=== PATIENT | male | born 1950 | race Two or more races ===

== ENCOUNTER 2024-01-05 21:29 | Inpatient (IN) | payer MEDICARE, MEDICAID ==
[~2024-01-05] VITALS: Ht 172.7 cm; Wt 76.3 kg
[2024-01-05 21:37] VITALS: PULSE 85; RESP 34; O2SAT 94
[2024-01-05 21:50] LABS: Base Excess -3.3 mmol/L (-2.0-2.0)
[2024-01-05] MEDS: ALBUTEROL SULF 2.5 MG/0.5ML(0.5%) NEB SOLN NEB ONE (22:37)
[2024-01-05] MEDS: FUROSEMIDE 40 MG/4 ML VIAL IV ONE (22:49)
[2024-01-05] MEDS: NITROGLYCERIN 2% OINT 1GM PKG TD ONE (22:49)
[2024-01-05 22:56] LABS: Basophils # (auto) 0 10 ^3/uL (0-0.2); Basophils % (auto) 0.2 % (0.0-2.0); Eosinophils # (auto) 0.1 10 ^3/uL (0-0.8); Eosinophils % (auto) 1.2 % (0.0-7.0); Hematocrit 35.6 % (41.0-53.0); Hemoglobin 12.3 g/dL (13.5-17.5); Lymphocytes # (auto) 1.1 10 ^3/uL (0.4-5.4); Lymphocytes % (auto) 10.1 % (10.0-50.0); Mean Corpuscular Hemoglobin 33.7 pg (28.0-32.0); Mean Corpuscular Hgb Conc. 34.5 g/dL (32.0-36.0); Mean Corpuscular Volume 97.6 fL (80.0-100.0); Monocytes # (auto) 1.3 10 ^3/uL (0-1.3); Monocytes % (auto) 12.1 % (0.0-12.0); Neutrophils # (auto) 8.1 10 ^3/uL (1.6-8.6); Neutrophils % (auto) 76.4 % (37.0-80.0); Red Blood Cells 3.65 10^6/uL (4.5-5.90); Red Cell Distribution Width 15.3 % (11.8-14.3); White Blood Cell 10.5 10^3/uL (4.4-10.8)
[2024-01-05] MEDS: LORazepam 2MG/ML-1ML VIAL IV ONE (23:00)
[2024-01-05 23:14] LABS: Alanine Aminotransferase 34 U/L (7-40); Albumin 4.2 g/dL (3.2-4.8); Alkaline Phosphatase 115 U/L (46-116); Anion Gap 12 (5-15); Aspartate Aminotransferase 22 U/L (13-40); BUN/Creatinine Ratio 5.9 (10.0-20.0); Bilirubin, Total 0.3 mg/dL (0.2-1.0); Blood Urea Nitrogen 62 mg/dL (9-23); Calcium 9.7 mg/dL (8.7-10.4); Carbon Dioxide 23 mmol/L (20-30); Chloride 97 mmol/L (98-107); Glucose 219 mg/dL (74-106); Potassium 4.8 mmol/L (3.5-5.1); Sodium 132 mmol/L (136-145); Total Protein 7.9 g/dL (5.7-8.2)
[2024-01-06] VITALS (9 sets, daily range): BP systolic 95–131; BP diastolic 52–71; PULSE 56–87; RESP 20–30; TEMP 99; O2SAT 92–100
[2024-01-06] MEDS: ASPirin 325 MG TAB PO ONE (00:27)
[2024-01-06] MEDS ORDERED: MORPHINE SULFATE INJ 2 MG/ml SYRG IV PRN (04:30)
[2024-01-06] MEDS ORDERED: DOCUSATE SOD 100 MG CAP PO PRN (04:30)
[2024-01-06] MEDS ORDERED: DEXTROSE (50%) 50ML SYRG IV PRN (04:30)
[2024-01-06] MEDS ORDERED: ONDANSETRON HCL 4 MG/2 ML VIAL IV PRN (04:30)
[2024-01-06] MEDS ORDERED: NITROGLYCERIN 0.4 MG SL TAB SL PRN (04:30)
[2024-01-06] MEDS ORDERED: HYDROcodone-ACET 5/325MG TAB PO PRN (04:30)
[2024-01-06] MEDS ORDERED: ACETAMINOPHEN 325 MG TAB PO PRN (04:30)
[2024-01-06] MEDS: HEPARIN SODIUM (PORCINE) 5000 UNITS/ML 1ML VIAL SC SCH (05:03)
[2024-01-06 05:46] LABS: Basophils # (auto) 0 10 ^3/uL (0-0.2); Basophils % (auto) 0.1 % (0.0-2.0); Eosinophils # (auto) 0 10 ^3/uL (0-0.8); Eosinophils % (auto) 0.2 % (0.0-7.0); Hematocrit 36.6 % (41.0-53.0); Hemoglobin 12.4 g/dL (13.5-17.5); Lymphocytes # (auto) 0.7 10 ^3/uL (0.4-5.4); Lymphocytes % (auto) 10.4 % (10.0-50.0); Mean Corpuscular Hemoglobin 33.3 pg (28.0-32.0); Mean Corpuscular Hgb Conc. 33.8 g/dL (32.0-36.0); Mean Corpuscular Volume 98.5 fL (80.0-100.0); Monocytes # (auto) 0.8 10 ^3/uL (0-1.3); Monocytes % (auto) 11.8 % (0.0-12.0); Neutrophils # (auto) 5.3 10 ^3/uL (1.6-8.6); Neutrophils % (auto) 77.5 % (37.0-80.0); Red Blood Cells 3.71 10^6/uL (4.5-5.90); Red Cell Distribution Width 15.5 % (11.8-14.3); White Blood Cell 6.8 10^3/uL (4.4-10.8)
[2024-01-06 06:00] LABS: INR 1.08 (0.9-1.15); Prothrombin Time 11.4 sec (9.3-11.8)
[2024-01-06 06:02] LABS: Alanine Aminotransferase 40 U/L (7-40); Alkaline Phosphatase 100 U/L (46-116); Anion Gap 10 (5-15); Aspartate Aminotransferase 135 U/L (13-40); Blood Urea Nitrogen 65 mg/dL (9-23); Calcium 9.5 mg/dL (8.7-10.4); Carbon Dioxide 24 mmol/L (20-30); Chloride 98 mmol/L (98-107); Glucose 166 mg/dL (74-106); Sodium 132 mmol/L (136-145)
[2024-01-06 06:03] LABS: Bilirubin, Total 0.3 mg/dL (0.2-1.0); Total Protein 7.6 g/dL (5.7-8.2)
[2024-01-06] MEDS: SODIUM CHLOR 0.9% PF (SALINE LOCK) 10ML VIAL/SYR IV SCH (06:05)
[2024-01-06 06:19] LABS: Potassium 5.7 mmol/L (3.5-5.1)
[2024-01-06] MEDS ORDERED: CALCIUM CHL 100MG/ML 1,000 MG in D5W 5% 100 ML IV ONE (06:30)
[2024-01-06] MEDS: CALCIUM GLUC 1,000mg/50ml-NS 50 ML IV ONE ×2 (06:46→06:55)
[2024-01-06] MEDS: DEXTROSE (50%) 50ML SYRG IV ONE (06:46)
[2024-01-06] MEDS: FUROSEMIDE 20 MG/2 ML VIAL IV ONE (06:47)
[2024-01-06] MEDS: SODIUM ZIRCONIUM CYCL 10 GM PAK PO ONE (06:47)
[2024-01-06] MEDS: InsuLIN REG 1unit/0.01ml Soln (100units/ml) IV ONE (06:48)
[2024-01-06] MEDS: SODIUM BICARB 8.4% 50Meq/50ml SYR INJ IV ONE (06:48)
[2024-01-06] MEDS: ACCU-CHEK COMFORT CURVE STRIP VI SCH ×2 (08:34→17:24)
[2024-01-06] MEDS: InsuLIN REG 1unit/0.01ml Soln (100units/ml) SC SCH ×2 (08:34→17:23)
[2024-01-06] MEDS: SEVELAMER 800 MG TAB PO SCH (08:35)
[2024-01-06] MEDS ORDERED: HEPARIN SODIUM (PORCINE) 5000 UNITS/ML 1ML VIAL SC SCH (10:00)
[2024-01-06] MEDS: CARVEDILOL 3.125 MG TAB PO SCH (10:11)
[2024-01-06] MEDS: B-COMPLEX W/ C & FOLIC ACID(NEPHROVITE TAB) PO SCH (10:12)
[2024-01-06] MEDS: ASPirin 81 mg TAB PO SCH (10:12)
[2024-01-06] MEDS: CLOPIDOGREL BISULFATE 75 MG TAB PO ONE (10:12)
[2024-01-06] MEDS: HEPARIN SODIUM (PORCINE) 5000 UNITS/ML 1ML VIAL IV ONE (10:13)
[2024-01-06] MEDS: HEPARIN DRIP/D5W 100UNITS/ML 250 ML IV SCH ×2 (10:21→19:45)
[2024-01-06 10:41] LABS: INR 1.09 (0.9-1.15); Partial Thromboplastin Time 27.9 SEC (24.5-34.5); Prothrombin Time 11.5 sec (9.3-11.8)
[2024-01-06] MEDS: CLOPIDOGREL BISULFATE 75 MG TAB PO SCH (14:40)
[2024-01-06] MEDS: SODIUM CHL 0.9% 1000 ML BAG XX ONE (15:30)
[2024-01-06] MEDS: ALBUMIN 25% 100 ML IV SCH (16:15)
[2024-01-06] MEDS: PANTOPRAZOLE 40 MG/10 ML VIAL INJ IV ONE (16:15)
[2024-01-06 17:58] LABS: INR 1.13 (0.9-1.15); Prothrombin Time 11.9 sec (9.3-11.8)
[2024-01-06 18:29] LABS: Partial Thromboplastin Time > 139.0 SEC (24.5-34.5)
[2024-01-06] MEDS: ATORVASTATIN 20 MG TAB PO SCH (22:24)
[2024-01-07] VITALS (13 sets, daily range): BP systolic 124–170; BP diastolic 66–80; PULSE 80–89; RESP 14–24; TEMP 98–99.2; O2SAT 93–100
[2024-01-07 00:58] LABS: INR 1.15 (0.9-1.15); Partial Thromboplastin Time 67.8 SEC (24.5-34.5); Prothrombin Time 12.1 sec (9.3-11.8)
[2024-01-07 05:21] LABS: Basophils # (auto) 0 10 ^3/uL (0-0.2); Basophils % (auto) 0.2 % (0.0-2.0); Eosinophils # (auto) 0 10 ^3/uL (0-0.8); Eosinophils % (auto) 0.4 % (0.0-7.0); Hematocrit 32.9 % (41.0-53.0); Hemoglobin 11.3 g/dL (13.5-17.5); Lymphocytes # (auto) 0.6 10 ^3/uL (0.4-5.4); Mean Corpuscular Hemoglobin 33.9 pg (28.0-32.0); Mean Corpuscular Hgb Conc. 34.4 g/dL (32.0-36.0); Mean Corpuscular Volume 98.5 fL (80.0-100.0); Monocytes % (auto) 16.9 % (0.0-12.0); Neutrophils # (auto) 4.2 10 ^3/uL (1.6-8.6); Neutrophils % (auto) 71.5 % (37.0-80.0); Nucleated Red Blood Cells % 0.1 %; Red Blood Cells 3.34 10^6/uL (4.5-5.90); Red Cell Distribution Width 15.3 % (11.8-14.3); White Blood Cell 5.8 10^3/uL (4.4-10.8)
[2024-01-07 05:40] LABS: Alanine Aminotransferase 41 U/L (7-40); Albumin 4.3 g/dL (3.2-4.8); Alkaline Phosphatase 71 U/L (46-116); Anion Gap 10 (5-15); Aspartate Aminotransferase 156 U/L (13-40); BUN/Creatinine Ratio 5.1 (10.0-20.0); Calcium 10.2 mg/dL (8.7-10.4); Carbon Dioxide 30 mmol/L (20-30); Chloride 99 mmol/L (98-107); Glucose 90 mg/dL (74-106); Sodium 139 mmol/L (136-145)
[2024-01-07 05:41] LABS: Bilirubin, Total 0.6 mg/dL (0.2-1.0); Total Protein 7.6 g/dL (5.7-8.2)
[2024-01-07 05:44] LABS: Blood Urea Nitrogen 39 mg/dL (9-23)
[2024-01-07 07:29] LABS: INR 1.16 (0.9-1.15); Partial Thromboplastin Time 57.5 SEC (24.5-34.5); Prothrombin Time 12.2 sec (9.3-11.8)
[2024-01-07] MEDS: PANTOPRAZOLE 40 MG/10 ML VIAL INJ IV SCH (09:39)
[2024-01-07] MEDS: LIDOCAINE 2%HCL (LOCAL ANESTH.) INJ 20ML MDV ONE (09:58)
[2024-01-07] MEDS: fentaNYL CITRATE 100 MCG/2 ML VL ONE (09:58)
[2024-01-07] MEDS: ANGIOMAX 250 MG VIAL IV ONE (09:58)
[2024-01-07] MEDS: VERAPAMIL 2.5MG/ML INJ 2ML VIAL IV ONE (09:58)
[2024-01-07] MEDS: MIDAZOLAM HCL 2MG/2ML 2ml VIAL (1mg/ml) ONE (09:58)
[2024-01-07] MEDS: IOHEXOL 350 MG/ML 100ML IJ ONE (09:59)
[2024-01-07] MEDS: SODIUM CHL 0.9% 0 ML ONE (09:59)
[2024-01-07] MEDS: IODIXANOL 320MG/ML 100ML BTL IV ONE ×3 (10:00→10:08)
[2024-01-07] MEDS: NITROGLYCERIN 50MG/250ML 0 ML IV ONE (10:11)
[2024-01-07] MEDS: HEPARIN SODIUM (PORCINE) 5000 UNITS/ML 1ML VIAL ONE (10:42)
[2024-01-07 14:33] LABS: INR 1.15 (0.9-1.15); Partial Thromboplastin Time 38.8 SEC (24.5-34.5); Prothrombin Time 12.1 sec (9.3-11.8)
[2024-01-07] MEDS ORDERED: OXYC15TA PO (15:13)
[2024-01-07] MEDS ORDERED: SEVE800T8 PO (15:13)
[2024-01-07] MEDS ORDERED: FURO40TA4 PO (15:13)
[2024-01-07] MEDS ORDERED: ASPI81CH59 PO (15:13)
[2024-01-07] MEDS ORDERED: ATOR80TA PO (15:13)
[2024-01-07] MEDS ORDERED: CARV25TA55 PO (15:13)
[2024-01-07] MEDS ORDERED: NIFE90TA75 PO (15:13)
[2024-01-07] MEDS ORDERED: ERGO1CAP12 PO (15:13)
[2024-01-07] MEDS ORDERED: TAMS0.4C36 PO (15:13)
[2024-01-07] MEDS ORDERED: MAGN400T40 PO (15:13)
[2024-01-07] MEDS ORDERED: OMEP-448 PO (15:13)
[2024-01-07] MEDS: HEPARIN DRIP/D5W 100UNITS/ML 250 ML IV SCH ×2 (15:23→23:53)
[2024-01-07 22:33] LABS: INR 1.14 (0.9-1.15); Partial Thromboplastin Time 51.9 SEC (24.5-34.5)
[2024-01-08] VITALS (7 sets, daily range): BP systolic 136–149; BP diastolic 69–77; PULSE 77–82; RESP 16–18; TEMP 97.4–98.6; O2SAT 94–100
[2024-01-08 06:23] LABS: INR 1.14 (0.9-1.15); Partial Thromboplastin Time 53.5 SEC (24.5-34.5)
[2024-01-08 06:48] LABS: Alanine Aminotransferase 29 U/L (7-40); Alkaline Phosphatase 69 U/L (46-116); Anion Gap 12 (5-15); Aspartate Aminotransferase 83 U/L (13-40); Bilirubin, Total 0.5 mg/dL (0.2-1.0); Carbon Dioxide 26 mmol/L (20-30); Chloride 99 mmol/L (98-107); Glucose 98 mg/dL (74-106); Potassium 3.9 mmol/L (3.5-5.1); Sodium 137 mmol/L (136-145)
[2024-01-08 06:49] LABS: Total Protein 7.1 g/dL (5.7-8.2)
[2024-01-08 06:52] LABS: Blood Urea Nitrogen 54 mg/dL (9-23)
[2024-01-08] MEDS ORDERED: SODIUM CHL 0.9% 1000 ML BAG XX ONE (07:00)
[2024-01-08 07:02] LABS: Basophils # (auto) 0 10 ^3/uL (0-0.2); Basophils % (auto) 0.2 % (0.0-2.0); Eosinophils # (auto) 0 10 ^3/uL (0-0.8); Hemoglobin 11.3 g/dL (13.5-17.5); Lymphocytes % (auto) 18.9 % (10.0-50.0); Mean Corpuscular Hemoglobin 33.3 pg (28.0-32.0); Mean Corpuscular Hgb Conc. 34.3 g/dL (32.0-36.0); Mean Corpuscular Volume 97.1 fL (80.0-100.0); Monocytes # (auto) 0.6 10 ^3/uL (0-1.3); Monocytes % (auto) 12.4 % (0.0-12.0); Neutrophils # (auto) 3.4 10 ^3/uL (1.6-8.6); Neutrophils % (auto) 67.5 % (37.0-80.0); Nucleated Red Blood Cells % 0.1 %; Red Cell Distribution Width 14.9 % (11.8-14.3)
[2024-01-08 13:38] LABS: INR 1.12 (0.9-1.15); Partial Thromboplastin Time 47.2 SEC (24.5-34.5); Prothrombin Time 11.8 sec (9.3-11.8)
[2024-01-08] MEDS: HEPARIN DRIP/D5W 100UNITS/ML 250 ML IV SCH (15:00)
== END 2024-01-08 18:50 | disposition short-term general hospital (02) | DRG 280 ==
LOC: EDBD 21:29 → ER 21:29 → TELE 01-06 04:37 → TELE-E-ADS 01-07 08:11
PROVIDERS: ADMIT Nurse Practitioner Family; ATTEND Internal Medicine
PROC: 5A09357 Assistance with Respiratory Ventilation, Less than 24 Consecutive Hours, Continuous Positive Airway Pressure (ICD-10-PCS; 2024-01-05)
PROC: 5A1D70Z Performance of Urinary Filtration, Intermittent, Less than 6 Hours Per Day (ICD-10-PCS; 2024-01-06)
PROC: 5A09357 Assistance with Respiratory Ventilation, Less than 24 Consecutive Hours, Continuous Positive Airway Pressure (ICD-10-PCS; 2024-01-06)
PROC: B211YZZ Fluoroscopy of Multiple Coronary Arteries using Other Contrast (ICD-10-PCS; principal; 2024-01-07)
PROC: 4A023N7 Measurement of Cardiac Sampling and Pressure, Left Heart, Percutaneous Approach (ICD-10-PCS; 2024-01-07)
PROC: B215YZZ Fluoroscopy of Left Heart using Other Contrast (ICD-10-PCS; 2024-01-07)
PROC: 5A1D70Z Performance of Urinary Filtration, Intermittent, Less than 6 Hours Per Day (ICD-10-PCS; 2024-01-08)
DX: I21.4 Non-ST elevation (NSTEMI) myocardial infarction (principal); I50.43 Acute on chronic combined systolic (congestive) and diastolic (congestive) heart failure; N18.6 End stage renal disease; J96.01 Acute respiratory failure with hypoxia; I13.2 Hypertensive heart and chronic kidney disease with heart failure and with stage 5 chronic kidney disease, or end stage renal disease; I25.10 Atherosclerotic heart disease of native coronary artery without angina pectoris; E11.22 Type 2 diabetes mellitus with diabetic chronic kidney disease; E11.65 Type 2 diabetes mellitus with hyperglycemia; D63.1 Anemia in chronic kidney disease; E78.5 Hyperlipidemia, unspecified; E87.5 Hyperkalemia; Z99.2 Dependence on renal dialysis
CPT/HCPCS: 36415; 36600; 71045; 80053; 82805; 82962; 83036; 83880; 84132; 84484; 85025; 85379; 85610; 85730; 86850; 86900; 86901; 87340; 90935; 93005; 93306; 93458; 94640; 94660; 96374; 96375; 97163; 99152; 99291; G0378; J1815; J2250; J2470; J7060; P9047; Q9967

== ENCOUNTER 2024-03-24 15:59 | Inpatient (IN) | payer MEDICARE, MEDICAID ==
[~2024-03-24] VITALS: Ht 177.8 cm; Wt 73.0 kg
[~2024-03-24 15:59] MED LIST: ASPI81CH59 PO; ATOR80TA PO; AZIT-43 PO; CARV25TA55 PO; ERGO1CAP12 PO; FURO40TA4 PO; MAGN400T40 PO; NIFE90TA75 PO; OMEP-448 PO; OXYC15TA PO; SEVE800T8 PO; TAMS0.4C39 PO
[2024-03-24 16:47] LABS: Base Excess 4.5 mmol/L (-2.0-3.0)
[2024-03-24 18:35] LABS: Basophils # (auto) 0 10 ^3/uL (0-0.2); Basophils % (auto) 0.4 % (0.0-2.0); Eosinophils # (auto) 0 10 ^3/uL (0-0.8); Hematocrit 27.7 % (41.0-53.0); Hemoglobin 9.6 g/dL (13.5-17.5); Lymphocytes # (auto) 0.7 10 ^3/uL (0.4-5.4); Lymphocytes % (auto) 15.7 % (10.0-50.0); Mean Corpuscular Hemoglobin 35.8 pg (28.0-32.0); Mean Corpuscular Hgb Conc. 34.5 g/dL (32.0-36.0); Mean Corpuscular Volume 103.5 fL (80.0-100.0); Monocytes # (auto) 0.5 10 ^3/uL (0-1.3); Monocytes % (auto) 11.1 % (0.0-12.0); Neutrophils # (auto) 3.3 10 ^3/uL (1.6-8.6); Neutrophils % (auto) 71.8 % (37.0-80.0); Nucleated Red Blood Cells % 0.1 %; Platelet Count (auto) 198 10^3/uL (140-450); Red Blood Cells 2.67 10^6/uL (4.5-5.90); Red Cell Distribution Width 16.1 % (11.8-14.3); White Blood Cell 4.6 10^3/uL (4.4-10.8)
[2024-03-24 18:51] LABS: Alanine Aminotransferase 19 U/L (7-40); Albumin 4.3 g/dL (3.2-4.8); Alkaline Phosphatase 86 U/L (46-116); Anion Gap 9 (5-15); Aspartate Aminotransferase 16 U/L (13-40); BUN/Creatinine Ratio 7.2 (10.0-20.0); Blood Urea Nitrogen 65 mg/dL (9-23); Calcium 10.5 mg/dL (8.7-10.4); Carbon Dioxide 30 mmol/L (20-30); Chloride 97 mmol/L (98-107); Glucose 97 mg/dL (74-106); Potassium 4.8 mmol/L (3.5-5.1); Sodium 136 mmol/L (136-145)
[2024-03-24 18:52] LABS: Bilirubin, Total 0.3 mg/dL (0.2-1.0); Total Protein 7.5 g/dL (5.7-8.2)
[2024-03-24] MEDS ORDERED: DEXTROSE (50%) 50ML SYRG IV PRN (19:00)
[2024-03-24 22:30] VITALS: PULSE 88; RESP 18; O2SAT 96
[2024-03-24] MEDS: ACCU-CHEK COMFORT CURVE STRIP VI SCH (22:34)
[2024-03-24] MEDS: InsuLIN REG 1unit/0.01ml Soln (100units/ml) SC SCH (22:34)
[2024-03-24] MEDS: SEVELAMER 800 MG TAB PO ONE (22:37)
[2024-03-24] MEDS ORDERED: MORPHINE SULFATE INJ 2 MG/ml SYRG IV PRN (23:15)
[2024-03-24] MEDS ORDERED: ONDANSETRON HCL 4 MG/2 ML VIAL IV PRN (23:15)
[2024-03-24] MEDS ORDERED: NITROGLYCERIN 0.4 MG SL TAB SL PRN (23:15)
[2024-03-24] MEDS: ENOXAPARIN SOD 100 MG/1 ML SYRINGE SC ONE (23:45)
[2024-03-25] VITALS (10 sets, daily range): BP systolic 85–142; BP diastolic 50–78; PULSE 66–95; RESP 16–21; TEMP 97.5–98.1; O2SAT 97–100
[2024-03-25] MEDS: FUROSEMIDE 100 MG/10ML VIAL IV ONE (01:36)
[2024-03-25] MEDS: SEVELAMER 800 MG TAB PO SCH (08:41)
[2024-03-25] MEDS: NIFEdipine ER 30 MG TAB PO SCH (08:42)
[2024-03-25] MEDS: MAGNESIUM OXIDE 400 MG TAB PO SCH (08:43)
[2024-03-25] MEDS: CARVEDILOL 12.5 MG TAB PO SCH (08:43)
[2024-03-25] MEDS ORDERED: ALBUTEROL SULF 2.5 MG/0.5ML(0.5%) NEB SOLN NEB PRN (11:45)
[2024-03-25] MEDS ORDERED: IPRATROPIUM BROM 0.5 MG/2.5ML INH SOL NEB PRN (11:45)
[2024-03-25 12:44] LABS: Rapid Influenza A Negative (Negative); Rapid Influenza B Negative (Negative)
[2024-03-25 13:10] LABS: COVID19 ANTIGEN SOFIA FIA NEGATIVE (NEGATIVE)
[2024-03-25 14:41] LABS: Basophils # (auto) 0 10 ^3/uL (0-0.2); Basophils % (auto) 0.4 % (0.0-2.0); Eosinophils # (auto) 0 10 ^3/uL (0-0.8); Eosinophils % (auto) 0.8 % (0.0-7.0); Hematocrit 27.4 % (41.0-53.0); Hemoglobin 9.3 g/dL (13.5-17.5); Lymphocytes # (auto) 0.6 10 ^3/uL (0.4-5.4); Lymphocytes % (auto) 9.7 % (10.0-50.0); Mean Corpuscular Hemoglobin 31.4 pg (28.0-32.0); Mean Corpuscular Hgb Conc. 33.9 g/dL (32.0-36.0); Mean Corpuscular Volume 92.8 fL (80.0-100.0); Monocytes # (auto) 0.6 10 ^3/uL (0-1.3); Monocytes % (auto) 10.9 % (0.0-12.0); Neutrophils # (auto) 4.6 10 ^3/uL (1.6-8.6); Neutrophils % (auto) 78.2 % (37.0-80.0); Platelet Count (auto) 205 10^3/uL (140-450); Red Blood Cells 2.96 10^6/uL (4.5-5.90); Red Cell Distribution Width 16.1 % (11.8-14.3); White Blood Cell 5.8 10^3/uL (4.4-10.8)
[2024-03-25 14:52] LABS: Chloride 100 mmol/L (98-107); Potassium 3.3 mmol/L (3.5-5.1); Sodium 140 mmol/L (136-145)
[2024-03-25 14:53] LABS: Anion Gap 8 (5-15); Carbon Dioxide 32 mmol/L (20-30)
[2024-03-25 14:54] LABS: Calcium 9.8 mg/dL (8.7-10.4)
[2024-03-25 14:58] LABS: BUN/Creatinine Ratio 8.2 (10.0-20.0); Glucose 97 mg/dL (74-106)
[2024-03-25 14:59] LABS: Magnesium 2.5 mg/dL (1.6-2.6)
[2024-03-25 15:00] LABS: Phosphorus 3.3 mg/dL (2.4-5.1)
[2024-03-25 15:04] LABS: Blood Urea Nitrogen 46 mg/dL (9-23); Triglycerides 114 mg/dL (< 150)
[2024-03-25 15:05] LABS: LDL Cholesterol 30 mg/dL (< 100)
[2024-03-25 15:06] LABS: Cholesterol 86 mg/dL (< 200); HDL Cholesterol 30 mg/dL (40-59)
[2024-03-25] MEDS ORDERED: SODIUM CHL 0.9% 1000 ML BAG XX ONE (16:00)
[2024-03-25] MEDS ORDERED: ATORVASTATIN 20 MG TAB PO SCH (22:00)
[2024-03-25] MEDS: SACUBITRIL-VALSARTAN 24mg/26mg TAB PO SCH (22:53)
[2024-03-25] MEDS: ATORVASTATIN 20 MG TAB PO SCH (22:53)
[2024-03-26] VITALS (7 sets, daily range): BP systolic 109–124; BP diastolic 52–62; PULSE 67–75; RESP 14–20; TEMP 36.7; O2SAT 98–100
[2024-03-26] MEDS: ACETAMINOPHEN 325 MG TAB PO ONE (05:57)
[2024-03-26 07:18] LABS: Anion Gap 10 (5-15); Calcium 9.9 mg/dL (8.7-10.4); Carbon Dioxide 29 mmol/L (20-30); Chloride 99 mmol/L (98-107); Potassium 3.7 mmol/L (3.5-5.1); Sodium 138 mmol/L (136-145)
[2024-03-26 07:24] LABS: BUN/Creatinine Ratio 6.2 (10.0-20.0); Blood Urea Nitrogen 44 mg/dL (9-23); Glucose 136 mg/dL (74-106)
[2024-03-26 07:39] LABS: Basophils # (auto) 0 10 ^3/uL (0-0.2); Basophils % (auto) 0.4 % (0.0-2.0); Eosinophils # (auto) 0.1 10 ^3/uL (0-0.8); Eosinophils % (auto) 1.6 % (0.0-7.0); Lymphocytes # (auto) 0.8 10 ^3/uL (0.4-5.4); Monocytes # (auto) 0.7 10 ^3/uL (0-1.3); Neutrophils # (auto) 2.5 10 ^3/uL (1.6-8.6); White Blood Cell 4.1 10^3/uL (4.4-10.8)
[2024-03-26 07:42] LABS: Hematocrit 25.4 % (41.0-53.0); Hemoglobin 8.8 g/dL (13.5-17.5); Lymphocytes % (auto) 20.2 % (10.0-50.0); Mean Corpuscular Hemoglobin 35.6 pg (28.0-32.0); Mean Corpuscular Hgb Conc. 34.6 g/dL (32.0-36.0); Mean Corpuscular Volume 102.6 fL (80.0-100.0); Neutrophils % (auto) 60.8 % (37.0-80.0); Platelet Count (auto) 171 10^3/uL (140-450); Red Blood Cells 2.48 10^6/uL (4.5-5.90); Red Cell Distribution Width 15.5 % (11.8-14.3)
[2024-03-26 08:53] LABS: Hepatitis B Surface Antigen Negative (Negative)
[2024-03-26 09:20] LABS: Hepatitis C Antibody Reactive (Negative)
[2024-03-26] MEDS: ASPirin 81 mg TAB PO SCH (09:38)
[2024-03-26] MEDS: CARVEDILOL 12.5 MG TAB PO SCH (09:39)
[2024-03-26] MEDS: NIFEdipine ER 30 MG TAB PO SCH (09:39)
[2024-03-26] MEDS ORDERED: NIFEdipine ER 30 MG TAB PO SCH (10:00)
== END 2024-03-26 17:00 | disposition home or self-care (01) | DRG 280 ==
LOC: ER 15:59 → TELE 23:18 → TELE-EAST 03-25 02:54
PROVIDERS: ADMIT Internal Medicine; ATTEND Emergency Medicine
PROC: 5A1D70Z Performance of Urinary Filtration, Intermittent, Less than 6 Hours Per Day (ICD-10-PCS; principal; 2024-03-25)
DX: I13.2 Hypertensive heart and chronic kidney disease with heart failure and with stage 5 chronic kidney disease, or end stage renal disease (principal); I50.43 Acute on chronic combined systolic (congestive) and diastolic (congestive) heart failure; I21.A1 Myocardial infarction type 2; J96.20 Acute and chronic respiratory failure, unspecified whether with hypoxia or hypercapnia; N18.6 End stage renal disease; D63.1 Anemia in chronic kidney disease; E11.22 Type 2 diabetes mellitus with diabetic chronic kidney disease; I27.20 Pulmonary hypertension, unspecified; N40.0 Benign prostatic hyperplasia without lower urinary tract symptoms; B19.20 Unspecified viral hepatitis C without hepatic coma; Z20.822 Contact with and (suspected) exposure to COVID-19; E21.3 Hyperparathyroidism, unspecified; D50.9 Iron deficiency anemia, unspecified; E78.5 Hyperlipidemia, unspecified; I25.10 Atherosclerotic heart disease of native coronary artery without angina pectoris; Z99.2 Dependence on renal dialysis; Z95.1 Presence of aortocoronary bypass graft; Z99.81 Dependence on supplemental oxygen
CPT/HCPCS: 36415; 36600; 71045; 71250; 80048; 80053; 80061; 82306; 82607; 82728; 82805; 82962; 83540; 83550; 83605; 83735; 83880; 83970; 84100; 84484; 85025; 85379; 86803; 87081; 87340; 87426; 87804; 90935; 93005; 93306; 93970; 99291; G0378; J1815

== ENCOUNTER → 2024-08-24 | Outpatient (CLI) | payer MEDICARE, MEDICAID ==
[2024-08-24] MEDS: REGADENOSON 0.4 MG/5 ML SYRG IV ONE ×2 (10:30→10:33)
--- NOTE | 2024-08-24 18:01 | DVHSR ---
APPROVED REPORT Exam: Nuclear Stress Test Indication: Chest Pain Stress Tech: Iesha Live Ht: 5 ft 9 in Wt: 165 lbs BSA: 1.90 m2 HR: 61 bpm BP: 117/53 mmHg BMI: 24.36 Rhythm: NSR Medical History Medical History: HTN, CABG (3), ESRD with hemodialysis, DM, AR, CHF, EF 45% Allergies: No known drug allergies Stress Test Details Stress Test: Pharmacologic stress testing performed using 0.4 mg of regadenoson per 5 mL given IV ov er 10 seconds. Reason for pharmacologic stress test: Chest Pain. HR Resting HR: 61 bpmMax Heart Rate (APMHR): 147.435131 bpm Max HR Achieved: 72 bpmTarget HR (85% APMHR): 124.661549 bpm % of APMHR: 48.98 Recovery HR: 66 bpm BP Resting BP: 117/53 mmHg Recovery BP: 101/49 mmHg ECG Resting ECG: NSR Clinical Reason for Termination: Completed protocol Nurse Comments uneventful test Stress ECG Conclusion lvef 38% moderate LV dysfuntction inferolateral wall ischemia and infarct this is an abnormal study, ischeia is present NM EXAM: Myocardial Perfusion REST/STRESS Imaging Protocol: Rest Tc-99m/Stress Tc-99m 1 day Resting Data Rest SPECT myocardial perfusion imaging was performed in supine position 60 minutes following the int ravenous injection of 12.7 mCi of Tc-99m Sestamibi. Time of rest injection: 0900 Time of rest imagin Administration Route: IV Administration Site: Right Arm Pharmacologic Stress Pharmacologic stress test was performed by injecting Regadenoson 0.4 mg IV push followed by the intra venous injection of 32.5 mCi of Tc-99m Sestamibi. Time of stress injection: 1031 Time of stress imagin Administration Route: IV Administration Site: Right Arm Gated Stress SPECT was performed 60 minutes after stress injection. The images were gated to evaluate regional wall motion and calculate left ventricular ejection fracti on. Stress only was performed in the Supine position. Nuclear Conclusion Nuclear Findings: positive for ischemia lvef 38% moderate LV dysfuntction inferolateral wall ischemia and infarct this is an abnormal study, ischeia is present
== END | disposition home or self-care (01) ==
LOC: XYW 08:14
PROVIDERS: ATTEND Internal Medicine
DX: I25.9 Chronic ischemic heart disease, unspecified (principal); R07.9 Chest pain, unspecified
CPT/HCPCS: 78452; 93017; A9500; J2785

== ENCOUNTER 2024-08-31 16:23 | Inpatient (IN) | payer MEDICARE, MEDICAID ==
[~2024-08-31] VITALS: Ht 175.3 cm; Wt 75.0 kg
--- NOTE | 2024-08-31 16:27 | ECG ---
[facility] Test Date: 2024-08-31 Test Time: 16:26:15 Pat Name: MAXIMUS MAR Department: er Room: Gender: M Third Cook: brianna : 1950 Requested By: KANG CHAVIRA Order Number: [id number] Reading MD: Measurements Intervals [place] Rate: 67 P: 104 [place]: 165 QRS: 16 QRSD: 98 T: 101 QT: 405 QTc: 428 Interpretive Statements Sinus rhythm LVH with secondary repolarization abnormality Anterior Q waves, possibly due to LVH Baseline wander in lead(s) V6 Please click the below link to view image of tracing.
[2024-08-31 17:09] VITALS: PULSE 63; RESP 20; O2SAT 94
[2024-08-31] MEDS: NITROGLYCERIN 2% OINT 1GM PKG TD ONE (17:10)
--- NOTE | 2024-08-31 17:27 | DVH ---
EXAM: XY CHEST PORTABLE TECHNIQUE: Single frontal chest radiograph CLINICAL HISTORY: cp sob COMPARISON: XY CHEST XRAY 1 VIEW on DOS: 03/24/24, XY CHEST PORTABLE on DOS: 01/07/24, XY CHEST PORTABLE on DOS: 01/05/24 Findings/Impression: Frontal chest radiograph demonstrates no acute osseous or superficial soft tissue abnormalities. The trachea is midline. The cardiac silhouette and mediastinum are within normal limits. Small left pleural effusion and/or atelectasis. A superimposed infectious process is not excluded. No pneumothorax.
[2024-08-31 17:50] LABS: Basophils # (auto) 0 10 ^3/uL (0-0.2); Basophils % (auto) 0.3 % (0.0-2.0); Eosinophils # (auto) 0.1 10 ^3/uL (0-0.8); Eosinophils % (auto) 0.9 % (0.0-7.0); Hematocrit 34.5 % (41.0-53.0); Hemoglobin 11.5 g/dL (13.5-17.5); Lymphocytes # (auto) 0.9 10 ^3/uL (0.4-5.4); Lymphocytes % (auto) 12.8 % (10.0-50.0); Mean Corpuscular Hemoglobin 31.7 pg (28.0-32.0); Mean Corpuscular Hgb Conc. 33.3 g/dL (32.0-36.0); Mean Corpuscular Volume 95.2 fL (80.0-100.0); Monocytes # (auto) 0.9 10 ^3/uL (0-1.3); Nucleated Red Blood Cells % 0.1 %; Platelet Count (auto) 168 10^3/uL (140-450); Red Blood Cells 3.62 10^6/uL (4.5-5.90); Red Cell Distribution Width 17.2 % (11.8-14.3); White Blood Cell 6.9 10^3/uL (4.4-10.8)
[2024-08-31 17:57] LABS: Chloride 93 mmol/L (98-107); Potassium 5.1 mmol/L (3.5-5.1); Sodium 133 mmol/L (136-145)
[2024-08-31 17:58] LABS: Anion Gap 16 (5-15); Carbon Dioxide 24 mmol/L (20-31)
[2024-08-31 17:59] LABS: Calcium 10.6 mg/dL (8.7-10.4)
[2024-08-31 18:03] LABS: BUN/Creatinine Ratio 6.7 (10.0-20.0)
[2024-08-31 18:08] LABS: Glucose 130 mg/dL (74-106)
[2024-08-31 18:09] LABS: Blood Urea Nitrogen 84 mg/dL (9-23)
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
[2024-08-31] MEDS ORDERED: NITROGLYCERIN 0.4 MG SL TAB SL PRN (21:15)
--- NOTE | 2024-08-31 21:33 | DVHHPRES ---
History of Present Illness Resident Creating Document: BEULAH COTA Reason for Visit: chest pain History of Present Illness A 74y old male with PMHx sp/CAGB, ESRD, DM, HFrEF who came due to chest pain. According with the patient he started to have the pain at noon yesterday [facility], the pain is retrosternal, burning sensation, that comes and goes, according to him 12/15 right now, but is better compare with yesterday. Patient also states that he has pain when he walks and his NYHA is II. Patient also stated that he missed the dialysis session on Saturday. He denies any other symptoms. Talking with the , she is going to try to find the operative record of the surgery made on January 2024: 3 vessels bypass (CABG AT [facility]) Stress test Aug 2024: Nuclear Conclusion Nuclear Findings: positive for ischemia lvef 38% moderate LV dysfuntction inferolateral wall ischemia and infarct this is an abnormal study, ischemia is present Angiogram January 2024: 1. Left heart catheterization with left ventricular end-diastolic pressure measurement: With the help of a tiger five Greenlandic catheter as well as a J-tip wire we were able to cross the aortic valve and measured left ventricular end-diastolic pressure which was at 11 mm of mercury. There was no gradient across the aortic valve on the pullback. 2. Selective right and left coronary angiography utilizing right transradial approach: 1. Left main comes off the left coronary cusp it is widely patent it gives rise to a large left anterior descending artery as well as large left circumflex dominant system. 2. The left anterior descending artery it is a large gives rise to large diagonal branch, the 1st diagonal branch has subtotal occlusion at 99%, the dis gladys vessels reconstitute by collaterals from the left anterior descending artery distal part, after the takeoff of the 1st diagonal branch there is a tight tubular stenosis and 90% in the mid LAD. The LAD is heavily calcified vessel. 3. The left circumflex artery it has a large dominant system at the proximal part of the left circumflex there is hazy tight stenosis indicating likely a culprit of the current presentation, again it is heavily calcified vessel it gives rise to two medium-sized obtuse marginal branches and it continues distally as large posterior descending artery as well as large posterolateral branch. 4. The right coronary artery is a nondominant small vessel without significant disease. Impression and plan: 1. Diffuse three-vessel disease in the left dominant system involving mid LAD, subtotal large diagonal branch, as well as proximal large dominant left circumflex system. 2, Moderately reduced left ventricular systolic function estimated ejection fraction 40% based on the echo findings. 3. Gained of the diffuse nature of the disease in the patient has as well as reduced ejection fraction I would recommend coronary artery bypass revascularization as the best option for this patient, he has good distal targets. Last ECHO: 07/23/24 Normal left ventricular size with an ejection fraction of 35-40%. Severe hypokinesis of the posterior wall. Moderately dilated right ventricle with mildly decreased systolic function. Grade II diastolic dysfunction with evidence of elevated left-sided filling pressure. No hemodynamically significant valvular disease. No significant pericardial effusion. PA systolic pressure is not adequately estimated. ECHO: 03/25/24 Moderately reduced left ventricular systolic function estimated ejection fraction of 45%. There is anterior anteroseptal wall hypokinesia. There is a grade1 diastolic dysfunction. Normal right ventricular size and dimension. Mildly reduced left ventricular systolic function. Mildly elevated right ventricular systolic [id number] mm of mercury. Normal biatrial size and dimension. There is moderate to severe mitral valve regurgitation. The aortic valve appears normal structure and function. Normal tricuspid valve structure and function. The pulmonary valve is grossly normal. No pericardial effusion. Home meds: Aspirin 81 atorvastatin 80 carvedilol 25 b.i.d. vitamin-D 64121 weekly furosemide 40 daily nifedipine 90 daily omeprazole 40 daily oxycodone 50 mg daily sevelamer 2 tablets t.i.d. tamsulosin 0.8 daily EKG: sinus rhythm, LVH, pathological q waves, ST deviations in lateral leads Review of Systems Constitutional: No: Fever, Chills, Sweats, Weakness, Malaise, Other Eyes: No: Pain, Vision change, Conjunctivae inflammation, Eyelid inflammation, Other, Redness ENT: No: Ear pain, Ear discharge, Nose pain, Nose discharge, Nose congestion, Mouth pain, Mouth swelling, Throat pain, Throat swelling, Other Respiratory: SOB with excertion; No: Cough, Dry, Shortness of breath, Wheezing, Hemoptysis, Pleuritic Pain, Sputum, Wheezing, Other Cardiovascular: Chest Pain; No: Palpitations, Orthopnea, Paroxysmal Noc. Dyspnea, Edema, Lt Headedness, Other Gastrointestinal: No: Nausea, Vomiting, Abdominal Pain, Diarrhea, Constipation, Melena, Hematochezia, Other Genitourinary: No Dysuria, No Frequency, No Incontinence, No Hematuria, No Retention, No Other Musculoskeletal: No: other, neck pain, shoulder pain, arm pain, back pain, hand pain, leg pain, foot pain Skin: No: Rash, Lesions, Jaundice, Bruising, Other Neurological: No: Weakness, Numbness, Incoordination, Change in speech, Confusion, Seizures, Other Allergies: Coded Allergies: NO KNOWN ALLERGIES (Unverified , 01/05/24) Medications Current Medications Medications Dose Ordered Sig/Edson Route Start Time Stop Time Status Last Admin Dose Admin Nitroglycerin 0.4 mg Q5MINP PRN SL 08/31/24 21:15 UNV Morphine Sulfate 2 mg Q30M PRN IV 08/31/24 21:15 UNV Heparin Sodium/ Dextrose 250 ml @ 9 mls/hr Q24H IV 08/31/24 21:15 UNV Aspirin 81 mg DAILY PO 09/01/24 10:00 UNV Atorvastatin Calcium 80 mg DAILY PO 08/31/24 21:15 UNV Exam Vital Signs Vital Signs Date Time Temp Pulse Resp B/P (MAP) Pulse Ox O2 Delivery O2 Flow Rate FiO2 08/31/24 20:04 60 14 112/49 (70) 95 08/31/24 18:23 98.8 98.8 08/31/24 17:09 Room Air* 0 21 General Appearance: Alert, Oriented X3, Cooperative HEENT: Atraumatic, PERRLA Respiratory: Clear to auscultation, Normal air movement Cardiovascular: Regular rate, Normal S1 Abdominal: Normal bowel sounds, Soft Extremities: No clubbing, No cyanosis Skin: No rashes, No breakdown Neuro: Normal gait, Normal speech Psych/Mental Status: Mental status NL, Mood NL Labs/Xrays Labs Test 08/31/24 18:48 08/31/24 16:55 Range/Units Troponin I High Sensitivity 507 *H </=54 ng/L White Blood Count 6.9 4.4-10.8 10^3/uL Red Blood Count 3.62 L 4.5-5.90 10^6/uL Hemoglobin 11.5 L 13.5-17.5 g/dL Hematocrit 34.5 L 41.0-53.0 % Mean Corpuscular Volume 95.2 80.0-100.0 fL Mean Corpuscular Hemoglobin 31.7 28.0-32.0 pg Mean Corpuscular Hemoglobin Concent 33.3 32.0-36.0 g/dL Red Cell Distribution Width 17.2 H 11.8-14.3 % Platelet Count 168 140-450 10^3/uL Mean Platelet Volume 7.4 6.9-10.8 fL Neutrophils (%) (Auto) 73.0 37.0-80.0 % Lymphocytes (%) (Auto) 12.8 10.0-50.0 % Monocytes (%) (Auto) 13.0 H 0.0-12.0 % Eosinophils (%) (Auto) 0.9 0.0-7.0 % Basophils (%) (Auto) 0.3 0.0-2.0 % Neutrophils # (Auto) 5.0 1.6-8.6 10 ^3/uL Lymphocytes # (Auto) 0.9 0.4-5.4 10 ^3/uL Monocytes # (Auto) 0.9 0-1.3 10 ^3/uL Eosinophils # (Auto) 0.1 0-0.8 10 ^3/uL Basophils # (Auto) 0 0-0.2 10 ^3/uL Nucleated Red Blood Cells 0.1 % Sodium Level 133 L 136-145 mmol/L Potassium Level 5.1 3.5-5.1 mmol/L Chloride Level 93 L 98-107 mmol/L Carbon Dioxide Level 24 20-31 mmol/L Anion Gap 16 H 5-15 Blood Urea Nitrogen 84 *H 9-23 mg/dL Creatinine 12.53 *H 0.700-1.30 mg/dL Glomerular Filtration Rate Calc 4 >90 mL/min BUN/Creatinine Ratio 6.7 L 10.0-20.0 Serum Glucose 130 H 74-106 mg/dL Calcium Level 10.6 H 8.7-10.4 mg/dL B-Type Natriuretic Peptide 3033.15 0-100 pg/mL Assessment/Plan Assessment/Plan #ACS #NSTEMI type 1 #Inferolateral wall ischemia and infarct #s/p CABG #Acute on chronic HFrEF #ESRD #Hypertension #DM type 2 #Chronic hepC? Admit Renal diet NPO after midnight Heparin drip Aspiring 325 mg already given, continue 81 mg BPs soft, carvedilol low dose Atorvastatin 80 mg Morphine for chest pain Cardiology consult due to ACS with recent stress positive, no ST elevation Nephrology consult for dialysis Pending operative records from [place] Hold on BPs meds for now No crackles, no edema: hold on furosemide for now Case discussed with Dr Ji Time spent on care 23 min Plan discussed with: Patient, Other My Orders Orders - BEULAH COTA RESIDENT Procedure Category Date Status Time Admit ADMIT 08/31/24 Transmitted 21:03 Nitroglycerin [facility] 08/31/24 Logged Sublingual (Ntrostat 21:15 Morphine Sulfate [facility] 08/31/24 Logged Injection 21:15 Oxygen By Nasal RT 08/31/24 Transmitted Cannula 21:03 Stat Ekg For Chest [facility] 08/31/24 In Process Pain 21:03 Notify Md Of Changes [facility] 08/31/24 In Process From Base 21:03 Tariff Inspector For [facility] 08/31/24 In Process 24 Hours 21:03 Emergency Dysrhythmia [facility] 08/31/24 In Process Protocol 21:03 Rhythm Strips Once [facility] 08/31/24 In Process Every Shift 21:03 Platelet Monitoring [facility] 08/31/24 In Process 21:03 Heparin Per [facility] 08/31/24 In Process Standardized Proce 21:03 Discontinue All Im [facility] 08/31/24 In Process Injections 21:03 PTPTT LAB 08/31/24 Logged 21:03 Complete Blood Count LAB 08/31/24 Logged 21:03 Heparin Drip/D5w [facility] 08/31/24 Logged 100units/Ml 21:15 Aspirin Tablet [facility] 09/01/24 Logged 10:00 Atorvastatin (Lipitor) [facility] 08/31/24 Logged 21:15 Renal DIET 09/01/24 Transmitted Standard(2gna,3gk,Lopho) Breakfast * Cardiology Consult CONS 08/31/24 Transmitted 21:03 *Dr. [facility] -Da CONS 08/31/24 Transmitted Eleni 21:03 Date of Service: Aug 31, 2024 Billing Provider: AYDE JI MD Common Visit Codes: 37020-[id number] INP/OBS CARE (HIGH) Secondary Visit Codes: [id number] CARE PLAN 30 MINUTES BEULAH COTA RESIDENT Aug 31, 2024 21:33 AYDE JI MD Sep 01, 2024 19:55
[2024-08-31] MEDS ORDERED: HEPARIN DRIP/D5W 100UNITS/ML 250 ML IV SCH (22:00)
[2024-08-31 22:26] LABS: INR 1.13 (0.9-1.15); Partial Thromboplastin Time 21.1 SEC (24.5-34.5); Prothrombin Time 11.8 sec (9.3-11.8)
[2024-08-31] MEDS: ASPirin 325 MG TAB PO ONE (23:05)
[2024-08-31] MEDS: CARVEDILOL 3.125 MG TAB PO SCH (23:06)
[2024-08-31] MEDS: ATORVASTATIN 20 MG TAB PO SCH (23:06)
[2024-08-31] MEDS: MORPHINE SULFATE INJ 2 MG/ml SYRG IV ONE (23:09)
[2024-08-31] MEDS: ONDANSETRON HCL 4 MG/2 ML VIAL IV ONE (23:10)
[2024-08-31] MEDS: HEPARIN SODIUM (PORCINE) 5000 UNITS/ML 1ML VIAL IV ONE (23:15)
[2024-08-31] MEDS: HEPARIN DRIP/D5W 100UNITS/ML 250 ML IV SCH (23:25)
[2024-09-01] VITALS (20 sets, daily range): BP systolic 121–161; BP diastolic 73–96; PULSE 73–97; RESP 16–30; TEMP 97.1–97.7; O2SAT 87–100
[2024-09-01] MEDS: MORPHINE SULFATE INJ 2 MG/ml SYRG IV PRN (04:11)
[2024-09-01] MEDS ORDERED: ONDANSETRON HCL 4 MG/2 ML VIAL IV PRN (04:30)
[2024-09-01] MEDS ORDERED: MORPHINE SULFATE INJ 2 MG/ml SYRG IV PRN (04:30)
[2024-09-01] MEDS: ALPRAZolam 0.25 MG TAB PO ONE (05:36)
[2024-09-01 07:07] LABS: Basophils # (auto) 0 10 ^3/uL (0-0.2); Basophils % (auto) 0.2 % (0.0-2.0); Eosinophils # (auto) 0.1 10 ^3/uL (0-0.8); Hematocrit 36.2 % (41.0-53.0); Hemoglobin 12.1 g/dL (13.5-17.5); Lymphocytes # (auto) 0.9 10 ^3/uL (0.4-5.4); Lymphocytes % (auto) 9.8 % (10.0-50.0); Mean Corpuscular Hemoglobin 32.2 pg (28.0-32.0); Mean Corpuscular Hgb Conc. 33.5 g/dL (32.0-36.0); Mean Corpuscular Volume 96.1 fL (80.0-100.0); Monocytes # (auto) 1.1 10 ^3/uL (0-1.3); Monocytes % (auto) 11.3 % (0.0-12.0); Neutrophils # (auto) 7.5 10 ^3/uL (1.6-8.6); Neutrophils % (auto) 77.7 % (37.0-80.0); Nucleated Red Blood Cells % 0.2 %; Platelet Count (auto) 213 10^3/uL (140-450); Red Blood Cells 3.77 10^6/uL (4.5-5.90); Red Cell Distribution Width 17.6 % (11.8-14.3); White Blood Cell 9.6 10^3/uL (4.4-10.8)
[2024-09-01 07:18] LABS: INR 1.18 (0.9-1.15); Prothrombin Time 12.3 sec (9.3-11.8)
[2024-09-01 07:26] LABS: Alanine Aminotransferase 34 U/L (7-40); Albumin 4.5 g/dL (3.2-4.8); Alkaline Phosphatase 87 U/L (46-116); Anion Gap 16 (5-15); BUN/Creatinine Ratio 7.6 (10.0-20.0); Carbon Dioxide 24 mmol/L (20-31); Cholesterol 81 mg/dL (< 200); LDL Cholesterol 28 mg/dL (< 100); Total Protein 7.7 g/dL (5.7-8.2); Triglycerides 62 mg/dL (< 150)
[2024-09-01 07:36] LABS: Aspartate Aminotransferase 12 U/L (13-40); Bilirubin, Total 0.2 mg/dL (0.2-1.0); Calcium 10.8 mg/dL (8.7-10.4); Chloride 94 mmol/L (98-107); Glucose 141 mg/dL (74-106); HDL Cholesterol 37 mg/dL (40-59); Sodium 134 mmol/L (136-145)
[2024-09-01 07:37] LABS: Blood Urea Nitrogen 103 mg/dL (9-23); Potassium 5.7 mmol/L (3.5-5.1)
[2024-09-01 07:47] LABS: Partial Thromboplastin Time 97.7 SEC (24.5-34.5)
--- NOTE | 2024-09-01 08:50 | DVHINCON2 ---
Date Seen: Sep 01, 2024 Referring Physician MD Jalil resident Reason for Consultation NSTEMI, hx of CABG History of Present Illness This is a 74-year-old male patient who presents to emergency room chief complaint of worsening chest pain and shortness of breath for two days. Patient reports he noticed some chest pain after his christianity service on 08/30/24. He reports that he decided to go to urgent care yesterday after the pain was not subsiding and was brought here via ambulance from the urgent care. He describes the pain as unprovoked, constant, sharp in nature, substernal with radiation across the left and right side of his chest. Associated symptoms include sh ortness of breath and diaphoresis. Initial twelve lead electrocardiogram reveals normal sinus rhythm with left ventricular hypertrophy and nonspecific ST segment changes to lateral leads. Initial troponin level of 462ng/L with up- trend thereafter. Significant medical history includes severe coronary artery disease status post triple-vessel CABG on ASA therapy(01/2024), congestive heart failure, hypertension, dyslipidemia, COPD on home oxygen, end-stage renal disease on hemodialysis, type 2 diabetes mellitus, previous tobacco use and benign prostatic hyperplasia. The patient sees design transferrer in the outpatient setting. Of note, the patient recently underwent a Cardiolite stress test on 08/24/2024 in the outpatient setting in which nuclear findings were positive for ischemia. Past Medical History Past medical history reviewed. No other significant than mentioned above. Past Surgical History Triple-vessel CABG (01/2024) at [facility] Family History: FH: cancer G8 MOTHER FH: heart disease G8 FATHER Family History Family history reviewed. Social History Patient has a seven pack-year history, quit smoking approximately one year ago Denies any illicit drug use Denies any alcohol use Allergies: Coded Allergies: NO KNOWN ALLERGIES (Unverified , 01/05/24) Home Meds Reported Medications Azithromycin (Azithromycin) 250 Mg Tab, 1 TAB PO DAILY for 5 Days, #5 03/25/24 Tamsulosin Hcl (Tamsulosin Hcl) 0.4 Mg Cap, 2 CAP PO DAILY 01/07/24 Furosemide (Furosemide) 40 Mg Tab, 1 TAB PO DAILY 01/07/24 Ergocalciferol (Vitamin D) 50,000 Unit Cap, 1 CAP PO QWEEKLY 01/07/24 Omeprazole (Omeprazole Dr) 40 Mg Cap, 1 CAP PO DAILY 01/07/24 Aspirin (Aspirin Low Dose) 81 Mg Chw, 1 TAB PO DAILY 01/07/24 Sevelamer Carbonate (Renvela) 800 Mg Tab, 2 TAB PO TID 01/07/24 Magnesium Oxide (MAGNESIUM OXIDE) 400 Mg Tab, 1 TAB PO DAILY 01/07/24 Atorvastatin Calcium (Lipitor) 80 Mg Tab, 1 TAB PO DAILY 01/07/24 Nifedipine (Nifedipine Er) 90 Mg Tab, 1 TAB PO DAILY 01/07/24 Carvedilol (Carvedilol) 25 Mg Tab, 1 TAB PO BID 01/07/24 Oxycodone HCl (Oxycodone Hydrochloride) 15 Mg Tab, 1 TAB PO QID 01/07/24 Home Meds Home medications reviewed. Current Medications Current Medications Medications (Trade) Dose Ordered Sig/Edson Route PRN Reason Start Time Stop Time Status Last Admin Nitroglycerin (Ntrostat Sublingual) 0.4 mg Q5MINP PRN SL FOR CHEST PAIN 08/31/24 21:15 Morphine Sulfate 2 mg Q30M PRN IV FOR CHEST PAIN 08/31/24 21:15 09/01/24 04:11 Heparin Sodium/ Dextrose 250 ml @ 9 mls/hr Q24H IV 08/31/24 22:00 08/31/24 22:32 DC Aspirin 81 mg DAILY PO 09/01/24 10:00 Atorvastatin Calcium (Lipitor) 80 mg DAILY PO 08/31/24 21:15 08/31/24 23:06 Carvedilol (Coreg Tablet) 3.125 mg Q12HR PO 08/31/24 22:15 08/31/24 23:06 Heparin Sodium/ Dextrose 250 ml @ 9 mls/hr Q24H IV 08/31/24 22:30 08/31/24 23:25 Morphine Sulfate 2 mg Q4HPRN PRN IV SEVERE PAIN (7-10 PAIN SCALE) 09/01/24 04:30 Ondansetron HCl (Zofran) 4 mg Q4HPRN PRN IV NAUSEA / VOMITING 09/01/24 04:30 Review of Systems Constitutional: No symptom reported Ears, Nose, & Throat: No symptom reported Eyes: No symptom reported Neurological: No symptoms reported Pulmonary/Respiratory: Shortness of breath Cardiovascular: Chest pain Gastrointestinal: No symptom reported Genitourinary: No symptom reported Musculoskeletal: No symptom reported Skin: No symptom reported Psychiatric: No symptom reported Endocrine: No symptom reported Hematologic/Lymphatic: No symptom reported Vital Signs Vital Signs Date Time Temp Pulse Resp B/P (MAP) Pulse Ox O2 Delivery O2 Flow Rate FiO2 09/01/24 08:02 87 09/01/24 06:00 97.8 36 155/73 (100) 94 97.8 08/31/24 17:09 Room Air* 0 21 Physical Exam General Appearance: Cooperative. Diaphoretic Pulmonary/Respiratory: Diminished bilateral lower lobes Cardiovascular/Chest: Regular rate and rhythm. Peripheral Pulses: 2+ Radial (R). 2+ Radial (L). 2+ Pedal (R). 2+ Pedal (L) Abdominal Exam: Normal bowel sounds. Ankle Exam: Negative ankle edema Lower extremities: Negative lower extremity edema Neuro/Mental Status: A/OX4, coherent. Thoughts/Psych: Normal thought pattern. Appropriate mood and affect. Good judgment and insight. Appearance: No acute distress. Skin Exam: Normal inspection. Normal color. Warm and dry. Labs/Diagnostic Data Labs Test 09/01/24 06:20 09/01/24 06:15 08/31/24 16:55 Range/Units POC Glucose 157 H 70-106 mg/dl White Blood Count 9.6 # 4.4-10.8 10^3/uL Red Blood Count 3.77 L 4.5-5.90 10^6/uL Hemoglobin 12.1 L 13.5-17.5 g/dL Hematocrit 36.2 L 41.0-53.0 % Mean Corpuscular Volume 96.1 80.0-100.0 fL Mean Corpuscular Hemoglobin 32.2 H 28.0-32.0 pg Mean Corpuscular Hemoglobin Concent 33.5 32.0-36.0 g/dL Red Cell Distribution Width 17.6 H 11.8-14.3 % Platelet Count 213 140-450 10^3/uL Mean Platelet Volume 7.7 6.9-10.8 fL Neutrophils (%) (Auto) 77.7 37.0-80.0 % Lymphocytes (%) (Auto) 9.8 L 10.0-50.0 % Monocytes (%) (Auto) 11.3 0.0-12.0 % Eosinophils (%) (Auto) 1.0 0.0-7.0 % Basophils (%) (Auto) 0.2 0.0-2.0 % Neutrophils # (Auto) 7.5 1.6-8.6 10 ^3/uL Lymphocytes # (Auto) 0.9 0.4-5.4 10 ^3/uL Monocytes # (Auto) 1.1 0-1.3 10 ^3/uL Eosinophils # (Auto) 0.1 0-0.8 10 ^3/uL Basophils # (Auto) 0 0-0.2 10 ^3/uL Nucleated Red Blood Cells 0.2 % Prothrombin Time 12.3 H 9.3-11.8 sec Prothrombin Time INR 1.18 H 0.9-1.15 Activated Partial Thromboplast Time 97.7 *H 24.5-34.5 SEC Sodium Level 134 L 136-145 mmol/L Potassium Level 5.7 *H 3.5-5.1 mmol/L Chloride Level 94 L 98-107 mmol/L Carbon Dioxide Level 24 20-31 mmol/L Anion Gap 16 H 5-15 Blood Urea Nitrogen 103 #*H 9-23 mg/dL Creatinine 13.59 *H 0.700-1.30 mg/dL Glomerular Filtration Rate Calc 3 >90 mL/min BUN/Creatinine Ratio 7.6 L 10.0-20.0 Serum Glucose 141 H 74-106 mg/dL Calcium Level 10.8 H 8.7-10.4 mg/dL Total Bilirubin 0.2 0.2-1.0 mg/dL Aspartate Amino Transferase (AST) 12 L 13-40 U/L Alanine Aminotransferase (ALT) 34 7-40 U/L Alkaline Phosphatase 87 46-116 U/L Troponin I High Sensitivity 776 *H </=54 ng/L Total Protein 7.7 5.7-8.2 g/dL Albumin 4.5 3.2-4.8 g/dL Triglycerides Level 62 < 150 mg/dL Cholesterol Level 81 < 200 mg/dL LDL Cholesterol 28 < 100 mg/dL HDL Cholesterol 37 L 40-59 mg/dL Thyroid Stimulating Hormone (TSH) 1.38 0.55-4.78 uIU/mL B-Type Natriuretic Peptide 3033.15 0-100 pg/mL Assessment Chest pain, rule out progressive coronary artery disease Severe coronary artery disease status post triple-vessel CABG (on ASA) Acute on chronic decompensated HFrEF, NYHA class III Hypertension Dyslipidemia COPD with home oxygen dependence End-stage renal disease on hemodialysis Type 2 diabetes mellitus History of tobacco use Plan/Recommendation We will continue with the following plan/recommendations (Dr. Cardona): * Transthoracic echocardiogram from 07/23/24 reveals EF 35-40% * Initiate guideline directed medical therapy for CHF as renal function permits * Intake and output, daily weights, maintain fluid restriction * Chest pain protocol * HEART score: 9 points (high score) * FREDRICK score: 5 points * Continue heparin drip per pharmacy protocol * Continue single antiplatelet therapy and lipid-lowering agents * Cardiac surveillance Case discussed with . With the patient's clinical presentation, elevated troponin level, twelve lead electrocardiogram findings and comorbidities, we will recommend for the patient to undergo a coronary angiogram with left heart catheterization. The procedure was discussed with the patient in full detail including risks and benefits. Risks include but are not limited to bleeding, contrast-induced nephropathy, stroke, and even . The patient understands and is agreeable to undergo the procedure. We will schedule the patient at soonest availability on 09/01/24. Thank you for allowing us to care for this patient. Please call with any questions or concerns. Critical care time spent: 44 minutes This medical document was created using an electronic medical record system with voice recognition software and computerized dictation system. Although this document has been carefully reviewed, there might still be some phonetic and typographical errors. Occasional wrong-word or ``sound-alike substitutions may have occurred due to the inherent limitations of voice recognition software. These areas are purely typographical due to imperfections of the software programs and do not reflect any compromise in the patient's medical care. Please read the chart carefully and recognize, using context, where these substitutions have occurred. Plan discussed with: Patient NYHA Physical activity limitations: Class3(Marked) ordinary (activity causes symtoms) Date of Service: Sep 01, 2024 Billing Provider: CLOTILDE COLINDRES Cardiology Common Codes: 80588-EFRFALT INP/OBS CARE (High) Cardiology Consultation Codes: 14948-JRLUNWBYS CONSULT <45MIN CLOTILDE COLINDRES Sep 01, 2024 08:50
[2024-09-01] MEDS ORDERED: ALBUTEROL SULF 2.5 MG/0.5ML(0.5%) NEB SOLN NEB ONE (09:00)
[2024-09-01] MEDS: HEPARIN IN NS 1000Units/500mL 1,500 ML ONE (09:06)
[2024-09-01] MEDS: IODIXANOL 320MG/ML 100ML BTL IV ONE ×2 (09:06→10:21)
[2024-09-01] MEDS: SODIUM ZIRCONIUM CYCL 10 GM PAK PO ONE (09:08)
[2024-09-01] MEDS: DEXTROSE (50%) 50ML SYRG IV ONE (09:11)
[2024-09-01] MEDS: InsuLIN REG 1unit/0.01ml Soln (100units/ml) IV ONE (09:11)
[2024-09-01] MEDS: SODIUM BICARB 8.4% 50Meq/50ml SYR INJ IV ONE (09:11)
[2024-09-01] MEDS: FUROSEMIDE 20 MG/2 ML VIAL ONE (10:28)
[2024-09-01] MEDS: CLOPIDOGREL BISULFATE 75 MG TAB ONE ×3 (11:10→11:35)
[2024-09-01] MEDS: hydrALAZINE HCL 20 MG/ML VL ONE (11:12)
--- NOTE | 2024-09-01 11:46 | DVHOP2 ---
Operative Report - 2 Report Details Date: 09/01/24 Preop Diagnosis: CAD Postop Diagnosis: Successful PTCA and stenting with shockwave lithotripsy to the left anterior descending coronary artery. Surgeon: Charanjit Cardona MD Anesthesiologist: Conscious sedation. Anesthesia: Mac, Local (Versed and fentanyl were given for sedation. I personally monitored the patient and oversaw the administration of medication throughout the procedure..) Consent: The patient was informed of the risks and benefits of the procedure. These include but are not limited to complications of anesthesia, postoperative infection, incomplete relief of symptoms, recurrence of symptoms, damage to blood vessels, nerves and tendons, deep venous thrombosis, pulmonary embolism and possible need for repeat surgery in the future. Complications: No complications Estimated Blood Loss: 10 cc Findings: Significant stenosis of the left anterior descending coronary artery. Occluded saphenous graft to the RCA. Patent saphenous graft to the diagonal. Patent l eft internal mammary artery to the marginal branch. Indications for Surgery: Unstable angina. Acute coronary syndrome. Name of Procedure Performed Left heart catheterization. Bilateral cine coronary angiography. Left ventriculography. Shockwave lithotripsy therapy to the left anterior descending coronary artery. PTCA and stenting to the left anterior descending coronary artery. Visualization of saphenous venous grafts and left internal mammary artery. Procedure Details Procedure Details: Prior local anesthesia with 2% lidocaine to the right groin and full informed consent obtained. The patient was prepped and draped in usual fashion and under fluoroscopic and ultrasound guidance we placed a sheath into the right femoral artery and placed Gloria catheters to evaluate both right and left coronary ostia. The pigtail catheter was used for ventriculography. A right coronary bypass was used to evaluate for saphenous venous grafts. An internal mammary artery catheter was used to perform angiography of the internal mammary artery. A three five EBU guiding catheter was used to perform angioplasty along with a Guidezilla and wires as will be mentioned below. Hemodynamics: Aortic blood pressure was 140/80. End-diastolic pressure was 28. There was no gradient across the aortic valve on pullback. Coronary anatomy: The RCA is 100% occluded proximally. Left main is large and normal. Left anterior descending is significantly calcified in its proximal portion there is a 95% proximal stenosis. The mid and distal segments are free of significant disease. The circumflex is 100% occluded proximally. The saphenous venous graft to the RCA is occluded. The saphenous venous graft to the diagonal branch is patent. There is a small diagonal. The left internal mammary artery is anastomosed to the circumflex marginal. There was no stenosis in the marginal or the left internal mammary artery. Ventriculography: Ventriculography in the projection shows severe global hypokinesis. EF is approximately 20-25%. Angioplasty was then performed. The EBU guiding catheter was placed into the left main a Specter wire placed into the left anterior descending coronary artery. We then used a two five balloon that ruptured because of the calcium within the lesion. Subsequent to this we used a shockwave balloon but we could not get it into the actual lesion given the severe stenosis. We used a 2.5 mm noncompliant balloon and a Guidezilla to better guide the shockwave balloon into the calcified segment which was successful. We performed a series of treatments with a shockwave balloon with a 3 mm x 12 mm in length shockwave balloon. Proximally nine treatments were performed. We were then able to place a 3-0 by 18 mm stent into the proximal LAD with notable success and improvement of flow. Patient tolerated the procedure well there were no complications. FREDRICK two flow noted preprocedure. FREDRICK three flow noted postprocedure. Hydralazine was given for blood pressure. Impression successful PTCA stenting and lithotripsy of the left anterior descending coronary artery. Patent saphenous grafts to the diagonal. Patent CONKLIN to the circumflex. Occluded saphenous graft to the RCA. Decreased left ventricular ejection fraction. Elevated left ventricular end- diastolic pressure at rest. Recommendations afterload reduction and dual antiplatelet therapy to continue for patient. Dialysis to be performed on a routine basis as before. Condition Guarded Disposition Still a Patient Date of Service: Sep 01, 2024 Billing Provider: CHARANJIT CARDONA Sr., MD Cardiology Common Codes: 94434-CPTIUFW INP/OBS CARE (High) Cardiology Procedure Codes: 76883-MQH NONCORN ART BYPASS GTF, 08871-TNQDIV VESSEL W/I VASC FAM, 36255 -PTCA W/STENT PLACEMENT, 91471-EYLB ADD CORONARY BRANCH, 49267-OBOU ADD COR ART/BRNCH/GRFT, 78474-JSZY HEART CATH W/INTRA INJ CHARANJIT CARDONA Sr., MD Sep 01, 2024 11:46
[2024-09-01] MEDS ORDERED: IPRATROPIUM BROM 0.5 MG/2.5ML INH SOL NEB PRN (12:15)
[2024-09-01] MEDS: ASPirin 81 mg TAB PO SCH (12:47)
[2024-09-01] MEDS ORDERED: ALBUTEROL SULF 2.5 MG/0.5ML(0.5%) NEB SOLN ONE (13:39)
[2024-09-01 13:42] LABS: Anion Gap 18 (5-15); Carbon Dioxide 23 mmol/L (20-31)
[2024-09-01 13:47] LABS: BUN/Creatinine Ratio 8.6 (10.0-20.0)
[2024-09-01] MEDS: IPRATROPIUM BROM 0.5 MG/2.5ML INH SOL ONE (13:53)
[2024-09-01] MEDS: LEVALBUTEROL HCL 1.25 MG/3 ML NEB NEB PRN (13:53)
[2024-09-01 14:40] LABS: Calcium 10.4 mg/dL (8.7-10.4); Chloride 93 mmol/L (98-107); Glucose 143 mg/dL (74-106); Potassium 5.3 mmol/L (3.5-5.1); Sodium 134 mmol/L (136-145)
[2024-09-01 14:42] LABS: Blood Urea Nitrogen 117 mg/dL (9-23)
--- NOTE | 2024-09-01 15:37 | DVHPNRES ---
Progress Note Date Seen: Sep 01, 2024 Resident Creating Document: TESHA CARR RESIDENT Medical Necessity Reason Pt with a Central, PICC or Fol: No Subjective Review of Systems This is a 74-year-old male patient with past medical history of CABG January 2024 at [facility], diabetes mellitus type 2, ESRD on hemodialysis with [facility]- Saturday//Saturday, HFrEF who presented to the ER with a complaint of chest pain. Patient reports chest pain that started on 08/30 after his muslim service, location was retrosternal, burning in nature intermittent and rated it 6/10. Also reports shortness of breaths on exertion, but denies palpitation/fever/chills. Denies constipation/diarrhea he also missed his dialysis session on Saturday. Patient has a stress test done earlier this month which showed positive for ischemia, LVEF 38%, inferolateral wall ischemia and infarct. January 28-patient had diffuse three-vessel disease Last echo done in March 31 showed moderately reduced systolic function, LVEF 45%. Grade 1 diastolic dysfunction. Mildly elevated RVSP 28 mmHg. Home meds: Aspirin 81 atorvastatin 80 carvedilol 25 b.i.d. vitamin-D 65534 weekly furosemide 40 daily nifedipine 90 daily omeprazole 40 daily oxycodone 50 mg daily sevelamer 2 tablets t.i.d. tamsulosin 0.8 daily EKG: sinus rhythm, LVH, pathological q waves, ST deviations in lateral leads Patient seen and examined at the bedside. Underwent urgent catheterization by Dr. Cardona with 1 MENDEZ to the LAD. Objective vital signs Vital Sign Date Time Temp Pulse Resp B/P (MAP) Pulse Ox O2 Delivery O2 Flow Rate FiO2 09/01/24 15:02 89 20 153/87 99 9.0 09/01/24 13:53 Mask 09/01/24 13:53 90 09/01/24 11:39 97.1 97.1 Total Intake and Output 08/31/24 08/31/24 09/01/24 15:00 23:00 07:00 Intake Total 67.5 ml Balance 67.5 ml medications Current Medications Medications Dose Ordered Sig/Edson Route Start Time Stop Time Status Last Admin Dose Admin Nitroglycerin 0.4 mg Q5MINP PRN SL 08/31/24 21:15 Morphine Sulfate 2 mg Q30M PRN IV 08/31/24 21:15 09/01/24 04:11 2 MG Aspirin 81 mg DAILY PO 09/01/24 10:00 09/01/24 12:47 81 MG Atorvastatin Calcium 80 mg DAILY PO 08/31/24 21:15 09/01/24 12:47 80 MG Carvedilol 3.125 mg Q12HR PO 08/31/24 22:15 09/01/24 12:47 3.125 MG Morphine Sulfate 2 mg Q4HPRN PRN IV 09/01/24 04:30 Ondansetron HCl 4 mg Q4HPRN PRN IV 09/01/24 04:30 Levalbuterol HCl 1.25 mg Q4HP PRN NEB 09/01/24 12:15 09/01/24 13:53 1.25 MG Ipratropium [place] 0.5 mg Q4HPRN PRN NEB 09/01/24 12:15 Clopidogrel Bisulfate 75 mg DAILY PO 09/02/24 10:00 Examination Patient lying in bed, in no acute distress General: Well-built, afebrile, palor, mucosae are moist Cardiovascular: Regular S1 and S2. No murmurs, gallops or rubs. No JVD elevation. 1+ pitting edema bilaterally noted Respiratory: Decreased bilateral breath sounds heard on auscultation, saturating 95 on 3 L NC. Abdomen: Soft, nontender, nondistended, normoactive bowel sounds, no rebound tenderness, no organomegaly, no masses Genitourinary: Deferred MSK/skin: Mobilizes 4 limbs. Skin is dry and warm Neurological: No motor, no sensitive deficits, normal speech. Pupils are isocoric and reactive. Psych/Mental Status: A/Ox3 laboratory and microbiology Laboratory Tests 09/01/24 13:16 09/01/24 06:15 Test 09/01/24 13:16 Range/Units Serum Glucose 143 H 74-106 mg/dL Labs and/or images reviewed: Labs reviewed by me, Image(s) reviewed by me Problem List/Assessment/Plan Problem List/Assessment/Plan Coronary artery disease s/p 1 MENDEZ to the LAD Unstable angina NSTEMI type 1 History of CABG and triple-vessel disease Acute on chronic HFrEF exacerbation Acute on chronic hypoxic respiratory failure Mixed dyslipidemia Hypertension Underwent left heart catheterization 09/[address] Cardona-1 MENDEZ placed Continue aspirin and Plavix daily Continue atorvastatin 40 mg daily Continue Coreg 3.125 b.i.d., Acute on chronic hypoxic respiratory failure - on 2 L home oxygen Chronic COPD-no exacerbation Currently requiring 3 L NC Continue nebulized treatment with albuterol and ipratropium scheduled q.4 hours ESRD on hemodialysis with [facility] HD days Saturday//Saturday Underwent hemodialysis 09/01, 3 L taken out Diabetes mellitus type 2-hemoglobin A1c On mild ISS Anemia likely normocytic secondary to ESRD Hyperkalemia secondary to ESRD Monitor Hepatitis-C infection Outpatient PCR for viral load Diet, cardiac and renal Plan discussed with patient at the bedside in which all questions have been answered. Goals of care discussed with the patient for more than 26 minute, full code status Case discussed with Dr. Kennedy Plan discussed with: Patient My Orders My Orders Orders - TESHA CARR Procedure Category Date Status Time * Cardiology Consult CONS 09/01/24 Transmitted 06:55 Levalbuterol Hcl PHA 09/01/24 In Process (Xopenex Medneb) 12:15 Ipratropium Medneb PHA 09/01/24 In Process (Atrovent Medneb) 12:15 Med Chuckie Sub Treatment RT 09/01/24 Logged 12:14 Date of Service: Sep 01, 2024 Billing Provider: CHRISSIE THOMAS MD Common Visit Codes: [id number] INP/OBS CARE(HIGH) TESHA CARR Sep 01, 2024 15:37 CHRISSIE THOMAS MD Sep 01, 2024 23:45
[2024-09-01] MEDS ORDERED: DEXTROSE (50%) 50ML SYRG IV PRN (15:45)
[2024-09-01] MEDS: InsuLIN REG 1unit/0.01ml Soln (100units/ml) SC SCH (17:00)
[2024-09-01] MEDS: ACCU-CHEK COMFORT CURVE STRIP VI SCH (17:00)
--- NOTE | 2024-09-01 18:55 | DVHINCON2 ---
Date of service: Sep 01, [address] Lucas Reason for Consultation End-stage kidney disease History of Present Illness This is a 74-year-old male with history of end-stage kidney disease on hemodialysis, coronary artery disease status post CABG type 2 diabetes, heart failure with reduced EF presenting to the emergency room complaining of chest pain. Pain described as retrosternal in nature. Patient had a recent Cardiolite stress test done on August 24 which was positive for ischemia with moderate LV dysfunction with an EF of 38% Underwent cardiac evaluation. The patient underwent left heart catheterization today. Patient underwent PTCA and stenting with shockwave lithotripsy to the left anterior descending coronary artery. Nephrology was consulted for continuation of dialysis. His last dialysis was on . Past Medical History As stated above Past Surgical History Status post CABG Status post TURP Dialysis access placement Family History: FH: cancer G8 MOTHER FH: heart disease G8 FATHER Family History Noncontributory Social History Patient does have history of tobacco abuse. No active history of smoking, alc ohol or drug abuse Allergies: Coded Allergies: NO KNOWN ALLERGIES (Unverified , 01/05/24) Home Meds Reported Medications Azithromycin (Azithromycin) 250 Mg Tab, 1 TAB PO DAILY for 5 Days, #5 03/25/24 Tamsulosin Hcl (Tamsulosin Hcl) 0.4 Mg Cap, 2 CAP PO DAILY 01/07/24 Furosemide (Furosemide) 40 Mg Tab, 1 TAB PO DAILY 01/07/24 Ergocalciferol (Vitamin D) 50,000 Unit Cap, 1 CAP PO QWEEKLY 01/07/24 Omeprazole (Omeprazole Dr) 40 Mg Cap, 1 CAP PO DAILY 01/07/24 Aspirin (Aspirin Low Dose) 81 Mg Chw, 1 TAB PO DAILY 01/07/24 Sevelamer Carbonate (Renvela) 800 Mg Tab, 2 TAB PO TID 01/07/24 Magnesium Oxide (MAGNESIUM OXIDE) 400 Mg Tab, 1 TAB PO DAILY 01/07/24 Atorvastatin Calcium (Lipitor) 80 Mg Tab, 1 TAB PO DAILY 01/07/24 Nifedipine (Nifedipine Er) 90 Mg Tab, 1 TAB PO DAILY 01/07/24 Carvedilol (Carvedilol) 25 Mg Tab, 1 TAB PO BID 01/07/24 Oxycodone HCl (Oxycodone Hydrochloride) 15 Mg Tab, 1 TAB PO QID 01/07/24 Current Medications Current Medications Medications (Trade) Dose Ordered Sig/Edson Route PRN Reason Start Time Stop Time Status Last Admin Nitroglycerin (Ntrostat Sublingual) 0.4 mg Q5MINP PRN SL FOR CHEST PAIN 08/31/24 21:15 Morphine Sulfate 2 mg Q30M PRN IV FOR CHEST PAIN 08/31/24 21:15 09/01/24 04:11 Heparin Sodium/ Dextrose 250 ml @ 9 mls/hr Q24H IV 08/31/24 22:00 08/31/24 22:32 DC Aspirin 81 mg DAILY PO 09/01/24 10:00 09/01/24 12:47 Atorvastatin Calcium (Lipitor) 80 mg DAILY PO 08/31/24 21:15 09/01/24 12:47 Carvedilol (Coreg Tablet) 3.125 mg Q12HR PO 08/31/24 22:15 09/01/24 12:47 Heparin Sodium/ Dextrose 250 ml @ 9 mls/hr Q24H IV 08/31/24 22:30 09/01/24 13:36 DC 08/31/24 23:25 Morphine Sulfate 2 mg Q4HPRN PRN IV SEVERE PAIN (7-10 PAIN SCALE) 09/01/24 04:30 Ondansetron HCl (Zofran) 4 mg Q4HPRN PRN IV NAUSEA / VOMITING 09/01/24 04:30 Levalbuterol HCl (Xopenex Medneb) 1.25 mg Q4HP PRN NEB SHORTNESS OF BREATH 09/01/24 12:15 09/01/24 13:53 Ipratropium [place] (Atrovent Medneb) 0.5 mg Q4HPRN PRN NEB SHORTNESS OF BREATH 09/01/24 12:15 Clopidogrel Bisulfate (Plavix) 75 mg DAILY PO 09/02/24 10:00 Diagnostic Test (Pha) (Accu-Chek Comfort Curve T) 1 strip ACHS 09/01/24 17:00 Insulin Human Regular (InsuLIN R) ACHS SC 09/01/24 17:00 Dextrose 50 ml UD PRN IV Blood Sugar LESS THAN 60 09/01/24 15:45 Review of Systems 12 point review of systems negative except as stated in the HPI Vital Signs Vital Signs Date Time Temp Pulse Resp B/P (MAP) Pulse Ox O2 Delivery O2 Flow Rate FiO2 09/01/24 18:13 91 18 96 Nasal Cannula* 4 36 09/01/24 17:13 97.7 145/79 (101) 97.7 Physical Exam General Appearance: Cooperative. Diaphoretic Pulmonary/Respiratory: Diminished bilateral lower lobes Cardiovascular/Chest: Regular rate and rhythm. Peripheral Pulses: 2+ Radial (R). 2+ Radial (L). 2+ Pedal (R). 2+ Pedal (L) Abdominal Exam: Normal bowel sounds. Ankle Exam: Negative ankle edema Lower extremities: Negative lower extremity edema Neuro/Mental Status: A/OX4, coherent. Thoughts/Psych: Normal thought pattern. Appropriate mood and affect. Good judgment and insight. Appearance: No acute distress. Skin Exam: Normal inspection. Normal color. Warm and dry. Labs/Diagnostic Data Labs Test 09/01/24 13:16 09/01/24 06:20 09/01/24 06:15 08/31/24 16:55 Range/Units Sodium Level 134 L 136-145 mmol/L Potassium Level 5.3 H 3.5-5.1 mmol/L Chloride Level 93 L 98-107 mmol/L Carbon Dioxide Level 23 20-31 mmol/L Anion Gap 18 H 5-15 Blood Urea Nitrogen 117 #*H 9-23 mg/dL Creatinine 13.62 *H 0.700-1.30 mg/dL Glomerular Filtration Rate Calc 3 >90 mL/min BUN/Creatinine Ratio 8.6 L 10.0-20.0 Serum Glucose 143 H 74-106 mg/dL Calcium Level 10.4 8.7-10.4 mg/dL POC Glucose 157 H 70-106 mg/dl White Blood Count 9.6 # 4.4-10.8 10^3/uL Red Blood Count 3.77 L 4.5-5.90 10^6/uL Hemoglobin 12.1 L 13.5-17.5 g/dL Hematocrit 36.2 L 41.0-53.0 % Mean Corpuscular Volume 96.1 80.0-100.0 fL Mean Corpuscular Hemoglobin 32.2 H 28.0-32.0 pg Mean Corpuscular Hemoglobin Concent 33.5 32.0-36.0 g/dL Red Cell Distribution Width 17.6 H 11.8-14.3 % Platelet Count 213 140-450 10^3/uL Mean Platelet Volume 7.7 6.9-10.8 fL Neutrophils (%) (Auto) 77.7 37.0-80.0 % Lymphocytes (%) (Auto) 9.8 L 10.0-50.0 % Monocytes (%) (Auto) 11.3 0.0-12.0 % Eosinophils (%) (Auto) 1.0 0.0-7.0 % Basophils (%) (Auto) 0.2 0.0-2.0 % Neutrophils # (Auto) 7.5 1.6-8.6 10 ^3/uL Lymphocytes # (Auto) 0.9 0.4-5.4 10 ^3/uL Monocytes # (Auto) 1.1 0-1.3 10 ^3/uL Eosinophils # (Auto) 0.1 0-0.8 10 ^3/uL Basophils # (Auto) 0 0-0.2 10 ^3/uL Nucleated Red Blood Cells 0.2 % Prothrombin Time 12.3 H 9.3-11.8 sec Prothrombin Time INR 1.18 H 0.9-1.15 Activated Partial Thromboplast Time 97.7 *H 24.5-34.5 SEC Total Bilirubin 0.2 0.2-1.0 mg/dL Aspartate Amino Transferase (AST) 12 L 13-40 U/L Alanine Aminotransferase (ALT) 34 7-40 U/L Alkaline Phosphatase 87 46-116 U/L Troponin I High Sensitivity 776 *H </=54 ng/L Total Protein 7.7 5.7-8.2 g/dL Albumin 4.5 3.2-4.8 g/dL Triglycerides Level 62 < 150 mg/dL Cholesterol Level 81 < 200 mg/dL LDL Cholesterol 28 < 100 mg/dL HDL Cholesterol 37 L 40-59 mg/dL Thyroid Stimulating Hormone (TSH) 1.38 0.55-4.78 uIU/mL B-Type Natriuretic Peptide 3033.15 0-100 pg/mL Assessment End-stage kidney disease on hemodialysis Non ST-elevation [place] History of coronary artery disease status post CABG in 2023 Acute on chronic heart failure with reduced EF COPD Type 2 diabetes Hypertension Hyperlipidemia History of tobacco abuse Plan/Recommendation Patient underwent hemodialysis today with ultrafiltration of 3 L Patient underwent left heart catheterization today with PTCA of left anterior descending artery. Continue with aspirin, Plavix and statin. Labs in a.m. Entresto once K stabilizes updated at bedside Plan discussed with: Patient SHAREE KHANNA MD Sep 01, 2024 18:54
[2024-09-02] VITALS (11 sets, daily range): BP systolic 127–157; BP diastolic 64–82; PULSE 51–84; RESP 16–20; TEMP 36.7; O2SAT 94–98
[2024-09-02 07:11] LABS: Basophils # (auto) 0 10 ^3/uL (0-0.2); Basophils % (auto) 0.2 % (0.0-2.0); Eosinophils # (auto) 0 10 ^3/uL (0-0.8); Eosinophils % (auto) 0.2 % (0.0-7.0); Hematocrit 39.8 % (41.0-53.0); Hemoglobin 12.8 g/dL (13.5-17.5); Lymphocytes # (auto) 0.5 10 ^3/uL (0.4-5.4); Lymphocytes % (auto) 7.1 % (10.0-50.0); Mean Corpuscular Hemoglobin 30.5 pg (28.0-32.0); Mean Corpuscular Hgb Conc. 32.1 g/dL (32.0-36.0); Mean Corpuscular Volume 95.1 fL (80.0-100.0); Monocytes % (auto) 13.2 % (0.0-12.0); Neutrophils % (auto) 79.3 % (37.0-80.0); Nucleated Red Blood Cells % 0.1 %; Platelet Count (auto) 172 10^3/uL (140-450); Red Blood Cells 4.18 10^6/uL (4.5-5.90); Red Cell Distribution Width 17.5 % (11.8-14.3); White Blood Cell 7.6 10^3/uL (4.4-10.8)
[2024-09-02 07:14] LABS: Alanine Aminotransferase 26 U/L (7-40); Alkaline Phosphatase 70 U/L (46-116); Anion Gap 16 (5-15); Carbon Dioxide 26 mmol/L (20-31); Potassium 4.9 mmol/L (3.5-5.1); Sodium 137 mmol/L (136-145)
[2024-09-02 07:15] LABS: Total Protein 7.1 g/dL (5.7-8.2)
[2024-09-02 07:18] LABS: Aspartate Aminotransferase 42 U/L (13-40); Blood Urea Nitrogen 62 mg/dL (9-23); Calcium 10.5 mg/dL (8.7-10.4); Chloride 95 mmol/L (98-107); Glucose 124 mg/dL (74-106)
[2024-09-02 07:19] LABS: Bilirubin, Total 0.3 mg/dL (0.2-1.0)
[2024-09-02] MEDS: FUROSEMIDE 40 MG/4 ML VIAL IV ONE (08:33)
[2024-09-02] MEDS: CLOPIDOGREL BISULFATE 75 MG TAB PO SCH (10:58)
--- NOTE | 2024-09-02 12:58 | ECG ---
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
--- NOTE | 2024-09-02 14:23 | DVHDSRES ---
Discharge Summary Date of Admission Resident Creating Document: TESHA CARR RESIDENT Aug 31, 2024 at 21:24 Date of Discharge: Sep 02, 2024 Admitting Diagnosis ACS Labs/Diagnostic Data: Laboratory Results Test 09/02/24 14:00 09/02/24 12:31 09/02/24 06:06 09/01/24 06:15 POC Glucose 164 mg/dl (70-106) White Blood Count 7.6 10^3/uL (4.4-10.8) Red Blood Count 4.18 10^6/uL (4.5-5.90) Hemoglobin 12.8 g/dL (13.5-17.5) Hematocrit 39.8 % (41.0-53.0) Mean Corpuscular Volume 95.1 fL (80.0-100.0) Mean Corpuscular Hemoglobin 30.5 pg (28.0-32.0) Mean Corpuscular Hemoglobin Concent 32.1 g/dL (32.0-36.0) Red Cell Distribution Width 17.5 % (11.8-14.3) Platelet Count 172 10^3/uL (140-450) Mean Platelet Volume 7.4 fL (6.9-10.8) Neutrophils (%) (Auto) 79.3 % (37.0-80.0) Lymphocytes (%) (Auto) 7.1 % (10.0-50.0) Monocytes (%) (Auto) 13.2 % (0.0-12.0) Eosinophils (%) (Auto) 0.2 % (0.0-7.0) Basophils (%) (Auto) 0.2 % (0.0-2.0) Neutrophils # (Auto) 6.0 10 ^3/uL (1.6-8.6) Lymphocytes # (Auto) 0.5 10 ^3/uL (0.4-5.4) Monocytes # (Auto) 1.0 10 ^3/uL (0-1.3) Eosinophils # (Auto) 0 10 ^3/uL (0-0.8) Basophils # (Auto) 0 10 ^3/uL (0-0.2) Nucleated Red Blood Cells 0.1 % Hemoglobin A1c 6.0 % A1C (<5.7) Total Bilirubin 0.3 mg/dL (0.2-1.0) Aspartate Amino Transferase (AST) 42 U/L (13-40) Alanine Aminotransferase (ALT) 26 U/L (7-40) Alkaline Phosphatase 70 U/L (46-116) Total Protein 7.1 g/dL (5.7-8.2) Albumin 4.0 g/dL (3.2-4.8) Prothrombin Time 12.3 sec (9.3-11.8) Prothrombin Time INR 1.18 (0.9-1.15) Activated Partial Thromboplast Time 97.7 SEC (24.5-34.5) Troponin I High Sensitivity 776 ng/L (</=54) Triglycerides Level 62 mg/dL (< 150) Cholesterol Level 81 mg/dL (< 200) LDL Cholesterol 28 mg/dL (< 100) HDL Cholesterol 37 mg/dL (40-59) Thyroid Stimulating Hormone (TSH) 1.38 uIU/mL (0.55-4.78) Test 08/31/24 16:55 B-Type Natriuretic Peptide 3033.15 pg/mL (0-100) Other Laboratory Tests 09/02/24 06:06 Brief Hx & Hospital Course: This is a 74-year-old male patient with past medical history of CABG January 2024 at [facility], diabetes mellitus type 2, ESRD on hemodialysis with [facility]- Saturday//Saturday, HFrEF who presented to the ER with a complaint of chest pain. Patient reports chest pain that started on 08/30 after his roman catholic service, location was retrosternal, burning in nature intermittent and rated it 6/10. Also reports shortness of breaths on exertion, but denies palpitation/fever/chills. Denies constipation/diarrhea he also missed his dialysis session on Saturday. Patient has a stress test done earlier this month which showed positive for ischemia, LVEF 38%, inferolateral wall ischemia and infarct. January 28-patient had diffuse three-vessel disease Last echo done in March 31 showed moderately reduced systolic function, LVEF 45%. Grade 1 diastolic dysfunction. Mildly elevated RVSP 28 mmHg. Home meds: Aspirin 81 atorvastatin 80 carvedilol 25 b.i.d. vitamin-D 29524 weekly furosemide 40 daily nifedipine 90 daily omeprazole 40 daily oxycodone 50 mg daily sevelamer 2 tablets t.i.d. tamsulosin 0.8 daily EKG: sinus rhythm, LVH, pathological q waves, ST deviations in lateral leads During the hospitalization, aspirin 325 mg was ordered. Cardiology was consulted, patient Underwent urgent catheterization by Dr. Chiu with 1 MENDEZ to the LAD. EF is approximately 20-25%. Previous EF depending on TTE was 35 % in July this year. Patient was started on dual antiplatelet therapy along with the atorvastatin 80 mg daily. He underwent hemodialysis, 3 L were taken off 09/01. Patient required oxygen supplementation at 3 L, uses 2 L at home. Nebulized treatments were provided. We continued his Coreg 3.125 b.i.d.. 09/02- patient felt better, chest pain has resolved, tachypnea has resolved, no active complaint and therefore the patient is being discharged home with the recommendation to follow up as outpatient with Dr. Chiu , [employer] on 09/25/2024 at 1:[address] He was started on Entresto 15-16 mg b.i.d. on discharge. He is also advised to follow up with his primary care physician and discharge clinic appointment within 7 days. Strong recommendations were made to continue dual antiplatelet therapy for the next 1 year along with fluid restriction and low-salt diet. Patient family agreed to discharge planning. Discharge diagnosis: Coronary artery disease s/p 1 MENDEZ to the LAD Unstable angina NSTEMI type 1 History of CABG and triple-vessel disease Acute on chronic HFrEF exacerbation Acute on chronic hypoxic respiratory failure Mixed dyslipidemia Hypertension Acute on chronic hypoxic respiratory failure - on 2 L home oxygen Chronic COPD-no exacerbation Currently requiring 3 L NC ESRD on hemodialysis with [facility] - HD days Saturday//Saturday Diabetes mellitus type 2-hemoglobin A1c Anemia likely normocytic secondary to ESRD Hyperkalemia secondary to ESRD Hepatitis-C infection - Outpatient PCR for viral load Consults/Reason for consult Cardiology consulted for chest pain Operations or Procedures Operative Report - 2 Report Details Date: 09/01/24 Preop Diagnosis: CAD Postop Diagnosis: Successful PTCA and stenting with shockwave lithotripsy to the left anterior descending coronary artery. Surgeon: Charanjit Chiu MD Anesthesiologist: Conscious sedation. Anesthesia: Mac, Local (Versed and fentanyl were given for sedation. I personally monitored the patient and oversaw the administration of medication throughout the procedure..) Consent: The patient was informed of the risks and benefits of the procedure. These include but are not limited to complications of anesthesia, postoperative infection, incomplete relief of symptoms, recurrence of symptoms, damage to blood vessels, nerves and tendons, deep venous thrombosis, pulmonary embolism and possible need for repeat surgery in the future. Complications: No complications Estimated Blood Loss: 10 cc Findings: Significant stenosis of the left anterior descending coronary artery. Occluded saphenous graft to the RCA. Patent saphenous graft to the diagonal. Patent left internal mammary artery to the marginal branch. Indications for Surgery: Unstable angina. Acute coronary syndrome. Name of Procedure Performed Left heart catheterization. Bilateral cine coronary angiography. Left ventriculography. Shockwave lithotripsy therapy to the left anterior descending coronary artery. PTCA and stenting to the left anterior descending coronary artery. Visualization of saphenous venous grafts and left internal mammary artery. Procedure Details Procedure Details: Prior local anesthesia with 2% lidocaine to the right groin and full informed consent obtained. The patient was prepped and draped in usual fashion and under fluoroscopic and ultrasound guidance we placed a sheath into the right femoral artery and placed Gloria catheters to evaluate both right and left coronary ostia. The pigtail catheter was used for ventriculography. A right coronary bypass was used to evaluate for saphenous venous grafts. An internal mammary artery catheter was used to perform angiography of the internal mammary artery. A three five EBU guiding catheter was used to perform angioplasty along with a Guidezilla and wires as will be mentioned below. Hemodynamics: Aortic blood pressure was 140/80. End-diastolic pressure was 28. There was no gradient across the aortic valve on pullback. Coronary anatomy: The RCA is 100% occluded proximally. Left main is large and normal. Left anterior descending is significantly calcified in its proximal portion there is a 95% proximal stenosis. The mid and distal segments are free of significant disease. The circumflex is 100% occluded proximally. The saphenous venous graft to the RCA is occluded. The saphenous venous graft to the diagonal branch is patent. There is a small diagonal. The left internal mammary artery is anastomosed to the circumflex marginal. There was no stenosis in the marginal or the left internal mammary artery. Ventriculography: Ventriculography in the projection shows severe global hypokinesis. EF is approximately 20-25%. Angioplasty was then performed. The EBU guiding catheter was placed into the left main a Specter wire placed into the left anterior descending coronary artery. We then used a two five balloon that ruptured because of the calcium within the lesion. Subsequent to this we used a shockwave balloon but we could not get it into the actual lesion given the severe stenosis. We used a 2.5 mm noncompliant balloon and a Guidezilla to better guide the shockwave balloon into the calcified segment which was successful. We performed a series of treatments with a shockwave balloon with a 3 mm x 12 mm in length shockwave balloon. Proximally nine treatments were performed. We were then able to place a 3-0 by 18 mm stent into the proximal LAD with notable success and improvement of flow. Patient tolerated the procedure well there were no complications. FREDRICK two flow noted preprocedure. FREDRICK three flow noted postprocedure. Hydralazine was given for blood pressure. Impression successful PTCA stenting and lithotripsy of the left anterior descending coronary artery. Patent saphenous grafts to the diagonal. Patent CONKLIN to the circumflex. Occluded saphenous graft to the RCA. Decreased left ventricular ejection fraction. Elevated left ventricular end- diastolic pressure at rest. Recommendations afterload reduction and dual antiplatelet therapy to continue for patient. Dialysis to be performed on a routine basis as before. Condition Guarded Disposition 2 Still a Patient Date of Service: Sep 01, 2024 Billing Provider: CHARANJIT CHIU Sr., MD Cardiology Common Codes: 78459-VCVWPBP INP/OBS CARE (High) Cardiology Procedure Codes: 99626-JAI NONCORN ART BYPASS GTF, 58965-ZFANEO VESSEL W/I VASC FAM, 28690 -PTCA W/STENT PLACEMENT, 71663-CHIV ADD CORONARY BRANCH, 10797-EXNB ADD COR ART/BRNCH/GRFT, 63509-BGLE HEART CATH W/INTRA INJ CHARANJIT CHIU Sr., MD Sep 01, 2024 11:46 DICTATED BY:CHARANJIT CHIU Sr., MD DICTATED DATE/TIME:09/01/24 1146 ELECTRONICALLY SIGNED BY:HCARANJIT CHIU Sr., MD 09/01/24 1146 ELECTRONICALLY CO-SIGNED BY: Condition at Discharge: Guarded Final Diagnosis/Problems List Chest pain due to Coronary artery disease s/p 1 MENDEZ to the LAD Unstable angina NSTEMI type 1 History of CABG and triple-vessel disease Acute on chronic HFrEF exacerbation Acute on chronic hypoxic respiratory failure Mixed dyslipidemia Hypertension Acute on chronic hypoxic respiratory failure - on 2 L home oxygen Chronic COPD-no exacerbation Currently requiring 3 L NC ESRD on hemodialysis with [facility] - HD days Saturday//Saturday Diabetes mellitus type 2-hemoglobin A1c Anemia likely normocytic secondary to ESRD Hyperkalemia secondary to ESRD Hepatitis-C infection - Outpatient PCR for viral load Discharge Disposition: Home Discharge Instruct/Medications Diet: Cardiac 2g Na,low cholest, Renal Activity: Light activity Follow Up/Referral: Follow up with primary care physician within 7 days Follow up with the appointment with Dr. Chiu on September 25 1:[address] Follow up with discharge clinic appointment within 7 days Medications: Per EMR Discharge Statement: "Patient was advised to return to the ER or call 911 if any headaches, dizziness, shortness of breath, chest pain, abdominal pain, bleeding, fevers, or worsening of medical condition. Patient was counseled about treatment plan, medications, possible side effects, patientverbalized understanding. All questions were answered to the best of my ability. This discharge took greater then 30 minutes in planning, reviewing documentation, counseling the patient, and discussing with other team members." ASSESSMENT ASSESSMENT Assessment Coronary artery disease s/p 1 MENDEZ to the LAD Unstable angina NSTEMI type 1 History of CABG and triple-vessel disease Acute on chronic HFrEF exacerbation Acute on chronic hypoxic respiratory failure Mixed dyslipidemia Hypertension Acute on chronic hypoxic respiratory failure - on 2 L home oxygen Chronic COPD-no exacerbation ESRD on hemodialysis with [facility] Najera RESIDENT Sep 02, 2024 14:22
[2024-09-02] MEDS ORDERED: SACU1CAP2 PO (14:25)
[2024-09-02] MEDS ORDERED: CLOP75TA28 PO (14:26)
--- NOTE | 2024-09-02 14:35 | ECG ---
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
[2024-09-02 14:42] LABS: Potassium 4.6 mmol/L (3.5-5.1); Sodium 137 mmol/L (136-145)
[2024-09-02 14:43] LABS: Anion Gap 13 (5-15); Carbon Dioxide 28 mmol/L (20-31)
[2024-09-02 14:48] LABS: BUN/Creatinine Ratio 6.9 (10.0-20.0)
[2024-09-02 14:57] LABS: Blood Urea Nitrogen 74 mg/dL (9-23); Calcium 10.7 mg/dL (8.7-10.4); Chloride 96 mmol/L (98-107); Glucose 111 mg/dL (74-106)
[2024-09-02] MEDS ORDERED: SACU1TAB PO (19:53)
[2024-09-02] MEDS ORDERED: VALSARTAN 80 MG TAB PO ONE (20:00)
[2024-09-03] MEDS ORDERED: SODIUM CHL 0.9% 1000 ML BAG XX ONE (07:00)
--- NOTE | 2024-09-03 12:23 | ECG ---
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
== END 2024-09-02 20:30 | disposition home or self-care (01) | DRG 323 ==
LOC: ER 16:23 → EDBD 16:23 → OVERFLOW 21:24 → TELE-WESTW 09-01 17:13
PROVIDERS: ADMIT Student in an Organized Health Care Education/Training Program; ATTEND Student in an Organized Health Care Education/Training Program
PROC: 027034Z Dilation of Coronary Artery, One Artery with Drug-eluting Intraluminal Device, Percutaneous Approach (ICD-10-PCS; principal; 2024-09-01)
PROC: 02F03ZZ Fragmentation in Coronary Artery, One Artery, Percutaneous Approach (ICD-10-PCS; 2024-09-01)
PROC: 4A023N7 Measurement of Cardiac Sampling and Pressure, Left Heart, Percutaneous Approach (ICD-10-PCS; 2024-09-01)
PROC: B2131ZZ Fluoroscopy of Multiple Coronary Artery Bypass Grafts using Low Osmolar Contrast (ICD-10-PCS; 2024-09-01)
PROC: B2181ZZ Fluoroscopy of Left Internal Mammary Bypass Graft using Low Osmolar Contrast (ICD-10-PCS; 2024-09-01)
PROC: B2111ZZ Fluoroscopy of Multiple Coronary Arteries using Low Osmolar Contrast (ICD-10-PCS; 2024-09-01)
PROC: B2151ZZ Fluoroscopy of Left Heart using Low Osmolar Contrast (ICD-10-PCS; 2024-09-01)
PROC: 5A1D70Z Performance of Urinary Filtration, Intermittent, Less than 6 Hours Per Day (ICD-10-PCS; 2024-09-01)
DX: I21.4 Non-ST elevation (NSTEMI) myocardial infarction (principal); I50.23 Acute on chronic systolic (congestive) heart failure; N18.6 End stage renal disease; J96.21 Acute and chronic respiratory failure with hypoxia; I13.2 Hypertensive heart and chronic kidney disease with heart failure and with stage 5 chronic kidney disease, or end stage renal disease; E11.22 Type 2 diabetes mellitus with diabetic chronic kidney disease; E78.2 Mixed hyperlipidemia; D63.1 Anemia in chronic kidney disease; E87.5 Hyperkalemia; B19.20 Unspecified viral hepatitis C without hepatic coma; J44.9 Chronic obstructive pulmonary disease, unspecified; N40.0 Benign prostatic hyperplasia without lower urinary tract symptoms; I25.110 Atherosclerotic heart disease of native coronary artery with unstable angina pectoris; Z90.79 Acquired absence of other genital organ(s); Z90.5 Acquired absence of kidney; Z99.81 Dependence on supplemental oxygen; Z99.2 Dependence on renal dialysis; Z95.1 Presence of aortocoronary bypass graft; Z87.891 Personal history of nicotine dependence
CPT/HCPCS: 36415; 71045; 80048; 80053; 80061; 82962; 83036; 83880; 84443; 84484; 85025; 85610; 85730; 90935; 93005; 94640; 96365; 96375; 99152; C1887; C1894; G0378; J1815; J2405; Q9967

== ENCOUNTER → 2024-09-11 | Outpatient (CLI) | payer MEDICARE, MEDICAID ==
[~2024-09-11] MED LIST changes: -AZIT-43 PO; +CLOP75TA28 PO; -NIFE90TA75 PO; +SACU1TAB PO
[2024-09-12 08:07] LABS: PSA Free 2.16 ng/mL; Prostate Specific Antigen 5.5 ng/mL (0.0-4.0)
== END | disposition home or self-care (01) ==
LOC: LAB 11:57
PROVIDERS: ATTEND Internal Medicine
DX: N40.0 Benign prostatic hyperplasia without lower urinary tract symptoms (principal); R35.1 Nocturia; R89.9 Unspecified abnormal finding in specimens from other organs, systems and tissues
CPT/HCPCS: 84153; 84154

== ENCOUNTER 2024-10-21 16:13 | Inpatient (IN) | payer MEDICARE, MEDICAID ==
[~2024-10-21] VITALS: Ht 162.6 cm; Wt 78.1 kg
--- NOTE | 2024-10-21 16:35 | ECG ---
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
--- NOTE | 2024-10-21 16:39 | ED.PDOC ---
HPI Comments HPI: 74Y M presents to ED with chief complaint SOB x1day with intermittent chest pain. Pt states he was placed on supplemental oxygen while doing dialysis yesterday. Pt uses supplemental oxygen at home. Pt was admitted at [facility] on 08/31/2024 and discharged on 09/02/2024 with dx: Chest pain due to Coronary artery disease s/p 1 MENDEZ to the LAD, Unstable angina, NSTEMI type 1, History of CABG and triple-vessel disease, Acute on chronic HFrEF exacerbation, Acute on chronic hypoxic respiratory failure, Mixed dyslipidemia, Hypertension, Acute on chronic hypoxic respiratory failure - on 2 L home oxygen, Chronic COPD-no exacerbation, Currently requiring 3 L NC, ESRD on hemodialysis with [facility] - HD days Saturday//Saturday, Diabetes mellitus type 2-hemoglobin A1c, Anemia likely normocytic secondary to ESRD, Hyperkalemia secondary to ESRD, Hepatitis-C infection - Outpatient PCR for viral load Vitals Temperature: 97.8 Respiratory rate: 20 SpO2: 99% on 2L/min O2 Heart rate: 76 Blood pressure: 110/46 Past Medical History: DM, HTN, ESRD on HD //, CHF, COPD Past Surgical History: CABG, coronary stent Social History: +alcohol. Denies tobacco and illicit drug use. Pt quit smoking in 2023. HPI: Poor Historian. REVIEW OF SYSTEMS: CONSTITUTIONAL: Denies acute: fever, diaphoresis, chills, generalized weakness. HEAD: Denies acute: headache, photophobia Eyes: Denies acute: Double vision, vision loss, eye pain, eye discharge. EARS: Denies acute: tinnitus, hearing loss, ear discharge, ear pain, THROAT: Denies acute: sore throat, swelling, difficulty swallowing , pain with swallowing, change in voice. NECK: Denies acute: neck pain, neck swelling, stiff neck. HEART: Denies acute : palpitations, LUNGS: Denies acute: SOB, wheezing, cough, hemoptysis ABDOMEN: Denies acute: abdominal pain, Nausea, Vomiting, diarrhea, melena , hematemesis, hematochezia SKIN: Denies acute: rash, redness, lesions, itchiness. EXTREMITIES: Denies acute: calf pain, numbness, tingling, weakness, denies pain in extremity. Denies acute: Low back pain. Neuro: Denies acute: focal neurological deficit, motor or sensory focal neurological deficit, tremors, seizure like activity, confusion, dizziness, change in mental status, loss of bowel or bladder function, cauda equina like symptoms. : Denies acute: dysuria, hematuria, flank pain, increase in urinary frequency. PSYCH: Denies acute: hallucination, suicidal ideation, homicidal ideation. FEMALE: Denies acute: abnormal vaginal bleeding, foul odor, unusual discharge. PHYSICAL EXAM: General: -----mild---acute distress, awake and alert. Head: normocephalic, atraumatic. Neck: supple, trachea is midline, no swelling. Throat: Normal phonation. Eyes:, no erythema, no purulent discharge, no proptosis, no icterus. Heart: regular rate, regular rhythm, no significant murmur appreciated. Lungs: no apparent respiratory distress, Able to speak in full sentences. No wheezing, no rhonchi, no crackles. No stridors Clear to auscultation bilaterally. Abdomen: non tender to palpation, non distended, soft, no guarding, no rebound, + bowel sounds. Neuro: Awake, Alert, oriented to name, self, situation, follows commands GCS=15. Speech is normal. Skin: no petechia, no purpura, no cyanosis, non-pale, not jaundice. Lower extremities: --no - Pitting edema no deformity, no focal swelling, no calf TTP. Makes eye contact. moves all four extremities. Face: no apparent facial droop. Ambulating in the ED with a walker./cane. ED COURSE: Time Seen by MD: 16:29 Primary Care Provider: ZACARIAS Reviewed Notes: Nurses Notes, Medications, Allergies Allergies: Coded Allergies: NO KNOWN ALLERGIES (Unverified , 01/05/24) Home Meds Active Scripts Sacubitril-Valsartan (Entresto 24-26 mg) 1 Tab Tab, 1 TAB PO BID for 30 Days, #60 TAB 1 Refill Prov:TESHA CARR RESIDENT 09/02/24 Clopidogrel Bisulfate (Plavix) 75 Mg Tab, 1 TAB PO DAILY for 30 Days, #30 TAB 1 Refill Prov:ALI,TESHA RESIDENT 09/02/24 Reported Medications Tamsulosin Hcl (Tamsulosin Hcl) 0.4 Mg Cap, 2 CAP PO DAILY 01/07/24 Furosemide (Furosemide) 40 Mg Tab, 1 TAB PO DAILY 01/07/24 Ergocalciferol (Vitamin D) 50,000 Unit Cap, 1 CAP PO QWEEKLY 01/07/24 Omeprazole (Omeprazole Dr) 40 Mg Cap, 1 CAP PO DAILY 01/07/24 Aspirin (Aspirin Low Dose) 81 Mg Chw, 1 TAB PO DAILY 01/07/24 Sevelamer Carbonate (Renvela) 800 Mg Tab, 2 TAB PO TID 01/07/24 Magnesium Oxide (MAGNESIUM OXIDE) 400 Mg Tab, 1 TAB PO DAILY 01/07/24 Atorvastatin Calcium (Lipitor) 80 Mg Tab, 1 TAB PO DAILY 01/07/24 Carvedilol (Carvedilol) 25 Mg Tab, 1 TAB PO BID 01/07/24 Oxycodone HCl (Oxycodone Hydrochloride) 15 Mg Tab, 1 TAB PO QID 01/07/24 Information Source: Patient Mode of Arrival: Ambulatory Severity: Moderate Timing: Days Duration: Since onset Prehospital treatment: None Onset: At Rest Cardiac Risk Factors: HTN, Diabetes PE Risk Factors: None History of: None Modifying Factors: Nothing Associated Signs and Symptoms: SOB Past Medical History PAST MEDICAL HISTORY: CAD, CHF, COPD, DM, ESRD, HTN Surgical History: CABG, PTCA Family History Family History: Reviewed,noncontributory to illness Social History Smoker: Non-Smoker Alcohol: Occasionally Drugs: Denies Drug Use Lives In: Home Was a procedure done? Was a procedure done?: No CP Differential Dx Differential Diagnosis: N/A Differential Diagnosis: Other (DDx include ACS, unstable angina, anxiety, PE, pneumothroax, neoplasm, cardiac ischemia, COPD, asthma, CHF, pleural effusion, tobacco abuse, pneumonia, hypoxia, hypercapnia, anemia., infection/sepsis., pulmonary edema. Asthma, Cardiac tamponade, infection.) X-Ray, Labs, Meds, VS Vital Signs Date Time Temp Pulse Resp B/P (MAP) Pulse Ox O2 Delivery O2 Flow Rate FiO2 10/21/24 18:38 98.5 79 18 102/45 (64) 98 98.5 10/21/24 16:34 72 10/21/24 16:33 97.8 76 20 110/46 (67) 97 97.8 Lab Test 10/21/24 17:39 10/21/24 16:43 10/21/24 16:38 Range/Units Troponin I High Sensitivity 222 *H 214 *H </=54 ng/L White Blood Count 5.0 4.4-10.8 10^3/uL Red Blood Count 2.35 L 4.5-5.90 10^6/uL Hemoglobin 7.6 L 13.5-17.5 g/dL Hematocrit 23.0 L 41.0-53.0 % Mean Corpuscular Volume 97.6 80.0-100.0 fL Mean Corpuscular Hemoglobin 32.3 H 28.0-32.0 pg Mean Corpuscular Hemoglobin Concent 33.1 32.0-36.0 g/dL Red Cell Distribution Width 17.8 H 11.8-14.3 % Platelet Count 225 140-450 10^3/uL Mean Platelet Volume 6.7 L 6.9-10.8 fL Neutrophils (%) (Auto) 65.8 37.0-80.0 % Lymphocytes (%) (Auto) 16.3 10.0-50.0 % Monocytes (%) (Auto) 14.9 H 0.0-12.0 % Eosinophils (%) (Auto) 2.6 0.0-7.0 % Basophils (%) (Auto) 0.4 0.0-2.0 % Neutrophils # (Auto) 3.3 1.6-8.6 10 ^3/uL Lymphocytes # (Auto) 0.8 0.4-5.4 10 ^3/uL Monocytes # (Auto) 0.8 0-1.3 10 ^3/uL Eosinophils # (Auto) 0.1 0-0.8 10 ^3/uL Basophils # (Auto) 0 0-0.2 10 ^3/uL Nucleated Red Blood Cells 0.1 % Sodium Level 136 136-145 mmol/L Potassium Level 5.1 3.5-5.1 mmol/L Chloride Level 94 L 98-107 mmol/L Carbon Dioxide Level 33 H 20-31 mmol/L Anion Gap 9 5-15 Blood Urea Nitrogen 61 H 9-23 mg/dL Creatinine 7.68 H 0.700-1.30 mg/dL Glomerular Filtration Rate Calc 7 >90 mL/min BUN/Creatinine Ratio 7.9 L 10.0-20.0 Serum Glucose 71 L 74-106 mg/dL Lactic Acid Level 1.1 0.4-2.0 mmol/L Calcium Level 10.5 H 8.7-10.4 mg/dL Magnesium Level 3.3 H 1.6-2.6 mg/dL Total Bilirubin 0.3 0.2-1.0 mg/dL Aspartate Amino Transferase (AST) 19 13-40 U/L Alanine Aminotransferase (ALT) 33 7-40 U/L Alkaline Phosphatase 130 H 46-116 U/L B-Type Natriuretic Peptide > 5000.00 0-100 pg/mL Total Protein 7.1 5.7-8.2 g/dL Albumin 3.9 3.2-4.8 g/dL POC Glucose 74 70-106 mg/dl Current Medications Medications (Trade) Dose Ordered Sig/Edson Route Start Time Stop Time Status Last Admin Furosemide (Lasix Injection) 40 mg ONCE ONCE IV 10/21/24 19:15 10/21/24 20:04 DC 10/21/24 21:21 [place] [id number] Ph: [phone] DIAGNOSTIC IMAGING Diagnostic Imaging Report : [id number] Signed PATIENT: MAXIMUS MAR JR ACCT: [id number] UNIT: [id number] : 1950 LOC: ER ROOM / BED: / AGE / SEX: 74 / M ADM STATUS: REG ER SERVICE 1626 ORDERING PHYSICIAN: KENNETH PARNELL DO PROCEDURE(s): CXRP - CHEST PORTABLE REASON: sob ORDER NUMBER(s): [id number], ACCESSION NUMBER(s): [id number] CHEST RADIOGRAPH Indication: sob Technique: Single frontal view of the chest was obtained COMPARISON: XY CHEST PORTABLE on DOS: 08/31/24, XY CHEST XRAY 1 VIEW on DOS: 03/24/24, XY CHEST PORTABLE on DOS: 01/07/24, XY CHEST PORTABLE on DOS: 01/05/24 FINDINGS: Lines and Tubes: Median sternotomy. Lungs: Clear Pleura: Small left pleural effusion No pneumothorax. Cardiomediastinal contours: Unremarkable Bones: Unremarkable IMPRESSION: Small left pleural effusion ATED BY: DEREK SHOEMAKER MD DICTATED DATE/TIME: 10/21/241718 SIGNED BY: DEREK SHOEMAKER MD SIGNED DATE/TIME: 10/21/241718 CC: Time of 1ST Reevaluation: 16:59 Reevaluation 1ST: Unchanged Patient Education/Counseling: Diagnosis, Treatment Family Education/Counseling: No Family Present Comments Patient presented with the above HPI.---dyspnea---workup was initiated. patient was found with the above mentioned diagnosis. the following medications were ordered: please refer to order lists of meds and tests obtained by myself Dr. Parnell. Patient ED course and VS have been stabilized. Patient has been reassessed in the ED and remained in a stable condition. Pertinent incidental findings were discussed with the patient and/or family. Patient/family voices understanding and is agreeable with plan. Patient has been observed in the ED adequate length of time to insure improvement/stability. Escalation of care considered: Consideration of escalation to observation or admission Patient was ADMITTED to the medicine team for further evaluation and treatment of their presentation. All the reports of any imaging studies that were ordered by myself were reviewed by myself. Departure 1 Departure Time of Disposition: 17:13 Impression: Primary Impression: Chest pain Additional Impressions: End-stage renal disease on hemodialysis Elevated troponin Anemia Disposition: ADMITTED INPATIENT Admit to: [facility] Condition: Guarded Additional Instructions: [place] [id number] Ph: [phone] DIAGNOSTIC IMAGING Diagnostic Imaging Report : [id number] Signed PATIENT: MAXIMUS MAR JR ACCT: [id number] UNIT: [id number] : 1950 LOC: ER ROOM / BED: / AGE / SEX: 74 / M ADM STATUS: REG ER SERVICE 25 ORDERING PHYSICIAN: KENNETH PARNELL DO PROCEDURE(s): CXRP - CHEST PORTABLE REASON: sob ORDER NUMBER(s): [id number], ACCESSION NUMBER(s): [id number] CHEST RADIOGRAPH Indication: sob Technique: Single frontal view of the chest was obtained COMPARISON: XY CHEST PORTABLE on DOS: 08/31/24, XY CHEST XRAY 1 VIEW on DOS: 03/24/24, XY CHEST PORTABLE on DOS: 01/07/24, XY CHEST PORTABLE on DOS: 01/05/24 FINDINGS: Lines and Tubes: Median sternotomy. Lungs: Clear Pleura: Small left pleural effusion No pneumothorax. Cardiomediastinal contours: Unremarkable Bones: Unremarkable IMPRESSION: Small left pleural effusion ATED BY: DEREK SHOEMAKER MD DICTATED DATE/TIME: 10/21/241718 SIGNED BY: DEREK SHOEMAKER MD SIGNED DATE/TIME: 10/21/241718 CC: Discharged With: Self Critical Care Note Critical Care Time?: Yes (45 min-critical care time only) Heart Score Heart Score: Heart Score Response (Comments) Value History Slightly Suspicious 0 EKG Normal 0 Age >65 2 Risk Factors >3 or Hx ASHD 2 Troponin >3 x's Normal limit 2 Total 6 I personally scribed for KENNETH PARNELL DO ([email or web address]) on 10/21/24 at 16:39. Electronically submitted by Magali Leach ([employer]). I personally scribed for KENNETH PARNELL DO ([email or web address]) on 10/21/24 at 17:40. Electronically submitted by Magali Leach ([employer]). I personally scribed for KENNETH PARNELL DO ([email or web address]) on 10/21/24 at 19:47. Electronically submitted by Diana Blanca ([email or web address]). KENNETH PARNELL DO Oct 21, 2024 16:39
[2024-10-21 16:53] LABS: Basophils # (auto) 0 10 ^3/uL (0-0.2); Basophils % (auto) 0.4 % (0.0-2.0); Eosinophils # (auto) 0.1 10 ^3/uL (0-0.8); Eosinophils % (auto) 2.6 % (0.0-7.0); Hemoglobin 7.6 g/dL (13.5-17.5); Lymphocytes # (auto) 0.8 10 ^3/uL (0.4-5.4); Lymphocytes % (auto) 16.3 % (10.0-50.0); Mean Corpuscular Hemoglobin 32.3 pg (28.0-32.0); Mean Corpuscular Hgb Conc. 33.1 g/dL (32.0-36.0); Mean Corpuscular Volume 97.6 fL (80.0-100.0); Monocytes # (auto) 0.8 10 ^3/uL (0-1.3); Monocytes % (auto) 14.9 % (0.0-12.0); Neutrophils # (auto) 3.3 10 ^3/uL (1.6-8.6); Neutrophils % (auto) 65.8 % (37.0-80.0); Nucleated Red Blood Cells % 0.1 %; Platelet Count (auto) 225 10^3/uL (140-450); Red Blood Cells 2.35 10^6/uL (4.5-5.90); Red Cell Distribution Width 17.8 % (11.8-14.3)
[2024-10-21 17:10] LABS: Alanine Aminotransferase 33 U/L (7-40); Albumin 3.9 g/dL (3.2-4.8); Anion Gap 9 (5-15); Aspartate Aminotransferase 19 U/L (13-40); BUN/Creatinine Ratio 7.9 (10.0-20.0); Sodium 136 mmol/L (136-145); Total Protein 7.1 g/dL (5.7-8.2)
[2024-10-21 17:11] LABS: Alkaline Phosphatase 130 U/L (46-116); Bilirubin, Total 0.3 mg/dL (0.2-1.0); Blood Urea Nitrogen 61 mg/dL (9-23); Calcium 10.5 mg/dL (8.7-10.4); Carbon Dioxide 33 mmol/L (20-31); Chloride 94 mmol/L (98-107); Glucose 71 mg/dL (74-106); Magnesium 3.3 mg/dL (1.6-2.6); Potassium 5.1 mmol/L (3.5-5.1)
--- NOTE | 2024-10-21 17:21 | DVH ---
CHEST RADIOGRAPH Indication: sob Technique: Single frontal view of the chest was obtained COMPARISON: XY CHEST PORTABLE on DOS: 08/31/24, XY CHEST XRAY 1 VIEW on DOS: 03/24/24, XY CHEST PORTABL E on DOS: 01/07/24, XY CHEST PORTABLE on DOS: 01/05/24 FINDINGS: Lines and Tubes: Median sternotomy. Lungs: Clear Pleura: Small left pleural effusion No pneumothorax. Cardiomediastinal contours: Unremarkable Bones: Unremarkable IMPRESSION: Small left pleural effusion
[2024-10-21] MEDS ORDERED: DEXTROSE (50%) 50ML SYRG IV PRN (20:00)
[2024-10-21] MEDS ORDERED: MORPHINE SULFATE INJ 2 MG/ml SYRG IV PRN (20:00)
[2024-10-21] MEDS ORDERED: IPRATROPIUM BROM 0.5 MG/2.5ML INH SOL NEB PRN (20:00)
[2024-10-21] MEDS ORDERED: NITROGLYCERIN 0.4 MG SL TAB SL PRN (20:00)
[2024-10-21] MEDS ORDERED: ACETAMINOPHEN 325 MG TAB PO PRN (20:00)
[2024-10-21] MEDS ORDERED: ALBUTEROL SULF 2.5 MG/0.5ML(0.5%) NEB SOLN NEB PRN (20:00)
[2024-10-21] MEDS ORDERED: ONDANSETRON HCL 4 MG/2 ML VIAL IV PRN (20:00)
[2024-10-21 20:48] VITALS: PULSE 80; RESP 20; O2SAT 93
[2024-10-21] MEDS: FUROSEMIDE 40 MG/4 ML VIAL IV ONE (21:21)
[2024-10-21 21:37] VITALS: O2SAT 100
[2024-10-21 21:40] VITALS: BP 122/55; PULSE 77; RESP 18; TEMP 97.8; O2SAT 100
--- NOTE | 2024-10-21 21:45 | DVHHP2 ---
History of Present Illness Reason for Visit: Shortness for breath History of Present Illness 74-year-old male presents for evaluation of shortness for breath. Patient reports a one day history of shortness for breath with associated substernal chest pressure. He reports having dialysis yesterday in which they removed 2 L of fluid. Denies nausea or vomiting. He uses 2 L of nasal cannula oxygen and today had to increase it to 3 L. Past Medical History End-stage renal disease, hypertension, CHF, COPD Past Surgical History Dialysis access CABG Family History Noncontributory Smoke: Quit Drugs: None Lives: with Family Review of Systems Review of Systems Review of systems are currently negative otherwise addressed in HPI. Allergies: Coded Allergies: NO KNOWN ALLERGIES (Unverified , 01/05/24) Medications Current Medications Medications Dose Ordered Sig/Edson Route Start Time Stop Time Status Last Admin Dose Admin Nitroglycerin 0.4 mg Q5MINP PRN SL 10/21/24 20:00 Morphine Sulfate 2 mg Q30M PRN IV 10/21/24 20:00 Clopidogrel Bisulfate 75 mg DAILY PO 10/22/24 10:00 Sevelamer HCl 800 mg TIDWM PO 10/22/24 08:00 Aspirin 81 mg DAILY PO 10/22/24 10:00 Atorvastatin Calcium 80 mg HS PO 10/21/24 22:00 Furosemide 40 mg DAILY PO 10/22/24 10:00 Albuterol 2.5 mg Q6HPRN PRN NEB 10/21/24 20:00 Ipratropium [place] 0.5 mg Q6HPRN PRN NEB 10/21/24 20:00 Diagnostic Test (Pha) 1 strip Q6HR 10/22/24 00:00 Insulin Human Regular Q6HR SC 10/22/24 00:00 Dextrose 50 ml UD PRN IV 10/21/24 20:00 Ondansetron HCl 4 mg Q4HP PRN IV 10/21/24 20:00 Acetaminophen 650 mg Q6HP PRN PO 10/21/24 20:00 Exam Vital Signs Vital Signs Date Time Temp Pulse Resp B/P (MAP) Pulse Ox O2 Delivery O2 Flow Rate FiO2 10/21/24 21:21 122/55 10/21/24 20:54 97.8 80 20 96 97.8 10/21/24 20:54 Nasal Cannula 3.0 10/21/24 20:48 32 Exam Gen: 74-year-old male in mild distress. Skin: Warm, dry, normal color and texture, no rash. HEENT: Normocephalic atraumatic, mucous membranes moist and pink. Neck: Cervical and supraclavicular nodes normal without enlargement, trachea is midline, thyroid gland is normal without masses. Pulmonary: Clear to auscultation and percussion bilaterally. Cardiac: Regular rate and rhythm. No murmur Abdomen: Soft, nontender, nondistended, bowel sounds present all 4 quadrants, no guarding, no rigidity, no organomegaly. Extremities: No cyanosis, clubbing, no edema Neuro: Cranial nerves II through XII grossly intact, normal affect and speech, no focal motor deficits. Labs/Xrays ORDERING PHYSICIAN: KENNETH PARNELL DO PROCEDURE(s): CXRP - CHEST PORTABLE REASON: sob ORDER NUMBER(s): [id number], ACCESSION NUMBER(s): [id number] CHEST RADIOGRAPH Indication: sob Technique: Single frontal view of the chest was obtained COMPARISON: XY CHEST PORTABLE on DOS: 08/31/24, XY CHEST XRAY 1 VIEW on DOS: 03/24/24, XY CHEST PORTABLE on DOS: 01/07/24, XY CHEST PORTABLE on DOS: 01/05/24 FINDINGS: Lines and Tubes: Median sternotomy. Lungs: Clear Pleura: Small left pleural effusion No pneumothorax. Cardiomediastinal contours: Unremarkable Bones: Unremarkable IMPRESSION: Small left pleural effusion Labs Test 10/21/24 19:53 10/21/24 16:43 10/21/24 16:38 Range/Units Troponin I High Sensitivity 208 *H </=54 ng/L White Blood Count 5.0 4.4-10.8 10^3/uL Red Blood Count 2.35 L 4.5-5.90 10^6/uL Hemoglobin 7.6 L 13.5-17.5 g/dL Hematocrit 23.0 L 41.0-53.0 % Mean Corpuscular Volume 97.6 80.0-100.0 fL Mean Corpuscular Hemoglobin 32.3 H 28.0-32.0 pg Mean Corpuscular Hemoglobin Concent 33.1 32.0-36.0 g/dL Red Cell Distribution Width 17.8 H 11.8-14.3 % Platelet Count 225 140-450 10^3/uL Mean Platelet Volume 6.7 L 6.9-10.8 fL Neutrophils (%) (Auto) 65.8 37.0-80.0 % Lymphocytes (%) (Auto) 16.3 10.0-50.0 % Monocytes (%) (Auto) 14.9 H 0.0-12.0 % Eosinophils (%) (Auto) 2.6 0.0-7.0 % Basophils (%) (Auto) 0.4 0.0-2.0 % Neutrophils # (Auto) 3.3 1.6-8.6 10 ^3/uL Lymphocytes # (Auto) 0.8 0.4-5.4 10 ^3/uL Monocytes # (Auto) 0.8 0-1.3 10 ^3/uL Eosinophils # (Auto) 0.1 0-0.8 10 ^3/uL Basophils # (Auto) 0 0-0.2 10 ^3/uL Nucleated Red Blood Cells 0.1 % Sodium Level 136 136-145 mmol/L Potassium Level 5.1 3.5-5.1 mmol/L Chloride Level 94 L 98-107 mmol/L Carbon Dioxide Level 33 H 20-31 mmol/L Anion Gap 9 5-15 Blood Urea Nitrogen 61 H 9-23 mg/dL Creatinine 7.68 H 0.700-1.30 mg/dL Glomerular Filtration Rate Calc 7 >90 mL/min BUN/Creatinine Ratio 7.9 L 10.0-20.0 Serum Glucose 71 L 74-106 mg/dL Lactic Acid Level 1.1 0.4-2.0 mmol/L Calcium Level 10.5 H 8.7-10.4 mg/dL Magnesium Level 3.3 H 1.6-2.6 mg/dL Total Bilirubin 0.3 0.2-1.0 mg/dL Aspartate Amino Transferase (AST) 19 13-40 U/L Alanine Aminotransferase (ALT) 33 7-40 U/L Alkaline Phosphatase 130 H 46-116 U/L B-Type Natriuretic Peptide > 5000.00 0-100 pg/mL Total Protein 7.1 5.7-8.2 g/dL Albumin 3.9 3.2-4.8 g/dL POC Glucose 74 70-106 mg/dl Assessment/Plan Assessment/Plan Assessment Acute on chronic respiratory failure Elevated troponin End-stage renal disease, dialysis dependent COPD Anemia of chronic disease History of CABG Hypotension Plan Admit the patient to telemetry to the hospitalist Nephrology consultation Cardiology consult Resume home medications Hold antihypertensives reassess in the morning Continue treatment per orders. Plan discussed with: Patient My Orders Orders - CRAIG ROOT AGACNP Procedure Category Date Status Time Admit ADMIT 10/21/24 Transmitted 19:49 Nitroglycerin PHA 10/21/24 In Process Sublingual (Ntrostat 20:00 Morphine Sulfate PHA 10/21/24 In Process Injection 20:00 Stat Ekg For Chest RADHA 10/21/24 In Process Pain 19:49 Notify Of Changes RADHA 10/21/24 In Process From Base 19:49 Database Reporting Consultant For RADHA 10/21/24 In Process 24 Hours 19:49 Emergency Dysrhythmia RADHA 10/21/24 In Process Protocol 19:49 Rhythm Strips Once RADHA 10/21/24 In Process Every Shift 19:49 Oxygen By Nasal RT 10/21/24 Transmitted Cannula 19:49 Clopidogrel Bisulfate PHA 10/22/24 In Process (Plavix) 10:00 Sevelamer (Renagel) PHA 10/22/24 In Process 08:00 Aspirin Tablet PHA 10/22/24 In Process 10:00 Atorvastatin (Lipitor) PHA 10/21/24 In Process 22:00 Furosemide Tablet PHA 10/22/24 In Process (Lasix Tablet) 10:00 Albuterol Medneb PHA 10/21/24 In Process (Ventolin Medneb) 20:00 Ipratropium Medneb PHA 10/21/24 In Process (Atrovent Medneb) 20:00 * Cardiology Consult CONS 10/21/24 Transmitted 19:53 Glucose Blood PHA 10/22/24 In Process (Accu-Chek Comfort 00:00 Insulin R (Human) PHA 10/22/24 In Process (Insulin R) 00:00 Dextrose 50% Syringe PHA 10/21/24 In Process 20:00 Renal DIET 10/22/24 Transmitted Standard(2gna,3gk,Lopho) Breakfast Ondansetron Hcl PHA 10/21/24 In Process (Zofran) 20:00 Condition: Fair RADHA 10/21/24 In Process 19:53 Acetaminophen Tablet PHA 10/21/24 In Process (Tylenol Tablet) 20:00 Bedrest With Bathroom RADHA 10/21/24 In Process Privileg 19:53 Date of Service: Oct 21, 2024 Billing Provider: CRAIG ROOT Common Visit Codes: [id number] INP/OBS CARE (HIGH) CRAIG ROOT Oct 21, 2024 21:45
[2024-10-21] MEDS: ATORVASTATIN 20 MG TAB PO SCH (22:56)
[2024-10-21] MEDS: ACCU-CHEK COMFORT CURVE STRIP VI SCH (23:59)
[2024-10-22] VITALS (13 sets, daily range): BP systolic 140–157; BP diastolic 67–80; PULSE 82–118; RESP 17–22; TEMP 97.8–98.4; O2SAT 98–100
[2024-10-22] MEDS: InsuLIN REG 1unit/0.01ml Soln (100units/ml) SC SCH (00:10)
--- NOTE | 2024-10-22 02:04 | ECG ---
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
[2024-10-22] MEDS: SEVELAMER 800 MG TAB PO SCH (07:57)
[2024-10-22] MEDS: ASPirin 81 mg TAB PO SCH (09:35)
[2024-10-22] MEDS: CLOPIDOGREL BISULFATE 75 MG TAB PO SCH (09:35)
[2024-10-22] MEDS: FUROSEMIDE 40 MG TAB PO SCH (09:41)
[2024-10-22 12:05] LABS: Urine Bacteria FEW /hpf (None Seen); Urine Blood Negative /uL (Negative); Urine Clarity Clear (Clear); Urine Color Light-Yellow (Yellow); Urine Protein, UAD 2+ (Negative); Urine Specific Gravity 1.011 (1.001-1.035); Urine Squamous Epithelial Cell FEW /hpf (<5); Urine Urobilinogen Normal (Negative); Urine WBC 39 /HPF (0-3)
--- NOTE | 2024-10-22 13:02 | DVHINCON2 ---
Date Seen: Oct 22, 2024 Referring Physician CORTNEY Reynoso Reason for Consultation Elevated troponin History of Present Illness This is a 74-year-old male patient who presents to the emergency room with chief complaint of chest pain and shortness of breath for three days. He describes the chest pain as unprovoked, intermittent, sharp in nature, midsternal and nonradiating. Associated symptoms include shortness of breath. The patient decided to come to the emergency room for further evaluation. Initial twelve lead electrocardiogram reveals normal sinus rhythm with nonspecific ST segment changes to lateral leads. Initial troponin level of 214ng/L with flat trend thereafter. Significant medical history includes severe coronary artery disease status post triple-vessel CABG on ASA therapy(01/2024), congestive heart failure, hypertension, dyslipidemia, COPD on home oxygen, end-stage renal disease on hemodialysis, type 2 diabetes mellitus, previous tobacco use and benign prostatic hyperplasia. 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 The patient was recently seen at this facility and underwent a coronary angiogram with left heart catheterization with successful PTCA stenting and lithotripsy of the left anterior descending coronary artery on 09/01/2024. He reports medical compliance with his dual antiplatelet therapy. Past Medical History Past medical history reviewed. No other significant than mentioned above. Past Surgical History Triple-vessel CABG (01/2024) at [facility] Family History: FH: cancer G8 MOTHER FH: heart disease G8 FATHER Family History Family history reviewed. Social History Patient has a seven pack-year history, quit smoking approximately one year ago Denies any illicit drug use Denies any alcohol use Allergies: Coded Allergies: NO KNOWN ALLERGIES (Unverified , 01/05/24) Home Meds Active Scripts Sacubitril-Valsartan (Entresto 24-26 mg) 1 Tab Tab, 1 TAB PO BID for 30 Days, #60 TAB 1 Refill Prov:TESHA CARR RESIDENT 09/02/24 Clopidogrel Bisulfate (Plavix) 75 Mg Tab, 1 TAB PO DAILY for 30 Days, #30 TAB 1 Refill Prov:TESHA CARR RESIDENT 09/02/24 Reported Medications Furosemide (Furosemide) 40 Mg Tab, 1 TAB PO DAILY 01/07/24 Ergocalciferol (Vitamin D) 50,000 Unit Cap, 1 CAP PO QWEEKLY 01/07/24 Omeprazole (Omeprazole Dr) 40 Mg Cap, 1 CAP PO DAILY 01/07/24 Aspirin (Aspirin Low Dose) 81 Mg Chw, 1 TAB PO DAILY 01/07/24 Sevelamer Carbonate (Renvela) 800 Mg Tab, 2 TAB PO TID 01/07/24 Atorvastatin Calcium (Lipitor) 80 Mg Tab, 1 TAB PO DAILY 01/07/24 Carvedilol (Carvedilol) 25 Mg Tab, 1 TAB PO BID 01/07/24 Oxycodone HCl (Oxycodone Hydrochloride) 15 Mg Tab, 1 TAB PO QID 01/07/24 Discontinued Reported Medications Tamsulosin Hcl (Tamsulosin Hcl) 0.4 Mg Cap, 2 CAP PO DAILY 01/07/24 Magnesium Oxide (MAGNESIUM OXIDE) 400 Mg Tab, 1 TAB PO DAILY 01/07/24 Home Meds Home medications reviewed. Current Medications Current Medications Medications (Trade) Dose Ordered Sig/Edson Route PRN Reason Start Time Stop Time Status Last Admin Nitroglycerin (Ntrostat Sublingual) 0.4 mg Q5MINP PRN SL FOR CHEST PAIN 10/21/24 20:00 Morphine Sulfate 2 mg Q30M PRN IV FOR CHEST PAIN 10/21/24 20:00 Clopidogrel Bisulfate (Plavix) 75 mg DAILY PO 10/22/24 10:00 10/22/24 09:35 Sevelamer HCl (Renagel) 800 mg TIDWM PO 10/22/24 08:00 10/22/24 11:56 Aspirin 81 mg DAILY PO 10/22/24 10:00 10/22/24 09:35 Atorvastatin Calcium (Lipitor) 80 mg HS PO 10/21/24 22:00 10/21/24 22:56 Furosemide (Lasix Tablet) 40 mg DAILY PO 10/22/24 10:00 10/22/24 09:41 Albuterol (Ventolin Medneb) 2.5 mg Q6HPRN PRN NEB SHORTNESS OF BREATH 10/21/24 20:00 Ipratropium [place] (Atrovent Medneb) 0.5 mg Q6HPRN PRN NEB SHORTNESS OF BREATH 10/21/24 20:00 Diagnostic Test (Pha) (Accu-Chek Comfort Curve T) 1 strip Q6HR 10/22/24 00:00 10/22/24 11:58 Insulin Human Regular (InsuLIN R) Q6HR SC 10/22/24 00:00 10/22/24 05:57 Dextrose 50 ml UD PRN IV Blood Sugar LESS THAN 60 10/21/24 20:00 Ondansetron HCl (Zofran) 4 mg Q4HP PRN IV NAUSEA / VOMITING 10/21/24 20:00 Acetaminophen (Tylenol Tablet) 650 mg Q6HP PRN PO PAIN SCALE 1-3 OR TEMP>100.4 10/21/24 20:00 Review of Systems Constitutional: No symptom reported Ears, Nose, & Throat: No symptom reported Eyes: No symptom reported Neurological: No symptoms reported Pulmonary/Respiratory: Shortness of breath Cardiovascular: Chest pain Gastrointestinal: No symptom reported Genitourinary: No symptom reported Musculoskeletal: No symptom reported Skin: No symptom reported Psychiatric: No symptom reported Endocrine: No symptom reported Hematologic/Lymphatic: No symptom reported Vital Signs Vital Signs Date Time Temp Pulse Resp B/P (MAP) Pulse Ox O2 Delivery O2 Flow Rate FiO2 10/22/24 10:00 100 Nasal Cannula* 3 32 10/22/24 09:41 140/68 10/22/24 08:30 98.0 88 18 98.0 Physical Exam General Appearance: Cooperative. Well-developed. Well-nourished. No acute distress. Pulmonary/Respiratory: Clear, bilateral breaths sounds. Cardiovascular/Chest: Regular rate and rhythm. Peripheral Pulses: 2+ Radial (R). 2+ Radial (L). 2+ Pedal (R). 2+ Pedal (L) Abdominal Exam: Normal bowel sounds. Ankle Exam: Negative ankle edema Lower extremities: Negative lower extremity edema Neuro/Mental Status: A/OX4, coherent. Thoughts/Psych: Normal thought pattern. Appropriate mood and affect. Good judgment and insight. Appearance: No acute distress. Skin Exam: Normal inspection. Normal color. Warm and dry. Labs/Diagnostic Data Labs Test 10/22/24 11:54 10/22/24 11:25 10/21/24 19:53 10/21/24 16:43 Range/Units POC Glucose 104 70-106 mg/dl Urine Color Light-yellow Yellow Urine Clarity Clear Clear Urine pH 8.0 5.0-9.0 Urine Specific [place] 1.011 1.001-1.035 Urine Protein 2+ H Negative Urine Ketones Negative Negative Urine Blood Negative Negative /uL Urine Nitrite Negative Negative Urine Bilirubin Negative Negative Urine Urobilinogen Normal Negative mg/dL Urine Leukocyte Esterase 1+ Negative /uL Urine RBC 3 0 - 3 /hpf Urine Microscopic WBC 39 H 0-3 /HPF Urine Squamous Epithelial Cells Few <5 /hpf Urine Bacteria Few H None Seen /hpf Urine Glucose 2+ H Normal mg/dL Troponin I High Sensitivity 208 *H </=54 ng/L White Blood Count 5.0 4.4-10.8 10^3/uL Red Blood Count 2.35 L 4.5-5.90 10^6/uL Hemoglobin 7.6 L 13.5-17.5 g/dL Hematocrit 23.0 L 41.0-53.0 % Mean Corpuscular Volume 97.6 80.0-100.0 fL Mean Corpuscular Hemoglobin 32.3 H 28.0-32.0 pg Mean Corpuscular Hemoglobin Concent 33.1 32.0-36.0 g/dL Red Cell Distribution Width 17.8 H 11.8-14.3 % Platelet Count 225 140-450 10^3/uL Mean Platelet Volume 6.7 L 6.9-10.8 fL Neutrophils (%) (Auto) 65.8 37.0-80.0 % Lymphocytes (%) (Auto) 16.3 10.0-50.0 % Monocytes (%) (Auto) 14.9 H 0.0-12.0 % Eosinophils (%) (Auto) 2.6 0.0-7.0 % Basophils (%) (Auto) 0.4 0.0-2.0 % Neutrophils # (Auto) 3.3 1.6-8.6 10 ^3/uL Lymphocytes # (Auto) 0.8 0.4-5.4 10 ^3/uL Monocytes # (Auto) 0.8 0-1.3 10 ^3/uL Eosinophils # (Auto) 0.1 0-0.8 10 ^3/uL Basophils # (Auto) 0 0-0.2 10 ^3/uL Nucleated Red Blood Cells 0.1 % Sodium Level 136 136-145 mmol/L Potassium Level 5.1 3.5-5.1 mmol/L Chloride Level 94 L 98-107 mmol/L Carbon Dioxide Level 33 H 20-31 mmol/L Anion Gap 9 5-15 Blood Urea Nitrogen 61 H 9-23 mg/dL Creatinine 7.68 H 0.700-1.30 mg/dL Glomerular Filtration Rate Calc 7 >90 mL/min BUN/Creatinine Ratio 7.9 L 10.0-20.0 Serum Glucose 71 L 74-106 mg/dL Lactic Acid Level 1.1 0.4-2.0 mmol/L Calcium Level 10.5 H 8.7-10.4 mg/dL Magnesium Level 3.3 H 1.6-2.6 mg/dL Total Bilirubin 0.3 0.2-1.0 mg/dL Aspartate Amino Transferase (AST) 19 13-40 U/L Alanine Aminotransferase (ALT) 33 7-40 U/L Alkaline Phosphatase 130 H 46-116 U/L B-Type Natriuretic Peptide > 5000.00 0-100 pg/mL Total Protein 7.1 5.7-8.2 g/dL Albumin 3.9 3.2-4.8 g/dL Assessment Chest pain, rule out progressive coronary artery disease and/or in-stent restenosis/thrombosis NSTEMI Severe coronary artery disease status post triple-vessel CABG and 1 MENDEZ (on ASA and Plavix) Acute on chronic decompensated HFrEF, NYHA class III Hypertension Dyslipidemia COPD with home oxygen dependence End-stage renal disease on hemodialysis Acute on chronic anemia Type 2 diabetes mellitus History of tobacco use Plan/Recommendation We will continue with the following plan/recommendations (Dr. Cardona): * Transthoracic echocardiogram from 07/23/24 reveals EF 35-40% * Initiate guideline directed medical therapy for CHF as renal function permits * Intake and output, daily weights, maintain fluid restriction * Chest pain protocol * HEART score: 8 points (high score) * FREDRICK score: 5 points * Continue dual antiplatelet therapy and lipid-lowering agent * Cardiac surveillance Case discussed with . With the patient's clinical presentation, elevated troponin level, twelve lead electrocardiogram findings and comorbidities, we will recommend for the patient to undergo a coronary angiogram with left heart catheterization. The procedure was discussed with the patient in full detail including risks and benefits. Risks include but are not limited to bleeding, contrast-induced nephropathy, stroke, and even . The patient understands and is agreeable to undergo the procedure. We will schedule the patient at soonest availability on 10/23/24. Thank you for allowing us to care for this patient. Please call with any questions or concerns. Critical care time spent: 44 minutes This medical document was created using an electronic medical record system with voice recognition software and computerized dictation system. Although this document has been carefully reviewed, there might still be some phonetic and typographical errors. Occasional wrong-word or ``sound-alike substitutions may have occurred due to the inherent limitations of voice recognition software. These areas are purely typographical due to imperfections of the software programs and do not reflect any compromise in the patient's medical care. Please read the chart carefully and recognize, using context, where these substitutions have occurred. Plan discussed with: Patient, Spouse NYHA Physical activity limitations: Class3(Marked) ordinary (activity causes symtoms) Date of Service: Oct 22, 2024 Billing Provider: CLOTILDE COLINDRES Cardiology Common Codes: [id number] INP/OBS CARE (High) Cardiology Consultation Codes: [id number] CONSULT <45MIN CLOTILDE COLINDRES Oct 22, 2024 13:02
--- NOTE | 2024-10-22 15:20 | ECG ---
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
--- NOTE | 2024-10-22 16:12 | DVHPN2 ---
Progress Note Date Seen: Oct 22, 2024 Medical Necessity Reason Pt with a Central, PICC or Fol: No Subjective Patient reports: No new complaints Review of Systems: HEENT:Normal, CVS:Normal, RESPIRATORY:Normal, GI:Normal, :Normal, MSK:Normal, NEURO:Normal Objective vital signs Vital Sign Date Time Temp Pulse Resp B/P (MAP) Pulse Ox O2 Delivery O2 Flow Rate FiO2 10/22/24 14:00 100 Nasal Cannula* 2 28 10/22/24 13:00 98.1 92 22 154/71 (98) 98.1 Total Intake and Output 10/21/24 10/21/24 10/22/24 15:00 23:00 07:00 Intake Total 150 ml Output Total 75 ml Balance 75 ml medications Current Medications Medications Dose Ordered Sig/Edson Route Start Time Stop Time Status Last Admin Dose Admin Nitroglycerin 0.4 mg Q5MINP PRN SL 10/21/24 20:00 Morphine Sulfate 2 mg Q30M PRN IV 10/21/24 20:00 Clopidogrel Bisulfate 75 mg DAILY PO 10/22/24 10:00 10/22/24 09:35 75 MG Sevelamer HCl 800 mg TIDWM PO 10/22/24 08:00 10/22/24 11:56 800 MG Aspirin 81 mg DAILY PO 10/22/24 10:00 10/22/24 09:35 81 MG Atorvastatin Calcium 80 mg HS PO 10/21/24 22:00 10/21/24 22:56 80 MG Furosemide 40 mg DAILY PO 10/22/24 10:00 10/22/24 09:41 40 MG Albuterol 2.5 mg Q6HPRN PRN NEB 10/21/24 20:00 Ipratropium [place] 0.5 mg Q6HPRN PRN NEB 10/21/24 20:00 Diagnostic Test (Pha) 1 strip Q6HR 10/22/24 00:00 10/22/24 11:58 1 STRIP Insulin Human Regular Q6HR SC 10/22/24 00:00 10/22/24 05:57 2 UNITS Dextrose 50 ml UD PRN IV 10/21/24 20:00 Ondansetron HCl 4 mg Q4HP PRN IV 10/21/24 20:00 Acetaminophen 650 mg Q6HP PRN PO 10/21/24 20:00 Examination: GENERAL:Normal, HEENT:Normal, NECK:Normal, LUNGS:Normal, LUNGS:Abnormal (on oxygen), CVS:Normal, ABDOMEN:Normal, MSK:Normal, SKIN:Normal, NEURO:Normal, :Normal laboratory and microbiology Laboratory Tests 10/21/24 16:43 Test 10/21/24 16:43 Range/Units Serum Glucose 71 L 74-106 mg/dL Problem List/Assessment/Plan Problem List/Assessment/Plan #1 acute on chronic systolic/diastolic heart failure: lasix iv #2 esrd: on dialysis #3 acute on chronic resp failure #4 cad s/p stent #5 s/p cabg #6 copd #7 anemia #8 htn #9 dm: ssi #10 h/o Hep C advance care planning-full code- time spent 19 mins Plan discussed with: Patient My Orders My Orders Orders - CRAIG NAZARIO MD Procedure Category Date Status Time Carvedilol Tablet PHA 10/22/24 Transmitted (Coreg Tablet) 22:00 Basic Metabolic Panel LAB 10/23/24 Verified 06:00 Complete Blood Count LAB 10/23/24 Verified 06:00 Date of Service: Oct 22, 2024 Billing Provider: CRAIG NAZARIO MD Common Visit Codes: [id number] INP/OBS CARE(HIGH) Secondary Visit Codes: [id number] CARE PLAN 30 MINUTES CRAIG NAZARIO MD Oct 22, 2024 16:12
[2024-10-22] MEDS: FUROSEMIDE 100 MG/10ML VIAL IV ONE (16:35)
--- NOTE | 2024-10-22 16:43 | DVHINCON2 ---
Date of service: Oct 22, [address] Lucas Reason for Consultation ESKD History of Present Illness This is a 74-year-old male with history of end-stage kidney disease on hemodialysis, coronary artery disease status post CABG presenting to the emergency room complaining of shortness of breath. Patient noted to have an elevated troponin of approximately 200. Patient evaluated by Cardiology. For left heart catheterization tomorrow. Nephrology being consulted for continuation of dialysis. Past Medical History End-stage kidney disease on hemodialysis Coronary artery disease status post CABG Congestive heart failure Hypertension Hyperlipidemia COPD Type 2 diabetes Past Surgical History S/p CABG Dialysis access Family History: FH: cancer G8 MOTHER FH: heart disease G8 FATHER Family History Noncontributory Social History Ex-smoker Allergies: Coded Allergies: NO KNOWN ALLERGIES (Unverified , 01/05/24) Home Meds Active Scripts Sacubitril-Valsartan (Entresto 24-26 mg) 1 Tab Tab, 1 TAB PO BID for 30 Days, #60 TAB 1 Refill Prov:TESHA CARR RESIDENT 09/02/24 Clopidogrel Bisulfate (Plavix) 75 Mg Tab, 1 TAB PO DAILY for 30 Days, #30 TAB 1 Refill Prov:TESHA CARR RESIDENT 09/02/24 Reported Medications Furosemide (Furosemide) 40 Mg Tab, 1 TAB PO DAILY 01/07/24 Ergocalciferol (Vitamin D) 50,000 Unit Cap, 1 CAP PO QWEEKLY 01/07/24 Omeprazole (Omeprazole Dr) 40 Mg Cap, 1 CAP PO DAILY 01/07/24 Aspirin (Aspirin Low Dose) 81 Mg Chw, 1 TAB PO DAILY 01/07/24 Sevelamer Carbonate (Renvela) 800 Mg Tab, 2 TAB PO TID 01/07/24 Atorvastatin Calcium (Lipitor) 80 Mg Tab, 1 TAB PO DAILY 01/07/24 Carvedilol (Carvedilol) 25 Mg Tab, 1 TAB PO BID 01/07/24 Oxycodone HCl (Oxycodone Hydrochloride) 15 Mg Tab, 1 TAB PO QID 01/07/24 Discontinued Reported Medications Tamsulosin Hcl (Tamsulosin Hcl) 0.4 Mg Cap, 2 CAP PO DAILY 01/07/24 Magnesium Oxide (MAGNESIUM OXIDE) 400 Mg Tab, 1 TAB PO DAILY 01/07/24 Current Medications Current Medications Medications (Trade) Dose Ordered Sig/Edson Route PRN Reason Start Time Stop Time Status Last Admin Nitroglycerin (Ntrostat Sublingual) 0.4 mg Q5MINP PRN SL FOR CHEST PAIN 10/21/24 20:00 Morphine Sulfate 2 mg Q30M PRN IV FOR CHEST PAIN 10/21/24 20:00 Clopidogrel Bisulfate (Plavix) 75 mg DAILY PO 10/22/24 10:00 10/22/24 09:35 Sevelamer HCl (Renagel) 800 mg TIDWM PO 10/22/24 08:00 10/22/24 11:56 Aspirin 81 mg DAILY PO 10/22/24 10:00 10/22/24 09:35 Atorvastatin Calcium (Lipitor) 80 mg HS PO 10/21/24 22:00 10/21/24 22:56 Furosemide (Lasix Tablet) 40 mg DAILY PO 10/22/24 10:00 10/22/24 09:41 Albuterol (Ventolin Medneb) 2.5 mg Q6HPRN PRN NEB SHORTNESS OF BREATH 10/21/24 20:00 Ipratropium [place] (Atrovent Medneb) 0.5 mg Q6HPRN PRN NEB SHORTNESS OF BREATH 10/21/24 20:00 Diagnostic Test (Pha) (Accu-Chek Comfort Curve T) 1 strip Q6HR 10/22/24 00:00 10/22/24 11:58 Insulin Human Regular (InsuLIN R) Q6HR SC 10/22/24 00:00 10/22/24 05:57 Dextrose 50 ml UD PRN IV Blood Sugar LESS THAN 60 10/21/24 20:00 Ondansetron HCl (Zofran) 4 mg Q4HP PRN IV NAUSEA / VOMITING 10/21/24 20:00 Acetaminophen (Tylenol Tablet) 650 mg Q6HP PRN PO PAIN SCALE 1-3 OR TEMP>100.4 10/21/24 20:00 Carvedilol (Coreg Tablet) 6.25 mg Q12HR PO 10/22/24 22:00 Review of Systems 12 point review of systems negative except as stated in the HPI Vital Signs Vital Signs Date Time Temp Pulse Resp B/P (MAP) Pulse Ox O2 Delivery O2 Flow Rate FiO2 10/22/24 16:35 158/78 10/22/24 14:00 100 Nasal Cannula* 2 28 10/22/24 13:00 98.1 92 22 98.1 Physical Exam Awake alert oriented x3 HEENT: Normocephalic, no JVD Lungs: Bilateral good air entry CVS: S1, S2 regular rate rhythm Abdomen: Soft, bowel sounds present HISTORICAL SITE GUIDE: No focal deficits Extremities: No edema Labs/Diagnostic Data Labs Test 10/22/24 11:54 10/22/24 11:25 10/21/24 19:53 10/21/24 16:43 Range/Units POC Glucose 104 70-106 mg/dl Urine Color Light-yellow Yellow Urine Clarity Clear Clear Urine pH 8.0 5.0-9.0 Urine Specific [place] 1.011 1.001-1.035 Urine Protein 2+ H Negative Urine Ketones Negative Negative Urine Blood Negative Negative /uL Urine Nitrite Negative Negative Urine Bilirubin Negative Negative Urine Urobilinogen Normal Negative mg/dL Urine Leukocyte Esterase 1+ Negative /uL Urine RBC 3 0 - 3 /hpf Urine Microscopic WBC 39 H 0-3 /HPF Urine Squamous Epithelial Cells Few <5 /hpf Urine Bacteria Few H None Seen /hpf Urine Glucose 2+ H Normal mg/dL Troponin I High Sensitivity 208 *H </=54 ng/L White Blood Count 5.0 4.4-10.8 10^3/uL Red Blood Count 2.35 L 4.5-5.90 10^6/uL Hemoglobin 7.6 L 13.5-17.5 g/dL Hematocrit 23.0 L 41.0-53.0 % Mean Corpuscular Volume 97.6 80.0-100.0 fL Mean Corpuscular Hemoglobin 32.3 H 28.0-32.0 pg Mean Corpuscular Hemoglobin Concent 33.1 32.0-36.0 g/dL Red Cell Distribution Width 17.8 H 11.8-14.3 % Platelet Count 225 140-450 10^3/uL Mean Platelet Volume 6.7 L 6.9-10.8 fL Neutrophils (%) (Auto) 65.8 37.0-80.0 % Lymphocytes (%) (Auto) 16.3 10.0-50.0 % Monocytes (%) (Auto) 14.9 H 0.0-12.0 % Eosinophils (%) (Auto) 2.6 0.0-7.0 % Basophils (%) (Auto) 0.4 0.0-2.0 % Neutrophils # (Auto) 3.3 1.6-8.6 10 ^3/uL Lymphocytes # (Auto) 0.8 0.4-5.4 10 ^3/uL Monocytes # (Auto) 0.8 0-1.3 10 ^3/uL Eosinophils # (Auto) 0.1 0-0.8 10 ^3/uL Basophils # (Auto) 0 0-0.2 10 ^3/uL Nucleated Red Blood Cells 0.1 % Sodium Level 136 136-145 mmol/L Potassium Level 5.1 3.5-5.1 mmol/L Chloride Level 94 L 98-107 mmol/L Carbon Dioxide Level 33 H 20-31 mmol/L Anion Gap 9 5-15 Blood Urea Nitrogen 61 H 9-23 mg/dL Creatinine 7.68 H 0.700-1.30 mg/dL Glomerular Filtration Rate Calc 7 >90 mL/min BUN/Creatinine Ratio 7.9 L 10.0-20.0 Serum Glucose 71 L 74-106 mg/dL Lactic Acid Level 1.1 0.4-2.0 mmol/L Calcium Level 10.5 H 8.7-10.4 mg/dL Magnesium Level 3.3 H 1.6-2.6 mg/dL Total Bilirubin 0.3 0.2-1.0 mg/dL Aspartate Amino Transferase (AST) 19 13-40 U/L Alanine Aminotransferase (ALT) 33 7-40 U/L Alkaline Phosphatase 130 H 46-116 U/L B-Type Natriuretic Peptide > 5000.00 0-100 pg/mL Total Protein 7.1 5.7-8.2 g/dL Albumin 3.9 3.2-4.8 g/dL Assessment End-stage kidney disease on hemodialysis Elevated troponins History of coronary artery disease Acute on chronic systolic/diastolic heart failure Acute on chronic respiratory failure Hypertension Type 2 diabetes Anemia in Chronic kidney disease History of hepatitis-C Plan/Recommendation Hemodialysis today with ultrafiltration of 2.5 L. Workup for chest pain as per Cardiology. Continue with Lasix. Plan discussed with: Patient SHAREE KHANNA MD Oct 22, 2024 16:43
[2024-10-23] VITALS (16 sets, daily range): BP systolic 116–153; BP diastolic 57–82; PULSE 75–99; RESP 16–22; TEMP 97.9–98.8; O2SAT 96–100
[2024-10-23] MEDS: EPOETIN ALFA-EPBX 10,000 UNIT/1ML VIAL SC ONE (00:12)
[2024-10-23] MEDS: CARVEDILOL 3.125 MG TAB PO SCH (00:14)
[2024-10-23 06:12] LABS: Basophils # (auto) 0 10 ^3/uL (0-0.2); Basophils % (auto) 0.7 % (0.0-2.0); Eosinophils # (auto) 0.1 10 ^3/uL (0-0.8); Eosinophils % (auto) 1.9 % (0.0-7.0); Hematocrit 22.4 % (41.0-53.0); Hemoglobin 7.4 g/dL (13.5-17.5); Lymphocytes # (auto) 0.8 10 ^3/uL (0.4-5.4); Lymphocytes % (auto) 15.4 % (10.0-50.0); Mean Corpuscular Volume 99.8 fL (80.0-100.0); Monocytes # (auto) 0.8 10 ^3/uL (0-1.3); Monocytes % (auto) 15.5 % (0.0-12.0); Neutrophils # (auto) 3.4 10 ^3/uL (1.6-8.6); Neutrophils % (auto) 66.5 % (37.0-80.0); Nucleated Red Blood Cells % 0.1 %; Platelet Count (auto) 224 10^3/uL (140-450); Red Blood Cells 2.24 10^6/uL (4.5-5.90); Red Cell Distribution Width 17.3 % (11.8-14.3); White Blood Cell 5.1 10^3/uL (4.4-10.8)
[2024-10-23 06:25] LABS: Anion Gap 10 (5-15); Carbon Dioxide 29 mmol/L (20-31); Chloride 99 mmol/L (98-107); Potassium 4.2 mmol/L (3.5-5.1); Sodium 138 mmol/L (136-145)
[2024-10-23 06:26] LABS: Calcium 9.6 mg/dL (8.7-10.4)
[2024-10-23 06:30] LABS: Glucose 83 mg/dL (74-106); INR 1.14 (0.9-1.15); Partial Thromboplastin Time 27.9 SEC (24.5-34.5); Prothrombin Time 11.9 sec (9.3-11.8)
[2024-10-23 06:31] LABS: BUN/Creatinine Ratio 5.5 (10.0-20.0)
[2024-10-23 06:32] LABS: Blood Urea Nitrogen 33 mg/dL (9-23)
--- NOTE | 2024-10-23 08:56 | ECG ---
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
--- NOTE | 2024-10-23 09:24 | DVHPN2 ---
Progress Note - Dictate Date Seen: Oct 23, 2024 Medical Necessity Reason Pt with a Central, PICC or Fol: No Subjective no acute issues overnight. Underwent dialysis yesterday with ultrafiltration of 2.5 L. Scheduled for left heart catheterization today. vital signs Vital Sign Date Time Temp Pulse Resp B/P (MAP) Pulse Ox O2 Delivery O2 Flow Rate FiO2 10/23/24 05:00 98.2 93 19 134/67 (89) 100 98.2 10/22/24 20:00 Nasal Cannula* 3 32 Total Intake and Output 10/22/24 10/22/24 10/23/24 15:00 23:00 07:00 Intake Total 854 ml 230 ml Output Total 0 ml Balance 854 ml 230 ml medications Current Medications Medications Dose Ordered Sig/Edson Route Start Time Stop Time Status Last Admin Dose Admin Nitroglycerin 0.4 mg Q5MINP PRN SL 10/21/24 20:00 Morphine Sulfate 2 mg Q30M PRN IV 10/21/24 20:00 Clopidogrel Bisulfate 75 mg DAILY PO 10/22/24 10:00 10/22/24 09:35 Sevelamer HCl 800 mg TIDWM PO 10/22/24 08:00 10/22/24 18:22 Aspirin 81 mg DAILY PO 10/22/24 10:00 10/22/24 09:35 Atorvastatin Calcium 80 mg HS PO 10/21/24 22:00 10/23/24 00:13 Furosemide 40 mg DAILY PO 10/22/24 10:00 10/22/24 09:41 Albuterol 2.5 mg Q6HPRN PRN NEB 10/21/24 20:00 Ipratropium [place] 0.5 mg Q6HPRN PRN NEB 10/21/24 20:00 Diagnostic Test (Pha) 1 strip Q6HR 10/22/24 00:00 10/23/24 06:20 Insulin Human Regular Q6HR SC 10/22/24 00:00 10/22/24 17:12 Dextrose 50 ml UD PRN IV 10/21/24 20:00 Ondansetron HCl 4 mg Q4HP PRN IV 10/21/24 20:00 Acetaminophen 650 mg Q6HP PRN PO 10/21/24 20:00 Carvedilol 6.25 mg Q12HR PO 10/22/24 22:00 10/23/24 00:14 objective Awake alert oriented x3 HEENT: Normocephalic, no JVD Lungs: Bilateral good air entry CVS: S1, S2 regular rate rhythm Abdomen: Soft, bowel sounds present 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
[2024-10-23 11:54] LABS: Hepatitis A Ab IgM Negative; Hepatitis B Core IgM Negative (Negative); Hepatitis B Surface Antigen Negative (Negative)
[2024-10-23 11:59] LABS: Hepatitis C Antibody Reactive (Negative)
--- NOTE | 2024-10-23 12:44 | DVHPN2 ---
Reviewed: Care Plan, H&P, Labs, Medications, Previous Orders, Radiology Changes from previous H/P or p: No Changes Objective Vitals Vital Signs Date Time Temp Pulse Resp B/P (MAP) Pulse Ox O2 Delivery O2 Flow Rate FiO2 10/23/24 10:09 96 Nasal Cannula* 2 28 10/23/24 09:00 98.7 75 16 132/68 (89) 98.7 Intake/Output Intake and Output 10/23/24 07:00 Intake Total 1084 ml Output Total 0 ml Balance 1084 ml Intake Oral 1084 ml Output Urine Total 0 ml # Voids 2 # Bowel Movements 2 Medications Current Medications Medications Dose Ordered Sig/Edson Route Start Time Stop Time Status Last Admin Dose Admin Nitroglycerin 0.4 mg Q5MINP PRN SL 10/21/24 20:00 Morphine Sulfate 2 mg Q30M PRN IV 10/21/24 20:00 Clopidogrel Bisulfate 75 mg DAILY PO 10/22/24 10:00 10/22/24 09:35 75 MG Sevelamer HCl 800 mg TIDWM PO 10/22/24 08:00 10/22/24 18:22 800 MG Aspirin 81 mg DAILY PO 10/22/24 10:00 10/22/24 09:35 81 MG Atorvastatin Calcium 80 mg HS PO 10/21/24 22:00 10/23/24 00:13 80 MG Furosemide 40 mg DAILY PO 10/22/24 10:00 10/22/24 09:41 40 MG Albuterol 2.5 mg Q6HPRN PRN NEB 10/21/24 20:00 Ipratropium [place] 0.5 mg Q6HPRN PRN NEB 10/21/24 20:00 Diagnostic Test (Pha) 1 strip Q6HR 10/22/24 00:00 10/23/24 12:05 1 STRIP Insulin Human Regular Q6HR SC 10/22/24 00:00 10/22/24 17:12 2 UNITS Dextrose 50 ml UD PRN IV 10/21/24 20:00 Ondansetron HCl 4 mg Q4HP PRN IV 10/21/24 20:00 Acetaminophen 650 mg Q6HP PRN PO 10/21/24 20:00 Carvedilol 6.25 mg Q12HR PO 10/22/24 22:00 10/23/24 00:14 6.25 MG Laboratory Results Laboratory Tests 10/23/24 05:30 Chemistry Test 10/23/24 05:30 Calcium Level 9.6 mg/dL (8.7-10.4) Coagulation Test 10/23/24 05:30 Prothrombin Time 11.9 sec (9.3-11.8) H Prothrombin Time INR 1.14 (0.9-1.15) Activated Partial Thromboplast Time 27.9 SEC (24.5-34.5) Urinalysis Test 10/22/24 11:25 Urine Color Light-yellow (Yellow) Urine Clarity Clear (Clear) Urine pH 8.0 (5.0-9.0) Urine Specific [place] 1.011 (1.001-1.035) Urine Protein 2+ (Negative) H Urine Ketones Negative (Negative) Urine Blood Negative /uL (Negative) Urine Nitrite Negative (Negative) Urine Bilirubin Negative (Negative) Urine Urobilinogen Normal mg/dL (Negative) Urine Leukocyte Esterase 1+ /uL (Negative) Urine RBC 3 /hpf (0 - 3) Urine Microscopic WBC 39 /HPF (0-3) H Urine Squamous Epithelial Cells Few /hpf (<5) Urine Bacteria Few /hpf (None Seen) H Urine Glucose 2+ mg/dL (Normal) H Microbiology Microbiology Date/Time Source Procedure Growth Status 10/22/24 04:28 Nose MRSA Screen - Final Complete Labs and/or images reviewed: Labs reviewed by me, Image(s) reviewed by me Assessment/Plan Assessment/Plan Covering for Dr. Lucas #1 acute on chronic systolic/diastolic heart failure: lasix iv #2 esrd: on dialysis #3 acute on chronic resp failure #4 cad s/p stent #5 s/p cabg #6 copd #7 anemia #8 htn #9 dm: ssi #10 h/o Hep C Continue current management Time Spent 40 minutes Plan discussed with: Patient Date of Service: Oct 23, 2024 Billing Provider: CHRIS SIDHU MD Common Visit Codes: [id number] INP/OBS CARE(HIGH) CHRIS SIDHU MD Oct 23, 2024 12:44
[2024-10-23] MEDS: IODIXANOL 320MG/ML 100ML BTL IV ONE ×2 (13:37→15:08)
[2024-10-23] MEDS: ANGIOMAX 250 MG VIAL IV ONE (13:49)
[2024-10-23] MEDS: MIDAZOLAM HCL 2MG/2ML 2ml VIAL (1mg/ml) ONE (13:50)
[2024-10-23] MEDS: fentaNYL CITRATE 100 MCG/2 ML VL ONE (13:50)
[2024-10-23] MEDS: LIDOCAINE 2%HCL (LOCAL ANESTH.) INJ 20ML MDV ONE (13:50)
[2024-10-23] MEDS: SODIUM CHL 0.9% 50 ML ONE (13:51)
[2024-10-23] MEDS: IOHEXOL 350 MG/ML 100ML IJ ONE (15:08)
--- NOTE | 2024-10-23 15:23 | DVHOP2 ---
Operative Report - 2 Report Details Date: 10/23/24 Preop Diagnosis: CAD progression Postop Diagnosis: CAD. Cardiomyopathy Surgeon: Charanjit Cardona MD Anesthesiologist: Conscious sedation Anesthesia: Mac, Local ( conscious sedation administered throughout. Patient was monitored.) Consent: The patient was informed of the risks and benefits of the procedure. These include but are not limited to complications of anesthesia, postoperative infection, incomplete relief of symptoms, recurrence of symptoms, damage to blood vessels, nerves and tendons, deep venous thrombosis, pulmonary embolism and possible need for repeat surgery in the future. Complications: No complications Estimated Blood Loss: 5 cc Findings: CAD Indications for Surgery: Chest pain Name of Procedure Performed Left heart catheterization bilateral cine coronary angiography. Left ventr iculography. Visualization saphenous venous graft and left internal mammary artery. Procedure Details Procedure Details: Prior local anesthesia with 2% lidocaine to the right groin full informed consent obtained under ultrasound and fluoroscopic guidance we placed a six [place]ian sheath into the femoral artery through which six [place]ian Gloria catheters were used to cannulate both right and left coronary ostia and a six [place] pigtail catheter was used for ventriculography. A right coronary bypass was used to evaluate right grafts to the RCA. a Gloria right was used to evaluate the left coronary saphenous grafts and internal mammary artery. Hemodynamics aortic blood pressure was 130/70. End-diastolic pressure was 10. There was no gradient across the aortic valve on pullback. Coronary anatomy: The RCA is a large artery is 100% occluded proximally. Left main is a normal artery. He has large. There was no stenosis proximal mid section. The distal segment has mild plaquing. The LAD is patent. The LAD recently stented is patent. There was good flow of the mid and distal segments. Collateral filling of the distal RCA noted. The saphenous graft to A small diagonal is patent. The internal mammary artery to the diagonal is large and normal. A graft with a right could not be found. Ventriculography in the DYKES projection showed an enlarged left ventricle. Inferior hypokinesis. Global hypokinesis underlying. EF of 30%. impression: Normal left ventricular end-diastolic pressure at rest. Decreased left ventricular ejection fraction. Coronary artery disease as above with an occluded RCA. Occluded circumflex. Patent saphenous graft to the small diagonal. Patent internal mammary 2nd diagonal. Patent left main and LAD. Recommendations: Continue medical therapy. Risk factor modification to continue. Condition Guarded Disposition Still a Patient Date of Service: Oct 23, 2024 Billing Provider: CHARANJIT CARDONA Sr., MD Cardiology Common Codes: [id number] INP/OBS CARE (High) Cardiology Procedure Codes: [id number] VESSEL W/I VASC FAM, [id number] ADD COR ART/BRNCH/GRFT, 78368-R/L HEART CATH W/BYPASS GFT CHARANJIT CARDONA Sr., MD Oct 23, 2024 15:23
[2024-10-23] MEDS: EPOETIN ALFA-EPBX 4,000 UNIT/ML VIAL SC ONE (21:49)
[2024-10-24] VITALS (11 sets, daily range): BP systolic 109–123; BP diastolic 51–62; PULSE 77–91; RESP 12–18; TEMP 98–99; O2SAT 98–100
[2024-10-24 06:40] LABS: Alanine Aminotransferase 33 U/L (7-40); Albumin 3.8 g/dL (3.2-4.8); Alkaline Phosphatase 93 U/L (46-116); Anion Gap 11 (5-15); Aspartate Aminotransferase 25 U/L (13-40); BUN/Creatinine Ratio 6.3 (10.0-20.0); Calcium 10.1 mg/dL (8.7-10.4); Carbon Dioxide 30 mmol/L (20-31); Glucose 94 mg/dL (74-106); Potassium 4.7 mmol/L (3.5-5.1); Sodium 137 mmol/L (136-145); Total Protein 7.3 g/dL (5.7-8.2)
[2024-10-24 06:53] LABS: Bilirubin, Total 0.3 mg/dL (0.2-1.0); Blood Urea Nitrogen 33 mg/dL (9-23); Chloride 96 mmol/L (98-107)
[2024-10-24] MEDS: SODIUM CHL 0.9% 1000 ML BAG XX ONE ×2 (07:57→07:59)
--- NOTE | 2024-10-24 10:03 | DVHPN2 ---
Reviewed: Care Plan, H&P, Labs, Medications, Previous Orders, Radiology Changes from previous H/P or p: No Changes Objective Vitals Vital Signs Date Time Temp Pulse Resp B/P (MAP) Pulse Ox O2 Delivery O2 Flow Rate FiO2 10/24/24 05:00 98.0 91 16 123/62 (82) 100 98.0 10/23/24 20:03 Nasal Cannula 3.0 10/23/24 20:03 32 Intake/Output Intake and Output 10/24/24 07:00 Intake Total 890 ml Output Total 650 ml Balance 240 ml Intake Oral 890 ml Output Urine Total 650 ml Medications Current Medications Medications Dose Ordered Sig/Edson Route Start Time Stop Time Status Last Admin Dose Admin Nitroglycerin 0.4 mg Q5MINP PRN SL 10/21/24 20:00 Morphine Sulfate 2 mg Q30M PRN IV 10/21/24 20:00 Clopidogrel Bisulfate 75 mg DAILY PO 10/22/24 10:00 10/22/24 09:35 75 MG Sevelamer HCl 800 mg TIDWM PO 10/22/24 08:00 10/22/24 18:22 800 MG Aspirin 81 mg DAILY PO 10/22/24 10:00 10/22/24 09:35 81 MG Atorvastatin Calcium 80 mg HS PO 10/21/24 22:00 10/23/24 21:51 80 MG Furosemide 40 mg DAILY PO 10/22/24 10:00 10/22/24 09:41 40 MG Albuterol 2.5 mg Q6HPRN PRN NEB 10/21/24 20:00 Ipratropium [place] 0.5 mg Q6HPRN PRN NEB 10/21/24 20:00 Diagnostic Test (Pha) 1 strip Q6HR 10/22/24 00:00 10/24/24 06:01 1 STRIP Insulin Human Regular Q6HR SC 10/22/24 00:00 10/24/24 00:41 2 UNITS Dextrose 50 ml UD PRN IV 10/21/24 20:00 Ondansetron HCl 4 mg Q4HP PRN IV 10/21/24 20:00 Acetaminophen 650 mg Q6HP PRN PO 10/21/24 20:00 Carvedilol 6.25 mg Q12HR PO 10/22/24 22:00 10/23/24 21:52 6.25 MG Laboratory Results Laboratory Tests 10/23/24 05:30 10/24/24 05:25 Chemistry Test 10/24/24 05:25 Albumin 3.8 g/dL (3.2-4.8) Calcium Level 10.1 mg/dL (8.7-10.4) Total Protein 7.3 g/dL (5.7-8.2) LFT Test 10/24/24 05:25 Alanine Aminotransferase (ALT) 33 U/L (7-40) Alkaline Phosphatase 93 U/L (46-116) Aspartate Amino Transferase (AST) 25 U/L (13-40) Total Bilirubin 0.3 mg/dL (0.2-1.0) Urinalysis Test 10/22/24 11:25 Urine Color Light-yellow (Yellow) Urine Clarity Clear (Clear) Urine pH 8.0 (5.0-9.0) Urine Specific [place] 1.011 (1.001-1.035) Urine Protein 2+ (Negative) H Urine Ketones Negative (Negative) Urine Blood Negative /uL (Negative) Urine Nitrite Negative (Negative) Urine Bilirubin Negative (Negative) Urine Urobilinogen Normal mg/dL (Negative) Urine Leukocyte Esterase 1+ /uL (Negative) Urine RBC 3 /hpf (0 - 3) Urine Microscopic WBC 39 /HPF (0-3) H Urine Squamous Epithelial Cells Few /hpf (<5) Urine Bacteria Few /hpf (None Seen) H Urine Glucose 2+ mg/dL (Normal) H Microbiology Microbiology Date/Time Source Procedure Growth Status 10/22/24 04:28 Nose MRSA Screen - Final Complete Labs and/or images reviewed: Labs reviewed by me, Image(s) reviewed by me Assessment/Plan Assessment/Plan Covering for Dr. Lucas #1 acute on chronic systolic/diastolic heart failure: lasix iv #2 esrd: on dialysis #3 acute on chronic resp failure #4 cad s/p stent #5 s/p cabg #6 copd #7 anemia #8 htn #9 dm: ssi #10 h/o Hep C Status post left heart catheterization by Dr. Cardona on 10-23-24 with the following findings: Occluded circumflex. Patent saphenous graft to the small diagonal. Patent internal mammary 2nd diagonal. Patent left main and LAD. Will DC home after clearance by Cardiology Continue current management Time Spent 40 minutes Plan discussed with: Patient Date of Service: Oct 24, 2024 Billing Provider: CHRIS SIDHU MD Common Visit Codes: [id number] INP/OBS CARE(HIGH) CHRIS SIDHU MD Oct 24, 2024 10:03
--- NOTE | 2024-10-24 16:12 | DVHPN2 ---
Progress Note - Dictate Date Seen: Oct 24, 2024 Medical Necessity Reason Pt with a Central, PICC or Fol: No Subjective s/p LHC yesterday Findings : Normal left ventricular end-diastolic pressure at rest. Decreased left ventricular ejection fraction. Coronary artery disease as above with an occluded RCA. Occluded circumflex. Patent saphenous graft to the small diagonal. Patent internal mammary 2nd diagonal. Patent left main and LAD. vital signs Vital Sign Date Time Temp Pulse Resp B/P (MAP) Pulse Ox O2 Delivery O2 Flow Rate FiO2 10/24/24 12:43 98.8 77 16 111/55 (73) 99 98.8 10/24/24 10:27 Nasal Cannula* 3 32 Total Intake and Output 10/23/24 10/23/24 10/24/24 15:00 23:00 07:00 Intake Total 90 ml 800 ml Output Total 0 ml 650 ml Balance 90 ml 150 ml medications Current Medications Medications Dose Ordered Sig/Edson Route Start Time Stop Time Status Last Admin Dose Admin Nitroglycerin 0.4 mg Q5MINP PRN SL 10/21/24 20:00 Morphine Sulfate 2 mg Q30M PRN IV 10/21/24 20:00 Clopidogrel Bisulfate 75 mg DAILY PO 10/22/24 10:00 10/24/24 10:19 75 MG Sevelamer HCl 800 mg TIDWM PO 10/22/24 08:00 10/24/24 12:00 800 MG Aspirin 81 mg DAILY PO 10/22/24 10:00 10/24/24 10:20 81 MG Atorvastatin Calcium 80 mg HS PO 10/21/24 22:00 10/23/24 21:51 80 MG Furosemide 40 mg DAILY PO 10/22/24 10:00 10/24/24 10:21 40 MG Albuterol 2.5 mg Q6HPRN PRN NEB 10/21/24 20:00 Ipratropium [place] 0.5 mg Q6HPRN PRN NEB 10/21/24 20:00 Diagnostic Test (Pha) 1 strip Q6HR 10/22/24 00:00 10/24/24 12:00 1 STRIP Insulin Human Regular Q6HR SC 10/22/24 00:00 10/24/24 00:41 2 UNITS Dextrose 50 ml UD PRN IV 10/21/24 20:00 Ondansetron HCl 4 mg Q4HP PRN IV 10/21/24 20:00 Acetaminophen 650 mg Q6HP PRN PO 10/21/24 20:00 Carvedilol 6.25 mg Q12HR PO 10/22/24 22:00 10/24/24 10:30 6.25 MG objective Awake alert oriented x3 HEENT: Normocephalic, no JVD Lungs: Bilateral good air entry CVS: S1, S2 regular rate rhythm Abdomen: Soft, bowel sounds present [employer]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 Next HD on Saturday Dietary Evaluation Review Comments: 1) CCHO 60 + renal standard diet 2) Continue current plan of care Expected Outcomes/Goals: To meet >75% estimated needs Fu 3-5 days Plan discussed with: Patient SHAREE KHANNA MD Oct 24, 2024 16:12
[2024-10-25] VITALS (10 sets, daily range): BP systolic 119–139; BP diastolic 55–70; PULSE 77–88; RESP 12–18; TEMP 98–98.5; O2SAT 99–100
--- NOTE | 2024-10-25 09:20 | DVHPN2 ---
Progress Note - Dictate Date Seen: Oct 25, 2024 Medical Necessity Reason Pt with a Central, PICC or Fol: No Subjective s/p LHC on 10/23 Findings : Normal left ventricular end-diastolic pressure at rest. Decreased left ventricular ejection fraction. Coronary artery disease as above with an occluded RCA. Occluded circumflex. Patent saphenous graft to the small diagonal. Patent internal mammary 2nd diagonal. Patent left main and LAD. No acute issues overnight vital signs Vital Sign Date Time Temp Pulse Resp B/P (MAP) Pulse Ox O2 Delivery O2 Flow Rate FiO2 10/25/24 08:30 98.1 84 12 130/62 (84) 100 98.1 10/25/24 08:00 Nasal Cannula* 3 32 Total Intake and Output 10/24/24 10/24/24 10/25/24 15:00 23:00 07:00 Intake Total 240 ml 350 ml Balance 240 ml 350 ml medications Current Medications Medications Dose Ordered Sig/Edson Route Start Time Stop Time Status Last Admin Dose Admin Nitroglycerin 0.4 mg Q5MINP PRN SL 10/21/24 20:00 Morphine Sulfate 2 mg Q30M PRN IV 10/21/24 20:00 Clopidogrel Bisulfate 75 mg DAILY PO 10/22/24 10:00 10/24/24 10:19 75 MG Sevelamer HCl 800 mg TIDWM PO 10/22/24 08:00 10/25/24 09:16 800 MG Aspirin 81 mg DAILY PO 10/22/24 10:00 10/24/24 10:20 81 MG Atorvastatin Calcium 80 mg HS PO 10/21/24 22:00 10/24/24 21:41 80 MG Furosemide 40 mg DAILY PO 10/22/24 10:00 10/24/24 10:21 40 MG Albuterol 2.5 mg Q6HPRN PRN NEB 10/21/24 20:00 Ipratropium [place] 0.5 mg Q6HPRN PRN NEB 10/21/24 20:00 Diagnostic Test (Pha) 1 strip Q6HR 10/22/24 00:00 10/25/24 06:17 1 STRIP Insulin Human Regular Q6HR SC 10/22/24 00:00 10/25/24 00:37 3 UNITS Dextrose 50 ml UD PRN IV 10/21/24 20:00 Ondansetron HCl 4 mg Q4HP PRN IV 10/21/24 20:00 Acetaminophen 650 mg Q6HP PRN PO 10/21/24 20:00 Carvedilol 6.25 mg Q12HR PO 10/22/24 22:00 10/24/24 21:42 6.25 MG objective Awake alert oriented x3 HEENT: Normocephalic, no JVD Lungs: Bilateral good air entry CVS: S1, S2 regular rate rhythm Abdomen: Soft, 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 DC as per primary Dietary Evaluation Review Comments: 1) CCHO 60 + renal standard diet 2) Continue current plan of care Expected Outcomes/Goals: To meet >75% estimated needs Fu 3-5 days Plan discussed with: Patient SHAREE KHANNA MD Oct 25, 2024 09:20
[2024-10-25 11:05] LABS: Hemoglobin 7.9 g/dL (13.5-17.5)
--- NOTE | 2024-10-25 11:10 | DVHPN2 ---
Reviewed: Care Plan, H&P, Labs, Medications, Previous Orders, Radiology Changes from previous H/P or p: No Changes Objective Vitals Vital Signs Date Time Temp Pulse Resp B/P (MAP) Pulse Ox O2 Delivery O2 Flow Rate FiO2 10/25/24 09:10 100 Nasal Cannula 2.0 10/25/24 09:10 28 10/25/24 08:30 98.1 84 12 130/62 (84) 98.1 Intake/Output Intake and Output 10/25/24 07:00 Intake Total 590 ml Balance 590 ml Intake Oral 590 ml # Voids 2 Medications Current Medications Medications Dose Ordered Sig/Edson Route Start Time Stop Time Status Last Admin Dose Admin Nitroglycerin 0.4 mg Q5MINP PRN SL 10/21/24 20:00 Morphine Sulfate 2 mg Q30M PRN IV 10/21/24 20:00 Clopidogrel Bisulfate 75 mg DAILY PO 10/22/24 10:00 10/24/24 10:19 75 MG Sevelamer HCl 800 mg TIDWM PO 10/22/24 08:00 10/25/24 09:16 800 MG Aspirin 81 mg DAILY PO 10/22/24 10:00 10/24/24 10:20 81 MG Atorvastatin Calcium 80 mg HS PO 10/21/24 22:00 10/24/24 21:41 80 MG Furosemide 40 mg DAILY PO 10/22/24 10:00 10/24/24 10:21 40 MG Albuterol 2.5 mg Q6HPRN PRN NEB 10/21/24 20:00 Ipratropium [place] 0.5 mg Q6HPRN PRN NEB 10/21/24 20:00 Diagnostic Test (Pha) 1 strip Q6HR 10/22/24 00:00 10/25/24 06:17 1 STRIP Insulin Human Regular Q6HR SC 10/22/24 00:00 10/25/24 00:37 3 UNITS Dextrose 50 ml UD PRN IV 10/21/24 20:00 Ondansetron HCl 4 mg Q4HP PRN IV 10/21/24 20:00 Acetaminophen 650 mg Q6HP PRN PO 10/21/24 20:00 Carvedilol 6.25 mg Q12HR PO 10/22/24 22:00 10/24/24 21:42 6.25 MG Laboratory Results Laboratory Tests 10/23/24 05:30 4/19/25 05:25 Urinalysis Test 10/22/24 11:25 Urine Color Light-yellow (Yellow) Urine Clarity Clear (Clear) Urine pH 8.0 (5.0-9.0) Urine Specific [place] 1.011 (1.001-1.035) Urine Protein 2+ (Negative) H Urine Ketones Negative (Negative) Urine Blood Negative /uL (Negative) Urine Nitrite Negative (Negative) Urine Bilirubin Negative (Negative) Urine Urobilinogen Normal mg/dL (Negative) Urine Leukocyte Esterase 1+ /uL (Negative) Urine RBC 3 /hpf (0 - 3) Urine Microscopic WBC 39 /HPF (0-3) H Urine Squamous Epithelial Cells Few /hpf (<5) Urine Bacteria Few /hpf (None Seen) H Urine Glucose 2+ mg/dL (Normal) H Microbiology Microbiology Date/Time Source Procedure Growth Status 10/22/24 04:28 Nose MRSA Screen - Final Complete Labs and/or images reviewed: Labs reviewed by me, Image(s) reviewed by me Assessment/Plan Assessment/Plan Covering for Dr. Lucas #1 acute on chronic systolic/diastolic heart failure: lasix iv #2 esrd: on dialysis #3 acute on chronic resp failure #4 cad s/p stent #5 s/p cabg #6 copd #7 anemia #8 htn #9 dm: ssi #10 h/o Hep C Status post left heart catheterization by Dr. Cardona on 10-23-24 with the following findings: Occluded circumflex. Patent saphenous graft to the small diagonal. Patent internal mammary 2nd diagonal. Patent left main and LAD. Patient would like to get dialysis on Saturday and then be discharged Plan discussed with: Patient Date of Service: Oct 25, 2024 Billing Provider: CHRIS SIDHU MD Common Visit Codes: [id number] INP/OBS CARE(HIGH) CHRIS SIDHU MD Oct 25, 2024 11:10
[2024-10-26] VITALS (15 sets, daily range): BP systolic 110–146; BP diastolic 48–73; PULSE 70–89; RESP 14–19; TEMP 97.5–98.4; O2SAT 10–100
[2024-10-26 06:26] LABS: Basophils # (auto) 0 10 ^3/uL (0-0.2); Eosinophils # (auto) 0.1 10 ^3/uL (0-0.8); Hemoglobin 7.4 g/dL (13.5-17.5)
[2024-10-26 06:29] LABS: Basophils % (auto) 0.5 % (0.0-2.0); Eosinophils % (auto) 2.6 % (0.0-7.0); Hematocrit 20.8 % (41.0-53.0); Lymphocytes % (auto) 19.3 % (10.0-50.0); Mean Corpuscular Hemoglobin 35.4 pg (28.0-32.0); Mean Corpuscular Hgb Conc. 35.4 g/dL (32.0-36.0); Mean Corpuscular Volume 100.2 fL (80.0-100.0); Monocytes # (auto) 0.9 10 ^3/uL (0-1.3); Neutrophils # (auto) 3.2 10 ^3/uL (1.6-8.6); Neutrophils % (auto) 60.6 % (37.0-80.0); Platelet Count (auto) 226 10^3/uL (140-450); Red Blood Cells 2.08 10^6/uL (4.5-5.90); Red Cell Distribution Width 16.8 % (11.8-14.3); White Blood Cell 5.2 10^3/uL (4.4-10.8)
[2024-10-26 06:47] LABS: Alanine Aminotransferase 23 U/L (7-40); Alkaline Phosphatase 87 U/L (46-116); Anion Gap 12 (5-15); BUN/Creatinine Ratio 6.1 (10.0-20.0); Calcium 10.3 mg/dL (8.7-10.4); Carbon Dioxide 26 mmol/L (20-31); Chloride 100 mmol/L (98-107); Potassium 4.4 mmol/L (3.5-5.1); Sodium 138 mmol/L (136-145); Total Protein 6.7 g/dL (5.7-8.2)
[2024-10-26 06:48] LABS: Blood Urea Nitrogen 60 mg/dL (9-23); Glucose 116 mg/dL (74-106)
[2024-10-26 06:49] LABS: Albumin 3.5 g/dL (3.2-4.8); Aspartate Aminotransferase 13 U/L (13-40)
[2024-10-26 06:50] LABS: Bilirubin, Total 0.2 mg/dL (0.2-1.0)
[2024-10-26] MEDS: SODIUM CHL 0.9% 1000 ML BAG XX ONE (07:00)
--- NOTE | 2024-10-26 10:32 | DVHPN2 ---
Progress Note Date Seen: Oct 26, 2024 Medical Necessity Reason Pt with a Central, PICC or Fol: No Subjective Patient reports: No new complaints Review of Systems: HEENT:Normal, CVS:Normal, RESPIRATORY:Normal, GI:Normal, :Normal, MSK:Normal, NEURO:Normal Objective vital signs Vital Sign Date Time Temp Pulse Resp B/P (MAP) Pulse Ox O2 Delivery O2 Flow Rate FiO2 10/26/24 10:14 100 Nasal Cannula* 3 32 10/26/24 08:30 98.1 84 16 129/58 (81) 98.1 Total Intake and Output 10/25/24 10/25/24 10/26/24 15:00 23:00 07:00 Intake Total 240 ml 200 ml Balance 240 ml 200 ml medications Current Medications Medications Dose Ordered Sig/Edson Route Start Time Stop Time Status Last Admin Dose Admin Nitroglycerin 0.4 mg Q5MINP PRN SL 10/21/24 20:00 Morphine Sulfate 2 mg Q30M PRN IV 10/21/24 20:00 Clopidogrel Bisulfate 75 mg DAILY PO 10/22/24 10:00 10/25/24 12:11 75 MG Sevelamer HCl 800 mg TIDWM PO 10/22/24 08:00 10/25/24 18:54 800 MG Aspirin 81 mg DAILY PO 10/22/24 10:00 10/25/24 10:00 81 MG Atorvastatin Calcium 80 mg HS PO 10/21/24 22:00 10/25/24 22:26 80 MG Furosemide 40 mg DAILY PO 10/22/24 10:00 10/25/24 12:11 40 MG Albuterol 2.5 mg Q6HPRN PRN NEB 10/21/24 20:00 Ipratropium [place] 0.5 mg Q6HPRN PRN NEB 10/21/24 20:00 Diagnostic Test (Pha) 1 strip Q6HR 10/22/24 00:00 10/26/24 05:09 1 STRIP Insulin Human Regular Q6HR SC 10/22/24 00:00 10/25/24 23:40 2 UNITS Dextrose 50 ml UD PRN IV 10/21/24 20:00 Ondansetron HCl 4 mg Q4HP PRN IV 10/21/24 20:00 Acetaminophen 650 mg Q6HP PRN PO 10/21/24 20:00 Carvedilol 6.25 mg Q12HR PO 10/22/24 22:00 10/25/24 22:26 6.25 MG Examination: GENERAL:Normal, HEENT:Normal, NECK:Normal, LUNGS:Normal, LUNGS:Abnormal (on oxygen), CVS:Normal, ABDOMEN:Normal, MSK:Normal, SKIN:Normal, NEURO:Normal, :Normal laboratory and microbiology Laboratory Tests 10/26/24 05:24 Test 10/26/24 05:24 Range/Units Serum Glucose 116 H 74-106 mg/dL Microbiology Date/Time Source Procedure Growth Status 10/22/24 04:28 Nose MRSA Screen - Final Complete Problem List/Assessment/Plan Problem List/Assessment/Plan #1 acute on chronic systolic/diastolic heart failure: lasix iv #2 esrd: on dialysis #3 acute on chronic resp failure #4 cad s/p stent #5 s/p cabg #6 copd #7 anemia: transfuse #8 htn #9 dm: ssi #10 h/o Hep C #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
--- NOTE | 2024-10-26 17:52 | DVHPN2 ---
Progress Note - Dictate Date Seen: Oct 26, 2024 Medical Necessity Reason Pt with a Central, PICC or Fol: No Subjective No new complaints vital signs Vital Sign Date Time Temp Pulse Resp B/P (MAP) Pulse Ox O2 Delivery O2 Flow Rate FiO2 10/26/24 12:30 97.8 81 18 142/66 (91) 97 97.8 10/26/24 10:14 Nasal Cannula* 3 32 Total Intake and Output 10/25/24 10/25/24 10/26/24 15:00 23:00 07:00 Intake Total 240 ml 200 ml Balance 240 ml 200 ml medications Current Medications Medications Dose Ordered Sig/Edson Route Start Time Stop Time Status Last Admin Dose Admin Nitroglycerin 0.4 mg Q5MINP PRN SL 10/21/24 20:00 Morphine Sulfate 2 mg Q30M PRN IV 10/21/24 20:00 Clopidogrel Bisulfate 75 mg DAILY PO 10/22/24 10:00 10/26/24 10:51 75 MG Sevelamer HCl 800 mg TIDWM PO 10/22/24 08:00 10/26/24 10:51 800 MG Aspirin 81 mg DAILY PO 10/22/24 10:00 10/26/24 10:51 81 MG Atorvastatin Calcium 80 mg HS PO 10/21/24 22:00 10/25/24 22:26 80 MG Furosemide 40 mg DAILY PO 10/22/24 10:00 10/26/24 10:53 40 MG Albuterol 2.5 mg Q6HPRN PRN NEB 10/21/24 20:00 Ipratropium [place] 0.5 mg Q6HPRN PRN NEB 10/21/24 20:00 Diagnostic Test (Pha) 1 strip Q6HR 10/22/24 00:00 10/26/24 12:03 1 STRIP Insulin Human Regular Q6HR SC 10/22/24 00:00 10/26/24 12:03 4 UNITS Dextrose 50 ml UD PRN IV 10/21/24 20:00 Ondansetron HCl 4 mg Q4HP PRN IV 10/21/24 20:00 Acetaminophen 650 mg Q6HP PRN PO 10/21/24 20:00 objective objective Awake alert oriented x3 HEENT: Normocephalic, no JVD Lungs: Bilateral good air entry CVS: S1, S2 regular rate rhythm Abdomen: Soft, bowel sounds present [employer]: No focal deficits Extremities: No edema laboratory and microbiology Laboratory Tests 10/26/24 05:24 Test 10/26/24 05:24 Range/Units Serum Glucose 116 H 74-106 mg/dL Problem List End-stage kidney disease on hemodialysis, stable from renal perspective History of coronary artery disease s/p CABG Acute on chronic systolic/diastolic heart failure Acute on chronic respiratory failure Hypertension Type 2 diabetes Anemia in Chronic kidney disease History of hepatitis-C Assessment/Plan HD on MWF schedule. DC as per primary Dietary Evaluation Review Comments: 1) CCHO 60 + renal standard diet 2) Continue current plan of care Expected Outcomes/Goals: To meet >75% estimated needs Fu 3-5 days Plan discussed with: Patient HI WINTER MD Oct 26, 2024 17:52
[2024-10-26] MEDS: EPOETIN ALFA-EPBX 4,000 UNIT/ML VIAL SC ONE (21:42)
[2024-10-27] VITALS (7 sets, daily range): BP systolic 128–137; BP diastolic 61–65; PULSE 87–99; RESP 17–19; TEMP 97.3–98.7; O2SAT 95–99
[2024-10-27 07:55] LABS: Basophils # (auto) 0 10 ^3/uL (0-0.2); Eosinophils # (auto) 0.1 10 ^3/uL (0-0.8); Hemoglobin 8.7 g/dL (13.5-17.5); Lymphocytes # (auto) 0.9 10 ^3/uL (0.4-5.4); Red Cell Distribution Width 17.1 % (11.8-14.3); White Blood Cell 5.2 10^3/uL (4.4-10.8)
[2024-10-27 07:58] LABS: Basophils % (auto) 0.6 % (0.0-2.0); Eosinophils % (auto) 2.3 % (0.0-7.0); Hematocrit 25.1 % (41.0-53.0); Lymphocytes % (auto) 17.7 % (10.0-50.0); Mean Corpuscular Hemoglobin 35.5 pg (28.0-32.0); Mean Corpuscular Hgb Conc. 34.8 g/dL (32.0-36.0); Mean Corpuscular Volume 101.9 fL (80.0-100.0); Monocytes # (auto) 0.8 10 ^3/uL (0-1.3); Monocytes % (auto) 16.2 % (0.0-12.0); Neutrophils # (auto) 3.3 10 ^3/uL (1.6-8.6); Neutrophils % (auto) 63.2 % (37.0-80.0); Platelet Count (auto) 238 10^3/uL (140-450); Red Blood Cells 2.46 10^6/uL (4.5-5.90)
[2024-10-27 08:00] LABS: Chloride 101 mmol/L (98-107); Potassium 3.9 mmol/L (3.5-5.1); Sodium 139 mmol/L (136-145)
[2024-10-27 08:01] LABS: Anion Gap 8 (5-15); Carbon Dioxide 30 mmol/L (20-31)
[2024-10-27 08:06] LABS: BUN/Creatinine Ratio 4.7 (10.0-20.0); Glucose 92 mg/dL (74-106)
[2024-10-27 08:09] LABS: Blood Urea Nitrogen 31 mg/dL (9-23)
--- NOTE | 2024-10-27 09:09 | DVHPN2 ---
Consult Progress Note Date Seen: Oct 27, 2024 Subjective Patient reports: Feels better Other Systems: Notified of transient bradycardia, on Coreg Objective vital signs Vital Sign Date Time Temp Pulse Resp B/P (MAP) Pulse Ox O2 Delivery O2 Flow Rate FiO2 10/27/24 05:30 98 Nasal Cannula 2.0 10/27/24 05:30 28 10/27/24 05:00 97.3 87 17 130/61 (84) 97.3 Total Intake and Output 10/26/24 10/26/24 10/27/24 15:00 23:00 07:00 Intake Total 740 ml 300 ml Balance 740 ml 300 ml medications Current Medications Medications Dose Ordered Sig/Edson Route Start Time Stop Time Status Last Admin Dose Admin Nitroglycerin 0.4 mg Q5MINP PRN SL 10/21/24 20:00 Morphine Sulfate 2 mg Q30M PRN IV 10/21/24 20:00 Clopidogrel Bisulfate 75 mg DAILY PO 10/22/24 10:00 10/26/24 10:51 75 MG Sevelamer HCl 800 mg TIDWM PO 10/22/24 08:00 10/26/24 18:44 800 MG Aspirin 81 mg DAILY PO 10/22/24 10:00 10/26/24 10:51 81 MG Atorvastatin Calcium 80 mg HS PO 10/21/24 22:00 10/26/24 21:50 80 MG Furosemide 40 mg DAILY PO 10/22/24 10:00 10/26/24 10:53 40 MG Albuterol 2.5 mg Q6HPRN PRN NEB 10/21/24 20:00 Cancel Ipratropium [place] 0.5 mg Q6HPRN PRN NEB 10/21/24 20:00 Cancel Diagnostic Test (Pha) 1 strip Q6HR 10/22/24 00:00 10/27/24 05:33 1 STRIP Insulin Human Regular Q6HR SC 10/22/24 00:00 10/27/24 00:51 2 UNITS Dextrose 50 ml UD PRN IV 10/21/24 20:00 Ondansetron HCl 4 mg Q4HP PRN IV 10/21/24 20:00 Acetaminophen 650 mg Q6HP PRN PO 10/21/24 20:00 Examination: LUNGS:Normal, CVS:Abnormal (NSVT episodes up to 4 sec. No further bradycardic events), NEURO:Normal laboratory and microbiology Laboratory Tests 10/27/24 07:16 Test 10/27/24 07:16 Range/Units Serum Glucose 92 74-106 mg/dL Problem List/Assessment/Plan Problem List/Assessment/Plan Non ST-elevation myocardial infarction status post cardiac catheterization Severe coronary artery disease status post triple-vessel CABG and 1 MENDEZ (on ASA and Plavix) Acute on chronic decompensated HFrEF, NYHA class III Non-sustained ventricular tachycardia Hypertension Dyslipidemia COPD with home oxygen dependence End-stage renal disease on hemodialysis Acute on chronic anemia Type 2 diabetes mellitus History of tobacco use Plan/Recommendation (Dr. Cardona) * Transthoracic echocardiogram from 07/23/24 revealed EF 35-40% * Continue guideline directed medical therapy for CHF as renal function and HR permits * Initiate Entresto therapy only. BB held given transient bradycardia. Mineralcorticoid and SGLP2 inhibitor contraindicated, ESRD * Continue dual-antiplatelet therapy and lipid-lowering agent * Follow-up with Dr. Cardona as scheduled on 11/05/2024 at 1600 We will sign off at this time. Kindly call if in need to re-consult. Thank you for allowing us to care for this patient. This medical document was created using an electronic medical record system with voice recognition software and computerized dictation system. Although this document has been carefully reviewed, there might still be some phonetic and typographical errors. Occasional wrong-word or ``sound-alike substitutions may have occurred due to the inherent limitations of voice recognition software. These areas are purely typographical due to imperfections of the software programs and do not reflect any compromise in the patient's medical care. Please read the chart carefully and recognize, using context, where these substitutions have occurred. Plan discussed with: Patient, Spouse, Other Dietary Evaluation Review Comments: 1) CCHO 60 + renal standard diet 2) Continue current plan of care Expected Outcomes/Goals: To meet >75% estimated needs Fu 3-5 days Date of Service: Oct 27, 2024 Billing Provider: MARYANNE ADAMS Cardiology Common Codes: [id number] INP/OBS CARE(Mod) MARYANNE ADAMS Oct 27, 2024 09:09
[2024-10-27] MEDS: SACUBITRIL-VALSARTAN 24mg/26mg TAB PO SCH (10:37)
--- NOTE | 2024-10-27 11:10 | DVHDS2 ---
Discharge Summary Date of Admission Oct 21, 2024 at 19:49 Date of Discharge: Oct 27, 2024 Labs/Diagnostic Data: Laboratory Results Test 10/27/24 07:16 10/27/24 05:18 10/26/24 05:24 10/23/24 05:30 White Blood Count 5.2 10^3/uL (4.4-10.8) Red Blood Count 2.46 10^6/uL (4.5-5.90) Hemoglobin 8.7 g/dL (13.5-17.5) Hematocrit 25.1 % (41.0-53.0) Mean Corpuscular Volume 101.9 fL (80.0-100.0) Mean Corpuscular Hemoglobin 35.5 pg (28.0-32.0) Mean Corpuscular Hemoglobin Concent 34.8 g/dL (32.0-36.0) Red Cell Distribution Width 17.1 % (11.8-14.3) Platelet Count 238 10^3/uL (140-450) Mean Platelet Volume 6.9 fL (6.9-10.8) Neutrophils (%) (Auto) 63.2 % (37.0-80.0) Lymphocytes (%) (Auto) 17.7 % (10.0-50.0) Monocytes (%) (Auto) 16.2 % (0.0-12.0) Eosinophils (%) (Auto) 2.3 % (0.0-7.0) Basophils (%) (Auto) 0.6 % (0.0-2.0) Neutrophils # (Auto) 3.3 10 ^3/uL (1.6-8.6) Lymphocytes # (Auto) 0.9 10 ^3/uL (0.4-5.4) Monocytes # (Auto) 0.8 10 ^3/uL (0-1.3) Eosinophils # (Auto) 0.1 10 ^3/uL (0-0.8) Basophils # (Auto) 0 10 ^3/uL (0-0.2) Nucleated Red Blood Cells 0.0 % Sodium Level 139 mmol/L (136-145) Potassium Level 3.9 mmol/L (3.5-5.1) Chloride Level 101 mmol/L (98-107) Carbon Dioxide Level 30 mmol/L (20-31) Anion Gap 8 (5-15) Blood Urea Nitrogen 31 mg/dL (9-23) Creatinine 6.61 mg/dL (0.700-1.30) Glomerular Filtration Rate Calc 8 mL/min (>90) BUN/Creatinine Ratio 4.7 (10.0-20.0) Serum Glucose 92 mg/dL (74-106) Calcium Level 10.0 mg/dL (8.7-10.4) POC Glucose 119 mg/dl (70-106) Total Bilirubin 0.2 mg/dL (0.2-1.0) Aspartate Amino Transferase (AST) 13 U/L (13-40) Alanine Aminotransferase (ALT) 23 U/L (7-40) Alkaline Phosphatase 87 U/L (46-116) Total Protein 6.7 g/dL (5.7-8.2) Albumin 3.5 g/dL (3.2-4.8) Prothrombin Time 11.9 sec (9.3-11.8) Prothrombin Time INR 1.14 (0.9-1.15) Activated Partial Thromboplast Time 27.9 SEC (24.5-34.5) Test 10/22/24 18:04 10/22/24 11:25 10/21/24 19:53 10/21/24 16:43 Hepatitis A IgM Antibody Negative Hepatitis B Surface Antigen Negative (Negative) Hepatitis B Core IgM Antibody Negative (Negative) Hepatitis C Antibody Reactive (Negative) Urine Color Light-yellow (Yellow) Urine Clarity Clear (Clear) Urine pH 8.0 (5.0-9.0) Urine Specific [place] 1.011 (1.001-1.035) Urine Protein 2+ (Negative) Urine Ketones Negative (Negative) Urine Blood Negative /uL (Negative) Urine Nitrite Negative (Negative) Urine Bilirubin Negative (Negative) Urine Urobilinogen Normal mg/dL (Negative) Urine Leukocyte Esterase 1+ /uL (Negative) Urine RBC 3 /hpf (0 - 3) Urine Microscopic WBC 39 /HPF (0-3) Urine Squamous Epithelial Cells Few /hpf (<5) Urine Bacteria Few /hpf (None Seen) Urine Glucose 2+ mg/dL (Normal) Troponin I High Sensitivity 208 ng/L (</=54) Lactic Acid Level 1.1 mmol/L (0.4-2.0) Magnesium Level 3.3 mg/dL (1.6-2.6) B-Type Natriuretic Peptide > 5000.00 pg/mL (0-100) Other Laboratory Tests 10/27/24 07:16 Brief Hx & Hospital Course: SEE DICTATED NOTE Condition at Discharge: Fair Final Diagnosis/Problems List CHF Discharge Disposition: Home Discharge Instruct/Medications Diet: Renal Activity: No Restrictions, As Tolerated Follow Up/Referral: FU WITH PCP/DIALYSIS Medications: RESUME HOME MEDS Discharge Statement: "Patient was advised to return to the ER or call 911 if any headaches, dizziness, shortness of breath, chest pain, abdominal pain, bleeding, fevers, or worsening of medical condition. Patient was counseled about treatment plan, medications, possible side effects, patientverbalized understanding. All questions were answered to the best of my ability. This discharge took greater then 30 minutes in planning, reviewing documentation, counseling the patient, and discussing with other team members." ASSESSMENT ASSESSMENT Assessment CHF Date of Service: Oct 27, 2024 Billing Provider: CRAIG NAZARIO MD Common Visit Codes: 07372-FCF/OBS DISCH DAY >30min CRAIG NAZARIO MD Oct 27, 2024 11:10
--- NOTE | 2024-10-27 11:35 | DVHDS ---
DATE OF DISCHARGE: 10/27/2024 The patient is a 74-year-old gentleman who was admitted with history of shortness of breath and chest discomfort and has history of end-stage renal disease on hemodialysis, previous CABG, COPD, chronic respiratory failure, hypertension, and congestive heart failure. HOSPITAL COURSE: The patient had a chest x-ray that showed evidence of congestive heart failure. He was seen in Nephrology consult by Dr. Dueñas and continued on hemodialysis. The patient had elevated troponin levels. He was seen in Cardiology consult by Dr. Cardona. The patient underwent coronary angiography that showed normal left ventricular end-diastolic pressure with decreased ejection fraction of 30% and patent graft. The patient was anemic for which he was transfused blood. Hemoglobin at time of discharge is 8.7. He will now be discharged home to resume his home medications and follow up with his primary and with the dialysis clinic. FINAL DIAGNOSES: * Sbhxz-[id number] systolic heart failure. * End-stage renal disease, on hemodialysis. * Ograd-ei-remjabx respiratory failure. * Coronary artery disease with previous stent. * History of coronary artery bypass graft. * Chronic obstructive pulmonary disease. * Anemia, status post transfusion. * Hypertension. * Diabetes mellitus. * History of hepatitis C. * [id number] myocardial infarction, status post coronary angiography. MD DARIN Leyva/GREER TID: [id number] RECEIPT: [id number]
--- NOTE | 2024-10-27 12:29 | DVHPN2 ---
Progress Note - Dictate Date Seen: Oct 27, 2024 Medical Necessity Reason Pt with a Central, PICC or Fol: No Subjective Feels much better vital signs Vital Sign Date Time Temp Pulse Resp B/P (MAP) Pulse Ox O2 Delivery O2 Flow Rate FiO2 10/27/24 10:37 137/65 10/27/24 10:05 99 Nasal Cannula 2.0 10/27/24 10:05 28 10/27/24 09:00 98.4 89 18 98.4 Total Intake and Output 10/26/24 10/26/24 10/27/24 15:00 23:00 07:00 Intake Total 740 ml 300 ml Balance 740 ml 300 ml medications Current Medications Medications Dose Ordered Sig/Edson Route Start Time Stop Time Status Last Admin Dose Admin Nitroglycerin 0.4 mg Q5MINP PRN SL 10/21/24 20:00 Morphine Sulfate 2 mg Q30M PRN IV 10/21/24 20:00 Clopidogrel Bisulfate 75 mg DAILY PO 10/22/24 10:00 10/27/24 10:37 75 MG Sevelamer HCl 800 mg TIDWM PO 10/22/24 08:00 10/27/24 12:17 800 MG Aspirin 81 mg DAILY PO 10/22/24 10:00 10/27/24 10:38 81 MG Atorvastatin Calcium 80 mg HS PO 10/21/24 22:00 10/26/24 21:50 80 MG Furosemide 40 mg DAILY PO 10/22/24 10:00 10/27/24 10:37 40 MG Albuterol 2.5 mg Q6HPRN PRN NEB 10/21/24 20:00 Cancel Ipratropium [place]y 0.5 mg Q6HPRN PRN NEB 10/21/24 20:00 Cancel Diagnostic Test (Pha) 1 strip Q6HR 10/22/24 00:00 10/27/24 12:18 1 STRIP Insulin Human Regular Q6HR SC 10/22/24 00:00 10/27/24 00:51 2 UNITS Dextrose 50 ml UD PRN IV 10/21/24 20:00 Ondansetron HCl 4 mg Q4HP PRN IV 10/21/24 20:00 Acetaminophen 650 mg Q6HP PRN PO 10/21/24 20:00 Sacubitril/ Valsartan 1 tab BID PO 10/27/24 10:00 10/27/24 10:37 1 TAB objective objective Awake alert oriented x3 HEENT: Normocephalic, no JVD Lungs: Bilateral good air entry CVS: S1, S2 regular rate rhythm Abdomen: Soft, bowel sounds present KNOCKER OUT: No focal deficits Extremities: No edema laboratory and microbiology Laboratory Tests 10/27/24 07:16 Test 10/27/24 07:16 Range/Units Serum Glucose 92 74-106 mg/dL Problem List End-stage kidney disease on hemodialysis, stable from renal perspective History of coronary artery disease s/p CABG Acute on chronic systolic/diastolic heart failure Acute on chronic respiratory failure Hypertension Type 2 diabetes Anemia in Chronic kidney disease History of hepatitis-C Assessment/Plan HD on MWF schedule. Next HD as outpatient DC home today Dietary Evaluation Review Comments: 1) CCHO 60 + renal standard diet 2) Continue current plan of care Expected Outcomes/Goals: To meet >75% estimated needs Fu 3-5 days Plan discussed with: Patient HI WINTER MD Oct 27, 2024 12:29
== END 2024-10-27 16:30 | disposition home or self-care (01) | DRG 280 ==
LOC: ER 16:13 → OVERFLOW 19:49 → TELE-WESTW 10-22 03:05
PROVIDERS: ADMIT Internal Medicine; ATTEND Internal Medicine
PROC: 5A1D70Z Performance of Urinary Filtration, Intermittent, Less than 6 Hours Per Day (ICD-10-PCS; principal; 2024-10-22)
PROC: 5A1D70Z Performance of Urinary Filtration, Intermittent, Less than 6 Hours Per Day (ICD-10-PCS; 2024-10-23)
PROC: 4A023N7 Measurement of Cardiac Sampling and Pressure, Left Heart, Percutaneous Approach (ICD-10-PCS; 2024-10-23)
PROC: B211YZZ Fluoroscopy of Multiple Coronary Arteries using Other Contrast (ICD-10-PCS; 2024-10-23)
PROC: B212YZZ Fluoroscopy of Single Coronary Artery Bypass Graft using Other Contrast (ICD-10-PCS; 2024-10-23)
PROC: B218YZZ Fluoroscopy of Left Internal Mammary Bypass Graft using Other Contrast (ICD-10-PCS; 2024-10-23)
PROC: B215YZZ Fluoroscopy of Left Heart using Other Contrast (ICD-10-PCS; 2024-10-23)
PROC: 5A1D70Z Performance of Urinary Filtration, Intermittent, Less than 6 Hours Per Day (ICD-10-PCS; 2024-10-25)
PROC: 30233N1 Transfusion of Nonautologous Red Blood Cells into Peripheral Vein, Percutaneous Approach (ICD-10-PCS; 2024-10-26)
DX: I13.2 Hypertensive heart and chronic kidney disease with heart failure and with stage 5 chronic kidney disease, or end stage renal disease (principal); I50.23 Acute on chronic systolic (congestive) heart failure; I21.4 Non-ST elevation (NSTEMI) myocardial infarction; J96.20 Acute and chronic respiratory failure, unspecified whether with hypoxia or hypercapnia; N18.6 End stage renal disease; I42.9 Cardiomyopathy, unspecified; D63.1 Anemia in chronic kidney disease; J44.9 Chronic obstructive pulmonary disease, unspecified; I95.9 Hypotension, unspecified; E11.22 Type 2 diabetes mellitus with diabetic chronic kidney disease; I25.10 Atherosclerotic heart disease of native coronary artery without angina pectoris; E78.5 Hyperlipidemia, unspecified; N40.0 Benign prostatic hyperplasia without lower urinary tract symptoms; Z99.81 Dependence on supplemental oxygen; Z95.5 Presence of coronary angioplasty implant and graft; Z95.1 Presence of aortocoronary bypass graft; Z87.891 Personal history of nicotine dependence; Z99.2 Dependence on renal dialysis; Z79.82 Long term (current) use of aspirin; Z79.899 Other long term (current) drug therapy
CPT/HCPCS: 36415; 71045; 80048; 80053; 80074; 81001; 82962; 83605; 83735; 83880; 84484; 85014; 85018; 85025; 85610; 85730; 86850; 86900; 86901; 86920; 87081; 90935; 93005; 93459; 94640; 96374; 97163; 99152; 99291; G0378; J1815; J2250; Q9967

== ENCOUNTER 2024-10-27 19:41 | Inpatient (IN) | payer MEDICARE, MEDICAID ==
[~2024-10-27] VITALS: Ht 177.8 cm; Wt 77.7 kg
[~2024-10-27 19:41] MED LIST changes: +ATOR40TA52 PO; +CLOP75TA70 PO; +ISOS1TAB28 PO; -MAGN400T40 PO; +MAGN400T6 PO; +MELO15TA29 PO; +NIFE90TA75 PO; +NITR0.4S29 PO; +RANO500T3 PO; -TAMS0.4C39 PO
--- NOTE | 2024-10-27 19:52 | ED.PDOC ---
HPI Comments 74-year-old male brought in by EMS for chief complaint of chest pain. Per EMS, lara complains of substernal chest pain and within 5 minutes, gave patient 1 SL Nitro. Lara then had a seizure. Upon EMS arrival, patient was unresponsive and was in V-Tach. When lara was put into the EMS gurney, patient self converted to sinus remedios. Patient is currently NSR at 86 BPM. Patient is A&Ox4 at this time and is no longer complaining of chest pain. Time Seen by MD: 19:50 Primary Care Provider: ? Reviewed Notes: Medications, Allergies Allergies: Coded Allergies: NO KNOWN ALLERGIES (Unverified , 01/05/24) Home Meds Active Scripts Sacubitril-Valsartan (Entresto 24-26 mg) 1 Tab Tab, 1 TAB PO BID for 30 Days, #60 TAB 1 Refill Prov:TESHA CARR RESIDENT 09/02/24 Clopidogrel Bisulfate (Plavix) 75 Mg Tab, 1 TAB PO DAILY for 30 Days, #30 TAB 1 Refill Prov:TESHA CARR RESIDENT 09/02/24 Reported Medications Furosemide (Furosemide) 40 Mg Tab, 1 TAB PO DAILY 01/07/24 Ergocalciferol (Vitamin D) 50,000 Unit Cap, 1 CAP PO QWEEKLY 01/07/24 Omeprazole (Omeprazole Dr) 40 Mg Cap, 1 CAP PO DAILY 01/07/24 Aspirin (Aspirin Low Dose) 81 Mg Chw, 1 TAB PO DAILY 01/07/24 Sevelamer Carbonate (Renvela) 800 Mg Tab, 2 TAB PO TID 01/07/24 Atorvastatin Calcium (Lipitor) 80 Mg Tab, 1 TAB PO DAILY 01/07/24 Carvedilol (Carvedilol) 25 Mg Tab, 1 TAB PO BID 01/07/24 Oxycodone HCl (Oxycodone Hydrochloride) 15 Mg Tab, 1 TAB PO QID 01/07/24 Discontinued Reported Medications Tamsulosin Hcl (Tamsulosin Hcl) 0.4 Mg Cap, 2 CAP PO DAILY 01/07/24 Magnesium Oxide (MAGNESIUM OXIDE) 400 Mg Tab, 1 TAB PO DAILY 01/07/24 Information Source: Emergency Med Personnel Mode of Arrival: EMS Severity: Moderate Timing: Minutes Duration: Since onset Prehospital treatment: 12 Lead EKG, Clipper Machine, NTG, Oxygen Location: Substernal Radiation: No Radiation Quality: Pressure Onset: At Rest Cardiac Risk Factors: HTN, Diabetes PE Risk Factors: None History of: Similar pain in past Past Medical History PAST MEDICAL HISTORY: CAD, CHF, COPD, DM, ESRD, HTN Surgical History: CABG, PTCA Family History Family History: Reviewed,noncontributory to illness Social History Smoker: Non-Smoker Alcohol: Occasionally Drugs: Denies Drug Use Lives In: Home Constitutional: denies: chills, diaphoresis, fatigue, fever, malaise, sweats, weakness, others EENTM: denies: blurred vision, double vision, ear bleeding, ear discharge, ear drainage, ear pain, ear ringing, eye pain, eye redness, hearing loss, mouth pain, mouth swelling, nasal discharge, nose bleeding, nose congestion, nose pain, photophobia, tearing, throat pain, throat swelling, voice changes, others Respiratory: reports: shortness of breath; denies: cough, hemoptysis, orthopnea, SOB at rest, SOB with excertion, stridor, wheezing, others Cardiovascular: reports: chest pain; denies: dizzy spells, diaphoresis, Dyspnea on exertion, edema, irregular heart beat, left arm pain, lightheadedness, palpitations, PND, syncope, others Gastrointestinal: denies: abdomen distended, abdominal pain, blood streaked bowels, constipated, diarrhea, dysphagia, difficulty swallowing, hematemesis, melena, nausea, poor appetite, poor fluid intake, rectal bleeding, rectal pain, vomiting, others Genitourinary: denies: burning, dysuria, flank pain, frequency, hematuria, incontinence, penile discharge, penile sore, pain, testicle pain, testicle swelling, urgency, others Neurological: reports: seizure; denies: dizziness, fainting, headache, left sided numbness, left sided weakness, numbness, paresthesia, pre-existing deficit, right sided numbness, right sided weakness, speech problems, tingling, tremors, weakness, others Musculoskeletal: denies: back pain, gout, joint pain, joint swelling, muscle pain, muscle stiffness, neck pain, others Integumetry: denies: bruises, change in color, change in hair/nails, dryness, laceration, lesions, lumps, rash, wounds, others Allergic/Immunocompromised: denies: Difficulty Healing, Frequent Infections, Hives, Itching, others Hematologic/Lymphatic: denies: anemia, blood clots, easy bleeding, easy bruising, swollen glands, others Endocrine: denies: excessive hunger, excessive sweating, excessive thirst, excessive urination, flushing, intolerance to cold, intolerance to heat, unexplained weight gain, unexplained weight loss, others Psychiatric: denies: anxiety, bipolar disorder, depression, hopeless, panic disorder, schizophrenia, sleepless, suicidal, others All Other Systems: Reviewed and Negative Physical Exam General Appearance: Moderate Distress, Normal HEENT: Other Neck: NOT DONE Respiratory: Chest Non-Tender, Lungs Clear, No Accessory Muscle Use, No Respiratory Distress, Normal Breath Sounds Cardiovascular: No Edema, No JVD, No Murmur, No Gallop, Normal Peripheral Pulses, Regular Rate/Rhythm Breast Exam: Deferred Gastrointestinal: No Organomegaly, Non Tender, No Pulsatile Mass, Normal Bowel Sounds, Soft Genitalia: Deferred Pelvic: Deferred Rectal: Deferred Extremities: No calf tenderness, Normal capillary refill, Normal inspection, Normal range of motion, Non-tender, No pedal edema Musculoskeletal : Apperance: Normal Neurologic: Alert, emissions repair technician II-XII nml as Tested, No Motor Deficits, Normal Affect, Normal Mood, No Sensory Deficits Cerebellar Function: Normal Reflexes: Normal Skin: Dry, Normal Color, Warm Lymphatic: No Adenopathy Was a procedure done? Was a procedure done?: No CP Differential Dx Differential Diagnosis: MAT, MS, PAC's Differential Diagnosis: HTN Essential, HTN Accelerated Differential Diagnosis: Gastritis, Myocardial Infarction, Pericarditis X-Ray, Labs, Meds, VS Vital Signs Date Time Temp Pulse Resp B/P (MAP) Pulse Ox O2 Delivery O2 Flow Rate FiO2 10/27/24 23:00 83 10/27/24 20:40 88 10/27/24 19:57 98.8 86 18 120/76 (91) 100 98.8 10/27/24 19:45 98.8 85 12 106/58 (74) 100 98.8 10/27/24 19:45 85 Lab Test 10/27/24 23:07 10/27/24 21:08 10/27/24 20:00 Range/Units Troponin I High Sensitivity 463 *H 179 *H 155 *H </=54 ng/L White Blood Count 5.3 4.4-10.8 10^3/uL Red Blood Count 2.68 L 4.5-5.90 10^6/uL Hemoglobin 8.9 L 13.5-17.5 g/dL Hematocrit 26.4 L 41.0-53.0 % Mean Corpuscular Volume 98.2 80.0-100.0 fL Mean Corpuscular Hemoglobin 33.1 H 28.0-32.0 pg Mean Corpuscular Hemoglobin Concent 33.7 32.0-36.0 g/dL Red Cell Distribution Width 17.7 H 11.8-14.3 % Platelet Count 261 140-450 10^3/uL Mean Platelet Volume 6.8 L 6.9-10.8 fL Neutrophils (%) (Auto) 65.1 37.0-80.0 % Lymphocytes (%) (Auto) 17.7 10.0-50.0 % Monocytes (%) (Auto) 14.6 H 0.0-12.0 % Eosinophils (%) (Auto) 2.1 0.0-7.0 % Basophils (%) (Auto) 0.5 0.0-2.0 % Neutrophils # (Auto) 3.5 1.6-8.6 10 ^3/uL Lymphocytes # (Auto) 0.9 0.4-5.4 10 ^3/uL Monocytes # (Auto) 0.8 0-1.3 10 ^3/uL Eosinophils # (Auto) 0.1 0-0.8 10 ^3/uL Basophils # (Auto) 0 0-0.2 10 ^3/uL Nucleated Red Blood Cells 0.0 % Sodium Level 139 136-145 mmol/L Potassium Level 4.2 3.5-5.1 mmol/L Chloride Level 101 98-107 mmol/L Carbon Dioxide Level 26 20-31 mmol/L Anion Gap 12 5-15 Blood Urea Nitrogen 39 H 9-23 mg/dL Creatinine 7.83 H 0.700-1.30 mg/dL Glomerular Filtration Rate Calc 7 >90 mL/min BUN/Creatinine Ratio 5.0 L 10.0-20.0 Serum Glucose 196 #H 74-106 mg/dL Calcium Level 10.1 8.7-10.4 mg/dL B-Type Natriuretic Peptide > 5000.00 0-100 pg/mL Time of 1ST Reevaluation: 20:20 Reevaluation 1ST: Unchanged Patient Education/Counseling: Diagnosis, Treatment, Prognosis Family Education/Counseling: No Family Present Departure 1 Departure Time of Disposition: 00:09 (Patient presented with chest pain that was concerning for possible STEMI, ACS, PE, Pneumonia, Muscle Strain, COPD, Dissecti on. Data: 1. I ordered and reviewed the result of at least 3 labs including a CBC, BMP, and Troponin. 2. I independently interpreted the following tests: EKG which shows sinus arrhythmia and Chest X-ray which shows benign chest.Risk:This patient has a high risk of morbidity due to further diagnostic testing or treatment and may suffer from an acute cardiac or respiratory disorder. Workup reveals concern for ACS and patient should be admitted for further workup and possible expert consultation. ) Impression: Primary Impression: Acute chest pain Additional Impressions: Ventricular tachycardia Seizure Generalized weakness Disposition: 09 ADMITTED INPATIENT Admit to: Med Surg Condition: Serious Critical Care Note Critical Care Time?: No Stability Stability form required: No Heart Score Heart Score: Heart Score Response (Comments) Value History Moderate Suspicious 1 EKG Repolarization Disturb 1 Age >65 2 Risk Factors >3 or Hx ASHD 2 Troponin >3 x's Normal limit 2 Total 8 I personally scribed for KANG CHAVIRA MD ([email or web address]) on 10/27/24 at 19:52. Electronically submitted by Kalen Burgess ([email or web address]). I personally scribed for KANG CHAVIRA MD ([email or web address]) on 10/27/24 at 20:11. Electronically submitted by Kalen Burgess ([email or web address]). KANG CHAVIRA MD Oct 27, 2024 19:52
[2024-10-27 20:08] LABS: Basophils # (auto) 0 10 ^3/uL (0-0.2); Basophils % (auto) 0.5 % (0.0-2.0); Eosinophils # (auto) 0.1 10 ^3/uL (0-0.8); Eosinophils % (auto) 2.1 % (0.0-7.0); Hematocrit 26.4 % (41.0-53.0); Hemoglobin 8.9 g/dL (13.5-17.5); Lymphocytes # (auto) 0.9 10 ^3/uL (0.4-5.4); Lymphocytes % (auto) 17.7 % (10.0-50.0); Mean Corpuscular Hemoglobin 33.1 pg (28.0-32.0); Mean Corpuscular Hgb Conc. 33.7 g/dL (32.0-36.0); Mean Corpuscular Volume 98.2 fL (80.0-100.0); Monocytes # (auto) 0.8 10 ^3/uL (0-1.3); Monocytes % (auto) 14.6 % (0.0-12.0); Neutrophils # (auto) 3.5 10 ^3/uL (1.6-8.6); Neutrophils % (auto) 65.1 % (37.0-80.0); Platelet Count (auto) 261 10^3/uL (140-450); Red Blood Cells 2.68 10^6/uL (4.5-5.90); Red Cell Distribution Width 17.7 % (11.8-14.3); White Blood Cell 5.3 10^3/uL (4.4-10.8)
[2024-10-27 20:24] LABS: Chloride 101 mmol/L (98-107); Potassium 4.2 mmol/L (3.5-5.1); Sodium 139 mmol/L (136-145)
[2024-10-27 20:26] LABS: Anion Gap 12 (5-15); Calcium 10.1 mg/dL (8.7-10.4); Carbon Dioxide 26 mmol/L (20-31)
[2024-10-27 20:33] LABS: Blood Urea Nitrogen 39 mg/dL (9-23); Glucose 196 mg/dL (74-106)
--- NOTE | 2024-10-27 23:03 | DVH ---
CHEST RADIOGRAPH Indication: sob Technique: Single frontal view of the chest was obtained Comparison: XY CHEST PORTABLE on DOS: 10/21/24, XY CHEST PORTABLE on DOS: 08/31/24, XY CHEST XRAY 1 VIE W on DOS: 03/24/24 Findings/ IMPRESSION: Low lung volumes. Status post CABG. Small left-sided pleural effusion with superimposed infection n ot excluded. Mild pulmonary edema.
[2024-10-28 00:09] VITALS: PULSE 85; RESP 12; O2SAT 100
--- NOTE | 2024-10-28 00:30 | DVH ---
CT HEAD WITHOUT CONTRAST INDICATION: syncope, COMPARISON: None TECHNIQUE: CT of the head without intravenous contrast. RADIATION DOSE: CTDIvol: 61.26 mGy, DLP: 981.9 mGy*cm FINDINGS: There is no evidence of intracranial hemorrhage, infarct, extra-axial collection, mass effect, midli ne shift, herniation or hydrocephalus. Mild ventricular and sulcal enlargement related to mild cerebr al volume loss. The vasquez-white differentiation is intact. Visualized paranasal sinuses and mastoid ai r cells are clear. Soft tissues and osseous structures are unremarkable. IMPRESSION: No intracranial abnormality identified.
[2024-10-28] MEDS ORDERED: NITROGLYCERIN 0.4 MG SL TAB SL PRN (00:45)
[2024-10-28] MEDS ORDERED: DEXTROSE (50%) 50ML SYRG IV PRN (00:45)
[2024-10-28] MEDS ORDERED: MORPHINE SULFATE INJ 2 MG/ml SYRG IV PRN (00:45)
[2024-10-28] MEDS ORDERED: ONDANSETRON HCL 4 MG/2 ML VIAL IV PRN (00:45)
--- NOTE | 2024-10-28 04:17 | DVHHP2 ---
History of Present Illness Reason for Visit: Chest pain History of Present Illness 74-year-old male presents for evaluation of chest pain. Patient reports being discharged yesterday after being admitted and treated for CHF exacerbation. He states when he got home he developed tremors with associated chest pain or shortness for breath. In route patient was noted to be unresponsive and in V- tach. Patient self converted to sinus rhythm. Currently he is alert and oriented. Reports mild chest pain and shortness for breath. Past Medical History End-stage renal disease, COPD, diabetes mellitus, hypertension, CHF, CAD Past Surgical History CABG, PTCA, dialysis access Family History Noncontributory Smoke: No ALCOHOL: occassional Drugs: None Lives: with Family Review of Systems Review of Systems Review of systems are currently negative otherwise addressed in HPI. Allergies: Coded Allergies: NO KNOWN ALLERGIES (Unverified , 01/05/24) Medications Current Medications Medications Dose Ordered Sig/Edson Route Start Time Stop Time Status Last Admin Dose Admin Aspirin 81 mg DAILY PO 10/28/24 10:00 Clopidogrel Bisulfate 75 mg DAILY PO 10/28/24 10:00 Atorvastatin Calcium 80 mg HS PO 10/28/24 22:00 Carvedilol 25 mg Q12HR PO 10/28/24 10:00 Furosemide 40 mg DAILY PO 10/28/24 10:00 Sacubitril/ Valsartan 1 tab BID PO 10/28/24 10:00 Sevelamer HCl 800 mg TIDWM PO 10/28/24 08:00 Diagnostic Test (Pha) 1 strip ACHS 10/28/24 07:00 Insulin Human Regular ACHS SC 10/28/24 07:00 Dextrose 50 ml UD PRN IV 10/28/24 00:45 Ondansetron HCl 4 mg Q4HP PRN IV 10/28/24 00:45 Acetaminophen 650 mg Q6HP PRN PO 10/28/24 00:45 Nitroglycerin 0.4 mg Q5MINP PRN SL 10/28/24 00:45 Morphine Sulfate 2 mg Q30M PRN IV 10/28/24 00:45 Exam Vital Signs Vital Signs Date Time Temp Pulse Resp B/P (MAP) Pulse Ox O2 Delivery O2 Flow Rate FiO2 10/28/24 02:00 82 16 136/60 (85) 99 10/28/24 00:09 Non-Rebreather 15 N/A 10/27/24 19:57 98.8 98.8 Exam Gen: 74-year-old male in mild distress Skin: Warm, dry, normal color and texture, no rash. HEENT: Normocephalic atraumatic, mucous membranes moist and pink. Neck: Cervical and supraclavicular nodes normal without enlargement, trachea is midline, thyroid gland is normal without masses. Pulmonary: Diminished breath sounds bilaterally Cardiac: Regular rate and rhythm. No murmur Abdomen: Soft, nontender, nondistended, bowel sounds present all 4 quadrants, no guarding, no rigidity, no organomegaly. Extremities: No cyanosis, clubbing, no edema Neuro: Cranial nerves II through XII grossly intact, normal affect and speech, no focal motor deficits. Labs/Xrays ORDERING PHYSICIAN: CHARANJIT CHIU Sr., MD PROCEDURE(s): ECIDC - ECHO 2D MODE CARDIAC DOP REASON: I25.810 ORDER NUMBER(s): [id number], ACCESSION NUMBER(s): [id number] APPROVED REPORT EXAM: Two-dimensional and M-mode echocardiogram with Doppler and color Doppler. INDICATION CAD BRIEF HISTORY CAD RISK FACTORS Height: 69, Weight: 163 Diabetes DIMENSIONS LVDd 4.7 (3.8-5.7cm) LA (2D) 4.3 (1.9-4.0cm) Aortic Root 3.3 (2.0- 3.7cm) LVDs 4.1 (2.5-4.0cm) LA (MM) (1.9-4.0cm) Aortic Cusp Exc 0.9 (1.5- 2.0cm) EF (%) 35.0 (55-70%) Rt. Atrium 4.8 (1.9-4.0cm) Asc. Aorta cm IVSd 1.2 (0.7-1.1cm) RV (D) (1.8-2.4cm) PWd 1.2 (0.7-1.1cm) Mitral Valve Mitral Mitral Stenosis E wave 1.03m/s MV Mean GR. mmHg A wave 0.86m/s MV Peak GR. 80mmHg E/A ratio 1.2 2D MVA cm2 DECEL Time 206ms PRESS 1/2 Time ms Aortic Valve Aortic Valve Aortic Stenosis V1 0.97m/s AO Mean GR. 6mmHg V2 1.62m/s AO Peak GR. 11mmHg LVOT Diameter 2.0 (1.8-2.4cm) Doppler BETTY 1.88cm2 Pulmonic Valve V2 0.87m/s Tricuspid Valve TR Velocity 2.24m/s LEFT VENTRICLE The left ventricle is of normal size. There is mild concentric left ventricular hypertrophy. Ejection fraction is estimated at 35-40%. There is severe hypokinesis of the posterior wall. There is grade II diastolic dysfunction. E to E prime ratio is more than 15 suggestive of left-sided filling pressure. RIGHT VENTRICLE The right ventricle is moderately dilated in size. Right ventricular systolic function is mildly decreased. ATRIA Both atria are moderately dilated in size. Likely normal. MITRAL VALVE The mitral valve is of normal structure and function. There is mild mitral regurgitation. PULMONIC VALVE Likely normal. TRICUSPID VALVE Normal in structure and function. There is mild tricuspid regurgitation. PA systolic pressure is not adequately estimated. AORTIC VALVE Trileaflet in morphology. Leaflets are mildly calcified. No significant stenosis or regurgitation. GREAT VESSELS The aortic root is of normal size. PERICARDIAL EFFUSION There is no significant pericardial effusion. IVC is of normal size. Conclusion Normal left ventricular size with an ejection fraction of 35-40%. Severe hypokinesis of the posterior wall. Moderately dilated right ventricle with mildly decreased systolic function. Grade II diastolic dysfunction with evidence of elevated left-sided filling pressure. No hemodynamically significant valvular disease. No significant pericardial effusion. PA systolic pressure is not adequately estimated. SIGNED BY: LOUIS LEWIS MD ORDERING PHYSICIAN: KANG CHAVIRA MD PROCEDURE(s): CXRP - CHEST PORTABLE REASON: sob ORDER NUMBER(s): [id number], ACCESSION NUMBER(s): [id number] CHEST RADIOGRAPH Indication: sob Technique: Single frontal view of the chest was obtained Comparison: XY CHEST PORTABLE on DOS: 10/21/24, XY CHEST PORTABLE on DOS: 08/31/24, XY CHEST XRAY 1 VIEW on DOS: 03/24/24 Findings/ IMPRESSION: Low lung volumes. Status post CABG. Small left-sided pleural effusion with superimposed infection not excluded. Mild pulmonary edema. RING PHYSICIAN: KANG CHAVIRA MD PROCEDURE(s): HWOCT - HEAD WITHOUT CONTRAST REASON: syncope, ORDER NUMBER(s): [id number], ACCESSION NUMBER(s): [id number] CT HEAD WITHOUT CONTRAST INDICATION: syncope, COMPARISON: None TECHNIQUE: CT of the head without intravenous contrast. RADIATION DOSE: CTDIvol: 61.26 mGy, DLP: 981.9 mGy*cm FINDINGS: There is no evidence of intracranial hemorrhage, infarct, extra-axial collection, mass effect, midline shift, herniation or hydrocephalus. Mild ventricular and sulcal enlargement related to mild cerebral volume loss. The vasquez-white differentiation is intact. Visualized paranasal sinuses and mastoid air cells are clear. Soft tissues and osseous structures are unremarkable. IMPRESSION: No intracranial abnormality identified. Labs Test 10/27/24 23:07 10/27/24 20:00 Range/Units Troponin I High Sensitivity 463 *H </=54 ng/L White Blood Count 5.3 4.4-10.8 10^3/uL Red Blood Count 2.68 L 4.5-5.90 10^6/uL Hemoglobin 8.9 L 13.5-17.5 g/dL Hematocrit 26.4 L 41.0-53.0 % Mean Corpuscular Volume 98.2 80.0-100.0 fL Mean Corpuscular Hemoglobin 33.1 H 28.0-32.0 pg Mean Corpuscular Hemoglobin Concent 33.7 32.0-36.0 g/dL Red Cell Distribution Width 17.7 H 11.8-14.3 % Platelet Count 261 140-450 10^3/uL Mean Platelet Volume 6.8 L 6.9-10.8 fL Neutrophils (%) (Auto) 65.1 37.0-80.0 % Lymphocytes (%) (Auto) 17.7 10.0-50.0 % Monocytes (%) (Auto) 14.6 H 0.0-12.0 % Eosinophils (%) (Auto) 2.1 0.0-7.0 % Basophils (%) (Auto) 0.5 0.0-2.0 % Neutrophils # (Auto) 3.5 1.6-8.6 10 ^3/uL Lymphocytes # (Auto) 0.9 0.4-5.4 10 ^3/uL Monocytes # (Auto) 0.8 0-1.3 10 ^3/uL Eosinophils # (Auto) 0.1 0-0.8 10 ^3/uL Basophils # (Auto) 0 0-0.2 10 ^3/uL Nucleated Red Blood Cells 0.0 % Sodium Level 139 136-145 mmol/L Potassium Level 4.2 3.5-5.1 mmol/L Chloride Level 101 98-107 mmol/L Carbon Dioxide Level 26 20-31 mmol/L Anion Gap 12 5-15 Blood Urea Nitrogen 39 H 9-23 mg/dL Creatinine 7.83 H 0.700-1.30 mg/dL Glomerular Filtration Rate Calc 7 >90 mL/min BUN/Creatinine Ratio 5.0 L 10.0-20.0 Serum Glucose 196 #H 74-106 mg/dL Calcium Level 10.1 8.7-10.4 mg/dL B-Type Natriuretic Peptide > 5000.00 0-100 pg/mL Assessment/Plan Assessment/Plan Assessment Acute on chronic congestive heart failure Acute on chronic respiratory failure End-stage renal disease, dialysis dependent COPD Diabetes mellitus Hypertension Anemia of chronic disease Plan Admit the patient to telemetry to the hospitalist Nephrology consultation Resume home medications Continue treatment per orders. Plan discussed with: Patient My Orders Orders - CRAIG ROOT AGACNP Procedure Category Date Status Time Aspirin Tablet PHA 10/28/24 In Process 10:00 Clopidogrel Bisulfate PHA 10/28/24 In Process (Plavix) 10:00 Atorvastatin (Lipitor) PHA 10/28/24 In Process 22:00 Carvedilol Tablet PHA 10/28/24 In Process (Coreg Tablet) 10:00 Furosemide Tablet PHA 10/28/24 In Process (Lasix Tablet) 10:00 Sacubitril-Valsartan PHA 10/28/24 In Process (Entresto 24-26 Mg 10:00 Sevelamer (Renagel) PHA 10/28/24 In Process 08:00 *[facility] CONS 10/28/24 Transmitted -[place] 00:45 Basic Metabolic Panel LAB 10/29/24 Verified 04:00 Glucose Blood PHA 10/28/24 In Process (Accu-Chek Comfort 07:00 Insulin R (Human) PHA 10/28/24 In Process (Insulin R) 07:00 Dextrose 50% Syringe PHA 10/28/24 In Process 00:45 Admit ADMIT 10/28/24 Transmitted 00:45 Renal DIET 10/28/24 Transmitted Standard(2gna,3gk,Lopho) Breakfast Ondansetron Hcl PHA 10/28/24 In Process (Zofran) 00:45 Condition: Fair RADHA 10/28/24 In Process 00:45 Acetaminophen Tablet PHA 10/28/24 In Process (Tylenol Tablet) 00:45 Bedrest With Bathroom RADHA 10/28/24 In Process Privileg 00:45 Nitroglycerin PHA 10/28/24 In Process Sublingual (Ntrostat 00:45 Morphine Sulfate PHA 10/28/24 In Process Injection 00:45 Stat Ekg For Chest [facility] 10/28/24 In Process Pain 00:45 Notify Md Of Changes [facility] 10/28/24 In Process From Base 00:45 Desk Monitor For [facility] 10/28/24 In Process 24 Hours 00:45 Emergency Dysrhythmia [facility] 10/28/24 In Process Protocol 00:45 Rhythm Strips Once [facility] 10/28/24 In Process Every Shift 00:45 Oxygen By Nasal RT 10/28/24 Transmitted Cannula 00:45 Date of Service: Oct 27, 2024 Billing Provider: CRAIG ROOT Common Visit Codes: [id number] INP/OBS CARE (HIGH) CRAIG ROOT Oct 28, 2024 04:17
--- NOTE | 2024-10-28 05:56 | ECG ---
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
--- NOTE | 2024-10-28 05:57 | ECG ---
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
--- NOTE | 2024-10-28 05:57 | ECG ---
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
[2024-10-28] MEDS: InsuLIN REG 1unit/0.01ml Soln (100units/ml) SC SCH (06:29)
[2024-10-28] MEDS: ACCU-CHEK COMFORT CURVE STRIP VI SCH (06:30)
[2024-10-28 08:00] VITALS: PULSE 83; RESP 20; O2SAT 97
[2024-10-28] MEDS: CLOPIDOGREL BISULFATE 75 MG TAB PO SCH (10:04)
[2024-10-28] MEDS: SACUBITRIL-VALSARTAN 24mg/26mg TAB PO SCH (10:04)
[2024-10-28] MEDS: ASPirin 81 mg TAB PO SCH (10:04)
[2024-10-28] MEDS: SEVELAMER 800 MG TAB PO SCH (10:05)
[2024-10-28] MEDS: CARVEDILOL 12.5 MG TAB PO SCH (10:05)
[2024-10-28] MEDS: FUROSEMIDE 40 MG TAB PO SCH (10:05)
--- NOTE | 2024-10-28 10:24 | ECG ---
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
--- NOTE | 2024-10-28 11:37 | DVHPN2 ---
Progress Note - Dictate Date Seen: Oct 28, 2024 Has the PT tested + for MRSA If YES, has PT been informed?: No Medical Necessity Reason Pt with a Central, PICC or Fol: No Subjective Went home yesterday and came right back with "tremors" vital signs Vital Sign Date Time Temp Pulse Resp B/P (MAP) Pulse Ox O2 Delivery O2 Flow Rate FiO2 10/28/24 10:05 134/61 10/28/24 10:05 96 10/28/24 08:00 20 97 Nasal Cannula* 2 28 10/28/24 08:00 98.2 98.2 medications Current Medications Medications Dose Ordered Sig/Edson Route Start Time Stop Time Status Last Admin Dose Admin Aspirin 81 mg DAILY PO 10/28/24 10:00 10/28/24 10:04 81 MG Clopidogrel Bisulfate 75 mg DAILY PO 10/28/24 10:00 10/28/24 10:04 75 MG Atorvastatin Calcium 80 mg HS PO 10/28/24 22:00 Carvedilol 25 mg Q12HR PO 10/28/24 10:00 10/28/24 10:05 25 MG Furosemide 40 mg DAILY PO 10/28/24 10:00 10/28/24 10:05 40 MG Sacubitril/ Valsartan 1 tab BID PO 10/28/24 10:00 10/28/24 10:04 1 TAB Sevelamer HCl 800 mg TIDWM PO 10/28/24 08:00 10/28/24 10:05 800 MG Diagnostic Test (Pha) 1 strip ACHS 10/28/24 07:00 10/28/24 06:30 1 STRIP Insulin Human Regular ACHS SC 10/28/24 07:00 Dextrose 50 ml UD PRN IV 10/28/24 00:45 Ondansetron HCl 4 mg Q4HP PRN IV 10/28/24 00:45 Acetaminophen 650 mg Q6HP PRN PO 10/28/24 00:45 Nitroglycerin 0.4 mg Q5MINP PRN SL 10/28/24 00:45 Morphine Sulfate 2 mg Q30M PRN IV 10/28/24 00:45 objective Alert and oriented x 3 NAD Lungs: CTA CV: RR, no pericardial rub No leg edema laboratory and microbiology Laboratory Tests 10/27/24 20:00 Test 10/27/24 20:00 Range/Units Serum Glucose 196 #H 74-106 mg/dL Problem List 1. ESRD 2. HTN 3. Anemia of CKD 4. DM2 Will schedule HD for today Plan discussed with: Patient HI WINTER MD Oct 28, 2024 11:37
--- NOTE | 2024-10-28 11:48 | DVHPN2 ---
Progress Note Date Seen: Oct 28, 2024 Has the PT tested + for MRSA If YES, has PT been informed?: No Medical Necessity Reason Pt with a Central, PICC or Fol: No Subjective Patient reports: No new complaints Review of Systems: HEENT:Normal, CVS:Normal, RESPIRATORY:Normal, GI:Normal, :Normal, MSK:Normal, NEURO:Normal Objective vital signs Vital Sign Date Time Temp Pulse Resp B/P (MAP) Pulse Ox O2 Delivery O2 Flow Rate FiO2 10/28/24 10:05 134/61 10/28/24 10:05 96 10/28/24 08:00 20 97 Nasal Cannula* 2 28 10/28/24 08:00 98.2 98.2 medications Current Medications Medications Dose Ordered Sig/Edson Route Start Time Stop Time Status Last Admin Dose Admin Aspirin 81 mg DAILY PO 10/28/24 10:00 10/28/24 10:04 81 MG Clopidogrel Bisulfate 75 mg DAILY PO 10/28/24 10:00 10/28/24 10:04 75 MG Atorvastatin Calcium 80 mg HS PO 10/28/24 22:00 Carvedilol 25 mg Q12HR PO 10/28/24 10:00 10/28/24 10:05 25 MG Furosemide 40 mg DAILY PO 10/28/24 10:00 10/28/24 10:05 40 MG Sacubitril/ Valsartan 1 tab BID PO 10/28/24 10:00 10/28/24 10:04 1 TAB Sevelamer HCl 800 mg TIDWM PO 10/28/24 08:00 10/28/24 10:05 800 MG Diagnostic Test (Pha) 1 strip ACHS 10/28/24 07:00 10/28/24 06:30 1 STRIP Insulin Human Regular ACHS SC 10/28/24 07:00 Dextrose 50 ml UD PRN IV 10/28/24 00:45 Ondansetron HCl 4 mg Q4HP PRN IV 10/28/24 00:45 Acetaminophen 650 mg Q6HP PRN PO 10/28/24 00:45 Nitroglycerin 0.4 mg Q5MINP PRN SL 10/28/24 00:45 Morphine Sulfate 2 mg Q30M PRN IV 10/28/24 00:45 Examination: GENERAL:Normal, HEENT:Normal, NECK:Normal, LUNGS:Normal, LUNGS:Abnormal (on oxygen), CVS:Normal, ABDOMEN:Normal, MSK:Normal, SKIN:Normal, NEURO:Normal, :Normal laboratory and microbiology Laboratory Tests 10/27/24 20:00 Test 10/27/24 20:00 Range/Units Serum Glucose 196 #H 74-106 mg/dL Problem List/Assessment/Plan Problem List/Assessment/Plan * v tach/aloc: cardio eval *Sfnnk-mt-gkkiwta systolic heart failure. * End-stage renal disease, on hemodialysis- today * chronic respiratory failure. * Coronary artery disease with previous stent. * History of coronary artery bypass graft. * Chronic obstructive pulmonary disease. * Anemia, status post transfusion. * Hypertension. * Diabetes mellitus. * History of hepatitis C. * Som-IJ-bcszbtbmq myocardial infarction, status post recent coronary angiography. advance care planning- full code- time spent 19 mins Plan discussed with: Patient My Orders My Orders Orders - CRAIG NAZARIO MD Procedure Category Date Status Time *[facility] -Da CONS 10/28/24 Transmitted Eleni 11:10 * Cardiology Consult CONS 10/28/24 Verified 11:45 Basic Metabolic Panel LAB 10/29/24 Verified 06:00 Magnesium LAB 10/29/24 Verified 05:00 Date of Service: Oct 28, 2024 Billing Provider: CRAIG NAZARIO MD Common Visit Codes: [id number] INP/OBS CARE(HIGH) Secondary Visit Codes: [id number] CARE PLAN 30 MINUTES CRAIG NAZARIO MD Oct 28, 2024 11:48
[2024-10-28] MEDS: SODIUM CHL 0.9% 1000 ML BAG XX ONE (17:55)
[2024-10-28 18:23] VITALS: BP 113/56; PULSE 72; RESP 18; TEMP 98.1; O2SAT 100
[2024-10-28 20:00] VITALS: PULSE 81
[2024-10-28 21:00] VITALS: BP 104/55; PULSE 80; RESP 16; TEMP 98.1
[2024-10-28] MEDS: ATORVASTATIN 20 MG TAB PO SCH (21:32)
[2024-10-28 22:00] VITALS: PULSE 81
[2024-10-29] VITALS (8 sets, daily range): BP systolic 104–137; BP diastolic 47–58; PULSE 66–78; RESP 15–18; TEMP 98.1–98.6; O2SAT 99–100
--- NOTE | 2024-10-29 09:41 | DVHPN2 ---
Progress Note - Dictate Date Seen: Oct 29, 2024 Has the PT tested + for MRSA If YES, has PT been informed?: No Medical Necessity Reason Pt with a Central, PICC or Fol: No Subjective No new complaints vital signs Vital Sign Date Time Temp Pulse Resp B/P (MAP) Pulse Ox O2 Delivery O2 Flow Rate FiO2 10/29/24 09:30 78 128/58 10/29/24 09:00 98.1 18 99 98.1 10/28/24 20:00 Nasal Cannula* 2 28 Total Intake and Output 10/28/24 10/28/24 10/29/24 15:00 23:00 07:00 Intake Total 900 ml Balance 900 ml medications Current Medications Medications Dose Ordered Sig/Edson Route Start Time Stop Time Status Last Admin Dose Admin Aspirin 81 mg DAILY PO 10/28/24 10:00 10/29/24 09:26 81 MG Clopidogrel Bisulfate 75 mg DAILY PO 10/28/24 10:00 10/29/24 09:28 75 MG Atorvastatin Calcium 80 mg HS PO 10/28/24 22:00 10/28/24 21:32 80 MG Carvedilol 25 mg Q12HR PO 10/28/24 10:00 10/29/24 09:30 25 MG Furosemide 40 mg DAILY PO 10/28/24 10:00 10/29/24 09:29 40 MG Sacubitril/ Valsartan 1 tab BID PO 10/28/24 10:00 10/29/24 09:27 1 TAB Sevelamer HCl 800 mg TIDWM PO 10/28/24 08:00 10/29/24 08:10 800 MG Diagnostic Test (Pha) 1 strip ACHS 10/28/24 07:00 10/28/24 21:43 1 STRIP Insulin Human Regular ACHS SC 10/28/24 07:00 10/28/24 22:39 4 UNITS Dextrose 50 ml UD PRN IV 10/28/24 00:45 Ondansetron HCl 4 mg Q4HP PRN IV 10/28/24 00:45 Acetaminophen 650 mg Q6HP PRN PO 10/28/24 00:45 Nitroglycerin 0.4 mg Q5MINP PRN SL 10/28/24 00:45 Morphine Sulfate 2 mg Q30M PRN IV 10/28/24 00:45 objective Alert and oriented x 3 NAD Lungs: CTA CV: RR, no pericardial rub No leg edema laboratory and microbiology Laboratory Tests 10/27/24 20:00 Test 10/29/24 09:14 Range/Units Serum Glucose Pending Problem List 1. ESRD, had HD yesterday without complications 2. HTN 3. Anemia of CKD 4. DM2 Dc planning Continue outpatient HD Plan discussed with: Patient HI WINTER MD Oct 29, 2024 09:41
[2024-10-29 09:43] LABS: Chloride 100 mmol/L (98-107); Potassium 4.1 mmol/L (3.5-5.1); Sodium 140 mmol/L (136-145)
[2024-10-29 09:44] LABS: Anion Gap 9 (5-15); Calcium 10.1 mg/dL (8.7-10.4); Carbon Dioxide 31 mmol/L (20-31)
[2024-10-29 09:50] LABS: Magnesium 2.1 mg/dL (1.6-2.6)
[2024-10-29 09:51] LABS: Blood Urea Nitrogen 25 mg/dL (9-23); Glucose 143 mg/dL (74-106)
--- NOTE | 2024-10-29 10:14 | DVHPN2 ---
Progress Note Date Seen: Oct 29, 2024 Has the PT tested + for MRSA If YES, has PT been informed?: No Medical Necessity Reason Pt with a Central, PICC or Fol: No Subjective Patient reports: No new complaints Review of Systems: HEENT:Normal, CVS:Normal, RESPIRATORY:Normal, GI:Normal, :Normal, MSK:Normal, NEURO:Normal Objective vital signs Vital Sign Date Time Temp Pulse Resp B/P (MAP) Pulse Ox O2 Delivery O2 Flow Rate FiO2 10/29/24 09:30 78 128/58 10/29/24 09:00 98.1 18 99 98.1 10/28/24 20:00 Nasal Cannula* 2 28 Total Intake and Output 10/28/24 10/28/24 10/29/24 15:00 23:00 07:00 Intake Total 900 ml Balance 900 ml medications Current Medications Medications Dose Ordered Sig/Edson Route Start Time Stop Time Status Last Admin Dose Admin Aspirin 81 mg DAILY PO 10/28/24 10:00 10/29/24 09:26 81 MG Clopidogrel Bisulfate 75 mg DAILY PO 10/28/24 10:00 10/29/24 09:28 75 MG Atorvastatin Calcium 80 mg HS PO 10/28/24 22:00 10/28/24 21:32 80 MG Carvedilol 25 mg Q12HR PO 10/28/24 10:00 10/29/24 09:30 25 MG Furosemide 40 mg DAILY PO 10/28/24 10:00 10/29/24 09:29 40 MG Sacubitril/ Valsartan 1 tab BID PO 10/28/24 10:00 10/29/24 09:27 1 TAB Sevelamer HCl 800 mg TIDWM PO 10/28/24 08:00 10/29/24 08:10 800 MG Diagnostic Test (Pha) 1 strip ACHS 10/28/24 07:00 10/28/24 21:43 1 STRIP Insulin Human Regular ACHS SC 10/28/24 07:00 10/28/24 22:39 4 UNITS Dextrose 50 ml UD PRN IV 10/28/24 00:45 Ondansetron HCl 4 mg Q4HP PRN IV 10/28/24 00:45 Acetaminophen 650 mg Q6HP PRN PO 10/28/24 00:45 Nitroglycerin 0.4 mg Q5MINP PRN SL 10/28/24 00:45 Morphine Sulfate 2 mg Q30M PRN IV 10/28/24 00:45 Examination: GENERAL:Normal, HEENT:Normal, NECK:Normal, LUNGS:Normal, LUNGS:Abnormal (on oxygen), CVS:Normal, ABDOMEN:Normal, MSK:Normal, SKIN:Normal, NEURO:Normal, :Normal laboratory and microbiology Laboratory Tests 10/29/24 09:14 10/27/24 20:00 Test 10/29/24 09:14 Range/Units Serum Glucose 143 H 74-106 mg/dL Problem List/Assessment/Plan Problem List/Assessment/Plan * v tach/aloc: cardio eval *Unlft-eu-ontwbtg systolic heart failure. * End-stage renal disease, on hemodialysis- today * chronic respiratory failure. * Coronary artery disease with previous stent. * History of coronary artery bypass graft. * Chronic obstructive pulmonary disease. * Anemia, status post transfusion. * Hypertension. * Diabetes mellitus. * History of hepatitis C. * Zez-BC-enckjfvjk myocardial infarction, status post recent coronary angiography. advance care planning- full code- time spent 19 mins explained to in detail plan of care Plan discussed with: Patient, Spouse My Orders My Orders Orders - CRAIG NAZARIO MD Procedure Category Date Status Time *[facility] -Da CONS 10/28/24 Transmitted Eleni 11:10 * Cardiology Consult CONS 10/28/24 Transmitted 11:45 Date of Service: Oct 29, 2024 Billing Provider: CRAIG NAZARIO MD Common Visit Codes: [id number] INP/OBS CARE(HIGH) CRAIG NAZARIO MD Oct 29, 2024 10:14
--- NOTE | 2024-10-29 14:59 | DVHINCON2 ---
CLOTILDE CHONG [facility] 10/29/24 1459: Date Seen: Oct 29, 2024 Referring Physician MD Lance Reason for Consultation V tach History of Present Illness This is a 74-year-old male patient who presents to the emergency room with chief complaint of chest pain and seizure-like activity. The patient reports he was recently seen and discharged from this facility. He states he went home and was enjoying a bowl of cereal when suddenly he started feeling generalized shaking all over his body. His called 911 and he was brought back to the emergency room. The patient also mentions chest pain that he was experiencing prior to seizure-like activity. He describes the chest pain as unprovoked, intermittent, sharp in nature, midsternal and nonradiating. Associated symptoms include shortness of breath. Initial twelve lead electrocardiogram reveals normal sinus rhythm with PVC and left ventricular hypertrophy. The patient was found to have episodes of nonsustained ventricular tachycardia on panel monitor. Initial troponin level of 155ng/L with up-trend thereafter. Significant medical history includes severe coronary artery disease status post triple-vessel CABG on ASA therapy(01/2024), congestive heart failure, hypertension, dyslipidemia, COPD on home oxygen, end-stage renal disease on hemodialysis, type 2 diabetes mellitus, previous tobacco use and benign prostatic hyperplasia. 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 The patient was recently seen at this facility and underwent a coronary angiogram with left heart c atheterization with successful PTCA stenting and lithotripsy of the left anterior descending coronary artery on 09/01/2024. He then underwent another coronary angiogram with left heart catheterization on 10/23/24, in which no catheter based intervention was needed. Past Medical History Past medical history reviewed. No other significant than mentioned above. Past Surgical History Triple-vessel CABG (01/2024) at [facility] Family History: FH: cancer G8 MOTHER FH: heart disease G8 FATHER Family History Family history reviewed. Social History Patient has a seven pack-year history, quit smoking approximately one year ago Denies any illicit drug use Denies any alcohol use Allergies: Coded Allergies: NO KNOWN ALLERGIES (Unverified , 01/05/24) Home Meds Reported Medications Magnesium Oxide (Magnesium Oxide) 400 Mg Tab, 1 TAB PO DAILY for 90 Days, #90 4/24/25 Meloxicam (Meloxicam) 15 Mg Tab, 1 TAB PO DAILY for 30 Days, #30 10/29/24 Sacubitril-Valsartan (Entresto 24-26 mg) 1 Tab Tab, 1 TAB PO BID for 30 Days, #60 10/29/24 Nifedipine (Nifedipine Er) 90 Mg Tab, 1 TAB PO DAILY for 30 Days, #30 10/29/24 Nitroglycerin (Nitrostat) 0.4 Mg Sub, 1 TAB PO UD for 33 Days, #100 10/29/24 Atorvastatin Calcium (ATORVASTATIN CALCIUM) 40 Mg Tab, 1 TAB PO DAILY for 90 Days, #90 10/29/24 Isosorbide Mononitrate (Isosorbide Mononitrate Er) 30 Mg Tab, 1 TAB PO DAILY for 90 Days, #90 10/29/24 Clopidogrel Bisulfate (CLOPIDOGREL) 75 Mg Tab, 1 TAB PO DAILY for 90 Days, #90 10/29/24 Ranolazine (Ranolazine ER) 500 Mg Tab, 1 TAB PO BID for 30 Days, #60 10/29/24 Furosemide (Furosemide) 40 Mg Tab, 1 TAB PO DAILY for 90 Days, #90 01/07/24 Ergocalciferol (Vitamin D) 50,000 Unit Cap, 1 CAP PO QWEEKLY 01/07/24 Omeprazole (Omeprazole Dr) 40 Mg Cap, 1 CAP PO DAILY for 90 Days, #90 01/07/24 Aspirin (Aspirin Low Dose) 81 Mg Chw, 1 TAB PO DAILY 01/07/24 Sevelamer Carbonate (Renvela) 800 Mg Tab, 2 TAB PO TID 01/07/24 Carvedilol (Carvedilol) 25 Mg Tab, 1 TAB PO BID for 90 Days, #180 01/07/24 Oxycodone HCl (Oxycodone Hydrochloride) 15 Mg Tab, 1 TAB PO QID for 30 Days, #120 01/07/24 Discontinued Reported Medications Tamsulosin Hcl (Tamsulosin Hcl) 0.4 Mg Cap, 2 CAP PO DAILY 01/07/24 Magnesium Oxide (MAGNESIUM OXIDE) 400 Mg Tab, 1 TAB PO DAILY 01/07/24 Home Meds Home medications reviewed. Current Medications Current Medications Medications (Trade) Dose Ordered Sig/Edson Route PRN Reason Start Time Stop Time Status Last Admin Atorvastatin Calcium (Lipitor) 80 mg HS PO 10/28/24 22:00 10/28/24 21:32 Review of Systems Constitutional: No symptom reported Ears, Nose, & Throat: No symptom reported Eyes: No symptom reported Neurological: No symptoms reported Pulmonary/Respiratory: No symptoms reported Cardiovascular: Chest pain Gastrointestinal: No symptom reported Genitourinary: No symptom reported Musculoskeletal: No symptom reported Skin: No symptom reported Psychiatric: No symptom reported Endocrine: No symptom reported Hematologic/Lymphatic: No symptom reported Vital Signs Vital Signs Date Time Temp Pulse Resp B/P (MAP) Pulse Ox O2 Delivery O2 Flow Rate FiO2 10/29/24 13:00 98.3 70 15 111/48 (69) 99 98.3 10/29/24 08:00 Nasal Cannula* 2 28 Physical Exam General Appearance: Cooperative. Well-developed. Well-nourished. No acute distress. Pulmonary/Respiratory: Clear, bilateral breaths sounds. Cardiovascular/Chest: Regular rate and rhythm. Peripheral Pulses: 2+ Radial (R). 2+ Radial (L). 2+ Pedal (R). 2+ Pedal (L) Abdominal Exam: Normal bowel sounds. Ankle Exam: Negative ankle edema Lower extremities: Negative lower extremity edema Neuro/Mental Status: A/OX4, coherent. Thoughts/Psych: Normal thought pattern. Appropriate mood and affect. Good judgment and insight. Appearance: No acute distress. Skin Exam: Normal inspection. Normal color. Warm and dry. Labs/Diagnostic Data Labs Test 10/29/24 11:09 10/29/24 09:14 10/27/24 23:07 10/27/24 20:00 Range/Units POC Glucose 165 H 70-106 mg/dl Sodium Level 140 136-145 mmol/L Potassium Level 4.1 3.5-5.1 mmol/L Chloride Level 100 98-107 mmol/L Carbon Dioxide Level 31 20-31 mmol/L Anion Gap 9 5-15 Blood Urea Nitrogen 25 #H 9-23 mg/dL Creatinine 6.32 H 0.700-1.30 mg/dL Glomerular Filtration Rate Calc 9 >90 mL/min BUN/Creatinine Ratio 4.0 L 10.0-20.0 Serum Glucose 143 H 74-106 mg/dL Calcium Level 10.1 8.7-10.4 mg/dL Magnesium Level 2.1 1.6-2.6 mg/dL Troponin I High Sensitivity 463 *H </=54 ng/L White Blood Count 5.3 4.4-10.8 10^3/uL Red Blood Count 2.68 L 4.5-5.90 10^6/uL Hemoglobin 8.9 L 13.5-17.5 g/dL Hematocrit 26.4 L 41.0-53.0 % Mean Corpuscular Volume 98.2 80.0-100.0 fL Mean Corpuscular Hemoglobin 33.1 H 28.0-32.0 pg Mean Corpuscular Hemoglobin Concent 33.7 32.0-36.0 g/dL Red Cell Distribution Width 17.7 H 11.8-14.3 % Platelet Count 261 140-450 10^3/uL Mean Platelet Volume 6.8 L 6.9-10.8 fL Neutrophils (%) (Auto) 65.1 37.0-80.0 % Lymphocytes (%) (Auto) 17.7 10.0-50.0 % Monocytes (%) (Auto) 14.6 H 0.0-12.0 % Eosinophils (%) (Auto) 2.1 0.0-7.0 % Basophils (%) (Auto) 0.5 0.0-2.0 % Neutrophils # (Auto) 3.5 1.6-8.6 10 ^3/uL Lymphocytes # (Auto) 0.9 0.4-5.4 10 ^3/uL Monocytes # (Auto) 0.8 0-1.3 10 ^3/uL Eosinophils # (Auto) 0.1 0-0.8 10 ^3/uL Basophils # (Auto) 0 0-0.2 10 ^3/uL Nucleated Red Blood Cells 0.0 % B-Type Natriuretic Peptide > 5000.00 0-100 pg/mL Assessment Sick sinus syndrome Nonsustained ventricular tachycardia NSTEMI, type II secondary to above Severe coronary artery disease status post triple-vessel CABG (on ASA and Plavix) Multiple PTCAs x 1 MENDEZ (on aspirin and Plavix) Acute on chronic decompensated HFrEF, NYHA class III Hypertension Dyslipidemia COPD with home oxygen dependence End-stage renal disease on hemodialysis Type 2 diabetes mellitus History of tobacco use Plan/Recommendation We will continue following plan/recommendations (Dr. Carrasquillo): * Repeat transthoracic echocardiogram to evaluate cardiac function * Previous transthoracic echocardiogram from 07/23/2024 reveals an EF of 35- 40% * Continue guideline directed medical therapy for CHF as renal function permits * Continue dual antiplatelet therapy * Lipid-lowering agent * EP consult * Close Cardiac surveillance Patient seen and examined at bedside with . athletic monitor events reviewed with . Patient noted to have tachy-remedios events as well as nonsustained V-tach. Given the patient's reduced ejection fraction and tachy- remedios events, the patient may qualify for ICD placement. We will consult EP. Thank you for allowing us to care for this patient. Please call with any questions or concerns. Critical care time spent: 42 minutes This medical document was created using an electronic medical record system with voice recognition software and computerized dictation system. Although this document has been carefully reviewed, there might still be some phonetic and typographical errors. Occasional wrong-word or ``sound-alike substitutions may have occurred due to the inherent limitations of voice recognition software. These areas are purely typographical due to imperfections of the software programs and do not reflect any compromise in the patient's medical care. Please read the chart carefully and recognize, using context, where these substitutions have occurred. Plan discussed with: Patient NYHA Physical activity limitations: Class3(Marked) ordinary (activity causes symtoms) Date of Service: Oct 29, 2024 Billing Provider: CLOTILDE CHONG Cardiology Common Codes: 75278-[id number] INP/OBS CARE (High) Cardiology Consultation Codes: 40999-[id number] CONSULT <45MIN LAZARUSTRISTAN Rich DO 10/29/24 2326: Date Seen: Oct 29, 2024 Family History: FH: cancer G8 MOTHER FH: heart disease G8 FATHER Allergies: Coded Allergies: NO KNOWN ALLERGIES (Unverified , 01/05/24) Home Meds Reported Medications Magnesium Oxide (Magnesium Oxide) 400 Mg Tab, 1 TAB PO DAILY for 90 Days, #90 10/29/24 Meloxicam (Meloxicam) 15 Mg Tab, 1 TAB PO DAILY for 30 Days, #30 10/29/24 Sacubitril-Valsartan (Entresto 24-26 mg) 1 Tab Tab, 1 TAB PO BID for 30 Days, #60 10/29/24 Nifedipine (Nifedipine Er) 90 Mg Tab, 1 TAB PO DAILY for 30 Days, #30 10/29/24 Nitroglycerin (Nitrostat) 0.4 Mg Sub, 1 TAB PO UD for 33 Days, #100 10/29/24 Atorvastatin Calcium (ATORVASTATIN CALCIUM) 40 Mg Tab, 1 TAB PO DAILY for 90 Days, #90 10/29/24 Isosorbide Mononitrate (Isosorbide Mononitrate Er) 30 Mg Tab, 1 TAB PO DAILY for 90 Days, #90 10/29/24 Clopidogrel Bisulfate (CLOPIDOGREL) 75 Mg Tab, 1 TAB PO DAILY for 90 Days, #90 10/29/24 Ranolazine (Ranolazine ER) 500 Mg Tab, 1 TAB PO BID for 30 Days, #60 10/29/24 Furosemide (Furosemide) 40 Mg Tab, 1 TAB PO DAILY for 90 Days, #90 01/07/24 Ergocalciferol (Vitamin D) 50,000 Unit Cap, 1 CAP PO QWEEKLY 01/07/24 Omeprazole (Omeprazole Dr) 40 Mg Cap, 1 CAP PO DAILY for 90 Days, #90 01/07/24 Aspirin (Aspirin Low Dose) 81 Mg Chw, 1 TAB PO DAILY 01/07/24 Sevelamer Carbonate (Renvela) 800 Mg Tab, 2 TAB PO TID 01/07/24 Carvedilol (Carvedilol) 25 Mg Tab, 1 TAB PO BID for 90 Days, #180 01/07/24 Oxycodone HCl (Oxycodone Hydrochloride) 15 Mg Tab, 1 TAB PO QID for 30 Days, #120 01/07/24 Discontinued Reported Medications Tamsulosin Hcl (Tamsulosin Hcl) 0.4 Mg Cap, 2 CAP PO DAILY 01/07/24 Magnesium Oxide (MAGNESIUM OXIDE) 400 Mg Tab, 1 TAB PO DAILY 01/07/24 Plan/Recommendation The patient was discussed, seen, and examined with Clotilde Chong NP. I agree with her Assessment and Plan, which was formulated with me. Plan discussed with: Patient Date of Service: Oct 29, 2024 Billing Provider: TRISTAN CARRASQUILLO DO Cardiology Common Codes: [id number] INP/OBS CARE (High) CLOTILDE CHONG Oct 29, 2024 14:59 TRISTAN CARRASQUILLO DO Oct 29, 2024 23:26
[2024-10-29] MEDS: CARVEDILOL 12.5 MG TAB PO SCH (21:32)
[2024-10-30] VITALS (8 sets, daily range): BP systolic 104–140; BP diastolic 45–65; PULSE 53–83; RESP 16–18; TEMP 97.6–98.8; O2SAT 97–100
--- NOTE | 2024-10-30 08:25 | CONS ---
Pharmacy Clinical Information: From Heart Failure Potential Fallout Report on CQM Application, Bernard Mccauley is a 74 year old male with PMH of ESRD, COPD, DM, HTN, CHF, CAD. His home medications for heart failure include carvedilol, sacubitril/valsartan. His inpatient medications include carvedilol, sacubitril/valsartan. Consider switching carvedilol to metoprolol succinate due to COPD. MRA, SGLT2i not recommended due to dialysis dependent ESRD (eGFR<15). MISHEL BENEDICT PHARMACIST Oct 30, 2024 08:25
--- NOTE | 2024-10-30 11:48 | DVHPN2 ---
Progress Note - Dictate Date Seen: Oct 30, 2024 Has the PT tested + for MRSA If YES, has PT been informed?: No Medical Necessity Reason Pt with a Central, PICC or Fol: No Subjective No new complaints vital signs Vital Sign Date Time Temp Pulse Resp B/P (MAP) Pulse Ox O2 Delivery O2 Flow Rate FiO2 10/30/24 09:00 98.3 74 18 113/58 (76) 98 98.3 10/30/24 08:00 Nasal Cannula* 2 28 Total Intake and Output 10/29/24 10/29/24 10/30/24 15:00 23:00 07:00 Intake Total 972 ml 600 ml Output Total 650 ml Balance 972 ml -50 ml medications Current Medications Medications Dose Ordered Sig/Edson Route Start Time Stop Time Status Last Admin Dose Admin Aspirin 81 mg DAILY PO 10/28/24 10:00 10/30/24 08:40 81 MG Clopidogrel Bisulfate 75 mg DAILY PO 10/28/24 10:00 10/30/24 08:40 75 MG Atorvastatin Calcium 80 mg HS PO 10/28/24 22:00 10/29/24 21:32 80 MG Furosemide 40 mg DAILY PO 10/28/24 10:00 10/29/24 09:29 40 MG Sacubitril/ Valsartan 1 tab BID PO 10/28/24 10:00 10/29/24 21:32 1 TAB Sevelamer HCl 800 mg TIDWM PO 10/28/24 08:00 10/30/24 08:40 800 MG Diagnostic Test (Pha) 1 strip ACHS 10/28/24 07:00 10/30/24 06:29 1 STRIP Insulin Human Regular ACHS SC 10/28/24 07:00 10/30/24 06:28 4 UNITS Dextrose 50 ml UD PRN IV 10/28/24 00:45 Ondansetron HCl 4 mg Q4HP PRN IV 10/28/24 00:45 Acetaminophen 650 mg Q6HP PRN PO 10/28/24 00:45 Nitroglycerin 0.4 mg Q5MINP PRN SL 10/28/24 00:45 Morphine Sulfate 2 mg Q30M PRN IV 10/28/24 00:45 Carvedilol 12.5 mg Q12HR PO 10/29/24 22:00 10/29/24 21:32 12.5 MG objective Alert and oriented x 3 NAD Lungs: CTA CV: RR, no pericardial rub No leg edema laboratory and microbiology Laboratory Tests 10/29/24 09:14 10/27/24 20:00 Test 10/29/24 09:14 Range/Units Serum Glucose 143 H 74-106 mg/dL Problem List 1. ESRD, seen during HD today, tolerating well 2. HTN 3. Anemia of CKD 4. DM2 5. Ventricular tachycardia HD today Cardiology evaluation Plan discussed with: Patient HI WINTER MD Oct 30, 2024 11:48
--- NOTE | 2024-10-30 12:43 | DVHPN2 ---
Reviewed: Care Plan, H&P, Labs, Medications, Previous Orders, Radiology Changes from previous H/P or p: No Changes Objective Vitals Vital Signs Date Time Temp Pulse Resp B/P (MAP) Pulse Ox O2 Delivery O2 Flow Rate FiO2 10/30/24 12:08 125/65 10/30/24 09:00 98.3 74 18 98 98.3 10/30/24 08:00 Nasal Cannula* 2 28 Intake/Output Intake and Output 10/30/24 07:00 Intake Total 1572 ml Output Total 650 ml Balance 922 ml Intake Oral 1572 ml Output Urine Total 650 ml # Voids 4 Medications Current Medications Medications Dose Ordered Sig/Edson Route Start Time Stop Time Status Last Admin Dose Admin Aspirin 81 mg DAILY PO 10/28/24 10:00 10/30/24 08:40 81 MG Clopidogrel Bisulfate 75 mg DAILY PO 10/28/24 10:00 10/30/24 08:40 75 MG Atorvastatin Calcium 80 mg HS PO 10/28/24 22:00 10/29/24 21:32 80 MG Furosemide 40 mg DAILY PO 10/28/24 10:00 10/30/24 12:08 40 MG Sacubitril/ Valsartan 1 tab BID PO 10/28/24 10:00 10/29/24 21:32 1 TAB Sevelamer HCl 800 mg TIDWM PO 10/28/24 08:00 10/30/24 12:08 800 MG Diagnostic Test (Pha) 1 strip ACHS 10/28/24 07:00 10/30/24 12:00 1 STRIP Insulin Human Regular ACHS SC 10/28/24 07:00 10/30/24 06:28 4 UNITS Dextrose 50 ml UD PRN IV 10/28/24 00:45 Ondansetron HCl 4 mg Q4HP PRN IV 10/28/24 00:45 Acetaminophen 650 mg Q6HP PRN PO 10/28/24 00:45 Nitroglycerin 0.4 mg Q5MINP PRN SL 10/28/24 00:45 Morphine Sulfate 2 mg Q30M PRN IV 10/28/24 00:45 Carvedilol 12.5 mg Q12HR PO 10/29/24 22:00 10/29/24 21:32 12.5 MG Laboratory Results Laboratory Tests 10/27/24 20:00 10/29/24 09:14 Labs and/or images reviewed: Labs reviewed by me, Image(s) reviewed by me Assessment/Plan Assessment/Plan Covering for Dr. Lucas Tachbaltazary syndrome: Dr. Guillen planning for ICD Acute on chronic respiratory failure *[id number] systolic heart failure. * End-stage renal disease, on hemodialysis- today Dr. Floyd follow up * Coronary artery disease with previous stent. * History of coronary artery bypass graft. * Chronic obstructive pulmonary disease. * Anemia, status post transfusion. * Hypertension. * Diabetes mellitus. * History of hepatitis C. * [id number] myocardial infarction, status post recent coronary angiography. Continue current management Time spent 70 minutes Advanced care planning time 20 minutes Patient is full code Plan discussed with: Patient Date of Service: Oct 30, 2024 Billing Provider: CHRIS SIDHU MD Common Visit Codes: [id number] CARE 30-74 MIN CHRIS SIDHU MD Oct 30, 2024 12:43
[2024-10-30] MEDS: SODIUM CHL 0.9% 1000 ML BAG XX ONE (12:45)
--- NOTE | 2024-10-30 17:13 | DVHSR ---
APPROVED REPORT EXAM: Two-dimensional and M-mode echocardiogram with Doppler and color Doppler. Blood Pressure: 126/45 mmHg INDICATION Re-evaluate cardiac function nstemi vt RISK FACTORS Height: 5'10", Weight: 164 DIMENSIONS LVDd5.8 (3.8-5.7cm)LA (2D)4.4 (1.9-4.0cm)Aortic Root3.1 (2.0-3.7cm) LVDs4.7 (2.5-4.0cm)LA (MM) (1.9-4.0cm)Aortic Cusp Exc0.9 (1.5-2.0cm) EF (%) 39.0 (55-70%)Rt. Atrium4.0 (1.9-4.0cm)Asc. Aorta3.2 cm IVSd1.3 (0.7-1.1cm)RV (D)4.5 (1.8-2.4cm) PWd0.8 (0.7-1.1cm) Mitral Valve MitralMitral Stenosis E wave0.98m/sMV Mean GR.mmHg A wave1.03m/sMV Peak GR.mmHg E/A ratio1.02D MVAcm2 DECEL [id number] 1/2 Timems Aortic Valve Aortic ValveAortic Stenosis V10.87m/Bhavesh Mean GR.8mmHg V21.84m/Bhavesh Peak GR.14mmHg LVOT Diameter2.1 (1.8-2.4cm)Doppler AVA1.64cm2 2D AVA1.87cm2 Pulmonic Valve V21.15m/s Tricuspid Valve TR Velocity2.20m/s [id number] Other Information Quality : Technically LimitedRhythm : Technically limited study due to body habitus. Conclusion LVEF Moderately reduced at 35-40%, global hypokinesis, inferior akinesis RV mildly dilated and mildly reduced function NCC aortic leaflt heavily calcified, likely mooderate aortic stenosis moderate MR Large left pleural effusion
--- NOTE | 2024-10-30 17:42 | DVHPN2 ---
Consult Progress Note Subjective Other Systems: Patient in normal sinus rhythm on tapper bit at time of assessment Episodes of bradycardia and tachycardia noticed on monitor Objective vital signs Vital Sign Date Time Temp Pulse Resp B/P (MAP) Pulse Ox O2 Delivery O2 Flow Rate FiO2 10/30/24 16:57 98.1 71 16 114/60 (78) 99 98.1 10/30/24 08:00 Nasal Cannula* 2 28 Total Intake and Output 10/29/24 10/29/24 10/30/24 15:00 23:00 07:00 Intake Total 972 ml 600 ml Output Total 650 ml Balance 972 ml -50 ml medications Current Medications Medications Dose Ordered Sig/Edson Route Start Time Stop Time Status Last Admin Dose Admin Aspirin 81 mg DAILY PO 10/28/24 10:00 10/30/24 08:40 81 MG Clopidogrel Bisulfate 75 mg DAILY PO 10/28/24 10:00 10/30/24 08:40 75 MG Atorvastatin Calcium 80 mg HS PO 10/28/24 22:00 10/29/24 21:32 80 MG Furosemide 40 mg DAILY PO 10/28/24 10:00 10/30/24 12:08 40 MG Sacubitril/ Valsartan 1 tab BID PO 10/28/24 10:00 10/29/24 21:32 1 TAB Sevelamer HCl 800 mg TIDWM PO 10/28/24 08:00 10/30/24 17:32 800 MG Diagnostic Test (Pha) 1 strip ACHS 10/28/24 07:00 10/30/24 17:30 1 STRIP Insulin Human Regular ACHS SC 10/28/24 07:00 10/30/24 17:35 3 UNITS Dextrose 50 ml UD PRN IV 10/28/24 00:45 Ondansetron HCl 4 mg Q4HP PRN IV 10/28/24 00:45 Acetaminophen 650 mg Q6HP PRN PO 10/28/24 00:45 Nitroglycerin 0.4 mg Q5MINP PRN SL 10/28/24 00:45 Morphine Sulfate 2 mg Q30M PRN IV 10/28/24 00:45 Carvedilol 12.5 mg Q12HR PO 10/29/24 22:00 10/29/24 21:32 12.5 MG Examination: GENERAL:Abnormal (Generalized weakness), LUNGS:Normal, CVS:Normal (Normal sinus rhythm at time of assessment), NEURO:Normal laboratory and microbiology Laboratory Tests 10/29/24 09:14 10/27/24 20:00 Test 10/29/24 09:14 Range/Units Serum Glucose 143 H 74-106 mg/dL Problem List/Assessment/Plan Problem List/Assessment/Plan Sick sinus syndrome Nonsustained ventricular tachycardia NSTEMI, type II secondary to above Severe coronary artery disease status post triple-vessel CABG (on ASA and Plavix) Multiple PTCAs x 1 MENDEZ (on aspirin and Plavix) Acute on chronic decompensated HFrEF, NYHA class III Hypertension Dyslipidemia Moderate mitral regurgitation COPD with home oxygen dependence End-stage renal disease on hemodialysis Type 2 diabetes mellitus History of tobacco use Plan/Recommendation (Dr. Diaz): * Transthoracic echocardiogram reveals EF 35-40% with global hypokinesis * Continue guideline directed medical therapy for CHF as renal function permits * Continue dual antiplatelet therapy * Lipid-lowering agent * EP consult, possible ICD implantation * Close Cardiac surveillance Patient seen and examined at bedside with . Patient noted to have tachy- remedios events as well as nonsustained V-tach. Given the patient's reduced ejection fraction and tachy-remedios events, the patient may qualify for ICD placement. We will consult EP. Thank you for allowing us to care for this patient. Please call with any questions or concerns. This medical document was created using an electronic medical record system with voice recognition software and computerized dictation system. Although this document has been carefully reviewed, there might still be some phonetic and typographical errors. Occasional wrong-word or ``sound-alike substitutions may have occurred due to the inherent limitations of voice recognition software. These areas are purely typographical due to imperfections of the software programs and do not reflect any compromise in the patient's medical care. Please read the chart carefully and recognize, using context, where these substitutions have occurred. Plan discussed with: Patient Date of Service: Oct 30, 2024 Billing Provider: CLOTILDE COLINDRES Common Visit Codes: [id number] INP/OBS CARE(HIGH) CLOTILDE COLINDRES Oct 30, 2024 17:42
--- NOTE | 2024-10-30 21:01 | DVHINCON2 ---
Date of service: Oct 30, 2024 History of Present Illness Family History: FH: cancer G8 MOTHER FH: heart disease G8 FATHER Allergies: Coded Allergies: NO KNOWN ALLERGIES (Unverified , 01/05/24) Home Meds Reported Medications Magnesium Oxide (Magnesium Oxide) 400 Mg Tab, 1 TAB PO DAILY for 90 Days, #90 10/29/24 Meloxicam (Meloxicam) 15 Mg Tab, 1 TAB PO DAILY for 30 Days, #30 10/29/24 Sacubitril-Valsartan (Entresto 24-26 mg) 1 Tab Tab, 1 TAB PO BID for 30 Days, #60 10/29/24 Nifedipine (Nifedipine Er) 90 Mg Tab, 1 TAB PO DAILY for 30 Days, #30 10/29/24 Nitroglycerin (Nitrostat) 0.4 Mg Sub, 1 TAB PO UD for 33 Days, #100 10/29/24 Atorvastatin Calcium (ATORVASTATIN CALCIUM) 40 Mg Tab, 1 TAB PO DAILY for 90 Days, #90 10/29/24 Isosorbide Mononitrate (Isosorbide Mononitrate Er) 30 Mg Tab, 1 TAB PO DAILY for 90 Days, #90 10/29/24 Clopidogrel Bisulfate (CLOPIDOGREL) 75 Mg Tab, 1 TAB PO DAILY for 90 Days, #90 10/29/24 Ranolazine (Ranolazine ER) 500 Mg Tab, 1 TAB PO BID for 30 Days, #60 10/29/24 Furosemide (Furosemide) 40 Mg Tab, 1 TAB PO DAILY for 90 Days, #90 01/07/24 Ergocalciferol (Vitamin D) 50,000 Unit Cap, 1 CAP PO QWEEKLY 01/07/24 Omeprazole (Omeprazole Dr) 40 Mg Cap, 1 CAP PO DAILY for 90 Days, #90 01/07/24 Aspirin (Aspirin Low Dose) 81 Mg Chw, 1 TAB PO DAILY 01/07/24 Sevelamer Carbonate (Renvela) 800 Mg Tab, 2 TAB PO TID 01/07/24 Carvedilol (Carvedilol) 25 Mg Tab, 1 TAB PO BID for 90 Days, #180 01/07/24 Oxycodone HCl (Oxycodone Hydrochloride) 15 Mg Tab, 1 TAB PO QID for 30 Days, #120 01/07/24 Current Medications Current Medications Medications (Trade) Dose Ordered Sig/Edson Route PRN Reason Start Time Stop Time Status Last Admin Carvedilol (Coreg Tablet) 12.5 mg Q12HR PO 10/29/24 22:00 10/29/24 21:32 Review of Systems A 14-point review of systems is negative unless otherwise noted. Vital Signs Vital Signs Date Time Temp Pulse Resp B/P (MAP) Pulse Ox O2 Delivery O2 Flow Rate FiO2 10/30/24 16:57 98.1 71 16 114/60 (78) 99 98.1 10/30/24 08:00 Nasal Cannula* 2 28 Physical Exam Heart: S1 and S2 present. The patient is in sinus rhythm. Lungs: CTAB, with diminished breath sounds to left lung base Abdomen: Benign. Extremities: Left upper extremity fistula, Distal pulses palpable, 2+. No evidence for peripheral edema Labs/Diagnostic Data Labs Test 10/30/24 17:11 10/30/24 09:05 10/29/24 09:14 10/27/24 23:07 Range/Units POC Glucose 166 H 70-106 mg/dl Hepatitis B Surface Antigen Negative Negative Sodium Level 140 136-145 mmol/L Potassium Level 4.1 3.5-5.1 mmol/L Chloride Level 100 98-107 mmol/L Carbon Dioxide Level 31 20-31 mmol/L Anion Gap 9 5-15 Blood Urea Nitrogen 25 #H 9-23 mg/dL Creatinine 6.32 H 0.700-1.30 mg/dL Glomerular Filtration Rate Calc 9 >90 mL/min BUN/Creatinine Ratio 4.0 L 10.0-20.0 Serum Glucose 143 H 74-106 mg/dL Calcium Level 10.1 8.7-10.4 mg/dL Magnesium Level 2.1 1.6-2.6 mg/dL Troponin I High Sensitivity 463 *H </=54 ng/L Test 10/27/24 20:00 Range/Units White Blood Count 5.3 4.4-10.8 10^3/uL Red Blood Count 2.68 L 4.5-5.90 10^6/uL Hemoglobin 8.9 L 13.5-17.5 g/dL Hematocrit 26.4 L 41.0-53.0 % Mean Corpuscular Volume 98.2 80.0-100.0 fL Mean Corpuscular Hemoglobin 33.1 H 28.0-32.0 pg Mean Corpuscular Hemoglobin Concent 33.7 32.0-36.0 g/dL Red Cell Distribution Width 17.7 H 11.8-14.3 % Platelet Count 261 140-450 10^3/uL Mean Platelet Volume 6.8 L 6.9-10.8 fL Neutrophils (%) (Auto) 65.1 37.0-80.0 % Lymphocytes (%) (Auto) 17.7 10.0-50.0 % Monocytes (%) (Auto) 14.6 H 0.0-12.0 % Eosinophils (%) (Auto) 2.1 0.0-7.0 % Basophils (%) (Auto) 0.5 0.0-2.0 % Neutrophils # (Auto) 3.5 1.6-8.6 10 ^3/uL Lymphocytes # (Auto) 0.9 0.4-5.4 10 ^3/uL Monocytes # (Auto) 0.8 0-1.3 10 ^3/uL Eosinophils # (Auto) 0.1 0-0.8 10 ^3/uL Basophils # (Auto) 0 0-0.2 10 ^3/uL Nucleated Red Blood Cells 0.0 % B-Type Natriuretic Peptide > 5000.00 0-100 pg/mL Assessment This is a 74-year-old male who initially presented to the emergency department on October 27, 2024, with a chief complaint of chest pain and involuntary movements of the upper extremities. The patient reports that while eating, he developed sudden-onset, sharp, substernal, non-radiating chest pain, followed by transient, involuntary shaking movements of his arms. Associated symptoms included shortness of breath. Initial 12-lead electrocardiogram revealed normal sinus rhythm with frequent premature ventricular contractions (PVCs) and signs of left ventricular hypertrophy (LVH). Cardiac monitoring revealed episodes of non-sustained ventricular tachycardia (NSVT). EMS noted the patient was in ventricular tachycardia on arrival; he subsequently converted to sinus rhythm during transfer to the hospital. His administered one dose of sublingual nitroglycerin prior to EMS arrival. High-sensitivity troponin was elevated at 155 ng/L with an upward trend 179 ng/L and 463 ng/L. Of note, the patient recently underwent a coronary angiogram with successful percutaneous transluminal coronary angioplasty (PTCA), stenting, and lithotripsy of the left anterior descending artery on September 01, 2024. A repeat coronary angiogram on October 23, 2024, showed no significant new lesions requiring intervention. At the time of evaluation, the patient is asymptomatic. He denies chest pain, shortness of breath, palpitations, orthopnea, paroxysmal nocturnal dyspnea (PND), syncope, or near-syncope. He remains hemodynamically stable in normal sinus rhythm at 69 bpm The patients significant medical history includes severe coronary artery disease, status post triple-vessel coronary artery bypass grafting (CABG) in January 2024, congestive heart failure, hypertension, hyperlipidemia, chronic obstructive pulmonary disease (COPD) on home oxygen, end-stage renal disease (ESRD) on hemodialysis, type 2 diabetes mellitus, and BPH. He sees Dr. Cardona in the outpatient setting. Echocardiogram: (10/30/24) LVEF 35-40% Global hypokinesis, inferior akinesis. Mild right ventricular dilation with mildly reduced RV function. Heavily calcified, aortic valve, likely moderate aortic stenosis. Moderate mitral valve regurgitation. Large left plural effusion. CHEST RADIOGRAPH (10/27/24) IMPRESSION: Low lung volumes. Status post CABG. Small left-sided pleural effusion with superimposed infection not excluded. Mild pulmonary edema. CT HEAD WITHOUT CONTRAST (10/27/24) FINDINGS: There is no evidence of intracranial hemorrhage, infarct, extra-axial collection, mass effect, midline shift, herniation or hydrocephalus. Mild ventricular and sulcal enlargement related to mild cerebral volume loss. The vasquez-white differentiation is intact. Visualized paranasal sinuses and mastoid air cells are clear. Soft tissues and osseous structures are unremarkable. IMPRESSION: No intracranial abnormality identified. Plan/Recommendation Proceed with optimized guideline directed medical therapy (GDMT) for HFrEF as tolerated Proceed with close observation for overt signs of fluid overload Proceed with strict intakes, outputs, and daily weights Proceed with close rate and rhythm surveillance Proceed with close hemodynamic surveillance Proceed with optimized blood pressure control Transfuse to sustain HGB levels above 7.0 Sustain Magnesium level greater than 2.0 Sustain Potassium level greater than 4.0 Follow up renal function and electrolytes Arrange for LifeVest Management in Telemetry Will proceed to follow from a cardiac perspective Further recommendations per clinical progression Per discussion with supervising physician, the patient is a potential candidate for ICD placement given history of ventricular arrhythmias and current LVEF of 3540%. Recommend repeat echocardiogram in three weeks. In the interim, patient will wear a LifeVest to mitigate the risk of sudden cardiac . If LVEF remains less than 35% plan for ICD implantation. All available labs, EKGs, and images were personally reviewed Patient's status, findings, and plan of care was discussed and reviewed with supervising physician Dr. Israel, who is in agreement with current plan of care. Plan of care discussed with and agreed upon by patient/Primary RN. Prognosis: Guarded Thank you for allowing me to participate in the care of this patient. Further recommendations will depend on clinical progression, hospitalist, and other c onsultants. Will continue to follow with Primary. If you have any questions, please do not hesitate to contact me. A total of 75 minutes was spent reviewing the patient record, examining the patient, making a diagnostic and therapeutic plan, discussing this plan with medical personnel, following up on diagnostic studies and following the patient for clinical stability excluding any and all procedures. At least 50% of this time was spent in direct, [id number] contact. Plan discussed with: Patient AZEB CHATMAN NP Oct 30, 2024 21:01
--- NOTE | 2024-10-30 22:25 | DVHPN2 ---
Consult Progress Note Subjective Other Systems: Patient was seen and evaluated in follow up. Patient noted to have tachy-remedios events as well as nonsustained V-tach. Given the patient's reduced ejection fraction and tachy-remedios events, the patient may qualify for ICD placement. We will consult EP. Telemetry reviewed. Objective vital signs Vital Sign Date Time Temp Pulse Resp B/P (MAP) Pulse Ox O2 Delivery O2 Flow Rate FiO2 10/30/24 21:00 98.8 74 17 104/47 (66) 99 98.8 10/30/24 20:00 Nasal Cannula* 2 28 Total Intake and Output 10/29/24 10/29/24 10/30/24 15:00 23:00 07:00 Intake Total 972 ml 600 ml Output Total 650 ml Balance 972 ml -50 ml medications Current Medications Medications Dose Ordered Sig/Edson Route Start Time Stop Time Status Last Admin Dose Admin Aspirin 81 mg DAILY PO 10/28/24 10:00 10/30/24 08:40 81 MG Clopidogrel Bisulfate 75 mg DAILY PO 10/28/24 10:00 10/30/24 08:40 75 MG Atorvastatin Calcium 80 mg HS PO 10/28/24 22:00 10/29/24 21:32 80 MG Furosemide 40 mg DAILY PO 10/28/24 10:00 10/30/24 12:08 40 MG Sacubitril/ Valsartan 1 tab BID PO 10/28/24 10:00 10/29/24 21:32 1 TAB Sevelamer HCl 800 mg TIDWM PO 10/28/24 08:00 10/30/24 17:32 800 MG Diagnostic Test (Pha) 1 strip ACHS 10/28/24 07:00 10/30/24 17:30 1 STRIP Insulin Human Regular ACHS SC 10/28/24 07:00 10/30/24 17:35 3 UNITS Dextrose 50 ml UD PRN IV 10/28/24 00:45 Ondansetron HCl 4 mg Q4HP PRN IV 10/28/24 00:45 Acetaminophen 650 mg Q6HP PRN PO 10/28/24 00:45 Nitroglycerin 0.4 mg Q5MINP PRN SL 10/28/24 00:45 Morphine Sulfate 2 mg Q30M PRN IV 10/28/24 00:45 Carvedilol 12.5 mg Q12HR PO 10/29/24 22:00 10/29/24 21:32 12.5 MG Examination: GENERAL:Abnormal (Generalized weakness), LUNGS:Normal, CVS:Normal, SKIN:Normal, NEURO:Normal laboratory and microbiology Laboratory Tests 10/29/24 09:14 10/27/24 20:00 Test 10/29/24 09:14 Range/Units Serum Glucose 143 H 74-106 mg/dL Problem List/Assessment/Plan Problem List/Assessment/Plan Problem List/Assessment/Plan Sick sinus syndrome. Nonsustained ventricular tachycardia. NSTEMI, type II secondary to above. Severe coronary artery disease status post triple-vessel CABG (on ASA and Plavix). Multiple PTCAs x 1 MENDEZ (on aspirin and Plavix). Acute on chronic decompensated HFrEF, NYHA class III. Hypertension. Dyslipidemia. Moderate mitral regurgitation. COPD with home oxygen dependence. End-stage renal disease on hemodialysis. Type 2 diabetes mellitus. History of tobacco use. Plan/Recommendation Continued all current supportive medical care. Patient has been seen by Jazmin Chong NP on my behalf, her and I discussed the plan with the patient. Transthoracic echocardiogram reveals EF 35-40% with global hypokinesis. Continue guideline directed medical therapy for CHF as renal function permits. Continue dual antiplatelet therapy. Lipid-lowering agent. EP consult, possible ICD implantation. Close Cardiac surveillance. Additional plan as per the hospital course. Plan discussed with: Patient Date of Service: Oct 30, 2024 Billing Provider: MOE PISANO MD Cardiology Common Codes: [id number] INP/OBS CARE (High) MOE PISANO MD Oct 30, 2024 22:20
[2024-10-31] VITALS (8 sets, daily range): BP systolic 101–138; BP diastolic 51–64; PULSE 65–78; RESP 16–20; TEMP 97.7–98.8; O2SAT 98–100
--- NOTE | 2024-10-31 08:20 | DVHPN2 ---
Reviewed: Care Plan, H&P, Labs, Medications, Previous Orders, Radiology Changes from previous H/P or p: No Changes Objective Vitals Vital Signs Date Time Temp Pulse Resp B/P (MAP) Pulse Ox O2 Delivery O2 Flow Rate FiO2 10/31/24 05:00 98.8 65 17 110/51 (70) 98 98.8 10/30/24 20:00 Nasal Cannula* 2 28 Intake/Output Intake and Output 10/31/24 07:00 Intake Total 1080 ml Output Total 900 ml Balance 180 ml Intake Oral 1080 ml Output Urine Total 900 ml # Voids 1 Medications Current Medications Medications Dose Ordered Sig/Edson Route Start Time Stop Time Status Last Admin Dose Admin Aspirin 81 mg DAILY PO 10/28/24 10:00 10/30/24 08:40 81 MG Clopidogrel Bisulfate 75 mg DAILY PO 10/28/24 10:00 10/30/24 08:40 75 MG Atorvastatin Calcium 80 mg HS PO 10/28/24 22:00 10/30/24 22:42 80 MG Furosemide 40 mg DAILY PO 10/28/24 10:00 10/30/24 12:08 40 MG Sacubitril/ Valsartan 1 tab BID PO 10/28/24 10:00 10/30/24 22:42 1 TAB Sevelamer HCl 800 mg TIDWM PO 10/28/24 08:00 10/30/24 17:32 800 MG Diagnostic Test (Pha) 1 strip ACHS 10/28/24 07:00 10/31/24 06:34 1 STRIP Insulin Human Regular ACHS SC 10/28/24 07:00 10/31/24 06:34 3 UNITS Dextrose 50 ml UD PRN IV 10/28/24 00:45 Ondansetron HCl 4 mg Q4HP PRN IV 10/28/24 00:45 Acetaminophen 650 mg Q6HP PRN PO 10/28/24 00:45 Nitroglycerin 0.4 mg Q5MINP PRN SL 10/28/24 00:45 Morphine Sulfate 2 mg Q30M PRN IV 10/28/24 00:45 Carvedilol 12.5 mg Q12HR PO 10/29/24 22:00 10/30/24 22:43 12.5 MG Laboratory Results Laboratory Tests 10/27/24 20:00 10/29/24 09:14 Labs and/or images reviewed: Labs reviewed by me, Image(s) reviewed by me Assessment/Plan Assessment/Plan Covering for Dr. Lucas Tachybrady syndrome: Fraction 35 percent, Dr. Guillen ordered Zolls vest, he will repeat echo in three weeks, if no improvement then planning for AICD Acute on chronic respiratory failure *Hzzqg-gy-nctymsp systolic heart failure. * End-stage renal disease, on hemodialysis- today Dr. Floyd follow up * Coronary artery disease with previous stent. * History of coronary artery bypass graft. * Chronic obstructive pulmonary disease. * Anemia, status post transfusion. * Hypertension. * Diabetes mellitus. * History of hepatitis C. * [id number] myocardial infarction, status post recent coronary angiography. Continue current management Time spent 50 minutes Advanced care planning time 20 minutes Patient is full code Plan discussed with: Patient My Orders Orders - CHRIS SIDHU MD Procedure Category Date Status Time Code Status CODE 10/30/24 Transmitted 12:43 Date of Service: Oct 31, 2024 Billing Provider: CHRIS SIDHU MD Common Visit Codes: [id number] INP/OBS CARE(HIGH) CHRIS SIDHU MD Oct 31, 2024 08:20
--- NOTE | 2024-10-31 11:23 | DVHPN2 ---
Progress Note - Dictate Date Seen: Oct 31, 2024 Has the PT tested + for MRSA If YES, has PT been informed?: No Medical Necessity Reason Pt with a Central, PICC or Fol: No Subjective No new complaints vital signs Vital Sign Date Time Temp Pulse Resp B/P (MAP) Pulse Ox O2 Delivery O2 Flow Rate FiO2 10/31/24 10:13 66 104/51 10/31/24 08:00 Nasal Cannula* 2 28 10/31/24 05:00 98.8 17 98 98.8 Total Intake and Output 10/30/24 10/30/24 10/31/24 15:00 23:00 07:00 Intake Total 80 ml 600 ml 400 ml Output Total 400 ml 500 ml Balance 80 ml 200 ml -100 ml medications Current Medications Medications Dose Ordered Sig/Edson Route Start Time Stop Time Status Last Admin Dose Admin Aspirin 81 mg DAILY PO 10/28/24 10:00 10/31/24 10:12 81 MG Clopidogrel Bisulfate 75 mg DAILY PO 10/28/24 10:00 10/31/24 10:13 75 MG Atorvastatin Calcium 80 mg HS PO 10/28/24 22:00 10/30/24 22:42 80 MG Furosemide 40 mg DAILY PO 10/28/24 10:00 10/31/24 10:13 40 MG Sacubitril/ Valsartan 1 tab BID PO 10/28/24 10:00 10/31/24 10:12 1 TAB Sevelamer HCl 800 mg TIDWM PO 10/28/24 08:00 10/31/24 10:12 800 MG Diagnostic Test (Pha) 1 strip ACHS 10/28/24 07:00 10/31/24 06:34 1 STRIP Insulin Human Regular ACHS SC 10/28/24 07:00 10/31/24 06:34 3 UNITS Dextrose 50 ml UD PRN IV 10/28/24 00:45 Ondansetron HCl 4 mg Q4HP PRN IV 10/28/24 00:45 Acetaminophen 650 mg Q6HP PRN PO 10/28/24 00:45 Nitroglycerin 0.4 mg Q5MINP PRN SL 10/28/24 00:45 Morphine Sulfate 2 mg Q30M PRN IV 10/28/24 00:45 Carvedilol 12.5 mg Q12HR PO 10/29/24 22:00 10/31/24 10:13 12.5 MG objective Alert and oriented x 3 NAD Lungs: CTA CV: RR, no pericardial rub No leg edema laboratory and microbiology Laboratory Tests 10/29/24 09:14 10/27/24 20:00 Test 10/29/24 09:14 Range/Units Serum Glucose 143 H 74-106 mg/dL Problem List 1. ESRD, stable 2. HTN 3. Anemia of CKD 4. DM2 5. Ventricular tachycardia HD on MWF schedule Cardiology evaluation Plan discussed with: Patient HI WINTER MD Oct 31, 2024 11:23
--- NOTE | 2024-10-31 20:51 | DVHPN2 ---
Progress Note - Dictate Date Seen: Oct 31, 2024 Has the PT tested + for MRSA If YES, has PT been informed?: No Medical Necessity Reason Pt with a Central, PICC or Fol: No Subjective Patient was seen and evaluated in follow up. Patient is on 2 LPM NC. Patient is complaining of generalized pain. BS are in the 170's. Telemetry reviewed. vital signs Vital Sign Date Time Temp Pulse Resp B/P (MAP) Pulse Ox O2 Delivery O2 Flow Rate FiO2 10/31/24 17:00 98.5 70 20 128/60 (82) 99 98.5 10/31/24 08:00 Nasal Cannula* 2 28 Total Intake and Output 10/30/24 10/30/24 10/31/24 15:00 23:00 07:00 Intake Total 80 ml 600 ml 400 ml Output Total 400 ml 500 ml Balance 80 ml 200 ml -100 ml medications Current Medications Medications Dose Ordered Sig/Edson Route Start Time Stop Time Status Last Admin Dose Admin Aspirin 81 mg DAILY PO 10/28/24 10:00 10/31/24 10:12 81 MG Clopidogrel Bisulfate 75 mg DAILY PO 10/28/24 10:00 10/31/24 10:13 75 MG Atorvastatin Calcium 80 mg HS PO 10/28/24 22:00 10/30/24 22:42 80 MG Furosemide 40 mg DAILY PO 10/28/24 10:00 10/31/24 10:13 40 MG Sacubitril/ Valsartan 1 tab BID PO 10/28/24 10:00 10/31/24 10:12 1 TAB Sevelamer HCl 800 mg TIDWM PO 10/28/24 08:00 10/31/24 18:04 800 MG Diagnostic Test (Pha) 1 strip ACHS 10/28/24 07:00 10/31/24 17:00 1 STRIP Insulin Human Regular ACHS SC 10/28/24 07:00 10/31/24 18:04 3 UNITS Dextrose 50 ml UD PRN IV 10/28/24 00:45 Ondansetron HCl 4 mg Q4HP PRN IV 10/28/24 00:45 Acetaminophen 650 mg Q6HP PRN PO 10/28/24 00:45 Nitroglycerin 0.4 mg Q5MINP PRN SL 10/28/24 00:45 Morphine Sulfate 2 mg Q30M PRN IV 10/28/24 00:45 Carvedilol 12.5 mg Q12HR PO 10/29/24 22:00 10/31/24 10:13 12.5 MG objective GENERAL: Alert and oriented x 3. No acute distress. EYES: PERRL, EOMI. Anicteric. HENT: Moist mucous membranes. LUNGS: Clear to auscultation bilaterally. CARDIOVASCULAR: Regular rate and rhythm. ABDOMEN: Soft, nontender and nondistended. EXTREMITIES: No edema. NEUROLOGIC: No focal neurological deficits. SKIN: Warm, dry. laboratory and microbiology Laboratory Tests 10/29/24 09:14 10/27/24 20:00 Test 10/29/24 09:14 Range/Units Serum Glucose 143 H 74-106 mg/dL Problem List Sick sinus syndrome. Nonsustained ventricular tachycardia. NSTEMI, type II secondary to above. Severe coronary artery disease status post triple-vessel CABG (on ASA and Plavix). Multiple PTCAs x 1 MENDEZ (on aspirin and Plavix). Acute on chronic decompensated HFrEF, NYHA class III. Hypertension. Dyslipidemia. Moderate mitral regurgitation. COPD with home oxygen dependence. End-stage renal disease on hemodialysis. Type 2 diabetes mellitus. History of tobacco use. Assessment/Plan Continued all current supportive medical care. Aspirin, Lipitor, Plavix. Coreg. Diuretics with Lasix. Morphine for pain management. Nitro SL. Entresto. Additional plan as per the hospital course. Dietary Evaluation Review Comments: 1) Collect HbA1c 2) Encourage optimal PO intake 3) Follow-up with cardiology, pulmonology, and nephrology 4) Continue to monitor I&O, labs, and skin integrity Expected Outcomes/Goals: 1) appetite and labs to advance 2) f/u in 3-5 days Plan discussed with: Patient MOE PISANO MD Oct 31, 2024 20:09
[2024-11-01] VITALS (8 sets, daily range): BP systolic 123–147; BP diastolic 56–69; PULSE 65–85; RESP 16–20; TEMP 97.7–98.7; O2SAT 95–100
[2024-11-01 08:06] LABS: Calcium 10.2 mg/dL (8.7-10.4); Chloride 99 mmol/L (98-107); Sodium 137 mmol/L (136-145)
[2024-11-01 08:07] LABS: Anion Gap 10 (5-15); Carbon Dioxide 28 mmol/L (20-31)
[2024-11-01 08:12] LABS: BUN/Creatinine Ratio 6.2 (10.0-20.0)
[2024-11-01 08:13] LABS: Blood Urea Nitrogen 51 mg/dL (9-23); Glucose 157 mg/dL (74-106); Potassium 5.2 mmol/L (3.5-5.1)
--- NOTE | 2024-11-01 09:17 | DVHPN2 ---
Reviewed: Care Plan, H&P, Labs, Medications, Previous Orders, Radiology Changes from previous H/P or p: No Changes Objective Vitals Vital Signs Date Time Temp Pulse Resp B/P (MAP) Pulse Ox O2 Delivery O2 Flow Rate FiO2 11/01/24 07:59 98.0 72 18 135/65 (88) 100 98.0 10/31/24 20:00 Nasal Cannula* 2 28 Intake/Output Intake and Output 11/01/24 07:00 Intake Total 510 ml Output Total 675 ml Balance -165 ml Intake Oral 510 ml Output Urine Total 675 ml # Bowel Movements 2 Medications Current Medications Medications Dose Ordered Sig/Edson Route Start Time Stop Time Status Last Admin Dose Admin Aspirin 81 mg DAILY PO 10/28/24 10:00 10/31/24 10:12 81 MG Clopidogrel Bisulfate 75 mg DAILY PO 10/28/24 10:00 10/31/24 10:13 75 MG Atorvastatin Calcium 80 mg HS PO 10/28/24 22:00 10/31/24 21:44 80 MG Furosemide 40 mg DAILY PO 10/28/24 10:00 10/31/24 10:13 40 MG Sacubitril/ Valsartan 1 tab BID PO 10/28/24 10:00 10/31/24 21:44 1 TAB Sevelamer HCl 800 mg TIDWM PO 10/28/24 08:00 10/31/24 18:04 800 MG Diagnostic Test (Pha) 1 strip ACHS 10/28/24 07:00 11/01/24 06:20 1 STRIP Insulin Human Regular ACHS SC 10/28/24 07:00 11/01/24 06:27 4 UNITS Dextrose 50 ml UD PRN IV 10/28/24 00:45 Ondansetron HCl 4 mg Q4HP PRN IV 10/28/24 00:45 Acetaminophen 650 mg Q6HP PRN PO 10/28/24 00:45 Nitroglycerin 0.4 mg Q5MINP PRN SL 10/28/24 00:45 Morphine Sulfate 2 mg Q30M PRN IV 10/28/24 00:45 Carvedilol 12.5 mg Q12HR PO 10/29/24 22:00 10/31/24 21:45 12.5 MG Laboratory Results Laboratory Tests 10/27/24 20:00 11/01/24 05:24 Chemistry Test 11/01/24 05:24 Calcium Level 10.2 mg/dL (8.7-10.4) Labs and/or images reviewed: Labs reviewed by me, Image(s) reviewed by me Assessment/Plan Assessment/Plan Covering for Dr. Lance Valencia syndrome: Ejection Fraction 35 percent, Dr. Guillen ordered Zolls vest, he will repeat echo in three weeks, if no improvement then planning for AICD Acute on chronic respiratory failure *Jsywj-ne-ledamhm systolic heart failure. * End-stage renal disease, on hemodialysis- today Dr. Floyd follow up * Coronary artery disease with previous stent. * History of coronary artery bypass graft. * Chronic obstructive pulmonary disease. * Anemia, status post transfusion. * Hypertension. * Diabetes mellitus. * History of hepatitis C. * [id number]-[id number] myocardial infarction, status post recent coronary angiography. Continue current management Awaiting Zoloft Vest Plan discussed with: Patient Date of Service: Nov 01, 2024 Billing Provider: CHRIS SIDHU MD Common Visit Codes: [id number] INP/OBS CARE(HIGH) CHRIS SIDHU MD Nov 01, 2024 09:17
--- NOTE | 2024-11-01 12:13 | DVHPN2 ---
Progress Note - Dictate Date Seen: Nov 01, 2024 Has the PT tested + for MRSA If YES, has PT been informed?: No Medical Necessity Reason Pt with a Central, PICC or Fol: No Subjective No new complaints vital signs Vital Sign Date Time Temp Pulse Resp B/P (MAP) Pulse Ox O2 Delivery O2 Flow Rate FiO2 11/01/24 09:14 131/60 11/01/24 09:13 80 11/01/24 08:00 18 Nasal Cannula* 2 28 11/01/24 07:59 98.0 100 98.0 Total Intake and Output 10/31/24 10/31/24 11/01/24 15:00 23:00 07:00 Intake Total 460 ml 50 ml Output Total 600 ml 75 ml Balance -140 ml -25 ml medications Current Medications Medications Dose Ordered Sig/Edson Route Start Time Stop Time Status Last Admin Dose Admin Aspirin 81 mg DAILY PO 10/28/24 10:00 11/01/24 09:14 81 MG Clopidogrel Bisulfate 75 mg DAILY PO 10/28/24 10:00 11/01/24 09:12 75 MG Atorvastatin Calcium 80 mg HS PO 10/28/24 22:00 10/31/24 21:44 80 MG Furosemide 40 mg DAILY PO 10/28/24 10:00 11/01/24 09:14 40 MG Sacubitril/ Valsartan 1 tab BID PO 10/28/24 10:00 11/01/24 09:12 1 TAB Sevelamer HCl 800 mg TIDWM PO 10/28/24 08:00 11/01/24 09:12 800 MG Diagnostic Test (Pha) 1 strip ACHS 10/28/24 07:00 11/01/24 06:20 1 STRIP Insulin Human Regular ACHS SC 10/28/24 07:00 11/01/24 06:27 4 UNITS Dextrose 50 ml UD PRN IV 10/28/24 00:45 Ondansetron HCl 4 mg Q4HP PRN IV 10/28/24 00:45 Acetaminophen 650 mg Q6HP PRN PO 10/28/24 00:45 Nitroglycerin 0.4 mg Q5MINP PRN SL 10/28/24 00:45 Morphine Sulfate 2 mg Q30M PRN IV 10/28/24 00:45 Carvedilol 12.5 mg Q12HR PO 10/29/24 22:00 11/01/24 09:13 12.5 MG objective Alert and oriented x 3 NAD Lungs: CTA CV: RR, no pericardial rub No leg edema laboratory and microbiology Laboratory Tests 11/01/24 05:24 10/27/24 20:00 Test 11/01/24 05:24 Range/Units Serum Glucose 157 H 74-106 mg/dL Problem List 1. ESRD, stable 2. HTN 3. Anemia of CKD, Hb 8.9 g/dL 4. DM2 5. Ventricular tachycardia 6. CAD h/o CABG, needs AICD vs vest 7. Mild hyperkalemia today HD on MWF schedule Increase Epogen dose with HD Cardiology follow up Dietary Evaluation Review Comments: 1) Collect HbA1c 2) Encourage optimal PO intake 3) Follow-up with cardiology, pulmonology, and nephrology 4) Continue to monitor I&O, labs, and skin integrity Expected Outcomes/Goals: 1) appetite and labs to advance 2) f/u in 3-5 days Plan discussed with: Patient HI WINTER MD Nov 01, 2024 12:13
--- NOTE | 2024-11-01 23:30 | DVHPN2 ---
Progress Note - Dictate Date Seen: Nov 01, 2024 Has the PT tested + for MRSA If YES, has PT been informed?: No Medical Necessity Reason Pt with a Central, PICC or Fol: No Subjective Patient was seen and evaluated in follow up. Patient is stable on 2 LPM NC. Patient complains of generalized discomfort. K 5.2, BUN 51, NUCLEAR LICENSING ENGINEER 8.26. Telemetry reviewed. vital signs Vital Sign Date Time Temp Pulse Resp B/P (MAP) Pulse Ox O2 Delivery O2 Flow Rate FiO2 11/01/24 13:00 98.2 71 20 128/60 (82) 98 98.2 11/01/24 08:00 Nasal Cannula* 2 28 Total Intake and Output 10/31/24 10/31/24 11/01/24 15:00 23:00 07:00 Intake Total 460 ml 50 ml Output Total 600 ml 75 ml Balance -140 ml -25 ml medications Current Medications Medications Dose Ordered Sig/Edson Route Start Time Stop Time Status Last Admin Dose Admin Aspirin 81 mg DAILY PO 10/28/24 10:00 11/01/24 09:14 81 MG Clopidogrel Bisulfate 75 mg DAILY PO 10/28/24 10:00 11/01/24 09:12 75 MG Atorvastatin Calcium 80 mg HS PO 10/28/24 22:00 10/31/24 21:44 80 MG Furosemide 40 mg DAILY PO 10/28/24 10:00 11/01/24 09:14 40 MG Sacubitril/ Valsartan 1 tab BID PO 10/28/24 10:00 11/01/24 09:12 1 TAB Sevelamer HCl 800 mg TIDWM PO 10/28/24 08:00 11/01/24 12:23 800 MG Diagnostic Test (Pha) 1 strip ACHS 10/28/24 07:00 11/01/24 11:30 1 STRIP Insulin Human Regular ACHS SC 10/28/24 07:00 11/01/24 12:29 2 UNITS Dextrose 50 ml UD PRN IV 10/28/24 00:45 Ondansetron HCl 4 mg Q4HP PRN IV 10/28/24 00:45 Acetaminophen 650 mg Q6HP PRN PO 10/28/24 00:45 Nitroglycerin 0.4 mg Q5MINP PRN SL 10/28/24 00:45 Morphine Sulfate 2 mg Q30M PRN IV 10/28/24 00:45 Carvedilol 12.5 mg Q12HR PO 10/29/24 22:00 11/01/24 09:13 12.5 MG objective GENERAL: Alert and oriented x 3. No acute distress. EYES: PERRL, EOMI. Anicteric. HENT: Moist mucous membranes. LUNGS: Clear to auscultation bilaterally. CARDIOVASCULAR: Regular rate and rhythm. ABDOMEN: Soft, nontender and nondistended. EXTREMITIES: No edema. NEUROLOGIC: No focal neurological deficits. SKIN: Warm, dry. laboratory and microbiology Laboratory Tests 11/01/24 05:24 10/27/24 20:00 Test 11/01/24 05:24 Range/Units Serum Glucose 157 H 74-106 mg/dL Problem List Sick sinus syndrome. Nonsustained ventricular tachycardia. NSTEMI, type II secondary to above. Severe coronary artery disease status post triple-vessel CABG (on ASA and Plavix). Multiple PTCAs x 1 MENDEZ (on aspirin and Plavix). Acute on chronic decompensated HFrEF, NYHA class III. Hypertension. Dyslipidemia. Moderate mitral regurgitation. COPD with home oxygen dependence. End-stage renal disease on hemodialysis. Type 2 diabetes mellitus. History of tobacco use. Assessment/Plan Continued all current supportive medical care. Aspirin, Lipitor, Plavix. Coreg. Diuretics with Lasix. Morphine for pain management. Nitro SL. Entresto. Additional plan as per the hospital course. Dietary Evaluation Review Comments: 1) Collect HbA1c 2) Encourage optimal PO intake 3) Follow-up with cardiology, pulmonology, and nephrology 4) Continue to monitor I&O, labs, and skin integrity Expected Outcomes/Goals: 1) appetite and labs to advance 2) f/u in 3-5 days Plan discussed with: Patient MOE PISANO MD Nov 01, 2024 15:51
[2024-11-02] VITALS (7 sets, daily range): BP systolic 120–150; BP diastolic 62–71; PULSE 70–88; RESP 16–20; TEMP 98–98.5; O2SAT 97–100
[2024-11-02 08:28] LABS: Basophils # (auto) 0 10 ^3/uL (0-0.2); Basophils % (auto) 0.4 % (0.0-2.0); Eosinophils # (auto) 0.2 10 ^3/uL (0-0.8); Eosinophils % (auto) 2.7 % (0.0-7.0); Hematocrit 29.5 % (41.0-53.0); Hemoglobin 9.7 g/dL (13.5-17.5); Lymphocytes % (auto) 18.5 % (10.0-50.0); Mean Corpuscular Hemoglobin 33.6 pg (28.0-32.0); Mean Corpuscular Hgb Conc. 32.7 g/dL (32.0-36.0); Mean Corpuscular Volume 102.7 fL (80.0-100.0); Monocytes # (auto) 0.9 10 ^3/uL (0-1.3); Monocytes % (auto) 15.6 % (0.0-12.0); Neutrophils # (auto) 3.5 10 ^3/uL (1.6-8.6); Neutrophils % (auto) 62.8 % (37.0-80.0); Nucleated Red Blood Cells % 0.5 %; Platelet Count (auto) 192 10^3/uL (140-450); Red Blood Cells 2.87 10^6/uL (4.5-5.90); Red Cell Distribution Width 18.1 % (11.8-14.3); White Blood Cell 5.6 10^3/uL (4.4-10.8)
[2024-11-02 08:42] LABS: Alanine Aminotransferase 28 U/L (7-40); Albumin 3.7 g/dL (3.2-4.8); Alkaline Phosphatase 100 U/L (46-116); Anion Gap 12 (5-15); Aspartate Aminotransferase 18 U/L (13-40); Calcium 10.2 mg/dL (8.7-10.4); Carbon Dioxide 26 mmol/L (20-31); Chloride 100 mmol/L (98-107); Sodium 138 mmol/L (136-145); Total Protein 6.8 g/dL (5.7-8.2)
[2024-11-02 08:48] LABS: Bilirubin, Total 0.2 mg/dL (0.2-1.0); Blood Urea Nitrogen 70 mg/dL (9-23); Glucose 110 mg/dL (74-106)
[2024-11-02 08:50] LABS: Potassium 5.9 mmol/L (3.5-5.1)
--- NOTE | 2024-11-02 10:24 | DVHPN2 ---
Progress Note Date Seen: Nov 02, 2024 Has the PT tested + for MRSA If YES, has PT been informed?: No Medical Necessity Reason Pt with a Central, PICC or Fol: No Subjective Patient reports: No new complaints Review of Systems: HEENT:Normal, CVS:Normal, RESPIRATORY:Normal, GI:Normal, :Normal, MSK:Normal, NEURO:Normal Objective vital signs Vital Sign Date Time Temp Pulse Resp B/P (MAP) Pulse Ox O2 Delivery O2 Flow Rate FiO2 11/02/24 05:00 98.0 85 20 120/63 (82) 98 98.0 11/01/24 20:00 Nasal Cannula* 2 28 Total Intake and Output 11/01/24 11/01/24 11/02/24 15:00 23:00 07:00 Intake Total 460 ml 500 ml Balance 460 ml 500 ml medications Current Medications Medications Dose Ordered Sig/Edson Route Start Time Stop Time Status Last Admin Dose Admin Aspirin 81 mg DAILY PO 10/28/24 10:00 11/01/24 09:14 81 MG Clopidogrel Bisulfate 75 mg DAILY PO 10/28/24 10:00 11/01/24 09:12 75 MG Atorvastatin Calcium 80 mg HS PO 10/28/24 22:00 11/01/24 22:08 80 MG Furosemide 40 mg DAILY PO 10/28/24 10:00 11/01/24 09:14 40 MG Sacubitril/ Valsartan 1 tab BID PO 10/28/24 10:00 11/01/24 22:08 1 TAB Sevelamer HCl 800 mg TIDWM PO 10/28/24 08:00 11/02/24 08:19 800 MG Diagnostic Test (Pha) 1 strip ACHS 10/28/24 07:00 11/02/24 06:30 1 STRIP Insulin Human Regular ACHS SC 10/28/24 07:00 11/01/24 22:15 3 UNITS Dextrose 50 ml UD PRN IV 10/28/24 00:45 Ondansetron HCl 4 mg Q4HP PRN IV 10/28/24 00:45 Acetaminophen 650 mg Q6HP PRN PO 10/28/24 00:45 Nitroglycerin 0.4 mg Q5MINP PRN SL 10/28/24 00:45 Morphine Sulfate 2 mg Q30M PRN IV 10/28/24 00:45 Carvedilol 12.5 mg Q12HR PO 10/29/24 22:00 11/01/24 22:09 12.5 MG Examination: GENERAL:Normal, HEENT:Normal, NECK:Normal, LUNGS:Normal, CVS:Normal, ABDOMEN:Normal, MSK:Normal, SKIN:Normal, NEURO:Normal, :Normal laboratory and microbiology Laboratory Tests 11/02/24 06:32 Test 11/02/24 06:32 Range/Units Serum Glucose 110 H 74-106 mg/dL Problem List/Assessment/Plan Problem List/Assessment/Plan * v tach/aloc: ?life vest *Vkosh-sl-hcktnse systolic heart failure. * End-stage renal disease, on hemodialysis- today * chronic respiratory failure. * Coronary artery disease with previous stent. * History of coronary artery bypass graft. * Chronic obstructive pulmonary disease. * Anemia, status post transfusion. * Hypertension. * Diabetes mellitus. * History of hepatitis C. * [id number] myocardial infarction, status post recent coronary angiography. * hyperkalemia: hold entresto pending dialysis advance care planning- full code- time spent 19 mins explained to in detail plan of care Plan discussed with: Patient My Orders My Orders Orders - CRAIG NAZARIO MD Procedure Category Date Status Time Basic Metabolic Panel LAB 11/03/24 Verified 06:00 * Senior Mainframe Programmer Analyst CONS 11/02/24 Verified Consult Dietary Evaluation Review Comments: 1) Collect HbA1c 2) Encourage optimal PO intake 3) Follow-up with cardiology, pulmonology, and nephrology 4) Continue to monitor I&O, labs, and skin integrity Expected Outcomes/Goals: 1) appetite and labs to advance 2) f/u in 3-5 days Date of Service: Nov 02, 2024 Billing Provider: CRAIG NAZARIO MD Common Visit Codes: [id number] INP/OBS CARE(HIGH) CRAIG NAZARIO MD Nov 02, 2024 10:24
[2024-11-02] MEDS: SODIUM ZIRCONIUM CYCL 10 GM PAK PO ONE (12:32)
--- NOTE | 2024-11-02 20:00 | DVHPN2 ---
Progress Note - Dictate Date Seen: Nov 02, 2024 Has the PT tested + for MRSA If YES, has PT been informed?: No Medical Necessity Reason Pt with a Central, PICC or Fol: No Subjective seen on HD today at bedside vital signs Vital Sign Date Time Temp Pulse Resp B/P (MAP) Pulse Ox O2 Delivery O2 Flow Rate FiO2 11/02/24 17:00 98.0 77 18 150/71 (97) 97 98.0 11/02/24 08:00 Nasal Cannula* 2 28 Total Intake and Output 11/01/24 11/01/24 11/02/24 15:00 23:00 07:00 Intake Total 460 ml 500 ml Balance 460 ml 500 ml medications Current Medications Medications Dose Ordered Sig/Edson Route Start Time Stop Time Status Last Admin Dose Admin Aspirin 81 mg DAILY PO 10/28/24 10:00 11/01/24 09:14 81 MG Clopidogrel Bisulfate 75 mg DAILY PO 10/28/24 10:00 11/02/24 12:32 75 MG Atorvastatin Calcium 80 mg HS PO 10/28/24 22:00 11/01/24 22:08 80 MG Furosemide 40 mg DAILY PO 10/28/24 10:00 11/01/24 09:14 40 MG Sacubitril/ Valsartan 1 tab BID PO 10/28/24 10:00 11/01/24 22:08 1 TAB Sevelamer HCl 800 mg TIDWM PO 10/28/24 08:00 11/02/24 12:32 800 MG Diagnostic Test (Pha) 1 strip ACHS 10/28/24 07:00 11/02/24 17:00 1 STRIP Insulin Human Regular ACHS SC 10/28/24 07:00 11/02/24 12:41 3 UNITS Dextrose 50 ml UD PRN IV 10/28/24 00:45 Ondansetron HCl 4 mg Q4HP PRN IV 10/28/24 00:45 Acetaminophen 650 mg Q6HP PRN PO 10/28/24 00:45 Nitroglycerin 0.4 mg Q5MINP PRN SL 10/28/24 00:45 Morphine Sulfate 2 mg Q30M PRN IV 10/28/24 00:45 Carvedilol 12.5 mg Q12HR PO 10/29/24 22:00 11/01/24 22:09 12.5 MG objective Alert and oriented x 3 NAD Lungs: CTA CV: RR, no pericardial rub No leg edema laboratory and microbiology Laboratory Tests 11/02/24 06:32 Test 11/02/24 06:32 Range/Units Serum Glucose 110 H 74-106 mg/dL Assessment/Plan Problem List ESRD, stable HTN Anemia of CKD DM2 Ventricular tachycardia Acute on chronic systolic CHF COPD Plan: HD on MWF schedule seen on HD today-tolerating well awaiting life Vest Cardiology evaluation Dietary Evaluation Review Comments: 1) Collect HbA1c 2) Encourage optimal PO intake 3) Follow-up with cardiology, pulmonology, and nephrology 4) Continue to monitor I&O, labs, and skin integrity Expected Outcomes/Goals: 1) appetite and labs to advance 2) f/u in 3-5 days Plan discussed with: Patient, Spouse, Other TRI LI MD Nov 02, 2024 20:00
--- NOTE | 2024-11-02 20:33 | DVHPN2 ---
Progress Note - Dictate Date Seen: Nov 02, 2024 Has the PT tested + for MRSA If YES, has PT been informed?: No Medical Necessity Reason Pt with a Central, PICC or Fol: No Subjective Seen and examined at the bedside within telemetry. Chart reviewed. vital signs Vital Sign Date Time Temp Pulse Resp B/P (MAP) Pulse Ox O2 Delivery O2 Flow Rate FiO2 11/02/24 17:00 98.0 77 18 150/71 (97) 97 98.0 11/02/24 08:00 Nasal Cannula* 2 28 Total Intake and Output 11/01/24 11/01/24 11/02/24 15:00 23:00 07:00 Intake Total 460 ml 500 ml Balance 460 ml 500 ml medications Current Medications Medications Dose Ordered Sig/Edson Route Start Time Stop Time Status Last Admin Dose Admin Aspirin 81 mg DAILY PO 10/28/24 10:00 11/01/24 09:14 81 MG Clopidogrel Bisulfate 75 mg DAILY PO 10/28/24 10:00 11/02/24 12:32 75 MG Atorvastatin Calcium 80 mg HS PO 10/28/24 22:00 11/01/24 22:08 80 MG Furosemide 40 mg DAILY PO 10/28/24 10:00 11/01/24 09:14 40 MG Sacubitril/ Valsartan 1 tab BID PO 10/28/24 10:00 11/01/24 22:08 1 TAB Sevelamer HCl 800 mg TIDWM PO 10/28/24 08:00 11/02/24 12:32 800 MG Diagnostic Test (Pha) 1 strip ACHS 10/28/24 07:00 11/02/24 17:00 1 STRIP Insulin Human Regular ACHS SC 10/28/24 07:00 11/02/24 12:41 3 UNITS Dextrose 50 ml UD PRN IV 10/28/24 00:45 Ondansetron HCl 4 mg Q4HP PRN IV 10/28/24 00:45 Acetaminophen 650 mg Q6HP PRN PO 10/28/24 00:45 Nitroglycerin 0.4 mg Q5MINP PRN SL 10/28/24 00:45 Morphine Sulfate 2 mg Q30M PRN IV 10/28/24 00:45 Carvedilol 12.5 mg Q12HR PO 10/29/24 22:00 11/01/24 22:09 12.5 MG laboratory and microbiology Laboratory Tests 11/02/24 06:32 Test 11/02/24 06:32 Range/Units Serum Glucose 110 H 74-106 mg/dL Assessment/Plan ASSESSMENT/ELECTROPHYSIOLOGY SUGGESTIONS FOR MANAGEMENT: This is a 74-year old male who initially presented (10/27/2024) with reported chest discomfort and shortness of breath. As per notes, upon EMS arrival the patient was reported to be in sustained ventricular tachycardia and symptomatic with change in mental status which the patient had spontaneously converted to sinus rhythm after being transitioned to EMS [facility]. Upon ED arrival, initial 12-lead electrocardiogram had revealed normal sinus rhythm with frequent PVC activity, no acute ischemic changes. Of note, patient himself is known to have an underlying history of multivessel coronary artery disease and is status post previous 3V CABG from [facility] 01/2024 as per notes. Patient is known to have previous history of ventricular arrhythmias which was discovered initially during a recent hospitalization at this facility in August of 2024 which at that time he underwent PTCA and stenting of LAD 09/01/2024. Cardiac catheterization at that time had further revealed patentcy of SVG to diagonal and CONKLIN to circumflex with an occluded SVG involving the RCA. LVEF at that time by ventriculogram was approximated to be 20-25%. Patient had later been admitted and underwent subsequent cardiac catheterization 10/23/2024 revealing patency of previously deployed LAD stent with no further warranted revascularization. Echocardiogram (10/27/2024) had revealed an LVEF of 35-40% which throughout course of present hospitalization patient has been observed to have frequent runs of VT upon telemetry review. As the patient presented with probable sustained VT with evidence for witnessed change in mentation, Electrophysiology services were involved by Interventional Cardiology services to evaluate the patient for potential AICD implantation. In observation of the aforementioned above, patient himself benefits from undergoing AICD implantation for secondary prevention against sudden cardiac . Benefits, risks, and alternatives were discussed at length with both the patient and his Cami who have agreed to the plan of care. Therefore, will tentatively plan for AICD implantation with Dr. Israel this upcoming Saturday. Patient to be consented and NPO status at midnight (11/04/2024). To sustain potassium levels greater than 4.0. To sustain magnesium levels greater than 2.0. Proceed with beta-mark therapy at max tolerated dose. Consider addition of Amiodarone if warranted for management of underlying ventricular arrhythmias. Hold all anticoagulation/antiplatelet therapy for tentative plan of procedure. Remainder of cardiac management as per Interventional Cardiology. Will proceed to follow from an EP perspective. Proceed with close rate and rhythm surveillance Proceed with close hemodynamic surveillance Proceed with optimized blood pressure control Transfuse to sustain HGB levels above 7.0 Sustain Magnesium level greater than 2.0 Sustain Potassium level greater than 4.0 Follow up renal function and electrolytes Management in Telemetry Will proceed to follow from an EP perspective Further recommendations per clinical progression All available labs, EKGs, and images were personally reviewed Patient's status, findings, and plan of care was discussed and reviewed with supervising physician Dr. Israel, who is in agreement with current plan of care. Plan of care discussed with and agreed upon by patient/Primary RN. Prognosis: Guarded Thank you for allowing me to participate in the care of this patient. Further recommendations will depend on clinical progression, hospitalist, and other consultants. Will continue to follow with Primary. If you have any questions, please do not hesitate to contact me. A total of 75 minutes was spent reviewing the patient record, examining the patient, making a diagnostic and therapeutic plan, discussing this plan with medical personnel, following up on diagnostic studies and following the patient for clinical stability excluding any and all procedures. At least 50% of this time was spent in direct, [id number] contact. Dietary Evaluation Review Comments: 1) Collect HbA1c 2) Encourage optimal PO intake 3) Follow-up with cardiology, pulmonology, and nephrology 4) Continue to monitor I&O, labs, and skin integrity Expected Outcomes/Goals: 1) appetite and labs to advance 2) f/u in 3-5 days Plan discussed with: Patient (Patient, Patients Cmai, and Primary RN ) TERESA CASTILLO ENVIRONMENTAL EMERGENCIES ASSISTANT Nov 02, 2024 20:32
[2024-11-02] MEDS: EPOETIN ALFA-EPBX 4,000 UNIT/ML VIAL SC ONE (22:04)
[2024-11-03] VITALS (8 sets, daily range): BP systolic 100–162; BP diastolic 49–77; PULSE 64–93; RESP 16–20; TEMP 97.8–98.7; O2SAT 94–100
[2024-11-03 07:35] LABS: Anion Gap 10 (5-15); Carbon Dioxide 28 mmol/L (20-31); Chloride 100 mmol/L (98-107); Potassium 4.5 mmol/L (3.5-5.1); Sodium 138 mmol/L (136-145)
[2024-11-03 07:36] LABS: Calcium 9.9 mg/dL (8.7-10.4)
[2024-11-03 07:41] LABS: BUN/Creatinine Ratio 5.7 (10.0-20.0)
[2024-11-03 07:43] LABS: Blood Urea Nitrogen 40 mg/dL (9-23); Glucose 110 mg/dL (74-106)
--- NOTE | 2024-11-03 10:27 | DVHPN2 ---
Progress Note Date Seen: Nov 03, 2024 Has the PT tested + for MRSA If YES, has PT been informed?: No Medical Necessity Reason Pt with a Central, PICC or Fol: No Subjective Patient reports: No new complaints Review of Systems: HEENT:Normal, CVS:Normal, RESPIRATORY:Normal, GI:Normal, :Normal, MSK:Normal, NEURO:Normal Objective vital signs Vital Sign Date Time Temp Pulse Resp B/P (MAP) Pulse Ox O2 Delivery O2 Flow Rate FiO2 11/03/24 09:00 98.3 64 19 100/51 (67) 96 98.3 11/03/24 07:30 Nasal Cannula* 2 28 Total Intake and Output 11/02/24 11/02/24 11/03/24 15:00 23:00 07:00 Intake Total 480 ml 436 ml Balance 480 ml 436 ml medications Current Medications Medications Dose Ordered Sig/Edson Route Start Time Stop Time Status Last Admin Dose Admin Aspirin 81 mg DAILY PO 10/28/24 10:00 11/01/24 09:14 81 MG Clopidogrel Bisulfate 75 mg DAILY PO 10/28/24 10:00 11/02/24 12:32 75 MG Atorvastatin Calcium 80 mg HS PO 10/28/24 22:00 11/02/24 22:05 80 MG Furosemide 40 mg DAILY PO 10/28/24 10:00 11/01/24 09:14 40 MG Sacubitril/ Valsartan 1 tab BID PO 10/28/24 10:00 11/02/24 22:04 1 TAB Sevelamer HCl 800 mg TIDWM PO 10/28/24 08:00 11/03/24 09:04 800 MG Diagnostic Test (Pha) 1 strip ACHS 10/28/24 07:00 11/03/24 06:13 1 STRIP Insulin Human Regular ACHS SC 10/28/24 07:00 11/03/24 06:14 3 UNITS Dextrose 50 ml UD PRN IV 10/28/24 00:45 Ondansetron HCl 4 mg Q4HP PRN IV 10/28/24 00:45 Acetaminophen 650 mg Q6HP PRN PO 10/28/24 00:45 Nitroglycerin 0.4 mg Q5MINP PRN SL 10/28/24 00:45 Morphine Sulfate 2 mg Q30M PRN IV 10/28/24 00:45 Carvedilol 12.5 mg Q12HR PO 10/29/24 22:00 11/02/24 22:04 12.5 MG Examination: GENERAL:Normal, HEENT:Normal, NECK:Normal, LUNGS:Normal, LUNGS:Abnormal (on oxygen), CVS:Normal, ABDOMEN:Normal, MSK:Normal, SKIN:Normal, NEURO:Normal, :Normal laboratory and microbiology Laboratory Tests 11/03/24 07:07 11/02/24 06:32 Test 11/03/24 07:07 Range/Units Serum Glucose 110 H 74-106 mg/dL Problem List/Assessment/Plan Problem List/Assessment/Plan * v tach/aloc: dw dr Velasco, consider AICD *[id number] systolic heart failure. * End-stage renal disease, on hemodialysis * chronic respiratory failure. * Coronary artery disease with previous stent. * History of coronary artery bypass graft. * Chronic obstructive pulmonary disease. * Anemia, status post transfusion. * Hypertension. * Diabetes mellitus. * History of hepatitis C. * [id number] myocardial infarction, status post recent coronary angiography. * hyperkalemia: hold entresto pending dialysis advance care planning- full code- time spent 19 mins explained to in detail plan of care Plan discussed with: Patient Dietary Evaluation Review Comments: 1) Collect HbA1c 2) Encourage optimal PO intake 3) Follow-up with cardiology, pulmonology, and nephrology 4) Continue to monitor I&O, labs, and skin integrity Expected Outcomes/Goals: 1) appetite and labs to advance 2) f/u in 3-5 days Date of Service: Nov 03, 2024 Billing Provider: CRAIG NAZARIO MD Common Visit Codes: [id number] INP/OBS CARE(HIGH) CRAIG NAZARIO MD Nov 03, 2024 10:27
[2024-11-03] MEDS: SODIUM CHL 0.9% 1000 ML BAG XX ONE (10:48)
--- NOTE | 2024-11-03 13:58 | DVHPN2 ---
Progress Note - Dictate Date Seen: Nov 03, 2024 Has the PT tested + for MRSA If YES, has PT been informed?: No Medical Necessity Reason Pt with a Central, PICC or Fol: No Subjective seen on HD today at bedside vital signs Vital Sign Date Time Temp Pulse Resp B/P (MAP) Pulse Ox O2 Delivery O2 Flow Rate FiO2 11/03/24 13:05 97.8 64 20 116/49 (71) 97 97.8 11/03/24 07:30 Nasal Cannula* 2 28 Total Intake and Output 11/02/24 11/02/24 11/03/24 15:00 23:00 07:00 Intake Total 480 ml 436 ml Balance 480 ml 436 ml medications Current Medications Medications Dose Ordered Sig/Edson Route Start Time Stop Time Status Last Admin Dose Admin Aspirin 81 mg DAILY PO 10/28/24 10:00 11/01/24 09:14 81 MG Clopidogrel Bisulfate 75 mg DAILY PO 10/28/24 10:00 11/02/24 12:32 75 MG Atorvastatin Calcium 80 mg HS PO 10/28/24 22:00 11/02/24 22:05 80 MG Furosemide 40 mg DAILY PO 10/28/24 10:00 11/03/24 10:47 40 MG Sacubitril/ Valsartan 1 tab BID PO 10/28/24 10:00 11/02/24 22:04 1 TAB Sevelamer HCl 800 mg TIDWM PO 10/28/24 08:00 11/03/24 12:04 800 MG Diagnostic Test (Pha) 1 strip ACHS 10/28/24 07:00 11/03/24 11:07 1 STRIP Insulin Human Regular ACHS SC 10/28/24 07:00 11/03/24 11:06 2 UNITS Dextrose 50 ml UD PRN IV 10/28/24 00:45 Ondansetron HCl 4 mg Q4HP PRN IV 10/28/24 00:45 Acetaminophen 650 mg Q6HP PRN PO 10/28/24 00:45 Nitroglycerin 0.4 mg Q5MINP PRN SL 10/28/24 00:45 Morphine Sulfate 2 mg Q30M PRN IV 10/28/24 00:45 Carvedilol 12.5 mg Q12HR PO 10/29/24 22:00 11/02/24 22:04 12.5 MG objective Alert and oriented x 3 NAD Lungs: CTA CV: RR, no pericardial rub No leg edema laboratory and microbiology Laboratory Tests 11/03/24 07:07 11/02/24 06:32 Test 11/03/24 07:07 Range/Units Serum Glucose 110 H 74-106 mg/dL Assessment/Plan Problem List ESRD, stable HTN Anemia of CKD DM2 Ventricular tachycardia Acute on chronic systolic CHF COPD Plan: HD on schedule s/p HD yesterday Next HD on Saturday awaiting life Vest Cardiology evaluation KRISTEN post HD as needed, goal Hb: 10-11 g/dl Dietary Evaluation Review Comments: 1) Collect HbA1c 2) Encourage optimal PO intake 3) Follow-up with cardiology, pulmonology, and nephrology 4) Continue to monitor I&O, labs, and skin integrity Expected Outcomes/Goals: 1) appetite and labs to advance 2) f/u in 3-5 days Plan discussed with: Patient TRI LI MD Nov 03, 2024 13:58
--- NOTE | 2024-11-03 20:46 | DVHPN2 ---
Progress Note - Dictate Date Seen: Nov 03, 2024 Has the PT tested + for MRSA If YES, has PT been informed?: No Medical Necessity Reason Pt with a Central, PICC or Fol: No vital signs Vital Sign Date Time Temp Pulse Resp B/P (MAP) Pulse Ox O2 Delivery O2 Flow Rate FiO2 11/03/24 17:13 98.0 93 17 148/69 (95) 100 98.0 11/03/24 07:30 Nasal Cannula* 2 28 Total Intake and Output 11/02/24 11/02/24 11/03/24 15:00 23:00 07:00 Intake Total 480 ml 436 ml Balance 480 ml 436 ml medications Current Medications Medications Dose Ordered Sig/Edson Route Start Time Stop Time Status Last Admin Dose Admin Aspirin 81 mg DAILY PO 10/28/24 10:00 11/01/24 09:14 81 MG Clopidogrel Bisulfate 75 mg DAILY PO 10/28/24 10:00 11/02/24 12:32 75 MG Atorvastatin Calcium 80 mg HS PO 10/28/24 22:00 11/02/24 22:05 80 MG Furosemide 40 mg DAILY PO 10/28/24 10:00 11/03/24 10:47 40 MG Sacubitril/ Valsartan 1 tab BID PO 10/28/24 10:00 11/02/24 22:04 1 TAB Sevelamer HCl 800 mg TIDWM PO 10/28/24 08:00 11/03/24 18:22 800 MG Diagnostic Test (Pha) 1 strip ACHS 10/28/24 07:00 11/03/24 18:22 1 STRIP Insulin Human Regular ACHS SC 10/28/24 07:00 11/03/24 18:21 2 UNITS Dextrose 50 ml UD PRN IV 10/28/24 00:45 Ondansetron HCl 4 mg Q4HP PRN IV 10/28/24 00:45 Acetaminophen 650 mg Q6HP PRN PO 10/28/24 00:45 Nitroglycerin 0.4 mg Q5MINP PRN SL 10/28/24 00:45 Morphine Sulfate 2 mg Q30M PRN IV 10/28/24 00:45 Carvedilol 12.5 mg Q12HR PO 10/29/24 22:00 11/02/24 22:04 12.5 MG laboratory and microbiology Laboratory Tests 11/03/24 07:07 11/02/24 06:32 Test 11/03/24 07:07 Range/Units Serum Glucose 110 H 74-106 mg/dL Assessment/Plan ASSESSMENT/ELECTROPHYSIOLOGY SUGGESTIONS FOR MANAGEMENT: This is a 74-year old male who initially presented (10/27/2024) with reported chest discomfort and shortness of breath. As per notes, upon EMS arrival the patient was reported to be in sustained ventricular tachycardia and symptomatic with change in mental status which the patient had spontaneously converted to sinus rhythm after being transitioned to EMS [facility]. Upon ED arrival, initial 12-lead electrocardiogram had revealed normal sinus rhythm with frequent PVC activity, no acute ischemic changes. Of note, patient himself is known to have an underlying history of multivessel coronary artery disease and is status post previous 3V CABG from [facility] 01/2024 as per notes. Patient is known to have previous history of ventricular arrhythmias which was discovered initially during a recent hospitalization at this facility in August of 2024 which at that time he underwent PTCA and stenting of LAD 09/01/2024. Cardiac catheterization at that time had further revealed patentcy of SVG to diagonal and CONKLIN to circumflex with an occluded SVG involving the RCA. LVEF at that time by ventriculogram was approximated to be 20-25%. Patient had later been admitted and underwent subsequent cardiac catheterization 10/23/2024 revealing patency of previously deployed LAD stent with no further warranted revascularization. Echocardiogram (10/27/2024) had revealed an LVEF of 35-40% which throughout course of present hospitalization patient has been observed to have frequent runs of VT upon telemetry review. As the patient presented with probable sustained VT with evidence for witnessed change in mentation, Electrophysiology services were involved by Interventional Cardiology services to evaluate the patient for potential AICD implantation. In observation of the aforementioned above, patient himself benefits from undergoing AICD implantation for secondary prevention against sudden cardiac . Benefits, risks, and alternatives were discussed at length with both the patient and his Cami who have agreed to the plan of care. Therefore, will tentatively plan for AICD implantation with Dr. Israel this upcoming Saturday. Patient to be consented and NPO status at midnight (11/04/2024). To sustain potassium levels greater than 4.0. To sustain magnesium levels greater than 2.0. Proceed with beta-mark therapy at max tolerated dose. Consider addition of Amiodarone if warranted for management of underlying ventricular arrhythmias. Hold all anticoagulation/antiplatelet therapy for tentative plan of procedure. Remainder of cardiac management as per Interventional Cardiology. Will proceed to follow from an EP perspective. Proceed with close rate and rhythm surveillance Proceed with close hemodynamic surveillance Proceed with optimized blood pressure control Transfuse to sustain HGB levels above 7.0 Sustain Magnesium level greater than 2.0 Sustain Potassium level greater than 4.0 Follow up renal function and electrolytes Management in Telemetry Will proceed to follow from an EP perspective Further recommendations per clinical progression All available labs, EKGs, and images were personally reviewed Patient's status, findings, and plan of care was discussed and reviewed with supervising physician Dr. Israel, who is in agreement with current plan of care. Plan of care discussed with and agreed upon by patient/Primary RN. Prognosis: Guarded Thank you for allowing me to participate in the care of this patient. Further recommendations will depend on clinical progression, hospitalist, and other consultants. Will continue to follow with Primary. If you have any questions, please do not hesitate to contact me. A total of 75 minutes was spent reviewing the patient record, examining the patient, making a diagnostic and therapeutic plan, discussing this plan with medical personnel, following up on diagnostic studies and following the patient for clinical stability excluding any and all procedures. At least 50% of this time was spent in direct, [id number] contact. Dietary Evaluation Review Comments: 1) Collect HbA1c 2) Encourage optimal PO intake 3) Follow-up with cardiology, pulmonology, and nephrology 4) Continue to monitor I&O, labs, and skin integrity Expected Outcomes/Goals: 1) appetite and labs to advance 2) f/u in 3-5 days Plan discussed with: Patient (Patient and Primary RN ) TERESA CASTILLO [employer] Nov 03, 2024 20:45
[2024-11-04] VITALS (13 sets, daily range): BP systolic 115–154; BP diastolic 22–70; PULSE 75–91; RESP 13–22; TEMP 97.9–98.6; O2SAT 91–100
[2024-11-04] MEDS ORDERED: SODIUM CHL 0.9% 1000 ML BAG XX ONE (07:00)
--- NOTE | 2024-11-04 07:00 | DVH ---
EXAM: XR Chest, 1 View CLINICAL INDICATION: procedure TECHNIQUE: Frontal view of the chest. COMPARISON: XY CHEST PORTABLE on DOS: 10/27/24, XY CHEST PORTABLE on DOS: 10/21/24, XY CHEST PORTABLE on DOS: 08/31/24, XY CHEST XRAY 1 VIEW on DOS: 03/24/24, XY CHEST PORTABLE on DOS: 01/07/24 FINDINGS: LUNGS AND PLEURAL SPACES: Left basilar atelectasis or pneumonia. Left pleural effusion. No pneumo thorax. HEART: Unremarkable. No cardiomegaly. MEDIASTINUM: Unremarkable. Normal mediastinal contour. BONES/JOINTS: Unremarkable. No acute fracture. OTHER FINDINGS: . No change. IMPRESSION: 1. Left basilar atelectasis or pneumonia. 2. Left pleural effusion.
[2024-11-04 07:27] LABS: INR 1.17 (0.9-1.15); Partial Thromboplastin Time 30.6 SEC (24.5-34.5); Prothrombin Time 12.2 sec (9.3-11.8)
[2024-11-04 07:31] LABS: Basophils # (auto) 0 10 ^3/uL (0-0.2); Basophils % (auto) 0.5 % (0.0-2.0); Eosinophils # (auto) 0.1 10 ^3/uL (0-0.8); Hemoglobin 8.7 g/dL (13.5-17.5); Lymphocytes # (auto) 0.9 10 ^3/uL (0.4-5.4); Monocytes # (auto) 0.8 10 ^3/uL (0-1.3); Nucleated Red Blood Cells % 0.2 %; White Blood Cell 5.4 10^3/uL (4.4-10.8)
[2024-11-04 07:33] LABS: Alanine Aminotransferase 37 U/L (7-40); Albumin 3.4 g/dL (3.2-4.8); Alkaline Phosphatase 84 U/L (46-116); Anion Gap 12 (5-15); BUN/Creatinine Ratio 6.7 (10.0-20.0); Calcium 10.3 mg/dL (8.7-10.4); Carbon Dioxide 24 mmol/L (20-31); Chloride 102 mmol/L (98-107); Glucose 89 mg/dL (74-106); Sodium 138 mmol/L (136-145); Total Protein 6.4 g/dL (5.7-8.2)
[2024-11-04 07:34] LABS: Aspartate Aminotransferase 30 U/L (13-40); Eosinophils % (auto) 1.9 % (0.0-7.0); Lymphocytes % (auto) 16.8 % (10.0-50.0); Mean Corpuscular Hemoglobin 37.2 pg (28.0-32.0); Mean Corpuscular Hgb Conc. 34.7 g/dL (32.0-36.0); Mean Corpuscular Volume 107.3 fL (80.0-100.0); Monocytes % (auto) 15.3 % (0.0-12.0); Neutrophils # (auto) 3.5 10 ^3/uL (1.6-8.6); Neutrophils % (auto) 65.5 % (37.0-80.0); Platelet Count (auto) 174 10^3/uL (140-450); Red Blood Cells 2.33 10^6/uL (4.5-5.90); Red Cell Distribution Width 17.8 % (11.8-14.3)
[2024-11-04 07:36] LABS: Bilirubin, Total 0.2 mg/dL (0.2-1.0); Blood Urea Nitrogen 61 mg/dL (9-23); Potassium 5.3 mmol/L (3.5-5.1)
[2024-11-04 09:43] LABS: Urine Bacteria FEW /hpf (None Seen); Urine Blood Negative /uL (Negative); Urine Clarity Clear (Clear); Urine Color Light-Yellow (Yellow); Urine Protein, UAD 2+ (Negative); Urine Specific Gravity 1.012 (1.001-1.035); Urine Squamous Epithelial Cell None Seen /hpf (<5); Urine Urobilinogen Normal (Negative); Urine WBC 17 /HPF (0-3)
--- NOTE | 2024-11-04 10:26 | DVHPN2 ---
Progress Note Date Seen: Nov 04, 2024 Has the PT tested + for MRSA If YES, has PT been informed?: No Medical Necessity Reason Pt with a Central, PICC or Fol: No Subjective Patient reports: No new complaints Review of Systems: HEENT:Normal, CVS:Normal, RESPIRATORY:Normal, GI:Normal, :Normal, MSK:Normal, NEURO:Normal Objective vital signs Vital Sign Date Time Temp Pulse Resp B/P (MAP) Pulse Ox O2 Delivery O2 Flow Rate FiO2 11/04/24 05:00 98.3 85 18 118/59 (78) 98 98.3 11/03/24 20:00 Nasal Cannula* 2 28 Total Intake and Output 11/03/24 11/03/24 11/04/24 15:00 23:00 07:00 Intake Total 240 ml 550 ml 240 ml Output Total 250 ml Balance 240 ml 300 ml 240 ml medications Current Medications Medications Dose Ordered Sig/Edson Route Start Time Stop Time Status Last Admin Dose Admin Aspirin 81 mg DAILY PO 10/28/24 10:00 11/01/24 09:14 81 MG Clopidogrel Bisulfate 75 mg DAILY PO 10/28/24 10:00 11/02/24 12:32 75 MG Atorvastatin Calcium 80 mg HS PO 10/28/24 22:00 11/03/24 21:42 80 MG Furosemide 40 mg DAILY PO 10/28/24 10:00 11/03/24 10:47 40 MG Sacubitril/ Valsartan 1 tab BID PO 10/28/24 10:00 11/03/24 21:41 1 TAB Sevelamer HCl 800 mg TIDWM PO 10/28/24 08:00 11/03/24 18:22 800 MG Diagnostic Test (Pha) 1 strip ACHS 10/28/24 07:00 11/04/24 06:05 1 STRIP Insulin Human Regular ACHS SC 10/28/24 07:00 11/03/24 21:40 4 UNITS Dextrose 50 ml UD PRN IV 10/28/24 00:45 Ondansetron HCl 4 mg Q4HP PRN IV 10/28/24 00:45 Acetaminophen 650 mg Q6HP PRN PO 10/28/24 00:45 Nitroglycerin 0.4 mg Q5MINP PRN SL 10/28/24 00:45 Morphine Sulfate 2 mg Q30M PRN IV 10/28/24 00:45 Carvedilol 12.5 mg Q12HR PO 10/29/24 22:00 11/03/24 21:41 12.5 MG Examination: GENERAL:Normal, HEENT:Normal, NECK:Normal, LUNGS:Normal, LUNGS:Abnormal (on oxygen), CVS:Normal, ABDOMEN:Normal, MSK:Normal, SKIN:Normal, NEURO:Normal, :Normal laboratory and microbiology Laboratory Tests 11/04/24 05:59 Test 11/04/24 05:59 Range/Units Serum Glucose 89 74-106 mg/dL Problem List/Assessment/Plan Problem List/Assessment/Plan * v tach/aloc: dw dr Velasco, aicd planned today *Dmags-pj-uoqeale systolic heart failure. * End-stage renal disease, on hemodialysis- today * chronic respiratory failure. * Coronary artery disease with previous stent. * History of coronary artery bypass graft. * Chronic obstructive pulmonary disease. * Anemia, status post transfusion. * Hypertension. * Diabetes mellitus. * History of hepatitis C. * Kjn-BK-gmlcnroes myocardial infarction, status post recent coronary angiography. * hyperkalemia: hold entresto pending dialysis advance care planning- full code- time spent 19 mins explained to in detail plan of care Plan discussed with: Patient My Orders My Orders Orders - CRAIG NAZARIO MD Procedure Category Date Status Time Electrocardigram EKG 11/04/24 Logged 04:59 Chest Portable XY 11/04/24 Resulted 04:59 Type And Screen BBK 11/04/24 Logged 04:59 Basic Metabolic Panel LAB 11/05/24 Verified 06:00 Complete Blood Count LAB 11/05/24 Verified 06:00 Chest Portable XY 11/05/24 Verified 06:00 Dietary Evaluation Review Comments: 1) Collect HbA1c 2) Encourage optimal PO intake 3) Follow-up with cardiology, pulmonology, and nephrology 4) Continue to monitor I&O, labs, and skin integrity Expected Outcomes/Goals: 1) appetite and labs to advance 2) f/u in 3-5 days Date of Service: Nov 04, 2024 Billing Provider: CRAIG NAZARIO MD Common Visit Codes: [id number] INP/OBS CARE(HIGH) CRAIG NAZARIO MD Nov 04, 2024 10:26
[2024-11-04] MEDS: fentaNYL CITRATE 100 MCG/2 ML VL ONE (15:39)
[2024-11-04] MEDS: VANCOMYCIN 1GM/200ML PM 200 ML IV ONE (15:39)
[2024-11-04] MEDS: MIDAZOLAM HCL 2MG/2ML 2ml VIAL (1mg/ml) ONE (15:39)
[2024-11-04] MEDS: VANCOMYCIN HCL 1000 MG VL ONE (15:39)
[2024-11-04] MEDS: LIDOCAINE 2%HCL (LOCAL ANESTH.) INJ 20ML MDV ONE (15:39)
[2024-11-04] MEDS: IODIXANOL 320MG/ML 100ML BTL IV ONE (15:43)
--- NOTE | 2024-11-04 16:27 | DVHPN2 ---
Progress Note - Dictate Date Seen: Nov 04, 2024 Has the PT tested + for MRSA If YES, has PT been informed?: No Medical Necessity Reason Pt with a Central, PICC or Fol: No Subjective seen on HD today at bedside vital signs Vital Sign Date Time Temp Pulse Resp B/P (MAP) Pulse Ox O2 Delivery O2 Flow Rate FiO2 11/04/24 13:00 98.6 86 18 130/70 (90) 94 98.6 11/04/24 07:45 Nasal Cannula* 2 28 Total Intake and Output 11/03/24 11/03/24 11/04/24 15:00 23:00 07:00 Intake Total 240 ml 550 ml 240 ml Output Total 250 ml Balance 240 ml 300 ml 240 ml medications Current Medications Medications Dose Ordered Sig/Edson Route Start Time Stop Time Status Last Admin Dose Admin Aspirin 81 mg DAILY PO 10/28/24 10:00 11/01/24 09:14 81 MG Clopidogrel Bisulfate 75 mg DAILY PO 10/28/24 10:00 11/02/24 12:32 75 MG Atorvastatin Calcium 80 mg HS PO 10/28/24 22:00 11/03/24 21:42 80 MG Furosemide 40 mg DAILY PO 10/28/24 10:00 11/03/24 10:47 40 MG Sacubitril/ Valsartan 1 tab BID PO 10/28/24 10:00 11/03/24 21:41 1 TAB Sevelamer HCl 800 mg TIDWM PO 10/28/24 08:00 11/03/24 18:22 800 MG Diagnostic Test (Pha) 1 strip ACHS 10/28/24 07:00 11/04/24 06:05 1 STRIP Insulin Human Regular ACHS SC 10/28/24 07:00 11/03/24 21:40 4 UNITS Dextrose 50 ml UD PRN IV 10/28/24 00:45 Ondansetron HCl 4 mg Q4HP PRN IV 10/28/24 00:45 Acetaminophen 650 mg Q6HP PRN PO 10/28/24 00:45 Nitroglycerin 0.4 mg Q5MINP PRN SL 10/28/24 00:45 Morphine Sulfate 2 mg Q30M PRN IV 10/28/24 00:45 Carvedilol 12.5 mg Q12HR PO 10/29/24 22:00 11/03/24 21:41 12.5 MG objective Alert and oriented x 3 NAD Lungs: CTA CV: RR, no pericardial rub No leg edema laboratory and microbiology Laboratory Tests 11/04/24 05:59 Test 11/04/24 05:59 Range/Units Serum Glucose 89 74-106 mg/dL Assessment/Plan Assessment: ESRD on HD HTN Anemia of CKD DM2 Ventricular tachycardia Acute on chronic systolic CHF COPD Plan: HD on MWF schedule HD - Saturday plan for AICD placement Cardiology evaluation KRISTEN post HD as needed, goal Hb: 10-11 g/dl Dietary Evaluation Review Comments: 1) Collect HbA1c 2) Encourage optimal PO intake 3) Follow-up with cardiology, pulmonology, and nephrology 4) Continue to monitor I&O, labs, and skin integrity Expected Outcomes/Goals: 1) appetite and labs to advance 2) f/u in 3-5 days Plan discussed with: Patient TRI LI MD Nov 04, 2024 16:27
--- NOTE | 2024-11-04 17:59 | DVHPN2 ---
Progress Note - Dictate Date Seen: Nov 04, 2024 Has the PT tested + for MRSA If YES, has PT been informed?: No Medical Necessity Reason Pt with a Central, PICC or Fol: No Subjective Seen and examined at the bedside within telemetry. Chart reviewed. vital signs Vital Sign Date Time Temp Pulse Resp B/P (MAP) Pulse Ox O2 Delivery O2 Flow Rate FiO2 11/04/24 13:00 98.6 86 18 130/70 (90) 94 98.6 11/04/24 07:45 Nasal Cannula* 2 28 Total Intake and Output 11/03/24 11/03/24 11/04/24 15:00 23:00 07:00 Intake Total 240 ml 550 ml 240 ml Output Total 250 ml Balance 240 ml 300 ml 240 ml medications Current Medications Medications Dose Ordered Sig/Edson Route Start Time Stop Time Status Last Admin Dose Admin Aspirin 81 mg DAILY PO 10/28/24 10:00 11/01/24 09:14 81 MG Clopidogrel Bisulfate 75 mg DAILY PO 10/28/24 10:00 11/02/24 12:32 75 MG Atorvastatin Calcium 80 mg HS PO 10/28/24 22:00 11/03/24 21:42 80 MG Furosemide 40 mg DAILY PO 10/28/24 10:00 11/03/24 10:47 40 MG Sacubitril/ Valsartan 1 tab BID PO 10/28/24 10:00 11/03/24 21:41 1 TAB Sevelamer HCl 800 mg TIDWM PO 10/28/24 08:00 11/03/24 18:22 800 MG Diagnostic Test (Pha) 1 strip ACHS 10/28/24 07:00 11/04/24 06:05 1 STRIP Insulin Human Regular ACHS SC 10/28/24 07:00 11/03/24 21:40 4 UNITS Dextrose 50 ml UD PRN IV 10/28/24 00:45 Ondansetron HCl 4 mg Q4HP PRN IV 10/28/24 00:45 Acetaminophen 650 mg Q6HP PRN PO 10/28/24 00:45 Nitroglycerin 0.4 mg Q5MINP PRN SL 10/28/24 00:45 Morphine Sulfate 2 mg Q30M PRN IV 10/28/24 00:45 Carvedilol 12.5 mg Q12HR PO 10/29/24 22:00 11/03/24 21:41 12.5 MG laboratory and microbiology Laboratory Tests 11/04/24 05:59 Test 11/04/24 05:59 Range/Units Serum Glucose 89 74-106 mg/dL Assessment/Plan ASSESSMENT/ELECTROPHYSIOLOGY SUGGESTIONS FOR MANAGEMENT: This is a 74-year old male who initially presented (10/27/2024) with reported chest discomfort and shortness of breath. As per notes, upon EMS arrival the patient was reported to be in sustained ventricular tachycardia and symptomatic with change in mental status which the patient had spontaneously converted to sinus rhythm after being transitioned to EMS [facility]. Upon ED arrival, initial 12-lead electrocardiogram had revealed normal sinus rhythm with frequent PVC activity, no acute ischemic changes. Of note, patient himself is known to have an underlying history of multivessel coronary artery disease and is status post previous 3V CABG from [facility] 01/2024 as per notes. Patient is known to have previous history of ventricular arrhythmias which was discovered initially during a recent hospitalization at this facility in August of 2024 which at that time he underwent PTCA and stenting of LAD 09/01/2024. Cardiac catheterization at that time had further revealed patentcy of SVG to diagonal and CONKLIN to circumflex with an occluded SVG involving the RCA. LVEF at that time by ventriculogram was approximated to be 20-25%. Patient had later been admitted and underwent subsequent cardiac catheterization 10/23/2024 revealing patency of previously deployed LAD stent with no further warranted revascularization. Echocardiogram (10/27/2024) had revealed an LVEF of 35-40% which throughout course of present hospitalization patient has been observed to have frequent runs of VT upon telemetry review. As the patient presented with probable sustained VT with evidence for witnessed change in mentation, Electrophysiology services were involved by Interventional Cardiology services to evaluate the patient for potential AICD implantation. In observation of the aforementioned above, patient himself benefits from undergoing AICD implantation for secondary prevention against sudden cardiac . Benefits, risks, and alternatives were discussed at length with both the patient and his Cami who have agreed to the plan of care. Therefore, patient is planned for AICD this afternoon with Dr. Israel. Patient is consented and to remain NPO status. To sustain potassium levels greater than 4.0. To sustain magnesium levels greater than 2.0. Proceed with beta-mark therapy at max tolerated dose. Consider addition of Amiodarone if warranted for management of underlying ventricular arrhythmias. Hold all anticoagulation/antiplatelet therapy for tentative plan of procedure. Remainder of cardiac management as per Interventional Cardiology. Will proceed to follow from an EP perspective. Proceed with close rate and rhythm surveillance Proceed with close hemodynamic surveillance Proceed with optimized blood pressure control Transfuse to sustain HGB levels above 7.0 Sustain Magnesium level greater than 2.0 Sustain Potassium level greater than 4.0 Follow up renal function and electrolytes Management in Telemetry Will proceed to follow from an EP perspective Further recommendations per clinical progression All available labs, EKGs, and images were personally reviewed Patient's status, findings, and plan of care was discussed and reviewed with supervising physician Dr. Israel, who is in agreement with current plan of care. Plan of care discussed with and agreed upon by patient/Primary RN. Prognosis: Guarded Thank you for allowing me to participate in the care of this patient. Further recommendations will depend on clinical progression, hospitalist, and other consultants. Will continue to follow with Primary. If you have any questions, please do not hesitate to contact me. A total of 75 minutes was spent reviewing the patient record, examining the patient, making a diagnostic and therapeutic plan, discussing this plan with medical personnel, following up on diagnostic studies and following the patient for clinical stability excluding any and all procedures. At least 50% of this time was spent in direct, [id number] contact. Dietary Evaluation Review Comments: 1) Collect HbA1c 2) Encourage optimal PO intake 3) Follow-up with cardiology, pulmonology, and nephrology 4) Continue to monitor I&O, labs, and skin integrity Expected Outcomes/Goals: 1) appetite and labs to advance 2) f/u in 3-5 days Plan discussed with: Patient (Patient and Primary RN ) TERESA CASTILLOP Nov 04, 2024 17:59
--- NOTE | 2024-11-04 18:19 | DVH ---
EXAM: XR Chest, 1 View CLINICAL INDICATION: S/P PACEMAKER TECHNIQUE: Frontal view of the chest. COMPARISON: XY CHEST PORTABLE on DOS: 11/04/24, XY CHEST PORTABLE on DOS: 10/27/24, XY CHEST PORTABLE on DOS: 10/21/24, XY CHEST PORTABLE on DOS: 08/31/24, XY CHEST XRAY 1 VIEW on DOS: 03/24/24 FINDINGS: LUNGS AND PLEURAL SPACES: Left basilar atelectasis or pneumonia. Left pleural effusion. No pneumo thorax. HEART: Unremarkable. No cardiomegaly. MEDIASTINUM: Unremarkable. Normal mediastinal contour. BONES/JOINTS: Unremarkable. No acute fracture. TUBES, LINES AND DEVICES: Right-sided cardiac pacemaker. OTHER FINDINGS: . . . IMPRESSION: 1. Left basilar atelectasis or pneumonia. 2. Left pleural effusion.
[2024-11-04] MEDS ORDERED: VANCOMYCIN 1GM/200ML PM 200 ML IV SCH (18:30)
--- NOTE | 2024-11-04 20:59 | DVHOP2 ---
Operative Report 11/04/24 Dictated By: Joe Israel MD INDICATIONS: Ischemic cardiomyopathy, CHF II, Sinus, QRS less than 120 ms Symptomatic Ventricular tachycardia, change of mental status, presyncope EF 35-40% Proceed with implantation of AICD for secondary prevention of sudden cardiac PROCEDURES: 1. Implantation of AICD lead in right ventricle, active fixation, DX from [employer], Sensing A, sense and pace V 2. Implantation of the dual chamber AICD generator, DX from [employer], MRI. 3. Fluoroscopy images and interpretation. 4. Interrogation and programming of the device. 5. Conscious sedation with fentanyl and Versed for one hour 6. Right subclavian venogram, one axillary accesses obtained PROCEDURE IN DETAILS: 1. After obtaining informed consent with explanation of risks, benefits and alternatives, the patient agreed upon the planned procedure, implantation of dual chamber AICD, Dx secondary to ischemic cardiomyopathy. Under a standard fashion, local and systemic anesthetic, conscious sedation with fentanyl and Versed, supervised by myself, right deltopectoral area was prepped and draped. Rt deltopectoral pocket was made, one axillary access was obtained 1. Through the first access, AICD lead was advanced into the right interventricular septum. Sensing was 11 mv with pacing threshold 0.5 v at o.5 m s. Impedance of 671 ohms. Sensing A 1.1 MV (not augmented) 3. New dual-chamber AICD generator, DX from [employer] was connected to the lead. . The pocket was irrigated with antibiotic solution. Antibiotic powder was poured into the pocket. The skin was closed in 2 layers and at the end was stapled. CONCLUSION: 1. Status post successful implantation of dual chamber AICD, DX [employer], Device was programmed into VDI lower rate of 40 bpm 2. There was no immediate complication. JOE ISRAEL MD Nov 04, 2024 20:59
[2024-11-04] MEDS: EPOETIN ALFA-EPBX 4,000 UNIT/ML VIAL SC ONE (21:26)
[2024-11-04] MEDS: ACETAMINOPHEN 325 MG TAB PO PRN (21:41)
[2024-11-05] VITALS (9 sets, daily range): BP systolic 103–129; BP diastolic 31–64; PULSE 70–85; RESP 17–19; TEMP 97.6–98; O2SAT 95–100
[2024-11-05] MEDS: VANCOMYCIN 1GM/200ML PM 200 ML IV SCH (04:01)
--- NOTE | 2024-11-05 06:03 | DVH ---
CHEST RADIOGRAPH Indication: s/p AICD implantation follow up Technique: Single frontal view of the chest was obtained Comparison: XY CHEST PORTABLE on DOS: 11/04/24 FINDINGS: Lines and Tubes: AICD/pacemaker with right ventricular lead noted. Left axillary vascular stent. Lungs: Left basilar opacities. Right chest is obscured by the patient's hand. Pleura: No effusion. No pneumothorax. Cardiomediastinal contours: Unremarkable Bones: No acute osseous abnormality. Status post median sternotomy. IMPRESSION: Left basilar opacities which may reflect atelectasis or pneumonia.
[2024-11-05 06:26] LABS: Basophils # (auto) 0 10 ^3/uL (0-0.2); Basophils % (auto) 0.3 % (0.0-2.0); Eosinophils # (auto) 0.1 10 ^3/uL (0-0.8); Hematocrit 29.7 % (41.0-53.0); Hemoglobin 9.8 g/dL (13.5-17.5); Lymphocytes # (auto) 0.7 10 ^3/uL (0.4-5.4); Mean Corpuscular Hemoglobin 33.3 pg (28.0-32.0); Mean Corpuscular Hgb Conc. 32.8 g/dL (32.0-36.0); Mean Corpuscular Volume 101.3 fL (80.0-100.0); Monocytes # (auto) 0.7 10 ^3/uL (0-1.3); Monocytes % (auto) 16.6 % (0.0-12.0); Neutrophils # (auto) 2.9 10 ^3/uL (1.6-8.6); Neutrophils % (auto) 65.1 % (37.0-80.0); Nucleated Red Blood Cells % 0.2 %; Platelet Count (auto) 172 10^3/uL (140-450); Red Blood Cells 2.94 10^6/uL (4.5-5.90); Red Cell Distribution Width 17.3 % (11.8-14.3); White Blood Cell 4.4 10^3/uL (4.4-10.8)
[2024-11-05 06:33] LABS: Anion Gap 10 (5-15); Carbon Dioxide 28 mmol/L (20-31); Chloride 102 mmol/L (98-107); Potassium 4.8 mmol/L (3.5-5.1); Sodium 140 mmol/L (136-145)
[2024-11-05 06:34] LABS: Calcium 10.3 mg/dL (8.7-10.4)
--- NOTE | 2024-11-05 06:34 | DVHPN2 ---
Progress Note - Dictate Date Seen: November 05, 2024 Has the PT tested + for MRSA If YES, has PT been informed?: No Medical Necessity Reason Pt with a Central, PICC or Fol: No Subjective Seen and examined at the bedside within telemetry. Chart reviewed. vital signs Vital Sign Date Time Temp Pulse Resp B/P (MAP) Pulse Ox O2 Delivery O2 Flow Rate FiO2 11/05/24 01:00 97.7 84 19 124/51 (75) 100 97.7 11/04/24 20:00 Nasal Cannula* 2 28 Total Intake and Output 11/04/24 11/04/24 11/05/24 15:00 23:00 07:00 Intake Total 0 ml Output Total 50 ml Balance -50 ml medications Current Medications Medications Dose Ordered Sig/Edson Route Start Time Stop Time Status Last Admin Dose Admin Aspirin 81 mg DAILY PO 10/28/24 10:00 11/01/24 09:14 81 MG Clopidogrel Bisulfate 75 mg DAILY PO 10/28/24 10:00 11/02/24 12:32 75 MG Atorvastatin Calcium 80 mg HS PO 10/28/24 22:00 11/04/24 21:33 80 MG Furosemide 40 mg DAILY PO 10/28/24 10:00 11/03/24 10:47 40 MG Sacubitril/ Valsartan 1 tab BID PO 10/28/24 10:00 11/04/24 21:26 1 TAB Sevelamer HCl 800 mg TIDWM PO 10/28/24 08:00 11/03/24 18:22 800 MG Diagnostic Test (Pha) 1 strip ACHS 10/28/24 07:00 11/05/24 06:30 1 STRIP Insulin Human Regular ACHS SC 10/28/24 07:00 11/05/24 06:29 4 UNITS Dextrose 50 ml UD PRN IV 10/28/24 00:45 Ondansetron HCl 4 mg Q4HP PRN IV 10/28/24 00:45 Acetaminophen 650 mg Q6HP PRN PO 10/28/24 00:45 11/05/24 06:27 650 MG Nitroglycerin 0.4 mg Q5MINP PRN SL 10/28/24 00:45 Morphine Sulfate 2 mg Q30M PRN IV 10/28/24 00:45 Carvedilol 12.5 mg Q12HR PO 10/29/24 22:00 11/04/24 21:41 12.5 MG Doxycycline Monohydrate 100 mg Q12HR PO 11/05/24 10:00 Vancomycin HCl 200 ml @ 200 mls/hr Q12H IV 11/05/24 04:00 11/05/24 16:59 11/05/24 04:01 200 MLS/HR laboratory and microbiology Test 11/05/24 05:55 Range/Units Serum Glucose Pending Assessment/Plan ASSESSMENT/ELECTROPHYSIOLOGY SUGGESTIONS FOR MANAGEMENT: This is a 74-year old male who initially presented (10/27/2024) with reported chest discomfort and shortness of breath. As per notes, upon EMS arrival the patient was reported to be in sustained ventricular tachycardia and symptomatic with change in mental status which the patient had spontaneously converted to sinus rhythm after being transitioned to EMS [facility]. Upon ED arrival, initial 12-lead electrocardiogram had revealed normal sinus rhythm with frequent PVC activity, no acute ischemic changes. Of note, patient himself is known to have an underlying history of multivessel coronary artery disease and is status post previous 3V CABG from [facility] 01/2024 as per notes. Patient is known to have previous history of ventricular arrhythmias which was discovered initially during a recent hospitalization at this facility in August of 2024 which at that time he underwent PTCA and stenting of LAD 09/01/2024. Cardiac catheterization at that time had further revealed patentcy of SVG to diagonal and CONKLIN to circumflex with an occluded SVG involving the RCA. LVEF at that time by ventriculogram was approximated to be 20-25%. Patient had later been admitted and underwent subsequent cardiac catheterization 10/23/2024 revealing patency of previously deployed LAD stent with no further warranted revascularization. Echocardiogram (10/27/2024) had revealed an LVEF of 35-40% which throughout course of present hospitalization patient has been observed to have frequent runs of VT upon telemetry review. As the patient presented with probable sustained VT with evidence for witnessed change in mentation, Electrophysiology services were involved by Interventional Cardiology services to evaluate the patient for potential AICD implantation. Status post dual-chamber DX Biotronic AICD implantation 11/04/[address] Israel. Subsequent device interrogation revealed VDI mode with lower rate limit of 40bpm. 0% [employer]. Adequate sensing/pacing parameters, overall normal functioning device. Post-operative chest imaging had revealed no evidence for pneumothorax. Dressing to site of implantation remains CDI. To proceed with sling to right upper extremity. To proceed with Doxycycline 100mg po twice daily for a total of 14 doses. Ok to resume DAPT 5/4 as patient is known to have undergone recent coronary revascularization with PCI. Will need to follow up with outpatient cardiology services within 7 days of device implantation for staple removal. To above mentioned was discussed at length with the patient which he is agreeable to the plan of care. Remains stable from an EP perspec tive. Proceed with close rate and rhythm surveillance Proceed with close hemodynamic surveillance Proceed with optimized blood pressure control Transfuse to sustain HGB levels above 7.0 Sustain Magnesium level greater than 2.0 Sustain Potassium level greater than 4.0 Follow up renal function and electrolytes Management in Telemetry Will proceed to follow from an EP perspective Further recommendations per clinical progression All available labs, EKGs, and images were personally reviewed Patient's status, findings, and plan of care was discussed and reviewed with supervising physician Dr. Israel, who is in agreement with current plan of care. Plan of care discussed with and agreed upon by patient/Primary RN. Prognosis: Guarded Thank you for allowing me to participate in the care of this patient. Further recommendations will depend on clinical progression, hospitalist, and other consultants. Will continue to follow with Primary. If you have any questions, please do not hesitate to contact me. A total of 75 minutes was spent reviewing the patient record, examining the patient, making a diagnostic and therapeutic plan, discussing this plan with medical personnel, following up on diagnostic studies and following the patient for clinical stability excluding any and all procedures. At least 50% of this time was spent in direct, [id number] contact. Dietary Evaluation Review Comments: 1) Collect HbA1c 2) Encourage optimal PO intake 3) Follow-up with cardiology, pulmonology, and nephrology 4) Continue to monitor I&O, labs, and skin integrity Expected Outcomes/Goals: 1) appetite and labs to advance 2) f/u in 3-5 days Plan discussed with: Patient TERESA CASTILLO Rogelio POLO November 05, 2024 06:34
[2024-11-05 06:39] LABS: BUN/Creatinine Ratio 6.1 (10.0-20.0)
[2024-11-05 06:40] LABS: Blood Urea Nitrogen 42 mg/dL (9-23); Glucose 165 mg/dL (74-106)
--- NOTE | 2024-11-05 08:42 | ECG ---
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
[2024-11-05] MEDS: DOXYCYCLINE 100 MG TAB/CAP PO SCH (09:04)
--- NOTE | 2024-11-05 10:27 | DVHDS2 ---
Discharge Summary Date of Admission Oct 28, 2024 at 00:45 Date of Discharge: November 05, 2024 Labs/Diagnostic Data: Laboratory Results Test 11/05/24 06:19 11/05/24 05:55 11/04/24 09:23 11/04/24 05:59 POC Glucose 202 mg/dl (70-106) White Blood Count 4.4 10^3/uL (4.4-10.8) Red Blood Count 2.94 10^6/uL (4.5-5.90) Hemoglobin 9.8 g/dL (13.5-17.5) Hematocrit 29.7 % (41.0-53.0) Mean Corpuscular Volume 101.3 fL (80.0-100.0) Mean Corpuscular Hemoglobin 33.3 pg (28.0-32.0) Mean Corpuscular Hemoglobin Concent 32.8 g/dL (32.0-36.0) Red Cell Distribution Width 17.3 % (11.8-14.3) Platelet Count 172 10^3/uL (140-450) Mean Platelet Volume 7.2 fL (6.9-10.8) Neutrophils (%) (Auto) 65.1 % (37.0-80.0) Lymphocytes (%) (Auto) 16.0 % (10.0-50.0) Monocytes (%) (Auto) 16.6 % (0.0-12.0) Eosinophils (%) (Auto) 2.0 % (0.0-7.0) Basophils (%) (Auto) 0.3 % (0.0-2.0) Neutrophils # (Auto) 2.9 10 ^3/uL (1.6-8.6) Lymphocytes # (Auto) 0.7 10 ^3/uL (0.4-5.4) Monocytes # (Auto) 0.7 10 ^3/uL (0-1.3) Eosinophils # (Auto) 0.1 10 ^3/uL (0-0.8) Basophils # (Auto) 0 10 ^3/uL (0-0.2) Nucleated Red Blood Cells 0.2 % Sodium Level 140 mmol/L (136-145) Potassium Level 4.8 mmol/L (3.5-5.1) Chloride Level 102 mmol/L (98-107) Carbon Dioxide Level 28 mmol/L (20-31) Anion Gap 10 (5-15) Blood Urea Nitrogen 42 mg/dL (9-23) Creatinine 6.85 mg/dL (0.700-1.30) Glomerular Filtration Rate Calc 8 mL/min (>90) BUN/Creatinine Ratio 6.1 (10.0-20.0) Serum Glucose 165 mg/dL (74-106) Calcium Level 10.3 mg/dL (8.7-10.4) Urine Color Light-yellow (Yellow) Urine Clarity Clear (Clear) Urine pH 8.0 (5.0-9.0) Urine Specific [place] 1.012 (1.001-1.035) Urine Protein 2+ (Negative) Urine Ketones Negative (Negative) Urine Blood Negative /uL (Negative) Urine Nitrite Negative (Negative) Urine Bilirubin Negative (Negative) Urine Urobilinogen Normal mg/dL (Negative) Urine Leukocyte Esterase 1+ /uL (Negative) Urine RBC 1 /hpf (0 - 3) Urine Microscopic WBC 17 /HPF (0-3) Urine Squamous Epithelial Cells None seen /hpf (<5) Urine Bacteria Few /hpf (None Seen) Urine Glucose 2+ mg/dL (Normal) Prothrombin Time 12.2 sec (9.3-11.8) Prothrombin Time INR 1.17 (0.9-1.15) Activated Partial Thromboplast Time 30.6 SEC (24.5-34.5) Total Bilirubin 0.2 mg/dL (0.2-1.0) Aspartate Amino Transferase (AST) 30 U/L (13-40) Alanine Aminotransferase (ALT) 37 U/L (7-40) Alkaline Phosphatase 84 U/L (46-116) Total Protein 6.4 g/dL (5.7-8.2) Albumin 3.4 g/dL (3.2-4.8) Test 10/30/24 09:05 10/29/24 09:14 10/27/24 23:07 10/27/24 20:00 Hepatitis B Surface Antigen Negative (Negative) Magnesium Level 2.1 mg/dL (1.6-2.6) Troponin I High Sensitivity 463 ng/L (</=54) B-Type Natriuretic Peptide > 5000.00 pg/mL (0-100) Other Laboratory Tests 11/05/24 05:55 Brief Hx & Hospital Course: SEE DICTATED NOTE Condition at Discharge: Fair Final Diagnosis/Problems List V TACH Discharge Disposition: Home Discharge Instruct/Medications Diet: Renal Activity: No Restrictions, As Tolerated Follow Up/Referral: FU WITH DR DANIELS IN 1 WK FU [facility]/PCP Medications: RESUME HOME MEDS SCRIPT TO PHARMACY Discharge Statement: "Patient was advised to return to the ER or call 911 if any headaches, dizziness, shortness of breath, chest pain, abdominal pain, bleeding, fevers, or worsening of medical condition. Patient was counseled about treatment plan, medications, possible side effects, patientverbalized understanding. All questions were answered to the best of my ability. This discharge took greater then 30 minutes in planning, reviewing documentation, counseling the patient, and discussing with other team members." ASSESSMENT ASSESSMENT Assessment V TACH Date of Service: November 05, 2024 Billing Provider: CRAIG NAZARIO MD Common Visit Codes: 73398-STI/OBS DISCH DAY >30min CRAIG NAZARIO MD November 05, 2024 10:27
[2024-11-05] MEDS ORDERED: DOXY-286 PO (10:28)
[2024-11-05] MEDS ORDERED: HYDR1TAB97 PO (10:28)
--- NOTE | 2024-11-05 11:58 | DVHDS ---
DATE OF DISCHARGE: 11/05/2024 HISTORY OF PRESENT ILLNESS: The patient is a 74-year-old gentleman who was admitted after he had an episode of syncope and unresponsiveness and was noted to be in ventricular tachycardia. The patient has history of end-stage renal disease, COPD, chronic respiratory failure, hypertension, coronary artery status post CABG and diabetes mellitus. HOSPITAL COURSE: The patient was seen in Cardiology consult by Dr. Diaz as well as Dr. Israel. The patient was continued on hemodialysis during his hospitalization. Head CT was negative. The patient had an AICD placed by Dr. Israel on 11/04/2024. Echocardiogram done showed ejection fraction of 35%-40% with global hypokinesis. He will now be discharged home to resume his home medications as well as to be on [place] p.r.n. for pain and doxycycline 100 mg p.o. b.i.d. for 7 days. He will follow up with his dialysis clinic as well as with Dr. Israel. The patient will have home health for physical therapy. FINAL DIAGNOSES: * Ventricular tachycardia, status post AICD placement. * [id number] systolic heart failure. * End-stage renal disease, on hemodialysis. * Chronic respiratory failure. * History of coronary artery disease with previous stent. * History of CABG. * COPD. * Anemia. * Hypertension. * Diabetes mellitus. * History of hepatitis C. * . Time spent in discharge plan and review of plan with the patient, nursing and family was 39 minutes. MD DARIN Leyva/GIANA/JENNIFER TID: [id number] RECEIPT: [id number]
--- NOTE | 2024-11-05 16:22 | DVHPN2 ---
Progress Note - Dictate Date Seen: November 05, 2024 Has the PT tested + for MRSA If YES, has PT been informed?: No Medical Necessity Reason Pt with a Central, PICC or Fol: No Subjective seen on HD today at bedside vital signs Vital Sign Date Time Temp Pulse Resp B/P (MAP) Pulse Ox O2 Delivery O2 Flow Rate FiO2 11/05/24 13:45 107/48 (67) 11/05/24 13:23 97.6 70 18 99 97.6 11/05/24 07:57 Nasal Cannula* 2 28 Total Intake and Output 11/04/24 11/04/24 11/05/24 15:00 23:00 07:00 Intake Total 0 ml 500 ml Output Total 50 ml 0 ml Balance -50 ml 500 ml medications Current Medications Medications Dose Ordered Sig/Edson Route Start Time Stop Time Status Last Admin Dose Admin Aspirin 81 mg DAILY PO 10/28/24 10:00 11/01/24 09:14 81 MG Clopidogrel Bisulfate 75 mg DAILY PO 10/28/24 10:00 11/02/24 12:32 75 MG Atorvastatin Calcium 80 mg HS PO 10/28/24 22:00 11/04/24 21:33 80 MG Furosemide 40 mg DAILY PO 10/28/24 10:00 11/05/24 09:09 40 MG Sacubitril/ Valsartan 1 tab BID PO 10/28/24 10:00 11/05/24 09:09 1 TAB Sevelamer HCl 800 mg TIDWM PO 10/28/24 08:00 11/05/24 11:42 800 MG Diagnostic Test (Pha) 1 strip ACHS 10/28/24 07:00 11/05/24 11:34 1 STRIP Insulin Human Regular ACHS SC 10/28/24 07:00 11/05/24 11:38 3 UNITS Dextrose 50 ml UD PRN IV 10/28/24 00:45 Ondansetron HCl 4 mg Q4HP PRN IV 10/28/24 00:45 Acetaminophen 650 mg Q6HP PRN PO 10/28/24 00:45 11/05/24 06:27 650 MG Nitroglycerin 0.4 mg Q5MINP PRN SL 10/28/24 00:45 Morphine Sulfate 2 mg Q30M PRN IV 10/28/24 00:45 Carvedilol 12.5 mg Q12HR PO 10/29/24 22:00 11/05/24 09:09 12.5 MG Doxycycline Monohydrate 100 mg Q12HR PO 11/05/24 10:00 11/05/24 09:04 100 MG Vancomycin HCl 200 ml @ 200 mls/hr Q12H IV 11/05/24 04:00 11/05/24 16:59 11/05/24 16:00 200 MLS/HR objective Alert and oriented x 3 NAD Lungs: CTA CV: RR, no pericardial rub No leg edema laboratory and microbiology Laboratory Tests 11/05/24 05:55 Test 11/05/24 05:55 Range/Units Serum Glucose 165 H 74-106 mg/dL Assessment/Plan Assessment: ESRD on HD HTN Anemia of CKD DM2 Ventricular tachycardia, s/p Dual chamber AICD on 11/04/24 Acute on chronic systolic CHF COPD Plan: HD on MWF schedule s/p HD yesterday Next HD on Saturday if still in house s/p AICD placement Cardiology evaluation KRISTEN post HD as needed, goal Hb: 10-11 g/dl Dietary Evaluation Review Comments: 1) Collect HbA1c 2) Encourage optimal PO intake 3) Follow-up with cardiology, pulmonology, and nephrology 4) Continue to monitor I&O, labs, and skin integrity Expected Outcomes/Goals: 1) appetite and labs to advance 2) f/u in 3-5 days Plan discussed with: Patient TRI LI MD November 05, 2024 16:22
[2024-11-06 01:00] VITALS: BP 131/67; PULSE 81; RESP 16; TEMP 97.9; O2SAT 98
[2024-11-06 05:00] VITALS: BP 121/59; PULSE 81; RESP 18; TEMP 98.4; O2SAT 100
--- NOTE | 2024-11-06 06:46 | DVHPN2 ---
Progress Note - Dictate Date Seen: November 06, 2024 Has the PT tested + for MRSA If YES, has PT been informed?: No Medical Necessity Reason Pt with a Central, PICC or Fol: No Subjective Seen and examined at the bedside within telemetry. Chart reviewed. vital signs Vital Sign Date Time Temp Pulse Resp B/P (MAP) Pulse Ox O2 Delivery O2 Flow Rate FiO2 11/06/24 05:00 98.4 81 18 121/59 (79) 100 98.4 11/05/24 20:00 Nasal Cannula* 2 28 Total Intake and Output 11/05/24 11/05/24 11/06/24 15:00 23:00 07:00 Intake Total 725 ml 376 ml Output Total 800 ml 100 ml Balance -75 ml 276 ml medications Current Medications Medications Dose Ordered Sig/Edson Route Start Time Stop Time Status Last Admin Dose Admin Aspirin 81 mg DAILY PO 10/28/24 10:00 11/01/24 09:14 81 MG Clopidogrel Bisulfate 75 mg DAILY PO 10/28/24 10:00 11/02/24 12:32 75 MG Atorvastatin Calcium 80 mg HS PO 10/28/24 22:00 11/05/24 23:08 80 MG Furosemide 40 mg DAILY PO 10/28/24 10:00 11/05/24 09:09 40 MG Sacubitril/ Valsartan 1 tab BID PO 10/28/24 10:00 11/05/24 23:09 1 TAB Sevelamer HCl 800 mg TIDWM PO 10/28/24 08:00 11/05/24 11:42 800 MG Diagnostic Test (Pha) 1 strip ACHS 10/28/24 07:00 11/06/24 06:28 1 STRIP Insulin Human Regular ACHS SC 10/28/24 07:00 11/06/24 06:29 3 UNITS Dextrose 50 ml UD PRN IV 10/28/24 00:45 Ondansetron HCl 4 mg Q4HP PRN IV 10/28/24 00:45 Acetaminophen 650 mg Q6HP PRN PO 10/28/24 00:45 11/05/24 06:27 650 MG Nitroglycerin 0.4 mg Q5MINP PRN SL 10/28/24 00:45 Carvedilol 12.5 mg Q12HR PO 10/29/24 22:00 11/05/24 23:09 12.5 MG Doxycycline Monohydrate 100 mg Q12HR PO 11/05/24 10:00 11/05/24 23:09 100 MG laboratory and microbiology Laboratory Tests 11/05/24 05:55 Test 11/05/24 05:55 Range/Units Serum Glucose 165 H 74-106 mg/dL Assessment/Plan ASSESSMENT/ELECTROPHYSIOLOGY SUGGESTIONS FOR MANAGEMENT: This is a 74-year old male who initially presented (10/27/2024) with reported chest discomfort and shortness of breath. As per notes, upon EMS arrival the patient was reported to be in sustained ventricular tachycardia and symptomatic with change in mental status which the patient had spontaneously converted to sinus rhythm after being transitioned to EMS [facility]. Upon ED arrival, initial 12-lead electrocardiogram had revealed normal sinus rhythm with frequent PVC activity, no acute ischemic changes. Of note, patient himself is known to have an underlying history of multivessel coronary artery disease and is status post previous 3V CABG from [facility] 01/2024 as per notes. Patient is known to have previous history of ventricular arrhythmias which was discovered initially during a recent hospitalization at this facility in August of 2024 which at that time he underwent PTCA and stenting of LAD 09/01/2024. Cardiac catheterization at that time had further revealed patentcy of SVG to diagonal and CONKLIN to circumflex with an occluded SVG involving the RCA. LVEF at that time by ventriculogram was approximated to be 20-25%. Patient had later been admitted and underwent subsequent cardiac catheterization 10/23/2024 revealing patency of previously deployed LAD stent with no further warranted revascularization. Echocardiogram (10/27/2024) had revealed an LVEF of 35-40% which throughout course of present hospitalization patient has been observed to have frequent runs of VT upon telemetry review. As the patient presented with probable sustained VT with evidence for witnessed change in mentation, Electrophysiology services were involved by Interventional Cardiology services to evaluate the patient for potential AICD implantation. Status post dual-chamber DX Biotronic AICD implantation 11/04/[address] Israel. Subsequent device interrogation revealed VDI mode with lower rate limit of 40bpm. 0% [employer]. Adequate sensing/pacing parameters, overall normal functioning device. Post-operative chest imaging had revealed no evidence for pneumothorax. Dressing to site of implantation remains CDI. To proceed with sling to right upper extremity. To proceed with Doxycycline 100mg po twice daily for a total of 14 doses. Ok to resume DAPT 5/ as patient is known to have undergone recent coronary revascularization with PCI. Will need to follow up with outpatient cardiology services within 7 days of device implantation for staple removal. To above mentioned was discussed at length with the patient which he is agreeable to the plan of care. Remains stable from an EP perspective. Proceed with close rate and rhythm surveillance Proceed with close hemodynamic surveillance Proceed with optimized blood pressure control Transfuse to sustain HGB levels above 7.0 Sustain Magnesium level greater than 2.0 Sustain Potassium level greater than 4.0 Follow up renal function and electrolytes Management in Telemetry Will proceed to follow from an EP perspective Further recommendations per clinical progression All available labs, EKGs, and images were personally reviewed Patient's status, findings, and plan of care was discussed and reviewed with supervising physician Dr. Israel, who is in agreement with current plan of care. Plan of care discussed with and agreed upon by patient/Primary RN. Prognosis: Guarded Thank you for allowing me to participate in the care of this patient. Further recommendations will depend on clinical progression, hospitalist, and other consultants. Will continue to follow with Primary. If you have any questions, please do not hesitate to contact me. A total of 75 minutes was spent reviewing the patient record, examining the patient, making a diagnostic and therapeutic plan, discussing this plan with medical personnel, following up on diagnostic studies and following the patient for clinical stability excluding any and all procedures. At least 50% of this time was spent in direct, [id number] contact. Dietary Evaluation Review Comments: 1) Collect HbA1c 2) Encourage optimal PO intake 3) Follow-up with cardiology, pulmonology, and nephrology 4) Continue to monitor I&O, labs, and skin integrity Expected Outcomes/Goals: 1) appetite and labs to advance 2) f/u in 3-5 days Plan discussed with: Patient (Patient and Primary RN ) TERESA CASTILLO November 06, 2024 06:46
--- NOTE | 2024-11-06 06:48 | DVHPN2 ---
Progress Note - Dictate Date Seen: November 06, 2024 Has the PT tested + for MRSA If YES, has PT been informed?: No Medical Necessity Reason Pt with a Central, PICC or Fol: No Subjective no new symptoms vital signs Vital Sign Date Time Temp Pulse Resp B/P (MAP) Pulse Ox O2 Delivery O2 Flow Rate FiO2 11/06/24 05:00 98.4 81 18 121/59 (79) 100 98.4 11/05/24 20:00 Nasal Cannula* 2 28 Total Intake and Output 11/05/24 11/05/24 11/06/24 15:00 23:00 07:00 Intake Total 725 ml 376 ml Output Total 800 ml 100 ml Balance -75 ml 276 ml medications Current Medications Medications Dose Ordered Sig/Edson Route Start Time Stop Time Status Last Admin Dose Admin Aspirin 81 mg DAILY PO 10/28/24 10:00 11/01/24 09:14 81 MG Clopidogrel Bisulfate 75 mg DAILY PO 10/28/24 10:00 11/02/24 12:32 75 MG Atorvastatin Calcium 80 mg HS PO 10/28/24 22:00 11/05/24 23:08 80 MG Furosemide 40 mg DAILY PO 10/28/24 10:00 11/05/24 09:09 40 MG Sacubitril/ Valsartan 1 tab BID PO 10/28/24 10:00 11/05/24 23:09 1 TAB Sevelamer HCl 800 mg TIDWM PO 10/28/24 08:00 11/05/24 11:42 800 MG Diagnostic Test (Pha) 1 strip ACHS 10/28/24 07:00 11/06/24 06:28 1 STRIP Insulin Human Regular ACHS SC 10/28/24 07:00 11/06/24 06:29 3 UNITS Dextrose 50 ml UD PRN IV 10/28/24 00:45 Ondansetron HCl 4 mg Q4HP PRN IV 10/28/24 00:45 Acetaminophen 650 mg Q6HP PRN PO 10/28/24 00:45 11/05/24 06:27 650 MG Nitroglycerin 0.4 mg Q5MINP PRN SL 10/28/24 00:45 Carvedilol 12.5 mg Q12HR PO 10/29/24 22:00 11/05/24 23:09 12.5 MG Doxycycline Monohydrate 100 mg Q12HR PO 11/05/24 10:00 11/05/24 23:09 100 MG objective Alert and oriented x 3 NAD Lungs: CTA CV: RR, no pericardial rub No leg edema laboratory and microbiology Laboratory Tests 11/05/24 05:55 Test 11/05/24 05:55 Range/Units Serum Glucose 165 H 74-106 mg/dL Assessment/Plan Assessment: ESRD on HD HTN Anemia of CKD DM2 Ventricular tachycardia, s/p Dual chamber AICD on 11/04/24 Acute on chronic systolic CHF COPD Plan: Scheduled for HD today HD on MWF schedule s/p AICD placement Cardiology evaluation KRISTEN post HD as needed, goal Hb: 10-11 g/dl Cleared for discharge from Nephrology after dialysis Dietary Evaluation Review Comments: 1) Collect HbA1c 2) Encourage optimal PO intake 3) Follow-up with cardiology, pulmonology, and nephrology 4) Continue to monitor I&O, labs, and skin integrity Expected Outcomes/Goals: 1) appetite and labs to advance 2) f/u in 3-5 days Plan discussed with: Patient TRI LI MD November 06, 2024 06:48
[2024-11-06] MEDS ORDERED: SODIUM CHL 0.9% 1000 ML BAG XX ONE (07:00)
[2024-11-06 08:00] VITALS: PULSE 85; RESP 18
[2024-11-06 09:30] VITALS: BP 134/48; PULSE 68; RESP 16; TEMP 97.9; O2SAT 98
--- NOTE | 2024-11-06 12:02 | DVHPN2 ---
Reviewed: Care Plan, H&P, Labs, Medications, Previous Orders, Radiology Changes from previous H/P or p: No Changes Objective Vitals Vital Signs Date Time Temp Pulse Resp B/P (MAP) Pulse Ox O2 Delivery O2 Flow Rate FiO2 11/06/24 09:30 97.9 68 16 134/48 (76) 98 97.9 11/05/24 20:00 Nasal Cannula* 2 28 Intake/Output Intake and Output 11/06/24 07:00 Intake Total 1101 ml Output Total 900 ml Balance 201 ml Intake Oral 901 ml IV Total 200 ml Output Urine Total 900 ml # Bowel Movements 2 Medications Current Medications Medications Dose Ordered Sig/Edson Route Start Time Stop Time Status Last Admin Dose Admin Aspirin 81 mg DAILY PO 10/28/24 10:00 11/01/24 09:14 81 MG Clopidogrel Bisulfate 75 mg DAILY PO 10/28/24 10:00 11/02/24 12:32 75 MG Atorvastatin Calcium 80 mg HS PO 10/28/24 22:00 11/05/24 23:08 80 MG Furosemide 40 mg DAILY PO 10/28/24 10:00 11/05/24 09:09 40 MG Sacubitril/ Valsartan 1 tab BID PO 10/28/24 10:00 11/05/24 23:09 1 TAB Sevelamer HCl 800 mg TIDWM PO 10/28/24 08:00 11/06/24 11:55 800 MG Diagnostic Test (Pha) 1 strip ACHS 10/28/24 07:00 11/06/24 11:40 1 STRIP Insulin Human Regular ACHS SC 10/28/24 07:00 11/06/24 06:29 3 UNITS Dextrose 50 ml UD PRN IV 10/28/24 00:45 Ondansetron HCl 4 mg Q4HP PRN IV 10/28/24 00:45 Acetaminophen 650 mg Q6HP PRN PO 10/28/24 00:45 11/05/24 06:27 650 MG Nitroglycerin 0.4 mg Q5MINP PRN SL 10/28/24 00:45 Carvedilol 12.5 mg Q12HR PO 10/29/24 22:00 11/05/24 23:09 12.5 MG Doxycycline Monohydrate 100 mg Q12HR PO 11/05/24 10:00 11/06/24 11:55 100 MG Laboratory Results Laboratory Tests 11/05/24 05:55 Urinalysis Test 11/04/24 09:23 Urine Color Light-yellow (Yellow) Urine Clarity Clear (Clear) Urine pH 8.0 (5.0-9.0) Urine Specific [place] 1.012 (1.001-1.035) Urine Protein 2+ (Negative) H Urine Ketones Negative (Negative) Urine Blood Negative /uL (Negative) Urine Nitrite Negative (Negative) Urine Bilirubin Negative (Negative) Urine Urobilinogen Normal mg/dL (Negative) Urine Leukocyte Esterase 1+ /uL (Negative) Urine RBC 1 /hpf (0 - 3) Urine Microscopic WBC 17 /HPF (0-3) H Urine Squamous Epithelial Cells None seen /hpf (<5) Urine Bacteria Few /hpf (None Seen) H Urine Glucose 2+ mg/dL (Normal) H Labs and/or images reviewed: Labs reviewed by me, Image(s) reviewed by me Assessment/Plan Assessment/Plan Covering for Dr. Nazario Tachybrady syndrome: Ejection Fraction 35 percent, Dr. Guillen ordered Zolls vest, he will repeat echo in three weeks, if no improvement then planning for AICD Acute on chronic respiratory failure *Nvoua-oq-nxxzysn systolic heart failure. * End-stage renal disease, on hemodialysis- today Dr. Floyd follow up * Coronary artery disease with previous stent. * History of coronary artery bypass graft. * Chronic obstructive pulmonary disease. * Anemia, status post transfusion. * Hypertension. * Diabetes mellitus. * History of hepatitis C. * Jhk-HD-sutbgsqlv myocardial infarction, status post recent coronary angiography. Continue current management PATIENT WAS DISCHARGED ON 11/05/[address] NAZARIO AWAITING DELIVERY OF HOME OXYGEN NO NEW COMPLAINTS Plan discussed with: Patient Date of Service: November 06, 2024 Billing Provider: CHRIS SIDHU MD Common Visit Codes: [id number] INP/OBS CARE(HIGH) CHRIS SIDHU MD November 06, 2024 12:02
[2024-11-06] MEDS ORDERED: EPOETIN ALFA-EPBX 10,000 UNIT/1ML VIAL SC ONE (21:00)
== END 2024-11-06 13:57 | disposition home or self-care (01) | DRG 276 ==
LOC: EDBD 19:41 → ER 19:41 → OVERFLOW 10-28 00:45 → TELE-CENTR 10-28 18:05
PROVIDERS: ADMIT Family Medicine; ATTEND Family Medicine
PROC: 5A1D70Z Performance of Urinary Filtration, Intermittent, Less than 6 Hours Per Day (ICD-10-PCS; 2024-10-28)
PROC: 5A1D70Z Performance of Urinary Filtration, Intermittent, Less than 6 Hours Per Day (ICD-10-PCS; 2024-10-30)
PROC: 5A1D70Z Performance of Urinary Filtration, Intermittent, Less than 6 Hours Per Day (ICD-10-PCS; 2024-11-02)
PROC: B516YZZ Fluoroscopy of Right Subclavian Vein using Other Contrast (ICD-10-PCS; principal; 2024-11-04)
PROC: 0JH608Z Insertion of Defibrillator Generator into Chest Subcutaneous Tissue and Fascia, Open Approach (ICD-10-PCS; 2024-11-04)
PROC: 02HK3KZ Insertion of Defibrillator Lead into Right Ventricle, Percutaneous Approach (ICD-10-PCS; 2024-11-04)
PROC: 5A1D70Z Performance of Urinary Filtration, Intermittent, Less than 6 Hours Per Day (ICD-10-PCS; 2024-11-04)
DX: I47.20 Ventricular tachycardia, unspecified (principal); I21.A1 Myocardial infarction type 2; I50.23 Acute on chronic systolic (congestive) heart failure; J96.20 Acute and chronic respiratory failure, unspecified whether with hypoxia or hypercapnia; N18.6 End stage renal disease; I13.2 Hypertensive heart and chronic kidney disease with heart failure and with stage 5 chronic kidney disease, or end stage renal disease; I25.810 Atherosclerosis of coronary artery bypass graft(s) without angina pectoris; I49.5 Sick sinus syndrome; J44.9 Chronic obstructive pulmonary disease, unspecified; E11.22 Type 2 diabetes mellitus with diabetic chronic kidney disease; I25.10 Atherosclerotic heart disease of native coronary artery without angina pectoris; E78.5 Hyperlipidemia, unspecified; D63.1 Anemia in chronic kidney disease; I35.0 Nonrheumatic aortic (valve) stenosis; R56.9 Unspecified convulsions; N40.0 Benign prostatic hyperplasia without lower urinary tract symptoms; I49.3 Ventricular premature depolarization; I34.0 Nonrheumatic mitral (valve) insufficiency; E87.5 Hyperkalemia; I25.5 Ischemic cardiomyopathy; Z99.2 Dependence on renal dialysis; Z79.82 Long term (current) use of aspirin; Z79.899 Other long term (current) drug therapy; Z82.49 Family history of ischemic heart disease and other diseases of the circulatory system; Z80.8 Family history of malignant neoplasm of other organs or systems; Z95.5 Presence of coronary angioplasty implant and graft; Z99.81 Dependence on supplemental oxygen
CPT/HCPCS: 33249; 36012; 36415; 70450; 71045; 80048; 80053; 81001; 82962; 83735; 83880; 84484; 85025; 85610; 85730; 86850; 86900; 86901; 87081; 87340; 90935; 93005; 93306; 96374; 96375; 97110; 97116; 97162; 97530; 99152; 99291; G0378; J1642; J1815; J2250; Q9967

== ENCOUNTER 2024-12-01 01:13 | Inpatient (IN) | payer MEDICARE, MEDICAID ==
[2024-12-01] VITALS (7 sets, daily range): BP systolic 90–132; BP diastolic 47–68; PULSE 62–92; RESP 18–20; TEMP 97.6–97.9; O2SAT 97–100
[~2024-12-01] VITALS: Ht 175.3 cm; Wt 74.3 kg
[~2024-12-01 01:13] MED LIST changes: -ATOR80TA PO; -CLOP75TA28 PO; +DOXY-286 PO; +HYDR1TAB97 PO
--- NOTE | 2024-12-01 01:29 | ED.PDOC ---
SOB-HPI HPI Comments Vitals: temperature of 98.0F, pulse of 97, respiratory rate of 18, blood p ressure of 168/83, and a SpO2 of 100%RA HPI: Poor Historian. 73-year-old male accompanied by his at bedside. Patient presents emergency depart for evaluation of shortness of breath at rest for the last few days. Patient also gets intermittent chest pain. Patient was recently in the hospital admitted and discharged. Patient has been compliant with his medications. Past Medical History: Coronary artery disease, diabetes, [place], hypertension, hyperlipidemia, CHF, COPD, oxygen dependent at home. Past Surgical History: Open heart surgery, stent placement, AICD placement. Patient is on carvedilol, furosemide, aspirin Plavix, atorvastatin, diabetes injection Per previous hospital admission discharge summary report: FINAL DIAGNOSES: * Ventricular tachycardia, status post AICD placement. * Fkfnw-eb-ojnpskr systolic heart failure. * End-stage renal disease, on hemodialysis. * Chronic respiratory failure. * History of coronary artery disease with previous stent. * History of CABG. * COPD. * Anemia. * Hypertension. * Diabetes mellitus. * History of hepatitis C. REVIEW OF SYSTEMS: CONSTITUTIONAL: Denies acute: fever, diaphoresis, chills, HEAD: Denies acute: headache, photophobia Eyes: Denies acute: Double vision, vision loss, eye pain, eye discharge. EARS: Denies acute: tinnitus, hearing loss, ear discharge, ear pain, THROAT: Denies acute: sore throat, swelling, difficulty swallowing , pain with swallowing, change in voice. NECK: Denies acute: neck pain, neck swelling, stiff neck. HEART: Denies acute : , palpitations, LUNGS: Denies acute: wheezing, cough, hemoptysis ABDOMEN: Denies acute: abdominal pain, Nausea, Vomiting, diarrhea, melena , hematemesis, hematochezia SKIN: Denies acute: rash, redness, lesions, itchiness. EXTREMITIES: Denies acute: calf pain, numbness, tingling, weakness, denies pain in extremity. Denies acute: Low back pain. Neuro: Denies acute: focal neurological deficit, motor or sensory focal neurological deficit, tremors, seizure like activity, confusion, dizziness, change in mental status, loss of bowel or bladder function, cauda equina like symptoms. : Denies acute: dysuria, hematuria, flank pain, increase in urinary frequency. PSYCH: Denies acute: hallucination, suicidal ideation, homicidal ideation. PHYSICAL EXAM: General: ---mild to moderate-----acute distress, awake and alert. Head: normocephalic, atraumatic. Neck: supple, trachea is midline, no swelling. Throat: Normal phonation. Eyes:, no erythema, no purulent discharge, no proptosis, no icterus. Heart: regular rate, regular rhythm, no significant murmur appreciated. Lungs: no apparent respiratory distress, Able to speak in full sentences. No wheezing, no rhonchi, no crackles. No stridors Clear to auscultation bilaterally. Abdomen: non tender to palpation, non distended, soft, no guarding, no rebound, + bowel sounds. Neuro: Awake, Alert, oriented to name, self, situation, follows commands GCS=15. Speech is normal. Skin: no petechia, no purpura, no cyanosis, non-pale, not jaundice. Lower extremities: --trace bilateral - Pitting edema no deformity, no focal swelling, no calf TTP. Makes eye contact. moves all four extremities. Face: no apparent facial droop. ED COURSE: Time Seen by MD: 01:20 Primary Care Provider: ? Reviewed notes: Nurses Notes, Allergies Information Source: Patient, Spouse Past Medical History PAST MEDICAL HISTORY: CAD, CHF, COPD, DM, ESRD, HTN Surgical History: CABG, PTCA Family History Family History: Reviewed,noncontributory to illness Social History Smoker: Non-Smoker Alcohol: Occasionally Drugs: Denies Drug Use Lives In: Home Was a procedure done? Was a procedure done?: No Differential Dx Differential Diagnosis: Other (DDx include ACS, unstable angina, anxiety, PE, pneumothroax, neoplasm, cardiac ischemia, COPD, asthma, CHF, pleural effusion, tobacco abuse, pneumonia, hypoxia, hypercapnia, anemia., infection/sepsis., pulmonary edema. Asthma, Cardiac tamponade, infection.) X-Ray, Labs, Meds, VS Vital Signs Date Time Temp Pulse Resp B/P (MAP) Pulse Ox O2 Delivery O2 Flow Rate FiO2 12/01/24 02:15 98.8 94 14 148/82 (104) 95 98.8 12/01/24 01:29 98.0 97 18 168/83 (111) 100 98.0 Lab Test 12/01/24 02:49 12/01/24 01:34 Range/Units Troponin I High Sensitivity 124 *H 120 *H </=54 ng/L White Blood Count 5.3 4.4-10.8 10^3/uL Red Blood Count 3.06 L 4.5-5.90 10^6/uL Hemoglobin 9.8 L 13.5-17.5 g/dL Hematocrit 29.8 L 41.0-53.0 % Mean Corpuscular Volume 97.4 80.0-100.0 fL Mean Corpuscular Hemoglobin 32.2 H 28.0-32.0 pg Mean Corpuscular Hemoglobin Concent 33.0 32.0-36.0 g/dL Red Cell Distribution Width 15.2 H 11.8-14.3 % Platelet Count 182 140-450 10^3/uL Mean Platelet Volume 6.9 6.9-10.8 fL Neutrophils (%) (Auto) 66.2 37.0-80.0 % Lymphocytes (%) (Auto) 17.0 10.0-50.0 % Monocytes (%) (Auto) 14.0 H 0.0-12.0 % Eosinophils (%) (Auto) 2.2 0.0-7.0 % Basophils (%) (Auto) 0.6 0.0-2.0 % Neutrophils # (Auto) 3.5 1.6-8.6 10 ^3/uL Lymphocytes # (Auto) 0.9 0.4-5.4 10 ^3/uL Monocytes # (Auto) 0.7 0-1.3 10 ^3/uL Eosinophils # (Auto) 0.1 0-0.8 10 ^3/uL Basophils # (Auto) 0 0-0.2 10 ^3/uL Nucleated Red Blood Cells 0.1 % Sodium Level 136 136-145 mmol/L Potassium Level 4.8 3.5-5.1 mmol/L Chloride Level 94 L 98-107 mmol/L Carbon Dioxide Level 31 20-31 mmol/L Anion Gap 11 5-15 Blood Urea Nitrogen 61 H 9-23 mg/dL Creatinine 11.07 *H 0.700-1.30 mg/dL Glomerular Filtration Rate Calc 4 >90 mL/min BUN/Creatinine Ratio 5.5 L 10.0-20.0 Serum Glucose 92 74-106 mg/dL Hemoglobin A1c 5.0 <5.7 % A1C Calcium Level 11.0 H 8.7-10.4 mg/dL Magnesium Level 3.0 H 1.6-2.6 mg/dL Total Bilirubin 0.2 0.2-1.0 mg/dL Aspartate Amino Transferase (AST) 27 13-40 U/L Alanine Aminotransferase (ALT) 30 7-40 U/L Alkaline Phosphatase 123 H 46-116 U/L B-Type Natriuretic Peptide 3654.80 0-100 pg/mL Total Protein 7.2 5.7-8.2 g/dL Albumin 4.1 3.2-4.8 g/dL [place] [id number] Ph: [phone] DIAGNOSTIC IMAGING Diagnostic Imaging Report : [id number] Signed PATIENT: MAXIMUS MAR JR ACCT: [id number] UNIT: [id number] : 1950 LOC: OVERFLOW ROOM / BED: [address] [place] [address] AGE / SEX: 74 / M ADM STATUS: ADM IN SERVICE 1 ORDERING PHYSICIAN: KENNETH PARNELL DO PROCEDURE(s): CXRP - CHEST PORTABLE REASON: sob/cp ORDER NUMBER(s): [id number], ACCESSION NUMBER(s): [id number] CHEST RADIOGRAPH Indication: sob/cp Technique: Single frontal view of the chest was obtained COMPARISON: XY CHEST PORTABLE on DOS: 11/05/24, XY CHEST PORTABLE on DOS: 11/04/24, XY CHEST PORTABLE on DOS: 11/04/24, XY CHEST PORTABLE on DOS: 10/27/24, XY CHEST PORTABLE on DOS: 10/21/24 FINDINGS: Lines and Tubes: Median sternotomy. Right chest AICD. Lungs: Clear. Pleura: Moderate left pleural effusion. No pneumothorax. Cardiomediastinal contours: Unremarkable. Bones: Unremarkable. IMPRESSION: Moderate left pleural effusion. ATED BY: DEREK SHOEMAKER MD DICTATED DATE/TIME: 12/01/24539 SIGNED BY: DEREK SHOEMAKER MD SIGNED DATE/TIME: 12/01/24539 CC: Time of 1ST Reevaluation: 01:56 Reevaluation 1ST: Unchanged Time of 2ND Reevaluation: 03:14 (As of this minute, a chest x-ray has not been done.) Time of 3RD Reevaluation: 16:52 (There was a delay of patient's portable chest x-ray. Later x-ray showed pleural effusion) Patient Education/Counseling: Diagnosis, Treatment, Other (need for admission ) Family Education/Counseling: Diagnosis, Treatment Comments Patient presented with the above HPI.---dyspnea and chest pain---workup was initiated. patient was found with the above mentioned diagnosis. the following medications were ordered: please refer to order lists of meds and tests obtained by myself Dr. Parnell. Patient ED course and VS have been stabilized. Patient has been reassessed in the ED and remained in a stable condition. Pertinent incidental findings were discussed with the patient and/or family. Patient/family voices understanding and is agreeable with plan. Patient has been observed in the ED adequate length of time to insure improvement/stability. Escalation of care considered: Consideration of escalation to observation or admission Patient is already on anticoagulation at home. Patient has elevated troponin in the setting of end-stage renal disease. Patient was ADMITTED to the medicine team for further evaluation and treatment of their presentation. All the reports of any imaging studies that were ordered by myself were reviewed by myself. Departure 1 Departure Time of Disposition: 01:28 Impression: Primary Impression: Dyspnea Additional Impressions: End-stage renal disease on hemodialysis Elevated troponin Elevated brain natriuretic peptide (BNP) level Pleural effusion Disposition: ADMITTED INPATIENT Admit to: [facility] Condition: Guarded Discharged With: Self Critical Care Note Critical Care Time?: Yes (55 min-critical care time only) Heart Score Heart Score: Heart Score Response (Comments) Value History Moderate Suspicious 1 EKG Normal 0 Age >65 2 Risk Factors >3 or Hx ASHD 2 Troponin 1-2 x's Normal limit 1 Total 6 I personally scribed for KENNETH PARNELL DO ([email or web address]) on 12/01/24 at 02:11. Electronically submitted by Gabino Uriostegui ([email or web address]). I personally scribed for KENNETH PARNELL DO ([email or web address]) on 12/01/24 at 05:55. Electronically submitted by Gabino Uriostegui ([email or web address]). KENNETH PARNELL DO December 01, 2024 01:29
[2024-12-01 01:46] LABS: Basophils # (auto) 0 10 ^3/uL (0-0.2); Basophils % (auto) 0.6 % (0.0-2.0); Eosinophils # (auto) 0.1 10 ^3/uL (0-0.8); Eosinophils % (auto) 2.2 % (0.0-7.0); Hematocrit 29.8 % (41.0-53.0); Hemoglobin 9.8 g/dL (13.5-17.5); Lymphocytes # (auto) 0.9 10 ^3/uL (0.4-5.4); Mean Corpuscular Hemoglobin 32.2 pg (28.0-32.0); Mean Corpuscular Volume 97.4 fL (80.0-100.0); Monocytes # (auto) 0.7 10 ^3/uL (0-1.3); Neutrophils # (auto) 3.5 10 ^3/uL (1.6-8.6); Neutrophils % (auto) 66.2 % (37.0-80.0); Nucleated Red Blood Cells % 0.1 %; Platelet Count (auto) 182 10^3/uL (140-450); Red Blood Cells 3.06 10^6/uL (4.5-5.90); Red Cell Distribution Width 15.2 % (11.8-14.3); White Blood Cell 5.3 10^3/uL (4.4-10.8)
[2024-12-01] MEDS: FUROSEMIDE 20 MG/2 ML VIAL IV ONE (02:00)
[2024-12-01 02:05] LABS: Alanine Aminotransferase 30 U/L (7-40); Albumin 4.1 g/dL (3.2-4.8); Anion Gap 11 (5-15); Aspartate Aminotransferase 27 U/L (13-40); BUN/Creatinine Ratio 5.5 (10.0-20.0); Carbon Dioxide 31 mmol/L (20-31); Glucose 92 mg/dL (74-106); Potassium 4.8 mmol/L (3.5-5.1); Total Protein 7.2 g/dL (5.7-8.2)
[2024-12-01 02:21] LABS: Alkaline Phosphatase 123 U/L (46-116); Blood Urea Nitrogen 61 mg/dL (9-23); Chloride 94 mmol/L (98-107); Sodium 136 mmol/L (136-145)
[2024-12-01 02:22] LABS: Bilirubin, Total 0.2 mg/dL (0.2-1.0)
[2024-12-01] MEDS: FUROSEMIDE 40 MG/4 ML VIAL IV ONE (03:15)
--- NOTE | 2024-12-01 03:26 | DVHHP2 ---
History of Present Illness History of Present Illness 73-year-old male with significant cardiac history including prior CABG and stent placements, presents accompanied by for evaluation of shortness of breath at rest for the past few days. Orthopnea and PND. No leg edema. He reports intermittent chest pain that has not changed in character and is not present at the time of evaluation. Patient was recently hospitalized and discharged. He reports compliance with medications and dialysis. Denies recent increase in oxygen requirements. No shocks since recent AICD placement. No history suggestive of ACS at this time. Past Medical History: Coronary artery disease, [place] Systolic heart failure COPD, oxygen-dependent at home ESRD on hemodialysis Hypertension Hyperlipidemia Diabetes mellitus Anemia Hepatitis C Surgical History: CABG PTCA AICD placement Social History: Non-smoker Occasional alcohol Denies illicit drug use Lives at home Review of Systems Review of Systems Constitutional: Denies fever, chills, diaphoresis HEENT: Denies headache, vision/hearing changes, sore throat Cardiac: Denies palpitations Respiratory: Positive for shortness of breath; chest pain intermittent GI//Neuro/Musculoskeletal: Non-contributory from current documentation Allergies: Coded Allergies: NO KNOWN ALLERGIES (Unverified , 01/05/24) Medications Current Medications Medications Dose Ordered Sig/Edson Route Start Time Stop Time Status Last Admin Dose Admin Furosemide 40 mg DAILY IV 12/01/24 10:00 Clopidogrel Bisulfate 75 mg DAILY PO 12/01/24 10:00 Aspirin 81 mg DAILY PO 12/01/24 10:00 Sacubitril/ Valsartan 1 tab BID PO 12/01/24 10:00 Carvedilol 12.5 mg Q12HR PO 12/01/24 10:00 Ranolazine 500 mg BID PO 12/01/24 10:00 Exam Vital Signs Vital Signs Date Time Temp Pulse Resp B/P (MAP) Pulse Ox O2 Delivery O2 Flow Rate FiO2 12/01/24 02:15 98.8 94 14 148/82 (104) 95 98.8 Exam Alert, cooperative Moves all extremities No facial droop Lungs: Decreased breath sounds, some crackles in the right side CV: Regular rate and rhythm, no murmur No lower extremity edema Labs/Xrays Labs Test 12/01/24 02:49 12/01/24 01:34 Range/Units White Blood Count 5.3 4.4-10.8 10^3/uL Red Blood Count 3.06 L 4.5-5.90 10^6/uL Hemoglobin 9.8 L 13.5-17.5 g/dL Hematocrit 29.8 L 41.0-53.0 % Mean Corpuscular Volume 97.4 80.0-100.0 fL Mean Corpuscular Hemoglobin 32.2 H 28.0-32.0 pg Mean Corpuscular Hemoglobin Concent 33.0 32.0-36.0 g/dL Red Cell Distribution Width 15.2 H 11.8-14.3 % Platelet Count 182 140-450 10^3/uL Mean Platelet Volume 6.9 6.9-10.8 fL Neutrophils (%) (Auto) 66.2 37.0-80.0 % Lymphocytes (%) (Auto) 17.0 10.0-50.0 % Monocytes (%) (Auto) 14.0 H 0.0-12.0 % Eosinophils (%) (Auto) 2.2 0.0-7.0 % Basophils (%) (Auto) 0.6 0.0-2.0 % Neutrophils # (Auto) 3.5 1.6-8.6 10 ^3/uL Lymphocytes # (Auto) 0.9 0.4-5.4 10 ^3/uL Monocytes # (Auto) 0.7 0-1.3 10 ^3/uL Eosinophils # (Auto) 0.1 0-0.8 10 ^3/uL Basophils # (Auto) 0 0-0.2 10 ^3/uL Nucleated Red Blood Cells 0.1 % Sodium Level 136 136-145 mmol/L Potassium Level 4.8 3.5-5.1 mmol/L Chloride Level 94 L 98-107 mmol/L Carbon Dioxide Level 31 20-31 mmol/L Anion Gap 11 5-15 Blood Urea Nitrogen 61 H 9-23 mg/dL Creatinine 11.07 *H 0.700-1.30 mg/dL Glomerular Filtration Rate Calc 4 >90 mL/min BUN/Creatinine Ratio 5.5 L 10.0-20.0 Serum Glucose 92 74-106 mg/dL Calcium Level 11.0 H 8.7-10.4 mg/dL Magnesium Level 3.0 H 1.6-2.6 mg/dL Total Bilirubin 0.2 0.2-1.0 mg/dL Aspartate Amino Transferase (AST) 27 13-40 U/L Alanine Aminotransferase (ALT) 30 7-40 U/L Alkaline Phosphatase 123 H 46-116 U/L B-Type Natriuretic Peptide 3654.80 0-100 pg/mL Total Protein 7.2 5.7-8.2 g/dL Albumin 4.1 3.2-4.8 g/dL Assessment/Plan Assessment/Plan #[id number] systolic heart failure. #Pleural effusion: left #H/o Ventricular tachycardia, status post AICD placement. #End-stage renal disease, on hemodialysis. #Chronic respiratory failure. #History of coronary artery disease with previous stent. #History of CABG. #COPD. #Anemia. #Hypertension. #Diabetes mellitus?. #History of hepatitis C. #NSTEMI type 2 Admit [facility] Nephrology consult due to dialysis need Furosemide 40 mg IV Aspirin Carvedilol Clopidogrel Ranolazine Entresto BID Chest US ICD interrogation Patient had recently placed ICD without shocks since placement, no increase in O2 requirements, patient had 2 caths this year, no ACS is suspected. His chest pain didnt change in nature, is intermittent and he said that he is not having it at the moment, chest x ray showed moderate left pleural effusion Case discussed with Dr Ji Full code Plan discussed with: Patient, Other My Orders Orders - BEULAH COTA RESIDENT Procedure Category Date Status Time Admit ADMIT 12/01/24 Transmitted 02:58 Code Status CODE 12/01/24 Transmitted 02:58 Vital Signs [facility] 12/01/24 In Process 02:58 Review Orders With [facility] 12/01/24 In Process Adm. 02:58 Consistent DIET 12/01/24 Transmitted Carb(Ccho)Diabetes Breakfast Notify Of Changes [facility] 12/01/24 In Process From Base 02:58 Advance Directive [facility] 12/01/24 In Process 02:58 Patient Condition ORDERS 12/01/24 Transmitted 02:58 Allergies [facility] 12/01/24 In Process 02:58 Furosemide Injection PHA 12/01/24 In Process (Lasix Injection) 10:00 Clopidogrel Bisulfate PHA 12/01/24 In Process (Plavix) 10:00 Aspirin Tablet PHA 12/01/24 In Process 10:00 *Dr. Mariel Menendez -Da CONS 12/01/24 Transmitted Eleni 03:07 Sacubitril-Valsartan PHA 12/01/24 In Process (Entresto 24-26 Mg 10:00 Communication Order ORDERS 12/01/24 Transmitted 03:10 Hemoglobin A1c LAB 12/01/24 In Process 03:11 Urinalysis LAB 12/01/24 Logged 03:14 Carvedilol Tablet PHA 12/01/24 In Process (Coreg Tablet) 10:00 Ranolazine (Ranexa Er) PHA 12/01/24 In Process 10:00 Complete Blood Count LAB 12/01/24 Logged 06:00 Comprehensive LAB 12/01/24 Logged Metabolic Panel 06:00 Thyroid Stimulating LAB 12/01/24 Logged Hormone 06:00 Date of Service: December 01, 2024 Billing Provider: AYDE JI MD Common Visit Codes: [id number] INP/OBS CARE (HIGH) Secondary Visit Codes: [id number] CARE PLAN 30 MINUTES BEULAH COTA RESIDENT December 01, 2024 03:26
--- NOTE | 2024-12-01 05:42 | DVH ---
CHEST RADIOGRAPH Indication: sob/cp Technique: Single frontal view of the chest was obtained COMPARISON: XY CHEST PORTABLE on DOS: 11/05/24, XY CHEST PORTABLE on DOS: 11/04/24, XY CHEST PORTABLE on DOS: 11/04/24, XY CHEST PORTABLE on DOS: 10/27/24, XY CHEST PORTABLE on DOS: 10/21/24 FINDINGS: Lines and Tubes: Median sternotomy. Right chest AICD. Lungs: Clear. Pleura: Moderate left pleural effusion. No pneumothorax. Cardiomediastinal contours: Unremarkable. Bones: Unremarkable. IMPRESSION: Moderate left pleural effusion.
[2024-12-01 06:49] LABS: Albumin 4.2 g/dL (3.2-4.8); Anion Gap 15 (5-15); Aspartate Aminotransferase 30 U/L (13-40); BUN/Creatinine Ratio 4.5 (10.0-20.0); Carbon Dioxide 27 mmol/L (20-31); Glucose 85 mg/dL (74-106); Potassium 4.4 mmol/L (3.5-5.1); Total Protein 7.7 g/dL (5.7-8.2)
[2024-12-01 06:54] LABS: Alkaline Phosphatase 118 U/L (46-116); Bilirubin, Total 0.2 mg/dL (0.2-1.0); Blood Urea Nitrogen 50 mg/dL (9-23); Calcium 11.7 mg/dL (8.7-10.4); Chloride 93 mmol/L (98-107); Sodium 135 mmol/L (136-145)
[2024-12-01 06:58] LABS: Alanine Aminotransferase 29 U/L (7-40)
--- NOTE | 2024-12-01 08:20 | DVH ---
Left Chest Sonogram Clinical history: left pleural efussion Technique: Limited sonographic evaluation of the left chest was performed. Findings/Impression: There is a moderate pleural effusion.
--- NOTE | 2024-12-01 08:36 | DVHINCON2 ---
Date of service: December 01, [address] Ji Reason for Consultation End-stage kidney disease History of Present Illness This is a 74-year-old male with history of end-stage kidney disease on hemodialysis, coronary artery disease history of CABG and stent placements, status post AICD placement, COPD, hypertension, diabetes, hyperlipidemia, hepatitis-C presenting to the emergency room because of shortness of breath. Patient had recent hospitalization here. He says he has been very compliant with his dialysis treatments and his fluid intake and diet. Initial evaluation in the emergency room showed evidence of moderate left pleural effusion. Admitted for further evaluation and workup. Nephrology consulted for dialysis. His last dialysis was on Saturday. Past Medical History Past Medical History: Coronary artery disease Systolic heart failure COPD, oxygen-dependent at home ESRD on hemodialysis Hypertension Hyperlipidemia Diabetes mellitus Anemia Hepatitis C Past Surgical History Surgical History: CABG PTCA AICD placement Dialysis access Family History: FH: cancer G8 MOTHER FH: heart disease G8 FATHER Social History Non-smoker Occasional alcohol Denies illicit drug use Lives at home Allergies: Coded Allergies: NO KNOWN ALLERGIES (Unverified , 01/05/24) Home Meds Active Scripts Doxycycline Hyclate (DOXYCYCLINE HYCLATE) 100 Mg Tab, 1 TAB PO BID for 7 Days, #14 TAB Prov:CRAIG NAZARIO MD 11/05/24 Hydrocodone-Acetaminophen (Hydrocodone/Acetaminophen 5-325 mg) 1 Tab Tab, 1 TAB PO TIDP PRN for 6 Days, #18 TAB Prov:CRAIG NAZARIO MD 11/05/24 Reported Medications Magnesium Oxide (Magnesium Oxide) 400 Mg Tab, 1 TAB PO DAILY for 90 Days, #90 10/29/24 Meloxicam (Meloxicam) 15 Mg Tab, 1 TAB PO DAILY for 30 Days, #30 10/29/24 Sacubitril-Valsartan (Entresto 24-26 mg) 1 Tab Tab, 1 TAB PO BID for 30 Days, #60 10/29/24 Nifedipine (Nifedipine Er) 90 Mg Tab, 1 TAB PO DAILY for 30 Days, #30 10/29/24 Nitroglycerin (Nitrostat) 0.4 Mg Sub, 1 TAB PO UD for 33 Days, #100 10/29/24 Atorvastatin Calcium (ATORVASTATIN CALCIUM) 40 Mg Tab, 1 TAB PO DAILY for 90 Days, #90 10/29/24 Isosorbide Mononitrate (Isosorbide Mononitrate Er) 30 Mg Tab, 1 TAB PO DAILY for 90 Days, #90 10/29/24 Clopidogrel Bisulfate (CLOPIDOGREL) 75 Mg Tab, 1 TAB PO DAILY for 90 Days, #90 10/29/24 Ranolazine (Ranolazine ER) 500 Mg Tab, 1 TAB PO BID for 30 Days, #60 10/29/24 Furosemide (Furosemide) 40 Mg Tab, 1 TAB PO DAILY for 90 Days, #90 01/07/24 Ergocalciferol (Vitamin D) 50,000 Unit Cap, 1 CAP PO QWEEKLY 01/07/24 Omeprazole (Omeprazole Dr) 40 Mg Cap, 1 CAP PO DAILY for 90 Days, #90 01/07/24 Aspirin (Aspirin Low Dose) 81 Mg Chw, 1 TAB PO DAILY 01/07/24 Sevelamer Carbonate (Renvela) 800 Mg Tab, 2 TAB PO TID 01/07/24 Carvedilol (Carvedilol) 25 Mg Tab, 1 TAB PO BID for 90 Days, #180 01/07/24 Oxycodone HCl (Oxycodone Hydrochloride) 15 Mg Tab, 1 TAB PO QID for 30 Days, #120 01/07/24 Current Medications Current Medications Medications (Trade) Dose Ordered Sig/Edson Route PRN Reason Start Time Stop Time Status Last Admin Furosemide (Lasix Injection) 40 mg DAILY IV 12/01/24 10:00 Clopidogrel Bisulfate (Plavix) 75 mg DAILY PO 12/01/24 10:00 Aspirin 81 mg DAILY PO 12/01/24 10:00 Sacubitril/ Valsartan (Entresto 24-26 Mg tab) 1 tab BID PO 12/01/24 10:00 Carvedilol (Coreg Tablet) 12.5 mg Q12HR PO 12/01/24 10:00 Ranolazine (Ranexa ER) 500 mg BID PO 12/01/24 10:00 Review of Systems Twelve point review of system negative except as stated in the HPI Vital Signs Vital Signs Date Time Temp Pulse Resp B/P (MAP) Pulse Ox O2 Delivery O2 Flow Rate FiO2 12/01/24 05:00 97.8 91 20 132/68 (89) 99 97.8 12/01/24 04:42 Nasal Cannula* 2 28 Physical Exam Alert, cooperative HEENT: Normocephalic Lungs: Decreased breath sounds, some crackles in the right side CV: Regular rate and rhythm, no murmur Abdomen: Soft, bowel sounds present No lower extremity edema Labs/Diagnostic Data Labs Test 12/01/24 04:36 12/01/24 01:34 Range/Units Sodium Level 135 L 136-145 mmol/L Potassium Level 4.4 3.5-5.1 mmol/L Chloride Level 93 L 98-107 mmol/L Carbon Dioxide Level 27 20-31 mmol/L Anion Gap 15 5-15 Blood Urea Nitrogen 50 #H 9-23 mg/dL Creatinine 11.07 *H 0.700-1.30 mg/dL Glomerular Filtration Rate Calc 4 >90 mL/min BUN/Creatinine Ratio 4.5 L 10.0-20.0 Serum Glucose 85 74-106 mg/dL Calcium Level 11.7 H 8.7-10.4 mg/dL Total Bilirubin 0.2 0.2-1.0 mg/dL Aspartate Amino Transferase (AST) 30 13-40 U/L Alanine Aminotransferase (ALT) 29 7-40 U/L Alkaline Phosphatase 118 H 46-116 U/L Troponin I High Sensitivity 127 *H </=54 ng/L Total Protein 7.7 5.7-8.2 g/dL Albumin 4.2 3.2-4.8 g/dL Thyroid Stimulating Hormone (TSH) 0.74 0.55-4.78 uIU/mL White Blood Count 5.3 4.4-10.8 10^3/uL Red Blood Count 3.06 L 4.5-5.90 10^6/uL Hemoglobin 9.8 L 13.5-17.5 g/dL Hematocrit 29.8 L 41.0-53.0 % Mean Corpuscular Volume 97.4 80.0-100.0 fL Mean Corpuscular Hemoglobin 32.2 H 28.0-32.0 pg Mean Corpuscular Hemoglobin Concent 33.0 32.0-36.0 g/dL Red Cell Distribution Width 15.2 H 11.8-14.3 % Platelet Count 182 140-450 10^3/uL Mean Platelet Volume 6.9 6.9-10.8 fL Neutrophils (%) (Auto) 66.2 37.0-80.0 % Lymphocytes (%) (Auto) 17.0 10.0-50.0 % Monocytes (%) (Auto) 14.0 H 0.0-12.0 % Eosinophils (%) (Auto) 2.2 0.0-7.0 % Basophils (%) (Auto) 0.6 0.0-2.0 % Neutrophils # (Auto) 3.5 1.6-8.6 10 ^3/uL Lymphocytes # (Auto) 0.9 0.4-5.4 10 ^3/uL Monocytes # (Auto) 0.7 0-1.3 10 ^3/uL Eosinophils # (Auto) 0.1 0-0.8 10 ^3/uL Basophils # (Auto) 0 0-0.2 10 ^3/uL Nucleated Red Blood Cells 0.1 % Hemoglobin A1c 5.0 <5.7 % A1C Magnesium Level 3.0 H 1.6-2.6 mg/dL B-Type Natriuretic Peptide 3654.80 0-100 pg/mL Assessment End-stage kidney disease on hemodialysis Acute on chronic hypoxic respiratory failure Moderate left pleural effusion Systolic heart failure Coronary artery disease status post CABG and stent placement Status post AICD placement Hypertension Hyperlipidemia Type 2 diabetes Hepatitis-C Hypercalcemia Plan/Recommendation Hemodialysis today Epogen with dialysis Thoracentesis Cardiology evaluation Plan discussed with: Patient SHAREE KHANNA MD December 01, 2024 08:36
[2024-12-01 08:54] LABS: Basophils # (auto) 0 10 ^3/uL (0-0.2); Basophils % (auto) 0.6 % (0.0-2.0); Eosinophils # (auto) 0.1 10 ^3/uL (0-0.8); Hematocrit 30.1 % (41.0-53.0); Hemoglobin 10.2 g/dL (13.5-17.5); Lymphocytes % (auto) 18.9 % (10.0-50.0); Mean Corpuscular Hemoglobin 32.9 pg (28.0-32.0); Mean Corpuscular Hgb Conc. 33.7 g/dL (32.0-36.0); Mean Corpuscular Volume 97.5 fL (80.0-100.0); Monocytes # (auto) 0.8 10 ^3/uL (0-1.3); Monocytes % (auto) 15.3 % (0.0-12.0); Neutrophils # (auto) 3.3 10 ^3/uL (1.6-8.6); Neutrophils % (auto) 63.2 % (37.0-80.0); Platelet Count (auto) 166 10^3/uL (140-450); Red Blood Cells 3.09 10^6/uL (4.5-5.90); Red Cell Distribution Width 14.5 % (11.8-14.3); White Blood Cell 5.3 10^3/uL (4.4-10.8)
[2024-12-01] MEDS ORDERED: SODIUM CHL 0.9% 1000 ML BAG XX ONE (09:00)
[2024-12-01 09:10] LABS: INR 1.06 (0.9-1.15); Partial Thromboplastin Time 25.6 SEC (24.5-34.5); Prothrombin Time 11.2 sec (9.3-11.8)
[2024-12-01] MEDS: CLOPIDOGREL BISULFATE 75 MG TAB PO SCH (09:25)
[2024-12-01] MEDS: SACUBITRIL-VALSARTAN 24mg/26mg TAB PO SCH (09:25)
[2024-12-01] MEDS: CARVEDILOL 12.5 MG TAB PO SCH (09:27)
[2024-12-01] MEDS: ASPirin 81 mg TAB PO SCH (09:27)
[2024-12-01] MEDS: RANOLAZINE ER 500 MG TAB PO SCH (09:29)
--- NOTE | 2024-12-01 09:54 | DVHINCON2 ---
Date Seen: December 01, 2024 Referring Physician MD Jalil Reason for Consultation CHF exacerbation History of Present Illness This is a pleasant 74-year-old man who presented to the emergency room with a chief complaint of shortness of breath for four days. Complains of SOB associated with orthopnea, PND, and PIMENTEL. He also complains of chest pain described as right-sided, constant, worse with movement, and when onset after AICD generator implantation on 11/04/2024. The pain was reproducible upon palpation. There was no twelve lead electrocardiogram within chart. Troponin levels have remained flat in the 120s ng/L. The patient sees automation qa lead in the outpatient setting with upcoming appointment on 12/04/2024. Significant medical history includes severe coronary artery disease status post triple-vessel CABG on ASA therapy (01/2024) status post successful PTCA and stenting with shockwave lithotripsy of the LAD x 1 MENDEZ on 09/01/2024 (on ASA/Plavix), ischemic cardiomyopathy with EF 35-40%, sick sinus syndrome status post right-sided single-lead AICD ([employer], 11/04/2024), hypertension, dyslipidemia, COPD O2 dependence, end-stage renal disease on hemodialysis T --Sat, , type 2 diabetes mellitus, previous tobacco use, and benign prostatic hyperplasia. Past Medical History Past medical history reviewed. No other significant than mentioned above. Past Surgical History PTCA and stenting with shockwave lithotripsy of the LAD x 1 MENDEZ, 09/01/2024 Triple-vessel CABG (01/2024) at [facility] Hemodialysis access TURP Family History: FH: cancer G8 MOTHER FH: heart disease G8 FATHER Family History Family history reviewed. Social History Denies the use of illicit drugs, alcohol, or tobacco use. Allergies: Coded Allergies: NO KNOWN ALLERGIES (Unverified , 01/05/24) Home Meds Active Scripts Doxycycline Hyclate (DOXYCYCLINE HYCLATE) 100 Mg Tab, 1 TAB PO BID for 7 Days, #14 TAB Prov:CRAIG NAZARIO MD 11/05/24 Hydrocodone-Acetaminophen (Hydrocodone/Acetaminophen 5-325 mg) 1 Tab Tab, 1 TAB PO TIDP PRN for 6 Days, #18 TAB Prov:CRAIG NAZARIO MD 11/05/24 Reported Medications Magnesium Oxide (Magnesium Oxide) 400 Mg Tab, 1 TAB PO DAILY for 90 Days, #90 10/29/24 Meloxicam (Meloxicam) 15 Mg Tab, 1 TAB PO DAILY for 30 Days, #30 10/29/24 Sacubitril-Valsartan (Entresto 24-26 mg) 1 Tab Tab, 1 TAB PO BID for 30 Days, #60 10/29/24 Nifedipine (Nifedipine Er) 90 Mg Tab, 1 TAB PO DAILY for 30 Days, #30 10/29/24 Nitroglycerin (Nitrostat) 0.4 Mg Sub, 1 TAB PO UD for 33 Days, #100 10/29/24 Atorvastatin Calcium (ATORVASTATIN CALCIUM) 40 Mg Tab, 1 TAB PO DAILY for 90 Days, #90 10/29/24 Isosorbide Mononitrate (Isosorbide Mononitrate Er) 30 Mg Tab, 1 TAB PO DAILY for 90 Days, #90 10/29/24 Clopidogrel Bisulfate (CLOPIDOGREL) 75 Mg Tab, 1 TAB PO DAILY for 90 Days, #90 10/29/24 Ranolazine (Ranolazine ER) 500 Mg Tab, 1 TAB PO BID for 30 Days, #60 10/29/24 Furosemide (Furosemide) 40 Mg Tab, 1 TAB PO DAILY for 90 Days, #90 01/07/24 Ergocalciferol (Vitamin D) 50,000 Unit Cap, 1 CAP PO QWEEKLY 01/07/24 Omeprazole (Omeprazole Dr) 40 Mg Cap, 1 CAP PO DAILY for 90 Days, #90 01/07/24 Aspirin (Aspirin Low Dose) 81 Mg Chw, 1 TAB PO DAILY 01/07/24 Sevelamer Carbonate (Renvela) 800 Mg Tab, 2 TAB PO TID 01/07/24 Carvedilol (Carvedilol) 25 Mg Tab, 1 TAB PO BID for 90 Days, #180 01/07/24 Oxycodone HCl (Oxycodone Hydrochloride) 15 Mg Tab, 1 TAB PO QID for 30 Days, #120 01/07/24 Home Meds Home medications reviewed. Current Medications Current Medications Medications (Trade) Dose Ordered Sig/Edson Route PRN Reason Start Time Stop Time Status Last Admin Furosemide (Lasix Injection) 40 mg DAILY IV 12/01/24 10:00 Clopidogrel Bisulfate (Plavix) 75 mg DAILY PO 12/01/24 10:00 Aspirin 81 mg DAILY PO 12/01/24 10:00 Sacubitril/ Valsartan (Entresto 24-26 Mg tab) 1 tab BID PO 12/01/24 10:00 Carvedilol (Coreg Tablet) 12.5 mg Q12HR PO 12/01/24 10:00 Ranolazine (Ranexa ER) 500 mg BID PO 12/01/24 10:00 Review of Systems Constitutional: No symptom reported Ears, Nose, & Throat: No symptom reported Eyes: No symptom reported Neurological: No symptoms reported Pulmonary/Respiratory: SOB, PIMENTEL, PND, orthopnea Cardiovascular: No symptom reported Gastrointestinal: No symptom reported Genitourinary: No symptom reported Musculoskeletal: Chest wall pain Skin: No symptom reported Psychiatric: No symptom reported Endocrine: No symptom reported Hemotologic/Lymphatic: No symptom reported Vital Signs Vital Signs Date Time Temp Pulse Resp B/P (MAP) Pulse Ox O2 Delivery O2 Flow Rate FiO2 12/01/24 08:33 97.9 92 18 126/66 (86) 100 97.9 12/01/24 04:42 Nasal Cannula* 2 28 Physical Exam General Appearance: Cooperative. Well developed. Well nourished. In no acute distress Head Exam: Normal inspection Neck Exam: Normal inspection. Non-tender. Normal alignment Pulmonary/Respiratory: Chest tender to palpation, Right sided. Diminished L>R bilateral breath sounds Cardiovascular/Chest: Regular rate and rhythm. S1, S2. No murmurs. No JVD. Peripheral Pulses: 2+ Radial (R). 2+ Radial (L). 2+ Pedal (R). 2+ Pedal (L) Abdominal Exam: Normal bowel sounds. Soft. Nontender. No hepatospenomegaly. No masses Ankle Exam: Negative ankle edema Lower extremities: Negative lower extremity edema Neuro/Mental Status: A&O x4. Coherent Thoughts/Psych: Normal thought pattern. Appropriate mood and affect. Good judgement and insight Appearance: In no acute distress Skin Exam: Normal inspection. Normal color. Warm. Dry Labs/Diagnostic Data Labs Test 12/01/24 08:30 12/01/24 04:36 12/01/24 01:34 Range/Units White Blood Count 5.3 4.4-10.8 10^3/uL Red Blood Count 3.09 L 4.5-5.90 10^6/uL Hemoglobin 10.2 L 13.5-17.5 g/dL Hematocrit 30.1 L 41.0-53.0 % Mean Corpuscular Volume 97.5 80.0-100.0 fL Mean Corpuscular Hemoglobin 32.9 H 28.0-32.0 pg Mean Corpuscular Hemoglobin Concent 33.7 32.0-36.0 g/dL Red Cell Distribution Width 14.5 H 11.8-14.3 % Platelet Count 166 140-450 10^3/uL Mean Platelet Volume 7.2 6.9-10.8 fL Neutrophils (%) (Auto) 63.2 37.0-80.0 % Lymphocytes (%) (Auto) 18.9 10.0-50.0 % Monocytes (%) (Auto) 15.3 H 0.0-12.0 % Eosinophils (%) (Auto) 2.0 0.0-7.0 % Basophils (%) (Auto) 0.6 0.0-2.0 % Neutrophils # (Auto) 3.3 1.6-8.6 10 ^3/uL Lymphocytes # (Auto) 1.0 0.4-5.4 10 ^3/uL Monocytes # (Auto) 0.8 0-1.3 10 ^3/uL Eosinophils # (Auto) 0.1 0-0.8 10 ^3/uL Basophils # (Auto) 0 0-0.2 10 ^3/uL Nucleated Red Blood Cells 0.0 % Prothrombin Time 11.2 9.3-11.8 sec Prothrombin Time INR 1.06 0.9-1.15 Activated Partial Thromboplast Time 25.6 24.5-34.5 SEC Sodium Level 135 L 136-145 mmol/L Potassium Level 4.4 3.5-5.1 mmol/L Chloride Level 93 L 98-107 mmol/L Carbon Dioxide Level 27 20-31 mmol/L Anion Gap 15 5-15 Blood Urea Nitrogen 50 #H 9-23 mg/dL Creatinine 11.07 *H 0.700-1.30 mg/dL Glomerular Filtration Rate Calc 4 >90 mL/min BUN/Creatinine Ratio 4.5 L 10.0-20.0 Serum Glucose 85 74-106 mg/dL Calcium Level 11.7 H 8.7-10.4 mg/dL Total Bilirubin 0.2 0.2-1.0 mg/dL Aspartate Amino Transferase (AST) 30 13-40 U/L Alanine Aminotransferase (ALT) 29 7-40 U/L Alkaline Phosphatase 118 H 46-116 U/L Troponin I High Sensitivity 127 *H </=54 ng/L Total Protein 7.7 5.7-8.2 g/dL Albumin 4.2 3.2-4.8 g/dL Thyroid Stimulating Hormone (TSH) 0.74 0.55-4.78 uIU/mL Hemoglobin A1c 5.0 <5.7 % A1C Magnesium Level 3.0 H 1.6-2.6 mg/dL B-Type Natriuretic Peptide 3654.80 0-100 pg/mL Assessment Acute on chronic decompensated HFrEF, NYHA class III NSTEMI, type II secondary to above Non-cardiac chest pain, musculoskeletal 2/2 to recent ICD implantation Severe coronary artery disease with triple-vessel CABG s/p PCI of the LAD x 1DES (on ASA and Plavix) Presence of single-lead AICD ([employer], 11/04/2024), right-sided Hypertensive urgency Dyslipidemia COPD with oxygen dependence End-stage renal disease on hemodialysis Type 2 diabetes mellitus History of tobacco use Plan/Recommendation (Dr. Maya) * Transthoracic echocardiogram revealed EF 35-40% with global hypokinesis (10/30/24) * Continue guideline directed medical therapy for CHF as renal function permits * Mineralcorticoid and SGLP2 inhibitor contraindicated, ESRD * Dual-antiplatelet therapy and lipid-lowering agent * Obtain a baseline twelve lead electrocardiogram * Nephrology recommendations for HD * Radiology recommendations for thoracentesis * Follow-up with Dr. Cardona as scheduled on 12/04/24 at 0930 There is no further cardiac work-up indicated at this time. Kindly call with any questions or concerns. Thank you for allowing us to care for this patient. This medical document was created using an electronic medical record system with voice recognition software and computerized dictation system. Although this document has been carefully reviewed, there might still be some phonetic and typographical errors. Occasional wrong-word or ``sound-alike substitutions may have occurred due to the inherent limitations of voice recognition software. These areas are purely typographical due to imperfections of the software programs and do not reflect any compromise in the patient's medical care. Please read the chart carefully and recognize, using context, where these substitutions have occurred. Plan discussed with: Patient, Other NYHA Physical activity limitations: Class3(Marked) ordinary (activity causes symtoms) Date of Service: December 01, 2024 Billing Provider: MARYANNE ADAMS Cardiology Common Codes: [id number] INP/OBS CARE (High) MARYANNE ADAMS December 01, 2024 09:54
[2024-12-01] MEDS: FUROSEMIDE 40 MG/4 ML VIAL IV SCH (10:00)
[2024-12-01] MEDS ORDERED: hydrALAZINE HCL 20 MG/ML VL IV PRN (10:00)
--- NOTE | 2024-12-01 11:34 | DVH ---
INDICATION: POST THORACENTESIS TECHNIQUE: Frontal view of the chest. COMPARISON: XY CHEST PORTABLE on DOS: 12/01/24, XY CHEST PORTABLE on DOS: 11/05/24, XY CHEST PORTABLE on DOS: 11/04/24, XY CHEST PORTABLE on DOS: 11/04/24, XY CHEST PORTABLE on DOS: 10/27/24 FINDINGS: Small left pleural effusion, left basilar opacity. The heart and mediastinal contours are grossly unr emarkable. . . The bony structures of the chest are intact without fracture. IMPRESSION: 1. Small left pleural effusion, left basilar opacity. No Pneumothorax
--- NOTE | 2024-12-01 11:54 | DVH ---
US THORACENTESIS, HISTORY: THORACENTESIS PROCEDURE: Informed consent was obtained. The patient was seated on the bed. A limited localization u ltrasound of the left thorax was obtained, and the optimal approach was marked on the skin. The area was prepped with chlorhexidine which was allowed to dry and draped in the usual sterile fashion. Time out was performed. The skin and the soft tissues were infiltrated with 1% lidocaine. A 5.5 Samoan ce ntesis needle catheter was advanced into left pleural space. Following aspiration of fluid, the oksana ter was advanced and the needle removed. About 1450 cc of fluid was drained. Specimen/s was/were sent for appropriate cultures/cytology/cultures and cytology. No immediate complication was identified. FINDINGS: Moderate left pleural effusion. Aspirated fluid is clear and serous. IMPRESSION: Successful left thoracentesis with 1.5L removed.
--- NOTE | 2024-12-01 13:58 | DVHPNRES ---
Progress Note Date Seen: December 01, 2024 Resident Creating Document: NIGHAT SOLANO RESIDENT Has the PT tested + for MRSA If YES, has PT been informed?: No Medical Necessity Reason Pt with a Central, PICC or Fol: No Medical Necessity Reason History of Present Illness 73-year-old male with significant cardiac history including prior CABG and stent placements, presents accompanied by for evaluation of shortness of breath at rest for the past few days. Orthopnea and PND. No leg edema. He reports intermittent chest pain that has not changed in character and is not present at the time of evaluation. Patient was recently hospitalized and discharged. He reports compliance with medications and dialysis. Denies recent increase in oxygen requirements. No shocks since recent AICD placement. No history suggestive of ACS at this time. Past Medical History: Coronary artery disease, [place],Systolic heart failure,COPD, oxygen-dependent at home,ESRD on hemodialysis,Hypertension,Hyperlipidemia,Diabetes mellitus,,Anemia,Hepatitis C 12/01/2024 Patient is a 74-year-old man with significant past medical history including CABG, systolic heart failure, coronary artery disease and also end-stage renal failure currently on hemodialysis patient presented to the ED with a chief complaint of shortness of breaths has been ongoing for the past 4 days. Per patient he mentioned that the shortness of breath is associated with no orthopnea paroxysmal nocturnal dyspnea and dyspnea on exertion patient also mentioned that he had chest pain that is more right-sided worse with movement and also started the time of the AICD generator implantation which was done in October of this year. Patient's initial findings in the ED revealed troponin of 124,127; BNP over 3000 and 12 lead EKG showed sinus rhythm with left ventricular hypertrophy with possible anterior ST-elevation notable in lead V2 and V3. Current echocardiogram revealed an ejection fraction between 35-40% ( 10/2024) time of my evaluation. Chest x-ray revealed moderate size pleural effusion notable on the left side. And chest US showed moderate pleural effusion. At the time of my evaluation patient had already had thoracentesis and currently pending fluid analysis. Patient is also pending his dialysis today. Creatinine levels this morning was at 11.07. Subjective Review of Systems Constitutional: Denies fever no chills no feeling of malaise HEENT: Denies headache, ear pain, ear discharges, conjunctivitis, nasal discharge throat pain Cardiovascular: Denies chest pain, palpitation, orthopnea, PND, or pedal edema Respiratory: Shortness of breath, 4 L of oxygen GI: Denies abdominal pain, nausea, vomiting, diarrhea, hematemesis, hematochezia, : Denies frequency, urgency, hematuria, Endocrine: Denies unintentional weight gain or weight loss, feeling of hot flashes, Alfa: Denies easy bruising, bleeding disorders, epistaxis Musculoskeletal: Denies joint pains, muscle aches Psych: No evidence of depression, mariah, suicidal ideation Objective vital signs Vital Sign Date Time Temp Pulse Resp B/P (MAP) Pulse Ox O2 Delivery O2 Flow Rate FiO2 12/01/24 13:18 97.9 62 18 90/47 (61) 97 97.9 12/01/24 04:42 Nasal Cannula* 2 28 Total Intake and Output 11/30/24 11/30/24 12/01/24 15:00 23:00 07:00 Intake Total 0 ml Balance 0 ml medications Current Medications Medications Dose Ordered Sig/Edson Route Start Time Stop Time Status Last Admin Dose Admin Furosemide 40 mg DAILY IV 12/01/24 10:00 Clopidogrel Bisulfate 75 mg DAILY PO 12/01/24 10:00 12/01/24 09:25 75 MG Aspirin 81 mg DAILY PO 12/01/24 10:00 12/01/24 09:27 81 MG Sacubitril/ Valsartan 1 tab BID PO 12/01/24 10:00 12/01/24 09:25 1 TAB Carvedilol 12.5 mg Q12HR PO 12/01/24 10:00 12/01/24 09:27 12.5 MG Ranolazine 500 mg BID PO 12/01/24 10:00 12/01/24 09:29 500 MG Hydralazine HCl 10 mg Q6HP PRN IV 12/01/24 10:00 Examination General Appearance: Alert, Oriented X3, Cooperative, No acute distress HEENT: Atraumatic, PERRLA, EOMI, Mucous membrane moist/pink Respiratory: Crackles heard bilaterally at the lower lung bases Cardiovascular: Regular rate, Normal S1, Normal S2, No murmurs, no chest wall tenderness Abdominal: NO distention, no tenderness, bowel sounds present, no scars noted Extremities: No clubbing, No cyanosis, No edema, Normal pulses, No tenderness/swelling Skin: No rashes, No breakdown, No significant lesion Neuro: Normal gait, Normal speech, Strength at 5/5 X4 ext, Normal tone, Sensation intact, Cranial nerves 3-12 NL, Reflexes 2+ Psych/Mental Status: Mental status NL, Mood NL laboratory and microbiology Laboratory Tests 12/01/24 08:30 12/01/24 04:36 Test 12/01/24 04:36 Range/Units Serum Glucose 85 74-106 mg/dL Problem List/Assessment/Plan Problem List/Assessment/Plan Assessment Acute on chronic hypoxic respiratory failure End-stage kidney disease on hemodialysis Moderate left pleural effusion, s/p thoracentesis Acute on chronic HFrEF Coronary artery disease status post CABG and stent placement Status post AICD placement Hypertension Hyperlipidemia Type 2 diabetes Hepatitis-C Hypercalcemia Plan Status post thoracentesis today, pending fluid analysis Continue GDM T, Continue guideline directed medical therapy for CHF as renal function permits, but Mineralcorticoid and SGLP2 inhibitor contraindicated, ESRD Dual-antiplatelet therapy and lipid-lowering agent Pending hemodialysis this afternoon Continue home medications Goal of care discussed for 20 minutes: Full code Case and plan discussed with Dr. Hamilton Plan discussed with: Patient Date of Service: December 01, 2024 Billing Provider: JANIE HAMILTON MD Common Visit Codes: [id number] INP/OBS CARE(HIGH) NIGHAT SOLANO RESIDENT December 01, 2024 13:58 JANIE HAMILTON MD December 01, 2024 18:58
[2024-12-01 15:05] LABS: Body Fluid Red Blood Cells 0 CUMM (0-2000); Body Fluid White Blood Cells 892 CUMM (0-200)
[2024-12-01] MEDS: EPOETIN ALFA-EPBX 4,000 UNIT/ML VIAL SC ONE (21:00)
[2024-12-02] VITALS (8 sets, daily range): BP systolic 104–124; BP diastolic 50–63; PULSE 71–84; RESP 16–20; TEMP 97.7–98.6; O2SAT 96–100
--- NOTE | 2024-12-02 09:23 | CONS ---
Pharmacy Clinical Information: CQM HF (missing LIPID LOWERING DRUGS, ANTI-HYPERGLYCEMIC DRUGS) Patient's current hemoglobin A1c is 5%, which is categorized as non-diabetes. Not recommended to start antihyperglycemic medication at this time. Per medication reconciliation, patient takes atorvastatin 40mg at home. Given history of [place], AHA/ACC guidelines recommend a high intensity statin for patients with ASCVD events. Please consider resuming atorvastatin. DEMETRA PEREZ PHARMACIST December 02, 2024 09:23
[2024-12-02 10:06] LABS: Protein, Body Fluid 4.3 g/dL (.)
[2024-12-02 10:29] LABS: Hepatitis B Surface Antigen Negative (Negative)
[2024-12-02 10:57] LABS: Hepatitis A Ab IgM Negative; Hepatitis B Core IgM Negative (Negative)
[2024-12-02 11:02] LABS: Hepatitis C Antibody Positive (Negative)
[2024-12-02 13:19] LABS: Potassium 3.8 mmol/L (3.5-5.1)
[2024-12-02 13:20] LABS: Anion Gap 8 (5-15); Calcium 9.8 mg/dL (8.7-10.4)
[2024-12-02 13:22] LABS: Carbon Dioxide 31 mmol/L (20-31); Chloride 97 mmol/L (98-107); Sodium 136 mmol/L (136-145)
[2024-12-02 13:25] LABS: BUN/Creatinine Ratio 4.3 (10.0-20.0)
[2024-12-02 13:31] LABS: Blood Urea Nitrogen 33 mg/dL (9-23); Glucose 196 mg/dL (74-106)
--- NOTE | 2024-12-02 16:14 | DVHPN2 ---
Progress Note - Dictate Date Seen: December 02, 2024 Has the PT tested + for MRSA If YES, has PT been informed?: No Medical Necessity Reason Pt with a Central, PICC or Fol: No Subjective Underwent dialysis today. Status post thoracentesis yesterday. vital signs Vital Sign Date Time Temp Pulse Resp B/P (MAP) Pulse Ox O2 Delivery O2 Flow Rate FiO2 12/02/24 13:12 98.0 74 16 109/62 (78) 98 98.0 12/02/24 08:00 Nasal Cannula* 2 28 Total Intake and Output 12/01/24 12/01/24 12/02/24 15:00 23:00 07:00 Output Total 300 ml Balance -300 ml medications Current Medications Medications Dose Ordered Sig/Edson Route Start Time Stop Time Status Last Admin Dose Admin Furosemide 40 mg DAILY IV 12/01/24 10:00 12/02/24 10:00 40 MG Clopidogrel Bisulfate 75 mg DAILY PO 12/01/24 10:00 12/02/24 12:33 75 MG Aspirin 81 mg DAILY PO 12/01/24 10:00 12/02/24 12:33 81 MG Sacubitril/ Valsartan 1 tab BID PO 12/01/24 10:00 12/02/24 12:33 1 TAB Carvedilol 12.5 mg Q12HR PO 12/01/24 10:00 12/02/24 12:32 12.5 MG Ranolazine 500 mg BID PO 12/01/24 10:00 12/02/24 12:33 500 MG Hydralazine HCl 10 mg Q6HP PRN IV 12/01/24 10:00 objective Alert, cooperative HEENT: Normocephalic Lungs: Decreased breath sounds, some crackles in the right side CV: Regular rate and rhythm, no murmur Abdomen: Soft, bowel sounds present No lower extremity edema laboratory and microbiology Laboratory Tests 12/02/24 13:00 12/01/24 08:30 Test 12/02/24 13:00 Range/Units Serum Glucose 196 #H 74-106 mg/dL Problem List End-stage kidney disease on hemodialysis Acute on chronic hypoxic respiratory failure Moderate left pleural effusion Systolic heart failure Coronary artery disease status post CABG and stent placement Status post AICD placement Hypertension Hyperlipidemia Type 2 diabetes Hepatitis-C Hypercalcemia Assessment/Plan Hemodialysis was completed today s/p Thoracentesis stable for dc from renal standpoint Plan discussed with: Other SHAREE KHANNA MD December 02, 2024 16:14
--- NOTE | 2024-12-02 17:44 | DVHPNRES ---
Progress Note Date Seen: December 02, 2024 Resident Creating Document: NIGHAT SOLANO RESIDENT Has the PT tested + for MRSA If YES, has PT been informed?: No Medical Necessity Reason Pt with a Central, PICC or Fol: No Medical Necessity Reason History of Present Illness 73-year-old male with significant cardiac history including prior CABG and stent placements, presents accompanied by for evaluation of shortness of breath at rest for the past few days. Orthopnea and PND. No leg edema. He reports intermittent chest pain that has not changed in character and is not present at the time of evaluation. Patient was recently hospitalized and discharged. He reports compliance with medications and dialysis. Denies recent increase in oxygen requirements. No shocks since recent AICD placement. No history suggestive of ACS at this time. Past Medical History: Coronary artery disease, [place],Systolic heart failure,COPD, oxygen-dependent at home,ESRD on hemodialysis,Hypertension,Hyperlipidemia,Diabetes mellitus,,Anemia,Hepatitis C 12/01/2024 Patient is a 74-year-old man with significant past medical history including CABG, systolic heart failure, coronary artery disease and also end-stage renal failure currently on hemodialysis patient presented to the ED with a chief complaint of shortness of breaths has been ongoing for the past 4 days. Per patient he mentioned that the shortness of breath is associated with no orthopnea paroxysmal nocturnal dyspnea and dyspnea on exertion patient also mentioned that he had chest pain that is more right-sided worse with movement and also started the time of the AICD generator implantation which was done in October of this year. Patient's initial findings in the ED revealed troponin of 124,127; BNP over 3000 and 12 lead EKG showed sinus rhythm with left ventricular hypertrophy with possible anterior ST-elevation notable in lead V2 and V3. Current echocardiogram revealed an ejection fraction between 35-40% ( 10/2024) time of my evaluation. Chest x-ray revealed moderate size pleural effusion notable on the left side. And chest US showed moderate pleural effusion. At the time of my evaluation patient had already had thoracentesis and currently pending fluid analysis. Patient is also pending his dialysis today. Creatinine levels this morning was at 11.07. 12/02: Patient is seen and examined today. He just had his hemodialysis today feeling much better. Yesterday patient had thoracentesis done. Fluid analysis revealed WBC 892, fluid protein/serum protein greater than 0.5, Patient most likely has an exudative pleural effusion. Patient reports Francis feeling much better today compared to yesterday he had 2.5 L of fluids after dialysis today. His dialysis is usually Saturday and Saturday. He is scheduled for another dialysis tomorrow before he goes home we will discussed with the nephrology team. Subjective Review of Systems Constitutional: Denies fever no chills no feeling of malaise HEENT: Denies headache, ear pain, ear discharges, conjunctivitis, nasal discharge throat pain Cardiovascular: Denies chest pain, palpitation, orthopnea, PND, or pedal edema Respiratory: Denies shortness of breath, cough cough, sputum production, hemoptysis, GI: Denies abdominal pain, nausea, vomiting, diarrhea, hematemesis, hematochezia, : Denies frequency, urgency, hematuria, Endocrine: Denies unintentional weight gain or weight loss, feeling of hot flashes, Alfa: Denies easy bruising, bleeding disorders, epistaxis Musculoskeletal: Denies joint pains, muscle aches Psych: No evidence of depression, mariah, suicidal ideation Objective vital signs Vital Sign Date Time Temp Pulse Resp B/P (MAP) Pulse Ox O2 Delivery O2 Flow Rate FiO2 12/02/24 16:55 98.6 77 17 124/62 (82) 100 98.6 12/02/24 08:00 Nasal Cannula* 2 28 Total Intake and Output 12/01/24 12/01/24 12/02/24 15:00 23:00 07:00 Output Total 300 ml Balance -300 ml medications Current Medications Medications Dose Ordered Sig/Edson Route Start Time Stop Time Status Last Admin Dose Admin Furosemide 40 mg DAILY IV 12/01/24 10:00 12/02/24 10:00 40 MG Clopidogrel Bisulfate 75 mg DAILY PO 12/01/24 10:00 12/02/24 12:33 75 MG Aspirin 81 mg DAILY PO 12/01/24 10:00 12/02/24 12:33 81 MG Sacubitril/ Valsartan 1 tab BID PO 12/01/24 10:00 12/02/24 12:33 1 TAB Carvedilol 12.5 mg Q12HR PO 12/01/24 10:00 12/02/24 12:32 12.5 MG Ranolazine 500 mg BID PO 12/01/24 10:00 12/02/24 12:33 500 MG Hydralazine HCl 10 mg Q6HP PRN IV 12/01/24 10:00 Examination General Appearance: Alert, Oriented X3, Cooperative, No acute distress HEENT: Atraumatic, PERRLA, EOMI, Mucous membrane moist/pink Respiratory: Clear to auscultation, Normal air movement Cardiovascular: Regular rate, Normal S1, Normal S2, No murmurs, no chest wall tenderness Abdominal: NO distention, no tenderness, bowel sounds present, no scars noted Extremities: No clubbing, No cyanosis, No edema, Normal pulses, No tenderness/swelling Skin: No rashes, No breakdown, No significant lesion Neuro: Normal gait, Normal speech, Strength at 5/5 X4 ext, Normal tone, Sensation intact, Cranial nerves 3-12 NL, Reflexes 2+ Psych/Mental Status: Mental status NL, Mood NL laboratory and microbiology Laboratory Tests 12/02/24 13:00 12/01/24 08:30 Test 12/02/24 13:00 Range/Units Serum Glucose 196 #H 74-106 mg/dL Microbiology Date/Time Source Procedure Growth Status 12/01/24 12:00 Pleural Fluid Gram Stain - Final Resulted 12/01/24 12:00 Pleural Fluid Aerobic Culture - Preliminary Resulted 12/01/24 06:54 Nose MRSA Screen - Final Complete Problem List/Assessment/Plan Problem List/Assessment/Plan Assessment Acute on chronic hypoxic respiratory failure End-stage kidney disease on hemodialysis Moderate left pleural effusion, s/p thoracentesis Acute on chronic HFrEF Coronary artery disease status post CABG and stent placement Status post AICD placement Hypertension Hyperlipidemia Type 2 diabetes Hepatitis-C Hypercalcemia Exudative pleural effusion Plan Status post thoracentesis today, pending fluid analysis Continue GDM T, Continue guideline directed medical therapy for CHF as renal function permits, but Mineralcorticoid and SGLP2 inhibitor contraindicated, ESRD Dual-antiplatelet therapy and lipid-lowering agent Pending hemodialysis this afternoon Continue home medications Status post dialysis today Goal of care discussed for 18 minutes: Full code Case and plan discussed with Dr. Hamilton Plan discussed with: Patient Date of Service: December 02, 2024 Billing Provider: JANIE HAMILTON MD Common Visit Codes: [id number] INP/OBS CARE(HIGH) NIGHAT SOLANO RESIDENT December 02, 2024 17:44 JANIE HAMILTON MD December 02, 2024 18:05
[2024-12-02] MEDS: cefTRIAXone 1GM/50ML D5W 50 ML IV ONE (18:19)
[2024-12-03] VITALS (7 sets, daily range): BP systolic 110–127; BP diastolic 57–74; PULSE 70–81; RESP 16–18; TEMP 97.8–98.1; O2SAT 98–100
[2024-12-03] MEDS: cefTRIAXone 1GM/50ML D5W 50 ML IV SCH (09:25)
--- NOTE | 2024-12-03 09:26 | ECG ---
[facility] Test Date: 2024-12-01 Test Time: 11:54:28 Pat Name: MAXIMUS MAR Department: TELE Room: 0271 A Gender: M Carpenter Maintenance: : 1950 Requested By: KENNETH PARNELL Order Number: [id number] Reading MD: Armana Cardona Measurements Intervals [place] Rate: 60 P: 99 KS: 196 QRS: -8 QRSD: 110 T: 113 QT: 461 QTc: 461 Interpretive Statements Sinus rhythm LVH with secondary repolarization abnormality Anterior ST elevation, probably due to LVH Electronically Signed On 12-06-2024 21:54:06 PDT by Armaan Cardona Please click the below link to view image of tracing.
--- NOTE | 2024-12-03 09:26 | ECG ---
[facility] Test Date: 2024-12-01 Test Time: 11:53:16 Pat Name: MAXIMUS MAR Department: TELE Room: 0271 A Gender: M Radiology Director: : 1950 Requested By: KENNETH PARNELL Order Number: [id number] Reading MD: Armaan Cardona Measurements Intervals [place] Rate: 63 P: 88 UT: 193 QRS: -8 QRSD: 98 T: 96 QT: 441 QTc: 452 Interpretive Statements Incomplete analysis due to missing data in precordial lead(s) Sinus rhythm LVH with secondary repolarization abnormality Missing lead(s): V4 Electronically Signed On 12-06-2024 21:54:03 PDT by Armaan Cardona Please click the below link to view image of tracing.
[2024-12-03] MEDS: SODIUM CHL 0.9% 1000 ML BAG XX ONE (13:30)
--- NOTE | 2024-12-03 13:31 | DVHDSRES ---
Discharge Summary Date of Admission Resident Creating Document: NIGHAT SOLANO RESIDENT December 01, 2024 at 02:58 Date of Discharge: December 03, 2024 Admitting Diagnosis shortness of breath Labs/Diagnostic Data: PATIENT: MAXIMUS MAR JR ACCT: [id number] UNIT: [id number] : 1950 LOC: OVERFLOW ROOM / BED: [facility] / A AGE / SEX: 74 / M ADM STATUS: ADM IN SERVICE 0956 ORDERING PHYSICIAN: KISHAN SALINAS MD PROCEDURE(s): CXRP - CHEST PORTABLE REASON: POST THORACENTESIS ORDER NUMBER(s): [id number], ACCESSION NUMBER(s): [id number] INDICATION: POST THORACENTESIS TECHNIQUE: Frontal view of the chest. COMPARISON: XY CHEST PORTABLE on DOS: 12/01/24, XY CHEST PORTABLE on DOS: 11/05/24, XY CHEST PORTABLE on DOS: 11/04/24, XY CHEST PORTABLE on DOS: 11/04/24, XY CHEST PORTABLE on DOS: 10/27/24 FINDINGS: Small left pleural effusion, left basilar opacity. The heart and mediastinal contours are grossly unremarkable. . . The bony structures of the chest are intact without fracture. IMPRESSION: 1. Small left pleural effusion, left basilar opacity. No Pneumothorax ATED BY: TIM ADAMS MD DICTATED DATE/TIME: 12/01/24 1132 PATIENT: MAXIMUS MAR JR ACCT: [id number] UNIT: [id number] : 1950 LOC: OVERFLOW ROOM / BED: [facility] / A AGE / SEX: 74 / M ADM STATUS: ADM IN SERVICE 0557 ORDERING PHYSICIAN: BEULAH COTA PROCEDURE(s): CHSTU - CHEST ULTRASOUND REASON: left pleural efussion ORDER NUMBER(s): [id number], ACCESSION NUMBER(s): [id number] Left Chest Sonogram Clinical history: left pleural efussion Technique: Limited sonographic evaluation of the left chest was performed. Findings/Impression: There is a moderate pleural effusion. ATED BY: DEREK SHOEMAKER MD DICTATED DATE/TIME: 12/01/24 0817 PATIENT: MAXIMUS MAR JR ACCT: [id number] UNIT: [id number] : 1950 [facility]GE / SEX: 74 / M ADM STATUS: ADM IN SERVICE 0122 ORDERING PHYSICIAN: KENNETH PARNELL DO PROCEDURE(s): CXRP - CHEST PORTABLE REASON: sob/cp ORDER NUMBER(s): [id number], ACCESSION NUMBER(s): [id number] CHEST RADIOGRAPH Indication: sob/cp Technique: Single frontal view of the chest was obtained COMPARISON: XY CHEST PORTABLE on DOS: 11/05/24, XY CHEST PORTABLE on DOS: 11/04/24, XY CHEST PORTABLE on DOS: 11/04/24, XY CHEST PORTABLE on DOS: 10/27/24, XY CHEST PORTABLE on DOS: 10/21/24 FINDINGS: Lines and Tubes: Median sternotomy. Right chest AICD. Lungs: Clear. Pleura: Moderate left pleural effusion. No pneumothorax. Cardiomediastinal contours: Unremarkable. Bones: Unremarkable. IMPRESSION: Moderate left pleural effusion. ATED BY: DEREK SHOEMAKER MD DICTATED DATE/TIME: 12/01/24 0540 Laboratory Results Test 12/02/24 13:00 12/01/24 14:30 12/01/24 12:00 12/01/24 08:30 Sodium Level 136 mmol/L (136-145) Potassium Level 3.8 mmol/L (3.5-5.1) Chloride Level 97 mmol/L (98-107) Carbon Dioxide Level 31 mmol/L (20-31) Anion Gap 8 (5-15) Blood Urea Nitrogen 33 mg/dL (9-23) Creatinine 7.75 mg/dL (0.700-1.30) Glomerular Filtration Rate Calc 7 mL/min (>90) BUN/Creatinine Ratio 4.3 (10.0-20.0) Serum Glucose 196 mg/dL (74-106) Calcium Level 9.8 mg/dL (8.7-10.4) Lactate Dehydrogenase 241 U/L (120-246) Hepatitis A IgM Antibody Negative Hepatitis B Surface Antigen Negative (Negative) Hepatitis B Core IgM Antibody Negative (Negative) Hepatitis C Antibody Positive (Negative) Body Fluid Source Pleural fluid Body Fluid pH 9.0 Body Fluid WBC (Manual) 892 CUMM (0-200) Body Fluid RBC (Manual) 0 CUMM (0-2000) Body Fluid Mononuclear Cells 95 % Body Fluid Polymorphonuclear Cells 5 % (0-25) Body Fluid Glucose 95 mg/dL (.) Body Fluid Total Protein 4.3 g/dL (.) Body Fluid Lactate Dehydrogenase 175 IU/L (.) White Blood Count 5.3 10^3/uL (4.4-10.8) Red Blood Count 3.09 10^6/uL (4.5-5.90) Hemoglobin 10.2 g/dL (13.5-17.5) Hematocrit 30.1 % (41.0-53.0) Mean Corpuscular Volume 97.5 fL (80.0-100.0) Mean Corpuscular Hemoglobin 32.9 pg (28.0-32.0) Mean Corpuscular Hemoglobin Concent 33.7 g/dL (32.0-36.0) Red Cell Distribution Width 14.5 % (11.8-14.3) Platelet Count 166 10^3/uL (140-450) Mean Platelet Volume 7.2 fL (6.9-10.8) Neutrophils (%) (Auto) 63.2 % (37.0-80.0) Lymphocytes (%) (Auto) 18.9 % (10.0-50.0) Monocytes (%) (Auto) 15.3 % (0.0-12.0) Eosinophils (%) (Auto) 2.0 % (0.0-7.0) Basophils (%) (Auto) 0.6 % (0.0-2.0) Neutrophils # (Auto) 3.3 10 ^3/uL (1.6-8.6) Lymphocytes # (Auto) 1.0 10 ^3/uL (0.4-5.4) Monocytes # (Auto) 0.8 10 ^3/uL (0-1.3) Eosinophils # (Auto) 0.1 10 ^3/uL (0-0.8) Basophils # (Auto) 0 10 ^3/uL (0-0.2) Nucleated Red Blood Cells 0.0 % Prothrombin Time 11.2 sec (9.3-11.8) Prothrombin Time INR 1.06 (0.9-1.15) Activated Partial Thromboplast Time 25.6 SEC (24.5-34.5) Test 12/01/24 04:36 12/01/24 01:34 Total Bilirubin 0.2 mg/dL (0.2-1.0) Aspartate Amino Transferase (AST) 30 U/L (13-40) Alanine Aminotransferase (ALT) 29 U/L (7-40) Alkaline Phosphatase 118 U/L (46-116) Troponin I High Sensitivity 127 ng/L (</=54) Total Protein 7.7 g/dL (5.7-8.2) Albumin 4.2 g/dL (3.2-4.8) Thyroid Stimulating Hormone (TSH) 0.74 uIU/mL (0.55-4.78) Hemoglobin A1c 5.0 % A1C (<5.7) Magnesium Level 3.0 mg/dL (1.6-2.6) B-Type Natriuretic Peptide 3654.80 pg/mL (0-100) Other Laboratory Tests 12/02/24 13:00 12/01/24 08:30 Brief Hx & Hospital Course: History of Present Illness 73-year-old male with significant cardiac history including prior CABG and stent placements, presents accompanied by for evaluation of shortness of breath at rest for the past few days. Orthopnea and PND. No leg edema. He reports intermittent chest pain that has not changed in character and is not present at the time of evaluation. Patient was recently hospitalized and discharged. He reports compliance with medications and dialysis. Denies recent increase in oxygen requirements. No shocks since recent AICD placement. No history suggestive of ACS at this time. 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 Per patient he mentioned that the shortness of breath is associated with no orthopnea paroxysmal nocturnal dyspnea and dyspnea on exertion patient also mentioned that he had chest pain that is more right-sided worse with movement and also started the time of the AICD generator implantation which was done in October of this year. Patient's initial findings in the ED revealed troponin of 124,127; BNP over 3600 and 12 lead EKG showed sinus rhythm with left ventricular hypertrophy with possible anterior ST-elevation notable in lead V2 and V3. Current echocardiogram revealed an ejection fraction between 35-40% ( 10/2024) time of my evaluation. Chest x-ray revealed moderate size pleural effusion notable on the left side. And chest US showed moderate pleural effusion. Thoracentesis was done and fluid analysis revealed exudative pleural effusion and also gram staining showed many WBC counts. Patient was started on antibiotics, Lasix, and he also had dialysis yesterday and today. Patient is feeling much better today. His breathing is improved and he is back to is his back to his baseline oxygen level and vitals are stable. Overall he is doing well patient will be going home today after the dialysis. Review of systems Constitutional: Denies fever no chills no feeling of malaise HEENT: Denies headache, ear pain, ear discharges, conjunctivitis, nasal discharge throat pain Cardiovascular: Denies chest pain, palpitation, orthopnea, PND, or pedal edema Respiratory: Denies shortness of breath, cough cough, sputum production, hemoptysis, GI: Denies abdominal pain, nausea, vomiting, diarrhea, hematemesis, hematochezia, : Denies frequency, urgency, hematuria, Endocrine: Denies unintentional weight gain or weight loss, feeling of hot flashes, Alfa: Denies easy bruising, bleeding disorders, epistaxis Musculoskeletal: Denies joint pains, muscle aches Psych: No evidence of depression, mariah, suicidal ideation Examination General Appearance: Alert, Oriented X3, Cooperative, No acute distress HEENT: Atraumatic, PERRLA, EOMI, Mucous membrane moist/pink Respiratory: Clear to auscultation, Normal air movement Cardiovascular: Regular rate, Normal S1, Normal S2, No murmurs, no chest wall tenderness Abdominal: NO distention, no tenderness, bowel sounds present, no scars noted Extremities: No clubbing, No cyanosis, No edema, Normal pulses, No tenderness/swelling Skin: No rashes, No breakdown, No significant lesion Neuro: Normal gait, Normal speech, Strength at 5/5 X4 ext, Normal tone, Sensation intact, Cranial nerves 3-12 NL, Reflexes 2+ Psych/Mental Status: Mental status NL, Mood NL Diagnoses Acute on chronic hypoxic respiratory failure End-stage kidney disease on hemodialysis Moderate left pleural effusion, s/p thoracentesis Acute on chronic HFrEF NSTEMI type II Coronary artery disease status post CABG and stent placement Status post AICD placement Hypertension Hyperlipidemia Type 2 diabetes Hepatitis-C Hypercalcemia Exudative pleural effusion Discharge plan Resume home medications Levofloxacin for 3 more days Follow up at the discharge Clinic in 7 days Follow up with PCP Follow up with industrial sociologist and saddle mechanic as per their recommendations Discharge plan discussed with Operations or Procedures PATIENT: MAXIMUS MAR JR ACCT: [id number] UNIT: [id number] : 1950 LOC: OVERFLOW ROOM / BED: [address] [place] [address] / AGE / SEX: 74 / M ADM STATUS: ADM IN SERVICE 0000 ORDERING PHYSICIAN: BEULAH COTA RESIDENT PROCEDURE(s): THORA - THORACENTESIS REASON: THORACENTESIS ORDER NUMBER(s): [id number], ACCESSION NUMBER(s): [id number] US THORACENTESIS, HISTORY: THORACENTESIS PROCEDURE: Informed consent was obtained. The patient was seated on the bed. A limited localization ultrasound of the left thorax was obtained, and the optimal approach was marked on the skin. The area was prepped with chlorhexidine which was allowed to dry and draped in the usual sterile fashion. Time out was performed. The skin and the soft tissues were infiltrated with 1% lidocaine. A 5.5 Italian centesis needle catheter was advanced into left pleural space. Following aspiration of fluid, the catheter was advanced and the needle removed. About 1450 cc of fluid was drained. Specimen/s was/were sent for appropriate cultures/cytology/cultures and cytology. No immediate complication was identified. FINDINGS: Moderate left pleural effusion. Aspirated fluid is clear and serous. IMPRESSION: Successful left thoracentesis with 1.5L removed. ATED BY: KISHAN SALINAS MD DICTATED DATE/TIME: 12/01/24 1152 SIGN Condition at Discharge: Good Final Diagnosis/Problems List Acute on chronic hypoxic respiratory failure NSTEMI TYPE II End-stage kidney disease on hemodialysis Moderate left pleural effusion, s/p thoracentesis Acute on chronic exacerbation HFrEF Coronary artery disease status post CABG and stent placement Status post AICD placement Hypertension Hyperlipidemia Type 2 diabetes Hepatitis-C Hypercalcemia Exudative pleural effusion Discharge Disposition: Home Discharge Instruct/Medications Diet: Renal Diet comment: and cardiac Activity: No Restrictions, As Tolerated Follow Up/Referral: 7 days at the discharge clinic Medications: Home medication levofloxain Discharge Statement: "Patient was advised to return to the ER or call 911 if any headaches, dizziness, shortness of breath, chest pain, abdominal pain, bleeding, fevers, or worsening of medical condition. Patient was counseled about treatment plan, medications, possible side effects, patientverbalized understanding. All questions were answered to the best of my ability. This discharge took greater then 30 minutes in planning, reviewing documentation, counseling the patient, and discussing with other team members." ASSESSMENT ASSESSMENT Assessment Acute on chronic hypoxic respiratory failure End-stage kidney disease on hemodialysis Moderate left pleural effusion, s/p thoracentesis Acute on chronic HFrEF Coronary artery disease status post CABG and stent placement Status post AICD placement Hypertension Hyperlipidemia Type 2 diabetes Hepatitis-C Hypercalcemia Exudative pleural effusion NIGHAT SOLANO RESIDENT December 03, 2024 13:31
--- NOTE | 2024-12-03 16:06 | DVHPN2 ---
Progress Note - Dictate Date Seen: December 03, 2024 Has the PT tested + for MRSA If YES, has PT been informed?: No Medical Necessity Reason Pt with a Central, PICC or Fol: No Subjective Underwent dialysis today. Status post thoracentesis vital signs Vital Sign Date Time Temp Pulse Resp B/P (MAP) Pulse Ox O2 Delivery O2 Flow Rate FiO2 12/03/24 14:49 97.8 70 16 98 12/03/24 12:20 117/71 (86) 12/03/24 08:00 Nasal Cannula* 2 28 Total Intake and Output 12/02/24 12/02/24 12/03/24 15:00 23:00 07:00 Intake Total 700 ml 150 ml Balance 700 ml 150 ml medications Current Medications Medications Dose Ordered Sig/Edson Route Start Time Stop Time Status Last Admin Dose Admin Furosemide 40 mg DAILY IV 12/01/24 10:00 12/02/24 10:00 40 MG Clopidogrel Bisulfate 75 mg DAILY PO 12/01/24 10:00 12/02/24 12:33 75 MG Aspirin 81 mg DAILY PO 12/01/24 10:00 12/02/24 12:33 81 MG Sacubitril/ Valsartan 1 tab BID PO 12/01/24 10:00 12/02/24 21:55 1 TAB Carvedilol 12.5 mg Q12HR PO 12/01/24 10:00 12/02/24 21:55 12.5 MG Ranolazine 500 mg BID PO 12/01/24 10:00 12/02/24 21:55 500 MG Hydralazine HCl 10 mg Q6HP PRN IV 12/01/24 10:00 Ceftriaxone Sodium 50 ml @ 100 mls/hr DAILY@09 IV 12/03/24 09:00 12/03/24 09:25 100 MLS/HR objective Alert, cooperative HEENT: Normocephalic Lungs: bilateral good air entry CV: Regular rate and rhythm, no murmur Abdomen: Soft, bowel sounds present No lower extremity edema laboratory and microbiology Laboratory Tests 12/02/24 13:00 12/01/24 08:30 Test 12/02/24 13:00 Range/Units Serum Glucose 196 #H 74-106 mg/dL Problem List End-stage kidney disease on hemodialysis Acute on chronic hypoxic respiratory failure Moderate left pleural effusion Systolic heart failure Coronary artery disease status post CABG and stent placement Status post AICD placement Hypertension Hyperlipidemia Type 2 diabetes Hepatitis-C Hypercalcemia Assessment/Plan Hemodialysis was completed today s/p Thoracentesis stable for dc from renal standpoint f/up at [facility] on Sat Plan discussed with: Patient SHAREE KHANNA MD December 03, 2024 16:06
[2024-12-03] MEDS ORDERED: LEVO750T40 PO (17:26)
== END 2024-12-03 18:20 | disposition home or self-care (01) | DRG 280 ==
LOC: ER 01:17 → OVERFLOW 02:58 → WEST WING 23:59
PROVIDERS: ADMIT Hospitalist; ATTEND Hospitalist
PROC: 0W9B3ZX Drainage of Left Pleural Cavity, Percutaneous Approach, Diagnostic (ICD-10-PCS; principal; 2024-12-01)
PROC: 5A1D70Z Performance of Urinary Filtration, Intermittent, Less than 6 Hours Per Day (ICD-10-PCS; 2024-12-02)
DX: I13.2 Hypertensive heart and chronic kidney disease with heart failure and with stage 5 chronic kidney disease, or end stage renal disease (principal); I50.23 Acute on chronic systolic (congestive) heart failure; I21.A1 Myocardial infarction type 2; J96.21 Acute and chronic respiratory failure with hypoxia; N18.6 End stage renal disease; J91.8 Pleural effusion in other conditions classified elsewhere; E83.52 Hypercalcemia; J44.9 Chronic obstructive pulmonary disease, unspecified; E11.22 Type 2 diabetes mellitus with diabetic chronic kidney disease; N40.0 Benign prostatic hyperplasia without lower urinary tract symptoms; E78.5 Hyperlipidemia, unspecified; B19.20 Unspecified viral hepatitis C without hepatic coma; D64.9 Anemia, unspecified; I25.10 Atherosclerotic heart disease of native coronary artery without angina pectoris; Z99.81 Dependence on supplemental oxygen; Z99.2 Dependence on renal dialysis; Z95.810 Presence of automatic (implantable) cardiac defibrillator; Z95.5 Presence of coronary angioplasty implant and graft; Z95.1 Presence of aortocoronary bypass graft; Z79.82 Long term (current) use of aspirin; Z79.899 Other long term (current) drug therapy; Z87.891 Personal history of nicotine dependence
CPT/HCPCS: 32555; 36415; 71045; 76604; 76942; 80048; 80053; 80074; 83036; 83615; 83735; 83880; 83986; 84443; 84484; 85025; 85610; 85730; 87070; 87081; 87205; 89051; 90935; 93005; G0378

== ENCOUNTER 2024-12-08 05:30 | Inpatient (IN) | payer MEDICARE, MEDICAID ==
[2024-12-08] VITALS (61 sets, daily range): BP systolic 88–183; BP diastolic 51–102; PULSE 63–117; RESP 13–37; TEMP 96.5–97.8; O2SAT 86–100
[~2024-12-08] VITALS: Ht 162.6 cm; Wt 70.0 kg
[~2024-12-08 05:30] MED LIST changes: +LEVO750T40 PO
--- NOTE | 2024-12-08 06:14 | ECG ---
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
[2024-12-08] MEDS ORDERED: CLINDAMYCIN 600MG IV 50 ML IV ONE (06:30)
[2024-12-08 06:33] LABS: Potassium 4.9 mmol/L (3.5-5.1)
[2024-12-08 06:34] LABS: Anion Gap 14 (5-15); Carbon Dioxide 26 mmol/L (20-31)
[2024-12-08 06:38] LABS: Basophils # (auto) 0.1 10 ^3/uL (0-0.2); Basophils % (auto) 0.7 % (0.0-2.0); Eosinophils # (auto) 0.1 10 ^3/uL (0-0.8); Eosinophils % (auto) 1.2 % (0.0-7.0); Hematocrit 31.2 % (41.0-53.0); Hemoglobin 10.6 g/dL (13.5-17.5); Lymphocytes # (auto) 0.9 10 ^3/uL (0.4-5.4); Lymphocytes % (auto) 10.7 % (10.0-50.0); Mean Corpuscular Hemoglobin 34.3 pg (28.0-32.0); Mean Corpuscular Hgb Conc. 34.1 g/dL (32.0-36.0); Mean Corpuscular Volume 100.5 fL (80.0-100.0); Monocytes # (auto) 0.7 10 ^3/uL (0-1.3); Monocytes % (auto) 8.9 % (0.0-12.0); Neutrophils # (auto) 6.3 10 ^3/uL (1.6-8.6); Neutrophils % (auto) 78.5 % (37.0-80.0); Platelet Count (auto) 222 10^3/uL (140-450); Red Blood Cells 3.11 10^6/uL (4.5-5.90); Red Cell Distribution Width 14.3 % (11.8-14.3)
[2024-12-08 06:41] LABS: Blood Urea Nitrogen 58 mg/dL (9-23); Chloride 92 mmol/L (98-107); Glucose 133 mg/dL (74-106); Sodium 132 mmol/L (136-145)
[2024-12-08 06:42] LABS: Calcium 10.5 mg/dL (8.7-10.4)
--- NOTE | 2024-12-08 06:45 | ECG ---
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
--- NOTE | 2024-12-08 06:47 | ED.PDOC ---
HPI Comments 74 year old male presents to the ED via EMS with a chief complaint of chest pain onset today (12/08/24). PMHx CHF, COPD, [place], CAD, HTN, DM, ESRD. states he has been experiencing shortness of breath for the past 3 days, began experiencing chest pain this morning. Patient was discharged from [facility] on 12/03/24, received a Thoracentesis on 12/01/24. Patient was supposed to receive Dialysis today, goes Saturday, , Saturday. Denies abdominal pain, nausea, vomiting, diarrhea, headache, dizziness, dysuria, hematuria, hematemesis, fever, chills. No other symptoms or modifying factors present at this time. Chief Complaint: Chest Pain Time Seen by MD: 06:20 Primary Care Provider: ? Reviewed Notes: Medications, Allergies Allergies: Coded Allergies: NO KNOWN ALLERGIES (Unverified , 01/05/24) Home Meds Reported Medications Magnesium Oxide (Magnesium Oxide) 400 Mg Tab, 1 TAB PO DAILY for 90 Days, #90 10/29/24 Meloxicam (Meloxicam) 15 Mg Tab, 1 TAB PO DAILY for 30 Days, #30 10/29/24 Sacubitril-Valsartan (Entresto 24-26 mg) 1 Tab Tab, 1 TAB PO BID for 30 Days, #60 25 Nitroglycerin (Nitrostat) 0.4 Mg Sub, 1 TAB PO UD for 33 Days, #100 10/29/24 Atorvastatin Calcium (ATORVASTATIN CALCIUM) 40 Mg Tab, 1 TAB PO DAILY for 90 Days, #90 10/29/24 Isosorbide Mononitrate (Isosorbide Mononitrate Er) 30 Mg Tab, 1 TAB PO DAILY for 90 Days, #90 10/29/24 Clopidogrel Bisulfate (CLOPIDOGREL) 75 Mg Tab, 1 TAB PO DAILY for 90 Days, #90 10/29/24 Ranolazine (Ranolazine ER) 500 Mg Tab, 1 TAB PO BID for 30 Days, #60 10/29/24 Furosemide (Furosemide) 40 Mg Tab, 1 TAB PO DAILY for 90 Days, #90 01/07/24 Ergocalciferol (Vitamin D) 50,000 Unit Cap, 1 CAP PO QWEEKLY 01/07/24 Omeprazole (Omeprazole Dr) 40 Mg Cap, 1 CAP PO DAILY for 90 Days, #90 01/07/24 Aspirin (Aspirin Low Dose) 81 Mg Chw, 1 TAB PO DAILY 01/07/24 Sevelamer Carbonate (Renvela) 800 Mg Tab, 2 TAB PO TID 01/07/24 Carvedilol (Carvedilol) 25 Mg Tab, 1 TAB PO BID for 90 Days, #180 01/07/24 Oxycodone HCl (Oxycodone Hydrochloride) 15 Mg Tab, 1 TAB PO QID for 30 Days, #120 01/07/24 Discontinued Reported Medications Nifedipine (Nifedipine Er) 90 Mg Tab, 1 TAB PO DAILY for 30 Days, #30 10/29/24 Discontinued Scripts Levofloxacin Hemihydrate (LEVOFLOXACIN) 750 Mg Tab, 1 TAB PO DAILY, #5 TAB Prov:NIGHAT SOLANO 12/03/24 Doxycycline Hyclate (DOXYCYCLINE HYCLATE) 100 Mg Tab, 1 TAB PO BID for 7 Days, #14 TAB Prov:CRAIG NAZARIO MD 11/05/24 Hydrocodone-Acetaminophen (Hydrocodone/Acetaminophen 5-325 mg) 1 Tab Tab, 1 TAB PO TIDP PRN for 6 Days, #18 TAB Prov:CRAIG NAZARIO MD 11/05/24 Information Source: Patient, Relative, Emergency Med Personnel Mode of Arrival: EMS Severity: Moderate Timing: Days Duration: Since onset Prehospital treatment: None Location: Substernal Quality: Sharp Onset: At Rest Cardiac Risk Factors: HTN, Diabetes PE Risk Factors: Other (recent thoracentesis) History of: [place] Modifying Factors: Nothing Associated Signs and Symptoms: SOB Past Medical History PAST MEDICAL HISTORY: CAD, CHF, COPD, DM, ESRD, HTN, [place] Surgical History: CABG, PTCA Family History Family History: Reviewed,noncontributory to illness Social History Smoker: Non-Smoker Alcohol: Occasionally Drugs: Denies Drug Use Lives In: Home Constitutional: denies: chills, diaphoresis, fatigue, fever, malaise, sweats, weakness, others EENTM: denies: blurred vision, double vision, ear bleeding, ear discharge, ear drainage, ear pain, ear ringing, eye pain, eye redness, hearing loss, mouth pain, mouth swelling, nasal discharge, nose bleeding, nose congestion, nose pain, photophobia, tearing, throat pain, throat swelling, voice changes, others Respiratory: reports: shortness of breath; denies: cough, hemoptysis, orthopnea, SOB at rest, SOB with excertion, stridor, wheezing, others Cardiovascular: reports: chest pain; denies: dizzy spells, diaphoresis, Dyspnea on exertion, edema, irregular heart beat, left arm pain, lightheadedness, palpitations, PND, syncope, others Gastrointestinal: denies: abdomen distended, abdominal pain, blood streaked bowels, constipated, diarrhea, dysphagia, difficulty swallowing, hematemesis, melena, nausea, poor appetite, poor fluid intake, rectal bleeding, rectal pain, vomiting, others Genitourinary: denies: burning, dysuria, flank pain, frequency, hematuria, incontinence, penile discharge, penile sore, pain, testicle pain, testicle swelling, urgency, others Neurological: denies: dizziness, fainting, headache, left sided numbness, left sided weakness, numbness, paresthesia, pre-existing deficit, right sided numbness, right sided weakness, seizure, speech problems, tingling, tremors, weakness, others Musculoskeletal: denies: back pain, gout, joint pain, joint swelling, muscle pain, muscle stiffness, neck pain, others Integumetry: denies: bruises, change in color, change in hair/nails, dryness, laceration, lesions, lumps, rash, wounds, others Allergic/Immunocompromised: denies: Difficulty Healing, Frequent Infections, Hives, Itching, others Hematologic/Lymphatic: denies: anemia, blood clots, easy bleeding, easy bruising, swollen glands, others Endocrine: denies: excessive hunger, excessive sweating, excessive thirst, excessive urination, flushing, intolerance to cold, intolerance to heat, unexplained weight gain, unexplained weight loss, others Psychiatric: denies: anxiety, bipolar disorder, depression, hopeless, panic disorder, schizophrenia, sleepless, suicidal, others All Other Systems: Reviewed and Negative Physical Exam General Appearance: Moderate Distress, Normal HEENT: Normal ENT Inspection, Pharynx Normal, TMs Normal Neck: Full Range of Motion, Non-Tender, Normal, Normal Inspection Respiratory: Accessory Muscle Use, Chest Non-Tender, No Accessory Muscle Use, Respiratory Distress Cardiovascular: No JVD, No Murmur, No Gallop, Tachycardia Breast Exam: Deferred Gastrointestinal: No Organomegaly, Non Tender, No Pulsatile Mass, Normal Bowel Sounds, Soft Genitalia: Deferred Pelvic: Deferred Rectal: Deferred Extremities: No calf tenderness, Normal capillary refill, Normal inspection, Normal range of motion, No pedal edema Musculoskeletal : Apperance: Normal Neurologic: Alert, right of way man II-XII nml as Tested, No Motor Deficits, Normal Affect, Normal Mood, No Sensory Deficits Cerebellar Function: NOT DONE Reflexes: NOT DONE Skin: Dry, Normal Color, Warm Peripheral Pulses: 3+ Radial (R), 3+ Radial (L) Lymphatic: No Adenopathy EKG EKG : ST: Old, Inf Was a procedure done? 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 Indication: Hypotension, CVP monitoring Room prepared for procedure: Yes Software Designer performed hand hygien: Yes Maximal sterile barrier precau: Mask/Eye shield, Sterile gown Skin Preparation: Chlorhexidine gluconate, Providine iodine Skin preparation completely dr: Yes Insertion site: Right, Femoral Central line catheter type: Lnc-[id number]-utd dialysis Number of lumens: 3 Intubation Indication: Respiratory Insufficiency Prep: Preoxygenation Pretreated with: Analgesia Medicated with: Vecuronium Intubation Approach: Orotracheal Intubation size: cm (8) CP Differential Dx Differential Diagnosis: A-fib, A-Flutter, Angina, Anxiety / Panic Attack, Atrial Dysrhythmia, Electrolyte Disorder X-Ray, Labs, Meds, VS Vital Signs Date Time Temp Pulse Resp B/P (MAP) Pulse Ox O2 Delivery O2 Flow Rate FiO2 12/08/24 08:00 100 12/08/24 07:20 97.8 105 32 144/72 (96) 99 97.8 12/08/24 07:20 105 32 99 Nasal Cannula* 6 44 12/08/24 06:48 153/88 12/08/24 06:44 114 12/08/24 06:06 117 37 97 Nasal Cannula* 6 44 12/08/24 05:44 121 12/08/24 05:43 97.9 117 37 153/88 (109) 97 97.9 12/08/24 05:32 97.9 120 28 203/107 (139) 95 97.9 Lab Test 12/08/24 07:15 12/08/24 06:41 12/08/24 06:10 Range/Units Troponin I High Sensitivity 107 *H 84 *H </=54 ng/L Lactic Acid Level 2.2 *H 0.4-2.0 mmol/L White Blood Count 8.0 # 4.4-10.8 10^3/uL Red Blood Count 3.11 L 4.5-5.90 10^6/uL Hemoglobin 10.6 L 13.5-17.5 g/dL Hematocrit 31.2 L 41.0-53.0 % Mean Corpuscular Volume 100.5 H 80.0-100.0 fL Mean Corpuscular Hemoglobin 34.3 H 28.0-32.0 pg Mean Corpuscular Hemoglobin Concent 34.1 32.0-36.0 g/dL Red Cell Distribution Width 14.3 11.8-14.3 % Platelet Count 222 140-450 10^3/uL Mean Platelet Volume 7.0 6.9-10.8 fL Neutrophils (%) (Auto) 78.5 37.0-80.0 % Lymphocytes (%) (Auto) 10.7 10.0-50.0 % Monocytes (%) (Auto) 8.9 0.0-12.0 % Eosinophils (%) (Auto) 1.2 0.0-7.0 % Basophils (%) (Auto) 0.7 0.0-2.0 % Neutrophils # (Auto) 6.3 1.6-8.6 10 ^3/uL Lymphocytes # (Auto) 0.9 0.4-5.4 10 ^3/uL Monocytes # (Auto) 0.7 0-1.3 10 ^3/uL Eosinophils # (Auto) 0.1 0-0.8 10 ^3/uL Basophils # (Auto) 0.1 0-0.2 10 ^3/uL Nucleated Red Blood Cells 0.0 % Sodium Level 132 L 136-145 mmol/L Potassium Level 4.9 3.5-5.1 mmol/L Chloride Level 92 L 98-107 mmol/L Carbon Dioxide Level 26 20-31 mmol/L Anion Gap 14 5-15 Blood Urea Nitrogen 58 H 9-23 mg/dL Creatinine 11.64 #*H 0.700-1.30 mg/dL Glomerular Filtration Rate Calc 4 >90 mL/min BUN/Creatinine Ratio 5.0 L 10.0-20.0 Serum Glucose 133 H 74-106 mg/dL Calcium Level 10.5 H 8.7-10.4 mg/dL Current Medications Medications (Trade) Dose Ordered Sig/Edson Route Start Time Stop Time Status Last Admin Piperacillin Sod/ Tazobactam Sod 100 ml @ 100 mls/hr ONCE ONCE IV 12/08/24 06:30 12/08/24 07:29 DC 12/08/24 07:01 Furosemide (Lasix Injection) 40 mg ONCE ONCE IV 12/08/24 06:30 12/08/24 06:31 DC 12/08/24 06:48 Sodium Chloride 500 ml @ 500 mls/hr Q1H ONCE IV 12/08/24 06:30 12/08/24 07:29 DC 12/08/24 06:55 Vancomycin HCl 200 ml @ 200 mls/hr ONCE ONCE IV 12/08/24 07:00 12/08/24 07:59 DC 12/08/24 08:15 [place] [address] Ph: [phone] DIAGNOSTIC IMAGING Diagnostic Imaging Report : [id number] Signed PATIENT: MAXIMUS MAR JR ACCT: [id number] UNIT: [id number] : 1950 LOC: ER ROOM / BED: / AGE / SEX: 74 / M ADM STATUS: REG ER SERVICE 0545 ORDERING PHYSICIAN: KANG CHAVIRA MD PROCEDURE(s): CXRP - CHEST PORTABLE REASON: chest pain ORDER NUMBER(s): [id number], ACCESSION NUMBER(s): [id number] INDICATION: chest pain TECHNIQUE: Frontal view of the chest. COMPARISON: XY CHEST PORTABLE on DOS: 12/01/24, XY CHEST PORTABLE on DOS: 12/01/24, XY CHEST PORTABLE on DOS: 11/05/24, XY CHEST PORTABLE on DOS: 11/04/24, XY CHEST PORTABLE on DOS: 11/04/24, XY CHEST PORTABLE on DOS: 12/01/24 FINDINGS: Small left pleural effusion, left basilar opacity. The heart and mediastinal contours are grossly unremarkable. . . The bony structures of the chest are intact without fracture. IMPRESSION: 1. Small left pleural effusion, left basilar opacity. No Pneumothorax ATED BY: DORY ADAMS MD DICTATED DATE/TIME: 12/08/24656 SIGNED BY: DORY ADAMS MD SIGNED DATE/TIME: 12/08/24656 CC: Patient alert. Complaining of shortness a breath. Was recently here for the same condition. Tachycardia. Chest x-ray reveals pleural effusion. Possible pneumonitis. Sepsis protocol. Had to hold on fluids because of his CHF. Was given Lasix. Reviewed his previous visit. EKG does show old changes. Explained to the family. Continue monitoring. Time of 1ST Reevaluation: 06:50 Reevaluation 1ST: Unchanged Patient Education/Counseling: Diagnosis, Treatment, Prognosis Family Education/Counseling: Diagnosis, Treatment, Prognosis Additional Information The following tests were ordered, and results were reviewed by me: BMP, CBC, TROP -x3, XY CHEST, EKG -x3, BLOOD CULTURE, LA W/ REFLEX, Additional Information was gathered from interviewing the following independent historians: EMS, I reviewed and agreed with the following test results read by other providers: XY CHEST I discussed treatment and results with medical personnel and: patient, Comprehensive systems review obtained and negative except for what is stated in the HPI. Sepsis Sepsis Reasesment Focused Exam Orders: Laboratory Tests 12/08/24 06:41: Lactic Acid Level 2.2 Departure 1 Departure Time of Disposition: 07:09 Impression: Primary Impression: CHF (congestive heart failure) Qualified Codes: I50.43 - Acute on chronic combined systolic (congestive) and diastolic (congestive) heart failure Additional Impressions: NSTEMI (non-ST elevated myocardial infarction) Uncontrolled diabetes mellitus Qualified Codes: E13.65 - Other specified diabetes mellitus with hyperglycemia Sepsis Qualified Codes: A41.9 - Sepsis, unspecified organism Disposition: 09 ADMITTED INPATIENT Admit to: Med Surg Condition: Guarded Critical Care Note Critical Care Time?: Yes (90 min-critical care time only) Critical care comment: Acute respiratory failure continue monitoring Stability Stability form required: No Heart Score Heart Score: Heart Score Response (Comments) Value History Slightly Suspicious 0 EKG Normal 0 Age >65 2 Risk Factors >3 or Hx ASHD 2 Troponin 1-2 x's Normal limit 1 Total 5 I personally scribed for BRITTNEY YEUNG MD ([email or web address]) on 12/08/24 at 06:47. Electronically submitted by Marlene Moralez ([email or web address]). I personally scribed for BRITTNEY YEUNG MD ([email or web address]) on 12/08/24 at 07:02. Electronically submitted by Marlene Moralez ([email or web address]). I personally scribed for BRITTNEY YEUNG MD ([email or web address]) on 12/08/24 at 07:03. Electronically submitted by Marlene Moralez ([email or web address]). BRITTNEY YEUNG MD Dec 08, 2024 06:47
[2024-12-08] MEDS: FUROSEMIDE 40 MG/4 ML VIAL IV ONE (06:48)
[2024-12-08] MEDS: SODIUM CHLORIDE 0.9% 500 ML IV ONE (06:55)
--- NOTE | 2024-12-08 07:00 | DVH ---
INDICATION: chest pain TECHNIQUE: Frontal view of the chest. COMPARISON: XY CHEST PORTABLE on DOS: 12/01/24, XY CHEST PORTABLE on DOS: 12/01/24, XY CHEST PORTABLE o n DOS: 11/05/24, XY CHEST PORTABLE on DOS: 11/04/24, XY CHEST PORTABLE on DOS: 11/04/24, XY CHEST PORTABL E on DOS: 12/01/24 FINDINGS: Small left pleural effusion, left basilar opacity. The heart and mediastinal contours are grossly unr emarkable. . . The bony structures of the chest are intact without fracture. IMPRESSION: 1. Small left pleural effusion, left basilar opacity. No Pneumothorax
[2024-12-08] MEDS: PIPERACILLIN-TAZOB 3.375GM 100 ML IV ONE (07:01)
[2024-12-08 07:38] LABS: Lactic Acid w/Reflex 2.2 mmol/L (0.4-2.0)
[2024-12-08] MEDS: VANCOMYCIN 1GM/200ML PM 200 ML IV ONE (08:15)
[2024-12-08] MEDS ORDERED: DOCUSATE SOD 100 MG CAP PO PRN (09:15)
[2024-12-08] MEDS ORDERED: MORPHINE SULFATE INJ 2 MG/ml SYRG IV PRN (09:15)
[2024-12-08] MEDS ORDERED: ONDANSETRON HCL 4 MG/2 ML VIAL IV PRN (09:15)
[2024-12-08] MEDS ORDERED: HYDROcodone-ACET 5/325MG TAB PO PRN (09:15)
[2024-12-08] MEDS ORDERED: NITROGLYCERIN 0.4 MG SL TAB SL PRN (09:15)
[2024-12-08] MEDS ORDERED: ACETAMINOPHEN 325 MG TAB PO PRN (09:15)
--- NOTE | 2024-12-08 09:27 | DVHHP2 ---
History of Present Illness Reason for Visit: Shortness of breath, chest pain History of Present Illness Bernard Mccauley Jr is a 74-year-old male with past medical history of MD, CHF, COPD, hypertension, hyperlipidemia, diabetes, CABG, cardiac stents, home oxygen use, ESRD on HD, and AICD who was brought to the hospital for chest pain and shortness of breath. Patient states he began feeling short of breath on Saturday. It worsened Saturday evening, then this morning he woke up struggling to breath and was using accessory muscles, prompting family to call EMS. Patient also states he had chest pain at that time. EMS gave him a sublingual nitro and his chest pain resolved. On assessment, he states his breathing has improved since being here. and daughter are at the bedside at time of assessment. states he usually uses oxygen at 2L/NC, she did turn it up to 2.5L/NC with no improvement. Family also states the patient was recently admitted in November for fluid on his lungs. He did have a thoracentesis completed and was discharged home on 12/03/2024. Patient states he is compliant with his dialysis, and they usually take 2L off. After patient was seen and admitted. He began having difficulty breathing, with increased work of breathing and accessory muscle use. Patient was intubated by the ER physician. Cardiovascular: CAD, CHF, HTN, MD, hyperipidemia, Other (CABG, AICD, PTCA) Pulmonary: COPD, Other (Home oxygen at 2L) Renal/: Chronic renal failure (HD-T,TH,SAT) Endocrine: Diabetes Past Surgical History: CABG (January 2024) Smoke: No Drugs: None Lives: with Family Domestic Violence: Neg Review of Systems Constitutional: No: Fever, Chills, Sweats, Weakness, Malaise, Other Eyes: No: Pain, Vision change, Conjunctivae inflammation, Eyelid inflammation, Other, Redness ENT: No: Ear pain, Ear discharge, Nose pain, Nose discharge, Nose congestion, Mouth pain, Mouth swelling, Throat pain, Throat swelling, Other Respiratory: Shortness of breath, SOB with excertion; No: Cough, Dry, Wheezing, Hemoptysis, Pleuritic Pain, Sputum, Wheezing, Other Cardiovascular: Chest Pain; No: Palpitations, Orthopnea, Paroxysmal Noc. Dyspnea, Edema, Lt Headedness, Other Gastrointestinal: No: Nausea, Vomiting, Abdominal Pain, Diarrhea, Constipation, Melena, Hematochezia, Other Genitourinary: No Dysuria, No Frequency, No Incontinence, No Hematuria, No Retention, No Other Musculoskeletal: No: other, neck pain, shoulder pain, arm pain, back pain, hand pain, leg pain, foot pain Skin: No: Rash, Lesions, Jaundice, Bruising, Other Neurological: No: Weakness, Numbness, Incoordination, Change in speech, Confusion, Seizures, Other Allergies: Coded Allergies: NO KNOWN ALLERGIES (Unverified , 01/05/24) Medications Current Medications Medications Dose Ordered Sig/Edson Route Start Time Stop Time Status Last Admin Dose Admin Sodium Chloride 10 ml Q8HR IV 12/08/24 14:00 Acetaminophen/ Hydrocodone Bitart 1 tab Q4HP PRN PO 12/08/24 09:15 Ondansetron HCl 4 mg Q4HP PRN IV 12/08/24 09:15 Docusate Sodium 100 mg BIDPRN PRN PO 12/08/24 09:15 Acetaminophen 650 mg Q6HP PRN PO 12/08/24 09:15 Nitroglycerin 0.4 mg Q5MINP PRN SL 12/08/24 09:15 Morphine Sulfate 2 mg Q30M PRN IV 12/08/24 09:15 UNV Morphine Sulfate 2 mg Q30M PRN IV 12/08/24 09:30 Exam Vital Signs Vital Signs Date Time Temp Pulse Resp B/P (MAP) Pulse Ox O2 Delivery O2 Flow Rate FiO2 12/08/24 08:00 100 12/08/24 06:48 153/88 12/08/24 06:06 37 97 Nasal Cannula* 6 44 12/08/24 05:43 97.9 97.9 General Appearance: Alert, Oriented X3, Cooperative, moderate distress HEENT: Atraumatic, PERRLA Respiratory: Other (Diminished breath sounds, worse on left) Cardiovascular: Normal S1, Normal S2, Other (ST) Abdominal: Normal bowel sounds, Soft, No tenderness Extremities: No clubbing, No cyanosis, Other (weak pedal pulses) Skin: No rashes, No breakdown Neuro: Normal speech, Other (generalized weakness) Psych/Mental Status: Mental status NL, Mood NL Labs/Xrays Labs Test 12/08/24 09:10 12/08/24 06:10 Range/Units White Blood Count 8.0 # 4.4-10.8 10^3/uL Red Blood Count 3.11 L 4.5-5.90 10^6/uL Hemoglobin 10.6 L 13.5-17.5 g/dL Hematocrit 31.2 L 41.0-53.0 % Mean Corpuscular Volume 100.5 H 80.0-100.0 fL Mean Corpuscular Hemoglobin 34.3 H 28.0-32.0 pg Mean Corpuscular Hemoglobin Concent 34.1 32.0-36.0 g/dL Red Cell Distribution Width 14.3 11.8-14.3 % Platelet Count 222 140-450 10^3/uL Mean Platelet Volume 7.0 6.9-10.8 fL Neutrophils (%) (Auto) 78.5 37.0-80.0 % Lymphocytes (%) (Auto) 10.7 10.0-50.0 % Monocytes (%) (Auto) 8.9 0.0-12.0 % Eosinophils (%) (Auto) 1.2 0.0-7.0 % Basophils (%) (Auto) 0.7 0.0-2.0 % Neutrophils # (Auto) 6.3 1.6-8.6 10 ^3/uL Lymphocytes # (Auto) 0.9 0.4-5.4 10 ^3/uL Monocytes # (Auto) 0.7 0-1.3 10 ^3/uL Eosinophils # (Auto) 0.1 0-0.8 10 ^3/uL Basophils # (Auto) 0.1 0-0.2 10 ^3/uL Nucleated Red Blood Cells 0.0 % Sodium Level 132 L 136-145 mmol/L Potassium Level 4.9 3.5-5.1 mmol/L Chloride Level 92 L 98-107 mmol/L Carbon Dioxide Level 26 20-31 mmol/L Anion Gap 14 5-15 Blood Urea Nitrogen 58 H 9-23 mg/dL Creatinine 11.64 #*H 0.700-1.30 mg/dL Glomerular Filtration Rate Calc 4 >90 mL/min BUN/Creatinine Ratio 5.0 L 10.0-20.0 Serum Glucose 133 H 74-106 mg/dL Calcium Level 10.5 H 8.7-10.4 mg/dL INDICATION: chest pain FINDINGS: Small left pleural effusion, left basilar opacity. The heart and mediastinal contours are grossly unremarkable. . . The bony structures of the chest are intact without fracture. IMPRESSION: 1. Small left pleural effusion, left basilar opacity. 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 Procedure Category Date Status Time Admit ADMIT 12/08/24 Transmitted 09:01 Code Status CODE 12/08/24 Transmitted 09:01 Renal DIET 12/08/24 Transmitted Standard(2gna,3gk,Lopho) Breakfast Sodium Chloride Lock PHA 12/08/24 In Process (Saline Lock Ns) 14:00 Hydrocodone-Acet PHA 12/08/24 In Process 5/325mg Tab ([place]er 09:15 Ondansetron Hcl PHA 12/08/24 In Process (Zofran) 09:15 Docusate Sodium PHA 12/08/24 In Process Capsule (Colace 09:15 Complete Blood Count LAB 12/09/24 Verified 04:00 Comprehensive LAB 12/09/24 Verified Metabolic Panel 04:00 Condition: Critical RADHA 12/08/24 In Process 09:01 Acetaminophen Tablet PHA 12/08/24 In Process (Tylenol Tablet) 09:15 Nitroglycerin PHA 12/08/24 In Process Sublingual (Ntrostat 09:15 Stat Ekg For Chest RADHA 12/08/24 In Process Pain 09:01 Notify Md Of Changes RADHA 12/08/24 In Process From Base 09:01 Maintenance Helper For RADHA 12/08/24 In Process 24 Hours 09:01 Emergency Dysrhythmia RADHA 12/08/24 In Process Protocol 09:01 Rhythm Strips Once RADHA 12/08/24 In Process Every Shift 09:01 Oxygen By Nasal RT 12/08/24 Transmitted Cannula 09:01 * Radiologist Consult CONS 12/08/24 Transmitted 09:01 *Dr. Mariel Bae CONS 12/08/24 Transmitted Eleni 09:01 * Cardiology Consult CONS 12/08/24 Transmitted 09:01 Morphine Sulfate PHA 12/08/24 In Process Injection 09:30 Ipratropium Medneb PHA 12/08/24 Verified (Atrovent Medneb) 12:00 Albuterol Medneb PHA 12/08/24 Verified (Ventolin Medneb) 12:00 Clopidogrel Bisulfate PHA 12/08/24 Verified (Plavix) 10:00 Ranolazine (Ranexa Er) PHA 12/08/24 Verified 10:00 Sacubitril-Valsartan PHA 12/08/24 Verified (Entresto 24-26 Mg 10:00 (Nf) Aspirin (Aspirin PHA 12/08/24 Verified Low Dose) 10:00 (Nf) Atorvastatin PHA 12/08/24 Verified Calcium 10:00 (Nf) Carvedilol PHA 12/08/24 Verified 10:00 (Nf) Isosorbide PHA 12/08/24 Verified Mononitrate 10:00 (Nf) Magnesium Oxide PHA 12/08/24 Verified 10:00 (Nf) Oxycodone Hcl PHA 12/08/24 Verified (Oxycodone Hydrochlor 12:00 (Nf) Sevelamer PHA 12/08/24 Verified Carbonate (Renvela) 14:00 Date of Service: Dec 08, 2024 Billing Provider: LADONNA LENTZ Common Visit Codes: [id number] INP/OBS CARE (HIGH) LADONNA LENTZ Dec 08, 2024 09:27
[2024-12-08] MEDS ORDERED: MORPHINE SULFATE 4 MG/ML SYR/VIAL IV PRN (09:30)
[2024-12-08] MEDS ORDERED: PATIENTS OWN MEDICATION (Aspirin (Aspirin Low Dose) 1 TAB) PO SCH (10:00)
[2024-12-08] MEDS: CLOPIDOGREL BISULFATE 75 MG TAB PO SCH (10:00)
[2024-12-08] MEDS ORDERED: PATIENTS OWN MEDICATION (Magnesium Oxide 1 TAB) PO SCH (10:00)
[2024-12-08] MEDS ORDERED: PATIENTS OWN MEDICATION (Carvedilol 1 TAB) PO SCH (10:00)
[2024-12-08] MEDS ORDERED: PATIENTS OWN MEDICATION (Atorvastatin Calcium 1 TAB) PO SCH (10:00)
[2024-12-08] MEDS: RANOLAZINE ER 500 MG TAB PO SCH (10:00)
[2024-12-08] MEDS: SACUBITRIL-VALSARTAN 24mg/26mg TAB PO SCH (10:00)
[2024-12-08] MEDS ORDERED: PATIENTS OWN MEDICATION (Isosorbide Mononitrate (Isosorbide Mononitrate Er) 1 TAB) PO SCH (10:00)
[2024-12-08] MEDS: ETOMIDATE (2MG/ML) 20ML VIAL IV ONE ×2 (10:06→10:23)
[2024-12-08] MEDS: ROCURONIUM 10MG/ML 10ML VIAL IV ONE ×2 (10:07→10:24)
[2024-12-08] MEDS: MIDAZOLAM DRIP 50 mg/50mL 50 ML IV SCH (10:16)
[2024-12-08] MEDS: MIDAZOLAM DRIP 50 mg/50mL 50 ML IV ONE (10:25)
--- NOTE | 2024-12-08 11:17 | DVHINCON2 ---
Date Seen: Dec 08, 2024 Referring Physician CORTNEY Kendall Reason for Consultation Elevated troponin levels History of Present Illness This is a 74-year-old man who presented to the emergency room via EMS with a chief complaint of chest pain/SOB. At time of assessment, the patient was found endotracheally intubated with 100% FiO2 and chemically sedated. Information obtained from records and primary RN at bedside. It appears the patient presented with complaints of chest pain and shortness of breath worsening for the past three days. Given worsening respiratory status during ER admission including tachypnea, the patient was endotracheally intubated for airway protection. He underwent multiple 12 lead electrocardiograms x2 revealing a sinus tachycardia rhythm with PVCs up to 121 bpm. Serial troponin levels are trending up with latest at 278 ng/L. Of note, the patient was recently discharged from this facility on 12/03/24. At that time he underwent hemodialysis as well as a left-sided thoracentesis. Significant medical history includes severe coronary artery disease status post triple-vessel CABG (01/2024) status post successful PTCA and stenting with shockwave lithotripsy of the LAD x 1 MENDEZ on 09/01/2024 (on ASA/Plavix), ischemic cardiomyopathy with EF 35-40%, sick sinus syndrome status post right-sided single-lead AICD (Biotronik, 11/04/2024), hypertension, dyslipidemia, COPD O2 dependence, end-stage renal disease on hemodialysis T--Sat, type 2 diabetes mellitus, previous tobacco use, and benign prostatic hyperplasia. Past Medical History Past medical history reviewed. No other significant than mentioned above. Past Surgical History PTCA and stenting with shockwave lithotripsy of the LAD x 1 MENDEZ, 09/01/2024 Triple-vessel CABG at [facility], 01/2024 Hemodialysis access TURP Family History: FH: cancer G8 MOTHER FH: heart disease G8 FATHER Family History Family history reviewed. Social History Per previous records, denied the use of illicit drugs, alcohol, or tobacco use. Allergies: Coded Allergies: NO KNOWN ALLERGIES (Unverified , 01/05/24) Home Meds Reported Medications Magnesium Oxide (Magnesium Oxide) 400 Mg Tab, 1 TAB PO DAILY for 90 Days, #90 10/29/24 Meloxicam (Meloxicam) 15 Mg Tab, 1 TAB PO DAILY for 30 Days, #30 10/29/24 Sacubitril-Valsartan (Entresto 24-26 mg) 1 Tab Tab, 1 TAB PO BID for 30 Days, #60 10/29/24 Nitroglycerin (Nitrostat) 0.4 Mg Sub, 1 TAB PO UD for 33 Days, #100 10/29/24 Atorvastatin Calcium (ATORVASTATIN CALCIUM) 40 Mg Tab, 1 TAB PO DAILY for 90 Days, #90 10/29/24 Isosorbide Mononitrate (Isosorbide Mononitrate Er) 30 Mg Tab, 1 TAB PO DAILY for 90 Days, #90 10/29/24 Clopidogrel Bisulfate (CLOPIDOGREL) 75 Mg Tab, 1 TAB PO DAILY for 90 Days, #90 10/29/24 Ranolazine (Ranolazine ER) 500 Mg Tab, 1 TAB PO BID for 30 Days, #60 10/29/24 Furosemide (Furosemide) 40 Mg Tab, 1 TAB PO DAILY for 90 Days, #90 01/07/24 Ergocalciferol (Vitamin D) 50,000 Unit Cap, 1 CAP PO QWEEKLY 01/07/24 Omeprazole (Omeprazole Dr) 40 Mg Cap, 1 CAP PO DAILY for 90 Days, #90 01/07/24 Aspirin (Aspirin Low Dose) 81 Mg Chw, 1 TAB PO DAILY 01/07/24 Sevelamer Carbonate (Renvela) 800 Mg Tab, 2 TAB PO TID 01/07/24 Carvedilol (Carvedilol) 25 Mg Tab, 1 TAB PO BID for 90 Days, #180 01/07/24 Oxycodone HCl (Oxycodone Hydrochloride) 15 Mg Tab, 1 TAB PO QID for 30 Days, #120 01/07/24 Discontinued Reported Medications Nifedipine (Nifedipine Er) 90 Mg Tab, 1 TAB PO DAILY for 30 Days, #30 10/29/24 Discontinued Scripts Levofloxacin Hemihydrate (LEVOFLOXACIN) 750 Mg Tab, 1 TAB PO DAILY, #5 TAB Prov:NIGHAT SOLANO 12/03/24 Doxycycline Hyclate (DOXYCYCLINE HYCLATE) 100 Mg Tab, 1 TAB PO BID for 7 Days, #14 TAB Prov:CRAIG NAZARIO MD 11/05/24 Hydrocodone-Acetaminophen (Hydrocodone/Acetaminophen 5-325 mg) 1 Tab Tab, 1 TAB PO TIDP PRN for 6 Days, #18 TAB Prov:CRAIG NAZARIO MD 11/05/24 Home Meds Home medications reviewed. Current Medications Current Medications Medications (Trade) Dose Ordered Sig/Edson Route PRN Reason Start Time Stop Time Status Last Admin Sodium Chloride (Saline Lock Ns) 10 ml Q8HR IV 12/08/24 14:00 Acetaminophen/ Hydrocodone Bitart ([place] 5/325MG Tab) 1 tab Q4HP PRN PO MODERATE PAIN (4-6 PAIN SCALE) 12/08/24 09:15 Ondansetron HCl (Zofran) 4 mg Q4HP PRN IV NAUSEA / VOMITING 12/08/24 09:15 Docusate Sodium (Colace Capsule) 100 mg BIDPRN PRN PO FOR CONSTIPATION 12/08/24 09:15 Acetaminophen (Tylenol Tablet) 650 mg Q6HP PRN PO PAIN SCALE 1-3 OR TEMP>100.4 12/08/24 09:15 Nitroglycerin (Ntrostat Sublingual) 0.4 mg Q5MINP PRN SL FOR CHEST PAIN 12/08/24 09:15 Morphine Sulfate 2 mg Q30M PRN IV FOR CHEST PAIN 12/08/24 09:15 UNV Morphine Sulfate 2 mg Q30M PRN IV FOR CHEST PAIN 12/08/24 09:30 Ipratropium [place] (Atrovent Medneb) 0.5 mg Q6HWA NEB 12/08/24 12:00 Albuterol (Ventolin Medneb) 2.5 mg Q6HWA NEB 12/08/24 12:00 Clopidogrel Bisulfate (Plavix) 75 mg DAILY PO 12/08/24 10:00 Ranolazine (Ranexa ER) 500 mg BID PO 12/08/24 10:00 Sacubitril/ Valsartan (Entresto 24-26 Mg tab) 1 tab BID PO 12/08/24 10:00 Patient Own Medication 1 tab DAILY PO 12/08/24 10:00 UNV Patient Own Medication 1 tab DAILY PO 12/08/24 10:00 UNV Patient Own Medication 1 tab BID PO 12/08/24 10:00 UNV Patient Own Medication 1 tab DAILY PO 12/08/24 10:00 UNV Patient Own Medication 1 tab DAILY PO 12/08/24 10:00 UNV Patient Own Medication 1 tab QID PO 12/08/24 12:00 UNV Patient Own Medication 2 tab TID PO 12/08/24 14:00 UNV Methylprednisolone Sodium Succinate (Solu Medrol) 40 mg BID IV 12/08/24 10:00 Furosemide (Lasix Injection) 40 mg DAILY IV 12/08/24 10:00 Midazolam HCl 50 ml @ 1 mls/hr Q24H IV 12/08/24 10:15 Aspirin (Ecotrin Enteric Coated Tablet) 81 mg DAILY PO 12/09/24 10:00 Atorvastatin Calcium (Lipitor) 40 mg HS PO 12/08/24 22:00 Carvedilol (Coreg Tablet) 25 mg BID PO 12/08/24 22:00 Isosorbide Mononitrate (Imdur Er Tablet) 30 mg DAILY PO 12/09/24 10:00 Magnesium Oxide (Mag-Ox Tablet) 400 mg DAILY PO 12/09/24 10:00 Oxycodone HCl 15 mg QID PO 12/08/24 12:00 Future Hold Calcium Acetate (Phoslo Capsule) 1,334 mg TIDWM PO 12/08/24 12:00 12/08/24 10:52 DC Review of Systems Constitutional: No symptom reported Ears, Nose, & Throat: No symptom reported Eyes: No symptom reported Neurological: No symptoms reported Pulmonary/Respiratory: No symptom reported Cardiovascular: No symptom reported Gastrointestinal: No symptom reported Genitourinary: No symptom reported Musculoskeletal: No symptom reported Skin: No symptom reported Psychiatric: No symptom reported Endocrine: No symptom reported Hemotologic/Lymphatic: No symptom reported Vital Signs Vital Signs Date Time Temp Pulse Resp B/P (MAP) Pulse Ox O2 Delivery O2 Flow Rate FiO2 12/08/24 10:07 183/102 12/08/24 09:20 113 35 97 12/08/24 07:20 97.8 97.8 12/08/24 07:20 Nasal Cannula* 6 44 Physical Exam General Appearance: Cooperative. Well developed. Well nourished. In no acute distress Head Exam: Normal inspection Neck Exam: Normal inspection. Non-tender. Normal alignment Pulmonary/Respiratory: Chest non-tender. Clear bilateral breath sounds Cardiovascular/Chest: Regular rate and rhythm. S1, S2. No murmurs. No JVD. Peripheral Pulses: 2+ Radial (R). 2+ Radial (L). 2+ Pedal (R). 2+ Pedal (L) Abdominal Exam: Normal bowel sounds. Soft. Nontender. No hepatospenomegaly. No masses Ankle Exam: Negative ankle edema Lower extremities: Negative lower extremity edema Neuro/Mental Status: A&O x4. Coherent Thoughts/Psych: Normal thought pattern. Appropriate mood and affect. Good judgement and insight Appearance: In no acute distress Skin Exam: Normal inspection. Normal color. Warm. Dry Labs/Diagnostic Data Labs Test 12/08/24 09:10 12/08/24 06:10 Range/Units Lactic Acid Level 1.5 0.4-2.0 mmol/L Troponin I High Sensitivity 278 *H </=54 ng/L White Blood Count 8.0 # 4.4-10.8 10^3/uL Red Blood Count 3.11 L 4.5-5.90 10^6/uL Hemoglobin 10.6 L 13.5-17.5 g/dL Hematocrit 31.2 L 41.0-53.0 % Mean Corpuscular Volume 100.5 H 80.0-100.0 fL Mean Corpuscular Hemoglobin 34.3 H 28.0-32.0 pg Mean Corpuscular Hemoglobin Concent 34.1 32.0-36.0 g/dL Red Cell Distribution Width 14.3 11.8-14.3 % Platelet Count 222 140-450 10^3/uL Mean Platelet Volume 7.0 6.9-10.8 fL Neutrophils (%) (Auto) 78.5 37.0-80.0 % Lymphocytes (%) (Auto) 10.7 10.0-50.0 % Monocytes (%) (Auto) 8.9 0.0-12.0 % Eosinophils (%) (Auto) 1.2 0.0-7.0 % Basophils (%) (Auto) 0.7 0.0-2.0 % Neutrophils # (Auto) 6.3 1.6-8.6 10 ^3/uL Lymphocytes # (Auto) 0.9 0.4-5.4 10 ^3/uL Monocytes # (Auto) 0.7 0-1.3 10 ^3/uL Eosinophils # (Auto) 0.1 0-0.8 10 ^3/uL Basophils # (Auto) 0.1 0-0.2 10 ^3/uL Nucleated Red Blood Cells 0.0 % Sodium Level 132 L 136-145 mmol/L Potassium Level 4.9 3.5-5.1 mmol/L Chloride Level 92 L 98-107 mmol/L Carbon Dioxide Level 26 20-31 mmol/L Anion Gap 14 5-15 Blood Urea Nitrogen 58 H 9-23 mg/dL Creatinine 11.64 #*H 0.700-1.30 mg/dL Glomerular Filtration Rate Calc 4 >90 mL/min BUN/Creatinine Ratio 5.0 L 10.0-20.0 Serum Glucose 133 H 74-106 mg/dL Calcium Level 10.5 H 8.7-10.4 mg/dL Assessment Acute on chronic decompensated HFrEF, NYHA class IV Acute on chronic hypoxic respiratory failure NSTEMI, likely type II secondary to above Severe coronary artery disease with triple-vessel CABG s/p PCI of the LAD x 1DES (on ASA and Plavix) Presence of single-lead right-sided AICD (Biotronik, 11/04/2024) Dyslipidemia COPD with oxygen dependence End-stage renal disease on hemodialysis (/) Type 2 diabetes mellitus Anemia in chronic disease History of tobacco use Plan/Recommendation (Dr. Cardona) * Transthoracic echocardiogram revealed EF 35-40% with global hypokinesis (10/30/24) * Initiate guideline directed medical therapy for CHF as renal function and BP permits (BB and Entresto) * Mineralcorticoid and SGLP2 inhibitor contraindicated, ESRD * Dual-antiplatelet therapy and lipid-lowering agent * Radiology consultation for possible thoracentesis. Chest US pending * Nephrology recommendations for HD () * Follow-up with Dr. Cardona as scheduled on 02/11/2025 at 1130 There is no further cardiac work-up indicated at this time. Kindly call with any questions or concerns. Thank you for allowing us to care for this patient. Critical care time: 40 min. This medical document was created using an electronic medical record system with voice recognition software and computerized dictation system. Although this document has been carefully reviewed, there might still be some phonetic and typographical errors. Occasional wrong-word or ``sound-alike substitutions may have occurred due to the inherent limitations of voice recognition software. These areas are purely typographical due to imperfections of the software programs and do not reflect any compromise in the patient's medical care. Please read the chart carefully and recognize, using context, where these substitutions have occurred. Plan discussed with: Other NYHA Physical activity limitations: Class4(Severe)discomfort (w any activit,symptoms at rest) Date of Service: Dec 08, 2024 Billing Provider: MARYANNE ADAMS Cardiology Common Codes: [id number] CARE 30-74 MIN MARYANNE ADAMS Dec 08, 2024 11:17
[2024-12-08] MEDS: methylPREDNISolone SOD SUCC 40 MG/ML VL IV SCH (11:26)
[2024-12-08] MEDS: FUROSEMIDE 40 MG/4 ML VIAL IV SCH (11:27)
[2024-12-08] MEDS ORDERED: PATIENTS OWN MEDICATION (Oxycodone HCl (Oxycodone Hydrochloride) 1 TAB) PO SCH (12:00)
[2024-12-08] MEDS ORDERED: oxyCODONE HCL 5MG TAB PO SCH (12:00)
[2024-12-08] MEDS ORDERED: CALCIUM ACETATE 667 MG CAP PO SCH (12:00)
[2024-12-08 12:08] LABS: Base Excess 0.8 mmol/L (-2.0-3.0)
[2024-12-08] MEDS ORDERED: DEXTROSE (50%) 50ML SYRG IV PRN (12:15)
[2024-12-08 12:42] LABS: Urine Bacteria FEW /hpf (None Seen); Urine Blood 1+ /uL (Negative); Urine Clarity Turbid (Clear); Urine Color Light-Yellow (Yellow); Urine Protein, UAD 2+ (Negative); Urine Specific Gravity 1.013 (1.001-1.035); Urine Squamous Epithelial Cell None Seen /hpf (<5); Urine Urobilinogen Normal (Negative); Urine WBC 6 /HPF (0-3)
--- NOTE | 2024-12-08 12:56 | DVH ---
CHEST RADIOGRAPH Indication: INTUBATION AND CENTRAL LINE PLACEMENT Technique: Frontal view of the chest. Comparison: XY CHEST PORTABLE on DOS: 12/08/24, XY CHEST PORTABLE on DOS: 12/01/24, XY CHEST PORTABLE on DOS: 12/01/24, XY CHEST PORTABLE on DOS: 11/05/24, XY CHEST PORTABLE on DOS: 11/04/24, XY CHEST PORTABLE on DOS: 12/08/24 FINDINGS: Small left pleural effusion, left basilar opacity. The heart and mediastinal contours are grossly unr emarkable . The bony structures of the chest are intact without fracture. Central venous catheter not seen. Nasogastric tube tip in the stomach. Endotracheal tube 4 cm from t he che. IMPRESSION: Central venous catheter not seen. Nasogastric tube tip in the stomach. Endotracheal tube 4 cm from t he che.
--- NOTE | 2024-12-08 12:58 | DVH ---
Bilateral Chest Sonogram Date: 12/08/2024 10:40 AM Clinical history: FLUID CHECK FOR POSSIBLE THORACENTESIS Findings: Limited sonographic evaluation of the right and left chest was performed to localize and rico fluid f or thoracentesis. Septated complex appearing moderate left pleural effusion. Trace right pleural effusion. IMPRESSION: Septated complex appearing moderate left pleural effusion. Trace right pleural effusion. END IMPRESSION:
--- NOTE | 2024-12-08 13:08 | DVH ---
BILATERAL Lower Extremity Arterial Duplex Date: 12/08/2024 11:31 AM Clinical History: Weak pedal pulse rule out PAD Comparison: None Technique: Duplex Doppler evaluation including color Doppler and spectral/pulsed waveform analysis of the lower extremity arteries was performed. Finding: RIGHT: Peak systolic velocities are as follows: LIABILITY ANALYST 72 cm/s Deep femoral 61 cm/s SFA proximal 62 cm/s SFA mid-portion 44 cm/s SFA distal 57 cm/s Popliteal 27 cm/s Posterior tibial 43 cm/s Dorsalis pedis 16 cm/s The waveforms are monophasic in the right dorsalis pedis artery. LEFT: Peak systolic velocities are as follows: LIABILITY ANALYST 55 cm/s Deep femoral 74 cm/s SFA proximal 54 cm/s SFA mid-portion 42 cm/s SFA distal 34 cm/s Popliteal 21 cm/s Posterior tibial 11 cm/s Dorsalis pedis 18 cm/s The waveforms are monophasic in the left dorsalis pedis artery.. REFERENCE VALUES, [facility]) vascular Imaging Lab Criteria: Peak systolic velocity ranges (in cm/sec) are as follows: <150 cm/s - <20 % stenosis 150-200 cm/s - 20-49% stenosis 200-300 cm/s - 50-75% stenosis >300 cm/s -> 75% stenosis IMPRESSION: Peripheral vascular disease in the bilateral dorsalis pedis arteries as evidence by monophasic wavefo cristina. No significant focal stenosis is identified.
[2024-12-08] MEDS: ALBUTEROL SULF 2.5 MG/0.5ML(0.5%) NEB SOLN NEB SCH (13:18)
[2024-12-08] MEDS: IPRATROPIUM BROM 0.5 MG/2.5ML INH SOL NEB SCH (13:19)
[2024-12-08] MEDS: SODIUM CHLOR 0.9% PF (SALINE LOCK) 10ML VIAL/SYR IV SCH (14:00)
--- NOTE | 2024-12-08 14:16 | DVHINCON2 ---
DATE OF CONSULTATION: 12/08/2024 CONSULTING PHYSICIAN: Dr. Lucas. REASON FOR CONSULTATION: Management of dialysis. HISTORY OF PRESENT ILLNESS: The patient is a 74-year-old -[place] gentleman who is well known to me. He has been admitted to this hospital twice in the last month. He has severe coronary artery disease and recently had to have placement of some kind of pacemaker. Recently, he had an angioplasty and a year ago had coronary artery bypass surgery. Essentially, he has severe coronary atherosclerosis in the setting of . He came back to the Emergency Room yesterday complaining of chest pain and shortness of breath. Apparently, he was intubated for airway protection. I am being consulted to handle his dialysis treatment. REVIEW OF SYSTEMS: Not possible due to his current condition. PAST MEDICAL HISTORY: Please review the multiple hospitalization consults in this hospital recently. PHYSICAL EXAMINATION: VITAL SIGNS: Blood pressure is 129/73, heart rate 90, respirations 16, temperature 98.2. GENERAL: The patient is an elderly -[place] gentleman, who appears to be acutely ill. On top of being chronically ill, he is on mechanical ventilation. HEENT: Otherwise unremarkable. LUNGS: Show diminished air entry at the bases. No crackles, wheezing, or rhonchi. CARDIOVASCULAR: Shows regular rate, 1/6 systolic murmur. ABDOMEN: Soft, mildly distended. Bowel sounds are diminished in intensity and frequency. No abnormalities. No ascites. EXTREMITIES: Show no clubbing or cyanosis. There is no edema. NEUROLOGIC: Exam was not performed. LABORATORY FINDINGS: Sodium 132, potassium 4.9, bicarbonate 26, BUN 58, creatinine 11, hemoglobin 10.6. ASSESSMENT AND PLAN: * End-stage renal disease. * Mild hyponatremia. * Anemia of renal disease . * Congestive heart failure. * Severe underlying coronary artery disease. The patient is being transferred to ICU. He is currently in the Emergency Room. He is hemodynamically stable. At this point, there is no urgent need for dialysis. I will schedule his treatment for tomorrow. We will target ultrafiltration of 1-2 liters depending on his fluid balance in the next 24 hours. We will follow him closely. Thank you for the consultation. MD ERICA Zacarias/OLGA/JENNIFER TID: [id number] RECEIPT: [id number]
--- NOTE | 2024-12-08 15:07 | DVH ---
US THORACENTESIS, HISTORY: PLEURAL EFFUSION PROCEDURE: Informed consent was obtained. The patient was decubitus on the bed. A limited localizatio n ultrasound of the left thorax was obtained, and the optimal approach was marked on the skin. The ar ea was prepped with chlorhexidine which was allowed to dry and draped in the usual sterile fashion. T susu out was performed. The skin and the soft tissues were infiltrated with 1% lidocaine. A 5.5 Czech centesis needle catheter was advanced into left pleural space. Following aspiration of fluid, the ca theter was advanced and the needle removed. About 1000 cc of fluid was drained. Specimen/s was/were s ent for appropriate cultures/cytology/cultures and cytology. No immediate complication was identified . FINDINGS: Moderate left pleural effusion. Aspirated fluid is clear and serous. IMPRESSION: left thoracentesis with 1L removed.
--- NOTE | 2024-12-08 15:23 | DVH ---
EXAM: XY CHEST XRAY 1 VIEW Indication: S/P THORACENTESIS Technique: Single frontal view of the chest was obtained Comparison: XY CHEST XRAY 1 VIEW on DOS: 12/08/24, XY CHEST PORTABLE on DOS: 12/08/24, XY CHEST PORTABLE on DOS: 12/01/24, XY CHEST PORTABLE on DOS: 12/01/24, XY CHEST PORTABLE on DOS: 11/05/24 FINDINGS: Lines and Tubes: Cardiac pacemaker projects over the right chest wall. Endotracheal tube projects 2. 8 cm above the che. Enteric tube tip projects over the expected region of the stomach. Lungs: Small left pleural effusion and left basilar opacity. No pneumothorax. Cardiomediastinal contours: Cardiomegaly. Bones: No acute osseous abnormality. IMPRESSION: Small left pleural effusion and left basilar opacity. Cardiomegaly.
[2024-12-08] MEDS: fentaNYL Drip 2500mCg/250mlNS 250 ML IV SCH (15:52)
[2024-12-08] MEDS: NOREPINEPHRINE BITARTRATE 32 MG in SODIUM CHL 0.9% 218 ML IV SCH (16:06)
[2024-12-08 16:39] LABS: Body Fluid Red Blood Cells 68201 CUMM (0-2000); Body Fluid White Blood Cells 300 CUMM (0-200)
[2024-12-08] MEDS: InsuLIN REG 1unit/0.01ml Soln (100units/ml) SC SCH (18:00)
[2024-12-08] MEDS: ACCU-CHEK COMFORT CURVE STRIP VI SCH (18:00)
[2024-12-08] MEDS: SEVELAMER 800 MG TAB PO SCH (18:48)
[2024-12-08] MEDS: HEPARIN SODIUM (PORCINE) 5000 UNITS/ML 1ML VIAL SC ONE (18:51)
[2024-12-08] MEDS ORDERED: CARVEDILOL 12.5 MG TAB PO SCH (22:00)
[2024-12-08] MEDS: ATORVASTATIN 20 MG TAB PO SCH (22:02)
[2024-12-08] MEDS: HEPARIN SODIUM (PORCINE) 5000 UNITS/ML 1ML VIAL SC SCH (22:03)
[2024-12-09] VITALS (105 sets, daily range): BP systolic 82–159; BP diastolic 24–64; PULSE 56–81; RESP 13–24; TEMP 97.2–98.2; O2SAT 99–100
--- NOTE | 2024-12-09 03:34 | DVH ---
CHEST RADIOGRAPH Indication: Intubated Technique: Single frontal view of the chest was obtained Comparison: XY CHEST XRAY 1 VIEW on DOS: 12/08/24, XY CHEST XRAY 1 VIEW on DOS: 12/08/24, XY CHEST PORTAB LE on DOS: 12/08/24 IMPRESSION: Endotracheal tube approximately 3 cm from the che. Heart is prominent size with right cardiac tariq ce. Diyf-tl-splzfgaz interstitial pulmonary vascular congestion appears stable. Possible small pleu ral effusion. No pneumothorax. Overall no significant interval change.
[2024-12-09 05:34] LABS: Basophils # (auto) 0 10 ^3/uL (0-0.2); Basophils % (auto) 0.1 % (0.0-2.0); Eosinophils # (auto) 0 10 ^3/uL (0-0.8); Hemoglobin 9.3 g/dL (13.5-17.5); Lymphocytes # (auto) 0.3 10 ^3/uL (0.4-5.4); Lymphocytes % (auto) 6.6 % (10.0-50.0); Mean Corpuscular Hemoglobin 33.9 pg (28.0-32.0); Mean Corpuscular Hgb Conc. 34.3 g/dL (32.0-36.0); Mean Corpuscular Volume 98.7 fL (80.0-100.0); Monocytes # (auto) 0.2 10 ^3/uL (0-1.3); Monocytes % (auto) 4.3 % (0.0-12.0); Neutrophils # (auto) 4.2 10 ^3/uL (1.6-8.6); Nucleated Red Blood Cells % 0.1 %; Platelet Count (auto) 200 10^3/uL (140-450); Red Blood Cells 2.73 10^6/uL (4.5-5.90); Red Cell Distribution Width 14.4 % (11.8-14.3); White Blood Cell 4.7 10^3/uL (4.4-10.8)
[2024-12-09 05:41] LABS: Alanine Aminotransferase 24 U/L (7-40); Alkaline Phosphatase 65 U/L (46-116); Anion Gap 14 (5-15); Calcium 9.4 mg/dL (8.7-10.4); Carbon Dioxide 28 mmol/L (20-31); Potassium 4.6 mmol/L (3.5-5.1); Sodium 138 mmol/L (136-145)
[2024-12-09 05:43] LABS: BUN/Creatinine Ratio 5.4 (10.0-20.0); Total Protein 6.3 g/dL (5.7-8.2)
[2024-12-09 05:44] LABS: Albumin 3.4 g/dL (3.2-4.8)
[2024-12-09 05:45] LABS: Aspartate Aminotransferase 30 U/L (13-40)
[2024-12-09 05:50] LABS: Bilirubin, Total 0.2 mg/dL (0.2-1.0); Blood Urea Nitrogen 45 mg/dL (9-23); Chloride 96 mmol/L (98-107); Glucose 123 mg/dL (74-106)
[2024-12-09] MEDS: SODIUM CHL 0.9% 1000 ML BAG XX ONE (07:00)
[2024-12-09 07:31] LABS: Base Excess 2.5 mmol/L (-2.0-3.0)
--- NOTE | 2024-12-09 08:33 | ECG ---
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
[2024-12-09] MEDS ORDERED: ISOSORBIDE MONONITRATE ER 60 MG TAB PO SCH (10:00)
--- NOTE | 2024-12-09 11:10 | DVHPN2 ---
Progress Note - Dictate Date Seen: Dec 09, 2024 Has the PT tested + for MRSA If YES, has PT been informed?: No Medical Necessity Reason Pt with a Central, PICC or Fol: No Subjective Intubated vital signs Vital Sign Date Time Temp Pulse Resp B/P (MAP) Pulse Ox O2 Delivery O2 Flow Rate FiO2 12/09/24 10:20 62 19 113/53 (73) 100 30 12/09/24 08:00 97.2 97.2 12/09/24 06:00 Mechanical Ventilator+ 12/08/24 07:20 6 Total Intake and Output 12/08/24 12/08/24 12/09/24 15:00 23:00 07:00 Intake Total 801 ml 142.314 ml 222.566 ml Output Total 5 ml 5 ml 20 ml Balance 796 ml 137.314 ml 202.566 ml medications Current Medications Medications Dose Ordered Sig/Edson Route Start Time Stop Time Status Last Admin Dose Admin Sodium Chloride 10 ml Q8HR IV 12/08/24 14:00 12/09/24 05:54 10 ML Acetaminophen/ Hydrocodone Bitart 1 tab Q4HP PRN PO 12/08/24 09:15 Ondansetron HCl 4 mg Q4HP PRN IV 12/08/24 09:15 Docusate Sodium 100 mg BIDPRN PRN PO 12/08/24 09:15 Acetaminophen 650 mg Q6HP PRN PO 12/08/24 09:15 Nitroglycerin 0.4 mg Q5MINP PRN SL 12/08/24 09:15 Morphine Sulfate 2 mg Q30M PRN IV 12/08/24 09:15 UNV Morphine Sulfate 2 mg Q30M PRN IV 12/08/24 09:30 Ipratropium [place] 0.5 mg Q6HWA NEB 12/08/24 12:00 12/09/24 06:22 0.5 MG Albuterol 2.5 mg Q6HWA NEB 12/08/24 12:00 12/09/24 06:22 2.5 MG Clopidogrel Bisulfate 75 mg DAILY PO 12/08/24 10:00 Ranolazine 500 mg BID PO 12/08/24 10:00 12/08/24 22:03 500 MG Patient Own Medication 1 tab DAILY PO 12/08/24 10:00 UNV Patient Own Medication 1 tab DAILY PO 12/08/24 10:00 UNV Patient Own Medication 1 tab BID PO 12/08/24 10:00 UNV Patient Own Medication 1 tab DAILY PO 12/08/24 10:00 UNV Patient Own Medication 1 tab DAILY PO 12/08/24 10:00 UNV Patient Own Medication 1 tab QID PO 12/08/24 12:00 UNV Sevelamer HCl 1,600 mg TID PO 12/08/24 14:00 12/09/24 06:04 1,600 MG Methylprednisolone Sodium Succinate 40 mg BID IV 12/08/24 10:00 12/08/24 22:02 40 MG Furosemide 40 mg DAILY IV 12/08/24 10:00 12/08/24 11:27 40 MG Midazolam HCl 50 ml @ 1 mls/hr Q24H IV 12/08/24 10:15 12/09/24 05:55 7 MLS/HR Aspirin 81 mg DAILY PO 12/09/24 10:00 Atorvastatin Calcium 40 mg HS PO 12/08/24 22:00 12/08/24 22:02 40 MG Magnesium Oxide 400 mg DAILY PO 12/09/24 10:00 Diagnostic Test (Pha) 1 strip Q6HR 12/08/24 18:00 12/09/24 06:04 1 STRIP Insulin Human Regular Q6HR SC 12/08/24 18:00 Dextrose 50 ml UD PRN IV 12/08/24 12:15 Norepinephrine Bitartrate 32 mg/ Sodium Chloride 250 ml @ 0.938 mls/ hr Q24H IV 12/08/24 15:00 12/08/24 16:06 0.938 MLS/HR Fentanyl Citrate 250 ml @ 2.5 mls/hr Q24H IV 12/08/24 15:45 12/09/24 06:03 12.5 MLS/HR Heparin Sodium (Porcine) 5,000 units Q12HR SC 12/08/24 22:00 12/08/24 22:03 5,000 UNITS objective GENERAL: The patient is an elderly -[place] gentleman, who appears to be acutely ill. On top of being chronically ill, he is on mechanical ventilation. HEENT: Otherwise unremarkable. LUNGS: Show diminished air entry at the bases. No crackles, wheezing, or rhonchi. CARDIOVASCULAR: Shows regular rate, 1/6 systolic murmur. ABDOMEN: Soft, mildly distended. Bowel sounds are diminished in intensity and frequency. No abnormalities. No ascites. EXTREMITIES: Show no clubbing or cyanosis. There is no edema. NEUROLOGIC: Exam was not performed. laboratory and microbiology Laboratory Tests 12/09/24 04:53 Test 12/09/24 04:53 Range/Units Serum Glucose 123 H 74-106 mg/dL Problem List ASSESSMENT AND PLAN: * End-stage renal disease. * Mild hyponatremia. * Anemia of renal disease. * Congestive heart failure. * Respiratory failure * Severe underlying coronary artery disease. HD today, UF goal 1-2 liters Plan discussed with: Other HI WINTER MD Dec 09, 2024 11:10
[2024-12-09] MEDS: ASPirin-EC 81 mg tab PO SCH (11:25)
[2024-12-09] MEDS: MAGNESIUM OXIDE 400 MG TAB PO SCH (11:25)
--- NOTE | 2024-12-09 14:19 | DVHPN2 ---
Progress Note Date Seen: Dec 09, 2024 Has the PT tested + for MRSA If YES, has PT been informed?: No Medical Necessity Reason Pt with a Central, PICC or Fol: Yes The following are medically ne: Central Line Subjective Patient reports: No new complaints Review of Systems: HEENT:Normal, CVS:Normal, RESPIRATORY:Normal, GI:Normal, :Normal, MSK:Normal, NEURO:Normal Objective vital signs Vital Sign Date Time Temp Pulse Resp B/P (MAP) Pulse Ox O2 Delivery O2 Flow Rate FiO2 12/09/24 13:15 61 13 110/55 (73) 100 12/09/24 12:24 30 12/09/24 12:00 Mechanical Ventilator+ 12/09/24 12:00 97.2 97.2 12/08/24 07:20 6 Total Intake and Output 12/08/24 12/08/24 12/09/24 15:00 23:00 07:00 Intake Total 801 ml 142.314 ml 222.566 ml Output Total 5 ml 5 ml 20 ml Balance 796 ml 137.314 ml 202.566 ml medications Current Medications Medications Dose Ordered Sig/Edson Route Start Time Stop Time Status Last Admin Dose Admin Sodium Chloride 10 ml Q8HR IV 12/08/24 14:00 12/09/24 05:54 10 ML Acetaminophen/ Hydrocodone Bitart 1 tab Q4HP PRN PO 12/08/24 09:15 Ondansetron HCl 4 mg Q4HP PRN IV 12/08/24 09:15 Docusate Sodium 100 mg BIDPRN PRN PO 12/08/24 09:15 Acetaminophen 650 mg Q6HP PRN PO 12/08/24 09:15 Nitroglycerin 0.4 mg Q5MINP PRN SL 12/08/24 09:15 Morphine Sulfate 2 mg Q30M PRN IV 12/08/24 09:15 UNV Morphine Sulfate 2 mg Q30M PRN IV 12/08/24 09:30 Ipratropium [place] 0.5 mg Q6HWA NEB 12/08/24 12:00 12/09/24 12:24 0.5 MG Albuterol 2.5 mg Q6HWA NEB 12/08/24 12:00 12/09/24 12:24 2.5 MG Clopidogrel Bisulfate 75 mg DAILY PO 12/08/24 10:00 12/09/24 11:25 75 MG Ranolazine 500 mg BID PO 12/08/24 10:00 12/08/24 22:03 500 MG Patient Own Medication 1 tab DAILY PO 12/08/24 10:00 UNV Patient Own Medication 1 tab DAILY PO 12/08/24 10:00 UNV Patient Own Medication 1 tab BID PO 12/08/24 10:00 UNV Patient Own Medication 1 tab DAILY PO 12/08/24 10:00 UNV Patient Own Medication 1 tab DAILY PO 12/08/24 10:00 UNV Patient Own Medication 1 tab QID PO 12/08/24 12:00 UNV Sevelamer HCl 1,600 mg TID PO 12/08/24 14:00 12/09/24 06:04 1,600 MG Methylprednisolone Sodium Succinate 40 mg BID IV 12/08/24 10:00 12/09/24 11:27 40 MG Furosemide 40 mg DAILY IV 12/08/24 10:00 12/09/24 11:25 40 MG Midazolam HCl 50 ml @ 1 mls/hr Q24H IV 12/08/24 10:15 12/09/24 05:55 7 MLS/HR Aspirin 81 mg DAILY PO 12/09/24 10:00 12/09/24 11:25 81 MG Atorvastatin Calcium 40 mg HS PO 12/08/24 22:00 12/08/24 22:02 40 MG Magnesium Oxide 400 mg DAILY PO 12/09/24 10:00 12/09/24 11:25 400 MG Diagnostic Test (Pha) 1 strip Q6HR 12/08/24 18:00 12/09/24 12:00 1 STRIP Insulin Human Regular Q6HR SC 12/08/24 18:00 Dextrose 50 ml UD PRN IV 12/08/24 12:15 Norepinephrine Bitartrate 32 mg/ Sodium Chloride 250 ml @ 0.938 mls/ hr Q24H IV 12/08/24 15:00 12/08/24 16:06 0.938 MLS/HR Fentanyl Citrate 250 ml @ 2.5 mls/hr Q24H IV 12/08/24 15:45 12/09/24 06:03 12.5 MLS/HR Heparin Sodium (Porcine) 5,000 units Q12HR SC 12/08/24 22:00 12/09/24 11:24 5,000 UNITS Examination: GENERAL:Normal, HEENT:Normal, NECK:Normal, LUNGS:Normal, LUNGS:Abnormal (intubated), CVS:Normal, ABDOMEN:Normal, MSK:Normal, SKIN:Normal, NEURO:Normal, :Normal laboratory and microbiology Laboratory Tests 12/09/24 04:53 Test 12/09/24 04:53 Range/Units Serum Glucose 123 H 74-106 mg/dL Microbiology Date/Time Source Procedure Growth Status 12/08/24 13:00 Nose MRSA Screen - Final Complete 12/08/24 10:13 Sputum Gram Stain Pending Resulted 12/08/24 10:13 Sputum Respiratory Culture - Preliminary Resulted 12/08/24 06:41 Blood Blood Culture - Preliminary NO GROWTH AFTER 24 HOURS OF INCUBATION. Resulted Problem List/Assessment/Plan Problem List/Assessment/Plan * acute resp failure: cont acv, cpap in am *Tthyq-xa-mgdeoke systolic heart failure: dialysis * End-stage renal disease, on hemodialysis. * Coronary artery disease with previous stent: cont meds * History of coronary artery bypass graft. * Chronic obstructive pulmonary disease: on steroids * Anemia * Shock ?cardiac: on levophed * Diabetes mellitus: ssi * History of hepatitis C. * Frh-HS-njeiqozmv myocardial infarction, status post recent coronary angiography. Plan discussed with: Other (rn) Critical Care Time (mins): 81 (critical care time excluding procedures was 81 mins) Date of Service: Dec 09, 2024 Billing Provider: CRAIG NAZARIO MD Common Visit Codes: [id number] CARE 30-74 MIN, [id number] CARE-EACH +30MIN CRAIG NAZARIO MD Dec 09, 2024 14:19
[2024-12-09] MEDS: EPOETIN ALFA-EPBX 4,000 UNIT/ML VIAL SC ONE (21:05)
[2024-12-10] VITALS (108 sets, daily range): BP systolic 90–130; BP diastolic 20–74; PULSE 52–89; RESP 11–33; TEMP 97–98.8; O2SAT 99–100
[2024-12-10 04:22] LABS: Basophils # (auto) 0 10 ^3/uL (0-0.2); Basophils % (auto) 0.2 % (0.0-2.0); Eosinophils # (auto) 0 10 ^3/uL (0-0.8); Hematocrit 26.2 % (41.0-53.0); Hemoglobin 8.8 g/dL (13.5-17.5); Lymphocytes # (auto) 0.2 10 ^3/uL (0.4-5.4); Lymphocytes % (auto) 5.1 % (10.0-50.0); Mean Corpuscular Hemoglobin 32.2 pg (28.0-32.0); Mean Corpuscular Hgb Conc. 33.5 g/dL (32.0-36.0); Mean Corpuscular Volume 96.3 fL (80.0-100.0); Monocytes # (auto) 0.2 10 ^3/uL (0-1.3); Monocytes % (auto) 4.8 % (0.0-12.0); Neutrophils # (auto) 4.2 10 ^3/uL (1.6-8.6); Neutrophils % (auto) 89.9 % (37.0-80.0); Nucleated Red Blood Cells % 0.2 %; Platelet Count (auto) 190 10^3/uL (140-450); Red Blood Cells 2.72 10^6/uL (4.5-5.90); Red Cell Distribution Width 14.5 % (11.8-14.3); White Blood Cell 4.7 10^3/uL (4.4-10.8)
[2024-12-10 04:40] LABS: Alanine Aminotransferase 18 U/L (7-40); Albumin 3.4 g/dL (3.2-4.8); Alkaline Phosphatase 55 U/L (46-116); Anion Gap 14 (5-15); Aspartate Aminotransferase 20 U/L (13-40); Calcium 9.7 mg/dL (8.7-10.4); Carbon Dioxide 28 mmol/L (20-31); Total Protein 6.4 g/dL (5.7-8.2)
[2024-12-10 04:45] LABS: Blood Urea Nitrogen 61 mg/dL (9-23); Chloride 94 mmol/L (98-107); Glucose 147 mg/dL (74-106); Sodium 136 mmol/L (136-145)
[2024-12-10 04:46] LABS: Bilirubin, Total 0.2 mg/dL (0.2-1.0); Magnesium 2.8 mg/dL (1.6-2.6)
--- NOTE | 2024-12-10 05:51 | DVH ---
EXAM: XR Chest, 1 View CLINICAL INDICATION: RESP FAILURE TECHNIQUE: Frontal view of the chest. COMPARISON: XY CHEST PORTABLE on DOS: 12/09/24, XY CHEST XRAY 1 VIEW on DOS: 12/08/24, XY CHEST XRAY 1 VIEW on DOS: 12/08/24, XY CHEST PORTABLE on DOS: 12/08/24, XY CHEST PORTABLE on DOS: 12/01/24 FINDINGS: LUNGS AND PLEURAL SPACES: Left basilar atelectasis or pneumonia. HEART: Cardiomegaly with mild congestion. MEDIASTINUM: Unremarkable. Normal mediastinal contour. BONES/JOINTS: Unremarkable. No acute fracture. TUBES, LINES AND DEVICES: Right-sided cardiac pacemaker. The endotracheal tube (ETT) is in satisfa ctory position. Enteric tube tip in the stomach. OTHER FINDINGS: . . IMPRESSION: 1. Left basilar atelectasis or pneumonia. 2. Cardiomegaly with mild congestion.
[2024-12-10 06:44] LABS: Base Excess 8.8 mmol/L (-2.0-3.0)
[2024-12-10] MEDS: SODIUM CHL 0.9% 1000 ML BAG XX ONE (07:00)
--- NOTE | 2024-12-10 11:53 | DVHPN2 ---
Progress Note - Dictate Date Seen: Dec 10, 2024 Has the PT tested + for MRSA If YES, has PT been informed?: No Medical Necessity Reason Pt with a Central, PICC or Fol: Yes The following are medically ne: Central Line Subjective Remains intubated vital signs Vital Sign Date Time Temp Pulse Resp B/P (MAP) Pulse Ox O2 Delivery O2 Flow Rate FiO2 12/10/24 08:15 60 12 130/59 (82) 99 12/10/24 08:00 97.0 97.0 12/10/24 07:58 30 12/10/24 06:00 Mechanical Ventilator+ 12/08/24 07:20 6 Total Intake and Output 12/09/24 12/09/24 12/10/24 15:00 23:00 07:00 Intake Total 176.628 ml 215.5 ml 77.0 ml Output Total 23 ml 10 ml Balance 176.628 ml 192.5 ml 67.0 ml medications Current Medications Medications Dose Ordered Sig/Edson Route Start Time Stop Time Status Last Admin Dose Admin Sodium Chloride 10 ml Q8HR IV 12/08/24 14:00 12/10/24 05:31 10 ML Ondansetron HCl 4 mg Q4HP PRN IV 12/08/24 09:15 Docusate Sodium 100 mg BIDPRN PRN PO 12/08/24 09:15 Acetaminophen 650 mg Q6HP PRN PO 12/08/24 09:15 Nitroglycerin 0.4 mg Q5MINP PRN SL 12/08/24 09:15 Morphine Sulfate 2 mg Q30M PRN IV 12/08/24 09:15 UNV Morphine Sulfate 2 mg Q30M PRN IV 12/08/24 09:30 Ipratropium [place] 0.5 mg Q6HWA NEB 12/08/24 12:00 12/10/24 06:10 0.5 MG Albuterol 2.5 mg Q6HWA NEB 12/08/24 12:00 12/10/24 06:10 2.5 MG Clopidogrel Bisulfate 75 mg DAILY PO 12/08/24 10:00 12/09/24 11:25 75 MG Ranolazine 500 mg BID PO 12/08/24 10:00 12/09/24 21:53 500 MG Patient Own Medication 1 tab DAILY PO 12/08/24 10:00 UNV Patient Own Medication 1 tab DAILY PO 12/08/24 10:00 UNV Patient Own Medication 1 tab BID PO 12/08/24 10:00 UNV Patient Own Medication 1 tab DAILY PO 12/08/24 10:00 UNV Patient Own Medication 1 tab DAILY PO 12/08/24 10:00 UNV Patient Own Medication 1 tab QID PO 12/08/24 12:00 UNV Sevelamer HCl 1,600 mg TID PO 12/08/24 14:00 12/10/24 05:31 1,600 MG Methylprednisolone Sodium Succinate 40 mg BID IV 12/08/24 10:00 12/09/24 21:57 40 MG Midazolam HCl 50 ml @ 1 mls/hr Q24H IV 12/08/24 10:15 12/09/24 23:12 6 MLS/HR Aspirin 81 mg DAILY PO 12/09/24 10:00 12/09/24 11:25 81 MG Atorvastatin Calcium 40 mg HS PO 12/08/24 22:00 12/09/24 21:53 40 MG Magnesium Oxide 400 mg DAILY PO 12/09/24 10:00 12/09/24 11:25 400 MG Diagnostic Test (Pha) 1 strip Q6HR 12/08/24 18:00 12/10/24 05:32 1 STRIP Insulin Human Regular Q6HR SC 12/08/24 18:00 Dextrose 50 ml UD PRN IV 12/08/24 12:15 Norepinephrine Bitartrate 32 mg/ Sodium Chloride 250 ml @ 0.938 mls/ hr Q24H IV 12/08/24 15:00 12/08/24 16:06 0.938 MLS/HR Fentanyl Citrate 250 ml @ 2.5 mls/hr Q24H IV 12/08/24 15:45 12/09/24 23:11 12.5 MLS/HR Heparin Sodium (Porcine) 5,000 units Q12HR SC 12/08/24 22:00 12/09/24 21:52 5,000 UNITS Pantoprazole Sodium 40 mg DAILY IV 12/10/24 10:00 objective GENERAL: The patient is an elderly -[place] gentleman, who appears to be acutely ill. On top of being chronically ill, he is on mechanical ventilation. HEENT: Otherwise unremarkable. LUNGS: Show diminished air entry at the bases. No crackles, wheezing, or rhonchi. CARDIOVASCULAR: Shows regular rate, 1/6 systolic murmur. ABDOMEN: Soft, mildly distended. Bowel sounds are diminished in intensity and frequency. No abnormalities. No ascites. EXTREMITIES: Show no clubbing or cyanosis. There is no edema. NEUROLOGIC: Exam was not performed. laboratory and microbiology Laboratory Tests 12/10/24 03:50 Test 12/10/24 03:50 Range/Units Serum Glucose 147 H 74-106 mg/dL Problem List ASSESSMENT AND PLAN: * End-stage renal disease.Stable from renal standpoint * Mild hyponatremia. * Anemia of renal disease. * Congestive heart failure. * Respiratory failure * Severe underlying coronary artery disease. HD again today, will remove 3 L Cardiology follow up Plan discussed with: Other HI WINTER MD Dec 10, 2024 11:53
[2024-12-10] MEDS: PANTOPRAZOLE 40 MG/10 ML VIAL INJ IV SCH (13:04)
--- NOTE | 2024-12-10 14:51 | DVHPN2 ---
Progress Note Date Seen: Dec 10, 2024 Has the PT tested + for MRSA If YES, has PT been informed?: No Medical Necessity Reason Pt with a Central, PICC or Fol: Yes The following are medically ne: Central Line Subjective Patient reports: No new complaints Review of Systems: HEENT:Normal, CVS:Normal, RESPIRATORY:Normal, GI:Normal, :Normal, MSK:Normal, NEURO:Normal Objective vital signs Vital Sign Date Time Temp Pulse Resp B/P (MAP) Pulse Ox O2 Delivery O2 Flow Rate FiO2 12/10/24 12:33 65 17 108/53 (71) 100 30 12/10/24 12:00 97.5 97.5 12/10/24 06:00 Mechanical Ventilator+ 12/08/24 07:20 6 Total Intake and Output 12/09/24 12/09/24 12/10/24 15:00 23:00 07:00 Intake Total 176.628 ml 215.5 ml 77.0 ml Output Total 23 ml 10 ml Balance 176.628 ml 192.5 ml 67.0 ml medications Current Medications Medications Dose Ordered Sig/Edson Route Start Time Stop Time Status Last Admin Dose Admin Sodium Chloride 10 ml Q8HR IV 12/08/24 14:00 12/10/24 05:31 10 ML Ondansetron HCl 4 mg Q4HP PRN IV 12/08/24 09:15 Docusate Sodium 100 mg BIDPRN PRN PO 12/08/24 09:15 Acetaminophen 650 mg Q6HP PRN PO 12/08/24 09:15 Nitroglycerin 0.4 mg Q5MINP PRN SL 12/08/24 09:15 Morphine Sulfate 2 mg Q30M PRN IV 12/08/24 09:15 UNV Morphine Sulfate 2 mg Q30M PRN IV 12/08/24 09:30 Ipratropium [place] 0.5 mg Q6HWA NEB 12/08/24 12:00 12/10/24 12:33 0.5 MG Albuterol 2.5 mg Q6HWA NEB 12/08/24 12:00 12/10/24 12:33 2.5 MG Clopidogrel Bisulfate 75 mg DAILY PO 12/08/24 10:00 12/10/24 13:05 75 MG Ranolazine 500 mg BID PO 12/08/24 10:00 12/09/24 21:53 500 MG Patient Own Medication 1 tab DAILY PO 12/08/24 10:00 UNV Patient Own Medication 1 tab DAILY PO 12/08/24 10:00 UNV Patient Own Medication 1 tab BID PO 12/08/24 10:00 UNV Patient Own Medication 1 tab DAILY PO 12/08/24 10:00 UNV Patient Own Medication 1 tab DAILY PO 12/08/24 10:00 UNV Patient Own Medication 1 tab QID PO 12/08/24 12:00 UNV Sevelamer HCl 1,600 mg TID PO 12/08/24 14:00 12/10/24 05:31 1,600 MG Methylprednisolone Sodium Succinate 40 mg BID IV 12/08/24 10:00 12/10/24 13:04 40 MG Midazolam HCl 50 ml @ 1 mls/hr Q24H IV 12/08/24 10:15 12/09/24 23:12 6 MLS/HR Aspirin 81 mg DAILY PO 12/09/24 10:00 12/10/24 13:06 81 MG Atorvastatin Calcium 40 mg HS PO 12/08/24 22:00 12/09/24 21:53 40 MG Magnesium Oxide 400 mg DAILY PO 12/09/24 10:00 12/10/24 13:05 400 MG Diagnostic Test (Pha) 1 strip Q6HR 12/08/24 18:00 12/10/24 12:00 1 STRIP Insulin Human Regular Q6HR SC 12/08/24 18:00 Dextrose 50 ml UD PRN IV 12/08/24 12:15 Norepinephrine Bitartrate 32 mg/ Sodium Chloride 250 ml @ 0.938 mls/ hr Q24H IV 12/08/24 15:00 12/08/24 16:06 0.938 MLS/HR Fentanyl Citrate 250 ml @ 2.5 mls/hr Q24H IV 12/08/24 15:45 12/09/24 23:11 12.5 MLS/HR Heparin Sodium (Porcine) 5,000 units Q12HR SC 12/08/24 22:00 12/10/24 13:05 5,000 UNITS Pantoprazole Sodium 40 mg DAILY IV 12/10/24 10:00 12/10/24 13:04 40 MG Examination: GENERAL:Normal, HEENT:Normal, NECK:Normal, LUNGS:Normal, LUNGS:Abnormal (intubated), CVS:Normal, ABDOMEN:Normal, MSK:Normal, SKIN:Normal, NEURO:Normal, :Normal laboratory and microbiology Laboratory Tests 12/10/24 03:50 Test 12/10/24 03:50 Range/Units Serum Glucose 147 H 74-106 mg/dL Microbiology Date/Time Source Procedure Growth Status 12/08/24 14:30 Pleural Fluid Gram Stain - Final Resulted 12/08/24 14:30 Pleural Fluid Aerobic Culture - Preliminary Resulted 12/08/24 13:00 Nose MRSA Screen - Final Complete 12/08/24 10:13 Sputum Gram Stain - Final Resulted 12/08/24 10:13 Sputum Respiratory Culture - Preliminary Resulted 12/08/24 06:41 Blood Blood Culture - Preliminary NO GROWTH AFTER 48 HOURS OF INCUBATION. Resulted Problem List/Assessment/Plan Problem List/Assessment/Plan * acute resp failure: cont acv, cpap in am *Enuav-tb-bloljfd systolic heart failure: dialysis * End-stage renal disease, on hemodialysis. * Coronary artery disease with previous stent: cont meds * History of coronary artery bypass graft. * Chronic obstructive pulmonary disease: on steroids * Anemia * Shock ?cardiac: on levophed * Diabetes mellitus: ssi * History of hepatitis C. * Zuk-KA-mkrgtztob myocardial infarction, status post recent coronary angiography. Plan discussed with: Spouse My Orders My Orders Orders - CRAIG NAZARIO MD Procedure Category Date Status Time Cpap Trial For Am ORDERS 12/10/24 Verified 14:43 Basic Metabolic Panel LAB 12/11/24 Verified 06:00 Complete Blood Count LAB 12/11/24 Verified 06:00 Chest Portable XY 12/11/24 Verified 06:00 Abg W/ Co-Ox RT 12/11/24 Verified 06:00 Dietary Evaluation Review Comments: 1. TF Nepro Carb Steady @ 45ml/hr. start @ 20ml/hr, increase 10ml/hr Q4H until goal is reached. TF at goal volume provides 100% energy & protein needs - 1944 kcal, 87 gm protein, 785 ml free water 2. Water flush 50ml Q6H 3. TPN if NPO> 7 days Expected Outcomes/Goals: To meet >75% estimated needs Fu 2-3 days Critical Care Time (mins): 81 (critical care time excluding procedures was 81 mins) Date of Service: Dec 10, 2024 Billing Provider: CRAIG NAZARIO MD Common Visit Codes: 53862-[id number] CARE 30-74 MIN, [id number] CARE-EACH +30MIN CRAIG NAZARIO MD Dec 10, 2024 14:51
[2024-12-10] MEDS ORDERED: Nepro With Carb Steady 1 Liter Bottle GT SCH (15:00)
[2024-12-10] MEDS: EPOETIN ALFA-EPBX 4,000 UNIT/ML VIAL SC ONE (21:01)
[2024-12-11] VITALS (107 sets, daily range): BP systolic 102–144; BP diastolic 45–79; PULSE 55–112; RESP 10–30; TEMP 97.5–98.7; O2SAT 91–100
[2024-12-11 05:13] LABS: Basophils # (auto) 0 10 ^3/uL (0-0.2); Eosinophils # (auto) 0 10 ^3/uL (0-0.8); Hematocrit 27.2 % (41.0-53.0); Hemoglobin 9.4 g/dL (13.5-17.5); Lymphocytes # (auto) 0.2 10 ^3/uL (0.4-5.4); Lymphocytes % (auto) 4.6 % (10.0-50.0); Mean Corpuscular Hemoglobin 32.8 pg (28.0-32.0); Mean Corpuscular Hgb Conc. 34.4 g/dL (32.0-36.0); Mean Corpuscular Volume 95.2 fL (80.0-100.0); Monocytes # (auto) 0.3 10 ^3/uL (0-1.3); Monocytes % (auto) 5.6 % (0.0-12.0); Neutrophils # (auto) 4.3 10 ^3/uL (1.6-8.6); Neutrophils % (auto) 89.8 % (37.0-80.0); Nucleated Red Blood Cells % 0.2 %; Platelet Count (auto) 207 10^3/uL (140-450); Red Blood Cells 2.86 10^6/uL (4.5-5.90); Red Cell Distribution Width 14.1 % (11.8-14.3); White Blood Cell 4.8 10^3/uL (4.4-10.8)
[2024-12-11 05:18] LABS: Anion Gap 10 (5-15); Carbon Dioxide 29 mmol/L (20-31); Potassium 4.4 mmol/L (3.5-5.1); Sodium 137 mmol/L (136-145)
[2024-12-11 05:20] LABS: Calcium 10.4 mg/dL (8.7-10.4)
[2024-12-11 05:25] LABS: BUN/Creatinine Ratio 6.7 (10.0-20.0)
[2024-12-11 05:31] LABS: Blood Urea Nitrogen 56 mg/dL (9-23); Chloride 98 mmol/L (98-107); Glucose 142 mg/dL (74-106)
--- NOTE | 2024-12-11 06:06 | DVH ---
CHEST RADIOGRAPH Indication: RESP FAILURE Technique: Single frontal view of the chest was obtained COMPARISON: XY CHEST PORTABLE on DOS: 12/10/24, XY CHEST PORTABLE on DOS: 12/09/24, XY CHEST XRAY 1 VIEW on DOS: 12/08/24, XY CHEST XRAY 1 VIEW on DOS: 12/08/24, XY CHEST PORTABLE on DOS: 12/08/24 FINDINGS: Lines and Tubes: Endotracheal tube and enteric catheter in satisfactory position. Right chest wall p acemaker. Lungs: Pulmonary vascular congestion. Pleura: Small left pleural effusion. No pneumothorax. Cardiomediastinal contours: Unremarkable Bones: Unremarkable IMPRESSION: Lines and tubes in satisfactory position. No significant interval change.
[2024-12-11 06:59] LABS: Base Excess 4.1 mmol/L (-2.0-3.0)
--- NOTE | 2024-12-11 10:42 | DVHPN2 ---
Progress Note - Dictate Date Seen: Dec 11, 2024 Has the PT tested + for MRSA If YES, has PT been informed?: No Medical Necessity Reason Pt with a Central, PICC or Fol: Yes The following are medically ne: Central Line Subjective Remains intubated vital signs Vital Sign Date Time Temp Pulse Resp B/P (MAP) Pulse Ox O2 Delivery O2 Flow Rate FiO2 12/11/24 10:18 68 18 120/58 (78) 100 30 12/11/24 10:00 Mechanical Ventilator+ 12/11/24 08:00 97.5 97.5 Total Intake and Output 12/10/24 12/10/24 12/11/24 15:00 23:00 07:00 Intake Total 21.0 ml 207.5 ml 391.0 ml Output Total 0 ml 30 ml Balance 21.0 ml 207.5 ml 361.0 ml medications Current Medications Medications Dose Ordered Sig/Edson Route Start Time Stop Time Status Last Admin Dose Admin Sodium Chloride 10 ml Q8HR IV 12/08/24 14:00 12/11/24 05:53 10 ML Ondansetron HCl 4 mg Q4HP PRN IV 12/08/24 09:15 Docusate Sodium 100 mg BIDPRN PRN PO 12/08/24 09:15 Acetaminophen 650 mg Q6HP PRN PO 12/08/24 09:15 Nitroglycerin 0.4 mg Q5MINP PRN SL 12/08/24 09:15 Morphine Sulfate 2 mg Q30M PRN IV 12/08/24 09:15 UNV Morphine Sulfate 2 mg Q30M PRN IV 12/08/24 09:30 Ipratropium [place] 0.5 mg Q6HWA NEB 12/08/24 12:00 12/11/24 05:50 0.5 MG Albuterol 2.5 mg Q6HWA NEB 12/08/24 12:00 12/11/24 05:50 2.5 MG Clopidogrel Bisulfate 75 mg DAILY PO 12/08/24 10:00 12/11/24 09:46 75 MG Ranolazine 500 mg BID PO 12/08/24 10:00 12/09/24 21:53 500 MG Patient Own Medication 1 tab DAILY PO 12/08/24 10:00 UNV Patient Own Medication 1 tab DAILY PO 12/08/24 10:00 UNV Patient Own Medication 1 tab BID PO 12/08/24 10:00 UNV Patient Own Medication 1 tab DAILY PO 12/08/24 10:00 UNV Patient Own Medication 1 tab DAILY PO 12/08/24 10:00 UNV Patient Own Medication 1 tab QID PO 12/08/24 12:00 UNV Sevelamer HCl 1,600 mg TID PO 12/08/24 14:00 12/11/24 05:53 1,600 MG Methylprednisolone Sodium Succinate 40 mg BID IV 12/08/24 10:00 12/11/24 09:46 40 MG Midazolam HCl 50 ml @ 1 mls/hr Q24H IV 12/08/24 10:15 12/11/24 00:44 6 MLS/HR Aspirin 81 mg DAILY PO 12/09/24 10:00 12/11/24 09:46 81 MG Atorvastatin Calcium 40 mg HS PO 12/08/24 22:00 12/10/24 20:59 40 MG Diagnostic Test (Pha) 1 strip Q6HR 12/08/24 18:00 12/11/24 05:53 1 STRIP Insulin Human Regular Q6HR SC 12/08/24 18:00 12/11/24 05:54 2 UNITS Dextrose 50 ml UD PRN IV 12/08/24 12:15 Norepinephrine Bitartrate 32 mg/ Sodium Chloride 250 ml @ 0.938 mls/ hr Q24H IV 12/08/24 15:00 12/08/24 16:06 0.938 MLS/HR Fentanyl Citrate 250 ml @ 2.5 mls/hr Q24H IV 12/08/24 15:45 12/11/24 00:45 15 MLS/HR Heparin Sodium (Porcine) 5,000 units Q12HR SC 12/08/24 22:00 12/11/24 09:45 5,000 UNITS Pantoprazole Sodium 40 mg DAILY IV 12/10/24 10:00 12/11/24 09:45 40 MG Enteral Nutritional Formula 1,000 ml 30ML/HR GT 12/10/24 15:00 objective GENERAL: The patient is an elderly -[place] gentleman, who appears to be acutely ill. On top of being chronically ill, he is on mechanical ventilation. HEENT: Otherwise unremarkable. LUNGS: Show diminished air entry at the bases. No crackles, wheezing, or rhonchi. CARDIOVASCULAR: Shows regular rate, /6 systolic murmur. ABDOMEN: Soft, mildly distended. Bowel sounds are diminished in intensity and frequency. No abnormalities. No ascites. EXTREMITIES: Show no clubbing or cyanosis. There is no edema. NEUROLOGIC: Exam was not performed. laboratory and microbiology Laboratory Tests 12/11/24 04:38 Test 12/11/24 04:38 Range/Units Serum Glucose 142 H 74-106 mg/dL Problem List ASSESSMENT AND PLAN: * End-stage renal disease.Stable from renal standpoint * Mild hyponatremia. * Anemia of renal disease. * Congestive heart failure. * Respiratory failure * Severe underlying coronary artery disease. * Pleural effusion s/p thoracentesis HD tomorrow will remove 3 L Wean off ventilator Dietary Evaluation Review Comments: 1. TF Nepro Carb Steady @ 45ml/hr. start @ 20ml/hr, increase 10ml/hr Q4H until goal is reached. TF at goal volume provides 100% energy & protein needs - 1944 kcal, 87 gm protein, 785 ml free water 2. Water flush 50ml Q6H 3. TPN if NPO> 7 days Expected Outcomes/Goals: To meet >75% estimated needs Fu 2-3 days Plan discussed with: Other HI WINTER MD Dec 11, 2024 10:42
--- NOTE | 2024-12-11 15:47 | DVHPNRES ---
Progress Note Date Seen: Dec 11, 2024 Resident Creating Document: NIGHAT SOLANO RESIDENT Has the PT tested + for MRSA If YES, has PT been informed?: No Medical Necessity Reason Pt with a Central, PICC or Fol: Yes The following are medically ne: Central Line Medical Necessity Reason Subjective Review of Systems Mr. Garrick Wagner is a 74-year-old male with multiple medical history including PR, CHF, COPD, hypertension, hyperlipidemia, diabetes, CABG, cardiac stents, 2L N/C home oxygen use, ESRD on HD, and AICD who presented to the ED due to chest pain and shortness of breath. Patient was found to have pleural effusion now s/p thoracentesis and fluid analysis pending. Patient was also intubated on same day in the ED. Patient had failed cpap yesterday and earlier today. Vitals today include temp: 97.0-98.37, pulse 55-85, RR: 33-16, BP: 116/58-140/56. Currently on Cpap trial. Has been on Cpap since 12:08 pm. Objective vital signs Vital Sign Date Time Temp Pulse Resp B/P (MAP) Pulse Ox O2 Delivery O2 Flow Rate FiO2 12/11/24 12:45 85 15 116/58 (77) 99 12/11/24 12:30 97.7 97.7 12/11/24 12:05 30 12/11/24 12:00 Mechanical Ventilator+ Total Intake and Output 12/10/24 12/10/24 12/11/24 15:00 23:00 07:00 Intake Total 21.0 ml 207.5 ml 391.0 ml Output Total 0 ml 30 ml Balance 21.0 ml 207.5 ml 361.0 ml medications Current Medications Medications Dose Ordered Sig/Edson Route Start Time Stop Time Status Last Admin Dose Admin Sodium Chloride 10 ml Q8HR IV 12/08/24 14:00 12/11/24 05:53 10 ML Ondansetron HCl 4 mg Q4HP PRN IV 12/08/24 09:15 Docusate Sodium 100 mg BIDPRN PRN PO 12/08/24 09:15 Acetaminophen 650 mg Q6HP PRN PO 12/08/24 09:15 Nitroglycerin 0.4 mg Q5MINP PRN SL 12/08/24 09:15 Morphine Sulfate 2 mg Q30M PRN IV 12/08/24 09:15 UNV Morphine Sulfate 2 mg Q30M PRN IV 12/08/24 09:30 Ipratropium [place] 0.5 mg Q6HWA [facility] 12/08/24 12:00 12/11/24 13:07 0.5 MG Albuterol 2.5 mg Q6HWA [facility] 12/08/24 12:00 12/11/24 13:07 2.5 MG Clopidogrel Bisulfate 75 mg DAILY PO 12/08/24 10:00 12/11/24 09:46 75 MG Ranolazine 500 mg BID PO 12/08/24 10:00 12/09/24 21:53 500 MG Patient Own Medication 1 tab DAILY PO 12/08/24 10:00 UNV Patient Own Medication 1 tab DAILY PO 12/08/24 10:00 UNV Patient Own Medication 1 tab BID PO 12/08/24 10:00 UNV Patient Own Medication 1 tab DAILY PO 12/08/24 10:00 UNV Patient Own Medication 1 tab DAILY PO 12/08/24 10:00 UNV Patient Own Medication 1 tab QID PO 12/08/24 12:00 UNV Sevelamer HCl 1,600 mg TID PO 12/08/24 14:00 12/11/24 05:53 1,600 MG Methylprednisolone Sodium Succinate 40 mg BID IV 12/08/24 10:00 12/11/24 09:46 40 MG Midazolam HCl 50 ml @ 1 mls/hr Q24H IV 12/08/24 10:15 12/11/24 00:44 6 MLS/HR Aspirin 81 mg DAILY PO 12/09/24 10:00 12/11/24 09:46 81 MG Atorvastatin Calcium 40 mg HS PO 12/08/24 22:00 12/10/24 20:59 40 MG Diagnostic Test (Pha) 1 strip Q6HR 12/08/24 18:00 12/11/24 05:53 1 STRIP Insulin Human Regular Q6HR SC 12/08/24 18:00 12/11/24 05:54 2 UNITS Dextrose 50 ml UD PRN IV 12/08/24 12:15 Norepinephrine Bitartrate 32 mg/ Sodium Chloride 250 ml @ 0.938 mls/ hr Q24H IV 12/08/24 15:00 12/08/24 16:06 0.938 MLS/HR Fentanyl Citrate 250 ml @ 2.5 mls/hr Q24H IV 12/08/24 15:45 12/11/24 00:45 15 MLS/HR Heparin Sodium (Porcine) 5,000 units Q12HR SC 12/08/24 22:00 12/11/24 09:45 5,000 UNITS Pantoprazole Sodium 40 mg DAILY IV 12/10/24 10:00 12/11/24 09:45 40 MG Enteral Nutritional Formula 1,000 ml 30ML/HR GT 12/10/24 15:00 Examination General Appearance: intubated on cpap. HEENT: AtraumatiC Respiratory: Clear to auscultation, Normal air movement Cardiovascular: Regular rate, Normal S1, Normal S2, No murmurs, no chest wall tenderness Abdominal: NO distention, no tenderness, bowel sounds present, no scars noted Extremities: onychomycosis, No clubbing, No cyanosis, No edema, Normal pulses, No tenderness/swelling Skin: No rashes, No breakdown, No significant lesion Neuro: in bed in [facility] Psych/Mental Status: N/A laboratory and microbiology Laboratory Tests 12/11/24 04:38 Test 12/11/24 04:38 Range/Units Serum Glucose 142 H 74-106 mg/dL Microbiology Date/Time Source Procedure Growth Status 12/08/24 14:30 Pleural Fluid Gram Stain - Final Resulted 12/08/24 14:30 Pleural Fluid Aerobic Culture - Preliminary Resulted 12/08/24 13:00 Nose MRSA Screen - Final Complete 12/08/24 10:13 Sputum Gram Stain - Final Complete 12/08/24 10:13 Sputum Respiratory Culture - Final Complete 12/08/24 06:41 Blood Blood Culture - Preliminary NO GROWTH AFTER 72 HOURS OF INCUBATION. Resulted Problem List/Assessment/Plan Problem List/Assessment/Plan ASSESSMENT AND PLAN: NEURO: Awake and and following command, episodes of being drowsy - was Sedatives held CARDIOVASCULAR: Hypertensive heart disease Acute on chronic decompensated HFrEF coronary artery disease status post triple-vessel CABG (01/2024) status post successful PTCA and stenting ischemic cardiomyopathy with EF 35-40%, sick sinus syndrome status post right-sided single-lead AICD (Biotronik, 11/04/2024) NSTEMI type II Peripheral vascular disease in the bilateral dorsalis pedis arteries as evidence by monophasic waveforms -Furosemide 40mg d/c 12/08/2024 PULMONARY: Acute on chronic hypoxic respiratory failure COPD Rule out acute exacerbation of COPD Moderate left pleural effusion s/p Thoracentesis Rule out g positive/Gram-negative pneumonia Previous tobacco use, and benign prostatic hyperplasia -cxr showed Small left pleural effusion, left basilar opacity. No Pneumothorax -Respiratory culture showed Rare Gram Positive Rods -Methylprednisolone - Incubation GASTROINTESTINAL: History of Hepatitis C Nausea - Zofran GENITOURINARY: ESRD on HD Sat,, Saturday CR:8.4 - Sevelamir - Epoetin melvin-epbx METABOLIC: Diabetes mellitus Dyslipidemia, Mild Hyponatremia Hypermagnesemia - Monitor electrolytes closely HEMATOLOGY: Anemia due to chronic kidney disease Coaguloapthy - Hgb: 9.4 - D-dimer: 4.16 VASCULAR: Shock possible Cardiac - levophed (HELD>24 hr) INFECTIOUS DISEASE: History of Hepatitis C DIET: Nepro with carbs DVT PROPHYLAX: LOVENOX GI PROPHYLAXIS: PROTONIX BOWEL REGIMEN: CODE STATUS: FULL CODE LINES/DRAINS/ACCESS: IV ACCESS: Right Femoral line on 12/08/2024 DRIPS: Fentanyl and midazolam HELD during CPAP trial, back on low dose PATEL CATHETER: Placed on 12/08/2024 DISPOSITION: [facility] Plan: Cpap trial was not successful, patient had couple of apneic episodes and patient is still drowsy. Consider using Percedex in preparation for extubation. PATIENT'S STATUS DISCUSSED WITH at the bedside CRITICAL CARE TIME SPENT MORE THAN 40 MINUTES. CASE DISCUSSED WITH DR. ESQUIVEL PLAN DISCUSSED WITH: OTHER (RN) Plan discussed with: Spouse Dietary Evaluation Review Comments: 1. TF Nepro Carb Steady @ 45ml/hr. start @ 20ml/hr, increase 10ml/hr Q4H until goal is reached. TF at goal volume provides 100% energy & protein needs - 1944 kcal, 87 gm protein, 785 ml free water 2. Water flush 50ml Q6H 3. TPN if NPO> 7 days Expected Outcomes/Goals: To meet >75% estimated needs Fu 2-3 days NIGHAT SOLANO RESIDENT Dec 11, 2024 15:47
[2024-12-11 15:50] LABS: Base Excess 0.6 mmol/L (-2.0-3.0)
[2024-12-12] VITALS (101 sets, daily range): BP systolic 98–152; BP diastolic 54–81; PULSE 57–118; RESP 10–32; TEMP 96.3–98.5; O2SAT 87–100
[2024-12-12 05:43] LABS: Hematocrit 28.7 % (41.0-53.0); Hemoglobin 9.7 g/dL (13.5-17.5)
[2024-12-12 05:52] LABS: Anion Gap 12 (5-15); Carbon Dioxide 27 mmol/L (20-31); Potassium 4.9 mmol/L (3.5-5.1); Sodium 137 mmol/L (136-145)
[2024-12-12 05:58] LABS: Calcium 10.5 mg/dL (8.7-10.4); Chloride 98 mmol/L (98-107)
[2024-12-12 05:59] LABS: BUN/Creatinine Ratio 7.6 (10.0-20.0); Blood Urea Nitrogen 78 mg/dL (9-23); Glucose 151 mg/dL (74-106)
[2024-12-12 06:50] LABS: Base Excess 1.9 mmol/L (-2.0-3.0)
[2024-12-12] MEDS: SODIUM CHL 0.9% 1000 ML BAG XX ONE (07:30)
--- NOTE | 2024-12-12 12:01 | DVHPN2 ---
Progress Note - Dictate Date Seen: Dec 12, 2024 Has the PT tested + for MRSA If YES, has PT been informed?: No Medical Necessity Reason Pt with a Central, PICC or Fol: Yes The following are medically ne: Central Line Subjective Much more alter Just finished HD vital signs Vital Sign Date Time Temp Pulse Resp B/P (MAP) Pulse Ox O2 Delivery O2 Flow Rate FiO2 12/12/24 10:00 30 12/12/24 10:00 16 100 Mechanical Ventilator+ 12/12/24 10:00 87 12/12/24 09:30 107/54 (71) 12/12/24 08:00 97.0 97.0 Total Intake and Output 12/11/24 12/11/24 12/12/24 15:00 23:00 07:00 Intake Total 122.5 ml 470.0 ml Output Total 25 ml 5 ml Balance 97.5 ml 465.0 ml medications Current Medications Medications Dose Ordered Sig/Edson Route Start Time Stop Time Status Last Admin Dose Admin Sodium Chloride 10 ml Q8HR IV 12/08/24 14:00 12/12/24 06:00 10 ML Ondansetron HCl 4 mg Q4HP PRN IV 12/08/24 09:15 Docusate Sodium 100 mg BIDPRN PRN PO 12/08/24 09:15 Acetaminophen 650 mg Q6HP PRN PO 12/08/24 09:15 Nitroglycerin 0.4 mg Q5MINP PRN SL 12/08/24 09:15 Morphine Sulfate 2 mg Q30M PRN IV 12/08/24 09:15 UNV Morphine Sulfate 2 mg Q30M PRN IV 12/08/24 09:30 Ipratropium [place] 0.5 mg Q6HWA NEB 12/08/24 12:00 12/12/24 11:49 0.5 MG Albuterol 2.5 mg Q6HWA NEB 12/08/24 12:00 12/12/24 11:49 2.5 MG Clopidogrel Bisulfate 75 mg DAILY PO 12/08/24 10:00 12/12/24 10:29 75 MG Ranolazine 500 mg BID PO 12/08/24 10:00 12/09/24 21:53 500 MG Patient Own Medication 1 tab DAILY PO 12/08/24 10:00 UNV Patient Own Medication 1 tab DAILY PO 12/08/24 10:00 UNV Patient Own Medication 1 tab BID PO 12/08/24 10:00 UNV Patient Own Medication 1 tab DAILY PO 12/08/24 10:00 UNV Patient Own Medication 1 tab DAILY PO 12/08/24 10:00 UNV Patient Own Medication 1 tab QID PO 12/08/24 12:00 UNV Sevelamer HCl 1,600 mg TID PO 12/08/24 14:00 12/12/24 06:00 1,600 MG Methylprednisolone Sodium Succinate 40 mg BID IV 12/08/24 10:00 12/12/24 10:29 40 MG Midazolam HCl 50 ml @ 1 mls/hr Q24H IV 12/08/24 10:15 12/11/24 00:44 6 MLS/HR Aspirin 81 mg DAILY PO 12/09/24 10:00 12/12/24 10:28 81 MG Atorvastatin Calcium 40 mg HS PO 12/08/24 22:00 12/11/24 22:48 40 MG Diagnostic Test (Pha) 1 strip Q6HR 12/08/24 18:00 12/12/24 06:00 1 STRIP Insulin Human Regular Q6HR SC 12/08/24 18:00 12/12/24 11:11 2 UNITS Dextrose 50 ml UD PRN IV 12/08/24 12:15 Norepinephrine Bitartrate 32 mg/ Sodium Chloride 250 ml @ 0.938 mls/ hr Q24H IV 12/08/24 15:00 12/08/24 16:06 0.938 MLS/HR Fentanyl Citrate 250 ml @ 2.5 mls/hr Q24H IV 12/08/24 15:45 12/12/24 05:35 12.5 MLS/HR Heparin Sodium (Porcine) 5,000 units Q12HR SC 12/08/24 22:00 12/12/24 10:29 5,000 UNITS Pantoprazole Sodium 40 mg DAILY IV 12/10/24 10:00 12/12/24 10:28 40 MG Enteral Nutritional Formula 1,000 ml 30ML/HR GT 12/10/24 15:00 objective GENERAL: The patient is an elderly -[place] gentleman, who appears to be acutely ill. On top of being chronically ill, he is on mechanical ventilation. HEENT: Otherwise unremarkable. LUNGS: Show diminished air entry at the bases. No crackles, wheezing, or rhonchi. CARDIOVASCULAR: Shows regular rate, 1/6 systolic murmur. ABDOMEN: Soft, mildly distended. Bowel sounds are diminished in intensity and frequency. No abnormalities. No ascites. EXTREMITIES: Show no clubbing or cyanosis. There is no edema. NEUROLOGIC: Exam was not performed. laboratory and microbiology Laboratory Tests 12/12/24 05:00 12/11/24 04:38 Test 12/12/24 05:00 Range/Units Serum Glucose 151 H 74-106 mg/dL Problem List ASSESSMENT AND PLAN: * End-stage renal disease.Stable from renal standpoint, had HD this morning 2.5 L UF * Mild hyponatremia. * Anemia of renal disease. * Congestive heart failure. * Respiratory failure * Severe underlying coronary artery disease. * Pleural effusion s/p thoracentesis Extubate today Next HD on Saturday Dietary Evaluation Review Comments: 1. TF Nepro Carb Steady @ 45ml/hr. start @ 20ml/hr, increase 10ml/hr Q4H until goal is reached. TF at goal volume provides 100% energy & protein needs - 1944 kcal, 87 gm protein, 785 ml free water 2. Water flush 50ml Q6H 3. TPN if NPO> 7 days Expected Outcomes/Goals: To meet >75% estimated needs Fu 2-3 days Plan discussed with: Patient HI WINTER MD Dec 12, 2024 12:01
[2024-12-12 12:17] LABS: Base Excess 3.3 mmol/L (-2.0-3.0)
--- NOTE | 2024-12-12 16:43 | DVHPN2 ---
Subjective Feels better. Reviewed: Care Plan, H&P, Labs, Medications, Previous Orders, Radiology, Other Changes from previous H/P or p: No Changes Objective Vitals Vital Signs Date Time Temp Pulse Resp B/P (MAP) Pulse Ox O2 Delivery O2 Flow Rate FiO2 12/12/24 16:00 13 100 Nasal Cannula* 2 28 12/12/24 16:00 79 12/12/24 15:16 129/69 (89) 12/12/24 12:01 96.3 96.3 Intake/Output Intake and Output 12/12/24 07:00 Intake Total 592.5 ml Output Total 30 ml Balance 562.5 ml Intake Oral 200 ml IV Total 192.5 ml Tube Feeding 200 ml Output Urine Total 30 ml General Appearance: Alert, Oriented X3, Cooperative, mild distress (Status post extubation) HEENT: Atraumatic Lungs: Other (Few crackles bilateral lungs with fair good air entry) Cardiovascular: Regular rate Abdomen: Normal bowel sounds, Soft, No tenderness Extremities: Other (Some bilateral lower extremity edema) Medications Current Medications Medications Dose Ordered Sig/Edson Route Start Time Stop Time Status Last Admin Dose Admin Sodium Chloride 10 ml Q8HR IV 12/08/24 14:00 12/12/24 12:53 10 ML Ondansetron HCl 4 mg Q4HP PRN IV 12/08/24 09:15 Docusate Sodium 100 mg BIDPRN PRN PO 12/08/24 09:15 Acetaminophen 650 mg Q6HP PRN PO 12/08/24 09:15 Nitroglycerin 0.4 mg Q5MINP PRN SL 12/08/24 09:15 Morphine Sulfate 2 mg Q30M PRN IV 12/08/24 09:15 UNV Morphine Sulfate 2 mg Q30M PRN IV 12/08/24 09:30 Ipratropium [place] 0.5 mg Q6HWA NEB 12/08/24 12:00 12/12/24 11:49 0.5 MG Albuterol 2.5 mg Q6HWA NEB 12/08/24 12:00 12/12/24 11:49 2.5 MG Clopidogrel Bisulfate 75 mg DAILY PO 12/08/24 10:00 12/12/24 10:29 75 MG Ranolazine 500 mg BID PO 12/08/24 10:00 12/09/24 21:53 500 MG Patient Own Medication 1 tab DAILY PO 12/08/24 10:00 UNV Patient Own Medication 1 tab DAILY PO 12/08/24 10:00 UNV Patient Own Medication 1 tab BID PO 12/08/24 10:00 UNV Patient Own Medication 1 tab DAILY PO 12/08/24 10:00 UNV Patient Own Medication 1 tab DAILY PO 12/08/24 10:00 UNV Patient Own Medication 1 tab QID PO 12/08/24 12:00 UNV Sevelamer HCl 1,600 mg TID PO 12/08/24 14:00 12/12/24 06:00 1,600 MG Methylprednisolone Sodium Succinate 40 mg BID IV 12/08/24 10:00 12/12/24 10:29 40 MG Midazolam HCl 50 ml @ 1 mls/hr Q24H IV 12/08/24 10:15 12/11/24 00:44 6 MLS/HR Aspirin 81 mg DAILY PO 12/09/24 10:00 12/12/24 10:28 81 MG Atorvastatin Calcium 40 mg HS PO 12/08/24 22:00 12/11/24 22:48 40 MG Diagnostic Test (Pha) 1 strip Q6HR 12/08/24 18:00 12/12/24 12:00 1 STRIP Insulin Human Regular Q6HR SC 12/08/24 18:00 12/12/24 11:11 2 UNITS Dextrose 50 ml UD PRN IV 12/08/24 12:15 Norepinephrine Bitartrate 32 mg/ Sodium Chloride 250 ml @ 0.938 mls/ hr Q24H IV 12/08/24 15:00 12/08/24 16:06 0.938 MLS/HR Fentanyl Citrate 250 ml @ 2.5 mls/hr Q24H IV 12/08/24 15:45 12/12/24 05:35 12.5 MLS/HR Heparin Sodium (Porcine) 5,000 units Q12HR SC 12/08/24 22:00 12/12/24 10:29 5,000 UNITS Pantoprazole Sodium 40 mg DAILY IV 12/10/24 10:00 12/12/24 10:28 40 MG Enteral Nutritional Formula 1,000 ml 30ML/HR GT 12/10/24 15:00 Laboratory Results Laboratory Tests 12/11/24 04:38 12/12/24 05:00 Chemistry Test 12/12/24 05:00 Calcium Level 10.5 mg/dL (8.7-10.4) H Urinalysis Test 12/08/24 12:15 Urine Color Light-yellow (Yellow) Urine Clarity Turbid (Clear) H Urine pH 8.0 (5.0-9.0) Urine Specific [place] 1.013 (1.001-1.035) Urine Protein 2+ (Negative) H Urine Ketones Negative (Negative) Urine Blood 1+ /uL (Negative) H Urine Nitrite Negative (Negative) Urine Bilirubin Negative (Negative) Urine Urobilinogen Normal mg/dL (Negative) Urine Leukocyte Esterase Negative /uL (Negative) Urine RBC 2 /hpf (0 - 3) Urine Microscopic WBC 6 /HPF (0-3) H Urine Squamous Epithelial Cells None seen /hpf (<5) Urine Bacteria Few /hpf (None Seen) H Urine Glucose 1+ mg/dL (Normal) H Blood Gas Results Test 12/12/24 06:42 12/12/24 12:04 Arterial Blood pH 7.450 (7.350-7.450) 7.379 (7.350-7.450) FiO2 % 30.0 30.0 Microbiology Microbiology Date/Time Source Procedure Growth Status 12/08/24 14:30 Pleural Fluid Gram Stain - Final Resulted 12/08/24 14:30 Pleural Fluid Aerobic Culture - Preliminary Resulted 12/08/24 13:00 Nose MRSA Screen - Final Complete 12/08/24 10:13 Sputum Gram Stain - Final Complete 12/08/24 10:13 Sputum Respiratory Culture - Final Complete 12/08/24 06:41 Blood Blood Culture - Preliminary NO GROWTH AFTER 72 HOURS OF INCUBATION. Resulted Assessment/Plan Assessment/Plan Acute respiratory failure with acute on chronic heart failure and pleural effusion Patient extubated today Non-STEMI Coronary artery disease and history of CABG and PTCA Peripheral artery disease End-stage renal disease on hemodialysis COPD Hepatitis-C Diabetes Dyslipidemia Anemia of chronic disease Plan: After reviewing the ABGs this morning we extubated the patient. He is breathing well on his own at this time. Continue monitoring oxygenation and vital signs. repeat labs. Repeat x-ray. Further plan per orders Total critical care time 40 minutes Plan discussed with: Patient, Other (Nursing) My Orders Orders - BERYL BROWN MD Procedure Category Date Status Time Extubate RADHA 12/12/24 In Process 12:36 Oxygen Via Cool Mist RT 6/7/25 Transmitted Mask 12:36 * Swallow Request ST 12/12/24 Transmitted 15:02 Pt Request For Service PT 12/12/24 Logged 15:02 Date of Service: Dec 12, 2024 Billing Provider: BERYL BROWN MD Common Visit Codes: [id number] CARE 30-74 MIN BERYL BROWN MD Dec 12, 2024 16:43
--- NOTE | 2024-12-12 18:14 | DVHINCON2 ---
Date of service: Dec 12, 2024 Referring Physician Sherrell Mary MD [facility] Reason for Consultation Acute hypoxic respiratory failure and pleural effusion History of Present Illness A 74-year-old man with past medical history of COPD on home oxygen, [place], CHF, AICD and cardiac stents, hypertension, hyperlipidemia, diabetes, and ESRD on hemodialysis who was brought to ED on 12/08/24 for chest pain and shortness of breath. Patient developed shortness of breath on Saturday (12/06), worsened Saturday evening, then on the morning of presentation he woke up struggling to breathe and was using accessory muscles, prompting family to call EMS. Patient also had chest pain at that time. EMS gave him a sublingual nitro and his chest pain resolved. Of note, pt was recently admitted in November for fluid in his lungs, had thoracentesis done and was discharged home on 12/03/2024. Patient reports being compliant with his dialysis, and they usually take 2 L off. After patient was seen and admitted, he began having difficulty breathing with increased work of breathing and accessory muscle use and required intubation by the ER physician. Patient is currently s/p extubation. Pulmonary consultation is requested for evaluation and management of acute hypoxic respiratory failure. Review of Systems: 14-point review of systems negative unless otherwise noted above. Past Medical History: COPD on home oxygen, CAD, CHF, hypertension, [place], hyperlipidemia, diabetes, chronic renal failure (on HD T-T-S). Past Surgical History: CABG (January 2024), AICD, PTCA with stent placement Medications: Reviewed. Allergies: No known drug allergies. Family History: Heart disease and cancer. Social History: Nonsmoker. No alcohol or illicit drug use. Family History: FH: cancer G8 MOTHER FH: heart disease G8 FATHER Allergies: Coded Allergies: NO KNOWN ALLERGIES (Unverified , 01/05/24) Home Meds Reported Medications Magnesium Oxide (Magnesium Oxide) 400 Mg Tab, 1 TAB PO DAILY for 90 Days, #90 10/29/24 Meloxicam (Meloxicam) 15 Mg Tab, 1 TAB PO DAILY for 30 Days, #30 10/29/24 Sacubitril-Valsartan (Entresto 24-26 mg) 1 Tab Tab, 1 TAB PO BID for 30 Days, #60 10/29/24 Nitroglycerin (Nitrostat) 0.4 Mg Sub, 1 TAB PO UD for 33 Days, #100 10/29/24 Atorvastatin Calcium (ATORVASTATIN CALCIUM) 40 Mg Tab, 1 TAB PO DAILY for 90 Days, #90 10/29/24 Isosorbide Mononitrate (Isosorbide Mononitrate Er) 30 Mg Tab, 1 TAB PO DAILY for 90 Days, #90 10/29/24 Clopidogrel Bisulfate (CLOPIDOGREL) 75 Mg Tab, 1 TAB PO DAILY for 90 Days, #90 10/29/24 Ranolazine (Ranolazine ER) 500 Mg Tab, 1 TAB PO BID for 30 Days, #60 10/29/24 Furosemide (Furosemide) 40 Mg Tab, 1 TAB PO DAILY for 90 Days, #90 01/07/24 Ergocalciferol (Vitamin D) 50,000 Unit Cap, 1 CAP PO QWEEKLY 01/07/24 Omeprazole (Omeprazole Dr) 40 Mg Cap, 1 CAP PO DAILY for 90 Days, #90 01/07/24 Aspirin (Aspirin Low Dose) 81 Mg Chw, 1 TAB PO DAILY 01/07/24 Sevelamer Carbonate (Renvela) 800 Mg Tab, 2 TAB PO TID 01/07/24 Carvedilol (Carvedilol) 25 Mg Tab, 1 TAB PO BID for 90 Days, #180 01/07/24 Oxycodone HCl (Oxycodone Hydrochloride) 15 Mg Tab, 1 TAB PO QID for 30 Days, #120 01/07/24 Discontinued Reported Medications Nifedipine (Nifedipine Er) 90 Mg Tab, 1 TAB PO DAILY for 30 Days, #30 10/29/24 Discontinued Scripts Levofloxacin Hemihydrate (LEVOFLOXACIN) 750 Mg Tab, 1 TAB PO DAILY, #5 TAB Prov:SHERRELL MARY RESIDENT 12/03/24 Doxycycline Hyclate (DOXYCYCLINE HYCLATE) 100 Mg Tab, 1 TAB PO BID for 7 Days, #14 TAB Prov:CRAIG NAZARIO MD 11/05/24 Hydrocodone-Acetaminophen (Hydrocodone/Acetaminophen 5-325 mg) 1 Tab Tab, 1 TAB PO TIDP PRN for 6 Days, #18 TAB Prov:CRAIG NAZARIO MD 11/05/24 Vital Signs Vital Signs Date Time Temp Pulse Resp B/P (MAP) Pulse Ox O2 Delivery O2 Flow Rate FiO2 12/12/24 18:00 13 100 Nasal Cannula* 2 28 12/12/24 18:00 85 12/12/24 18:00 142/70 (94) 12/12/24 16:01 97.9 97.9 Physical Exam Gen.: Patient lying in bed in no apparent distress. On supplemental oxygen. Head: Normocephalic, atraumatic. Eyes: EOMI/PERRLA. Ears: Normal hearing. Normal anatomy. Neck/trachea: Trachea midline, supple. Nose: Normal external anatomy. Mouth: Moist mucous membranes. Chest: Decreased air entry bilaterally. No wheezing or rhonchi. Cardiovascular: Positive S1, positive S2. Regular rate and rhythm. Abdomen: Positive bowel sounds in all 4 quadrants. Soft, non-tender, non- distended. : Deferred. Rectal: Deferred. Skin: Warm, dry. Intact. Extremities: 2+ radial pulses bilaterally. No lower extremity edema. Neuro: Awake, alert, oriented x3. No gross motor or sensory deficits. Cranial nerves II through XII intact. Gait not assessed. Labs/Diagnostic Data Labs Test 12/12/24 17:45 12/12/24 12:04 12/12/24 06:42 12/12/24 05:00 Range/Units POC Glucose 143 H 70-106 mg/dl Blood Gas Specimen Type Arterial Blood Gas Sample Site Right radial Blood Gas Patient Temperature 37.0 Arterial Blood Date Drawn [id number] Arterial Blood pH 7.379 7.350-7.450 Arterial Blood Partial Pressure CO2 50.8 H 35.0-48.0 mmHg Arterial Blood Partial Pressure O2 107.8 83.0-108.0 mmHg Arterial Blood HCO3 29.3 H 21.0-28.0 mmol/L Arterial Blood Oxygen Saturation 96.9 94.0-98.0 % Arterial Blood Base Excess 3.3 H -2.0-3.0 mmol/L Arterial Blood Oxyhemoglobin 96.1 94.0-98.0 % Arterial Blood Carboxyhemoglobin 0.5 0.5-1.5 % Arterial Blood Methemoglobin 0.3 0.0-1.5 % Max Test Modified Blood Gas Total Hemoglobin 12.00 L 13.5-17.5 g/dL Blood Gas Modality Vent - cpap FiO2 % 30.0 Blood Gas Pressure Support 8 Blood Gas PEEP or CPAP 5.0 Blood Gas Set Respiration Rate 16.0 Blood Gas Tidal Volume 500.0 Hemoglobin 9.7 L 13.5-17.5 g/dL Hematocrit 28.7 L 41.0-53.0 % Sodium Level 137 136-145 mmol/L Potassium Level 4.9 3.5-5.1 mmol/L Chloride Level 98 98-107 mmol/L Carbon Dioxide Level 27 20-31 mmol/L Anion Gap 12 5-15 Blood Urea Nitrogen 78 #H 9-23 mg/dL Creatinine 10.27 *H 0.700-1.30 mg/dL Glomerular Filtration Rate Calc 5 >90 mL/min BUN/Creatinine Ratio 7.6 L 10.0-20.0 Serum Glucose 151 H 74-106 mg/dL Calcium Level 10.5 H 8.7-10.4 mg/dL Test 12/11/24 04:38 12/10/24 03:50 12/09/24 04:53 12/08/24 14:30 Range/Units White Blood Count 4.8 4.4-10.8 10^3/uL Red Blood Count 2.86 L 4.5-5.90 10^6/uL Mean Corpuscular Volume 95.2 80.0-100.0 fL Mean Corpuscular Hemoglobin 32.8 H 28.0-32.0 pg Mean Corpuscular Hemoglobin Concent 34.4 32.0-36.0 g/dL Red Cell Distribution Width 14.1 11.8-14.3 % Platelet Count 207 140-450 10^3/uL Mean Platelet Volume 7.2 6.9-10.8 fL Neutrophils (%) (Auto) 89.8 H 37.0-80.0 % Lymphocytes (%) (Auto) 4.6 L 10.0-50.0 % Monocytes (%) (Auto) 5.6 0.0-12.0 % Eosinophils (%) (Auto) 0.0 0.0-7.0 % Basophils (%) (Auto) 0.0 0.0-2.0 % Neutrophils # (Auto) 4.3 1.6-8.6 10 ^3/uL Lymphocytes # (Auto) 0.2 L 0.4-5.4 10 ^3/uL Monocytes # (Auto) 0.3 0-1.3 10 ^3/uL Eosinophils # (Auto) 0 0-0.8 10 ^3/uL Basophils # (Auto) 0 0-0.2 10 ^3/uL Nucleated Red Blood Cells 0.2 % Magnesium Level 2.7 H 1.6-2.6 mg/dL Total Bilirubin 0.2 0.2-1.0 mg/dL Aspartate Amino Transferase (AST) 20 13-40 U/L Alanine Aminotransferase (ALT) 18 7-40 U/L Alkaline Phosphatase 55 46-116 U/L Total Protein 6.4 5.7-8.2 g/dL Albumin 3.4 3.2-4.8 g/dL Troponin I High Sensitivity 769 *H </=54 ng/L Body Fluid Source Pleural fluid Body Fluid pH 8.0 Body Fluid WBC (Manual) 300 H 0-200 CUMM Body Fluid RBC (Manual) 58519 H 0-2000 CUMM Body Fluid Mononuclear Cells 80 % Body Fluid Polymorphonuclear Cells 20 0-25 % Test 12/08/24 13:18 12/08/24 12:15 12/08/24 12:04 12/08/24 09:10 Range/Units D-Dimer, Quantitative 4.16 H 0.0-0.49 mg/L FEU Urine Color Light-yellow Yellow Urine Clarity Turbid H Clear Urine pH 8.0 5.0-9.0 Urine Specific [place] 1.013 1.001-1.035 Urine Protein 2+ H Negative Urine Ketones Negative Negative Urine Blood 1+ H Negative /uL Urine Nitrite Negative Negative Urine Bilirubin Negative Negative Urine Urobilinogen Normal Negative mg/dL Urine Leukocyte Esterase Negative Negative /uL Urine RBC 2 0 - 3 /hpf Urine Microscopic WBC 6 H 0-3 /HPF Urine Squamous Epithelial Cells None seen <5 /hpf Urine Bacteria Few H None Seen /hpf Urine Glucose 1+ H Normal mg/dL Blood Gas Critical Value Read Back Yes Blood Gas Notified Whom Augie nicole Blood Gas Notified Time [id number] Blood Gas Notified By Stephanie grewal Lactic Acid Level 1.5 0.4-2.0 mmol/L Test 12/08/24 06:10 Range/Units B-Type Natriuretic Peptide > 5000.00 0-100 pg/mL Microbiology Date/Time Source Procedure Growth Status 12/08/24 14:30 Pleural Fluid Gram Stain - Final Resulted 12/08/24 14:30 Pleural Fluid Aerobic Culture - Preliminary Resulted 12/08/24 13:00 Nose MRSA Screen - Final Complete 12/08/24 10:13 Sputum Gram Stain - Final Complete 12/08/24 10:13 Sputum Respiratory Culture - Final Complete 12/08/24 06:41 Blood Blood Culture - Preliminary NO GROWTH AFTER 72 HOURS OF INCUBATION. Resulted Assessment Impression: Acute hypoxic respiratory failure Mechanical ventilation, s/p extubation Pleural effusion Atelectasis Congestive heart failure End-stage renal disease, on hemodialysis Plan: Patient tolerated CPAP and was extubated uneventfully Continue supplemental oxygen Titrate to keep O2 sats above 90%. Continue bronchodilators Continue IV steroids Incentive spirometry Follow up Cardiology recommendations Swallow eval PT eval. Accu-Cheks, ISS. HD per Nephrology Monitor renal function. Monitor electrolytes. Supplement as necessary. Monitor ins and outs. GI prophylaxis - Protonix DVT prophylaxis - Heparin SC Prognosis: Poor given patient's multiple co-morbidities. Rest of plan per hospitalist and other consultants. Thank you, Dr. Mary, for allowing me to participate in this patient's care. Further recommendations will depend on the patient's clinical course. Please do not hesitate to contact me if you have any questions or concerns. This medical document was created using an electronic medical record system with [employer] dictation system. Although these documentations are being carefully reviewed, there may still be some phonetic and typographical changes. The errors are purely typographical, due to imperfection on the software program, and do not reflect any compromise in the patient's medical care. Plan discussed with: Other (JADA Dillard/Dr. Mary) SHREYAS LI MD Dec 12, 2024 18:14
[2024-12-12] MEDS: EPOETIN ALFA-EPBX 10,000 UNIT/1ML VIAL SC ONE (21:43)
[2024-12-13] VITALS (33 sets, daily range): BP systolic 135–160; BP diastolic 62–98; PULSE 66–100; RESP 14–20; TEMP 97.6–98.5; O2SAT 21–100
[2024-12-13 05:13] LABS: Alanine Aminotransferase 17 U/L (7-40); Albumin 3.7 g/dL (3.2-4.8); Alkaline Phosphatase 79 U/L (46-116); Anion Gap 13 (5-15); Aspartate Aminotransferase 21 U/L (13-40); BUN/Creatinine Ratio 7.9 (10.0-20.0); Carbon Dioxide 30 mmol/L (20-31); Sodium 137 mmol/L (136-145); Total Protein 6.7 g/dL (5.7-8.2)
[2024-12-13 05:26] LABS: Bilirubin, Total 0.2 mg/dL (0.2-1.0); Blood Urea Nitrogen 70 mg/dL (9-23); Calcium 10.5 mg/dL (8.7-10.4); Chloride 94 mmol/L (98-107); Glucose 118 mg/dL (74-106); Potassium 5.4 mmol/L (3.5-5.1)
--- NOTE | 2024-12-13 06:14 | DVH ---
CHEST RADIOGRAPH Indication: fu Technique: Single frontal view of the chest was obtained COMPARISON: XY CHEST PORTABLE on DOS: 12/11/24, XY CHEST PORTABLE on DOS: 12/10/24, XY CHEST PORTABLE on DOS: 12/09/24, XY CHEST XRAY 1 VIEW on DOS: 12/08/24, XY CHEST XRAY 1 VIEW on DOS: 12/08/24 FINDINGS: Lines and Tubes: Status post interval extubation and removal of enteric catheter. Cardiac pacing tariq ce redemonstrated. Lungs: Grossly stable appearing left basilar pulmonary airspace disease and probable small left pleur al effusion. No pneumothorax. Cardiomediastinal contours: Unremarkable. Median sternotomy sutures. Bones: Unremarkable IMPRESSION: 1. Stable appearing left basilar pulmonary airspace disease and probable small left pleural effusion. 2. Status post interval extubation and removal of enteric catheter.
--- NOTE | 2024-12-13 10:17 | DVHPN2 ---
Progress Note - Dictate Date Seen: Dec 13, 2024 Has the PT tested + for MRSA If YES, has PT been informed?: No Medical Necessity Reason Pt with a Central, PICC or Fol: Yes The following are medically ne: Central Line Subjective No new complaints vital signs Vital Sign Date Time Temp Pulse Resp B/P (MAP) Pulse Ox O2 Delivery O2 Flow Rate FiO2 12/13/24 07:00 74 17 135/63 (87) 100 12/13/24 06:03 Nasal Cannula 2.0 12/13/24 06:03 28 12/13/24 04:00 97.9 97.9 Total Intake and Output 12/12/24 12/12/24 12/13/24 15:00 23:00 07:00 Intake Total 15.0 ml 300 ml Output Total 250 ml 10 ml Balance 15.0 ml -250 ml 290 ml medications Current Medications Medications Dose Ordered Sig/Edson Route Start Time Stop Time Status Last Admin Dose Admin Sodium Chloride 10 ml Q8HR IV 12/08/24 14:00 12/13/24 06:28 10 ML Ondansetron HCl 4 mg Q4HP PRN IV 12/08/24 09:15 Docusate Sodium 100 mg BIDPRN PRN PO 12/08/24 09:15 Acetaminophen 650 mg Q6HP PRN PO 12/08/24 09:15 Nitroglycerin 0.4 mg Q5MINP PRN SL 12/08/24 09:15 Morphine Sulfate 2 mg Q30M PRN IV 12/08/24 09:15 UNV Morphine Sulfate 2 mg Q30M PRN IV 12/08/24 09:30 Ipratropium [place]by 0.5 mg Q6HWA NEB 12/08/24 12:00 12/13/24 06:03 0.5 MG Albuterol 2.5 mg Q6HWA NEB 12/08/24 12:00 12/13/24 06:03 2.5 MG Clopidogrel Bisulfate 75 mg DAILY PO 12/08/24 10:00 12/13/24 09:32 75 MG Ranolazine 500 mg BID PO 12/08/24 10:00 12/13/24 09:32 500 MG Patient Own Medication 1 tab DAILY PO 12/08/24 10:00 UNV Patient Own Medication 1 tab DAILY PO 12/08/24 10:00 UNV Patient Own Medication 1 tab BID PO 12/08/24 10:00 UNV Patient Own Medication 1 tab DAILY PO 12/08/24 10:00 UNV Patient Own Medication 1 tab DAILY PO 12/08/24 10:00 UNV Patient Own Medication 1 tab QID PO 12/08/24 12:00 UNV Sevelamer HCl 1,600 mg TID PO 12/08/24 14:00 12/13/24 06:28 1,600 MG Methylprednisolone Sodium Succinate 40 mg BID IV 12/08/24 10:00 12/13/24 09:34 40 MG Midazolam HCl 50 ml @ 1 mls/hr Q24H IV 12/08/24 10:15 12/11/24 00:44 6 MLS/HR Aspirin 81 mg DAILY PO 12/09/24 10:00 12/13/24 09:32 81 MG Atorvastatin Calcium 40 mg HS PO 12/08/24 22:00 12/12/24 21:44 40 MG Diagnostic Test (Pha) 1 strip Q6HR 12/08/24 18:00 12/13/24 06:08 1 STRIP Insulin Human Regular Q6HR SC 12/08/24 18:00 12/13/24 06:30 2 UNITS Dextrose 50 ml UD PRN IV 12/08/24 12:15 Norepinephrine Bitartrate 32 mg/ Sodium Chloride 250 ml @ 0.938 mls/ hr Q24H IV 12/08/24 15:00 12/08/24 16:06 0.938 MLS/HR Fentanyl Citrate 250 ml @ 2.5 mls/hr Q24H IV 12/08/24 15:45 12/12/24 05:35 12.5 MLS/HR Heparin Sodium (Porcine) 5,000 units Q12HR SC 12/08/24 22:00 12/13/24 09:34 5,000 UNITS Pantoprazole Sodium 40 mg DAILY IV 12/10/24 10:00 12/13/24 09:32 40 MG Enteral Nutritional Formula 1,000 ml 30ML/HR GT 12/10/24 15:00 objective Alert, NAD HEENT: Otherwise unremarkable. LUNGS: Show diminished air entry at the bases. No crackles, wheezing, or rhonchi. CARDIOVASCULAR: Shows regular rate, 1/6 systolic murmur. ABDOMEN: Soft, mildly distended. Bowel sounds are diminished in intensity and frequency. No abnormalities. No ascites. EXTREMITIES: Show no clubbing or cyanosis. There is no edema. NEUROLOGIC: Exam was not performed. laboratory and microbiology Laboratory Tests 12/13/24 04:37 12/12/24 05:00 12/11/24 04:38 Test 12/13/24 04:37 Range/Units Serum Glucose 118 H 74-106 mg/dL Problem List ASSESSMENT AND PLAN: * End-stage renal disease.Stable from renal standpoint, had HD this morning 2.5 L UF * Mild hyperkalemia today * Anemia of renal disease. * Congestive heart failure. * Respiratory failure * Severe underlying coronary artery disease. * Pleural effusion s/p thoracentesis HD tomorrow Lokelma 10 g PO x 1 today Dietary Evaluation Review Comments: 1. TF Nepro Carb Steady @ 45ml/hr. start @ 20ml/hr, increase 10ml/hr Q4H until goal is reached. TF at goal volume provides 100% energy & protein needs - 1944 kcal, 87 gm protein, 785 ml free water 2. Water flush 50ml Q6H 3. TPN if NPO> 7 days Expected Outcomes/Goals: To meet >75% estimated needs Fu 2-3 days Plan discussed with: Patient HI WINTER MD Dec 13, 2024 10:17
[2024-12-13] MEDS: SODIUM ZIRCONIUM CYCL 10 GM PAK PO ONE (10:44)
--- NOTE | 2024-12-13 15:47 | DVHPN2 ---
Subjective Extubated yesterday. Feels better. No events overnight. Reviewed: Care Plan, H&P, Labs, Medications, Previous Orders, Radiology, Other Changes from previous H/P or p: No Changes Objective Vitals Vital Signs Date Time Temp Pulse Resp B/P (MAP) Pulse Ox O2 Delivery O2 Flow Rate FiO2 12/13/24 14:00 76 18 138/64 (88) 100 12/13/24 14:00 Nasal Cannula* 2 28 12/13/24 12:00 98.0 98.0 Intake/Output Intake and Output 12/13/24 07:00 Intake Total 315.0 ml Output Total 260 ml Balance 55.0 ml Intake Oral 300 ml IV Total 15.0 ml Output Urine Total 260 ml General Appearance: Alert, Oriented X3, Cooperative, mild distress (Status post extubation) HEENT: Atraumatic Lungs: Other (Few crackles bilateral lungs with fair good air entry) Cardiovascular: Regular rate Abdomen: Normal bowel sounds, Soft, No tenderness Extremities: Other (Some bilateral lower extremity edema) Medications Current Medications Medications Dose Ordered Sig/Edson Route Start Time Stop Time Status Last Admin Dose Admin Sodium Chloride 10 ml Q8HR IV 12/08/24 14:00 12/13/24 13:35 10 ML Ondansetron HCl 4 mg Q4HP PRN IV 12/08/24 09:15 Docusate Sodium 100 mg BIDPRN PRN PO 12/08/24 09:15 Acetaminophen 650 mg Q6HP PRN PO 12/08/24 09:15 Nitroglycerin 0.4 mg Q5MINP PRN SL 12/08/24 09:15 Morphine Sulfate 2 mg Q30M PRN IV 12/08/24 09:15 UNV Morphine Sulfate 2 mg Q30M PRN IV 12/08/24 09:30 Ipratropium [place] 0.5 mg Q6HWA NEB 12/08/24 12:00 12/13/24 11:55 0.5 MG Albuterol 2.5 mg Q6HWA NEB 12/08/24 12:00 12/13/24 11:55 2.5 MG Clopidogrel Bisulfate 75 mg DAILY PO 12/08/24 10:00 12/13/24 09:32 75 MG Ranolazine 500 mg BID PO 12/08/24 10:00 12/13/24 09:32 500 MG Patient Own Medication 1 tab DAILY PO 12/08/24 10:00 UNV Patient Own Medication 1 tab DAILY PO 12/08/24 10:00 UNV Patient Own Medication 1 tab BID PO 12/08/24 10:00 UNV Patient Own Medication 1 tab DAILY PO 12/08/24 10:00 UNV Patient Own Medication 1 tab DAILY PO 12/08/24 10:00 UNV Patient Own Medication 1 tab QID PO 12/08/24 12:00 UNV Sevelamer HCl 1,600 mg TID PO 12/08/24 14:00 12/13/24 13:35 1,600 MG Methylprednisolone Sodium Succinate 40 mg BID IV 12/08/24 10:00 12/13/24 09:34 40 MG Midazolam HCl 50 ml @ 1 mls/hr Q24H IV 12/08/24 10:15 12/11/24 00:44 6 MLS/HR Aspirin 81 mg DAILY PO 12/09/24 10:00 12/13/24 09:32 81 MG Atorvastatin Calcium 40 mg HS PO 12/08/24 22:00 12/12/24 21:44 40 MG Diagnostic Test (Pha) 1 strip Q6HR 12/08/24 18:00 12/13/24 12:00 1 STRIP Insulin Human Regular Q6HR SC 12/08/24 18:00 12/13/24 06:30 2 UNITS Dextrose 50 ml UD PRN IV 12/08/24 12:15 Norepinephrine Bitartrate 32 mg/ Sodium Chloride 250 ml @ 0.938 mls/ hr Q24H IV 12/08/24 15:00 12/08/24 16:06 0.938 MLS/HR Fentanyl Citrate 250 ml @ 2.5 mls/hr Q24H IV 12/08/24 15:45 12/12/24 05:35 12.5 MLS/HR Heparin Sodium (Porcine) 5,000 units Q12HR SC 12/08/24 22:00 12/13/24 09:34 5,000 UNITS Pantoprazole Sodium 40 mg DAILY IV 12/10/24 10:00 12/13/24 09:32 40 MG Enteral Nutritional Formula 1,000 ml 30ML/HR GT 12/10/24 15:00 Laboratory Results Laboratory Tests 12/11/24 04:38 12/12/24 05:00 12/13/24 04:37 Chemistry Test 12/13/24 04:37 Albumin 3.7 g/dL (3.2-4.8) Calcium Level 10.5 mg/dL (8.7-10.4) H Total Protein 6.7 g/dL (5.7-8.2) Cardiac Markers Test 12/13/24 04:37 B-Type Natriuretic Peptide 2819.90 pg/mL (0-100) LFT Test 12/13/24 04:37 Alanine Aminotransferase (ALT) 17 U/L (7-40) Alkaline Phosphatase 79 U/L (46-116) Aspartate Amino Transferase (AST) 21 U/L (13-40) Total Bilirubin 0.2 mg/dL (0.2-1.0) Urinalysis Test 12/08/24 12:15 Urine Color Light-yellow (Yellow) Urine Clarity Turbid (Clear) H Urine pH 8.0 (5.0-9.0) Urine Specific [place] 1.013 (1.001-1.035) Urine Protein 2+ (Negative) H Urine Ketones Negative (Negative) Urine Blood 1+ /uL (Negative) H Urine Nitrite Negative (Negative) Urine Bilirubin Negative (Negative) Urine Urobilinogen Normal mg/dL (Negative) Urine Leukocyte Esterase Negative /uL (Negative) Urine RBC 2 /hpf (0 - 3) Urine Microscopic WBC 6 /HPF (0-3) H Urine Squamous Epithelial Cells None seen /hpf (<5) Urine Bacteria Few /hpf (None Seen) H Urine Glucose 1+ mg/dL (Normal) H Microbiology Microbiology Date/Time Source Procedure Growth Status 12/08/24 14:30 Pleural Fluid Gram Stain - Final Complete 12/08/24 14:30 Pleural Fluid Aerobic Culture - Final Complete 12/08/24 13:00 Nose MRSA Screen - Final Complete 12/08/24 10:13 Sputum Gram Stain - Final Complete 12/08/24 10:13 Sputum Respiratory Culture - Final Complete 12/08/24 06:41 Blood Blood Culture - Final NO GROWTH AFTER 5 DAYS OF INCUBATION. Complete Assessment/Plan Assessment/Plan Acute respiratory failure with acute on chronic heart failure and pleural effusion Patient extubated today Non-STEMI Coronary artery disease and history of CABG and PTCA Peripheral artery disease End-stage renal disease on hemodialysis COPD Hepatitis-C Diabetes Dyslipidemia Anemia of chronic disease Plan: 12/12/2024: After reviewing the ABGs this morning we extubated the patient. He is breathing well on his own at this time. Continue monitoring oxygenation and vital signs. repeat labs. Repeat x-ray. Further plan per orders Total critical care time 40 minutes. 12/13/2024: Patient stable. No overnight events. We will be transferred to telemetry with same orders. Plan discussed with: Patient, Other (Nursing) My Orders Orders - BERYL BROWN MD Procedure Category Date Status Time Chest Portable XY 12/13/24 Resulted 06:00 Advance Diet As RADHA 12/12/24 In Process Tolerated 18:41 Renal DIET 12/13/24 Transmitted Standard(2gna,3gk,Lopho) Breakfast Transfer Orders XFER 12/13/24 Transmitted 15:14 Date of Service: Dec 13, 2024 Billing Provider: BERYL BROWN MD Common Visit Codes: [id number] INP/OBS CARE(HIGH) BERYL BROWN MD Dec 13, 2024 15:47
--- NOTE | 2024-12-13 19:45 | DVHPN2 ---
Progress Note - Dictate Date Seen: Dec 13, 2024 Has the PT tested + for MRSA If YES, has PT been informed?: No Medical Necessity Reason Pt with a Central, PICC or Fol: Yes The following are medically ne: Central Line, Armenta Catheter Reason for armenta catheter: Strict I&O Subjective [facility] Patient seen and examined at bedside. Remains on supplemental oxygen Overnight events reviewed. vital signs Vital Sign Date Time Temp Pulse Resp B/P (MAP) Pulse Ox O2 Delivery O2 Flow Rate FiO2 12/13/24 18:15 97.6 80 154/98 (116) 97.6 12/13/24 18:15 18 96 Nasal Cannula* 2 28 Total Intake and Output 12/12/24 12/12/24 12/13/24 15:00 23:00 07:00 Intake Total 15.0 ml 300 ml Output Total 250 ml 10 ml Balance 15.0 ml -250 ml 290 ml medications Current Medications Medications Dose Ordered Sig/Edson Route Start Time Stop Time Status Last Admin Dose Admin Sodium Chloride 10 ml Q8HR IV 12/08/24 14:00 12/13/24 13:35 10 ML Ondansetron HCl 4 mg Q4HP PRN IV 12/08/24 09:15 Docusate Sodium 100 mg BIDPRN PRN PO 12/08/24 09:15 Acetaminophen 650 mg Q6HP PRN PO 12/08/24 09:15 Nitroglycerin 0.4 mg Q5MINP PRN SL 12/08/24 09:15 Morphine Sulfate 2 mg Q30M PRN IV 12/08/24 09:15 UNV Morphine Sulfate 2 mg Q30M PRN IV 12/08/24 09:30 Ipratropium [place] 0.5 mg Q6HWA NEB 12/08/24 12:00 12/13/24 19:37 0.5 MG Albuterol 2.5 mg Q6HWA NEB 12/08/24 12:00 12/13/24 19:37 2.5 MG Clopidogrel Bisulfate 75 mg DAILY PO 12/08/24 10:00 12/13/24 09:32 75 MG Ranolazine 500 mg BID PO 12/08/24 10:00 12/13/24 09:32 500 MG Patient Own Medication 1 tab DAILY PO 12/08/24 10:00 UNV Patient Own Medication 1 tab DAILY PO 12/08/24 10:00 UNV Patient Own Medication 1 tab BID PO 12/08/24 10:00 UNV Patient Own Medication 1 tab DAILY PO 12/08/24 10:00 UNV Patient Own Medication 1 tab DAILY PO 12/08/24 10:00 UNV Patient Own Medication 1 tab QID PO 12/08/24 12:00 UNV Sevelamer HCl 1,600 mg TID PO 12/08/24 14:00 12/13/24 13:35 1,600 MG Methylprednisolone Sodium Succinate 40 mg BID IV 12/08/24 10:00 12/13/24 09:34 40 MG Midazolam HCl 50 ml @ 1 mls/hr Q24H IV 12/08/24 10:15 12/11/24 00:44 6 MLS/HR Aspirin 81 mg DAILY PO 12/09/24 10:00 12/13/24 09:32 81 MG Atorvastatin Calcium 40 mg HS PO 12/08/24 22:00 12/12/24 21:44 40 MG Diagnostic Test (Pha) 1 strip Q6HR 12/08/24 18:00 12/13/24 17:34 1 STRIP Insulin Human Regular Q6HR SC 12/08/24 18:00 12/13/24 17:35 4 UNITS Dextrose 50 ml UD PRN IV 12/08/24 12:15 Norepinephrine Bitartrate 32 mg/ Sodium Chloride 250 ml @ 0.938 mls/ hr Q24H IV 12/08/24 15:00 12/08/24 16:06 0.938 MLS/HR Fentanyl Citrate 250 ml @ 2.5 mls/hr Q24H IV 12/08/24 15:45 12/12/24 05:35 12.5 MLS/HR Heparin Sodium (Porcine) 5,000 units Q12HR SC 12/08/24 22:00 12/13/24 09:34 5,000 UNITS Pantoprazole Sodium 40 mg DAILY IV 12/10/24 10:00 12/13/24 09:32 40 MG Enteral Nutritional Formula 1,000 ml 30ML/HR GT 12/10/24 15:00 objective Gen.: Patient lying in bed in no apparent distress. On supplemental oxygen. Head: Normocephalic, atraumatic. Eyes: EOMI/PERRLA. Ears: Normal hearing. Normal anatomy. Neck/trachea: Trachea midline, supple. Nose: Normal external anatomy. Mouth: Moist mucous membranes. Chest: Decreased air entry bilaterally. No wheezing or rhonchi. Cardiovascular: Positive S1, positive S2. Regular rate and rhythm. Abdomen: Positive bowel sounds in all 4 quadrants. Soft, non-tender, non- distended. : Deferred. Rectal: Deferred. Skin: Warm, dry. Intact. Extremities: 2+ radial pulses bilaterally. No lower extremity edema. Neuro: Awake, alert, oriented x3. No gross motor or sensory deficits. Cranial nerves II through XII intact. Gait not assessed. laboratory and microbiology Laboratory Tests 12/13/24 04:37 12/12/24 05:00 12/11/24 04:38 Test 12/13/24 04:37 Range/Units Serum Glucose 118 H 74-106 mg/dL Assessment/Plan Impression: Acute hypoxic respiratory failure Pleural effusion Atelectasis Congestive heart failure End-stage renal disease, on hemodialysis Events: Remains on supplemental oxygen, 2 LPM NC Taper O2 as tolerated No overnight events. Continue bronchodilators Continue IV steroids Incentive spirometry Monitor renal function. Monitor electrolytes. Supplement as necessary. Hyperkalemia - Hyperkalemia protocol, [facility] Hemodialysis scheduled for tomorrow. Follow up Nephrology recommendations Head of bed elevation Aspiration precautions. Monitor closely Patient is stable from the pulmonary standpoint for downgrade to telemetry. Labs and imaging reviewed. Rest of plan as noted below. Plan: Patient is s/p extubation on 12/12/24 Continue supplemental oxygen Titrate to keep O2 sats above 92%. Continue bronchodilators Continue IV steroids Incentive spirometry Follow up Cardiology recommendations Swallow eval PT eval. Accu-Cheks, ISS. HD per Nephrology Monitor renal function. Monitor electrolytes. Supplement as necessary. Monitor ins and outs. GI prophylaxis - Protonix DVT prophylaxis - Heparin SC Prognosis: Poor given patient's multiple co-morbidities. Rest of plan per hospitalist and other consultants. Thank you, Dr. Mary, for allowing me to participate in this patient's care. Further recommendations will depend on the patient's clinical course. Please do not hesitate to contact me if you have any questions or concerns. This medical document was created using an electronic medical record system with [employer] dictation system. Although these documentations are being carefully reviewed, there may still be some phonetic and typographical changes. The errors are purely typographical, due to imperfection on the software program, and do not reflect any compromise in the patient's medical care. Dietary Evaluation Review Comments: 1. TF Nepro Carb Steady @ 45ml/hr. start @ 20ml/hr, increase 10ml/hr Q4H until goal is reached. TF at goal volume provides 100% energy & protein needs - 1944 kcal, 87 gm protein, 785 ml free water 2. Water flush 50ml Q6H 3. TPN if NPO> 7 days Expected Outcomes/Goals: To meet >75% estimated needs Fu 2-3 days Plan discussed with: Patient, Other (RN) SHREYAS LI MD Dec 13, 2024 19:45
[2024-12-14] VITALS (17 sets, daily range): BP systolic 119–162; BP diastolic 70–89; PULSE 71–101; RESP 16–19; TEMP 97.7–98.1; O2SAT 94–100
[2024-12-14] MEDS ORDERED: SODIUM CHL 0.9% 1000 ML BAG XX ONE (07:00)
--- NOTE | 2024-12-14 11:25 | DVHPN2 ---
Progress Note Date Seen: Dec 14, 2024 Has the PT tested + for MRSA If YES, has PT been informed?: No Medical Necessity Reason Pt with a Central, PICC or Fol: Yes The following are medically ne: Central Line, Armenta Catheter Reason for armenta catheter: Strict I&O Subjective Patient reports: No new complaints Review of Systems: HEENT:Normal, CVS:Normal, RESPIRATORY:Normal, GI:Normal, :Normal, MSK:Normal, NEURO:Normal Objective vital signs Vital Sign Date Time Temp Pulse Resp B/P (MAP) Pulse Ox O2 Delivery O2 Flow Rate FiO2 12/14/24 11:11 83 18 100 12/14/24 11:01 Nasal Cannula* 1 24 12/14/24 09:00 97.8 162/79 (106) 97.8 Total Intake and Output 12/13/24 12/13/24 12/14/24 15:00 23:00 07:00 Intake Total 360 ml 240 ml 200 ml Output Total 50 ml Balance 360 ml 240 ml 150 ml medications Current Medications Medications Dose Ordered Sig/Edson Route Start Time Stop Time Status Last Admin Dose Admin Sodium Chloride 10 ml Q8HR IV 12/08/24 14:00 12/14/24 06:48 10 ML Ondansetron HCl 4 mg Q4HP PRN IV 12/08/24 09:15 Docusate Sodium 100 mg BIDPRN PRN PO 12/08/24 09:15 Acetaminophen 650 mg Q6HP PRN PO 12/08/24 09:15 Nitroglycerin 0.4 mg Q5MINP PRN SL 12/08/24 09:15 Morphine Sulfate 2 mg Q30M PRN IV 12/08/24 09:15 UNV Morphine Sulfate 2 mg Q30M PRN IV 12/08/24 09:30 Ipratropium [place] 0.5 mg Q6HWA NEB 12/08/24 12:00 12/14/24 11:01 0.5 MG Albuterol 2.5 mg Q6HWA NEB 12/08/24 12:00 12/14/24 11:01 2.5 MG Clopidogrel Bisulfate 75 mg DAILY PO 12/08/24 10:00 12/13/24 09:32 75 MG Ranolazine 500 mg BID PO 12/08/24 10:00 12/13/24 22:45 500 MG Patient Own Medication 1 tab DAILY PO 12/08/24 10:00 UNV Patient Own Medication 1 tab DAILY PO 12/08/24 10:00 UNV Patient Own Medication 1 tab BID PO 12/08/24 10:00 UNV Patient Own Medication 1 tab DAILY PO 12/08/24 10:00 UNV Patient Own Medication 1 tab DAILY PO 12/08/24 10:00 UNV Patient Own Medication 1 tab QID PO 12/08/24 12:00 UNV Sevelamer HCl 1,600 mg TID PO 12/08/24 14:00 12/14/24 06:53 1,600 MG Aspirin 81 mg DAILY PO 12/09/24 10:00 12/13/24 09:32 81 MG Atorvastatin Calcium 40 mg HS PO 12/08/24 22:00 12/13/24 22:45 40 MG Diagnostic Test (Pha) 1 strip Q6HR 12/08/24 18:00 12/14/24 06:49 1 STRIP Insulin Human Regular Q6HR SC 12/08/24 18:00 12/14/24 06:50 4 UNITS Dextrose 50 ml UD PRN IV 12/08/24 12:15 Heparin Sodium (Porcine) 5,000 units Q12HR SC 12/08/24 22:00 12/13/24 22:43 5,000 UNITS Pantoprazole Sodium 40 mg DAILY IV 12/10/24 10:00 12/13/24 09:32 40 MG Sacubitril/ Valsartan 1 tab BID PO 12/14/24 22:00 UNV Carvedilol 6.25 mg Q12HR PO 12/14/24 22:00 UNV Examination: GENERAL:Normal, HEENT:Normal, NECK:Normal, LUNGS:Normal, LUNGS:Abnormal (ON OXYGEN), CVS:Normal, ABDOMEN:Normal, MSK:Normal, SKIN:Normal, NEURO:Normal, :Normal laboratory and microbiology Laboratory Tests 12/13/24 04:37 12/12/24 05:00 12/11/24 04:38 Test 12/13/24 04:37 Range/Units Serum Glucose 118 H 74-106 mg/dL Microbiology Date/Time Source Procedure Growth Status 12/08/24 14:30 Pleural Fluid Gram Stain - Final Complete 12/08/24 14:30 Pleural Fluid Aerobic Culture - Final Complete 12/08/24 13:00 Nose MRSA Screen - Final Complete 12/08/24 10:13 Sputum Gram Stain - Final Complete 12/08/24 10:13 Sputum Respiratory Culture - Final Complete 12/08/24 06:41 Blood Blood Culture - Final NO GROWTH AFTER 5 DAYS OF INCUBATION. Complete Problem List/Assessment/Plan Problem List/Assessment/Plan * acute resp failure: cont acv, cpap in am- extubated *[id number] systolic heart failure: dialysis, resume home meds * End-stage renal disease, on hemodialysis. * Coronary artery disease with previous stent: cont meds * History of coronary artery bypass graft. * Chronic obstructive pulmonary disease: dc steroids * Anemia * Shock ?cardiac: off levophed * Diabetes mellitus: ssi * History of hepatitis C. * Myf-CY-[id number] myocardial infarction, status post recent coronary angiography. advance care planning- full code- time spent 19 mins Plan discussed with: Patient My Orders My Orders Orders - CRAIG NAZARIO MD Procedure Category Date Status Time Sacubitril-Valsartan PHA 12/14/24 Logged (Entresto 24-26 Mg 22:00 Carvedilol Tablet PHA 12/14/24 Logged (Coreg Tablet) 22:00 Pt Request For Service PT 12/14/24 Logged 11:19 Basic Metabolic Panel LAB 12/15/24 Verified 06:00 Complete Blood Count LAB 12/15/24 Verified 06:00 Chest Portable XY 12/15/24 Logged 06:00 Dietary Evaluation Review Comments: 1. TF Nepro Carb Steady @ 45ml/hr. start @ 20ml/hr, increase 10ml/hr Q4H until goal is reached. TF at goal volume provides 100% energy & protein needs - 1944 kcal, 87 gm protein, 785 ml free water 2. Water flush 50ml Q6H 3. TPN if NPO> 7 days Expected Outcomes/Goals: To meet >75% estimated needs Fu 2-3 days Date of Service: Dec 14, 2024 Billing Provider: CRAIG NAZARIO MD Common Visit Codes: [id number] INP/OBS CARE(HIGH) Secondary Visit Codes: 79942-[id number] CARE PLAN 30 MINUTES CRAIG NAZARIO MD Dec 14, 2024 11:25
[2024-12-14] MEDS: SACUBITRIL-VALSARTAN 24mg/26mg TAB PO SCH (22:08)
[2024-12-14] MEDS: CARVEDILOL 3.125 MG TAB PO SCH (22:08)
[2024-12-14] MEDS: EPOETIN ALFA-EPBX 4,000 UNIT/ML VIAL SC ONE (22:11)
[2024-12-15] VITALS (14 sets, daily range): BP systolic 106–144; BP diastolic 59–77; PULSE 74–95; RESP 16–20; TEMP 97.1–98.1; O2SAT 97–100
[2024-12-15 05:20] LABS: Basophils # (auto) 0 10 ^3/uL (0-0.2); Eosinophils # (auto) 0.1 10 ^3/uL (0-0.8); Eosinophils % (auto) 0.7 % (0.0-7.0); Hematocrit 34.8 % (41.0-53.0); Hemoglobin 11.6 g/dL (13.5-17.5); Lymphocytes # (auto) 0.8 10 ^3/uL (0.4-5.4); Lymphocytes % (auto) 10.7 % (10.0-50.0); Mean Corpuscular Hgb Conc. 33.4 g/dL (32.0-36.0); Mean Corpuscular Volume 98.7 fL (80.0-100.0); Monocytes # (auto) 0.8 10 ^3/uL (0-1.3); Monocytes % (auto) 10.2 % (0.0-12.0); Neutrophils % (auto) 78.4 % (37.0-80.0); Nucleated Red Blood Cells % 0.3 %; Platelet Count (auto) 227 10^3/uL (140-450); Red Blood Cells 3.53 10^6/uL (4.5-5.90); Red Cell Distribution Width 14.6 % (11.8-14.3); White Blood Cell 7.7 10^3/uL (4.4-10.8)
[2024-12-15 05:22] LABS: Potassium 4.1 mmol/L (3.5-5.1)
[2024-12-15 05:23] LABS: Anion Gap 13 (5-15); Carbon Dioxide 26 mmol/L (20-31); Chloride 95 mmol/L (98-107); Sodium 134 mmol/L (136-145)
[2024-12-15 05:24] LABS: Calcium 10.1 mg/dL (8.7-10.4)
[2024-12-15 05:28] LABS: Glucose 93 mg/dL (74-106)
[2024-12-15 05:29] LABS: BUN/Creatinine Ratio 6.7 (10.0-20.0); Blood Urea Nitrogen 54 mg/dL (9-23)
--- NOTE | 2024-12-15 08:59 | DVH ---
INDICATION: chf TECHNIQUE: Single frontal view of the chest was obtained COMPARISON: XY CHEST PORTABLE on DOS: 12/13/24, XY CHEST PORTABLE on DOS: 12/11/24, XY CHEST PORTABLE on DOS: 12/10/24, XY CHEST PORTABLE on DOS: 12/09/24, XY CHEST XRAY 1 VIEW on DOS: 12/08/24, XY CHEST PORTABLE on DOS: 12/13/24 FINDINGS: Lines and Tubes: Status post interval extubation and removal of enteric catheter. Cardiac pacing tariq ce redemonstrated. Lungs: Grossly stable appearing left basilar pulmonary airspace disease and probable small left pleur al effusion. No pneumothorax. Cardiomediastinal contours: Unremarkable. Median sternotomy sutures. Bones: Unremarkable IMPRESSION: 1. Stable appearing left basilar pulmonary airspace disease and probable small left pleural effusion. 2. Status post interval extubation and removal of enteric catheter.
--- NOTE | 2024-12-15 10:23 | DVHPN2 ---
Progress Note Date Seen: Dec 15, 2024 Has the PT tested + for MRSA If YES, has PT been informed?: No Medical Necessity Reason Pt with a Central, PICC or Fol: Yes The following are medically ne: Armenta Catheter Reason for armenta catheter: Strict I&O Subjective Patient reports: No new complaints Review of Systems: HEENT:Normal, CVS:Normal, RESPIRATORY:Normal, GI:Normal, :Normal, MSK:Normal, NEURO:Normal Objective vital signs Vital Sign Date Time Temp Pulse Resp B/P (MAP) Pulse Ox O2 Delivery O2 Flow Rate FiO2 12/15/24 09:10 87 103/65 12/15/24 09:00 97.8 16 100 97.8 12/15/24 07:50 Nasal Cannula* 2 28 Total Intake and Output 12/14/24 12/14/24 12/15/24 15:00 23:00 07:00 Intake Total 200 ml 900 ml Output Total 10 ml 15 ml Balance 190 ml 885 ml medications Current Medications Medications Dose Ordered Sig/Edson Route Start Time Stop Time Status Last Admin Dose Admin Sodium Chloride 10 ml Q8HR IV 12/08/24 14:00 12/15/24 06:22 10 ML Ondansetron HCl 4 mg Q4HP PRN IV 12/08/24 09:15 Docusate Sodium 100 mg BIDPRN PRN PO 12/08/24 09:15 Acetaminophen 650 mg Q6HP PRN PO 12/08/24 09:15 Nitroglycerin 0.4 mg Q5MINP PRN SL 12/08/24 09:15 Morphine Sulfate 2 mg Q30M PRN IV 12/08/24 09:15 UNV Morphine Sulfate 2 mg Q30M PRN IV 12/08/24 09:30 Ipratropium [place] 0.5 mg Q6HWA NEB 12/08/24 12:00 12/15/24 06:56 0.5 MG Albuterol 2.5 mg Q6HWA NEB 12/08/24 12:00 12/15/24 06:56 2.5 MG Clopidogrel Bisulfate 75 mg DAILY PO 12/08/24 10:00 12/15/24 09:09 75 MG Ranolazine 500 mg BID PO 12/08/24 10:00 12/15/24 09:09 500 MG Patient Own Medication 1 tab DAILY PO 12/08/24 10:00 UNV Patient Own Medication 1 tab DAILY PO 12/08/24 10:00 UNV Patient Own Medication 1 tab BID PO 12/08/24 10:00 UNV Patient Own Medication 1 tab DAILY PO 12/08/24 10:00 UNV Patient Own Medication 1 tab DAILY PO 12/08/24 10:00 UNV Patient Own Medication 1 tab QID PO 12/08/24 12:00 UNV Sevelamer HCl 1,600 mg TID PO 12/08/24 14:00 12/15/24 06:02 1,600 MG Aspirin 81 mg DAILY PO 12/09/24 10:00 12/15/24 09:09 81 MG Atorvastatin Calcium 40 mg HS PO 12/08/24 22:00 12/14/24 22:08 40 MG Diagnostic Test (Pha) 1 strip Q6HR 12/08/24 18:00 12/15/24 05:54 1 STRIP Insulin Human Regular Q6HR SC 12/08/24 18:00 12/15/24 06:00 2 UNITS Dextrose 50 ml UD PRN IV 12/08/24 12:15 Heparin Sodium (Porcine) 5,000 units Q12HR SC 12/08/24 22:00 12/15/24 09:14 5,000 UNITS Pantoprazole Sodium 40 mg DAILY IV 12/10/24 10:00 12/15/24 09:08 40 MG Sacubitril/ Valsartan 1 tab BID PO 12/14/24 22:00 12/15/24 09:08 1 TAB Carvedilol 6.25 mg Q12HR PO 12/14/24 22:00 12/15/24 09:10 6.25 MG Examination: GENERAL:Normal, HEENT:Normal, NECK:Normal, LUNGS:Normal, LUNGS:Abnormal (on oxygen), CVS:Normal, ABDOMEN:Normal, MSK:Normal, SKIN:Normal, NEURO:Normal, :Normal laboratory and microbiology Laboratory Tests 12/15/24 04:31 Test 12/15/24 04:31 Range/Units Serum Glucose 93 74-106 mg/dL Microbiology Date/Time Source Procedure Growth Status 12/08/24 14:30 Pleural Fluid Gram Stain - Final Complete 12/08/24 14:30 Pleural Fluid Aerobic Culture - Final Complete 12/08/24 13:00 Nose MRSA Screen - Final Complete 12/08/24 10:13 Sputum Gram Stain - Final Complete 12/08/24 10:13 Sputum Respiratory Culture - Final Complete 12/08/24 06:41 Blood Blood Culture - Final NO GROWTH AFTER 5 DAYS OF INCUBATION. Complete Problem List/Assessment/Plan Problem List/Assessment/Plan * acute resp failure: cont acv, cpap in am- extubated *Louuy-ck-tgsfafj systolic heart failure: dialysis, resume home meds * End-stage renal disease, on hemodialysis. * Coronary artery disease with previous stent: cont meds * History of coronary artery bypass graft. * Chronic obstructive pulmonary disease: dc steroids * Anemia * Shock ?cardiac: off levophed * Diabetes mellitus: ssi * History of hepatitis C. * [id number] myocardial infarction, status post recent coronary angiography. poor prognosis advance care planning- full code- time spent 19 mins Plan discussed with: Patient My Orders My Orders Orders - CRAIG NAZARIO MD Procedure Category Date Status Time Sacubitril-Valsartan PHA 12/14/24 In Process (Entresto 24-26 Mg 22:00 Carvedilol Tablet PHA 12/14/24 In Process (Coreg Tablet) 22:00 Pt Request For Service PT 12/14/24 Logged 11:19 Chest Portable XY 12/15/24 Resulted 06:00 D/C Tlc RADHA 12/14/24 In Process 11:25 Dietary Evaluation Review Comments: 1. TF Nepro Carb Steady @ 45ml/hr. start @ 20ml/hr, increase 10ml/hr Q4H until goal is reached. TF at goal volume provides 100% energy & protein needs - 1944 kcal, 87 gm protein, 785 ml free water 2. Water flush 50ml Q6H 3. TPN if NPO> 7 days Expected Outcomes/Goals: To meet >75% estimated needs Fu 2-3 days Date of Service: Dec 15, 2024 Billing Provider: CRAIG NAZARIO MD Common Visit Codes: [id number] INP/OBS CARE(HIGH) CRAIG NAZARIO MD Dec 15, 2024 10:23
--- NOTE | 2024-12-15 11:47 | DVHPN2 ---
Progress Note - Dictate Date Seen: Dec 15, 2024 Has the PT tested + for MRSA If YES, has PT been informed?: No Medical Necessity Reason Pt with a Central, PICC or Fol: Yes The following are medically ne: Armenta Catheter Reason for armenta catheter: Strict I&O Subjective No new complaints vital signs Vital Sign Date Time Temp Pulse Resp B/P (MAP) Pulse Ox O2 Delivery O2 Flow Rate FiO2 12/15/24 10:10 79 105/69 12/15/24 09:00 97.8 16 100 97.8 12/15/24 07:50 Nasal Cannula* 2 28 Total Intake and Output 12/14/24 12/14/24 12/15/24 15:00 23:00 07:00 Intake Total 200 ml 900 ml Output Total 10 ml 15 ml Balance 190 ml 885 ml medications Current Medications Medications Dose Ordered Sig/Edson Route Start Time Stop Time Status Last Admin Dose Admin Sodium Chloride 10 ml Q8HR IV 12/08/24 14:00 12/15/24 06:22 10 ML Ondansetron HCl 4 mg Q4HP PRN IV 12/08/24 09:15 Docusate Sodium 100 mg BIDPRN PRN PO 12/08/24 09:15 Acetaminophen 650 mg Q6HP PRN PO 12/08/24 09:15 Nitroglycerin 0.4 mg Q5MINP PRN SL 12/08/24 09:15 Morphine Sulfate 2 mg Q30M PRN IV 12/08/24 09:15 UNV Morphine Sulfate 2 mg Q30M PRN IV 12/08/24 09:30 Ipratropium [place] 0.5 mg Q6HWA [facility] 12/08/24 12:00 12/15/24 06:56 0.5 MG Albuterol 2.5 mg Q6HWA [facility] 12/08/24 12:00 12/15/24 06:56 2.5 MG Clopidogrel Bisulfate 75 mg DAILY PO 12/08/24 10:00 12/15/24 09:09 75 MG Ranolazine 500 mg BID PO 12/08/24 10:00 12/15/24 09:09 500 MG Patient Own Medication 1 tab DAILY PO 12/08/24 10:00 UNV Patient Own Medication 1 tab DAILY PO 12/08/24 10:00 UNV Patient Own Medication 1 tab BID PO 12/08/24 10:00 UNV Patient Own Medication 1 tab DAILY PO 12/08/24 10:00 UNV Patient Own Medication 1 tab DAILY PO 12/08/24 10:00 UNV Patient Own Medication 1 tab QID PO 12/08/24 12:00 UNV Sevelamer HCl 1,600 mg TID PO 12/08/24 14:00 12/15/24 06:02 1,600 MG Aspirin 81 mg DAILY PO 12/09/24 10:00 12/15/24 09:09 81 MG Atorvastatin Calcium 40 mg HS PO 12/08/24 22:00 12/14/24 22:08 40 MG Diagnostic Test (Pha) 1 strip Q6HR 12/08/24 18:00 12/15/24 11:22 1 STRIP Insulin Human Regular Q6HR SC 12/08/24 18:00 12/15/24 11:21 2 UNITS Dextrose 50 ml UD PRN IV 12/08/24 12:15 Heparin Sodium (Porcine) 5,000 units Q12HR SC 12/08/24 22:00 12/15/24 09:14 5,000 UNITS Sacubitril/ Valsartan 1 tab BID PO 12/14/24 22:00 12/15/24 09:08 1 TAB Carvedilol 6.25 mg Q12HR PO 12/14/24 22:00 12/15/24 09:10 6.25 MG Pantoprazole Sodium 40 mg DAILY@0600 PO 12/16/24 06:00 objective Alert, NAD HEENT: Otherwise unremarkable. LUNGS: Show diminished air entry at the bases. No crackles, wheezing, or rhonchi. CARDIOVASCULAR: Shows regular rate, 1/6 systolic murmur. ABDOMEN: Soft, mildly distended. Bowel sounds are diminished in intensity and frequency. No abnormalities. No ascites. EXTREMITIES: Show no clubbing or cyanosis. There is no edema. NEUROLOGIC: Exam was not performed. laboratory and microbiology Laboratory Tests 12/15/24 04:31 Test 12/15/24 04:31 Range/Units Serum Glucose 93 74-106 mg/dL Problem List ASSESSMENT AND PLAN: * End-stage renal disease.Stable from renal standpoint * Anemia of renal disease. * Congestive heart failure. * Respiratory failure * Severe underlying coronary artery disease. * Pleural effusion s/p thoracentesis, extubated HD tomorrow DC planning Dietary Evaluation Review Comments: 1. TF Nepro Carb Steady @ 45ml/hr. start @ 20ml/hr, increase 10ml/hr Q4H until goal is reached. TF at goal volume provides 100% energy & protein needs - 1944 kcal, 87 gm protein, 785 ml free water 2. Water flush 50ml Q6H 3. TPN if NPO> 7 days Expected Outcomes/Goals: To meet >75% estimated needs Fu 2-3 days Plan discussed with: Patient HI WINTER MD Dec 15, 2024 11:47
[2024-12-16] VITALS (13 sets, daily range): BP systolic 98–123; BP diastolic 49–72; PULSE 61–83; RESP 16–19; TEMP 97.1–98.2; O2SAT 97–100
[2024-12-16 05:42] LABS: Hematocrit 31.8 % (41.0-53.0); Hemoglobin 10.7 g/dL (13.5-17.5)
[2024-12-16 06:04] LABS: % Iron Saturation 35.8 % (20-55)
[2024-12-16] MEDS: PANTOPRAZOLE 40 MG TAB PO SCH (06:31)
[2024-12-16] MEDS ORDERED: SODIUM CHL 0.9% 1000 ML BAG XX ONE (07:00)
[2024-12-16] MEDS ORDERED: ALBUMIN 25% 100 ML IV ONE (08:30)
--- NOTE | 2024-12-16 10:00 | DVHPN2 ---
Progress Note Date Seen: Dec 16, 2024 Has the PT tested + for MRSA If YES, has PT been informed?: No Medical Necessity Reason Pt with a Central, PICC or Fol: No Subjective Patient reports: No new complaints Review of Systems: HEENT:Normal, CVS:Normal, RESPIRATORY:Normal, GI:Normal, :Normal, MSK:Normal, NEURO:Normal Objective vital signs Vital Sign Date Time Temp Pulse Resp B/P (MAP) Pulse Ox O2 Delivery O2 Flow Rate FiO2 12/16/24 05:40 78 16 100 12/16/24 05:29 Nasal Cannula* 1 24 12/16/24 05:00 97.5 123/49 (73) 97.5 Total Intake and Output 12/15/24 12/15/24 12/16/24 15:00 23:00 07:00 Intake Total 450 ml 900 ml Balance 450 ml 900 ml medications Current Medications Medications Dose Ordered Sig/Edson Route Start Time Stop Time Status Last Admin Dose Admin Sodium Chloride 10 ml Q8HR IV 12/08/24 14:00 12/16/24 06:32 10 ML Ondansetron HCl 4 mg Q4HP PRN IV 12/08/24 09:15 Docusate Sodium 100 mg BIDPRN PRN PO 12/08/24 09:15 Acetaminophen 650 mg Q6HP PRN PO 12/08/24 09:15 Nitroglycerin 0.4 mg Q5MINP PRN SL 12/08/24 09:15 Morphine Sulfate 2 mg Q30M PRN IV 12/08/24 09:15 UNV Morphine Sulfate 2 mg Q30M PRN IV 12/08/24 09:30 Ipratropium [place] 0.5 mg Q6HWA NEB 12/08/24 12:00 12/16/24 05:28 0.5 MG Albuterol 2.5 mg Q6HWA NEB 12/08/24 12:00 12/16/24 05:29 2.5 MG Clopidogrel Bisulfate 75 mg DAILY PO 12/08/24 10:00 12/15/24 09:09 75 MG Ranolazine 500 mg BID PO 12/08/24 10:00 12/15/24 22:24 500 MG Patient Own Medication 1 tab DAILY PO 12/08/24 10:00 UNV Patient Own Medication 1 tab DAILY PO 12/08/24 10:00 UNV Patient Own Medication 1 tab BID PO 12/08/24 10:00 UNV Patient Own Medication 1 tab DAILY PO 12/08/24 10:00 UNV Patient Own Medication 1 tab DAILY PO 12/08/24 10:00 UNV Patient Own Medication 1 tab QID PO 12/08/24 12:00 UNV Sevelamer HCl 1,600 mg TID PO 12/08/24 14:00 12/16/24 06:32 1,600 MG Aspirin 81 mg DAILY PO 12/09/24 10:00 12/15/24 09:09 81 MG Atorvastatin Calcium 40 mg HS PO 12/08/24 22:00 12/15/24 22:24 40 MG Diagnostic Test (Pha) 1 strip Q6HR 12/08/24 18:00 12/16/24 06:27 1 STRIP Insulin Human Regular Q6HR SC 12/08/24 18:00 12/16/24 01:09 3 UNITS Dextrose 50 ml UD PRN IV 12/08/24 12:15 Heparin Sodium (Porcine) 5,000 units Q12HR SC 12/08/24 22:00 12/15/24 22:27 5,000 UNITS Sacubitril/ Valsartan 1 tab BID PO 12/14/24 22:00 12/15/24 22:24 1 TAB Carvedilol 6.25 mg Q12HR PO 12/14/24 22:00 12/15/24 22:24 6.25 MG Pantoprazole Sodium 40 mg DAILY@0600 PO 12/16/24 06:00 12/16/24 06:31 40 MG Examination: GENERAL:Normal, HEENT:Normal, NECK:Normal, LUNGS:Normal, LUNGS:Abnormal (on oxygen), CVS:Normal, ABDOMEN:Normal, MSK:Normal, SKIN:Normal, NEURO:Normal, :Normal laboratory and microbiology Laboratory Tests 12/16/24 04:59 12/15/24 04:31 Test 12/15/24 04:31 Range/Units Serum Glucose 93 74-106 mg/dL Microbiology Date/Time Source Procedure Growth Status 12/08/24 14:30 Pleural Fluid Gram Stain - Final Complete 12/08/24 14:30 Pleural Fluid Aerobic Culture - Final Complete 12/08/24 13:00 Nose MRSA Screen - Final Complete 12/08/24 10:13 Sputum Gram Stain - Final Complete 12/08/24 10:13 Sputum Respiratory Culture - Final Complete 12/08/24 06:41 Blood Blood Culture - Final NO GROWTH AFTER 5 DAYS OF INCUBATION. Complete Problem List/Assessment/Plan Problem List/Assessment/Plan * acute resp failure: cont acv, cpap in am- extubated *[id number] systolic heart failure: dialysis today, resume home meds * End-stage renal disease, on hemodialysis. * Coronary artery disease with previous stent: cont meds * History of coronary artery bypass graft. * Chronic obstructive pulmonary disease: dc steroids * Anemia * Shock ?cardiac: off levophed * Diabetes mellitus: ssi * History of hepatitis C. * Fpl-[id number]-[id number] myocardial infarction, status post recent coronary angiography. poor prognosis advance care planning- full code- time spent 19 mins Plan discussed with: Patient My Orders My Orders Orders - CRAIG NAZARIO MD Procedure Category Date Status Time Pantoprazole Tablet PHA 12/16/24 In Process (Protonix Tablet) 06:00 Discontinue Romero RADHA 12/15/24 In Process Catheter 10:20 * Nursing Department Chairperson CONS 12/15/24 Transmitted Consult Dietary Evaluation Review Comments: 1. TF Nepro Carb Steady @ 45ml/hr. start @ 20ml/hr, increase 10ml/hr Q4H until goal is reached. TF at goal volume provides 100% energy & protein needs - 1944 kcal, 87 gm protein, 785 ml free water 2. Water flush 50ml Q6H 3. TPN if NPO> 7 days Expected Outcomes/Goals: To meet >75% estimated needs Fu 2-3 days Date of Service: Dec 16, 2024 Billing Provider: CRAIG NAZARIO MD Common Visit Codes: [id number] INP/OBS CARE(HIGH) CRAIG NAZARIO MD Dec 16, 2024 10:00
--- NOTE | 2024-12-16 15:52 | DVHPN2 ---
Progress Note - Dictate Date Seen: Dec 16, 2024 Has the PT tested + for MRSA If YES, has PT been informed?: No Medical Necessity Reason Pt with a Central, PICC or Fol: No Subjective Had HD today vital signs Vital Sign Date Time Temp Pulse Resp B/P (MAP) Pulse Ox O2 Delivery O2 Flow Rate FiO2 12/16/24 13:00 97.1 79 19 98/72 (81) 100 97.1 12/16/24 11:28 Nasal Cannula* 1 24 Total Intake and Output 12/15/24 12/15/24 12/16/24 15:00 23:00 07:00 Intake Total 450 ml 1650 ml Output Total 7 ml Balance 450 ml 1643 ml medications Current Medications Medications Dose Ordered Sig/Edson Route Start Time Stop Time Status Last Admin Dose Admin Sodium Chloride 10 ml Q8HR IV 12/08/24 14:00 12/16/24 06:32 10 ML Ondansetron HCl 4 mg Q4HP PRN IV 12/08/24 09:15 Docusate Sodium 100 mg BIDPRN PRN PO 12/08/24 09:15 Acetaminophen 650 mg Q6HP PRN PO 12/08/24 09:15 Nitroglycerin 0.4 mg Q5MINP PRN SL 12/08/24 09:15 Morphine Sulfate 2 mg Q30M PRN IV 12/08/24 09:15 UNV Morphine Sulfate 2 mg Q30M PRN IV 12/08/24 09:30 Ipratropium [place] 0.5 mg Q6HWA NEB 12/08/24 12:00 12/16/24 11:27 0.5 MG Albuterol 2.5 mg Q6HWA [facility] 12/08/24 12:00 12/16/24 11:28 2.5 MG Clopidogrel Bisulfate 75 mg DAILY PO 12/08/24 10:00 12/16/24 10:42 75 MG Ranolazine 500 mg BID PO 12/08/24 10:00 12/16/24 10:42 500 MG Patient Own Medication 1 tab DAILY PO 12/08/24 10:00 UNV Patient Own Medication 1 tab DAILY PO 12/08/24 10:00 UNV Patient Own Medication 1 tab BID PO 12/08/24 10:00 UNV Patient Own Medication 1 tab DAILY PO 12/08/24 10:00 UNV Patient Own Medication 1 tab DAILY PO 12/08/24 10:00 UNV Patient Own Medication 1 tab QID PO 12/08/24 12:00 UNV Sevelamer HCl 1,600 mg TID PO 12/08/24 14:00 12/16/24 06:32 1,600 MG Aspirin 81 mg DAILY PO 12/09/24 10:00 12/16/24 10:42 81 MG Atorvastatin Calcium 40 mg HS PO 12/08/24 22:00 12/15/24 22:24 40 MG Diagnostic Test (Pha) 1 strip Q6HR 12/08/24 18:00 12/16/24 11:30 1 STRIP Insulin Human Regular Q6HR SC 12/08/24 18:00 12/16/24 11:40 2 UNITS Dextrose 50 ml UD PRN IV 12/08/24 12:15 Heparin Sodium (Porcine) 5,000 units Q12HR SC 12/08/24 22:00 12/16/24 10:38 5,000 UNITS Sacubitril/ Valsartan 1 tab BID PO 12/14/24 22:00 12/16/24 10:42 1 TAB Carvedilol 6.25 mg Q12HR PO 12/14/24 22:00 12/15/24 22:24 6.25 MG Pantoprazole Sodium 40 mg DAILY@0600 PO 12/16/24 06:00 12/16/24 06:31 40 MG objective Alert, NAD HEENT: Otherwise unremarkable. LUNGS: Show diminished air entry at the bases. No crackles, wheezing, or rhonchi. CARDIOVASCULAR: Shows regular rate, 1/6 systolic murmur. ABDOMEN: Soft, mildly distended. Bowel sounds are diminished in intensity and frequency. No abnormalities. No ascites. EXTREMITIES: Show no clubbing or cyanosis. There is no edema. NEUROLOGIC: Exam was not performed. laboratory and microbiology Laboratory Tests 12/16/24 04:59 12/15/24 04:31 Test 12/15/24 04:31 Range/Units Serum Glucose 93 74-106 mg/dL Problem List ASSESSMENT AND PLAN: * End-stage renal disease.Stable from renal standpoint * Anemia of renal disease. * Congestive heart failure. * Respiratory failure * Severe underlying coronary artery disease. * Pleural effusion s/p thoracentesis, extubated HD today, tolerated removal of 1 L of fluid, appears euvolemic DC planning Dietary Evaluation Review Comments: 1. TF Nepro Carb Steady @ 45ml/hr. start @ 20ml/hr, increase 10ml/hr Q4H until goal is reached. TF at goal volume provides 100% energy & protein needs - 1944 kcal, 87 gm protein, 785 ml free water 2. Water flush 50ml Q6H 3. TPN if NPO> 7 days Expected Outcomes/Goals: To meet >75% estimated needs Fu 2-3 days Plan discussed with: Patient HI WINTER MD Dec 16, 2024 15:52
[2024-12-17] VITALS (10 sets, daily range): BP systolic 117–129; BP diastolic 67–79; PULSE 72–94; RESP 16–18; TEMP 97.7–98.3; O2SAT 95–100
--- NOTE | 2024-12-17 10:00 | DVHDS2 ---
Discharge Summary Date of Admission Dec 08, 2024 at 09:01 Date of Discharge: Dec 17, 2024 Labs/Diagnostic Data: Laboratory Results Test 12/17/24 05:54 12/16/24 04:59 12/15/24 04:31 12/14/24 09:50 POC Glucose 121 mg/dl (70-106) Hemoglobin 10.7 g/dL (13.5-17.5) Hematocrit 31.8 % (41.0-53.0) Iron Level 64 ug/dL (65-175) Total Iron Binding Capacity 179 ug/dL (250-425) Percent Iron Saturation 35.8 % (20-55) Ferritin 1592.2 ng/mL (22-322) White Blood Count 7.7 10^3/uL (4.4-10.8) Red Blood Count 3.53 10^6/uL (4.5-5.90) Mean Corpuscular Volume 98.7 fL (80.0-100.0) Mean Corpuscular Hemoglobin 33.0 pg (28.0-32.0) Mean Corpuscular Hemoglobin Concent 33.4 g/dL (32.0-36.0) Red Cell Distribution Width 14.6 % (11.8-14.3) Platelet Count 227 10^3/uL (140-450) Mean Platelet Volume 7.6 fL (6.9-10.8) Neutrophils (%) (Auto) 78.4 % (37.0-80.0) Lymphocytes (%) (Auto) 10.7 % (10.0-50.0) Monocytes (%) (Auto) 10.2 % (0.0-12.0) Eosinophils (%) (Auto) 0.7 % (0.0-7.0) Basophils (%) (Auto) 0.0 % (0.0-2.0) Neutrophils # (Auto) 6.0 10 ^3/uL (1.6-8.6) Lymphocytes # (Auto) 0.8 10 ^3/uL (0.4-5.4) Monocytes # (Auto) 0.8 10 ^3/uL (0-1.3) Eosinophils # (Auto) 0.1 10 ^3/uL (0-0.8) Basophils # (Auto) 0 10 ^3/uL (0-0.2) Nucleated Red Blood Cells 0.3 % Sodium Level 134 mmol/L (136-145) Potassium Level 4.1 mmol/L (3.5-5.1) Chloride Level 95 mmol/L (98-107) Carbon Dioxide Level 26 mmol/L (20-31) Anion Gap 13 (5-15) Blood Urea Nitrogen 54 mg/dL (9-23) Creatinine 8.11 mg/dL (0.700-1.30) Glomerular Filtration Rate Calc 6 mL/min (>90) BUN/Creatinine Ratio 6.7 (10.0-20.0) Serum Glucose 93 mg/dL (74-106) Calcium Level 10.1 mg/dL (8.7-10.4) Hepatitis B Surface Antigen Negative (Negative) Test 12/13/24 04:37 12/12/24 12:04 12/12/24 06:42 12/11/24 04:38 Total Bilirubin 0.2 mg/dL (0.2-1.0) Aspartate Amino Transferase (AST) 21 U/L (13-40) Alanine Aminotransferase (ALT) 17 U/L (7-40) Alkaline Phosphatase 79 U/L (46-116) B-Type Natriuretic Peptide 2819.90 pg/mL (0-100) Total Protein 6.7 g/dL (5.7-8.2) Albumin 3.7 g/dL (3.2-4.8) Blood Gas Specimen Type Arterial Blood Gas Sample Site Right radial Blood Gas Patient Temperature 37.0 Arterial Blood Date Drawn [id number] Arterial Blood pH 7.379 (7.350-7.450) Arterial Blood Partial Pressure CO2 50.8 mmHg (35.0-48.0) Arterial Blood Partial Pressure O2 107.8 mmHg (83.0-108.0) Arterial Blood HCO3 29.3 mmol/L (21.0-28.0) Arterial Blood Oxygen Saturation 96.9 % (94.0-98.0) Arterial Blood Base Excess 3.3 mmol/L (-2.0-3.0) Arterial Blood Oxyhemoglobin 96.1 % (94.0-98.0) Arterial Blood Carboxyhemoglobin 0.5 % (0.5-1.5) Arterial Blood Methemoglobin 0.3 % (0.0-1.5) Max Test Modified Blood Gas Total Hemoglobin 12.00 g/dL (13.5-17.5) Blood Gas Modality Vent - cpap FiO2 % 30.0 Blood Gas Pressure Support 8 Blood Gas PEEP or CPAP 5.0 Blood Gas Set Respiration Rate 16.0 Blood Gas Tidal Volume 500.0 Magnesium Level 2.7 mg/dL (1.6-2.6) Test 12/09/24 04:53 12/08/24 14:30 12/08/24 13:18 12/08/24 12:15 Troponin I High Sensitivity 769 ng/L (</=54) Body Fluid Source Pleural fluid Body Fluid pH 8.0 Body Fluid WBC (Manual) 300 CUMM (0-200) Body Fluid RBC (Manual) 70938 CUMM (0-2000) Body Fluid Mononuclear Cells 80 % Body Fluid Polymorphonuclear Cells 20 % (0-25) D-Dimer, Quantitative 4.16 mg/L FEU (0.0-0.49) Urine Color Light-yellow (Yellow) Urine Clarity Turbid (Clear) Urine pH 8.0 (5.0-9.0) Urine Specific [place] 1.013 (1.001-1.035) Urine Protein 2+ (Negative) Urine Ketones Negative (Negative) Urine Blood 1+ /uL (Negative) Urine Nitrite Negative (Negative) Urine Bilirubin Negative (Negative) Urine Urobilinogen Normal mg/dL (Negative) Urine Leukocyte Esterase Negative /uL (Negative) Urine RBC 2 /hpf (0 - 3) Urine Microscopic WBC 6 /HPF (0-3) Urine Squamous Epithelial Cells None seen /hpf (<5) Urine Bacteria Few /hpf (None Seen) Urine Glucose 1+ mg/dL (Normal) Test 12/08/24 12:04 12/08/24 09:10 Blood Gas Critical Value Read Back Yes Blood Gas Notified Whom Augie nicole Blood Gas Notified Time [id number] Blood Gas Notified By Stephanie grewal Lactic Acid Level 1.5 mmol/L (0.4-2.0) Other Laboratory Tests 12/16/24 04:59 12/15/24 04:31 Brief Hx & Hospital Course: SEE DICTATED NOTE Condition at Discharge: Fair Final Diagnosis/Problems List CHF Discharge Disposition: Home with Health Services Discharge Instruct/Medications Diet: Renal Activity: No Restrictions, As Tolerated Follow Up/Referral: FU WITH PCP/DIALYSIS Medications: RESUME HOME MEDS Discharge Statement: "Patient was advised to return to the ER or call 911 if any headaches, dizziness, shortness of breath, chest pain, abdominal pain, bleeding, fevers, or worsening of medical condition. Patient was counseled about treatment plan, medications, possible side effects, patientverbalized understanding. All questions were answered to the best of my ability. This discharge took greater then 30 minutes in planning, reviewing documentation, counseling the patient, and discussing with other team members." ASSESSMENT ASSESSMENT Assessment CHF Date of Service: Dec 17, 2024 Billing Provider: CRAIG NAZARIO MD Common Visit Codes: [id number] DISCH DAY >30min CRAIG NAZARIO MD Dec 17, 2024 10:00
--- NOTE | 2024-12-17 11:10 | DVHDS ---
HISTORY OF PRESENT ILLNESS: The patient is a 74-year-old gentleman who was admitted with history of increasing shortness of breath requiring subsequent intubation. The patient has history of congestive heart failure, AICD placement, previous CABG, previous stent, end-stage renal disease on hemodialysis, and COPD with chronic respiratory failure. HOSPITAL COURSE: The patient's chest x-ray showed evidence of a small left pleural effusion. The patient underwent thoracentesis with removal of 1 liter of fluid. Doppler of the lower extremity showed peripheral vascular disease in bilateral dorsalis pedis. The patient's blood cultures were negative. Pleural fluid cultures and sputum cultures were also negative. The patient was successfully extubated. He was seen in Nephrology consult by Dr. Floyd. Troponin levels were elevated. The patient was now doing well and will be discharged home to resume his home medication as well as to resume his home dialysis. He will also have home health. FINAL DIAGNOSES: * Acute respiratory failure. * Acute on chronic systolic heart failure. * End-stage renal disease on hemodialysis. * Coronary artery disease with previous stent. * History of CABG. * COPD with exacerbation. * Anemia. * Shock, questionably cardiac. * Diabetes mellitus. * History of hepatitis C. * Non-ST elevation VT. Time spent in discharge planning and review of plan with the patient, social service and nursing was 38 minutes. MD DARIN Leyva/URIEL/AMI TID: [id number] RECEIPT: [id number]
[2024-12-17] MEDS ORDERED: IPR002IS HHN (15:37)
[2024-12-17] MEDS ORDERED: ALBU1.258 IN (15:37)
--- NOTE | 2024-12-17 17:25 | DVHPN2 ---
Progress Note - Dictate Date Seen: Dec 17, 2024 Has the PT tested + for MRSA If YES, has PT been informed?: No Medical Necessity Reason Pt with a Central, PICC or Fol: No Subjective Feeling weak No chest pain vital signs Vital Sign Date Time Temp Pulse Resp B/P (MAP) Pulse Ox O2 Delivery O2 Flow Rate FiO2 12/17/24 12:30 98.1 74 16 126/69 (88) 100 98.1 12/17/24 11:49 Nasal Cannula* 2 28 Total Intake and Output 12/16/24 12/16/24 12/17/24 15:00 23:00 07:00 Intake Total 250 ml Balance 250 ml medications Current Medications Medications Dose Ordered Sig/Edson Route Start Time Stop Time Status Last Admin Dose Admin Sodium Chloride 10 ml Q8HR IV 12/08/24 14:00 12/17/24 06:02 10 ML Ondansetron HCl 4 mg Q4HP PRN IV 12/08/24 09:15 Docusate Sodium 100 mg BIDPRN PRN PO 12/08/24 09:15 Acetaminophen 650 mg Q6HP PRN PO 12/08/24 09:15 Nitroglycerin 0.4 mg Q5MINP PRN SL 12/08/24 09:15 Morphine Sulfate 2 mg Q30M PRN IV 12/08/24 09:15 UNV Ipratropium [place] 0.5 mg Q6HWA NEB 12/08/24 12:00 12/17/24 11:49 0.5 MG Albuterol 2.5 mg Q6HWA [facility] 12/08/24 12:00 12/17/24 11:49 2.5 MG Clopidogrel Bisulfate 75 mg DAILY PO 12/08/24 10:00 12/17/24 09:44 75 MG Ranolazine 500 mg BID PO 12/08/24 10:00 12/17/24 09:42 500 MG Patient Own Medication 1 tab DAILY PO 12/08/24 10:00 UNV Patient Own Medication 1 tab DAILY PO 12/08/24 10:00 UNV Patient Own Medication 1 tab BID PO 12/08/24 10:00 UNV Patient Own Medication 1 tab DAILY PO 12/08/24 10:00 UNV Patient Own Medication 1 tab DAILY PO 12/08/24 10:00 UNV Patient Own Medication 1 tab QID PO 12/08/24 12:00 UNV Sevelamer HCl 1,600 mg TID PO 12/08/24 14:00 12/17/24 05:34 1,600 MG Aspirin 81 mg DAILY PO 12/09/24 10:00 12/17/24 09:42 81 MG Atorvastatin Calcium 40 mg HS PO 12/08/24 22:00 12/16/24 21:52 40 MG Diagnostic Test (Pha) 1 strip Q6HR 12/08/24 18:00 12/17/24 05:36 1 STRIP Insulin Human Regular Q6HR SC 12/08/24 18:00 12/16/24 18:23 2 UNITS Dextrose 50 ml UD PRN IV 12/08/24 12:15 Heparin Sodium (Porcine) 5,000 units Q12HR SC 12/08/24 22:00 12/17/24 09:37 5,000 UNITS Sacubitril/ Valsartan 1 tab BID PO 12/14/24 22:00 12/17/24 09:43 1 TAB Carvedilol 6.25 mg Q12HR PO 12/14/24 22:00 12/17/24 09:43 6.25 MG Pantoprazole Sodium 40 mg DAILY@0600 PO 12/16/24 06:00 12/17/24 06:02 40 MG objective Alert, NAD HEENT: Otherwise unremarkable. LUNGS: Show diminished air entry at the bases. No crackles, wheezing, or rhonchi. CARDIOVASCULAR: Shows regular rate, 1/6 systolic murmur. ABDOMEN: Soft, mildly distended. Bowel sounds are diminished in intensity and frequency. No abnormalities. No ascites. EXTREMITIES: Show no clubbing or cyanosis. There is no edema. NEUROLOGIC: Exam was not performed. laboratory and microbiology Laboratory Tests 12/16/24 04:59 12/15/24 04:31 Test 12/15/24 04:31 Range/Units Serum Glucose 93 74-106 mg/dL Problem List ASSESSMENT AND PLAN: * End-stage renal disease.Stable from renal standpoint * Anemia of renal disease. * Congestive heart failure. * Respiratory failure * Severe underlying coronary artery disease. * Pleural effusion s/p thoracentesis, extubated HD again tomorrow DC planning Dietary Evaluation Review Comments: 1. TF Nepro Carb Steady @ 45ml/hr. start @ 20ml/hr, increase 10ml/hr Q4H until goal is reached. TF at goal volume provides 100% energy & protein needs - 1944 kcal, 87 gm protein, 785 ml free water 2. Water flush 50ml Q6H 3. TPN if NPO> 7 days Expected Outcomes/Goals: To meet >75% estimated needs Fu 2-3 days Plan discussed with: Patient HI WINTER MD Dec 17, 2024 17:25
[2024-12-18] MEDS ORDERED: SODIUM CHL 0.9% 1000 ML BAG XX ONE (07:00)
[2024-12-18] MEDS ORDERED: EPOETIN ALFA-EPBX 4,000 UNIT/ML VIAL SC ONE (21:00)
== END 2024-12-17 15:38 | disposition home health service (06) | DRG 207 ==
LOC: ER 05:30 → EDBD 05:30 → OVERFLOW 09:01 → ICU CENTRL 12:27 → TELE-CENTR 12-13 18:18
PROVIDERS: ADMIT Internal Medicine; ATTEND Internal Medicine
PROC: 5A1955Z Respiratory Ventilation, Greater than 96 Consecutive Hours (ICD-10-PCS; principal; 2024-12-08)
PROC: 06HY33Z Insertion of Infusion Device into Lower Vein, Percutaneous Approach (ICD-10-PCS; 2024-12-08)
PROC: 0BH17EZ Insertion of Endotracheal Airway into Trachea, Via Natural or Artificial Opening (ICD-10-PCS; 2024-12-08)
PROC: 0W9B3ZX Drainage of Left Pleural Cavity, Percutaneous Approach, Diagnostic (ICD-10-PCS; 2024-12-08)
PROC: 5A1D70Z Performance of Urinary Filtration, Intermittent, Less than 6 Hours Per Day (ICD-10-PCS; 2024-12-08)
PROC: 5A1D70Z Performance of Urinary Filtration, Intermittent, Less than 6 Hours Per Day (ICD-10-PCS; 2024-12-10)
PROC: 5A1D70Z Performance of Urinary Filtration, Intermittent, Less than 6 Hours Per Day (ICD-10-PCS; 2024-12-12)
PROC: 5A1D70Z Performance of Urinary Filtration, Intermittent, Less than 6 Hours Per Day (ICD-10-PCS; 2024-12-14)
PROC: 5A1D70Z Performance of Urinary Filtration, Intermittent, Less than 6 Hours Per Day (ICD-10-PCS; 2024-12-16)
DX: J96.21 Acute and chronic respiratory failure with hypoxia (principal); I50.23 Acute on chronic systolic (congestive) heart failure; I21.A1 Myocardial infarction type 2; N18.6 End stage renal disease; R57.0 Cardiogenic shock; E87.1 Hypo-osmolality and hyponatremia; J98.11 Atelectasis; I13.2 Hypertensive heart and chronic kidney disease with heart failure and with stage 5 chronic kidney disease, or end stage renal disease; J44.1 Chronic obstructive pulmonary disease with (acute) exacerbation; J44.9 Chronic obstructive pulmonary disease, unspecified; I25.10 Atherosclerotic heart disease of native coronary artery without angina pectoris; E78.5 Hyperlipidemia, unspecified; E11.51 Type 2 diabetes mellitus with diabetic peripheral angiopathy without gangrene; D63.1 Anemia in chronic kidney disease; E11.22 Type 2 diabetes mellitus with diabetic chronic kidney disease; B19.20 Unspecified viral hepatitis C without hepatic coma; E87.5 Hyperkalemia; E83.41 Hypermagnesemia; I25.5 Ischemic cardiomyopathy; N40.0 Benign prostatic hyperplasia without lower urinary tract symptoms; I49.3 Ventricular premature depolarization; Z79.82 Long term (current) use of aspirin; Z79.899 Other long term (current) drug therapy; Z99.2 Dependence on renal dialysis; Z95.1 Presence of aortocoronary bypass graft; Z99.81 Dependence on supplemental oxygen; Z95.810 Presence of automatic (implantable) cardiac defibrillator; Z95.5 Presence of coronary angioplasty implant and graft
CPT/HCPCS: 31500; 32555; 36415; 36556; 36600; 71045; 76604; 76942; 80048; 80053; 81001; 82728; 82805; 82962; 83540; 83550; 83605; 83735; 83880; 83986; 84484; 85014; 85018; 85025; 85379; 87040; 87070; 87081; 87205; 87340; 89051; 90935; 93005; 93925; 94002; 94003; 94640; 96365; 96367; 96375; 97163; 99291; 99292; G0378; J1642; J1815; J2470; J2543; P9047

== ENCOUNTER 2025-01-04 15:34 | Inpatient (IN) | payer MEDICARE, MEDICAID ==
[~2025-01-04] VITALS: Ht 175.3 cm; Wt 69.4 kg
[~2025-01-04 15:34] MED LIST changes: +ALBU1.258 IN; -DOXY-286 PO; -HYDR1TAB97 PO; +IPR002IS HHN; -LEVO750T40 PO; -NIFE90TA75 PO
--- NOTE | 2025-01-04 16:04 | ED.PDOC ---
History of Present Illness HPI Comments 74-year-old male presents to the ER with a prior medical history of CAD, CHF, COPD, diabetes, ESRD-M, W, F, hypertension, NH; surgical history of CABG, PTCA, coronary artery disease and the chief complaint of hypotension. Patient reports on having E physical therapy due today and while he was there he felt weak and very lightheaded so they checked the patient's blood pressure and heart rate and it was recorded as very low and EMS was called out. Denies chills, fever, N/V/D, SOB, CP. No other associated symptoms, modifiers, recent injuries or sick contacts present at this time. Time Seen by MD: 15:50 Primary Care Provider: ? Reviewed Notes: Nurses Notes, Medications, Allergies Allergies: Coded Allergies: NO KNOWN ALLERGIES (Unverified , 01/05/24) Home Meds Active Scripts Ipratropium [place] (Ipratropium [place]) 0.02 % Brittany, 0.5 % HHN QIDP for 30 Days, #90 ML 3 Refills Prov:CRAIG NAZARIO MD 12/17/24 Albuterol Sulfate (Albuterol Sulfate) 1.25 Mg/3 Ml Neb, 1.25 MG IN QIDP for 30 Days, #90 INH 2 Refills Prov:CRAIG NAZARIO MD 12/17/24 Reported Medications Magnesium Oxide (Magnesium Oxide) 400 Mg Tab, 1 TAB PO DAILY for 90 Days, #90 10/29/24 Meloxicam (Meloxicam) 15 Mg Tab, 1 TAB PO DAILY for 30 Days, #30 10/29/24 Sacubitril-Valsartan (Entresto 24-26 mg) 1 Tab Tab, 1 TAB PO BID for 30 Days, #60 10/29/24 Nitroglycerin (Nitrostat) 0.4 Mg Sub, 1 TAB PO UD for 33 Days, #100 10/29/24 Atorvastatin Calcium (ATORVASTATIN CALCIUM) 40 Mg Tab, 1 TAB PO DAILY for 90 Days, #90 10/29/24 Isosorbide Mononitrate (Isosorbide Mononitrate Er) 30 Mg Tab, 1 TAB PO DAILY for 90 Days, #90 10/29/24 Clopidogrel Bisulfate (CLOPIDOGREL) 75 Mg Tab, 1 TAB PO DAILY for 90 Days, #90 10/29/24 Ranolazine (Ranolazine ER) 500 Mg Tab, 1 TAB PO BID for 30 Days, #60 10/29/ Furosemide (Furosemide) 40 Mg Tab, 1 TAB PO DAILY for 90 Days, #90 01/07/24 Ergocalciferol (Vitamin D) 50,000 Unit Cap, 1 CAP PO QWEEKLY 01/07/24 Omeprazole (Omeprazole Dr) 40 Mg Cap, 1 CAP PO DAILY for 90 Days, #90 01/07/24 Aspirin (Aspirin Low Dose) 81 Mg Chw, 1 TAB PO DAILY 01/07/24 Sevelamer Carbonate (Renvela) 800 Mg Tab, 2 TAB PO TID 01/07/24 Carvedilol (Carvedilol) 25 Mg Tab, 1 TAB PO BID for 90 Days, #180 01/07/24 Oxycodone HCl (Oxycodone Hydrochloride) 15 Mg Tab, 1 TAB PO QID for 30 Days, #120 01/07/24 Information Source: Patient Mode of Arrival: Ambulatory Severity: Moderate Timing: Hours Duration: Since onset, Hours Prehospital treatment: None Past Medical History PAST MEDICAL HISTORY: CAD, CHF, COPD, DM, ESRD (M, W, F), HTN, NH Surgical History: CABG, PTCA Surgical History (Other): Coronary artery disease Family History Family History: Reviewed,noncontributory to illness, No family hx of HTN, Unknown Social History Smoker: Non-Smoker Alcohol: Denies ETOH Use Drugs: Denies Drug Use Lives In: Home Constitutional: denies: chills, diaphoresis, fatigue, fever, malaise, sweats, weakness, others EENTM: denies: blurred vision, double vision, ear bleeding, ear discharge, ear drainage, ear pain, ear ringing, eye pain, eye redness, hearing loss, mouth pain, mouth swelling, nasal discharge, nose bleeding, nose congestion, nose pain, photophobia, tearing, throat pain, throat swelling, voice changes, others Respiratory: denies: cough, hemoptysis, orthopnea, SOB at rest, shortness of breath, SOB with excertion, stridor, wheezing, others Cardiovascular: reports: others (Bradycardic); denies: chest pain, dizzy spells, diaphoresis, Dyspnea on exertion, edema, irregular heart beat, left arm pain, lightheadedness, palpitations, PND, syncope Gastrointestinal: denies: abdomen distended, abdominal pain, blood streaked bowels, constipated, diarrhea, dysphagia, difficulty swallowing, hematemesis, melena, nausea, poor appetite, poor fluid intake, rectal bleeding, rectal pain, vomiting, others Genitourinary: denies: burning, dysuria, flank pain, frequency, hematuria, incontinence, penile discharge, penile sore, pain, testicle pain, testicle swelling, urgency, others Neurological: denies: dizziness, fainting, headache, left sided numbness, left sided weakness, numbness, paresthesia, pre-existing deficit, right sided numbness, right sided weakness, seizure, speech problems, tingling, tremors, weakness, others Musculoskeletal: denies: back pain, gout, joint pain, joint swelling, muscle pain, muscle stiffness, neck pain, others Integumetry: denies: bruises, change in color, change in hair/nails, dryness, laceration, lesions, lumps, rash, wounds, others Allergic/Immunocompromised: denies: Difficulty Healing, Frequent Infections, Hives, Itching, others Hematologic/Lymphatic: denies: anemia, blood clots, easy bleeding, easy bruising, swollen glands, others Endocrine: denies: excessive hunger, excessive sweating, excessive thirst, excessive urination, flushing, intolerance to cold, intolerance to heat, unexplained weight gain, unexplained weight loss, others Psychiatric: denies: anxiety, bipolar disorder, depression, hopeless, panic disorder, schizophrenia, sleepless, suicidal, others All Other Systems: Reviewed and Negative Physical Exam General Appearance: No Apparent Distress, Normal HEENT: Normal ENT Inspection, Pharynx Normal, TMs Normal Neck: Full Range of Motion, Non-Tender, Normal, Normal Inspection Respiratory: Chest Non-Tender, Lungs Clear, No Accessory Muscle Use, No Respiratory Distress, Normal Breath Sounds Cardiovascular: Bradycardia, No Edema, No JVD, No Murmur, No Gallop, Normal Peripheral Pulses Breast Exam: Deferred Gastrointestinal: No Organomegaly, Non Tender, No Pulsatile Mass, Normal Bowel Sounds, Soft Genitalia: Deferred Pelvic: Deferred Rectal: Deferred Extremities: No calf tenderness, Normal capillary refill, Normal inspection, Normal range of motion, Non-tender, No pedal edema Musculoskeletal : Apperance: Normal Neurologic: Alert, book repairer II-XII nml as Tested, No Motor Deficits, Normal Affect, Normal Mood, No Sensory Deficits Cerebellar Function: Normal Reflexes: Normal Skin: Dry, Normal Color, Warm Lymphatic: No Adenopathy Was a procedure done? Was a procedure done?: No Differential Dx Considerations may include: ACS, chf, dehydration, electrolyte disorder, hypoglycemia, hypotension, bradycardia X-Ray, Labs, Meds, VS Vital Signs Date Time Temp Pulse Resp B/P (MAP) Pulse Ox O2 Delivery O2 Flow Rate FiO2 01/04/25 18:24 74 01/04/25 18:00 73 22 132/67 (88) 100 01/04/25 17:23 97.7 86 20 135/66 (89) 100 97.7 01/04/25 17:23 87 20 99 Nasal Cannula* 2 28 01/04/25 16:00 98.4 72 18 120/54 (76) 100 98.4 01/04/25 15:38 82 Lab Test 01/04/25 17:51 01/04/25 17:06 01/04/25 16:11 Range/Units Troponin I High Sensitivity 71 *H 74 *H </=54 ng/L POC Glucose 107 H 70-106 mg/dl White Blood Count 3.2 L 4.4-10.8 10^3/uL Red Blood Count 2.81 L 4.5-5.90 10^6/uL Hemoglobin 9.5 L 13.5-17.5 g/dL Hematocrit 28.4 L 41.0-53.0 % Mean Corpuscular Volume 101.2 H 80.0-100.0 fL Mean Corpuscular Hemoglobin 33.9 H 28.0-32.0 pg Mean Corpuscular Hemoglobin Concent 33.5 32.0-36.0 g/dL Red Cell Distribution Width 15.6 H 11.8-14.3 % Platelet Count 209 140-450 10^3/uL Mean Platelet Volume 7.1 6.9-10.8 fL Neutrophils (%) (Auto) 37.0-80.0 % Lymphocytes (%) (Auto) 10.0-50.0 % Monocytes (%) (Auto) 0.0-12.0 % Basophils (%) (Auto) 0.0-2.0 % Neutrophils # (Auto) 1.6-8.6 10 ^3/uL Lymphocytes # (Auto) 0.4-5.4 10 ^3/uL Monocytes # (Auto) 0-1.3 10 ^3/uL Differential Total Cells Counted Pending Neutrophils % (Manual) Pending Band Neutrophils % (Manual) Pending Lymphocytes % (Manual) Pending Monocytes % (Manual) Pending Eosinophils % (Manual) Pending Basophils % (Manual) Pending Metamyelocytes % (manual) Pending Myelocytes % (Manual) Pending Promyelocytes % (Manual) Pending Blast Cells % (Manual) Pending Reactive Lymphocytes Pending Platelet Estimate Pending Sodium Level 138 136-145 mmol/L Potassium Level 4.0 3.5-5.1 mmol/L Chloride Level 99 98-107 mmol/L Carbon Dioxide Level 28 20-31 mmol/L Anion Gap 11 5-15 Blood Urea Nitrogen 55 H 9-23 mg/dL Creatinine 8.80 H 0.700-1.30 mg/dL Glomerular Filtration Rate Calc 6 >90 mL/min BUN/Creatinine Ratio 6.3 L 10.0-20.0 Serum Glucose 100 74-106 mg/dL Calcium Level 10.4 8.7-10.4 mg/dL B-Type Natriuretic Peptide 2824.96 0-100 pg/mL Time of 1ST Reevaluation: 16:20 Reevaluation 1ST: Unchanged Time of 2ND Reevaluation: 18:44 Reevaluation 2ND: Unchanged Patient Education/Counseling: Diagnosis, Treatment, Prognosis, Need For Follow Up Family Education/Counseling: No Family Present Comments pt is a dialysis and cardiac patient, with HR in the 40-50s, with bigeminy when arrived by EMS and feeling subjectively weak and lightheaded. he is improved, but is a frail patient. he will be admitted for further evaluation of the episode, his K is not elevated SEPSIS Sepsis Screen Physician Orders Electrocardigram (01/04/25 15:40) Complete Blood Count (01/04/25 15:48) Chest Portable (01/04/25 15:48) Troponin-I Hs (01/04/25 18:48) Continuous Ekg Monitoring 08,12,16,20,00,04 (01/04/25 15:48) Manual Differential (01/04/25 16:11) Vital Signs Date Time Temp Pulse Resp B/P (MAP) Pulse Ox O2 Delivery O2 Flow Rate FiO2 01/04/25 18:24 74 6/30/25 18:00 73 22 132/67 (88) 100 01/04/25 17:23 97.7 86 20 135/66 (89) 100 97.7 01/04/25 17:23 87 20 99 Nasal Cannula* 2 28 01/04/25 16:00 98.4 72 18 120/54 (76) 100 98.4 01/04/25 15:38 82 Laboratory Tests Test 01/04/25 16:11 White Blood Count 3.2 10^3/uL (4.4-10.8) L Departure 1 Departure Time of Disposition: 18:46 Impression: Primary Impression: Symptomatic bradycardia Additional Impressions: Bigeminy Renal failure Qualified Codes: N18.6 - End stage renal disease; Z99.2 - Dependence on renal dialysis Generalized weakness Disposition: ADMITTED INPATIENT Admit to: Tele Condition: Serious Discharged With: Self Critical Care Note Critical Care Time?: Yes (45 min-critical care time only) Critical care comment: Due to concerns for patients condition deteriorating, the care required my highest level of attention and readiness to intervene. I assessed the patient, reviewed the medical records, ordered the appropriate tests and treatments, then reassessed for results and responsiveness. I communicated with medical personnel and consultants and formulated a plan of care. Total critical care time excludes any procedures Stability Stability form required: No Heart Score Heart Score: Heart Score Response (Comments) Value History Highly Suspicious 2 EKG Repolarization Disturb 1 Age >65 2 Risk Factors >3 or Hx ASHD 2 Troponin Normal limit 0 Total 7 I personally scribed for RAJ HANSEN MD ([email or web address]) on 01/04/25 at 16:04. Electronically submitted by Angel Luis Garcia ([email or web address]). RAJ HANSEN MD Jan 04, 2025 16:04
[2025-01-04 16:50] LABS: Chloride 99 mmol/L (98-107); Potassium 4.0 mmol/L (3.5-5.1); Sodium 138 mmol/L (136-145)
[2025-01-04 16:51] LABS: Anion Gap 11 (5-15); Carbon Dioxide 28 mmol/L (20-31)
[2025-01-04 16:52] LABS: Calcium 10.4 mg/dL (8.7-10.4)
[2025-01-04 16:56] LABS: BUN/Creatinine Ratio 6.3 (10.0-20.0); Glucose 100 mg/dL (74-106)
[2025-01-04 16:59] LABS: Blood Urea Nitrogen 55 mg/dL (9-23)
[2025-01-04 17:23] VITALS: PULSE 87; RESP 20; O2SAT 99
[2025-01-04 17:46] LABS: Hematocrit 28.4 % (41.0-53.0); Hemoglobin 9.5 g/dL (13.5-17.5); Mean Corpuscular Hemoglobin 33.9 pg (28.0-32.0); Mean Corpuscular Volume 101.2 fL (80.0-100.0)
[2025-01-04 19:30] VITALS: PULSE 71; RESP 16; O2SAT 98
[2025-01-04 20:01] LABS: Total Cells Counted 100.0 (100)
[2025-01-04 20:05] LABS: Macrocytosis Slight
--- NOTE | 2025-01-04 20:16 | DVH ---
EXAM: XR Chest, 1 View CLINICAL INDICATION: chf TECHNIQUE: Frontal view of the chest. COMPARISON: No relevant prior studies available. FINDINGS: LUNGS AND PLEURAL SPACES: Left basilar atelectasis or pneumonia. Left pleural effusion. No pneumo thorax. HEART: Unremarkable. No cardiomegaly. MEDIASTINUM: Unremarkable. Normal mediastinal contour. BONES/JOINTS: Unremarkable. No acute fracture. TUBES, LINES AND DEVICES: Left-sided cardiac pacemaker. OTHER FINDINGS: Comparison XY CHEST PORTABLE on DOS: 12/15/24, XY CHEST PORTABLE on DOS: 12/13/24, XY CHEST PORTABLE on DOS: 12/11/24, XY CHEST PORTABLE on DOS: 12/10/24, XY CHEST PORTABLE on DOS: 12/09/24. IMPRESSION: Left basilar atelectasis or pneumonia. HS:Y
[2025-01-04] MEDS ORDERED: NITROGLYCERIN 0.4 MG SL TAB SL PRN (22:00)
[2025-01-04] MEDS ORDERED: MORPHINE SULFATE INJ 2 MG/ml SYRG IV PRN (22:00)
[2025-01-04] MEDS: cefTRIAXone 1GM/50ML D5W 50 ML IV ONE (22:30)
[2025-01-04 22:35] VITALS: BP 135/67; PULSE 83; RESP 14; TEMP 97.9; O2SAT 100
[2025-01-04] MEDS: AZITHROMYCIN 250 MG TAB PO ONE (22:57)
[2025-01-04] MEDS: FUROSEMIDE 100 MG/10ML VIAL IV ONE (22:58)
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
[2025-01-05] VITALS (13 sets, daily range): BP systolic 125–150; BP diastolic 55–85; PULSE 71–89; RESP 16–19; TEMP 97.8–98.4; O2SAT 95–100
--- NOTE | 2025-01-05 01:39 | DVH ---
Exam: US CHEST ULTRASOUND Clinical History: lt sided pleural effusion. Comparison: US CHEST ULTRASOUND on DOS: 12/08/24, US CHEST ULTRASOUND on DOS: 12/01/24, CT CHEST WITHOUT CONTRAST on DOS: 03/25/24 Technique: Targeted sonographic evaluation of the soft tissues of the left and right lower chest was obtained ut ilizing grayscale and color Doppler imaging. Findings/Impression: Evidence of small left-sided pleural effusion.
[2025-01-05] MEDS: ALBUTEROL SULF 2.5 MG/0.5ML(0.5%) NEB SOLN NEB SCH (06:24)
[2025-01-05 07:26] LABS: Alanine Aminotransferase 11 U/L (7-40); Albumin 3.8 g/dL (3.2-4.8); Alkaline Phosphatase 105 U/L (46-116); Anion Gap 11 (5-15); BUN/Creatinine Ratio 5.8 (10.0-20.0); Carbon Dioxide 30 mmol/L (20-31); Potassium 4.1 mmol/L (3.5-5.1); Sodium 139 mmol/L (136-145); Total Protein 6.4 g/dL (5.7-8.2)
[2025-01-05 07:37] LABS: Bilirubin, Total 0.2 mg/dL (0.2-1.0); Blood Urea Nitrogen 60 mg/dL (9-23); Calcium 10.9 mg/dL (8.7-10.4); Chloride 98 mmol/L (98-107); Glucose 117 mg/dL (74-106); Magnesium 2.8 mg/dL (1.6-2.6)
[2025-01-05] MEDS: SEVELAMER 800 MG TAB PO SCH (08:08)
[2025-01-05 09:50] LABS: Hematocrit 32.3 % (41.0-53.0); Hemoglobin 10.7 g/dL (13.5-17.5); Mean Corpuscular Hemoglobin 32.6 pg (28.0-32.0); Mean Corpuscular Volume 98.2 fL (80.0-100.0)
[2025-01-05] MEDS ORDERED: FUROSEMIDE 40 MG TAB PO SCH (10:00)
[2025-01-05] MEDS ORDERED: HEPARIN SODIUM (PORCINE) 5000 UNITS/ML 1ML VIAL SC SCH (10:00)
[2025-01-05 11:01] LABS: Total Cells Counted 100.0 (100)
[2025-01-05 11:07] LABS: COVID19 ANTIGEN SOFIA FIA NEGATIVE (NEGATIVE)
[2025-01-05 11:19] LABS: Urine Protein, UAD 2+ (Negative)
[2025-01-05] MEDS: SODIUM CHL 0.9% 1000 ML BAG XX ONE (11:30)
[2025-01-05 11:32] LABS: Benzodiazephine Screen, Urine Neg (NEGATIVE)
[2025-01-05 11:33] LABS: Amphetamine Screen, Urine Neg (NEGATIVE); Barbiturate Scree,Urine Neg (NEGATIVE); Cannabinoid Screen, Urine Neg (NEGATIVE); Cocaine Screen, Urine Neg (NEGATIVE); Opiate Scree,Urine Neg (NEGATIVE); Phencyclidine Screen, Urine Neg (NEGATIVE)
--- NOTE | 2025-01-05 12:31 | DVH ---
Carotid Duplex Date: 01/05/2025 11:08 AM Clinical History: lightheaded Comparison: None Technique: Duplex Doppler evaluation of the extracranial carotid and vertebral arteries including col or Doppler and spectral/pulsed waveform analysis was performed. Findings: Velocities and ratios within normal limits IMPRESSION: No hemodynamically significant stenosis noted in the right carotid system. No hemodynamically significant stenosis noted in the left carotid system. Reference: Radiology 2003; [id number]
[2025-01-05] MEDS: IPRATROPIUM BROM 0.5 MG/2.5ML INH SOL NEB SCH (12:55)
--- NOTE | 2025-01-05 13:24 | DVHINCON2 ---
Date Seen: Jan 05, 2025 Referring Physician MD Shadi Reason for Consultation AICD interrogation with symptomatic bradycardia, CHF History of Present Illness This is a 74-year-old man who presented to the emergency room via EMS with a chief complaint of generalized weakness yesterday. Per patient, he had an uneventful morning until late in the morning when his Physical Therapist arrived as scheduled and took his vital signs finding a HR fluctuating in between 31-41 bpm which prompted to call 911. Per patient, he felt slight lightheadedness and generalized weakness. At time of assessment he denies any symptoms including dizziness, generalized weakness, SHARP, visual disturbances, SOB, chest pain, or palpitations. He was medicated with NS x250 mLs EN route to the hospital. Significant medical history includes severe coronary artery disease status post triple-vessel CABG (01/2024) status post successful PTCA and stenting with shockwave lithotripsy of the LAD x 1 MENDEZ on 09/01/2024 (on ASA/Plavix), ischemic cardiomyopathy with EF 35-40%, sick sinus syndrome status post right-sided single-lead AICD (Biotronik, 11/04/2024), hypertension, dyslipidemia, COPD O2 dependence, end-stage renal disease on hemodialysis T-, type 2 diabetes mellitus, previous tobacco use, and benign prostatic hyperplasia. Past Medical History Past medical history reviewed. No other significant than mentioned above. Past Surgical History PTCA and stenting with shockwave lithotripsy of the LAD x 1 MENDEZ, 09/01/2024 Triple-vessel CABG at [facility], 01/2024 Hemodialysis access TURP Family History: FH: cancer G8 MOTHER FH: heart disease G8 FATHER Family History Family history reviewed. Social History Denies the use of illicit drugs, alcohol, or tobacco use. Allergies: Coded Allergies: NO KNOWN ALLERGIES (Unverified , 01/05/24) Home Meds Active Scripts Ipratropium Tutor Key (Ipratropium Tutor Key) 0.02 % Brittany, 0.5 % HHN QIDP for 30 Days, #90 ML 3 Refills Prov:CRAIG NAZARIO MD 12/17/24 Albuterol Sulfate (Albuterol Sulfate) 1.25 Mg/3 Ml Neb, 1.25 MG IN QIDP for 30 Days, #90 INH 2 Refills Prov:CRAIG NAZARIO MD 12/17/24 Reported Medications Magnesium Oxide (Magnesium Oxide) 400 Mg Tab, 1 TAB PO DAILY for 90 Days, #90 10/29/24 Meloxicam (Meloxicam) 15 Mg Tab, 1 TAB PO DAILY for 30 Days, #30 10/29/24 Sacubitril-Valsartan (Entresto 24-26 mg) 1 Tab Tab, 1 TAB PO BID for 30 Days, #60 10/29/24 Nitroglycerin (Nitrostat) 0.4 Mg Sub, 1 TAB PO UD for 33 Days, #100 10/29/24 Atorvastatin Calcium (ATORVASTATIN CALCIUM) 40 Mg Tab, 1 TAB PO DAILY for 90 Days, #90 10/29/24 Isosorbide Mononitrate (Isosorbide Mononitrate Er) 30 Mg Tab, 1 TAB PO DAILY for 90 Days, #90 10/29/24 Clopidogrel Bisulfate (CLOPIDOGREL) 75 Mg Tab, 1 TAB PO DAILY for 90 Days, #90 10/29/24 Ranolazine (Ranolazine ER) 500 Mg Tab, 1 TAB PO BID for 30 Days, #60 10/29/24 Furosemide (Furosemide) 40 Mg Tab, 1 TAB PO DAILY for 90 Days, #90 01/07/24 Ergocalciferol (Vitamin D) 50,000 Unit Cap, 1 CAP PO QWEEKLY 01/07/24 Omeprazole (Omeprazole Dr) 40 Mg Cap, 1 CAP PO DAILY for 90 Days, #90 01/07/24 Aspirin (Aspirin Low Dose) 81 Mg Chw, 1 TAB PO DAILY 01/07/24 Sevelamer Carbonate (Renvela) 800 Mg Tab, 2 TAB PO TID 01/07/24 Carvedilol (Carvedilol) 25 Mg Tab, 1 TAB PO BID for 90 Days, #180 01/07/24 Oxycodone HCl (Oxycodone Hydrochloride) 15 Mg Tab, 1 TAB PO QID for 30 Days, #120 01/07/24 Home Meds Home medications reviewed. Current Medications Current Medications Medications (Trade) Dose Ordered Sig/Edson Route PRN Reason Start Time Stop Time Status Last Admin Morphine Sulfate 2 mg Q30M PRN IV FOR CHEST PAIN 01/04/25 22:00 Nitroglycerin (Ntrostat Sublingual) 0.4 mg Q5MINP PRN SL FOR CHEST PAIN 01/04/25 22:00 Clopidogrel Bisulfate (Plavix) 75 mg DAILY PO 01/05/25 10:00 Furosemide (Lasix Tablet) 40 mg DAILY PO 01/05/25 10:00 01/05/25 09:31 DC Ranolazine (Ranexa ER) 500 mg BID PO 01/05/25 10:00 Sacubitril/ Valsartan (Entresto 24-26 Mg tab) 1 tab BID PO 01/05/25 10:00 Aspirin 81 mg DAILY PO 01/05/25 10:00 Atorvastatin Calcium (Lipitor) 40 mg HS PO 01/05/25 22:00 Isosorbide Mononitrate (Imdur Er Tablet) 30 mg DAILY PO 01/05/25 10:00 Sevelamer HCl (Renagel) 1,600 mg TIDWM PO 01/05/25 08:00 01/05/25 08:08 Ceftriaxone Sodium 50 ml @ 100 mls/hr Q24H IV 01/05/25 23:00 Azithromycin (Zithromax Tablet) 500 mg Q24H PO 01/05/25 23:00 01/05/25 08:31 DC Albuterol (Ventolin Medneb) 2.5 mg Q6HWA [facility] 01/05/25 06:00 01/05/25 12:55 Famotidine (Pepcid Tablet) 10 mg Q48H PO 01/05/25 10:00 Heparin Sodium (Porcine) 5,000 units Q12HR SC 01/05/25 10:00 Cancel Furosemide (Lasix Injection) 40 mg DAILY IV 01/05/25 10:00 Ipratropium Tutor Key (Atrovent Medneb) 0.5 mg Q6HWA [facility] 01/05/25 12:00 01/05/25 12:55 Heparin Sodium (Porcine) 5,000 units Q12HR SC 01/05/25 22:00 Review of Systems Constitutional: Generalized weakness Ears, Nose, & Throat: No symptom reported Eyes: No symptom reported Neurological: Lightheadedness Pulmonary/Respiratory: No symptom reported Cardiovascular: No symptom reported Gastrointestinal: No symptom reported Genitourinary: No symptom reported Musculoskeletal: No symptom reported Skin: No symptom reported Psychiatric: No symptom reported Endocrine: No symptom reported Hemotologic/Lymphatic: No symptom reported Vital Signs Vital Signs Date Time Temp Pulse Resp B/P (MAP) Pulse Ox O2 Delivery O2 Flow Rate FiO2 01/05/25 13:01 74 16 100 01/05/25 12:55 Nasal Cannula 2.0 01/05/25 12:55 28 01/05/25 05:00 98.4 125/70 (88) 98.4 Physical Exam General Appearance: Cooperative. Well developed. Well nourished. In no acute distress Head Exam: Normal inspection Neck Exam: Normal inspection. Non-tender. Normal alignment Pulmonary/Respiratory: Chest non-tender. Clear bilateral breath sounds Cardiovascular/Chest: Regular rate and rhythm. S1, S2. Sinus rhythm. No murmurs. No JVD. Peripheral Pulses: 2+ Radial (R). 2+ Radial (L). 2+ Pedal (R). 2+ Pedal (L) Abdominal Exam: Normal bowel sounds. Soft. Nontender. No hepatospenomegaly. No masses Ankle Exam: Negative ankle edema Lower extremities: Negative lower extremity edema Neuro/Mental Status: A&O x4. Coherent Thoughts/Psych: Normal thought pattern. Appropriate mood and affect. Good judgement and insight Appearance: In no acute distress Skin Exam: Normal inspection. Normal color. Warm. Dry Labs/Diagnostic Data Labs Test 01/05/25 11:00 01/05/25 10:30 01/05/25 06:52 01/04/25 20:51 Range/Units Urine Color Light-yellow Yellow Urine Clarity Clear Clear Urine pH 8.0 5.0-9.0 Urine Specific [place] 1.010 1.001-1.035 Urine Protein 2+ H Negative Urine Ketones Negative Negative Urine Blood Negative Negative /uL Urine Nitrite Negative Negative Urine Bilirubin Negative Negative Urine Urobilinogen Normal Negative mg/dL Urine Leukocyte Esterase 2+ Negative /uL Urine RBC 1 0 - 3 /hpf Urine Microscopic WBC 21 H 0-3 /HPF Urine Squamous Epithelial Cells Few <5 /hpf Urine Bacteria Few H None Seen /hpf Urine Glucose 1+ H Normal mg/dL Lactic Acid Level 1.6 0.4-2.0 mmol/L Urine Opiates Screen Neg NEGATIVE Urine Fentanyl Screen Neg NEGATIVE Urine Barbiturates Screen Neg NEGATIVE Urine Phencyclidine Screen Neg NEGATIVE Urine Amphetamines Screen Neg NEGATIVE Urine Benzodiazepines Screen Neg NEGATIVE Urine Cocaine Screen Neg NEGATIVE Urine Cannabinoids Screen Neg NEGATIVE Influenza Type A Antigen Negative Negative Influenza Type B Antigen Negative Negative SARS-CoV-2 Antigen (Rapid) Negative NEGATIVE White Blood Count 2.6 L 4.4-10.8 10^3/uL Red Blood Count 3.29 L 4.5-5.90 10^6/uL Hemoglobin 10.7 L 13.5-17.5 g/dL Hematocrit 32.3 #L 41.0-53.0 % Mean Corpuscular Volume 98.2 80.0-100.0 fL Mean Corpuscular Hemoglobin 32.6 H 28.0-32.0 pg Mean Corpuscular Hemoglobin Concent 33.2 32.0-36.0 g/dL Red Cell Distribution Width 15.2 H 11.8-14.3 % Platelet Count 203 140-450 10^3/uL Mean Platelet Volume 7.4 6.9-10.8 fL Neutrophils (%) (Auto) 37.0-80.0 % Lymphocytes (%) (Auto) 10.0-50.0 % Monocytes (%) (Auto) 0.0-12.0 % Basophils (%) (Auto) 0.0-2.0 % Neutrophils # (Auto) 1.6-8.6 10 ^3/uL Lymphocytes # (Auto) 0.4-5.4 10 ^3/uL Monocytes # (Auto) 0-1.3 10 ^3/uL Differential Total Cells Counted 100.0 100 Neutrophils % (Manual) 58 37.0-80.0 Band Neutrophils % (Manual) 0 Lymphocytes % (Manual) 28 10.0-50.0 Monocytes % (Manual) 11 0-12 Eosinophils % (Manual) 3 0-7 Basophils % (Manual) 0 0.0-2.0 Metamyelocytes % (manual) 0 Myelocytes % (Manual) 0 Promyelocytes % (Manual) 0 Blast Cells % (Manual) 0 Reactive Lymphocytes 0 Platelet Estimate Adequate Sodium Level 139 136-145 mmol/L Potassium Level 4.1 3.5-5.1 mmol/L Chloride Level 98 98-107 mmol/L Carbon Dioxide Level 30 20-31 mmol/L Anion Gap 11 5-15 Blood Urea Nitrogen 60 H 9-23 mg/dL Creatinine 10.40 *H 0.700-1.30 mg/dL Glomerular Filtration Rate Calc 5 >90 mL/min BUN/Creatinine Ratio 5.8 L 10.0-20.0 Serum Glucose 117 H 74-106 mg/dL Hemoglobin A1c 5.2 <5.7 % A1C Calcium Level 10.9 H 8.7-10.4 mg/dL Phosphorus Level 4.3 2.4-5.1 mg/dL Magnesium Level 2.8 H 1.6-2.6 mg/dL Total Bilirubin 0.2 0.2-1.0 mg/dL Aspartate Amino Transferase (AST) 18 13-40 U/L Alanine Aminotransferase (ALT) 11 7-40 U/L Alkaline Phosphatase 105 46-116 U/L Total Protein 6.4 5.7-8.2 g/dL Albumin 3.8 3.2-4.8 g/dL Vitamin B12 Level 461 211-911 pg/mL Vitamin D 25-Hydroxy 51.6 30.0-100 ng/mL Folic Acid 9.25 >5.38 ng/mL Thyroid Stimulating Hormone (TSH) 0.51 L 0.55-4.78 uIU/mL Parathyroid Hormone (Intact) 350.5 H 18.4-80.1 pg/mL Troponin I High Sensitivity 75 *H </=54 ng/L Test 01/04/25 17:06 01/04/25 16:11 Range/Units POC Glucose 107 H 70-106 mg/dl Microcytosis Macrocytosis Slight B-Type Natriuretic Peptide 2824.96 0-100 pg/mL Assessment Chronic compensated HFrEF, NYHA class III Severe coronary artery disease with triple-vessel CABG s/p PCI of the LAD x 1DES (on ASA and Plavix) Presence of single-lead right-sided AICD (Biotronik, 11/04/2024) End-stage renal disease on hemodialysis (//Sat) NSTEMI, likely type II secondary to above Dyslipidemia COPD with oxygen dependence Type 2 diabetes mellitus Anemia in chronic disease History of tobacco use Plan/Recommendation (Dr. Diaz) Transthoracic echocardiogram revealed EF 35-40% with global hypokinesis (10/30/24). Continue guideline directed medical therapy for CHF as renal function (BB and Entresto). Mineralcorticoid and SGLP2 inhibitor contraindicated given ESRD. hospital monitor reviewed, rhythms strips, and 12- lead electrocardiogram with no evidence of bradycardic events, sinus pauses, or AV blocks. Doubt bradycardic events given pacemaker implantation with optimal lead placement on CXR and no evidence of lead fracture. The patient does present with multiple PVCs which could be the trigger of low HR reading at home. Interrogation completed revealing an optimal functioning AICD device with evidence on NSVT events and no bradyarrhythmias (see full report in chart). Continue dual-antiplatelet therapy and lipid-lowering agent. Nephrology recommendations for HD (//Sat). Follow-up with Dr. Cardona as scheduled on 02/11/2025 at 1130. In the further cardiac workup indicated at this time. Kindly call if in need to re-consult. Thank you for allowing us to participate in this patient's care. This medical document was created using an electronic medical record system with voice recognition software and computerized dictation system. Although this document has been carefully reviewed, there might still be some phonetic and typographical errors. Occasional wrong-word or ``sound-alike substitutions may have occurred due to the inherent limitations of voice recognition software. These areas are purely typographical due to imperfections of the software programs and do not reflect any compromise in the patient's medical care. Please read the chart carefully and recognize, using context, where these substitutions have occurred. Plan discussed with: Patient, Other NYHA Physical activity limitations: Class3(Marked) ordinary (activity causes symtoms) Date of Service: Jan 05, 2025 Billing Provider: AMRYANNE ADAMS Cardiology Common Codes: 55016-VHMSHGM INP/OBS CARE (High) MARYANNE ADAMS Jan 05, 2025 13:24
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
[2025-01-05] MEDS: ISOSORBIDE MONONITRATE ER 60 MG TAB PO SCH (17:02)
[2025-01-05] MEDS: CLOPIDOGREL BISULFATE 75 MG TAB PO SCH (17:02)
[2025-01-05] MEDS: SACUBITRIL-VALSARTAN 24mg/26mg TAB PO SCH (17:03)
[2025-01-05] MEDS: FUROSEMIDE 40 MG/4 ML VIAL IV SCH (17:03)
[2025-01-05] MEDS: RANOLAZINE ER 500 MG TAB PO SCH (17:03)
[2025-01-05] MEDS: FAMOTIDINE 20 MG TAB PO SCH (17:07)
--- NOTE | 2025-01-05 17:58 | ECG ---
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
--- NOTE | 2025-01-05 18:52 | DVHINCON2 ---
Date of service: Jan 05, [address] Mortensen Reason for Consultation End-stage kidney disease History of Present Illness This is a 74-year-old male with history of end-stage kidney disease on hemodialysis on Saturday schedule, coronary artery disease status post stenting and CABG, status post AICD placement, COPD on home oxygen, type 2 diabetes, hepatitis-C presenting to the emergency room because of symptomatic bradycardia. As with a history obtained from the patient while undergoing physical therapy yesterday felt dizzy. Physical therapist checked his blood pressure and has a pulse which was noted to be in the low 30s. Hence sent to the emergency room. Patient admitted for further evaluation and workup. Initiated on antibiotics for probable pneumonia. Carvedilol put on hold. Nephrology consulted for continuation of dialysis. Patient's last dialysis was on Saturday. Past Medical History As stated above Past Surgical History As stated above Family History: FH: cancer G8 MOTHER FH: heart disease G8 FATHER Social History Ex-smoker. No active history of smoking, alcohol or drug abuse Allergies: Coded Allergies: NO KNOWN ALLERGIES (Unverified , 01/05/24) Home Meds Active Scripts Ipratropium [place] (Ipratropium [place]) 0.02 % Brittany, 0.5 % HHN QIDP for 30 Days, #90 ML 3 Refills Prov:CRAIG NAZARIO MD 12/17/24 Albuterol Sulfate (Albuterol Sulfate) 1.25 Mg/3 Ml Neb, 1.25 MG IN QIDP for 30 Days, #90 INH 2 Refills Prov:CRAIG NAZARIO MD 12/17/24 Reported Medications Magnesium Oxide (Magnesium Oxide) 400 Mg Tab, 1 TAB PO DAILY for 90 Days, #90 10/29/24 Meloxicam (Meloxicam) 15 Mg Tab, 1 TAB PO DAILY for 30 Days, #30 10/29/24 Sacubitril-Valsartan (Entresto 24-26 mg) 1 Tab Tab, 1 TAB PO BID for 30 Days, #60 10/29/24 Nitroglycerin (Nitrostat) 0.4 Mg Sub, 1 TAB PO UD for 33 Days, #100 10/29/24 Atorvastatin Calcium (ATORVASTATIN CALCIUM) 40 Mg Tab, 1 TAB PO DAILY for 90 Days, #90 10/29/24 Isosorbide Mononitrate (Isosorbide Mononitrate Er) 30 Mg Tab, 1 TAB PO DAILY for 90 Days, #90 10/29/24 Clopidogrel Bisulfate (CLOPIDOGREL) 75 Mg Tab, 1 TAB PO DAILY for 90 Days, #90 10/29/24 Ranolazine (Ranolazine ER) 500 Mg Tab, 1 TAB PO BID for 30 Days, #60 10/29/24 Furosemide (Furosemide) 40 Mg Tab, 1 TAB PO DAILY for 90 Days, #90 01/07/24 Ergocalciferol (Vitamin D) 50,000 Unit Cap, 1 CAP PO QWEEKLY 01/07/24 Omeprazole (Omeprazole Dr) 40 Mg Cap, 1 CAP PO DAILY for 90 Days, #90 01/07/24 Aspirin (Aspirin Low Dose) 81 Mg Chw, 1 TAB PO DAILY 01/07/24 Sevelamer Carbonate (Renvela) 800 Mg Tab, 2 TAB PO TID 01/07/24 Carvedilol (Carvedilol) 25 Mg Tab, 1 TAB PO BID for 90 Days, #180 01/07/24 Oxycodone HCl (Oxycodone Hydrochloride) 15 Mg Tab, 1 TAB PO QID for 30 Days, #120 01/07/24 Current Medications Current Medications Medications (Trade) Dose Ordered Sig/Edson Route PRN Reason Start Time Stop Time Status Last Admin Morphine Sulfate 2 mg Q30M PRN IV FOR CHEST PAIN 01/04/25 22:00 Nitroglycerin (Ntrostat Sublingual) 0.4 mg Q5MINP PRN SL FOR CHEST PAIN 01/04/25 22:00 Clopidogrel Bisulfate (Plavix) 75 mg DAILY PO 01/05/25 10:00 01/05/25 17:02 Furosemide (Lasix Tablet) 40 mg DAILY PO 01/05/25 10:00 01/05/25 09:31 DC Ranolazine (Ranexa ER) 500 mg BID PO 01/05/25 10:00 01/05/25 17:03 Sacubitril/ Valsartan (Entresto 24-26 Mg tab) 1 tab BID PO 01/05/25 10:00 01/05/25 17:03 Aspirin 81 mg DAILY PO 01/05/25 10:00 01/05/25 17:06 Atorvastatin Calcium (Lipitor) 40 mg HS PO 01/05/25 22:00 Isosorbide Mononitrate (Imdur Er Tablet) 30 mg DAILY PO 01/05/25 10:00 01/05/25 17:02 Sevelamer HCl (Renagel) 1,600 mg TIDWM PO 01/05/25 08:00 01/05/25 18:15 Ceftriaxone Sodium 50 ml @ 100 mls/hr Q24H IV 01/05/25 23:00 Azithromycin (Zithromax Tablet) 500 mg Q24H PO 01/05/25 23:00 01/05/25 08:31 DC Albuterol (Ventolin Medneb) 2.5 mg Q6HWA NEB 01/05/25 06:00 01/05/25 12:55 Famotidine (Pepcid Tablet) 10 mg Q48H PO 01/05/25 10:00 01/05/25 17:07 Heparin Sodium (Porcine) 5,000 units Q12HR SC 01/05/25 10:00 Cancel Furosemide (Lasix Injection) 40 mg DAILY IV 01/05/25 10:00 01/05/25 17:03 Ipratropium [place] (Atrovent Medneb) 0.5 mg Q6HWA NEB 01/05/25 12:00 01/05/25 12:55 Heparin Sodium (Porcine) 5,000 units Q12HR SC 01/05/25 22:00 Carvedilol (Coreg Tablet) 3.125 mg Q12HR PO 01/05/25 22:00 Review of Systems 12 point review of system negative except as stated in the HPI Vital Signs Vital Signs Date Time Temp Pulse Resp B/P (MAP) Pulse Ox O2 Delivery O2 Flow Rate FiO2 01/05/25 17:03 129/79 01/05/25 17:00 98.3 85 19 95 98.3 01/05/25 12:55 Nasal Cannula 2.0 01/05/25 12:55 28 Physical Exam Awake alert oriented x3 HEENT: Normocephalic, no JVD Lungs: Bilateral good air entry CVS: S1, S2 regular rate rhythm Abdomen: Soft, bowel sounds present [employer] 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 Extremities: No edema Labs/Diagnostic Data Labs Test 01/05/25 11:00 01/05/25 10:30 01/05/25 06:52 01/04/25 20:51 Range/Units Urine Color Light-yellow Yellow Urine Clarity Clear Clear Urine pH 8.0 5.0-9.0 Urine Specific [place] 1.010 1.001-1.035 Urine Protein 2+ H Negative Urine Ketones Negative Negative Urine Blood Negative Negative /uL Urine Nitrite Negative Negative Urine Bilirubin Negative Negative Urine Urobilinogen Normal Negative mg/dL Urine Leukocyte Esterase 2+ Negative /uL Urine RBC 1 0 - 3 /hpf Urine Microscopic WBC 21 H 0-3 /HPF Urine Squamous Epithelial Cells Few <5 /hpf Urine Bacteria Few H None Seen /hpf Urine Glucose 1+ H Normal mg/dL Lactic Acid Level 1.6 0.4-2.0 mmol/L Urine Opiates Screen Neg NEGATIVE Urine Fentanyl Screen Neg NEGATIVE Urine Barbiturates Screen Neg NEGATIVE Urine Phencyclidine Screen Neg NEGATIVE Urine Amphetamines Screen Neg NEGATIVE Urine Benzodiazepines Screen Neg NEGATIVE Urine Cocaine Screen Neg NEGATIVE Urine Cannabinoids Screen Neg NEGATIVE Influenza Type A Antigen Negative Negative Influenza Type B Antigen Negative Negative SARS-CoV-2 Antigen (Rapid) Negative NEGATIVE White Blood Count 2.6 L 4.4-10.8 10^3/uL Red Blood Count 3.29 L 4.5-5.90 10^6/uL Hemoglobin 10.7 L 13.5-17.5 g/dL Hematocrit 32.3 #L 41.0-53.0 % Mean Corpuscular Volume 98.2 80.0-100.0 fL Mean Corpuscular Hemoglobin 32.6 H 28.0-32.0 pg Mean Corpuscular Hemoglobin Concent 33.2 32.0-36.0 g/dL Red Cell Distribution Width 15.2 H 11.8-14.3 % Platelet Count 203 140-450 10^3/uL Mean Platelet Volume 7.4 6.9-10.8 fL Neutrophils (%) (Auto) 37.0-80.0 % Lymphocytes (%) (Auto) 10.0-50.0 % Monocytes (%) (Auto) 0.0-12.0 % Basophils (%) (Auto) 0.0-2.0 % Neutrophils # (Auto) 1.6-8.6 10 ^3/uL Lymphocytes # (Auto) 0.4-5.4 10 ^3/uL Monocytes # (Auto) 0-1.3 10 ^3/uL Differential Total Cells Counted 100.0 100 Neutrophils % (Manual) 58 37.0-80.0 Band Neutrophils % (Manual) 0 Lymphocytes % (Manual) 28 10.0-50.0 Monocytes % (Manual) 11 0-12 Eosinophils % (Manual) 3 0-7 Basophils % (Manual) 0 0.0-2.0 Metamyelocytes % (manual) 0 Myelocytes % (Manual) 0 Promyelocytes % (Manual) 0 Blast Cells % (Manual) 0 Reactive Lymphocytes 0 Platelet Estimate Adequate Sodium Level 139 136-145 mmol/L Potassium Level 4.1 3.5-5.1 mmol/L Chloride Level 98 98-107 mmol/L Carbon Dioxide Level 30 20-31 mmol/L Anion Gap 11 5-15 Blood Urea Nitrogen 60 H 9-23 mg/dL Creatinine 10.40 *H 0.700-1.30 mg/dL Glomerular Filtration Rate Calc 5 >90 mL/min BUN/Creatinine Ratio 5.8 L 10.0-20.0 Serum Glucose 117 H 74-106 mg/dL Hemoglobin A1c 5.2 <5.7 % A1C Calcium Level 10.9 H 8.7-10.4 mg/dL Phosphorus Level 4.3 2.4-5.1 mg/dL Magnesium Level 2.8 H 1.6-2.6 mg/dL Total Bilirubin 0.2 0.2-1.0 mg/dL Aspartate Amino Transferase (AST) 18 13-40 U/L Alanine Aminotransferase (ALT) 11 7-40 U/L Alkaline Phosphatase 105 46-116 U/L Total Protein 6.4 5.7-8.2 g/dL Albumin 3.8 3.2-4.8 g/dL Vitamin B12 Level 461 211-911 pg/mL Vitamin D 25-Hydroxy 51.6 30.0-100 ng/mL Folic Acid 9.25 >5.38 ng/mL Thyroid Stimulating Hormone (TSH) 0.51 L 0.55-4.78 uIU/mL Parathyroid Hormone (Intact) 350.5 H 18.4-80.1 pg/mL Troponin I High Sensitivity 75 *H </=54 ng/L Test 01/04/25 17:06 01/04/25 16:11 Range/Units POC Glucose 107 H 70-106 mg/dl Microcytosis Macrocytosis Slight B-Type Natriuretic Peptide 2824.96 0-100 pg/mL Microbiology Date/Time Source Procedure Growth Status 01/05/25 06:00 Nose MRSA Screen - Final Complete Assessment End-stage kidney disease on hemodialysis Symptomatic bradycardia History of coronary artery disease status post CABG Status post AICD placement Essential hypertension Plan/Recommendation Patient was dialyzed today with ultrafiltration of 2 L. Cardiology recommendations appreciated. Patient is stable from renal standpoint for discharge. Plan discussed with: Patient SHAREE KHANNA MD Jan 05, 2025 18:52
[2025-01-05] MEDS: ATORVASTATIN 20 MG TAB PO SCH (21:53)
[2025-01-05] MEDS: CARVEDILOL 3.125 MG TAB PO SCH (21:53)
[2025-01-05] MEDS: HEPARIN SODIUM (PORCINE) 5000 UNITS/ML 1ML VIAL SC SCH (21:54)
[2025-01-05] MEDS: cefTRIAXone 1GM/50ML D5W 50 ML IV SCH (22:53)
[2025-01-05] MEDS ORDERED: AZITHROMYCIN 250 MG TAB PO SCH (23:00)
--- NOTE | 2025-01-05 23:12 | DVHINCON2 ---
Date Seen: Jan 05, 2025 Referring Physician MD Shadi Reason for Consultation AICD interrogation with symptomatic bradycardia, CHF History of Present Illness This is a 74-year-old male with a PMH of severe coronary artery disease status post triple-vessel CABG (01/2024) status post successful PTCA and stenting with shockwave lithotripsy of the LAD x 1 MENDEZ on 09/01/2024 (on ASA/Plavix), ischemic cardiomyopathy with EF 35-40%, sick sinus syndrome status post right-sided single-lead AICD (Biotronik, 11/04/2024), hypertension, dyslipidemia, COPD O2 de pendence, end-stage renal disease on hemodialysis T--Sat, type 2 diabetes mellitus, previous tobacco use, and benign prostatic hyperplasia who presented to the emergency room via EMS with a complaint of generalized weakness yesterday. Per patient, he had an uneventful morning until late in the morning when his Physical Therapist arrived as scheduled and took his vital signs findi ng a HR fluctuating in between 31-41 bpm which prompted to call 911. Per patient, he felt slight lightheadedness and generalized weakness. At time of assessment he denies any symptoms including dizziness, generalized weakness, SHARP, visual disturbances, SOB, chest pain, or palpitations. He was medicated with NS x250 mLs EN route to the hospital. Patient was admitted to the hospital. I am asked to consult on this patient. Past Medical History AICD interrogation with symptomatic bradycardia, CHF Past Surgical History PTCA and stenting with shockwave lithotripsy of the LAD x 1 MENDEZ, 09/01/2024 Triple-vessel CABG at [facility], 01/2024 Hemodialysis access TURP Family History: FH: cancer G8 MOTHER FH: heart disease G8 FATHER Allergies: Coded Allergies: NO KNOWN ALLERGIES (Unverified , 01/05/24) Home Meds Active Scripts Ipratropium [place] (Ipratropium [place]) 0.02 % Brittany, 0.5 % HHN QIDP for 30 Days, #90 ML 3 Refills Prov:CRAIG NAZARIO MD 12/17/24 Albuterol Sulfate (Albuterol Sulfate) 1.25 Mg/3 Ml Neb, 1.25 MG IN QIDP for 30 Days, #90 INH 2 Refills Prov:CRAIG NAZARIO MD 12/17/24 Reported Medications Magnesium Oxide (Magnesium Oxide) 400 Mg Tab, 1 TAB PO DAILY for 90 Days, #90 10/29/24 Meloxicam (Meloxicam) 15 Mg Tab, 1 TAB PO DAILY for 30 Days, #30 10/29/24 Sacubitril-Valsartan (Entresto 24-26 mg) 1 Tab Tab, 1 TAB PO BID for 30 Days, #60 10/29/24 Nitroglycerin (Nitrostat) 0.4 Mg Sub, 1 TAB PO UD for 33 Days, #100 10/29/24 Atorvastatin Calcium (ATORVASTATIN CALCIUM) 40 Mg Tab, 1 TAB PO DAILY for 90 Days, #90 10/29/24 Isosorbide Mononitrate (Isosorbide Mononitrate Er) 30 Mg Tab, 1 TAB PO DAILY for 90 Days, #90 10/29/24 Clopidogrel Bisulfate (CLOPIDOGREL) 75 Mg Tab, 1 TAB PO DAILY for 90 Days, #90 10/29/24 Ranolazine (Ranolazine ER) 500 Mg Tab, 1 TAB PO BID for 30 Days, #60 10/29/24 Furosemide (Furosemide) 40 Mg Tab, 1 TAB PO DAILY for 90 Days, #90 01/07/24 Ergocalciferol (Vitamin D) 50,000 Unit Cap, 1 CAP PO QWEEKLY 01/07/24 Omeprazole (Omeprazole Dr) 40 Mg Cap, 1 CAP PO DAILY for 90 Days, #90 01/07/24 Aspirin (Aspirin Low Dose) 81 Mg Chw, 1 TAB PO DAILY 01/07/24 Sevelamer Carbonate (Renvela) 800 Mg Tab, 2 TAB PO TID 01/07/24 Carvedilol (Carvedilol) 25 Mg Tab, 1 TAB PO BID for 90 Days, #180 01/07/24 Oxycodone HCl (Oxycodone Hydrochloride) 15 Mg Tab, 1 TAB PO QID for 30 Days, #120 01/07/24 Current Medications Current Medications Medications (Trade) Dose Ordered Sig/Edson Route PRN Reason Start Time Stop Time Status Last Admin Clopidogrel Bisulfate (Plavix) 75 mg DAILY PO 01/05/25 10:00 01/05/25 17:02 Furosemide (Lasix Tablet) 40 mg DAILY PO 01/05/25 10:00 01/05/25 09:31 DC Ranolazine (Ranexa ER) 500 mg BID PO 01/05/25 10:00 01/05/25 21:53 Sacubitril/ Valsartan (Entresto 24-26 Mg tab) 1 tab BID PO 01/05/25 10:00 01/05/25 21:52 Aspirin 81 mg DAILY PO 01/05/25 10:00 01/05/25 17:06 Atorvastatin Calcium (Lipitor) 40 mg HS PO 01/05/25 22:00 01/05/25 21:53 Isosorbide Mononitrate (Imdur Er Tablet) 30 mg DAILY PO 01/05/25 10:00 01/05/25 17:02 Sevelamer HCl (Renagel) 1,600 mg TIDWM PO 01/05/25 08:00 01/05/25 18:15 Ceftriaxone Sodium 50 ml @ 100 mls/hr Q24H IV 01/05/25 23:00 01/05/25 22:53 Azithromycin (Zithromax Tablet) 500 mg Q24H PO 01/05/25 23:00 01/05/25 08:31 DC Albuterol (Ventolin Medneb) 2.5 mg Q6HWA [facility] 01/05/25 06:00 01/05/25 18:47 Famotidine (Pepcid Tablet) 10 mg Q48H PO 01/05/25 10:00 01/05/25 17:07 Heparin Sodium (Porcine) 5,000 units Q12HR SC 01/05/25 10:00 Cancel Furosemide (Lasix Injection) 40 mg DAILY IV 01/05/25 10:00 01/05/25 17:03 Ipratropium [place] (Atrovent Medneb) 0.5 mg Q6HWA [facility] 01/05/25 12:00 01/05/25 18:47 Heparin Sodium (Porcine) 5,000 units Q12HR SC 01/05/25 22:00 01/05/25 21:54 Carvedilol (Coreg Tablet) 3.125 mg Q12HR PO 01/05/25 22:00 01/05/25 21:53 Review of Systems Constitutional: Generalized weakness Ears, Nose, & Throat: No symptom reported Eyes: No symptom reported Neurological: Lightheadedness Pulmonary/Respiratory: No symptom reported Cardiovascular: No symptom reported Gastrointestinal: No symptom reported Genitourinary: No symptom reported Musculoskeletal: No symptom reported Skin: No symptom reported Psychiatric: No symptom reported Endocrine: No symptom reported Hemotologic/Lymphatic: No symptom reported Vital Signs Vital Signs Date Time Temp Pulse Resp B/P (MAP) Pulse Ox O2 Delivery O2 Flow Rate FiO2 01/05/25 21:53 87 136/69 01/05/25 21:00 98.3 18 100 98.3 01/05/25 18:40 Nasal Cannula* 2 28 Physical Exam CARDIOVASCULAR GENERAL: Alert and oriented x 3. No acute distress. EYES: PERRL, EOMI. Anicteric. HENT: Moist mucous membranes. LUNGS: Clear to auscultation bilaterally. Regular rate and rhythm. ABDOMEN: Soft, non-tender and non-distended. EXTREMITIES: No edema. NEUROLOGIC: No focal neurological deficits. SKIN: Warm, dry. Labs/Diagnostic Data Labs Test 01/05/25 11:00 01/05/25 10:30 01/05/25 06:52 01/04/25 20:51 Range/Units Urine Color Light-yellow Yellow Urine Clarity Clear Clear Urine pH 8.0 5.0-9.0 Urine Specific [place] 1.010 1.001-1.035 Urine Protein 2+ H Negative Urine Ketones Negative Negative Urine Blood Negative Negative /uL Urine Nitrite Negative Negative Urine Bilirubin Negative Negative Urine Urobilinogen Normal Negative mg/dL Urine Leukocyte Esterase 2+ Negative /uL Urine RBC 1 0 - 3 /hpf Urine Microscopic WBC 21 H 0-3 /HPF Urine Squamous Epithelial Cells Few <5 /hpf Urine Bacteria Few H None Seen /hpf Urine Glucose 1+ H Normal mg/dL Lactic Acid Level 1.6 0.4-2.0 mmol/L Urine Opiates Screen Neg NEGATIVE Urine Fentanyl Screen Neg NEGATIVE Urine Barbiturates Screen Neg NEGATIVE Urine Phencyclidine Screen Neg NEGATIVE Urine Amphetamines Screen Neg NEGATIVE Urine Benzodiazepines Screen Neg NEGATIVE Urine Cocaine Screen Neg NEGATIVE Urine Cannabinoids Screen Neg NEGATIVE Influenza Type A Antigen Negative Negative Influenza Type B Antigen Negative Negative SARS-CoV-2 Antigen (Rapid) Negative NEGATIVE White Blood Count 2.6 L 4.4-10.8 10^3/uL Red Blood Count 3.29 L 4.5-5.90 10^6/uL Hemoglobin 10.7 L 13.5-17.5 g/dL Hematocrit 32.3 #L 41.0-53.0 % Mean Corpuscular Volume 98.2 80.0-100.0 fL Mean Corpuscular Hemoglobin 32.6 H 28.0-32.0 pg Mean Corpuscular Hemoglobin Concent 33.2 32.0-36.0 g/dL Red Cell Distribution Width 15.2 H 11.8-14.3 % Platelet Count 203 140-450 10^3/uL Mean Platelet Volume 7.4 6.9-10.8 fL Neutrophils (%) (Auto) 37.0-80.0 % Lymphocytes (%) (Auto) 10.0-50.0 % Monocytes (%) (Auto) 0.0-12.0 % Basophils (%) (Auto) 0.0-2.0 % Neutrophils # (Auto) 1.6-8.6 10 ^3/uL Lymphocytes # (Auto) 0.4-5.4 10 ^3/uL Monocytes # (Auto) 0-1.3 10 ^3/uL Differential Total Cells Counted 100.0 100 Neutrophils % (Manual) 58 37.0-80.0 Band Neutrophils % (Manual) 0 Lymphocytes % (Manual) 28 10.0-50.0 Monocytes % (Manual) 11 0-12 Eosinophils % (Manual) 3 0-7 Basophils % (Manual) 0 0.0-2.0 Metamyelocytes % (manual) 0 Myelocytes % (Manual) 0 Promyelocytes % (Manual) 0 Blast Cells % (Manual) 0 Reactive Lymphocytes 0 Platelet Estimate Adequate Sodium Level 139 136-145 mmol/L Potassium Level 4.1 3.5-5.1 mmol/L Chloride Level 98 98-107 mmol/L Carbon Dioxide Level 30 20-31 mmol/L Anion Gap 11 5-15 Blood Urea Nitrogen 60 H 9-23 mg/dL Creatinine 10.40 *H 0.700-1.30 mg/dL Glomerular Filtration Rate Calc 5 >90 mL/min BUN/Creatinine Ratio 5.8 L 10.0-20.0 Serum Glucose 117 H 74-106 mg/dL Hemoglobin A1c 5.2 <5.7 % A1C Calcium Level 10.9 H 8.7-10.4 mg/dL Phosphorus Level 4.3 2.4-5.1 mg/dL Magnesium Level 2.8 H 1.6-2.6 mg/dL Total Bilirubin 0.2 0.2-1.0 mg/dL Aspartate Amino Transferase (AST) 18 13-40 U/L Alanine Aminotransferase (ALT) 11 7-40 U/L Alkaline Phosphatase 105 46-116 U/L Total Protein 6.4 5.7-8.2 g/dL Albumin 3.8 3.2-4.8 g/dL Vitamin B12 Level 461 211-911 pg/mL Vitamin D 25-Hydroxy 51.6 30.0-100 ng/mL Folic Acid 9.25 >5.38 ng/mL Thyroid Stimulating Hormone (TSH) 0.51 L 0.55-4.78 uIU/mL Parathyroid Hormone (Intact) 350.5 H 18.4-80.1 pg/mL Troponin I High Sensitivity 75 *H </=54 ng/L Test 01/04/25 17:06 01/04/25 16:11 Range/Units POC Glucose 107 H 70-106 mg/dl Microcytosis Macrocytosis Slight B-Type Natriuretic Peptide 2824.96 0-100 pg/mL Microbiology Date/Time Source Procedure Growth Status 01/05/25 06:00 Nose MRSA Screen - Final Complete Assessment Chronic compensated HFrEF, NYHA class III. Severe coronary artery disease with triple-vessel CABG s/p PCI of the LAD x 1DES (on ASA and Plavix). Presence of single-lead right-sided AICD (Biotronik, 11/04/2024). End-stage renal disease on hemodialysis (//Sat). NSTEMI, likely type II secondary to above. Dyslipidemia. COPD with oxygen dependence. Type 2 diabetes mellitus. Anemia in chronic disease. History of tobacco use. Plan/Recommendation I agree with your ongoing assessment and care of plan. Patient has been seen by Joanna Jones NP on my behalf. We have discussed the plan with the patient. Transthoracic echocardiogram revealed EF 35-40% with global hypokinesis (10/30/24). Continue guideline directed medical therapy for CHF as renal function (BB and Entresto). Mineralcorticoid and SGLP2 inhibitor contraindicated given ESRD. 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 Doubt bradycardic events given pacemaker implantation with optimal lead placement on CXR and no evidence of lead fracture. The patient does present with multiple PVCs which could be the trigger of low HR reading at home. Interrogation completed revealing an optimal functioning AICD device with evidence on NSVT events and no bradyarrhythmias (see full report in chart). Continue dual-antiplatelet therapy and lipid-lowering agent. Nephrology recommendations for HD (//Sat). Follow-up with Dr. Cardona as scheduled on 02/11/2025 at 1130. Additional plan as per the hospital course. Plan discussed with: Patient NYHA Physical activity limitations: Class3(Marked) ordinary Date of Service: Jan 05, 2025 Billing Provider: MOE PISANO MD Cardiology Common Codes: 84005-EGTFHJP INP/OBS CARE (High) Cardiology Consultation Codes: 28729-[id number] CONSULT <45MIN MOE PISANO MD Jan 05, 2025 23:12
[2025-01-06] VITALS (13 sets, daily range): BP systolic 115–142; BP diastolic 52–66; PULSE 40–89; RESP 15–17; TEMP 36.4; O2SAT 97–100
[2025-01-06 06:45] LABS: Hematocrit 30.8 % (41.0-53.0); Hemoglobin 10.4 g/dL (13.5-17.5); Mean Corpuscular Hemoglobin 32.7 pg (28.0-32.0); Mean Corpuscular Volume 97.4 fL (80.0-100.0)
[2025-01-06 06:49] LABS: Alanine Aminotransferase 14 U/L (7-40); Albumin 3.7 g/dL (3.2-4.8); Alkaline Phosphatase 95 U/L (46-116)
[2025-01-06 06:50] LABS: Anion Gap 9 (5-15); BUN/Creatinine Ratio 5.0 (10.0-20.0); Calcium 9.9 mg/dL (8.7-10.4); Carbon Dioxide 31 mmol/L (20-31); Glucose 93 mg/dL (74-106); Magnesium 2.3 mg/dL (1.6-2.6); Potassium 4.0 mmol/L (3.5-5.1); Sodium 138 mmol/L (136-145); Total Protein 6.3 g/dL (5.7-8.2)
[2025-01-06 06:55] LABS: Bilirubin, Total 0.2 mg/dL (0.2-1.0); Blood Urea Nitrogen 39 mg/dL (9-23); Chloride 98 mmol/L (98-107)
[2025-01-06 08:18] LABS: Total Cells Counted 100.0 (100)
[2025-01-06] MEDS ORDERED: MAGN400T40 PO (10:48)
[2025-01-06] MEDS ORDERED: CARV-214 PO (10:48)
[2025-01-06] MEDS ORDERED: CEFP200T15 PO (13:35)
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
--- NOTE | 2025-01-06 22:14 | DVHPN2 ---
Progress Note - Dictate Date Seen: Jan 06, 2025 Medical Necessity Reason Pt with a Central, PICC or Fol: No Subjective Patient was seen and evaluated in follow up. No overnight events. Patient is on 2 LPM NC.BUN 39, VELVET STEAMER 7.73. Cartoid Duplex shows no hemodynamically significant stenosis noted in the right or left carotid system. vital signs Vital Sign Date Time Temp Pulse Resp B/P (MAP) Pulse Ox O2 Delivery O2 Flow Rate FiO2 01/06/25 16:49 97.9 40 16 121/65 (83) 100 97.9 01/06/25 08:10 Nasal Cannula* 2 28 Total Intake and Output 01/05/25 01/05/25 01/06/25 15:00 23:00 07:00 Intake Total 602 ml 650 ml Balance 602 ml 650 ml medications Current Medications Medications Dose Ordered Sig/Edson Route Start Time Stop Time Status Last Admin Dose Admin Morphine Sulfate 2 mg Q30M PRN IV 01/04/25 22:00 Nitroglycerin 0.4 mg Q5MINP PRN SL 01/04/25 22:00 Clopidogrel Bisulfate 75 mg DAILY PO 01/05/25 10:00 01/06/25 08:59 75 MG Ranolazine 500 mg BID PO 01/05/25 10:00 01/06/25 08:59 500 MG Sacubitril/ Valsartan 1 tab BID PO 01/05/25 10:00 01/06/25 09:00 1 TAB Aspirin 81 mg DAILY PO 01/05/25 10:00 01/06/25 09:00 81 MG Atorvastatin Calcium 40 mg HS PO 01/05/25 22:00 01/05/25 21:53 40 MG Isosorbide Mononitrate 30 mg DAILY PO 01/05/25 10:00 01/06/25 09:01 30 MG Sevelamer HCl 1,600 mg TIDWM PO 01/05/25 08:00 01/06/25 18:18 1,600 MG Ceftriaxone Sodium 50 ml @ 100 mls/hr Q24H IV 01/05/25 23:00 01/05/25 22:53 100 MLS/HR Albuterol 2.5 mg Q6HWA NEB 01/05/25 06:00 01/06/25 12:11 2.5 MG Famotidine 10 mg Q48H PO 01/05/25 10:00 01/05/25 17:07 10 MG Heparin Sodium (Porcine) 5,000 units Q12HR SC 01/05/25 10:00 Cancel Furosemide 40 mg DAILY IV 01/05/25 10:00 01/06/25 09:02 40 MG Ipratropium Frakes 0.5 mg Q6HWA NEB 01/05/25 12:00 01/06/25 12:11 0.5 MG Heparin Sodium (Porcine) 5,000 units Q12HR SC 01/05/25 22:00 01/06/25 09:09 5,000 UNITS Carvedilol 3.125 mg Q12HR PO 01/05/25 22:00 01/05/25 21:53 3.125 MG objective CARDIOVASCULAR GENERAL: Alert and oriented x 3. No acute distress. EYES: PERRL, EOMI. Anicteric. HENT: Moist mucous membranes. LUNGS: Clear to auscultation bilaterally. Regular rate and rhythm. ABDOMEN: Soft, non-tender and non-distended. EXTREMITIES: No edema. NEUROLOGIC: No focal neurological deficits. SKIN: Warm, dry. laboratory and microbiology Laboratory Tests 01/06/25 06:01 Test 01/06/25 06:01 Range/Units Serum Glucose 93 74-106 mg/dL Problem List Chronic compensated HFrEF, NYHA class III. Severe coronary artery disease with triple-vessel CABG s/p PCI of the LAD x 1DES (on ASA and Plavix). Presence of single-lead right-sided AICD (Biotronik, 11/04/2024). End-stage renal disease on hemodialysis (//Sat). NSTEMI, likely type II secondary to above. Dyslipidemia. COPD with oxygen dependence. Type 2 diabetes mellitus. Anemia in chronic disease. History of tobacco use. Assessment/Plan Continued all current supportive medical care. Nitro SL. Coreg. Entresto. Diuretics with Lasix. Aspirin, Lipitor, Plavix. IV antibiotics as ordered. Morphine for pain management. Additional plan as per the hospital course. Plan discussed with: Patient MOE PISANO MD Jan 06, 2025 18:55
== END 2025-01-06 19:35 | disposition home or self-care (01) | DRG 280 ==
LOC: EDUNIT# 15:34 → EDBD 15:34 → ER 15:36 → OVERFLOW 21:53 → TELE-EAST 21:58 → EAST 01-05 18:37
PROVIDERS: ADMIT Internal Medicine; ATTEND Internal Medicine
PROC: 5A1D70Z Performance of Urinary Filtration, Intermittent, Less than 6 Hours Per Day (ICD-10-PCS; principal; 2025-01-05)
DX: R00.1 Bradycardia, unspecified (principal); J15.69 Pneumonia due to other Gram-negative bacteria; I21.A1 Myocardial infarction type 2; N18.6 End stage renal disease; J15.9 Unspecified bacterial pneumonia; I13.2 Hypertensive heart and chronic kidney disease with heart failure and with stage 5 chronic kidney disease, or end stage renal disease; J44.0 Chronic obstructive pulmonary disease with (acute) lower respiratory infection; I50.22 Chronic systolic (congestive) heart failure; J96.11 Chronic respiratory failure with hypoxia; Z20.822 Contact with and (suspected) exposure to COVID-19; D63.1 Anemia in chronic kidney disease; Z99.2 Dependence on renal dialysis; E11.22 Type 2 diabetes mellitus with diabetic chronic kidney disease; B19.20 Unspecified viral hepatitis C without hepatic coma; E11.51 Type 2 diabetes mellitus with diabetic peripheral angiopathy without gangrene; Z95.1 Presence of aortocoronary bypass graft; Z99.81 Dependence on supplemental oxygen; I49.3 Ventricular premature depolarization; E78.5 Hyperlipidemia, unspecified; I25.10 Atherosclerotic heart disease of native coronary artery without angina pectoris; N40.0 Benign prostatic hyperplasia without lower urinary tract symptoms; D72.819 Decreased white blood cell count, unspecified; G47.30 Sleep apnea, unspecified; I95.9 Hypotension, unspecified; I25.2 Old myocardial infarction; Z87.891 Personal history of nicotine dependence; Z95.810 Presence of automatic (implantable) cardiac defibrillator; Z95.5 Presence of coronary angioplasty implant and graft
CPT/HCPCS: 36415; 71045; 76604; 80048; 80053; 80307; 81001; 82306; 82607; 82746; 82962; 83036; 83605; 83735; 83880; 83970; 84100; 84443; 84484; 85007; 85027; 87081; 87086; 87088; 87186; 87205; 87426; 87804; 90935; 93005; 93886; 94640; 96365; 96375; 99291; G0378

== ENCOUNTER 2025-02-10 12:38 | Outpatient (CLI) | payer MEDICARE, MEDICAID ==
[~2025-02-10 12:38] MED LIST changes: -CARV25TA55 PO; +CEFP200T15 PO; +MAGN400T40 PO
[2025-02-10 13:18] LABS: Hematocrit 35.4 % (41.0-53.0); Hemoglobin 11.7 g/dL (13.5-17.5); Mean Corpuscular Hemoglobin 32.3 pg (28.0-32.0); Mean Corpuscular Volume 98.0 fL (80.0-100.0)
[2025-02-10 13:36] LABS: Albumin 4.1 g/dL (3.2-4.8); Anion Gap 13 (5-15); BUN/Creatinine Ratio 7.9 (10.0-20.0); Calcium 9.2 mg/dL (8.7-10.4); Carbon Dioxide 29 mmol/L (20-31); Sodium 137 mmol/L (136-145); Total Protein 6.7 g/dL (5.7-8.2); Triglycerides 57 mg/dL (< 150)
[2025-02-10 13:37] LABS: Alanine Aminotransferase 57 U/L (7-40); Alkaline Phosphatase 136 U/L (46-116); Bilirubin, Direct 0.1 mg/dL (<0.3); Blood Urea Nitrogen 73 mg/dL (9-23); Chloride 95 mmol/L (98-107); Cholesterol 92 mg/dL (< 200); Glucose 112 mg/dL (74-106); HDL Cholesterol 42 mg/dL (40-59); Potassium 5.2 mmol/L (3.5-5.1)
[2025-02-10 13:40] LABS: Bilirubin, Total 0.2 mg/dL (0.2-1.0)
[2025-02-10 14:38] LABS: Total Cells Counted 100.0 (100)
== END 2025-02-10 17:00 | disposition home or self-care (01) ==
LOC: LAB 12:38
PROVIDERS: ATTEND Specialist
DX: I11.0 Hypertensive heart disease with heart failure (principal); I50.9 Heart failure, unspecified; E78.5 Hyperlipidemia, unspecified; R73.09 Other abnormal glucose; R68.89 Other general symptoms and signs; E03.9 Hypothyroidism, unspecified; D64.9 Anemia, unspecified
CPT/HCPCS: 36415; 80053; 80061; 80076; 83036; 85007; 85027

== ENCOUNTER 2025-02-20 08:17 | Inpatient (IN) | payer MEDICARE, MEDICAID ==
[~2025-02-20] VITALS: Ht 175.3 cm; Wt 73.9 kg
[2025-02-20 09:08] VITALS: PULSE 69; RESP 19; O2SAT 100
--- NOTE | 2025-02-20 10:05 | ED.PDOC ---
HPI Comments This is a 74 year old male presenting to the ED with chief complaint of dizziness/abdominal pain/hypotension. Patient reports that he has been hypotensive for the past week with a lower BP than usual, today reading 94/89. Patient relays that he has been experiencing weakness with associated dizziness, left sided abdominal pain, SOB, and sweats. Patient denies any chest pain, nausea, vomiting, or headache. Chief Complaint: Low Blood Pressure Time Seen by MD: 10:02 Primary Care Provider: UNKNOWN Reviewed Notes: Nurses Notes, Medications, Allergies Allergies: Coded Allergies: NO KNOWN ALLERGIES (Unverified , 01/05/24) Home Meds Active Scripts Cefpodoxime Proxetil (Cefpodoxime Proxetil) 200 Mg Tab, 1 TAB PO BID for 5 Days, #10 TAB Prov:MAYNOR WEBB 01/06/25 Magnesium Oxide (MAGNESIUM OXIDE) 400 Mg Tab, 1 TAB PO BID, #60 TAB 1 Refill Prov:MAYNOR WEBB 01/06/25 Ipratropium [place] (Ipratropium [place]) 0.02 % Brittany, 0.5 % HHN QIDP for 30 Days, #90 ML 3 Refills Prov:CRAIG NAZARIO MD 12/17/24 Albuterol Sulfate (Albuterol Sulfate) 1.25 Mg/3 Ml Neb, 1.25 MG IN QIDP for 30 Days, #90 INH 2 Refills Prov:CRAIG NAZARIO MD 12/17/24 Reported Medications Magnesium Oxide (Magnesium Oxide) 400 Mg Tab, 1 TAB PO DAILY for 90 Days, #90 10/29/24 Meloxicam (Meloxicam) 15 Mg Tab, 1 TAB PO DAILY for 30 Days, #30 10/29/24 Sacubitril-Valsartan (Entresto 24-26 mg) 1 Tab Tab, 1 TAB PO BID for 30 Days, #60 10/29/24 Nitroglycerin (Nitrostat) 0.4 Mg Sub, 1 TAB PO UD for 33 Days, #100 10/29/24 Atorvastatin Calcium (ATORVASTATIN CALCIUM) 40 Mg Tab, 1 TAB PO DAILY for 90 Days, #90 10/29/24 Isosorbide Mononitrate (Isosorbide Mononitrate Er) 30 Mg Tab, 1 TAB PO DAILY for 90 Days, #90 10/29/24 Clopidogrel Bisulfate (CLOPIDOGREL) 75 Mg Tab, 1 TAB PO DAILY for 90 Days, #90 10/29/24 Ranolazine (Ranolazine ER) 500 Mg Tab, 1 TAB PO BID for 30 Days, #60 10/29/24 Furosemide (Furosemide) 40 Mg Tab, 1 TAB PO DAILY for 90 Days, #90 01/07/24 Ergocalciferol (Vitamin D) 50,000 Unit Cap, 1 CAP PO QWEEKLY 01/07/24 Omeprazole (Omeprazole Dr) 40 Mg Cap, 1 CAP PO DAILY for 90 Days, #90 01/07/24 Aspirin (Aspirin Low Dose) 81 Mg Chw, 1 TAB PO DAILY 01/07/24 Sevelamer Carbonate (Renvela) 800 Mg Tab, 2 TAB PO TID 01/07/24 Oxycodone HCl (Oxycodone Hydrochloride) 15 Mg Tab, 1 TAB PO QID for 30 Days, #120 01/07/24 Information Source: Patient, Spouse Mode of Arrival: Wheelchair Severity: Moderate Timing: Days Duration: Since onset Prehospital treatment: None Onset: At Rest Cardiac Risk Factors: None PE Risk Factors: None Past Medical History PAST MEDICAL HISTORY: CAD, CHF, COPD, DM, ESRD, HTN, MO Surgical History: CABG, PTCA Family History Family History: Reviewed,noncontributory to illness, No family hx of HTN, Unknown Social History Smoker: Non-Smoker Alcohol: Denies ETOH Use Drugs: Denies Drug Use Lives In: Home Constitutional: reports: sweats, weakness; denies: chills, diaphoresis, fatigue, fever, malaise, others EENTM: denies: blurred vision, double vision, ear bleeding, ear discharge, ear drainage, ear pain, ear ringing, eye pain, eye redness, hearing loss, mouth pain, mouth swelling, nasal discharge, nose bleeding, nose congestion, nose pain, photophobia, tearing, throat pain, throat swelling, voice changes, others Respiratory: reports: shortness of breath; denies: cough, hemoptysis, orthopnea, SOB at rest, SOB with excertion, stridor, wheezing, others Cardiovascular: denies: chest pain, dizzy spells, diaphoresis, Dyspnea on exertion, edema, irregular heart beat, left arm pain, lightheadedness, palpitations, PND, syncope, others Gastrointestinal: reports: abdominal pain; denies: abdomen distended, blood streaked bowels, constipated, diarrhea, dysphagia, difficulty swallowing, hematemesis, melena, nausea, poor appetite, poor fluid intake, rectal bleeding, rectal pain, vomiting, others Genitourinary: denies: burning, dysuria, flank pain, frequency, hematuria, incontinence, penile discharge, penile sore, pain, testicle pain, testicle sw elling, urgency, others Neurological: reports: dizziness; denies: fainting, headache, left sided numbness, left sided weakness, numbness, paresthesia, pre-existing deficit, right sided numbness, right sided weakness, seizure, speech problems, tingling, tremors, weakness, others Musculoskeletal: denies: back pain, gout, joint pain, joint swelling, muscle pain, muscle stiffness, neck pain, others Integumetry: denies: bruises, change in color, change in hair/nails, dryness, laceration, lesions, lumps, rash, wounds, others Allergic/Immunocompromised: denies: Difficulty Healing, Frequent Infections, Hives, Itching, others Hematologic/Lymphatic: denies: anemia, blood clots, easy bleeding, easy bruising, swollen glands, others Endocrine: denies: excessive hunger, excessive sweating, excessive thirst, excessive urination, flushing, intolerance to cold, intolerance to heat, unexplained weight gain, unexplained weight loss, others Psychiatric: denies: anxiety, bipolar disorder, depression, hopeless, panic disorder, schizophrenia, sleepless, suicidal, others All Other Systems: Reviewed and Negative Physical Exam General Appearance: No Apparent Distress, Normal HEENT: Normal ENT Inspection, Pharynx Normal, TMs Normal Neck: Full Range of Motion, Non-Tender, Normal, Normal Inspection Respiratory: Chest Non-Tender, Lungs Clear, No Accessory Muscle Use, No Resp iratory Distress, Normal Breath Sounds Cardiovascular: No Edema, No JVD, No Murmur, No Gallop, Normal Peripheral Pulses, Regular Rate/Rhythm Breast Exam: Deferred Gastrointestinal: No Organomegaly, No Pulsatile Mass, Normal Bowel Sounds, Soft, Other (Mild left abdominal tenderness) Genitalia: Deferred Pelvic: Deferred Rectal: Deferred Extremities: No calf tenderness, Normal capillary refill, Normal inspection, Normal range of motion, Non-tender, No pedal edema Musculoskeletal : Apperance: Normal 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 Was a procedure done?: No CP Differential Dx Differential Diagnosis: A-Flutter, Anxiety / Panic Attack, AV Block 1st Degree, AV Block 3rd Degree, Electrolyte Disorder, Heart Failure, Hypoxia, MAT, MO, Pacemaker Malfunction, Pulmonary Embolus, PVC's, Renal Failure, Sinus Tachycardia, Torsades De Pointes, V-Fib, V-Tach, WPW X-Ray, Labs, Meds, VS Vital Signs Date Time Temp Pulse Resp B/P (MAP) Pulse Ox O2 Delivery O2 Flow Rate FiO2 02/20/25 12:45 73 20 148/76 (100) 100 02/20/25 12:11 78 02/20/25 10:00 65 20 125/60 (81) 100 02/20/25 09:08 69 19 100 Nasal Cannula* 2 28 02/20/25 08:45 69 02/20/25 08:44 97.8 65 16 102/52 (69) 100 97.8 02/20/25 08:21 97.8 64 18 98/43 100 97.8 Lab Test 02/20/25 13:07 02/20/25 11:05 Range/Units Troponin I High Sensitivity Pending 225 *H </=54 ng/L White Blood Count 6.3 4.4-10.8 10^3/uL Red Blood Count 3.99 L 4.5-5.90 10^6/uL Hemoglobin 13.1 L 13.5-17.5 g/dL Hematocrit 38.5 L 41.0-53.0 % Mean Corpuscular Volume 96.4 80.0-100.0 fL Mean Corpuscular Hemoglobin 32.8 H 28.0-32.0 pg Mean Corpuscular Hemoglobin Concent 34.0 32.0-36.0 g/dL Red Cell Distribution Width 16.2 H 11.8-14.3 % Platelet Count 180 140-450 10^3/uL Mean Platelet Volume 7.5 6.9-10.8 fL Neutrophils (%) (Auto) 66.7 37.0-80.0 % Lymphocytes (%) (Auto) 14.6 10.0-50.0 % Monocytes (%) (Auto) 16.2 H 0.0-12.0 % Eosinophils (%) (Auto) 1.9 0.0-7.0 % Basophils (%) (Auto) 0.6 0.0-2.0 % Neutrophils # (Auto) 4.2 1.6-8.6 10 ^3/uL Lymphocytes # (Auto) 0.9 0.4-5.4 10 ^3/uL Monocytes # (Auto) 1.0 0-1.3 10 ^3/uL Eosinophils # (Auto) 0.1 0-0.8 10 ^3/uL Basophils # (Auto) 0 0-0.2 10 ^3/uL Nucleated Red Blood Cells 0.0 % Prothrombin Time 11.9 H 9.3-11.8 sec Prothrombin Time INR 1.14 0.9-1.15 Activated Partial Thromboplast Time 28.0 24.5-34.5 SEC D-Dimer, Quantitative 1.40 H 0.0-0.49 mg/L FEU Sodium Level 134 L 136-145 mmol/L Potassium Level 5.1 3.5-5.1 mmol/L Chloride Level 92 L 98-107 mmol/L Carbon Dioxide Level 28 20-31 mmol/L Anion Gap 14 5-15 Blood Urea Nitrogen 80 *H 9-23 mg/dL Creatinine 9.81 H 0.700-1.30 mg/dL Glomerular Filtration Rate Calc 5 >90 mL/min BUN/Creatinine Ratio 8.2 L 10.0-20.0 Serum Glucose 59 L 74-106 mg/dL Lactic Acid Level 1.2 0.4-2.0 mmol/L Calcium Level 9.5 8.7-10.4 mg/dL Magnesium Level 3.0 H 1.6-2.6 mg/dL Total Bilirubin 0.3 0.2-1.0 mg/dL Aspartate Amino Transferase (AST) 43 H 13-40 U/L Alanine Aminotransferase (ALT) 52 H 7-40 U/L Alkaline Phosphatase 107 46-116 U/L B-Type Natriuretic Peptide 1178.26 0-100 pg/mL Total Protein 6.8 5.7-8.2 g/dL Albumin 4.2 3.2-4.8 g/dL Current Medications Medications (Trade) Dose Ordered Sig/Edson Route Start Time Stop Time Status Last Admin Sodium Chloride 1,000 ml @ 1,000 mls/hr Q1H ONCE IV 02/20/25 10:45 02/20/25 11:44 DC 02/20/25 11:49 [facility] [id number] [place] [id number] Ph: [phone] DIAGNOSTIC IMAGING Diagnostic Imaging Report : [id number] Signed PATIENT: MAXIMUS MAR JR ACCT: [id number] UNIT: [id number] : 1950 LOC: ER ROOM / BED: / AGE / SEX: 74 / M ADM STATUS: REG ER SERVICE 1031 ORDERING PHYSICIAN: EDA HAGEN MD PROCEDURE(s): CXRP - CHEST PORTABLE REASON: SOB ORDER NUMBER(s): [id number], ACCESSION NUMBER(s): [id number] XY CHEST PORTABLE, HISTORY: SOB COMPARISON: US CHEST ULTRASOUND on DOS: 01/04/25, XY CHEST PORTABLE on DOS: 01/04, XY CHEST PORTABLE on DOS: 12/15/24 US CHEST ULTRASOUND on DOS: 01/04/25, XY CHEST PORTABLE on DOS: 01/04/25, XY CHEST PORTABLE on DOS: 12/15/24 TECHNICAL DATA: 1 view of the chest was obtained. FINDINGS: Lines and tubes: Right chest wall pacer is noted Cardiomediastinal silhouette: prominent Pulmonary vasculature: prominent Lung expansion: normal Lung airspace: normal Lung interstitium: Prominent. Pleura: Trace left effusion. Pneumothorax: no Bones: Unremarkable Other: no IMPRESSION: Interstitial pulmonary edema. ATED BY: KISHAN SALINAS MD DICTATED DATE/TIME: 02/20/251114 SIGNED BY: KISHAN SALINAS MD SIGNED DATE/TIME: 02/20/251114 CC: X-Ray, Labs, Meds, VS Comment This diaphoretic and well-appearing 74-year-old male presents secondary to general malaise. He has also supports being dyspneic. He was workup was significant multiple fine including substantially elevated troponin, in pulmona ry edema. Based on these findings, I will admit the patient for further workup and management. Time of 1ST Reevaluation: 11:00 Reevaluation 1ST: Unchanged Patient Education/Counseling: Diagnosis, Treatment Family Education/Counseling: Diagnosis, Treatment SEPSIS Sepsis Screen Date sepsis recognized/suspect: Feb 20, 2025 Time Sepsis recognized/suspect: 823 Recent Procedure: No On Antibiotic Therapy: No Respiratory Rate >20: No Heart Rate >90: No Temp<36 C (96.8 F) or >38.3 C: No SBP <90 or MAP <65 mmHG: No New Acute Mental Status Change: No Is the patient on CPAP, BIPAP,: No Physician Orders Chest Portable (02/20/25 10:31) Urinalysis (02/20/25 10:31) Troponin-I Hs (02/20/25 11:31) Troponin-I Hs (02/20/25 13:31) Ct Ab Pel Wo Con-No Oral Or Iv (02/20/25 11:42) Head Without Contrast (02/20/25 11:42) Vital Signs Date Time Temp Pulse Resp B/P (MAP) Pulse Ox O2 Delivery O2 Flow Rate FiO2 02/20/25 12:45 73 20 148/76 (100) 100 02/20/25 12:11 78 02/20/25 10:00 65 20 125/60 (81) 100 02/20/25 09:08 69 19 100 Nasal Cannula* 2 28 02/20/25 08:45 69 02/20/25 08:44 97.8 65 16 102/52 (69) 100 97.8 02/20/25 08:21 97.8 64 18 98/43 100 97.8 Laboratory Tests Test 02/20/25 11:05 Lactic Acid Level 1.2 mmol/L (0.4-2.0) White Blood Count 6.3 10^3/uL (4.4-10.8) Medications Medications Dose Ordered Sig/Edson Route Start Time Stop Time Status Last Admin Dose Admin Sodium Chloride 1,000 ml @ 1,000 mls/hr Q1H ONCE IV 02/20/25 10:45 02/20/25 11:44 DC 02/20/25 11:49 Departure 1 Departure Time of Disposition: 13:44 Impression: Primary Impression: Acute chest pain Additional Impressions: Acute exacerbation of congestive heart failure Acute respiratory distress Non-STEMI (non-ST elevated myocardial infarction) Disposition: ADMITTED INPATIENT Admit to: Tele Condition: Serious Critical Care Note Critical Care Time?: Yes (35 min-critical care time only) Critical care comment: Total critical care time: Approximately 36 minutes Due to a high probability of clinically significant, life threatening deterioration, the patient required my highest level of preparedness to intervene emergently and I personally spent this critical care time directly and personally managing the patient. This critical care time included obtaining a history; examining the patient; pulse oximetry; ordering and review of studies; arranging urgent treatment with development of a management plan; evaluation of patient's response to treatment; frequent reassessment; and, discussions with other providers. This critical care time was performed to assess and manage the high probability of imminent, life-threatening deterioration that could result in multi-organ failure. It was exclusive of separately billable procedures and treating other patients and teaching time. Please see MDM section and the rest of the note for further information on patient assessment and treatment. Stability Stability form required: No Heart Score Heart Score: Heart Score Response (Comments) Value History Moderate Suspicious 1 EKG Normal 0 Age >65 2 Risk Factors >3 or Hx ASHD 2 Troponin >3 x's Normal limit 2 Total 7 I personally scribed for EDA HAGEN MD ([email or web address]) on 02/20/25 at 10:05. Electronically submitted by Eber Price ([email or web address]). I personally scribed for EDA HAGEN MD ([email or web address]) on 02/20/25 at 11:39. Electronically submitted by Eber Price ([email or web address]). EDA HAGEN MD Feb 20, 2025 10:05
--- NOTE | 2025-02-20 11:17 | DVH ---
XY CHEST PORTABLE, HISTORY: SOB COMPARISON: US CHEST ULTRASOUND on DOS: 01/04/25, XY CHEST PORTABLE on DOS: 01/04/25, XY CHEST PORTABLE on DOS: 12/15/24 US CHEST ULTRASOUND on DOS: 01/04/25, XY CHEST PORTABLE on DOS: 01/04/25, XY CHEST PORTABLE on DOS: 12/06 TECHNICAL DATA: 1 view of the chest was obtained. FINDINGS: Lines and tubes: Right chest wall pacer is noted Cardiomediastinal silhouette: prominent Pulmonary vasculature: prominent Lung expansion: normal Lung airspace: normal Lung interstitium: Prominent. Pleura: Trace left effusion. Pneumothorax: no Bones: Unremarkable Other: no IMPRESSION: Interstitial pulmonary edema.
[2025-02-20 11:27] LABS: Hematocrit 38.5 % (41.0-53.0); Hemoglobin 13.1 g/dL (13.5-17.5); Mean Corpuscular Hemoglobin 32.8 pg (28.0-32.0); Mean Corpuscular Volume 96.4 fL (80.0-100.0); Nucleated Red Blood Cells % 0.0 %
[2025-02-20 11:40] LABS: INR 1.14 (0.9-1.15); Partial Thromboplastin Time 28.0 SEC (24.5-34.5); Prothrombin Time 11.9 sec (9.3-11.8)
[2025-02-20 11:49] LABS: Albumin 4.2 g/dL (3.2-4.8); Alkaline Phosphatase 107 U/L (46-116); Anion Gap 14 (5-15); BUN/Creatinine Ratio 8.2 (10.0-20.0); Calcium 9.5 mg/dL (8.7-10.4); Carbon Dioxide 28 mmol/L (20-31); Total Protein 6.8 g/dL (5.7-8.2)
[2025-02-20] MEDS: SODIUM CHLORIDE 0.9% 1,000 ML IV ONE (11:49)
[2025-02-20 11:50] LABS: Alanine Aminotransferase 52 U/L (7-40); Bilirubin, Total 0.3 mg/dL (0.2-1.0); Chloride 92 mmol/L (98-107); Glucose 59 mg/dL (74-106); Magnesium 3.0 mg/dL (1.6-2.6); Potassium 5.1 mmol/L (3.5-5.1); Sodium 134 mmol/L (136-145)
[2025-02-20 11:53] LABS: Blood Urea Nitrogen 80 mg/dL (9-23)
--- NOTE | 2025-02-20 12:28 | DVH ---
EXAM: CT HEAD WITHOUT CONTRAST INDICATION: headache TECHNIQUE: CT of the head without intravenous contrast. Radiation Dose : 1. Head: CT Dose: CTDI volume is 60 mGy. Dose-length product is 1216 mGy*cm The dose indicators for CT are the volume Computed Tomography (CT) Dose Index (CTDIvol) and the Dose Length Product (DLP), and are measured in units of mGy and mGy-cm, respectively. These indicators are not patient dose, but values generated from the CT scanner acquisition factors. The report includes radiation exposure data for exposures received during this examination. COMPARISON: CT HEAD WITHOUT CONTRAST on DOS: 10/27/24 FINDINGS: There is no evidence of acute intracranial hemorrhage, extra-axial collection, mass effect, midline s hift, herniation or hydrocephalus. The ventricles, sulci and cisterns are age appropriate. The vasquez-white differentiation is intact. Patchy periventricular and subcortical white matter hypoattenuation is nonspecific but may be related to small vessel ischemic disease. The visualized paranasal sinuses and mastoid air cells are clear. The surrounding soft tissues and osseous structures are unremarkable. IMPRESSION: 1. No acute intracranial abnormality. Radiation optimization: All CT scans at this facility use at least one of these dose optimization jeff hniques: automated exposure control mA and/or kV adjustment per patient size (includes targeted exam s where dose is matched to clinical indication) or iterative reconstruction.
--- NOTE | 2025-02-20 13:10 | DVH ---
CLINICAL HISTORY: abd pain TECHNIQUE: CT of the abdomen and pelvis was performed without IV contrast. This exam was performed ac cording to our departmental dose optimization program. Up-to-date CT equipment and radiation dose red uction techniques are utilized as appropriate. CTDI 9.9 DLP 525.2 COMPARISON: None FINDINGS: Abdomen/Pelvis: The pancreas, adrenal glands, and liver are grossly unremarkable. The prostate gland is moderately large, measuring 6.0 cm diameter. The bladder is not well distended and therefore not well evaluated. There are gallstones. The right kidney is surgically absent. Hypodense left renal lesion is incomplet jessica characterized due to lack of IV contrast. Punctate splenic calcifications are most compatible sirena or granulomatous disease. The abdominal aorta is normal in course and caliber. There are moderate atherosclerotic calcification s. There is no free intraperitoneal air or fluid. There is no enlarged abdominal pelvic lymph node. There is diffuse gastric fold thickening. There is no small or large bowel wall thickening or dilatat ion. The appendix is normal. Other: The imaged lower thorax demonstrates [place] coronary artery and aortic valvular calcifications. There is a small left pleural effusion with atelectasis. There is a small fat containing left inguinal her анна.. No acute osseous abnormality is evident. Impression: Diffuse gastric fold thickening, which may represent gastritis or underdistention. Other possibilitie s are not excluded. Right nephrectomy. Cholelithiasis. Moderate prostatomegaly.
--- NOTE | 2025-02-20 14:17 | DVHHP2 ---
Admitting Diagnosis: Dizziness History of Present Illness This is a 74 year old male presenting to the ED with chief complaint of dizziness/abdominal pain/hypotension. Patient reports that he has been hypotensive for the past week with a lower BP than usual, today reading 94/89. Patient relays that he has been experiencing weakness with associated dizziness, left sided abdominal pain, SOB, and sweats. Patient denies any chest pain, nausea, vomiting, or headache. Chief Complaint: Low Blood Pressure Time Seen by MD: 10:02 Primary Care Provider: UNKNOWN Reviewed Notes: Nurses Notes, Medications, Allergies Allergies: Coded Allergies: NO KNOWN ALLERGIES (Unverified , 01/05/24) Home Meds Active Scripts Cefpodoxime Proxetil (Cefpodoxime Proxetil) 200 Mg Tab, 1 TAB PO BID for 5 Days, #10 TAB Prov:MAYNOR WEBB RESIDENT 01/06/25 Magnesium Oxide (MAGNESIUM OXIDE) 400 Mg Tab, 1 TAB PO BID, #60 TAB 1 Refill Prov:MAYNOR WEBB RESIDENT 01/06/25 Ipratropium Terrell (Ipratropium Terrell) 0.02 % Brittany, 0.5 % HHN QIDP for 30 Days, #90 ML 3 Refills Prov:CRAIG NAZARIO MD 12/17/24 Albuterol Sulfate (Albuterol Sulfate) 1.25 Mg/3 Ml Neb, 1.25 MG IN QIDP for 30 Days, #90 INH 2 Refills Prov:CRAIG NAZARIO MD 12/17/24 Reported Medications Magnesium Oxide (Magnesium Oxide) 400 Mg Tab, 1 TAB PO DAILY for 90 Days, #90 10/29/24 Meloxicam (Meloxicam) 15 Mg Tab, 1 TAB PO DAILY for 30 Days, #30 10/29/24 Sacubitril-Valsartan (Entresto 24-26 mg) 1 Tab Tab, 1 TAB PO BID for 30 Days, #60 10/29/24 Nitroglycerin (Nitrostat) 0.4 Mg Sub, 1 TAB PO UD for 33 Days, #100 10/29/24 Atorvastatin Calcium (ATORVASTATIN CALCIUM) 40 Mg Tab, 1 TAB PO DAILY for 90 Days, #90 10/29/24 Isosorbide Mononitrate (Isosorbide Mononitrate Er) 30 Mg Tab, 1 TAB PO DAILY for 90 Days, #90 10/29/24 Clopidogrel Bisulfate (CLOPIDOGREL) 75 Mg Tab, 1 TAB PO DAILY for 90 Days, #90 10/29/24 Ranolazine (Ranolazine ER) 500 Mg Tab, 1 TAB PO BID for 30 Days, #60 10/29/24 Furosemide (Furosemide) 40 Mg Tab, 1 TAB PO DAILY for 90 Days, #90 01/07/24 Ergocalciferol (Vitamin D) 50,000 Unit Cap, 1 CAP PO QWEEKLY 01/07/24 Omeprazole (Omeprazole Dr) 40 Mg Cap, 1 CAP PO DAILY for 90 Days, #90 01/07/24 Aspirin (Aspirin Low Dose) 81 Mg Chw, 1 TAB PO DAILY 01/07/24 Sevelamer Carbonate (Renvela) 800 Mg Tab, 2 TAB PO TID 01/07/24 Oxycodone HCl (Oxycodone Hydrochloride) 15 Mg Tab, 1 TAB PO QID for 30 Days, #120 01/07/24 Information Source: Patient, Spouse Mode of Arrival: Wheelchair Severity: Moderate Timing: Days Duration: Since onset Prehospital treatment: None Onset: At Rest Cardiac Risk Factors: None PE Risk Factors: None Past Medical History Past Medical History PAST MEDICAL HISTORY: CAD, CHF, COPD, DM, ESRD, HTN, RI Surgical History: CABG, PTCA Family History Family History: Reviewed,noncontributory to illness, No family hx of HTN, Unknown Social History Smoker: Non-Smoker Alcohol: Denies ETOH Use Drugs: Denies Drug Use Lives In: Home Patient Family History: FH: cancer G8 MOTHER FH: heart disease G8 FATHER Allergies: Coded Allergies: NO KNOWN ALLERGIES (Unverified , 01/05/24) Home Meds Active Scripts Cefpodoxime Proxetil (Cefpodoxime Proxetil) 200 Mg Tab, 1 TAB PO BID for 5 Days, #10 TAB Prov:MAYNOR WEBB 01/06/25 Magnesium Oxide (MAGNESIUM OXIDE) 400 Mg Tab, 1 TAB PO BID, #60 TAB 1 Refill Prov:MAYNOR WEBB 01/06/25 Ipratropium Terrell (Ipratropium Terrell) 0.02 % Brittany, 0.5 % HHN QIDP for 30 Days, #90 ML 3 Refills Prov:CRAIG NAZARIO MD 12/17/24 Albuterol Sulfate (Albuterol Sulfate) 1.25 Mg/3 Ml Neb, 1.25 MG IN QIDP for 30 Days, #90 INH 2 Refills Prov:CRAIG NAZARIO MD 12/17/24 Reported Medications Magnesium Oxide (Magnesium Oxide) 400 Mg Tab, 1 TAB PO DAILY for 90 Days, #90 10/29/24 Meloxicam (Meloxicam) 15 Mg Tab, 1 TAB PO DAILY for 30 Days, #30 10/29/24 Sacubitril-Valsartan (Entresto 24-26 mg) 1 Tab Tab, 1 TAB PO BID for 30 Days, #60 10/29/24 Nitroglycerin (Nitrostat) 0.4 Mg Sub, 1 TAB PO UD for 33 Days, #100 10/29/24 Atorvastatin Calcium (ATORVASTATIN CALCIUM) 40 Mg Tab, 1 TAB PO DAILY for 90 Days, #90 10/29/24 Isosorbide Mononitrate (Isosorbide Mononitrate Er) 30 Mg Tab, 1 TAB PO DAILY for 90 Days, #90 10/29/24 Clopidogrel Bisulfate (CLOPIDOGREL) 75 Mg Tab, 1 TAB PO DAILY for 90 Days, #90 10/29/24 Ranolazine (Ranolazine ER) 500 Mg Tab, 1 TAB PO BID for 30 Days, #60 10/29/24 Furosemide (Furosemide) 40 Mg Tab, 1 TAB PO DAILY for 90 Days, #90 01/07/24 Ergocalciferol (Vitamin D) 50,000 Unit Cap, 1 CAP PO QWEEKLY 01/07/24 Omeprazole (Omeprazole Dr) 40 Mg Cap, 1 CAP PO DAILY for 90 Days, #90 01/07/24 Aspirin (Aspirin Low Dose) 81 Mg Chw, 1 TAB PO DAILY 01/07/24 Sevelamer Carbonate (Renvela) 800 Mg Tab, 2 TAB PO TID 01/07/24 Oxycodone HCl (Oxycodone Hydrochloride) 15 Mg Tab, 1 TAB PO QID for 30 Days, #120 01/07/24 Vital Signs Vital Signs Date Time Temp Pulse Resp B/P (MAP) Pulse Ox O2 Delivery O2 Flow Rate FiO2 02/20/25 12:45 73 20 148/76 (100) 100 02/20/25 09:08 Nasal Cannula* 2 28 02/20/25 08:44 97.8 97.8 Physical Exam General-74 years old male, well nourished well developed. No apparent distress HEENT-atraumatic normocephalic Heart-regular rate and rhythm Lungs decreased breath sounds bilaterally Abdomen soft, nontender nondistended Musculoskeletal-no edema . Left upper AV fistula with a palpable thrill Neuro-AO x3, no focal deficits SEPSIS Sepsis Screen Date sepsis recognized/suspect: Feb 20, 2025 Time Sepsis recognized/suspect: 823 Recent Procedure: No On Antibiotic Therapy: No Respiratory Rate >20: No Heart Rate >90: No Temp<36 C (96.8 F) or >38.3 C: No SBP <90 or MAP <65 mmHG: No New Acute Mental Status Change: No Is the patient on CPAP, BIPAP,: No Physician Orders Chest Portable (02/20/25 10:31) Urinalysis (02/20/25 10:31) Ct Ab Pel Wo Con-No Oral Or Iv (02/20/25 11:42) Head Without Contrast (02/20/25 11:42) *[facility] (02/20/25 14:24) * Cardiology Consult (02/20/25 14:24) Vital Signs Date Time Temp Pulse Resp B/P (MAP) Pulse Ox O2 Delivery O2 Flow Rate FiO2 02/20/25 12:45 73 20 148/76 (100) 100 02/20/25 12:11 78 02/20/25 10:00 65 20 125/60 (81) 100 02/20/25 09:08 69 19 100 Nasal Cannula* 2 28 02/20/25 08:45 69 02/20/25 08:44 97.8 65 16 102/52 (69) 100 97.8 02/20/25 08:21 97.8 64 18 98/43 100 97.8 Laboratory Tests Test 02/20/25 11:05 Lactic Acid Level 1.2 mmol/L (0.4-2.0) White Blood Count 6.3 10^3/uL (4.4-10.8) Medications Medications Dose Ordered Sig/Edson Route Start Time Stop Time Status Last Admin Dose Admin Sodium Chloride 1,000 ml @ 1,000 mls/hr Q1H ONCE IV 02/20/25 10:45 02/20/25 11:44 DC 02/20/25 11:49 Results Labs Test 02/20/25 14:40 02/20/25 11:05 Range/Units Troponin I High Sensitivity 181 *H </=54 ng/L White Blood Count 6.3 4.4-10.8 10^3/uL Red Blood Count 3.99 L 4.5-5.90 10^6/uL Hemoglobin 13.1 L 13.5-17.5 g/dL Hematocrit 38.5 L 41.0-53.0 % Mean Corpuscular Volume 96.4 80.0-100.0 fL Mean Corpuscular Hemoglobin 32.8 H 28.0-32.0 pg Mean Corpuscular Hemoglobin Concent 34.0 32.0-36.0 g/dL Red Cell Distribution Width 16.2 H 11.8-14.3 % Platelet Count 180 140-450 10^3/uL Mean Platelet Volume 7.5 6.9-10.8 fL Neutrophils (%) (Auto) 66.7 37.0-80.0 % Lymphocytes (%) (Auto) 14.6 10.0-50.0 % Monocytes (%) (Auto) 16.2 H 0.0-12.0 % Eosinophils (%) (Auto) 1.9 0.0-7.0 % Basophils (%) (Auto) 0.6 0.0-2.0 % Neutrophils # (Auto) 4.2 1.6-8.6 10 ^3/uL Lymphocytes # (Auto) 0.9 0.4-5.4 10 ^3/uL Monocytes # (Auto) 1.0 0-1.3 10 ^3/uL Eosinophils # (Auto) 0.1 0-0.8 10 ^3/uL Basophils # (Auto) 0 0-0.2 10 ^3/uL Nucleated Red Blood Cells 0.0 % Prothrombin Time 11.9 H 9.3-11.8 sec Prothrombin Time INR 1.14 0.9-1.15 Activated Partial Thromboplast Time 28.0 24.5-34.5 SEC D-Dimer, Quantitative 1.40 H 0.0-0.49 mg/L FEU Sodium Level 134 L 136-145 mmol/L Potassium Level 5.1 3.5-5.1 mmol/L Chloride Level 92 L 98-107 mmol/L Carbon Dioxide Level 28 20-31 mmol/L Anion Gap 14 5-15 Blood Urea Nitrogen 80 *H 9-23 mg/dL Creatinine 9.81 H 0.700-1.30 mg/dL Glomerular Filtration Rate Calc 5 >90 mL/min BUN/Creatinine Ratio 8.2 L 10.0-20.0 Serum Glucose 59 L 74-106 mg/dL Lactic Acid Level 1.2 0.4-2.0 mmol/L Calcium Level 9.5 8.7-10.4 mg/dL Magnesium Level 3.0 H 1.6-2.6 mg/dL Total Bilirubin 0.3 0.2-1.0 mg/dL Aspartate Amino Transferase (AST) 43 H 13-40 U/L Alanine Aminotransferase (ALT) 52 H 7-40 U/L Alkaline Phosphatase 107 46-116 U/L B-Type Natriuretic Peptide 1178.26 0-100 pg/mL Total Protein 6.8 5.7-8.2 g/dL Albumin 4.2 3.2-4.8 g/dL Primary Diagnosis Dizziness End-stage renal disease on hemodialysis Saturday and Saturday elevated trop r/o acs Plan Patient says he had hypotension on dialysis Nephrology consult for end-stage renal disease on hemodialysis Cardiology consult for elevated troponin Check echocardiogram of the heart rule out abnormal regional wall motion renal diet hold off antihypertensive meds resume plavis, statin, scd heparin sq code full Plan discussed with: Patient Problems List: (1) Fluid overload Status: Acute (2) Elevated troponin Status: Acute Date of Service: Feb 20, 2025 Billing Provider: SELINA MAX MD Common Visit Codes: [id number] INP/OBS CARE (HIGH) SELINA MAX MD Feb 20, 2025 14:17
[2025-02-20] MEDS ORDERED: NITROGLYCERIN 0.4 MG SL TAB SL PRN (16:00)
[2025-02-20] MEDS ORDERED: ACETAMINOPHEN 325 MG TAB PO PRN (16:00)
[2025-02-20] MEDS ORDERED: HYDROcodone-ACET 5/325MG TAB PO PRN (16:00)
[2025-02-20] MEDS ORDERED: ONDANSETRON HCL 4 MG/2 ML VIAL IV PRN (16:00)
[2025-02-20] MEDS ORDERED: DOCUSATE SOD 100 MG CAP PO PRN (16:00)
[2025-02-20] MEDS ORDERED: MORPHINE SULFATE INJ 2 MG/ml SYRG IV PRN (16:00)
[2025-02-20 17:41] VITALS: BP 132/79; PULSE 78; RESP 18; TEMP 97; O2SAT 100
[2025-02-20 18:39] VITALS: BP 132/79; PULSE 78; RESP 18; TEMP 97; O2SAT 100
[2025-02-20 20:00] VITALS: PULSE 77
[2025-02-20 21:00] VITALS: BP 144/76; PULSE 86; RESP 22; TEMP 98; O2SAT 99
[2025-02-20] MEDS: ATORVASTATIN 20 MG TAB PO SCH (22:26)
[2025-02-20] MEDS: SODIUM CHLOR 0.9% PF (SALINE LOCK) 10ML VIAL/SYR IV SCH (22:27)
[2025-02-20] MEDS: HEPARIN SODIUM (PORCINE) 5000 UNITS/ML 1ML VIAL SC SCH (22:32)
--- NOTE | 2025-02-20 23:19 | ECG ---
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
[2025-02-20 23:43] LABS: Urine Protein, UAD 2+ (Negative)
[2025-02-21] VITALS (8 sets, daily range): BP systolic 130–151; BP diastolic 68–83; PULSE 73–83; RESP 16–18; TEMP 97.3–98.3; O2SAT 98–100
--- NOTE | 2025-02-21 09:34 | DVHINCON2 ---
Date of service: Feb 21, 2025 History of Present Illness HPI Patient is a 74-year-old gentleman who presented with 1 week of dizziness and reported low blood pressure. He comes to our office for cardiology followups. He was recently in the office and Entresto was stopped secondary to low blood pressure. He was told to increase his carvedilol to 12 0.5 mg twice daily. Patient is not short at date increased dose of carvedilol has been given to him or not. He mentions that he does get right-sided abdominal discomforts for the past week. Cardiology is involved for cardiac aspects of care. Imaging has revealed gallstones. Does have baseline history of systolic heart failure and component of acute on chronic heart failure could also have contributed to the clinical picture. Home Meds Active Scripts Cefpodoxime Proxetil (Cefpodoxime Proxetil) 200 Mg Tab, 1 TAB PO BID for 5 Days, #10 TAB Prov:MAYNOR WEBB RESIDENT 01/06/25 Magnesium Oxide (MAGNESIUM OXIDE) 400 Mg Tab, 1 TAB PO BID, #60 TAB 1 Refill Prov:MAYNOR WEBB RESIDENT 01/06/25 Ipratropium [place] (Ipratropium [place]) 0.02 % Brittany, 0.5 % HHN QIDP for 30 Days, #90 ML 3 Refills Prov:CRAIG NAZARIO MD 12/17/24 Albuterol Sulfate (Albuterol Sulfate) 1.25 Mg/3 Ml Neb, 1.25 MG IN QIDP for 30 Days, #90 INH 2 Refills Prov:CRAIG NAZARIO MD 12/17/24 Reported Medications Magnesium Oxide (Magnesium Oxide) 400 Mg Tab, 1 TAB PO DAILY for 90 Days, #90 10/29/24 Meloxicam (Meloxicam) 15 Mg Tab, 1 TAB PO DAILY for 30 Days, #30 10/29/24 Sacubitril-Valsartan (Entresto 24-26 mg) 1 Tab Tab, 1 TAB PO BID for 30 Days, #60 10/29/24 Nitroglycerin (Nitrostat) 0.4 Mg Sub, 1 TAB PO UD for 33 Days, #100 10/29/24 Atorvastatin Calcium (ATORVASTATIN CALCIUM) 40 Mg Tab, 1 TAB PO DAILY for 90 Days, #90 10/29/24 Isosorbide Mononitrate (Isosorbide Mononitrate Er) 30 Mg Tab, 1 TAB PO DAILY for 90 Days, #90 10/29/24 Clopidogrel Bisulfate (CLOPIDOGREL) 75 Mg Tab, 1 TAB PO DAILY for 90 Days, #90 10/29/24 Ranolazine (Ranolazine ER) 500 Mg Tab, 1 TAB PO BID for 30 Days, #60 10/29/24 Furosemide (Furosemide) 40 Mg Tab, 1 TAB PO DAILY for 90 Days, #90 01/07/24 Ergocalciferol (Vitamin D) 50,000 Unit Cap, 1 CAP PO QWEEKLY 01/07/24 Omeprazole (Omeprazole Dr) 40 Mg Cap, 1 CAP PO DAILY for 90 Days, #90 01/07/24 Aspirin (Aspirin Low Dose) 81 Mg Chw, 1 TAB PO DAILY 01/07/24 Sevelamer Carbonate (Renvela) 800 Mg Tab, 2 TAB PO TID 01/07/24 Oxycodone HCl (Oxycodone Hydrochloride) 15 Mg Tab, 1 TAB PO QID for 30 Days, #120 01/07/24 Past Medical History Others Past medical history includes end-stage renal disease on hemodialysis, coronary artery disease and status post CABG and PCI, ischemic cardiomyopathy, systolic heart failure, status post right nephrectomy, COPD on home oxygen, hypertension, hyperlipidemia, diabetes mellitus, BPH, history of symptomatic V-tach and status post ICD (Biotronik) implantation. 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 Patient has had PCI previously. On September 01, 2024 patient had PCI of LAD (shockwave) by Dr. Cardona. Patient Family History: FH: cancer G8 MOTHER FH: heart disease G8 FATHER Smoker: Quit Alocohol: None Drugs: None Lives with: With family Review of Systems Constitutional: Weakness Ears, Nose, & Throat: No symptom reported Eyes: No symptom reported Gastrointestinal: Abdominal Pain All Other Systems 14 point review of system was performed. Relevant findings as per above and as per HPI. Otherwise negative. H&P Exam Vital Signs Vital Signs Date Time Temp Pulse Resp B/P (MAP) Pulse Ox O2 Delivery O2 Flow Rate FiO2 02/21/25 08:38 97.3 74 18 131/68 (89) 100 97.3 02/20/25 20:00 Nasal Cannula* 2 28 General Appeara: Well developed Head Exam: Normal inspection Eye Exam: bilateral eye PERRL Mouth: Normal Inspection Pulmonary/Respiratory: Rhonci Cardiovascular/Chest: Normal inspection, Systolic murmur Peripheral Pulses: 2+ carotid (R), 2+ carotid (L), 2+ femoral (R), 2+ femoral (L) Abdominal Exam: Normal bowel sounds, Soft, No tenderness Neuro/Mental St: Alert, Oriented Appearance: Appropriate appearance Eye contact/ Speech: Cooperative Labs/Xrays Labs Test 02/20/25 22:58 02/20/25 14:40 02/20/25 11:05 Range/Units Urine Color Light-yellow Yellow Urine Clarity Clear Clear Urine pH 7.5 5.0-9.0 Urine Specific [place] 1.011 1.001-1.035 Urine Protein 2+ H Negative Urine Ketones Negative Negative Urine Blood Negative Negative /uL Urine Nitrite Negative Negative Urine Bilirubin Negative Negative Urine Urobilinogen Normal Negative mg/dL Urine Leukocyte Esterase Trace Negative /uL Urine RBC 1 0 - 3 /hpf Urine Microscopic WBC 9 H 0-3 /HPF Urine Squamous Epithelial Cells Few <5 /hpf Urine Renal Epithelial Cells Few None Seen /hpf Urine Bacteria None seen None Seen /hpf Urine Hyaline Casts Few 0 - 2 /lpf Urine Glucose 2+ H Normal mg/dL Troponin I High Sensitivity 181 *H </=54 ng/L White Blood Count 6.3 4.4-10.8 10^3/uL Red Blood Count 3.99 L 4.5-5.90 10^6/uL Hemoglobin 13.1 L 13.5-17.5 g/dL Hematocrit 38.5 L 41.0-53.0 % Mean Corpuscular Volume 96.4 80.0-100.0 fL Mean Corpuscular Hemoglobin 32.8 H 28.0-32.0 pg Mean Corpuscular Hemoglobin Concent 34.0 32.0-36.0 g/dL Red Cell Distribution Width 16.2 H 11.8-14.3 % Platelet Count 180 140-450 10^3/uL Mean Platelet Volume 7.5 6.9-10.8 fL Neutrophils (%) (Auto) 66.7 37.0-80.0 % Lymphocytes (%) (Auto) 14.6 10.0-50.0 % Monocytes (%) (Auto) 16.2 H 0.0-12.0 % Eosinophils (%) (Auto) 1.9 0.0-7.0 % Basophils (%) (Auto) 0.6 0.0-2.0 % Neutrophils # (Auto) 4.2 1.6-8.6 10 ^3/uL Lymphocytes # (Auto) 0.9 0.4-5.4 10 ^3/uL Monocytes # (Auto) 1.0 0-1.3 10 ^3/uL Eosinophils # (Auto) 0.1 0-0.8 10 ^3/uL Basophils # (Auto) 0 0-0.2 10 ^3/uL Nucleated Red Blood Cells 0.0 % Prothrombin Time 11.9 H 9.3-11.8 sec Prothrombin Time INR 1.14 0.9-1.15 Activated Partial Thromboplast Time 28.0 24.5-34.5 SEC D-Dimer, Quantitative 1.40 H 0.0-0.49 mg/L FEU Sodium Level 134 L 136-145 mmol/L Potassium Level 5.1 3.5-5.1 mmol/L Chloride Level 92 L 98-107 mmol/L Carbon Dioxide Level 28 20-31 mmol/L Anion Gap 14 5-15 Blood Urea Nitrogen 80 *H 9-23 mg/dL Creatinine 9.81 H 0.700-1.30 mg/dL Glomerular Filtration Rate Calc 5 >90 mL/min BUN/Creatinine Ratio 8.2 L 10.0-20.0 Serum Glucose 59 L 74-106 mg/dL Lactic Acid Level 1.2 0.4-2.0 mmol/L Calcium Level 9.5 8.7-10.4 mg/dL Magnesium Level 3.0 H 1.6-2.6 mg/dL Total Bilirubin 0.3 0.2-1.0 mg/dL Aspartate Amino Transferase (AST) 43 H 13-40 U/L Alanine Aminotransferase (ALT) 52 H 7-40 U/L Alkaline Phosphatase 107 46-116 U/L B-Type Natriuretic Peptide 1178.26 0-100 pg/mL Total Protein 6.8 5.7-8.2 g/dL Albumin 4.2 3.2-4.8 g/dL Assessment/Plan Plan Patient is a 74-year-old gentleman who presented with 1 week of dizziness and reported low blood pressure. He comes to our office for cardiology followups. He was recently in the office and Entresto was stopped secondary to low blood pressure. He was told to increase his carvedilol to 12 0.5 mg twice daily. Patient is not short at date increased dose of carvedilol has been given to him or not. He mentions that he does get right-sided abdominal discomforts for the past week. Cardiology is involved for cardiac aspects of care. Imaging has revealed gallstones. Does have baseline history of systolic heart failure and component of acute on chronic heart failure could also have contributed to the clinical picture. Missed his dialysis the day before presentation. Not in acute distress. Lying flat in bed. No JVD. Mucosa is pink and wet. No carotid bruit. Scattered rhonchi in the lungs is heard. No rales. Cardiac: Regular, no thrill. Systolic murmur 2/6 in the apex is heard. Abdomen is soft. There is no gross mass/hepatomegaly. Bowel sound is positive. Extremities do not reveal edema. Dorsalis pedis is 2+ bilateral Past medical history includes end-stage renal disease on hemodialysis, coronary artery disease and status post CABG and PCI, ischemic cardiomyopathy, systolic heart failure, status post right nephrectomy, COPD on home oxygen, hypertension, hyperlipidemia, diabetes mellitus, BPH, history of symptomatic V-tach and status post ICD (Biotronik) implantation. It is of note that patient's music intern w as Dr. 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 Patient has had PCI previously. On September 01, 2024 patient had PCI of LAD (shockwave) by Dr. Cardona. Echocardiogram of October 30, 2024 (performed in [facility]) revealed ejection fraction of 35-40%, moderate /MR Left heart catheterization of October 23, 2024 revealed MANAGER FILE of RCA and LCX. Patent stent in LAD. SVG to diagonal (small-vessel) was patent. Thomas to diagonal was patent with no disease. (Images reviewed and thomas may actually have been to ramus intermedius). There was no bypass to the RCA territory. WBC: 6.3 Hemoglobin: 13.1 D-dimer: 1.4 BNP: 1178.26 Creatinine: 9.81 Potassium: 5.1 Lactic acid: 1.2 Troponin (high sensitive): 225 - 225 - 181 Chest x-ray revealed: IMPRESSION: Interstitial pulmonary edema. CT of the abdomen and pelvis without contrast revealed: Abdomen/Pelvis: The pancreas, adrenal glands, and liver are grossly unremarkable. The prostate gland is moderately large, measuring 6.0 cm diameter. The bladder is not well distended and therefore not well evaluated. There are gallstones. The right kidney is surgically absent. Hypodense left renal lesion is incompletely characterized due to lack of IV contrast. Punctate splenic calcifications are most compatible prior granulomatous disease. The abdominal aorta is normal in co urse and caliber. There are moderate atherosclerotic calcifications. There is no free intraperitoneal air or fluid. There is no enlarged abdominal pelvic lymph node. There is diffuse gastric fold thickening. There is no small or large bowel wall thickening or dilatation. The appendix is normal. Other: The imaged lower thorax demonstrates ely shoshone coronary artery and aortic valvular calcifications. There is a small left pleural effusion with atelectasis. There is a small fat containing left inguinal hernia.. No acute osseous abnormality is evident. Impression: Diffuse gastric fold thickening, which may represent gastritis or underdistention. Other possibilities are not excluded. Right nephrectomy. Cholelithiasis. Moderate prostatomegaly. CT of the head revealed: IMPRESSION: 1. No acute intracranial abnormality. EKG reveals sinus rhythm, LVH with secondary ST-T changes Tele reveals sinus rhythm with occasions of ventricular tachycardia Patient is a 74-year-old gentleman who presented with generalized weakness, reported hypotension and right-sided abdominal pain. Does have increased troponin which has been flat and somehow decreasing. Presentation is not considered acute coronary syndrome. Increased troponin is assessed to reflect demand physiology at this point. Does have baseline history of coronary artery disease and has had PCI in August 2024 and repeated cardiac catheterization was performed in October 2024. At this point, continuation of dual antiplatelet therapy (on aspirin/Plavix) is advised. Does have some abdominal pain and the imaging has revealed gallstones. Is it possible that a gallstone is the culprit for presentation? Patient has not been septic and there is no leukocytosis. Telemetry reveals episodes of ventricular tachycardia. Patient's beta mark was recently increased in the office but it is unknown if the patient has been compliant with it. Secondary to hypotension, Entresto had been held as outpatient. Imaging could not revealed the findings in the left kidney also. Has not been compliant with hemodialysis Hypotension Ventricular tachycardia Acute on chronic systolic heart failure Ischemic cardiomyopathy Status post CABG Status post PCI End-stage renal disease on hemodialysis Noncompliant with hemodialysis Gallstones Increased D-dimer Cardiac suggestion for management: Manage on telemetry Follow-up electrolytes and kidney function tests and correct abnormalities Amiodarone: 200 mg p.o. b.i.d. Carvedilol: 12.5 mg p.o. b.i.d. Hold/stop Entresto at this point Continuation of aspirin/Plavix (81 mg/75 mg) is advised Echocardiogram Request for interrogation of the ICD (Biotronik) CT angio of the lungs is advised CT scan with contrast of the abdomen is justified Abdominal sonogram GI consultation is advised Further evaluation and management depends on the above and clinical course Thank you for consultation A total of 75 minutes was spent reviewing the patient record, examining the patient, making a diagnostic and therapeutic plan, discussing this plan with medical personnel, following up on diagnostic studies and following the patient for clinical stability excluding any and all procedures. At least 50% of this time was spent in direct, [id number] contact. Thank you for allowing me to participate in this patient's care. Further recommendations will depend on patient's clinical course. Please do not hesitate to contact me if you have any questions or concerns. This medical document was created using electronic medical record system with [employer] computerized dictation system. Although this document has been carefully reviewed, there may still be some phonetic and typographical errors. These areas are purely typographical due to the imperfection of the software programs, and do not reflect any compromise in the patient's medical care. Plan discussed with: Patient, Other (nurse) JOSE DONNELLY MD Feb 21, 2025 09:34
--- NOTE | 2025-02-21 09:52 | DVHPN2 ---
Subjective Patient doing well, tolerating p.o., A&O times 3-4. Reviewed: Care Plan Changes from previous H/P or p: No Changes General: Per HPI Objective Vitals Vital Signs Date Time Temp Pulse Resp B/P (MAP) Pulse Ox O2 Delivery O2 Flow Rate FiO2 02/21/25 08:38 97.3 74 18 131/68 (89) 100 97.3 02/20/25 20:00 Nasal Cannula* 2 28 Intake/Output Intake and Output 02/21/25 07:00 Intake Total 1680 ml Balance 1680 ml Intake Oral 680 ml IV Total 1000 ml # Voids 1 Exam GEN: Healthy appearing, well-developed, NAD. HEENT: NC/AT; MMM. CV: RRR, no m/r/g. LUNGS: CTAB, no w/r/c. ABD: Soft, NT/ND, NBS, no masses or organomegaly. EXT: skin Warm, well perfused. no rashes. No clubbing, cyanosis, or edema. NEURO: Ambulating with no limitations. No focal deficits. Medications Current Medications Medications Dose Ordered Sig/Edson Route Start Time Stop Time Status Last Admin Dose Admin Sodium Chloride 10 ml Q8HR IV 02/20/25 22:00 02/21/25 05:35 10 ML Docusate Sodium 100 mg BIDPRN PRN PO 02/20/25 16:00 Acetaminophen 650 mg Q6HP PRN PO 02/20/25 16:00 Acetaminophen/ Hydrocodone Bitart 1 tab Q4HP PRN PO 02/20/25 16:00 Ondansetron HCl 4 mg Q4HP PRN IV 02/20/25 16:00 Nitroglycerin 0.4 mg Q5MINP PRN SL 02/20/25 16:00 Morphine Sulfate 2 mg Q30M PRN IV 02/20/25 16:00 Clopidogrel Bisulfate 75 mg DAILY PO 02/21/25 10:00 Furosemide 40 mg DAILY PO 02/21/25 10:00 Atorvastatin Calcium 40 mg HS PO 02/20/25 22:00 02/20/25 22:26 40 MG Heparin Sodium (Porcine) 5,000 units BID SC 02/20/25 22:00 02/20/25 22:32 5,000 UNITS Aspirin 81 mg DAILY PO 02/21/25 10:00 Amiodarone HCl 200 mg Q12HR PO 02/21/25 10:00 Laboratory Results Laboratory Tests 02/20/25 11:05 Chemistry Test 02/20/25 11:05 Albumin 4.2 g/dL (3.2-4.8) Calcium Level 9.5 mg/dL (8.7-10.4) Magnesium Level 3.0 mg/dL (1.6-2.6) H Total Protein 6.8 g/dL (5.7-8.2) Coagulation Test 02/20/25 11:05 Prothrombin Time 11.9 sec (9.3-11.8) H Prothrombin Time INR 1.14 (0.9-1.15) Activated Partial Thromboplast Time 28.0 SEC (24.5-34.5) D-Dimer, Quantitative 1.40 mg/L FEU (0.0-0.49) H Cardiac Markers Test 02/20/25 11:05 B-Type Natriuretic Peptide 1178.26 pg/mL (0-100) LFT Test 02/20/25 11:05 Alanine Aminotransferase (ALT) 52 U/L (7-40) H Alkaline Phosphatase 107 U/L (46-116) Aspartate Amino Transferase (AST) 43 U/L (13-40) H Total Bilirubin 0.3 mg/dL (0.2-1.0) Urinalysis Test 02/20/25 22:58 Urine Color Light-yellow (Yellow) Urine Clarity Clear (Clear) Urine pH 7.5 (5.0-9.0) Urine Specific [place] 1.011 (1.001-1.035) Urine Protein 2+ (Negative) H Urine Ketones Negative (Negative) Urine Blood Negative /uL (Negative) Urine Nitrite Negative (Negative) Urine Bilirubin Negative (Negative) Urine Urobilinogen Normal mg/dL (Negative) Urine Leukocyte Esterase Trace /uL (Negative) Urine RBC 1 /hpf (0 - 3) Urine Microscopic WBC 9 /HPF (0-3) H Urine Squamous Epithelial Cells Few /hpf (<5) Urine Renal Epithelial Cells Few /hpf (None Seen) Urine Bacteria None seen /hpf (None Seen) Urine Hyaline Casts Few /lpf (0 - 2) Urine Glucose 2+ mg/dL (Normal) H Labs and/or images reviewed: Labs reviewed by me, Image(s) reviewed by me Assessment/Plan Assessment/Plan This is a 74 year old male presenting to the ED with chief complaint of dizziness/abdominal pain/hypotension. Patient reports that he has been hypotensive for the past week with a lower BP than usual, today reading 94/89. Patient relays that he has been experiencing weakness with associated dizziness, left sided abdominal pain, SOB, and sweats. Patient denies any chest pain, nausea, vomiting, or headache. Patient is a Cardiology yesterday and recommended to stopped taking Entresto and nitrates after episode of hypotension 70 to 80s on dialysis. Only the carvedilol 12.5 mg b.i.d.. 02/21: Patient doing well here for possible iatrogenic hypotension. Primary launch engineer is consulted and following closely. Patient with no further complaints. carrdiology recommends: Amiodarone: 200 mg p.o. b.i.d.. carvedilol: 12.5 mg p.o. b.i.d. , Hold/stop Entresto at this point , Continuation of aspirin/Plavix (81 mg/75 mg) is advised, Echocardiogram, Request for interrogation of the ICD ([employer]), CT angio of the lungs is advised, CT scan with contrast of the abdomen is justified , Abdominal sonogram Hypotension, iatrogenic, polypharmacy NSTEMI, Troponinemia, rule out type 1 Ventricular tachycardia systolic heart failure , chronic Ischemic cardiomyopathy Status post CABG Status post PCI End-stage renal disease on hemodialysis Noncompliant with hemodialysis Gallstones Increased D-dimer Plan: Tylenol, prn pain control Amiodarone 200 mg b.i.d. Aspirin 81 daily Lipitor 40 mg nightly Plavix 75 mg daily Lasix 40 mg daily On heparin drip Chest pain protocol Prn Zofran for nausea Cardiac diet Tele Full code Plan discussed with: Patient Date of Service: Feb 21, 2025 Billing Provider: CHRISSIE THOMAS MD Common Visit Codes: [id number] INP/OBS CARE(HIGH) CHRISSIE THOMAS MD Feb 21, 2025 09:52
[2025-02-21] MEDS: FUROSEMIDE 40 MG TAB PO SCH (10:30)
[2025-02-21] MEDS: CLOPIDOGREL BISULFATE 75 MG TAB PO SCH (10:30)
[2025-02-21] MEDS: AMIODARONE HCL 200 MG TAB PO SCH (10:31)
[2025-02-21] MEDS: CARVEDILOL 12.5 MG TAB PO ONE (10:31)
--- NOTE | 2025-02-21 11:11 | DVH ---
INDICATION: R/O Gallstones TECHNIQUE: Multiple real-time sonographic images of the abdomen were obtained. COMPARISON: None FINDINGS: Liver is homogenous in echogenicity. The liver measures 14.7 cm. No intrahepatic biliary ductal dilatation is noted. The gallbladder wall measures 0.4 cm and is unremarkable. Cholelithiasis. No pericholecystic fluid or edema. The common duct measures 0.9 cm and is unremarkable. The right kidney is surgically absent. The left kidney measures 11.9 cm. No hydronephrosis. Increased echogenicity of the left kidney. Left upper pole cyst measures 1.0 cm. The spleen measures 10.8 cm, within normal limits. The echogenicity is within normal limits. The pancreas is not well visualized due to obscuration from bowel gas. The visualized portions of the IVC and aorta are grossly unremarkable. IMPRESSION: Cholelithiasis. Prominent common bile duct measuring 0.9 cm. Increased echogenicity of the left kidney can be seen in chronic medical renal disease.
--- NOTE | 2025-02-21 11:39 | DVHINCON2 ---
DATE OF CONSULTATION: 02/21/2025 CONSULTING PHYSICIAN: Dr. Lucas REASON FOR CONSULTATION: Management of dialysis. HISTORY OF PRESENT ILLNESS: The patient is a 74-year-old -Swiss gentleman who is well known to me. He is one of our chronic dialysis patients at the clinic. He has been admitted to this hospital multiple times over the last year due to congestive heart failure and cardiac arrhythmias. This time, he came in complaining of dizzy spells. He says his heart rate during dialysis has been going up and down, as high as 130 per minute and as low as 40 per minute. He has a pacemaker. He does not understand why his heart rate is so variable. When the heart rate goes high or low, his blood pressure drops during dialysis, which limits their ability to remove fluid, so he has been scheduling extra treatments. Nevertheless, he came to the hospital to be checked because he was feeling dizzy and felt that his heart rate was not regular. Here in the hospital, he is more stable. He has been admitted to telemetry. He is awaiting Cardiology evaluation. I am being consulted to handle his dialysis treatments. REVIEW OF SYSTEMS: Otherwise unremarkable. He denies any chest pain at the time. SOCIAL HISTORY: Unremarkable. HOME MEDICATIONS: Include magnesium supplements, ipratropium, albuterol, meloxicam. He takes Entresto, nitroglycerin, atorvastatin, isosorbide, Plavix, Ranexa, furosemide, vitamin D3, omeprazole, sevelamer and oxycodone. FAMILY HISTORY: Negative for chronic conditions. PHYSICAL EXAMINATION: VITAL SIGNS: Blood pressure 131/60, heart rate 74, respirations 18, temperature 97.3. GENERAL: The patient is an elderly -Swiss gentleman who appears to be chronically ill in no acute distress. Alert and oriented x 3. HEENT: Shows pale oral mucosa and conjunctivae. NECK: There is no jugular venous distention. LUNGS: Show up crackles at the bases. CARDIOVASCULAR: Shows irregularly irregular rate with 1/6 systolic murmur. ABDOMEN: Soft, nontender. No organomegaly. No ascites. EXTREMITIES: Show no clubbing, cyanosis. There is no edema in the legs. NEUROLOGIC: Nonfocal. LABORATORY FINDINGS: Hemoglobin 13.1. Sodium 134, potassium 5.1, bicarbonate 28, creatinine 9. IMAGING DATA: Chest x-ray showed prominent pulmonary vasculature. No pneumonia. ASSESSMENT AND PLAN: * End-stage renal disease with very mild hyperkalemia. * Mild pulmonary congestion. * History of coronary artery disease with ischemic cardiomyopathy and cardiac arrhythmias. * Anemia of renal disease. Hemoglobin is actually above target level. * Controlled hypertension. I will order dialysis for today. There has been a shortage of nurses over the weekend; however, I asked them to please obtain a nurse so we can do his treatment today. We will try to remove 3-3.5 liters of fluid and use a low potassium bath. He should see Cardiology regarding the cardiac arrhythmias and bradycardia. Continue home medications including antihypertensives and phosphate binders. He does not need Epogen. Thank you for the consult. Mor Joshi MD EVT/EKT TID: [id number] RECEIPT: [id number]
--- NOTE | 2025-02-21 13:05 | DVH ---
Indication: small left pleural effusion with atelectasis Technique: CT axial images of the chest are obtained with intravenous contrast per CT angiogram prot ocol. Coronal and sagittal reformats were obtained. Radiation Dose Information: CTDI volume is 12.98 mGy. Dose-length product is 1.72 mGy*cm Comparison: US CHEST ULTRASOUND on DOS: 01/04/25, FINDINGS: Enlargement of the main pulmonary artery measuring 4.3 cm. No filling defects within the main left ri ght pulmonary arteries. Segmental and subsegmental branches are suboptimally opacified/characterized . Trachea patent. No pneumothorax. Left upper lobe lingular segment, left lower lobe consolidation, ate lectasis. Right lower lobe atelectasis. Small left, Tiny right pleural effusions. Heart enlarged. Coronary artery calcification disease. Aortic atherosclerotic disease. No supraclav icular or axillary lymphadenopathy. Cholelithiasis. Splenic calcifications consistent with remote granulomatous disease. Gynecomastia. No aggressive osseous process. Median sternotomy wires. IMPRESSION: No evidence for large pulmonary embolism. Left upper lobe lingular segment, left lower lobe consolidation/atelectasis. Right lower lobe atelec tasis. Small left and tiny right pleural effusions. Cardiomegaly, coronary artery calcification disease. Enlarged main pulmonary artery which can be seen with pulmonary artery hypertension. Cholelithiasis. Gynecomastia. Other findings as described
--- NOTE | 2025-02-21 13:16 | DVHSR ---
APPROVED REPORT EXAM: Two-dimensional and M-mode echocardiogram with Doppler and color Doppler. Blood Pressure: 131/68 mmHg INDICATION Elevated troponin Rule out ACS Surgery/Intervention Pacemaker: CABG: RISK FACTORS Height: 5'9", Weight: 167 DIMENSIONS LVDd5.6 (3.8-5.7cm)LA (2D)4.8 (1.9-4.0cm)Aortic Root3.4 (2.0-3.7cm) LVDs4.9 (2.5-4.0cm)LA (MM) (1.9-4.0cm)Aortic Cusp Exc0.7 (1.5-2.0cm) EF (%) 35.0 (55-70%)Rt. Atrium4.0 (1.9-4.0cm)Asc. Aorta cm IVSd1.2 (0.7-1.1cm)RV (D)4.5 (1.8-2.4cm) PWd0.9 (0.7-1.1cm) Mitral Valve MitralMitral Stenosis E wave1.44m/sMV Mean GR.mmHg A wave1.21m/sMV Peak GR.mmHg E/A ratio1.22D MVAcm2 DECEL [id number] 1/2 Timems Aortic Valve Aortic ValveAortic Stenosis V10.87m/Bhavesh Mean GR.6mmHg V21.82m/Bhavesh Peak GR.13mmHg LVOT Diameter2.0 (1.8-2.4cm)Doppler AVA1.50cm2 Pulmonic Valve V20.91m/s Tricuspid Valve TR Velocity2.99m/s [id number] Conclusion Left Ventricle: Mild concentric left ventricular hypertrophy is seen. Left ventricle is mildly dilate d. LVEF was at 35 - 40%. Local wall motion abmalities including proximal to mid inferior wall Akines ia and Myocardial thinning were seen. Compatible with ischemic cardiomyopathy and previous RCA/LCx My ocardial infarction. Right ventricle is dilated with preserved systolic function. Left Atrium is moderately dilated. Righ t Atrium was mildly dilated. Pacing wire was seen in right sided chambers. Aortic valve was trileaflet with calcified cusps and reduced opedning. Up to moderate Aortic stenosis was considered. Peak / Mean pressure gradients across Aortic valve were only 14/7 mmHg. Calculated A VA was 1.5 cm2. There was no Aortic Insufficiency. Mitral valve posterior leaflet was tethered secondary to local Myocardial thinning. It was also calci fied. Secondary to this tethering, there was moderate to severe Mitral Regurgitation. There was no Mi tral stenosis There was mild to moderate Tricuspid regurgitation. Right ventricular systolic pressure was assessed at 39 mmHg. Pulmonary valve revealed mild insusfficiency. IVC was normal sized with normal respiratory variation. There was no pericardial effuseion. Posterior pericardium was thicikened. No sign for constriction wa s seen.
[2025-02-21 13:39] LABS: Hematocrit 36.4 % (41.0-53.0); Hemoglobin 12.1 g/dL (13.5-17.5); Mean Corpuscular Hemoglobin 32.1 pg (28.0-32.0); Mean Corpuscular Volume 96.4 fL (80.0-100.0); Nucleated Red Blood Cells % 0.1 %
[2025-02-21 13:58] LABS: Albumin 4.0 g/dL (3.2-4.8); Alkaline Phosphatase 96 U/L (46-116); Anion Gap 14 (5-15); BUN/Creatinine Ratio 6.3 (10.0-20.0); Calcium 9.3 mg/dL (8.7-10.4); Carbon Dioxide 27 mmol/L (20-31); Total Protein 6.7 g/dL (5.7-8.2)
[2025-02-21 14:07] LABS: Alanine Aminotransferase 46 U/L (7-40); Bilirubin, Total 0.2 mg/dL (0.2-1.0); Blood Urea Nitrogen 75 mg/dL (9-23); Chloride 94 mmol/L (98-107); Glucose 168 mg/dL (74-106); Potassium 5.4 mmol/L (3.5-5.1); Sodium 135 mmol/L (136-145)
--- NOTE | 2025-02-21 17:07 | DVHINCON2 ---
Date of service: Feb 21, 2025 Referring Physician Madan Reason for Consultation Gallstones History of Present Illness Patient is a 74-year-old gentleman who presented with 1 week of dizziness and reported low blood pressure. He was recently by cardio;office and Entresto was stopped secondary to low blood pressure. He was told to increase his carvedilol to 12 0.5 mg twice daily. He mentions that he does get right-sided abdominal discomforts for the past week. Cardiology is involved for cardiac aspects of care. Imaging has revealed gallstones. GI was consulted for the same. Renal services have been having trouble with dialysis because of low blood pressure and elevated heart rate Echocardiogram is abnormal with a ejection fraction of 35-40% and mitral regurgitation Past Medical History PAST MEDICAL HISTORY: CAD, CHF, COPD, DM, ESRD, HTN, [place] Past Surgical History Surgical History: CABG, PTCA Family History: FH: cancer G8 MOTHER FH: heart disease G8 FATHER Allergies: Coded Allergies: NO KNOWN ALLERGIES (Unverified , 01/05/24) Home Meds Active Scripts Cefpodoxime Proxetil (Cefpodoxime Proxetil) 200 Mg Tab, 1 TAB PO BID for 5 Days, #10 TAB Prov:MAYNOR WEBB RESIDENT 01/06/25 Magnesium Oxide (MAGNESIUM OXIDE) 400 Mg Tab, 1 TAB PO BID, #60 TAB 1 Refill Prov:MAYNOR EWBB RESIDENT 01/06/25 Ipratropium Rena Lara (Ipratropium Rena Lara) 0.02 % Brittany, 0.5 % HHN QIDP for 30 Days, #90 ML 3 Refills Prov:CRAIG NAZARIO MD 12/17/24 Albuterol Sulfate (Albuterol Sulfate) 1.25 Mg/3 Ml Neb, 1.25 MG IN QIDP for 30 Days, #90 INH 2 Refills Prov:CRAIG NAZARIO MD 12/17/24 Reported Medications Magnesium Oxide (Magnesium Oxide) 400 Mg Tab, 1 TAB PO DAILY for 90 Days, #90 10/29/24 Meloxicam (Meloxicam) 15 Mg Tab, 1 TAB PO DAILY for 30 Days, #30 10/29/24 Sacubitril-Valsartan (Entresto 24-26 mg) 1 Tab Tab, 1 TAB PO BID for 30 Days, #60 10/29/24 Nitroglycerin (Nitrostat) 0.4 Mg Sub, 1 TAB PO UD for 33 Days, #100 10/29/24 Atorvastatin Calcium (ATORVASTATIN CALCIUM) 40 Mg Tab, 1 TAB PO DAILY for 90 Days, #90 10/29/24 Isosorbide Mononitrate (Isosorbide Mononitrate Er) 30 Mg Tab, 1 TAB PO DAILY for 90 Days, #90 10/29/24 Clopidogrel Bisulfate (CLOPIDOGREL) 75 Mg Tab, 1 TAB PO DAILY for 90 Days, #90 10/29/24 Ranolazine (Ranolazine ER) 500 Mg Tab, 1 TAB PO BID for 30 Days, #60 10/29/24 Furosemide (Furosemide) 40 Mg Tab, 1 TAB PO DAILY for 90 Days, #90 01/07/24 Ergocalciferol (Vitamin D) 50,000 Unit Cap, 1 CAP PO QWEEKLY 01/07/24 Omeprazole (Omeprazole Dr) 40 Mg Cap, 1 CAP PO DAILY for 90 Days, #90 01/07/24 Aspirin (Aspirin Low Dose) 81 Mg Chw, 1 TAB PO DAILY 01/07/24 Sevelamer Carbonate (Renvela) 800 Mg Tab, 2 TAB PO TID 01/07/24 Oxycodone HCl (Oxycodone Hydrochloride) 15 Mg Tab, 1 TAB PO QID for 30 Days, #120 01/07/24 Current Medications Current Medications Medications (Trade) Dose Ordered Sig/Edson Route PRN Reason Start Time Stop Time Status Last Admin Sodium Chloride (Saline Lock Ns) 10 ml Q8HR IV 02/20/25 22:00 02/21/25 14:00 Clopidogrel Bisulfate (Plavix) 75 mg DAILY PO 02/21/25 10:00 02/21/25 10:30 Furosemide (Lasix Tablet) 40 mg DAILY PO 02/21/25 10:00 02/21/25 10:30 Atorvastatin Calcium (Lipitor) 40 mg HS PO 02/20/25 22:00 02/20/25 22:26 Heparin Sodium (Porcine) 5,000 units BID SC 02/20/25 22:00 02/21/25 10:38 Aspirin 81 mg DAILY PO 02/21/25 10:00 02/21/25 10:30 Amiodarone HCl (Cordarone Tablet) 200 mg Q12HR PO 02/21/25 10:00 02/21/25 10:31 Vital Signs Vital Signs Date Time Temp Pulse Resp B/P (MAP) Pulse Ox O2 Delivery O2 Flow Rate FiO2 02/21/25 16:54 97.5 78 17 132/75 (94) 98 97.5 02/21/25 08:00 Nasal Cannula* 2 28 Physical Exam General-74 years old male, well nourished well developed. No apparent distress HEENT-atraumatic normocephalic Heart-regular rate and rhythm Lungs decreased breath sounds bilaterally Abdomen soft, nontender nondistended Musculoskeletal-no edema . Left upper AV fistula with a palpable thrill Neuro-AO x3, no focal deficits Labs/Diagnostic Data Labs Test 02/21/25 13:32 02/20/25 22:58 02/20/25 14:40 02/20/25 11:05 Range/Units White Blood Count 4.5 # 4.4-10.8 10^3/uL Red Blood Count 3.77 L 4.5-5.90 10^6/uL Hemoglobin 12.1 L 13.5-17.5 g/dL Hematocrit 36.4 L 41.0-53.0 % Mean Corpuscular Volume 96.4 80.0-100.0 fL Mean Corpuscular Hemoglobin 32.1 H 28.0-32.0 pg Mean Corpuscular Hemoglobin Concent 33.4 32.0-36.0 g/dL Red Cell Distribution Width 15.8 H 11.8-14.3 % Platelet Count 155 140-450 10^3/uL Mean Platelet Volume 7.5 6.9-10.8 fL Neutrophils (%) (Auto) 59.9 37.0-80.0 % Lymphocytes (%) (Auto) 20.2 10.0-50.0 % Monocytes (%) (Auto) 17.5 H 0.0-12.0 % Eosinophils (%) (Auto) 2.1 0.0-7.0 % Basophils (%) (Auto) 0.3 0.0-2.0 % Neutrophils # (Auto) 2.7 1.6-8.6 10 ^3/uL Lymphocytes # (Auto) 0.9 0.4-5.4 10 ^3/uL Monocytes # (Auto) 0.8 0-1.3 10 ^3/uL Eosinophils # (Auto) 0.1 0-0.8 10 ^3/uL Basophils # (Auto) 0 0-0.2 10 ^3/uL Nucleated Red Blood Cells 0.1 % Sodium Level 135 L 136-145 mmol/L Potassium Level 5.4 H 3.5-5.1 mmol/L Chloride Level 94 L 98-107 mmol/L Carbon Dioxide Level 27 20-31 mmol/L Anion Gap 14 5-15 Blood Urea Nitrogen 75 H 9-23 mg/dL Creatinine 11.83 #*H 0.700-1.30 mg/dL Glomerular Filtration Rate Calc 4 >90 mL/min BUN/Creatinine Ratio 6.3 L 10.0-20.0 Serum Glucose 168 #H 74-106 mg/dL Calcium Level 9.3 8.7-10.4 mg/dL Total Bilirubin 0.2 0.2-1.0 mg/dL Aspartate Amino Transferase (AST) 36 13-40 U/L Alanine Aminotransferase (ALT) 46 H 7-40 U/L Alkaline Phosphatase 96 46-116 U/L Total Protein 6.7 5.7-8.2 g/dL Albumin 4.0 3.2-4.8 g/dL Urine Color Light-yellow Yellow Urine Clarity Clear Clear Urine pH 7.5 5.0-9.0 Urine Specific [place] 1.011 1.001-1.035 Urine Protein 2+ H Negative Urine Ketones Negative Negative Urine Blood Negative Negative /uL Urine Nitrite Negative Negative Urine Bilirubin Negative Negative Urine Urobilinogen Normal Negative mg/dL Urine Leukocyte Esterase Trace Negative /uL Urine RBC 1 0 - 3 /hpf Urine Microscopic WBC 9 H 0-3 /HPF Urine Squamous Epithelial Cells Few <5 /hpf Urine Renal Epithelial Cells Few None Seen /hpf Urine Bacteria None seen None Seen /hpf Urine Hyaline Casts Few 0 - 2 /lpf Urine Glucose 2+ H Normal mg/dL Troponin I High Sensitivity 181 *H </=54 ng/L Prothrombin Time 11.9 H 9.3-11.8 sec Prothrombin Time INR 1.14 0.9-1.15 Activated Partial Thromboplast Time 28.0 24.5-34.5 SEC D-Dimer, Quantitative 1.40 H 0.0-0.49 mg/L FEU Lactic Acid Level 1.2 0.4-2.0 mmol/L Magnesium Level 3.0 H 1.6-2.6 mg/dL B-Type Natriuretic Peptide 1178.26 0-100 pg/mL CT Angiography IMPRESSION: No evidence for large pulmonary embolism. Left upper lobe lingular segment, left lower lobe consolidation/atelectasis. Right lower lobe atelectasis. Small left and tiny right pleural effusions. Cardiomegaly, coronary artery calcification disease. Enlarged main pulmonary artery which can be seen with pulmonary artery hypertension. Cholelithiasis. Gynecomastia. Abd USG IMPRESSION: Cholelithiasis. Prominent common bile duct measuring 0.9 cm. Increased echogenicity of the left kidney can be seen in chronic medical renal disease. CT SCAN ABD PELVIS Impression: Diffuse gastric fold thickening, which may represent gastritis or underdistention. Other possibilities are not excluded. Right nephrectomy. Cholelithiasis. Moderate prostatomegaly. Problems(with codes): (1) Elevated troponin (2) Fluid overload (3) Acute exacerbation of congestive heart failure (4) Non-STEMI (non-ST elevated myocardial infarction) (5) Generalized weakness (6) Symptomatic bradycardia Plan/Recommendation Plan Likely asymptomatic cholelithiasis with normal liver enzymes at this time Continue conservative observation and management; patient is a poor surgical candidate I will trend the liver enzymes and is abdominal pain Diet as tolerated If the alkaline phosphatase or bilirubin elevated then we can consider an MRCP, at this time there were normal Plan discussed with: Patient MAR SPARKS MD Feb 21, 2025 17:07
[2025-02-22] VITALS (8 sets, daily range): BP systolic 123–151; BP diastolic 59–80; PULSE 70–82; RESP 16–20; TEMP 97.6–98.2; O2SAT 94–100
[2025-02-22 05:57] LABS: Hematocrit 36.9 % (41.0-53.0); Hemoglobin 12.4 g/dL (13.5-17.5); Mean Corpuscular Hemoglobin 32.8 pg (28.0-32.0); Mean Corpuscular Volume 97.7 fL (80.0-100.0); Nucleated Red Blood Cells % 0.1 %
[2025-02-22 06:31] LABS: Alkaline Phosphatase 89 U/L (46-116); Anion Gap 10 (5-15); Calcium 9.4 mg/dL (8.7-10.4); Potassium 5.0 mmol/L (3.5-5.1); Sodium 138 mmol/L (136-145); Total Protein 6.9 g/dL (5.7-8.2)
[2025-02-22 06:32] LABS: Alanine Aminotransferase 48 U/L (7-40); Albumin 4.1 g/dL (3.2-4.8); BUN/Creatinine Ratio 5.8 (10.0-20.0); Blood Urea Nitrogen 48 mg/dL (9-23); Carbon Dioxide 32 mmol/L (20-31); Chloride 96 mmol/L (98-107); Glucose 147 mg/dL (74-106)
[2025-02-22 06:33] LABS: Bilirubin, Total 0.3 mg/dL (0.2-1.0)
--- NOTE | 2025-02-22 08:25 | DVHPN2 ---
Progress Note - Dictate Date Seen: Feb 22, 2025 Medical Necessity Reason Pt with a Central, PICC or Fol: No vital signs Vital Sign Date Time Temp Pulse Resp B/P (MAP) Pulse Ox O2 Delivery O2 Flow Rate FiO2 02/22/25 05:00 98.2 81 16 126/73 (90) 94 98.2 02/21/25 20:00 Nasal Cannula* 2 28 Total Intake and Output 02/21/25 02/21/25 02/22/25 15:00 23:00 07:00 Intake Total 650 ml Balance 650 ml medications Current Medications Medications Dose Ordered Sig/Edson Route Start Time Stop Time Status Last Admin Dose Admin Sodium Chloride 10 ml Q8HR IV 02/20/25 22:00 02/22/25 05:30 10 ML Docusate Sodium 100 mg BIDPRN PRN PO 02/20/25 16:00 Acetaminophen 650 mg Q6HP PRN PO 02/20/25 16:00 Acetaminophen/ Hydrocodone Bitart 1 tab Q4HP PRN PO 02/20/25 16:00 Ondansetron HCl 4 mg Q4HP PRN IV 02/20/25 16:00 Nitroglycerin 0.4 mg Q5MINP PRN SL 02/20/25 16:00 Morphine Sulfate 2 mg Q30M PRN IV 02/20/25 16:00 Clopidogrel Bisulfate 75 mg DAILY PO 02/21/25 10:00 02/21/25 10:30 75 MG Furosemide 40 mg DAILY PO 02/21/25 10:00 02/21/25 10:30 40 MG Atorvastatin Calcium 40 mg HS PO 02/20/25 22:00 02/21/25 21:01 40 MG Heparin Sodium (Porcine) 5,000 units BID SC 02/20/25 22:00 02/21/25 10:38 5,000 UNITS Aspirin 81 mg DAILY PO 02/21/25 10:00 02/21/25 10:30 81 MG Amiodarone HCl 200 mg Q12HR PO 02/21/25 10:00 02/21/25 21:01 200 MG laboratory and microbiology Laboratory Tests 02/22/25 05:36 Test 02/22/25 05:36 Range/Units Serum Glucose 147 H 74-106 mg/dL Assessment/Plan Patient is a 74-year-old gentleman who presented with 1 week of dizziness and reported low blood pressure. He comes to our office for cardiology followups. He was recently in the office and Entresto was stopped secondary to low blood pressure. He was told to increase his carvedilol to 12 0.5 mg twice daily. Patient is not short at date increased dose of carvedilol has been given to him or not. He mentions that he does get right-sided abdominal discomforts for the past week. Cardiology is involved for cardiac aspects of care. Imaging has revealed gallstones. Does have baseline history of systolic heart failure and component of acute on chronic heart failure could also have contributed to the clinical picture. Missed his dialysis the day before presentation. Not in acute distress. Lying flat in bed. No JVD. Mucosa is pink and wet. No carotid bruit. Scattered rhonchi in the lungs is heard. No rales. Cardiac: Regular, no thrill. Systolic murmur 2/6 in the apex is heard. Abdomen is soft. There is no gross mass/hepatomegaly. Bowel sound is positive. Extremities do not reveal edema. Dorsalis pedis is 2+ bilateral Past medical history includes end-stage renal disease on hemodialysis, coronary artery disease and status post CABG and PCI, ischemic cardiomyopathy, systolic heart failure, status post right nephrectomy, COPD on home oxygen, hypertension, hyperlipidemia, diabetes mellitus, BPH, history of symptomatic V-tach and status post ICD (Biotronik) implantation. It is of note that patient's practice nurse was Dr. 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 Patient has had PCI previously. On September 01, 2024 patient had PCI of LAD (shockwave) by Dr. Cardona. Echocardiogram of October 30, 2024 (performed in [facility]) revealed ejection fraction of 35-40%, moderate /MR Left heart catheterization of October 23, 2024 revealed NECK CUTTER of RCA and LCX. Patent stent in LAD. SVG to diagonal (small-vessel) was patent. Thomas to diagonal was patent with no disease. (Images reviewed and thomas may actually have been to ramus intermedius). There was no bypass to the RCA territory. WBC: 6.3 - 4.5 - 5.0 Hemoglobin: 13.1 - 12.1 - 12.4 D-dimer: 1.4 BNP: 1178.26 Creatinine: 9.81 - 11.83 - 8.26 Potassium: 5.1 - 5.4 - 5.0 Lactic acid: 1.2 Troponin (high sensitive): 225 - 225 - 181 Chest x-ray revealed: IMPRESSION: Interstitial pulmonary edema. CT of the abdomen and pelvis without contrast revealed: Abdomen/Pelvis: The pancreas, adrenal glands, and liver are grossly unremarkable. The prostate gland is moderately large, measuring 6.0 cm diameter. The bladder is not well distended and therefore not well evaluated. There are gallstones. The right kidney is surgically absent. Hypodense left renal lesion is incompletely characterized due to lack of IV contrast. Punctate splenic calcifications are most compatible prior granulomatous disease. The abdominal aorta is normal in course and caliber. There are moderate atherosclerotic calcifications. There is no free intraperitoneal air or fluid. There is no enlarged abdominal pelvic lymph node. There is diffuse gastric fold thickening. There is no small or large bowel wall thickening or dilatation. The appendix is normal. Other: The imaged lower thorax demonstrates deering coronary artery and aortic valvular calcifications. There is a small left pleural effusion with atelectasis. There is a small fat containing left inguinal hernia.. No acute osseous abnormality is evident. Impression: Diffuse gastric fold thickening, which may represent gastritis or underdistention. Other possibilities are not excluded. Right nephrectomy. Cholelithiasis. Moderate prostatomegaly. CT of the head revealed: IMPRESSION: 1. No acute intracranial abnormality. CTA of lungs revealed: Enlargement of the main pulmonary artery measuring 4.3 cm. No filling defects within the main left right pulmonary arteries. Segmental and subsegmental branches are suboptimally opacified/characterized. Trachea patent. No pneumothorax. Left upper lobe lingular segment, left lower lobe consolidation, atelectasis. Right lower lobe atelectasis. Small left, Tiny right pleural effusions. Heart enlarged. Coronary artery calcification disease. Aortic atherosclerotic disease. No supraclavicular or axillary lymphadenopathy. Cholelithiasis. Splenic calcifications consistent with remote granulomatous disease. Gynecomastia. No aggressive osseous process. Median sternotomy wires. IMPRESSION: No evidence for large pulmonary embolism. Left upper lobe lingular segment, left lower lobe consolidation/atelectasis. Right lower lobe atelectasis. Small left and tiny right pleural effusions. Cardiomegaly, coronary artery calcification disease. Enlarged main pulmonary artery which can be seen with pulmonary artery hypertension. Cholelithiasis. Gynecomastia. Other findings as described Abdominal Ultrasound revealed: IMPRESSION: Cholelithiasis. Prominent common bile duct measuring 0.9 cm. Increased echogenicity of the left kidney can be seen in chronic medical renal disease. EKG reveals sinus rhythm, LVH with secondary ST-T changes Tele reveals sinus rhythm with occasions of ventricular tachycardia Echocardiogram revealed: Left Ventricle: Mild concentric left ventricular hypertrophy is seen. Left ventricle is mildly dilated. LVEF was at 35 - 40%. Local wall motion abmalities including proximal to mid inferior wall Akinesia and Myocardial thinning were seen. Compatible with ischemic cardiomyopathy and previous RCA/LCx Myocardial infarction. Right ventricle is dilated with preserved systolic function. Left Atrium is moderately dilated. Right Atrium was mildly dilated. Pacing wire was seen in right sided chambers. Aortic valve was trileaflet with calcified cusps and reduced opening. Up to moderate Aortic stenosis was considered. Peak / Mean pressure gradients across Aortic valve were only 14/7 mmHg. Calculated BETTY was 1.5 cm2. There was no Aortic Insufficiency. Mitral valve posterior leaflet was tethered secondary to local Myocardial thinning. It was also calcified. Secondary to this tethering, there was moderate to severe Mitral Regurgitation. There was no Mitral stenosis There was mild to moderate Tricuspid regurgitation. Right ventricular systolic pressure was assessed at 39 mmHg. Pulmonary valve revealed mild insufficiency. IVC was normal sized with normal respiratory variation. There was no pericardial effuseion. Posterior pericardium was thickened. No sign for constriction was seen. Patient is a 74-year-old gentleman who presented with generalized weakness, reported hypotension and right-sided abdominal pain. Does have increased troponin which has been flat and somehow decreasing. Presentation is not considered acute coronary syndrome. Increased troponin is assessed to reflect demand physiology at this point. Does have baseline history of coronary artery disease and has had PCI in August 2024 and repeated cardiac catheterization was performed in October 2024. At this point, continuation of dual antiplatelet therapy (on aspirin/Plavix) is advised. Does have some abdominal pain and the imaging has revealed gallstones. Is it possible that a gallstone is the culprit for presentation? Patient has not been septic and there is no leukocytosis. Telemetry reveals episodes of ventricular tachycardia. Patient's beta mark was recently increased in the office but it is unknown if the patient has been compliant with it. Secondary to hypotension, Entresto had been held as outpatient. Imaging could not revealed the findings in the left kidney also. Has not been compliant with hemodialysis. CTA ruled out Pulmonary Emboli and revealed pneumonia. Has been evaluated by GI. Hypotension Ventricular tachycardia Acute on chronic systolic heart failure Ischemic cardiomyopathy Status post CABG Status post PCI End-stage renal disease on hemodialysis Noncompliant with hemodialysis Gallstones Increased D-dimer Pneumonia Cardiac suggestion for management: Manage on telemetry Follow-up electrolytes and kidney function tests and correct abnormalities Amiodarone: 200 mg p.o. b.i.d. Carvedilol: 12.5 mg p.o. b.i.d. Hold/stop Entresto at this point Continuation of aspirin/Plavix (81 mg/75 mg) is advised Awaiting interrogation of the ICD (Biotronik) GI follow up Further evaluation and management depends on the above and clinical course A total of 75 minutes was spent reviewing the patient record, examining the patient, making a diagnostic and therapeutic plan, discussing this plan with medical personnel, following up on diagnostic studies and following the patient for clinical stability excluding any and all procedures. At least 50% of this time was spent in direct, [id number] contact. Thank you for allowing me to participate in this patient's care. Further recommendations will depend on patient's clinical course. Please do not hesitate to contact me if you have any questions or concerns. This medical document was created using electronic medical record system with [employer] computerized dictation system. Although this document has been carefully reviewed, there may still be some phonetic and typographical errors. These areas are purely typographical due to the imperfection of the software programs, and do not reflect any compromise in the patient's medical care. Plan discussed with: Patient, Other (nurse) JOSE DONNELLY MD Feb 22, 2025 08:25
[2025-02-22] MEDS: SODIUM CHL 0.9% 1000 ML BAG XX ONE ×2 (10:24→15:30)
[2025-02-22] MEDS: IOHEXOL 350 MG/ML 100ML IJ ONE (10:24)
[2025-02-22] MEDS: CARVEDILOL 12.5 MG TAB PO SCH (11:00)
[2025-02-22 11:21] LABS: Hepatitis B Surface Antigen Negative (Negative)
[2025-02-22 11:22] LABS: Hepatitis C Antibody Positive (Negative)
--- NOTE | 2025-02-22 11:32 | DVHPN2 ---
Subjective Patient doing well, tolerating p.o., A&O times 3-4. Reviewed: Care Plan Changes from previous H/P or p: No Changes General: Per HPI Objective Vitals Vital Signs Date Time Temp Pulse Resp B/P (MAP) Pulse Ox O2 Delivery O2 Flow Rate FiO2 02/22/25 10:04 129/71 02/22/25 09:00 98.2 71 16 100 98.2 02/21/25 20:00 Nasal Cannula* 2 28 Intake/Output Intake and Output 02/22/25 07:00 Intake Total 650 ml Balance 650 ml Intake Oral 650 ml # Voids 3 Exam GEN: Healthy appearing, well-developed, NAD. HEENT: NC/AT; MMM. CV: RRR, no m/r/g. LUNGS: CTAB, no w/r/c. ABD: Soft, NT/ND, NBS, no masses or organomegaly. EXT: skin Warm, well perfused. no rashes. No clubbing, cyanosis, or edema. NEURO: Ambulating with no limitations. No focal deficits. Medications Current Medications Medications Dose Ordered Sig/Edson Route Start Time Stop Time Status Last Admin Dose Admin Sodium Chloride 10 ml Q8HR IV 02/20/25 22:00 02/22/25 05:30 10 ML Docusate Sodium 100 mg BIDPRN PRN PO 02/20/25 16:00 Acetaminophen 650 mg Q6HP PRN PO 02/20/25 16:00 Acetaminophen/ Hydrocodone Bitart 1 tab Q4HP PRN PO 02/20/25 16:00 Ondansetron HCl 4 mg Q4HP PRN IV 02/20/25 16:00 Nitroglycerin 0.4 mg Q5MINP PRN SL 02/20/25 16:00 Morphine Sulfate 2 mg Q30M PRN IV 02/20/25 16:00 Clopidogrel Bisulfate 75 mg DAILY PO 02/21/25 10:00 02/22/25 10:04 75 MG Furosemide 40 mg DAILY PO 02/21/25 10:00 02/22/25 10:04 40 MG Atorvastatin Calcium 40 mg HS PO 02/20/25 22:00 02/21/25 21:01 40 MG Aspirin 81 mg DAILY PO 02/21/25 10:00 02/22/25 10:04 81 MG Amiodarone HCl 200 mg Q12HR PO 02/21/25 10:00 8/18/25 10:04 200 MG Carvedilol 12.5 mg BID PO 02/22/25 10:00 Heparin Sodium (Porcine) 5,000 units DAILY SC 02/23/25 10:00 UNV Laboratory Results Laboratory Tests 02/22/25 05:36 Chemistry Test 02/21/25 13:32 02/22/25 05:36 Albumin 4.0 g/dL (3.2-4.8) 4.1 g/dL (3.2-4.8) Calcium Level 9.3 mg/dL (8.7-10.4) 9.4 mg/dL (8.7-10.4) Total Protein 6.7 g/dL (5.7-8.2) 6.9 g/dL (5.7-8.2) LFT Test 02/21/25 13:32 02/22/25 05:36 Alanine Aminotransferase (ALT) 46 U/L (7-40) H 48 U/L (7-40) H Alkaline Phosphatase 96 U/L (46-116) 89 U/L (46-116) Aspartate Amino Transferase (AST) 36 U/L (13-40) 42 U/L (13-40) H Total Bilirubin 0.2 mg/dL (0.2-1.0) 0.3 mg/dL (0.2-1.0) Urinalysis Test 02/20/25 22:58 Urine Color Light-yellow (Yellow) Urine Clarity Clear (Clear) Urine pH 7.5 (5.0-9.0) Urine Specific [place] 1.011 (1.001-1.035) Urine Protein 2+ (Negative) H Urine Ketones Negative (Negative) Urine Blood Negative /uL (Negative) Urine Nitrite Negative (Negative) Urine Bilirubin Negative (Negative) Urine Urobilinogen Normal mg/dL (Negative) Urine Leukocyte Esterase Trace /uL (Negative) Urine RBC 1 /hpf (0 - 3) Urine Microscopic WBC 9 /HPF (0-3) H Urine Squamous Epithelial Cells Few /hpf (<5) Urine Renal Epithelial Cells Few /hpf (None Seen) Urine Bacteria None seen /hpf (None Seen) Urine Hyaline Casts Few /lpf (0 - 2) Urine Glucose 2+ mg/dL (Normal) H Labs and/or images reviewed: Labs reviewed by me, Image(s) reviewed by me Assessment/Plan Assessment/Plan This is a 74 year old male presenting to the ED with chief complaint of dizziness/abdominal pain/hypotension. Patient reports that he has been hypotensive for the past week with a lower BP than usual, today reading 94/89. Patient relays that he has been experiencing weakness with associated dizziness, left sided abdominal pain, SOB, and sweats. Patient denies any chest pain, nausea, vomiting, or headache. Patient is a Cardiology yesterday and recommended to stopped taking Entresto and nitrates after episode of hypotension 70 to 80s on dialysis. Only the carvedilol 12.5 mg b.i.d.. 02/21: Patient doing well here for possible iatrogenic hypotension. Primary nurse quality is consulted and following closely. Patient with no further complaints. carrdiology recommends: Amiodarone: 200 mg p.o. b.i.d.. carvedilol: 12.5 mg p.o. b.i.d. , Hold/stop Entresto at this point , Continuation of aspirin/Plavix (81 mg/75 mg) is advised, Echocardiogram, Request for interrogation of the ICD (Biotronik), CT angio of the lungs is advised, CT scan with contrast of the abdomen is justified , Abdominal sonogram 02/22: CTA negative for PE, tele with a V-tach run. Cardiology waiting for pacemaker interrogation. Right upper quadrant ultrasound with gallstones, GI was consulted, this is asymptomatic cholelithiasis, no concern currently. Cardiac echo showing no significant changes EF 35-40% which is his normal. Cardiology is holding off Entresto. We will add PT today. Mostly waiting for device interrogation today. Diagnosis: Hypotension, iatrogenic, polypharmacy NSTEMI, Troponinemia, rule out type 1 Ventricular tachycardia systolic heart failure , chronic Ischemic cardiomyopathy Status post CABG Status post PCI End-stage renal disease on hemodialysis Noncompliant with hemodialysis Gallstones Increased D-dimer Plan: Tylenol, prn pain control Amiodarone 200 mg b.i.d. Aspirin 81 daily Lipitor 40 mg nightly Plavix 75 mg daily Lasix 40 mg daily On heparin drip Chest pain protocol Prn Zofran for nausea Cardiac diet Tele Full code Plan discussed with: Patient My Orders Orders - CHRISSIE THOMAS MD Procedure Category Date Status Time Pt Request For Service PT 02/22/25 Logged 11:07 Date of Service: Feb 22, 2025 Billing Provider: CHRISSIE THOMAS MD Common Visit Codes: [id number] INP/OBS CARE(HIGH) CHRISSIE THOMAS MD Feb 22, 2025 11:32
--- NOTE | 2025-02-22 17:32 | DVHPN2 ---
Progress Note - Dictate Date Seen: Feb 22, 2025 Medical Necessity Reason Pt with a Central, PICC or Fol: No Subjective no new symptoms vital signs Vital Sign Date Time Temp Pulse Resp B/P (MAP) Pulse Ox O2 Delivery O2 Flow Rate FiO2 02/22/25 16:39 97.6 82 16 123/59 (80) 99 97.6 02/22/25 08:00 Nasal Cannula* 2 28 Total Intake and Output 02/21/25 02/21/25 02/22/25 15:00 23:00 07:00 Intake Total 650 ml Balance 650 ml medications Current Medications Medications Dose Ordered Sig/Edson Route Start Time Stop Time Status Last Admin Dose Admin Sodium Chloride 10 ml Q8HR IV 02/20/25 22:00 02/22/25 14:00 10 ML Docusate Sodium 100 mg BIDPRN PRN PO 02/20/25 16:00 Acetaminophen 650 mg Q6HP PRN PO 02/20/25 16:00 Acetaminophen/ Hydrocodone Bitart 1 tab Q4HP PRN PO 02/20/25 16:00 Ondansetron HCl 4 mg Q4HP PRN IV 02/20/25 16:00 Nitroglycerin 0.4 mg Q5MINP PRN SL 02/20/25 16:00 Morphine Sulfate 2 mg Q30M PRN IV 02/20/25 16:00 Clopidogrel Bisulfate 75 mg DAILY PO 02/21/25 10:00 02/22/25 10:04 75 MG Furosemide 40 mg DAILY PO 02/21/25 10:00 02/22/25 10:04 40 MG Atorvastatin Calcium 40 mg HS PO 02/20/25 22:00 02/21/25 21:01 40 MG Aspirin 81 mg DAILY PO 02/21/25 10:00 02/22/25 10:04 81 MG Amiodarone HCl 200 mg Q12HR PO 02/21/25 10:00 02/22/25 10:04 200 MG Carvedilol 12.5 mg BID PO 02/22/25 10:00 02/22/25 14:45 12.5 MG Heparin Sodium (Porcine) 5,000 units DAILY SC 02/23/25 10:00 objective VITAL SIGNS: Blood pressure 131/60, heart rate 74, respirations 18, temperature 97.3. GENERAL: The patient is an elderly -Luxembourger gentleman who appears to be chronically ill in no acute distress. Alert and oriented x 3. HEENT: Shows pale oral mucosa and conjunctivae. NECK: There is no jugular venous distention. LUNGS: Show up crackles at the bases. CARDIOVASCULAR: Shows irregularly irregular rate with 1/6 systolic murmur. ABDOMEN: Soft, nontender. No organomegaly. No ascites. EXTREMITIES: Show no clubbing, cyanosis. There is no edema in the legs. NEUROLOGIC: Nonfocal. laboratory and microbiology Laboratory Tests 02/22/25 05:36 Test 02/22/25 05:36 Range/Units Serum Glucose 147 H 74-106 mg/dL Assessment/Plan ASSESSMENT AND PLAN: End-stage renal disease with very mild hyperkalemia. Mild pulmonary congestion. History of coronary artery disease with ischemic cardiomyopathy and cardiac arrhythmias. Anemia of renal disease. Hemoglobin is actually above target level. Controlled hypertension. Hyperkalemia, resolved Plan: HD today Continue HD on MWF schedule while in house fluid restriction no need for KRISTEN at this time Continue Coreg 12.5 mg PO BID Plan discussed with: Patient TRI LI MD Feb 22, 2025 17:32
--- NOTE | 2025-02-22 21:53 | DVHPN2 ---
Progress Note - Dictate Date Seen: Feb 22, 2025 Medical Necessity Reason Pt with a Central, PICC or Fol: No Subjective No new complaints Patient doing well, tolerating p.o. vital signs Vital Sign Date Time Temp Pulse Resp B/P (MAP) Pulse Ox O2 Delivery O2 Flow Rate FiO2 02/22/25 21:00 98.1 75 20 129/80 (96) 99 98.1 02/22/25 08:00 Nasal Cannula* 2 28 Total Intake and Output 02/21/25 02/21/25 02/22/25 15:00 23:00 07:00 Intake Total 650 ml Balance 650 ml medications Current Medications Medications Dose Ordered Sig/Edson Route Start Time Stop Time Status Last Admin Dose Admin Sodium Chloride 10 ml Q8HR IV 02/20/25 22:00 02/22/25 14:00 10 ML Docusate Sodium 100 mg BIDPRN PRN PO 02/20/25 16:00 Acetaminophen 650 mg Q6HP PRN PO 02/20/25 16:00 Acetaminophen/ Hydrocodone Bitart 1 tab Q4HP PRN PO 02/20/25 16:00 Ondansetron HCl 4 mg Q4HP PRN IV 02/20/25 16:00 Nitroglycerin 0.4 mg Q5MINP PRN SL 02/20/25 16:00 Morphine Sulfate 2 mg Q30M PRN IV 02/20/25 16:00 Clopidogrel Bisulfate 75 mg DAILY PO 02/21/25 10:00 02/22/25 10:04 75 MG Furosemide 40 mg DAILY PO 02/21/25 10:00 02/22/25 10:04 40 MG Atorvastatin Calcium 40 mg HS PO 02/20/25 22:00 02/21/25 21:01 40 MG Aspirin 81 mg DAILY PO 02/21/25 10:00 02/22/25 10:04 81 MG Amiodarone HCl 200 mg Q12HR PO 02/21/25 10:00 02/22/25 10:04 200 MG Carvedilol 12.5 mg BID PO 02/22/25 10:00 02/22/25 14:45 12.5 MG Heparin Sodium (Porcine) 5,000 units DAILY SC 02/23/25 10:00 objective GEN: Healthy appearing, well-developed, NAD. HEENT: NC/AT; MMM. CV: RRR, no m/r/g. LUNGS: CTAB, no w/r/c. ABD: Soft, NT/ND, NBS, no masses or organomegaly. EXT: skin Warm, well perfused. no rashes. No clubbing, cyanosis, or edema. NEURO: Ambulating with no limitations. No focal deficits. laboratory and microbiology Laboratory Tests 02/22/25 05:36 Test 02/22/25 05:36 Range/Units Serum Glucose 147 H 74-106 mg/dL Problems(with codes): (1) Gallstones (2) Symptomatic bradycardia (3) Generalized weakness (4) Elevated troponin (5) Fluid overload (6) Acute exacerbation of congestive heart failure (7) Non-STEMI (non-ST elevated myocardial infarction) (8) Renal failure Prognosis Plan Likely asymptomatic cholelithiasis with mild liver transminitis at this time possibly due to non-STEMI Continue conservative observation and management; patient is a poor surgical candidate I will trend the liver enzymes and abdominal pain Diet as tolerated If the alkaline phosphatase or bilirubin elevated then we can consider an MRCP, at this time there were normal Plan discussed with: Other (None) MAR SPARKS MD Feb 22, 2025 21:53
[2025-02-23] VITALS (9 sets, daily range): BP systolic 102–138; BP diastolic 59–86; PULSE 58–73; RESP 16–20; TEMP 36.7; O2SAT 96–100
[2025-02-23 06:57] LABS: Albumin 4.1 g/dL (3.2-4.8); Alkaline Phosphatase 93 U/L (46-116); Anion Gap 12 (5-15); BUN/Creatinine Ratio 4.6 (10.0-20.0); Bilirubin, Total 0.3 mg/dL (0.2-1.0); Calcium 9.8 mg/dL (8.7-10.4); Carbon Dioxide 28 mmol/L (20-31); Sodium 136 mmol/L (136-145); Total Protein 7.1 g/dL (5.7-8.2)
[2025-02-23 07:07] LABS: Alanine Aminotransferase 47 U/L (7-40); Blood Urea Nitrogen 36 mg/dL (9-23); Chloride 96 mmol/L (98-107); Glucose 124 mg/dL (74-106); Potassium 5.2 mmol/L (3.5-5.1)
[2025-02-23 07:08] LABS: Hematocrit 38.3 % (41.0-53.0); Hemoglobin 12.7 g/dL (13.5-17.5); Mean Corpuscular Hemoglobin 33.0 pg (28.0-32.0); Mean Corpuscular Volume 99.0 fL (80.0-100.0)
--- NOTE | 2025-02-23 07:15 | DVHPN2 ---
Progress Note - Dictate Date Seen: Feb 23, 2025 Medical Necessity Reason Pt with a Central, PICC or Fol: No vital signs Vital Sign Date Time Temp Pulse Resp B/P (MAP) Pulse Ox O2 Delivery O2 Flow Rate FiO2 02/23/25 05:00 97.9 66 18 123/71 (88) 96 97.9 02/22/25 20:00 Nasal Cannula* 2 28 Total Intake and Output 02/22/25 02/22/25 02/23/25 15:00 23:00 07:00 Intake Total 800 ml 850 ml Output Total 1400 ml Balance -600 ml 850 ml medications Current Medications Medications Dose Ordered Sig/Edson Route Start Time Stop Time Status Last Admin Dose Admin Sodium Chloride 10 ml Q8HR IV 02/20/25 22:00 02/23/25 06:11 10 ML Docusate Sodium 100 mg BIDPRN PRN PO 02/20/25 16:00 Acetaminophen 650 mg Q6HP PRN PO 02/20/25 16:00 Acetaminophen/ Hydrocodone Bitart 1 tab Q4HP PRN PO 02/20/25 16:00 Ondansetron HCl 4 mg Q4HP PRN IV 02/20/25 16:00 Nitroglycerin 0.4 mg Q5MINP PRN SL 02/20/25 16:00 Morphine Sulfate 2 mg Q30M PRN IV 02/20/25 16:00 Clopidogrel Bisulfate 75 mg DAILY PO 02/21/25 10:00 02/22/25 10:04 75 MG Furosemide 40 mg DAILY PO 02/21/25 10:00 02/22/25 10:04 40 MG Atorvastatin Calcium 40 mg HS PO 02/20/25 22:00 02/22/25 22:47 40 MG Aspirin 81 mg DAILY PO 02/21/25 10:00 02/22/25 10:04 81 MG Amiodarone HCl 200 mg Q12HR PO 02/21/25 10:00 02/22/25 22:45 200 MG Carvedilol 12.5 mg BID PO 02/22/25 10:00 02/22/25 22:46 12.5 MG Heparin Sodium (Porcine) 5,000 units DAILY SC 02/23/25 10:00 laboratory and microbiology Laboratory Tests 02/23/25 05:14 Test 02/23/25 05:14 Range/Units Serum Glucose 124 H 74-106 mg/dL Assessment/Plan Patient is a 74-year-old gentleman who presented with 1 week of dizziness and reported low blood pressure. He comes to our office for cardiology followups. He was recently in the office and Entresto was stopped secondary to low blood pressure. He was told to increase his carvedilol to 12 0.5 mg twice daily. Patient is not short at date increased dose of carvedilol has been given to him or not. He mentions that he does get right-sided abdominal discomforts for the past week. Cardiology is involved for cardiac aspects of care. Imaging has revealed gallstones. Does have baseline history of systolic heart failure and component of acute on chronic heart failure could also have contributed to the clinical picture. Missed his dialysis the day before presentation. Not in acute distress. Lying flat in bed. No JVD. Mucosa is pink and wet. No carotid bruit. Scattered rhonchi in the lungs is heard. No rales. Cardiac: Regular, no thrill. Systolic murmur 2/6 in the apex is heard. Abdomen is soft. There is no gross mass/hepatomegaly. Bowel sound is positive. Extremities do not reveal edema. Dorsalis pedis is 2+ bilateral Past medical history includes end-stage renal disease on hemodialysis, coronary artery disease and status post CABG and PCI, ischemic cardiomyopathy, systolic heart failure, status post right nephrectomy, COPD on home oxygen, hypertension, hyperlipidemia, diabetes mellitus, BPH, history of symptomatic V-tach and status post ICD (Biotronik) implantation. It is of note that patient's software engineering specialist was Dr. 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 Patient has had PCI previously. On September 01, 2024 patient had PCI of LAD (shockwave) by Dr. Cardona. Echocardiogram of October 30, 2024 (performed in [facility]) revealed ejection fraction of 35-40%, moderate /MR Left heart catheterization of October 23, 2024 revealed PHARMACEUTICAL REPRESENTATIVE of RCA and LCX. Patent stent in LAD. SVG to diagonal (small-vessel) was patent. Thomas to diagonal was patent with no disease. (Images reviewed and thomas may actually have been to ramus intermedius). There was no bypass to the RCA territory. WBC: 6.3 - 4.5 - 5.0 - 4.5 Hemoglobin: 13.1 - 12.1 - 12.4 - 12.7 D-dimer: 1.4 BNP: 1178.26 Creatinine: 9.81 - 11.83 - 8.26 - 7.80 Potassium: 5.1 - 5.4 - 5.0 - 5.2 Lactic acid: 1.2 Troponin (high sensitive): 225 - 225 - 181 Chest x-ray revealed: IMPRESSION: Interstitial pulmonary edema. CT of the abdomen and pelvis without contrast revealed: Abdomen/Pelvis: The pancreas, adrenal glands, and liver are grossly unremarkable. The prostate gland is moderately large, measuring 6.0 cm diameter. The bladder is not well distended and therefore not well evaluated. There are gallstones. The right kidney is surgically absent. Hypodense left renal lesion is incompletely characterized due to lack of IV contrast. Punctate splenic calcifications are most compatible prior granulomatous disease. The abdominal aorta is normal in course and caliber. There are moderate atherosclerotic calcifications. There is no free intraperitoneal air or fluid. There is no enlarged abdominal pelvic lymph node. There is diffuse gastric fold thickening. There is no small or large bowel wall thickening or dilatation. The appendix is normal. Other: The imaged lower thorax demonstrates [place] coronary artery and aortic valvular calcifications. There is a small left pleural effusion with atelectasis. There is a small fat containing left inguinal hernia.. No acute osseous abnormality is evident. Impression: Diffuse gastric fold thickening, which may represent gastritis or underdistention. Other possibilities are not excluded. Right nephrectomy. Cholelithiasis. Moderate prostatomegaly. CT of the head revealed: IMPRESSION: 1. No acute intracranial abnormality. CTA of lungs revealed: Enlargement of the main pulmonary artery measuring 4.3 cm. No filling defects within the main left right pulmonary arteries. Segmental and subsegmental branches are suboptimally opacified/characterized. Trachea patent. No pneumothorax. Left upper lobe lingular segment, left lower lobe consolidation, atelectasis. Right lower lobe atelectasis. Small left, Tiny right pleural effusions. Heart enlarged. Coronary artery calcification disease. Aortic atherosclerotic disease. No supraclavicular or axillary lymphadenopathy. Cholelithiasis. Splenic calcifications consistent with remote granulomatous disease. Gynecomastia. No aggressive osseous process. Median sternotomy wires. IMPRESSION: No evidence for large pulmonary embolism. Left upper lobe lingular segment, left lower lobe consolidation/atelectasis. Right lower lobe atelectasis. Small left and tiny right pleural effusions. Cardiomegaly, coronary artery calcification disease. Enlarged main pulmonary artery which can be seen with pulmonary artery hypertension. Cholelithiasis. Gynecomastia. Other findings as described Abdominal Ultrasound revealed: IMPRESSION: Cholelithiasis. Prominent common bile duct measuring 0.9 cm. Increased echogenicity of the left kidney can be seen in chronic medical renal disease. EKG reveals sinus rhythm, LVH with secondary ST-T changes Tele reveals sinus rhythm with occasions of ventricular tachycardia Echocardiogram revealed: Left Ventricle: Mild concentric left ventricular hypertrophy is seen. Left ventricle is mildly dilated. LVEF was at 35 - 40%. Local wall motion abmalities including proximal to mid inferior wall [place] and Myocardial thinning were seen. Compatible with ischemic cardiomyopathy and previous RCA/LCx Myocardial infarction. Right ventricle is dilated with preserved systolic function. Left Atrium is moderately dilated. Right Atrium was mildly dilated. Pacing wire was seen in right sided chambers. Aortic valve was trileaflet with calcified cusps and reduced opening. Up to moderate Aortic stenosis was considered. Peak / Mean pressure gradients across Aortic valve were only 14/7 mmHg. Calculated BETTY was 1.5 cm2. There was no Aortic Insufficiency. Mitral valve posterior leaflet was tethered secondary to local Myocardial thinning. It was also calcified. Secondary to this tethering, there was moderate to severe Mitral Regurgitation. There was no Mitral stenosis There was mild to moderate Tricuspid regurgitation. Right ventricular systolic pressure was assessed at 39 mmHg. Pulmonary valve revealed mild insufficiency. IVC was normal sized with normal respiratory variation. There was no pericardial effuseion. Posterior pericardium was thickened. No sign for constriction was seen. [employer] ICD interrogation: Battery: PHILIP; Remaining battery capacity: 100%; VDI: 50/---; Sensing amplitude: A 2.0/RV 24.2 mV; Pacing threshold: RV 0.7 volts; Pacing impedance: RV 518 Ohms; Shock impedance: RV 62 Ohms; Atrial burden: 0.0%; Pacing in ventricle: 0%; There were episodes of nonsustained V- tach; ATP treated V-tach: 8; No shocks delivered; Normal functioning ICD Patient is a 74-year-old gentleman who presented with generalized weakness, reported hypotension and right-sided abdominal pain. Does have increased troponin which has been flat and somehow decreasing. Presentation is not considered acute coronary syndrome. Increased troponin is assessed to reflect demand physiology at this point. Does have baseline history of coronary artery disease and has had PCI in August 2024 and repeated cardiac catheterization was performed in October 2024. At this point, continuation of dual antiplatelet therapy (on aspirin/Plavix) is advised. Does have some abdominal pain and the imaging has revealed gallstones. Is it possible that a gallstone is the culprit for presentation? Patient has not been septic and there is no leukocytosis. Telemetry reveals episodes of ventricular tachycardia. Patient's beta mark was recently increased in the office but it is unknown if the patient has been compliant with it. Secondary to hypotension, Entresto had been held as outpatient. Imaging could not revealed the findings in the left kidney also. Has not been compliant with hemodialysis. CTA ruled out Pulmonary Emboli and revealed pneumonia. Has been evaluated by GI. Hypotension Ventricular tachycardia Acute on chronic systolic heart failure Ischemic cardiomyopathy Status post CABG Status post PCI End-stage renal disease on hemodialysis Noncompliant with hemodialysis Gallstones Increased D-dimer Pneumonia Cardiac suggestion for management: Manage on telemetry Follow-up electrolytes and kidney function tests and correct abnormalities Amiodarone: 200 mg p.o. b.i.d. Carvedilol: 12.5 mg p.o. b.i.d. Hold/stop Entresto at this point Continuation of aspirin/Plavix (81 mg/75 mg) is advised Cardiac brothers is stable and can be followed as outpatient GI follow up for positive Hep C antibody Further evaluation and management depends on the above and clinical course A total of 75 minutes was spent reviewing the patient record, examining the patient, making a diagnostic and therapeutic plan, discussing this plan with medical personnel, following up on diagnostic studies and following the patient for clinical stability excluding any and all procedures. At least 50% of this time was spent in direct, [id number] contact. Thank you for allowing me to participate in this patient's care. Further recommendations will depend on patient's clinical course. Please do not hesitate to contact me if you have any questions or concerns. This medical document was created using electronic medical record system with [employer] dictation system. Although this document has been carefully reviewed, there may still be some phonetic and typographical errors. These areas are purely typographical due to the imperfection of the software programs, and do not reflect any compromise in the patient's medical care. Plan discussed with: Patient, Other (nurse) JOSE DONNELLY MD Feb 23, 2025 07:15
[2025-02-23 08:39] LABS: Total Cells Counted 100.0 (100)
--- NOTE | 2025-02-23 09:36 | DVHNC2 ---
Procedure - [employer] ICD interrogation: Battery: PHILIP Remaining battery capacity: 100% VDI: 50/--- Sensing amplitude: A 2.0/RV 24.2 mV Pacing threshold: RV 0.7 volts Pacing impedance: RV 518 Ohms Shock impedance: RV 62 Ohms Atrial burden: 0.0% Pacing in ventricle: 0% There were episodes of nonsustained V-tach ATP treated V-tach: 8 No shocks delivered Normal functioning ICD JOSE DONNELLY MD Feb 23, 2025 09:36
--- NOTE | 2025-02-23 10:11 | DVHPN2 ---
Subjective Patient doing well, tolerating p.o., A&O times 3-4. Reviewed: Care Plan Changes from previous H/P or p: No Changes General: Per HPI Objective Vitals Vital Signs Date Time Temp Pulse Resp B/P (MAP) Pulse Ox O2 Delivery O2 Flow Rate FiO2 02/23/25 08:00 Nasal Cannula* 2 28 02/23/25 05:00 97.9 66 18 123/71 (88) 96 97.9 Intake/Output Intake and Output 02/23/25 07:00 Intake Total 1650 ml Output Total 1400 ml Balance 250 ml Intake Oral 1650 ml Output Urine Total 1400 ml # Voids 2 Exam GEN: Healthy appearing, well-developed, NAD. HEENT: NC/AT; MMM. CV: RRR, no m/r/g. LUNGS: CTAB, no w/r/c. ABD: Soft, NT/ND, NBS, no masses or organomegaly. EXT: skin Warm, well perfused. no rashes. No clubbing, cyanosis, or edema. NEURO: Ambulating with no limitations. No focal deficits. Medications Current Medications Medications Dose Ordered Sig/Edson Route Start Time Stop Time Status Last Admin Dose Admin Sodium Chloride 10 ml Q8HR IV 02/20/25 22:00 02/23/25 06:11 10 ML Docusate Sodium 100 mg BIDPRN PRN PO 02/20/25 16:00 Acetaminophen 650 mg Q6HP PRN PO 02/20/25 16:00 Acetaminophen/ Hydrocodone Bitart 1 tab Q4HP PRN PO 02/20/25 16:00 Ondansetron HCl 4 mg Q4HP PRN IV 02/20/25 16:00 Nitroglycerin 0.4 mg Q5MINP PRN SL 02/20/25 16:00 Morphine Sulfate 2 mg Q30M PRN IV 02/20/25 16:00 Clopidogrel Bisulfate 75 mg DAILY PO 02/21/25 10:00 02/22/25 10:04 75 MG Furosemide 40 mg DAILY PO 02/21/25 10:00 02/22/25 10:04 40 MG Atorvastatin Calcium 40 mg HS PO 02/20/25 22:00 02/22/25 22:47 40 MG Aspirin 81 mg DAILY PO 02/21/25 10:00 02/22/25 10:04 81 MG Amiodarone HCl 200 mg Q12HR PO 02/21/25 10:00 02/22/25 22:45 200 MG Carvedilol 12.5 mg BID PO 02/22/25 10:00 02/22/25 22:46 12.5 MG Heparin Sodium (Porcine) 5,000 units DAILY SC 02/23/25 10:00 Laboratory Results Laboratory Tests 02/23/25 05:14 Chemistry Test 02/23/25 05:14 Albumin 4.1 g/dL (3.2-4.8) Calcium Level 9.8 mg/dL (8.7-10.4) Total Protein 7.1 g/dL (5.7-8.2) LFT Test 02/23/25 05:14 Alanine Aminotransferase (ALT) 47 U/L (7-40) H Alkaline Phosphatase 93 U/L (46-116) Aspartate Amino Transferase (AST) 38 U/L (13-40) Total Bilirubin 0.3 mg/dL (0.2-1.0) Urinalysis Test 02/20/25 22:58 Urine Color Light-yellow (Yellow) Urine Clarity Clear (Clear) Urine pH 7.5 (5.0-9.0) Urine Specific [place] 1.011 (1.001-1.035) Urine Protein 2+ (Negative) H Urine Ketones Negative (Negative) Urine Blood Negative /uL (Negative) Urine Nitrite Negative (Negative) Urine Bilirubin Negative (Negative) Urine Urobilinogen Normal mg/dL (Negative) Urine Leukocyte Esterase Trace /uL (Negative) Urine RBC 1 /hpf (0 - 3) Urine Microscopic WBC 9 /HPF (0-3) H Urine Squamous Epithelial Cells Few /hpf (<5) Urine Renal Epithelial Cells Few /hpf (None Seen) Urine Bacteria None seen /hpf (None Seen) Urine Hyaline Casts Few /lpf (0 - 2) Urine Glucose 2+ mg/dL (Normal) H Labs and/or images reviewed: Labs reviewed by me, Image(s) reviewed by me Assessment/Plan Assessment/Plan This is a 74 year old male presenting to the ED with chief complaint of dizziness/abdominal pain/hypotension. Patient reports that he has been hypotensive for the past week with a lower BP than usual, today reading 94/89. Patient relays that he has been experiencing weakness with associated dizziness, left sided abdominal pain, SOB, and sweats. Patient denies any chest pain, nausea, vomiting, or headache. Patient is a Cardiology yesterday and recommended to stopped taking Entresto and nitrates after episode of hypotension 70 to 80s on dialysis. Only the carvedilol 12.5 mg b.i.d.. 02/21: Patient doing well here for possible iatrogenic hypotension. Primary timber harvester operator is consulted and following closely. Patient with no further complaints. carrdiology recommends: Amiodarone: 200 mg p.o. b.i.d.. carvedilol: 12.5 mg p.o. b.i.d. , Hold/stop Entresto at this point , Continuation of aspirin/Plavix (81 mg/75 mg) is advised, Echocardiogram, Request for interrogation of the ICD ([place] [place]), CT angio of the lungs is advised, CT scan with contrast of the abdomen is justified , Abdominal sonogram 02/22: CTA negative for PE, tele with a V-tach run. Cardiology waiting for pacemaker interrogation. Right upper quadrant ultrasound with gallstones, GI was consulted, this is asymptomatic cholelithiasis, no concern currently. Cardiac echo showing no significant changes EF 35-40% which is his normal. Cardiology is holding off Entresto. We will add PT today. Mostly waiting for device interrogation today. 02/23: Device report is done, NSVT are being recorded. Waiting for cardiology follow up for recommendations, patient doing well. Diagnosis: Hypotension, iatrogenic, polypharmacy NSTEMI, Troponinemia, rule out type 1 Ventricular tachycardia systolic heart failure , chronic Ischemic cardiomyopathy Status post CABG Status post PCI End-stage renal disease on hemodialysis Noncompliant with hemodialysis Gallstones Increased D-dimer Plan: Tylenol, prn pain control Amiodarone 200 mg b.i.d. Aspirin 81 daily Lipitor 40 mg nightly Plavix 75 mg daily Lasix 40 mg daily On heparin drip Chest pain protocol Prn Zofran for nausea Cardiac diet Tele Full code Plan discussed with: Patient My Orders Orders - CHRISSIE THOMAS MD Procedure Category Date Status Time Pt Request For Service PT 02/22/25 Logged 11:07 Date of Service: Feb 23, 2025 Billing Provider: CHRISSIE THOMAS MD Common Visit Codes: [id number] INP/OBS CARE(HIGH) CHRISSIE THOMAS MD Feb 23, 2025 10:11
[2025-02-23] MEDS: HEPARIN SODIUM (PORCINE) 5000 UNITS/ML 1ML VIAL SC SCH (10:48)
--- NOTE | 2025-02-23 16:45 | DVHPN2 ---
Progress Note - Dictate Date Seen: Feb 23, 2025 Medical Necessity Reason Pt with a Central, PICC or Fol: No Subjective no new symptoms vital signs Vital Sign Date Time Temp Pulse Resp B/P (MAP) Pulse Ox O2 Delivery O2 Flow Rate FiO2 02/23/25 13:00 97.8 63 16 102/59 (73) 100 97.8 02/23/25 08:00 Nasal Cannula* 2 28 Total Intake and Output 02/22/25 02/22/25 02/23/25 15:00 23:00 07:00 Intake Total 800 ml 850 ml Output Total 1400 ml Balance -600 ml 850 ml medications Current Medications Medications Dose Ordered Sig/Edson Route Start Time Stop Time Status Last Admin Dose Admin Sodium Chloride 10 ml Q8HR IV 02/20/25 22:00 02/23/25 14:00 10 ML Docusate Sodium 100 mg BIDPRN PRN PO 02/20/25 16:00 Acetaminophen 650 mg Q6HP PRN PO 02/20/25 16:00 Acetaminophen/ Hydrocodone Bitart 1 tab Q4HP PRN PO 02/20/25 16:00 Ondansetron HCl 4 mg Q4HP PRN IV 02/20/25 16:00 Nitroglycerin 0.4 mg Q5MINP PRN SL 02/20/25 16:00 Morphine Sulfate 2 mg Q30M PRN IV 02/20/25 16:00 Clopidogrel Bisulfate 75 mg DAILY PO 02/21/25 10:00 02/23/25 10:41 75 MG Furosemide 40 mg DAILY PO 02/21/25 10:00 02/23/25 10:40 40 MG Atorvastatin Calcium 40 mg HS PO 02/20/25 22:00 02/22/25 22:47 40 MG Aspirin 81 mg DAILY PO 02/21/25 10:00 02/23/25 10:40 81 MG Amiodarone HCl 200 mg Q12HR PO 02/21/25 10:00 02/23/25 10:43 200 MG Carvedilol 12.5 mg BID PO 02/22/25 10:00 02/23/25 10:42 12.5 MG Heparin Sodium (Porcine) 5,000 units DAILY SC 02/23/25 10:00 02/23/25 10:48 5,000 UNITS objective VITAL SIGNS: Blood pressure 131/60, heart rate 74, respirations 18, temperature 97.3. GENERAL: The patient is an elderly -[place] gentleman who appears to be chronically ill in no acute distress. Alert and oriented x 3. HEENT: Shows pale oral mucosa and conjunctivae. NECK: There is no jugular venous distention. LUNGS: Show up crackles at the bases. CARDIOVASCULAR: Shows irregularly irregular rate with 1/6 systolic murmur. ABDOMEN: Soft, nontender. No organomegaly. No ascites. EXTREMITIES: Show no clubbing, cyanosis. There is no edema in the legs. NEUROLOGIC: Nonfocal. laboratory and microbiology Laboratory Tests 02/23/25 05:14 Test 02/23/25 05:14 Range/Units Serum Glucose 124 H 74-106 mg/dL Assessment/Plan ASSESSMENT AND PLAN: End-stage renal disease on HD Hyperkalemia, mild Mild pulmonary congestion. History of coronary artery disease with ischemic cardiomyopathy and cardiac arrhythmias. Anemia of renal disease. Controlled hypertension. Hyperkalemia, resolved Plan: s/p HD Saturday Next HD on Saturday Continue HD on MWF schedule while in house fluid restriction No need for KRISTEN at this time Continue Coreg 12.5 mg PO BID Lokelma 10 g PO x1 Plan discussed with: Patient TRI LI MD Feb 23, 2025 16:45
--- NOTE | 2025-02-23 16:52 | DVHPN2 ---
Progress Note - Dictate Date Seen: Feb 23, 2025 Medical Necessity Reason Pt with a Central, PICC or Fol: No Subjective No new complaints Patient doing well, tolerating p.o. renal diet No abdominal pain or biliary colic symptoms reported Elevation of ALT to 47 which is nonspecific Patient was dialyzed yesterday He is on amiodarone 200 mg p.o. twice a day vital signs Vital Sign Date Time Temp Pulse Resp B/P (MAP) Pulse Ox O2 Delivery O2 Flow Rate FiO2 02/23/25 13:00 97.8 63 16 102/59 (73) 100 97.8 02/23/25 08:00 Nasal Cannula* 2 28 Total Intake and Output 02/22/25 02/22/25 02/23/25 15:00 23:00 07:00 Intake Total 800 ml 850 ml Output Total 1400 ml Balance -600 ml 850 ml medications Current Medications Medications Dose Ordered Sig/Edson Route Start Time Stop Time Status Last Admin Dose Admin Sodium Chloride 10 ml Q8HR IV 02/20/25 22:00 02/23/25 14:00 10 ML Docusate Sodium 100 mg BIDPRN PRN PO 02/20/25 16:00 Acetaminophen 650 mg Q6HP PRN PO 02/20/25 16:00 Acetaminophen/ Hydrocodone Bitart 1 tab Q4HP PRN PO 02/20/25 16:00 Ondansetron HCl 4 mg Q4HP PRN IV 02/20/25 16:00 Nitroglycerin 0.4 mg Q5MINP PRN SL 02/20/25 16:00 Morphine Sulfate 2 mg Q30M PRN IV 02/20/25 16:00 Clopidogrel Bisulfate 75 mg DAILY PO 02/21/25 10:00 02/23/25 10:41 75 MG Furosemide 40 mg DAILY PO 02/21/25 10:00 02/23/25 10:40 40 MG Atorvastatin Calcium 40 mg HS PO 02/20/25 22:00 02/22/25 22:47 40 MG Aspirin 81 mg DAILY PO 02/21/25 10:00 02/23/25 10:40 81 MG Amiodarone HCl 200 mg Q12HR PO 02/21/25 10:00 02/23/25 10:43 200 MG Carvedilol 12.5 mg BID PO 02/22/25 10:00 02/23/25 10:42 12.5 MG Heparin Sodium (Porcine) 5,000 units DAILY SC 02/23/25 10:00 02/23/25 10:48 5,000 UNITS objective GEN: Healthy appearing, well-developed, NAD. HEENT: NC/AT; MMM. CV: RRR, no m/r/g. LUNGS: CTAB, no w/r/c. ABD: Soft, NT/ND, NBS, no masses or organomegaly. EXT: skin Warm, well perfused. no rashes. No clubbing, cyanosis, or edema. NEURO: Ambulating with no limitations. No focal deficits. laboratory and microbiology Laboratory Tests 02/23/25 05:14 Test 02/23/25 05:14 Range/Units Serum Glucose 124 H 74-106 mg/dL Problems(with codes): (1) Gallstones (2) Renal failure (3) Symptomatic bradycardia (4) Generalized weakness (5) Elevated troponin (6) Fluid overload (7) Acute exacerbation of congestive heart failure (8) Non-STEMI (non-ST elevated myocardial infarction) Prognosis Plan Patient is stable from GI point of view Outpatient follow up with me in 4-6 weeks or next available appointment Diet as tolerated Discharge planning as per hospitalist Plan discussed with: Other (nurse Viviane) MAR SPARKS MD Feb 23, 2025 16:52
[2025-02-23] MEDS ORDERED: MET25T PO (17:57)
--- NOTE | 2025-02-23 18:00 | DVHDS2 ---
Discharge Summary Date of Admission Feb 20, 2025 at 15:59 Date of Discharge: Feb 23, 2025 Labs/Diagnostic Data: Laboratory Results Test 02/23/25 05:14 02/22/25 05:36 02/21/25 13:32 02/20/25 22:58 White Blood Count 4.5 10^3/uL (4.4-10.8) Red Blood Count 3.87 10^6/uL (4.5-5.90) Hemoglobin 12.7 g/dL (13.5-17.5) Hematocrit 38.3 % (41.0-53.0) Mean Corpuscular Volume 99.0 fL (80.0-100.0) Mean Corpuscular Hemoglobin 33.0 pg (28.0-32.0) Mean Corpuscular Hemoglobin Concent 33.3 g/dL (32.0-36.0) Red Cell Distribution Width 16.0 % (11.8-14.3) Platelet Count 144 10^3/uL (140-450) Mean Platelet Volume 8.0 fL (6.9-10.8) Neutrophils (%) (Auto) % (37.0-80.0) Lymphocytes (%) (Auto) % (10.0-50.0) Monocytes (%) (Auto) % (0.0-12.0) Basophils (%) (Auto) % (0.0-2.0) Neutrophils # (Auto) 10 ^3/uL (1.6-8.6) Lymphocytes # (Auto) 10 ^3/uL (0.4-5.4) Monocytes # (Auto) 10 ^3/uL (0-1.3) Differential Total Cells Counted 100.0 (100) Neutrophils % (Manual) 61 (37.0-80.0) Band Neutrophils % (Manual) 1 Lymphocytes % (Manual) 18 (10.0-50.0) Monocytes % (Manual) 16 (0-12) Eosinophils % (Manual) 4 (0-7) Basophils % (Manual) 0 (0.0-2.0) Metamyelocytes % (manual) 0 Myelocytes % (Manual) 0 Promyelocytes % (Manual) 0 Blast Cells % (Manual) 0 Reactive Lymphocytes 0 Platelet Estimate Adequate Sodium Level 136 mmol/L (136-145) Potassium Level 5.2 mmol/L (3.5-5.1) Chloride Level 96 mmol/L (98-107) Carbon Dioxide Level 28 mmol/L (20-31) Anion Gap 12 (5-15) Blood Urea Nitrogen 36 mg/dL (9-23) Creatinine 7.80 mg/dL (0.700-1.30) Glomerular Filtration Rate Calc 7 mL/min (>90) BUN/Creatinine Ratio 4.6 (10.0-20.0) Serum Glucose 124 mg/dL (74-106) Calcium Level 9.8 mg/dL (8.7-10.4) Total Bilirubin 0.3 mg/dL (0.2-1.0) Aspartate Amino Transferase (AST) 38 U/L (13-40) Alanine Aminotransferase (ALT) 47 U/L (7-40) Alkaline Phosphatase 93 U/L (46-116) Total Protein 7.1 g/dL (5.7-8.2) Albumin 4.1 g/dL (3.2-4.8) Eosinophils (%) (Auto) 1.7 % (0.0-7.0) Eosinophils # (Auto) 0.1 10 ^3/uL (0-0.8) Basophils # (Auto) 0 10 ^3/uL (0-0.2) Nucleated Red Blood Cells 0.1 % Hepatitis A IgM Antibody Negative Hepatitis B Surface Antigen Negative (Negative) Hepatitis B Core IgM Antibody Negative (Negative) Hepatitis C Antibody Positive (Negative) Urine Color Light-yellow (Yellow) Urine Clarity Clear (Clear) Urine pH 7.5 (5.0-9.0) Urine Specific [place] 1.011 (1.001-1.035) Urine Protein 2+ (Negative) Urine Ketones Negative (Negative) Urine Blood Negative /uL (Negative) Urine Nitrite Negative (Negative) Urine Bilirubin Negative (Negative) Urine Urobilinogen Normal mg/dL (Negative) Urine Leukocyte Esterase Trace /uL (Negative) Urine RBC 1 /hpf (0 - 3) Urine Microscopic WBC 9 /HPF (0-3) Urine Squamous Epithelial Cells Few /hpf (<5) Urine Renal Epithelial Cells Few /hpf (None Seen) Urine Bacteria None seen /hpf (None Seen) Urine Hyaline Casts Few /lpf (0 - 2) Urine Glucose 2+ mg/dL (Normal) Test 02/20/25 14:40 02/20/25 11:05 Troponin I High Sensitivity 181 ng/L (</=54) Prothrombin Time 11.9 sec (9.3-11.8) Prothrombin Time INR 1.14 (0.9-1.15) Activated Partial Thromboplast Time 28.0 SEC (24.5-34.5) D-Dimer, Quantitative 1.40 mg/L FEU (0.0-0.49) Lactic Acid Level 1.2 mmol/L (0.4-2.0) Magnesium Level 3.0 mg/dL (1.6-2.6) B-Type Natriuretic Peptide 1178.26 pg/mL (0-100) Other Laboratory Tests 02/23/25 05:14 Brief Hx & Hospital Course: This is a 74 year old male presenting to the ED with chief complaint of dizziness/abdominal pain/hypotension. Patient reports that he has been hypotensive for the past week with a lower BP than usual, today reading 94/89. Patient relays that he has been experiencing weakness with associated dizziness, left sided abdominal pain, SOB, and sweats. Patient denies any chest pain, nausea, vomiting, or headache. Patient is a Cardiology yesterday and recommended to stopped taking Entresto and nitrates after episode of hypotension 70 to 80s on dialysis. Only the carvedilol 12.5 mg b.i.d.. 02/21: Patient doing well here for possible iatrogenic hypotension. Primary dishroom attendant is consulted and following closely. Patient with no further complaints. cardiology recommends: Amiodarone: 200 mg p.o. b.i.d.. carvedilol: 12.5 mg p.o. b.i.d. , Hold/stop Entresto at this point , Continuation of aspirin/Plavix (81 mg/75 mg) is advised, Echocardiogram, Request for interrogation of the ICD (Biotronik), CT angio of the lungs is advised, CT scan with contrast of the abdomen is justified , Abdominal sonogram 02/22: CTA negative for PE, tele with a V-tach run. Cardiology waiting for pacemaker interrogation. Right upper quadrant ultrasound with gallstones, GI was consulted, this is asymptomatic cholelithiasis, no concern currently. Cardiac echo showing no significant changes EF 35-40% which is his normal. Cardiology is holding off Entresto. We will add PT today. Mostly waiting for device interrogation today. 02/23: Device report is done, NSVT are being recorded. Waiting for cardiology follow up for recommendations, patient doing well. Cardiology reviewed case, cleared for discharge as per plan below. Stable for discharge as per plan below. Diagnosis: Hypotension, iatrogenic, polypharmacy NSTEMI, Troponinemia, rule out type 1 Ventricular tachycardia , nonsustained ventricular tachycardia asymptomatic bradycardia Gallstones, asymptomatic Hyperkalemia, resolved systolic heart failure , chronic Ischemic cardiomyopathy Status post CABG Status post PCI , on DAPT End-stage renal disease on hemodialysis MWF Increased D-dimer hypertension, controlled Anemia chronic disease Discharge plan: -continue Amiodarone 200 mg p.o. b.i.d. -continue coreg 12.5mg, 2x/day -stop Entresto -Continuation of aspirin/Plavix (81 mg/75 mg) - continue other home medications not mentioned above - follow up with Cardiology 1-2 weeks. Condition at Discharge: Fair Final Diagnosis/Problems List Hypotension, iatrogenic, polypharmacy NSTEMI, Troponinemia, rule out type 1 Ventricular tachycardia , nonsustained ventricular tachycardia asymptomatic bradycardia Gallstones, asymptomatic Hyperkalemia, resolved systolic heart failure , chronic Ischemic cardiomyopathy Status post CABG Status post PCI , on DAPT End-stage renal disease on hemodialysis MWF Increased D-dimer hypertension, controlled Anemia chronic disease Discharge Disposition: Home Discharge Instruct/Medications Diet: Cardiac 2g Na,low cholest Activity: No Restrictions, As Tolerated Follow Up/Referral: See below Medications: See below Scheduled Albuterol Sulfate (Albuterol Sulfate), 1.25 MG IN QIDP Aspirin (Aspirin Low Dose), 1 TAB PO DAILY, (Reported) Atorvastatin Calcium (Atorvastatin Calcium), 1 TAB PO DAILY, (Reported) Carvedilol (Coreg), 12.5 MG PO BID Cefpodoxime Proxetil (Cefpodoxime Proxetil), 1 TAB PO BID Clopidogrel Bisulfate (Clopidogrel), 1 TAB PO DAILY, (Reported) Ergocalciferol (Vitamin D), 1 CAP PO QWEEKLY, (Reported) Furosemide (Furosemide), 1 TAB PO DAILY, (Reported) Ipratropium [place] (Ipratropium [place]), 0.5 % HHN QIDP Isosorbide Mononitrate (Isosorbide Mononitrate Er), 1 TAB PO DAILY, (Reported) Magnesium Oxide (Magnesium Oxide), 1 TAB PO DAILY, (Reported) Magnesium Oxide (Magnesium Oxide), 1 TAB PO BID Meloxicam (Meloxicam), 1 TAB PO DAILY, (Reported) Nitroglycerin (Nitrostat), 1 TAB PO UD, (Reported) Omeprazole (Omeprazole Dr), 1 CAP PO DAILY, (Reported) Oxycodone HCl (Oxycodone Hydrochloride), 1 TAB PO QID, (Reported) Ranolazine (Ranolazine ER), 1 TAB PO BID, (Reported) Sacubitril-Valsartan (Entresto 24-26 mg), 1 TAB PO BID, (Reported) Sevelamer Carbonate (Renvela), 2 TAB PO TID, (Reported) Discharge Statement: "Patient was advised to return to the ER or call 911 if any headaches, dizziness, shortness of breath, chest pain, abdominal pain, bleeding, fevers, or worsening of medical condition. Patient was counseled about treatment plan, medications, possible side effects, patientverbalized understanding. All questions were answered to the best of my ability. This discharge took greater then 30 minutes in planning, reviewing documentation, counseling the patient, and discussing with other team members." Date of Service: Feb 23, 2025 Billing Provider: CHRISSIE THOMAS MD Common Visit Codes: 67875-PZW/OBS DISCH DAY >30min CHRISSIE THOMAS MD Feb 23, 2025 18:00
[2025-02-23] MEDS ORDERED: CARV-216 PO (18:07)
[2025-02-23] MEDS: SODIUM ZIRCONIUM CYCL 10 GM PAK PO ONE (18:18)
[2025-02-24] MEDS ORDERED: SODIUM CHL 0.9% 1000 ML BAG XX ONE (07:00)
--- NOTE | 2025-02-24 08:06 | ECG ---
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
--- NOTE | 2025-02-25 14:04 | ECG ---
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
== END 2025-02-23 21:07 | disposition home or self-care (01) | DRG 280 ==
LOC: ER 08:17 → OVERFLOW 15:59 → TELE-WESTW 17:14
PROVIDERS: ADMIT Student in an Organized Health Care Education/Training Program; ATTEND Student in an Organized Health Care Education/Training Program
PROC: 5A1D70Z Performance of Urinary Filtration, Intermittent, Less than 6 Hours Per Day (ICD-10-PCS; 2025-02-21)
PROC: 5A1D70Z Performance of Urinary Filtration, Intermittent, Less than 6 Hours Per Day (ICD-10-PCS; 2025-02-22)
PROC: 4B02XTZ Measurement of Cardiac Defibrillator, External Approach (ICD-10-PCS; principal; 2025-02-23)
DX: I95.2 Hypotension due to drugs (principal); N18.6 End stage renal disease; I21.4 Non-ST elevation (NSTEMI) myocardial infarction; I47.20 Ventricular tachycardia, unspecified; I13.2 Hypertensive heart and chronic kidney disease with heart failure and with stage 5 chronic kidney disease, or end stage renal disease; J44.0 Chronic obstructive pulmonary disease with (acute) lower respiratory infection; I50.22 Chronic systolic (congestive) heart failure; I25.5 Ischemic cardiomyopathy; E87.5 Hyperkalemia; I25.10 Atherosclerotic heart disease of native coronary artery without angina pectoris; K80.20 Calculus of gallbladder without cholecystitis without obstruction; I34.0 Nonrheumatic mitral (valve) insufficiency; N62 Hypertrophy of breast; I95.89 Other hypotension; T50.995A Adverse effect of other drugs, medicaments and biological substances, initial encounter; D63.1 Anemia in chronic kidney disease; E11.22 Type 2 diabetes mellitus with diabetic chronic kidney disease; E78.5 Hyperlipidemia, unspecified; N40.0 Benign prostatic hyperplasia without lower urinary tract symptoms; Z90.5 Acquired absence of kidney; Z95.810 Presence of automatic (implantable) cardiac defibrillator; Z79.82 Long term (current) use of aspirin; Z79.899 Other long term (current) drug therapy; Z99.81 Dependence on supplemental oxygen; Z99.2 Dependence on renal dialysis; Z98.61 Coronary angioplasty status; Z95.1 Presence of aortocoronary bypass graft; I25.2 Old myocardial infarction; Z79.02 Long term (current) use of antithrombotics/antiplatelets; Z87.891 Personal history of nicotine dependence; Z91.158 Patient's noncompliance with renal dialysis for other reason; Z79.2 Long term (current) use of antibiotics; Y92.89 Other specified places as the place of occurrence of the external cause
CPT/HCPCS: 36415; 70450; 71045; 71275; 74176; 76700; 80053; 80074; 81001; 83605; 83735; 83880; 84484; 85007; 85025; 85027; 85379; 85610; 85730; 90935; 93005; 93306; 96360; 97163; 99291; G0378

== ENCOUNTER 2025-03-14 12:29 | Inpatient (IN) | payer MEDICARE, MEDICAID ==
[~2025-03-14] VITALS: Ht 177.8 cm; Wt 71.3 kg
[~2025-03-14 12:29] MED LIST changes: +CARV-216 PO; -CEFP200T15 PO; -SACU1TAB PO
--- NOTE | 2025-03-14 13:11 | ED.PDOC ---
History of Present Illness HPI Comments 75-year-old male BIBA with prior medical history of CHF, ESRD, hypertension, COPD: Surgical history of fistula, pacemaker and a chief complaint of CHF exacerbation. EMS report and the patient being on 4 L at 95% at home, and being able to speak. EMS report that the patients nurse stated the patient has is breathing harder after going to his dialysis center on Saturday, missing his session. Patient currently using exacerbating muscles use. Denies chills, fever, N/V/D, CP. No other associated symptoms, modifiers, recent injuries or sick contacts present at this time. Chief Complaint: Shortness of Breath Time Seen by MD: 13:10 Primary Care Provider: UNKNOWN Reviewed Notes: Nurses Notes, Lathe Operator Notes, Medications, Allergies Allergies: Coded Allergies: NO KNOWN ALLERGIES (Unverified , 01/05/24) Home Meds Active Scripts Carvedilol (COREG) 12.5 Mg Tab, 12.5 MG PO BID for 30 Days, #60 TAB 0 Refills Prov:CHRISSIE THOMAS MD 02/23/25 Magnesium Oxide (MAGNESIUM OXIDE) 400 Mg Tab, 1 TAB PO BID, #60 TAB 1 Refill Prov:MAYNOR WEBB 01/06/25 Ipratropium [place] (Ipratropium [place]) 0.02 % Brittany, 0.5 % HHN QIDP for 30 Day s, #90 ML 3 Refills Prov:CRAIG NAZARIO MD 12/17/24 Albuterol Sulfate (Albuterol Sulfate) 1.25 Mg/3 Ml Neb, 1.25 MG IN QIDP for 30 Days, #90 INH 2 Refills Prov:CRAIG NAZARIO MD 12/17/24 Reported Medications Magnesium Oxide (Magnesium Oxide) 400 Mg Tab, 1 TAB PO DAILY for 90 Days, #90 10/29/24 Meloxicam (Meloxicam) 15 Mg Tab, 1 TAB PO DAILY for 30 Days, #30 10/29/24 Nitroglycerin (Nitrostat) 0.4 Mg Sub, 1 TAB PO UD for 33 Days, #100 10/29/24 Atorvastatin Calcium (ATORVASTATIN CALCIUM) 40 Mg Tab, 1 TAB PO DAILY for 90 Days, #90 10/29/24 Isosorbide Mononitrate (Isosorbide Mononitrate Er) 30 Mg Tab, 1 TAB PO DAILY for 90 Days, #90 10/29/24 Clopidogrel Bisulfate (CLOPIDOGREL) 75 Mg Tab, 1 TAB PO DAILY for 90 Days, #90 10/29/24 Ranolazine (Ranolazine ER) 500 Mg Tab, 1 TAB PO BID for 30 Days, #60 10/29/24 Furosemide (Furosemide) 40 Mg Tab, 1 TAB PO DAILY for 90 Days, #90 01/07/24 Ergocalciferol (Vitamin D) 50,000 Unit Cap, 1 CAP PO QWEEKLY 01/07/24 Omeprazole (Omeprazole Dr) 40 Mg Cap, 1 CAP PO DAILY for 90 Days, #90 01/07/24 Aspirin (Aspirin Low Dose) 81 Mg Chw, 1 TAB PO DAILY 01/07/24 Sevelamer Carbonate (Renvela) 800 Mg Tab, 2 TAB PO TID 01/07/24 Oxycodone HCl (Oxycodone Hydrochloride) 15 Mg Tab, 1 TAB PO QID for 30 Days, #120 01/07/24 Information Source: Emergency Med Personnel Mode of Arrival: EMS Severity: Moderate Timing: Came on: Suddenly Duration: Since onset Prehospital treatment: None Past Medical History PAST MEDICAL HISTORY: CHF, COPD, ESRD (Saturday, , Saturday) Surgical History: Pacemaker Surgical History (Other): Fistula Family History Family History: Reviewed,noncontributory to illness, Unknown Social History Smoker: Non-Smoker Alcohol: Denies ETOH Use Drugs: Denies Drug Use Lives In: Home Constitutional: denies: chills, diaphoresis, fatigue, fever, malaise, sweats, weakness, others EENTM: denies: blurred vision, double vision, ear bleeding, ear discharge, ear drainage, ear pain, ear ringing, eye pain, eye redness, hearing loss, mouth pain, mouth swelling, nasal discharge, nose bleeding, nose congestion, nose pain, photophobia, tearing, throat pain, throat swelling, voice changes, others Respiratory: reports: shortness of breath; denies: cough, hemoptysis, orthopnea, SOB at rest, SOB with excertion, stridor, wheezing, others Cardiovascular: denies: chest pain, dizzy spells, diaphoresis, Dyspnea on exertion, edema, irregular heart beat, left arm pain, lightheadedness, palpitations, PND, syncope, others Gastrointestinal: denies: abdomen distended, abdominal pain, blood streaked bowels, constipated, diarrhea, dysphagia, difficulty swallowing, hematemesis, melena, nausea, poor appetite, poor fluid intake, rectal bleeding, rectal pain, vomiting, others Genitourinary: denies: burning, dysuria, flank pain, frequency, hematuria, incontinence, penile discharge, penile sore, pain, testicle pain, testicle swelling, urgency, others Neurological: denies: dizziness, fainting, headache, left sided numbness, left sided weakness, numbness, paresthesia, pre-existing deficit, right sided numbness, right sided weakness, seizure, speech problems, tingling, tremors, weakness, others Musculoskeletal: denies: back pain, gout, joint pain, joint swelling, muscle pain, muscle stiffness, neck pain, others Integumetry: denies: bruises, change in color, change in hair/nails, dryness, laceration, lesions, lumps, rash, wounds, others Allergic/Immunocompromised: denies: Difficulty Healing, Frequent Infections, Hives, Itching, others Hematologic/Lymphatic: denies: anemia, blood clots, easy bleeding, easy bruising, swollen glands, others Endocrine: denies: excessive hunger, excessive sweating, excessive thirst, excessive urination, flushing, intolerance to cold, intolerance to heat, unexplained weight gain, unexplained weight loss, others Psychiatric: denies: anxiety, bipolar disorder, depression, hopeless, panic disorder, schizophrenia, sleepless, suicidal, others All Other Systems: Reviewed and Negative Physical Exam General Appearance: Normal, Severe Distress HEENT: Normal ENT Inspection, Pharynx Normal, TMs Normal Neck: Full Range of Motion, Non-Tender, Normal, Normal Inspection Respiratory: Accessory Muscle Use, Chest Non-Tender, Respiratory Distress Cardiovascular: No Edema, No JVD, No Murmur, No Gallop, Normal Peripheral Pulses, Regular Rate/Rhythm Breast Exam: Deferred Gastrointestinal: No Organomegaly, Non Tender, No Pulsatile Mass, Normal Bowel Sounds, Soft Genitalia: Deferred Pelvic: Deferred Rectal: Deferred Extremities: No calf tenderness, Normal capillary refill, Normal inspection, Normal range of motion, Non-tender, No pedal edema Musculoskeletal : Apperance: Normal Neurologic: Alert, custom furrier II-XII nml as Tested, No Motor Deficits, Normal Affect, Normal Mood, No Sensory Deficits Cerebellar Function: NOT DONE Reflexes: NOT DONE Skin: Dry, Normal Color, Warm Peripheral Pulses: 3+ Radial (R), 3+ Radial (L) Lymphatic: No Adenopathy Was a procedure done? Was a procedure done?: No Differential Dx Considerations may include: CHF Electrolyte imbalance X-Ray, Labs, Meds, VS Vital Signs Date Time Temp Pulse Resp B/P (MAP) Pulse Ox O2 Delivery O2 Flow Rate FiO2 03/14/25 14:13 38 91 Nasal Cannula* 4 36 03/14/25 13:44 158/80 03/14/25 13:30 97.8 98 35 158/80 (106) 95 97.8 03/14/25 13:30 95 Nasal Cannula* 4 36 03/14/25 12:40 98.6 90 24 198/91 96 98.6 Lab Test 03/14/25 14:27 03/14/25 14:15 03/14/25 13:32 Range/Units Troponin I High Sensitivity Pending 86 *H </=54 ng/L Blood Gas Specimen Type Arterial Blood Gas Sample Site Right radial Blood Gas Patient Temperature 37.0 Arterial Blood Date Drawn [id number] Arterial Blood pH 7.354 7.350-7.450 Arterial Blood Partial Pressure CO2 41.9 35.0-48.0 mmHg Arterial Blood Partial Pressure O2 69.6 L 83.0-108.0 mmHg Arterial Blood HCO3 22.8 21.0-28.0 mmol/L Arterial Blood Oxygen Saturation 91.8 L 94.0-98.0 % Arterial Blood Base Excess -2.6 L -2.0-3.0 mmol/L Arterial Blood Oxyhemoglobin 90.5 L 94.0-98.0 % Arterial Blood Carboxyhemoglobin 1.0 0.5-1.5 % Arterial Blood Methemoglobin 0.4 0.0-1.5 % Max Test Yes Blood Gas Total Hemoglobin 14.10 13.5-17.5 g/dL Blood Gas Liter Flow 4.00 Blood Gas Modality Nasal cannula FiO2 % 36.0 White Blood Count 11.6 H 4.4-10.8 10^3/uL Red Blood Count 4.27 L 4.5-5.90 10^6/uL Hemoglobin 13.8 13.5-17.5 g/dL Hematocrit 40.7 L 41.0-53.0 % Mean Corpuscular Volume 95.3 80.0-100.0 fL Mean Corpuscular Hemoglobin 32.3 H 28.0-32.0 pg Mean Corpuscular Hemoglobin Concent 33.9 32.0-36.0 g/dL Red Cell Distribution Width 16.0 H 11.8-14.3 % Platelet Count 187 140-450 10^3/uL Mean Platelet Volume 7.4 6.9-10.8 fL Neutrophils (%) (Auto) 78.2 37.0-80.0 % Lymphocytes (%) (Auto) 9.2 L 10.0-50.0 % Monocytes (%) (Auto) 10.6 0.0-12.0 % Eosinophils (%) (Auto) 1.4 0.0-7.0 % Basophils (%) (Auto) 0.6 0.0-2.0 % Neutrophils # (Auto) 9.1 H 1.6-8.6 10 ^3/uL Lymphocytes # (Auto) 1.1 0.4-5.4 10 ^3/uL Monocytes # (Auto) 1.2 0-1.3 10 ^3/uL Eosinophils # (Auto) 0.2 0-0.8 10 ^3/uL Basophils # (Auto) 0.1 0-0.2 10 ^3/uL Nucleated Red Blood Cells 0.1 % Sodium Level 130 L 136-145 mmol/L Potassium Level 6.0 *H 3.5-5.1 mmol/L Chloride Level 90 L 98-107 mmol/L Carbon Dioxide Level 22 20-31 mmol/L Anion Gap 18 H 5-15 Blood Urea Nitrogen 65 H 9-23 mg/dL Creatinine 10.51 *H 0.700-1.30 mg/dL Glomerular Filtration Rate Calc 5 >90 mL/min BUN/Creatinine Ratio 6.2 L 10.0-20.0 Serum Glucose 102 74-106 mg/dL Calcium Level 10.2 8.7-10.4 mg/dL Total Bilirubin 0.5 0.2-1.0 mg/dL Aspartate Amino Transferase (AST) 69 H 13-40 U/L Alanine Aminotransferase (ALT) 79 H 7-40 U/L Alkaline Phosphatase 109 46-116 U/L B-Type Natriuretic Peptide Pending Total Protein 7.9 5.7-8.2 g/dL Albumin 4.2 3.2-4.8 g/dL Current Medications Medications (Trade) Dose Ordered Sig/Edson Route Start Time Stop Time Status Last Admin Furosemide (Lasix Injection) 40 mg ONCE ONCE IV 03/14/25 13:00 03/14/25 13:01 DC 03/14/25 13:44 Magnesium Sulfate/ Dextrose 100 ml @ 100 mls/hr ONCE ONCE IV 03/14/25 13:00 03/14/25 13:59 DC 03/14/25 13:43 Methylprednisolone Sodium Succinate (Solu Medrol) 125 mg ONCE ONCE IV 03/14/25 13:00 03/14/25 13:01 DC 03/14/25 13:43 Albuterol (Ventolin Medneb) 5 mg ONCE ONCE NEB 03/14/25 14:00 03/14/25 14:01 DC 03/14/25 14:13 Ipratropium [place] (Atrovent Medneb) 0.5 mg ONCE ONCE NEB 03/14/25 14:00 03/14/25 14:01 DC 03/14/25 14:13 Patient alert. Placed on oxygen. Using accessory muscles. Chronic kidney disease. He is on dialysis. Nephrology consultation. Hyperkalemia. Started treatment. WBC slightly elevated. Was given Lasix. Continues to have shortness a breath. Was given magnesium. Was given breathing treatment. Was given steroid. Reviewed his history. Explained to the patient. Continue monitoring. Time of 1ST Reevaluation: 13:40 Reevaluation 1ST: Unchanged Patient Education/Counseling: Diagnosis, Treatment, Prognosis Family Education/Counseling: No Family Present SEPSIS Sepsis Screen Physician Orders B-Type Natriuretic Peptide (03/14/25 12:49) Chest Portable (03/14/25 12:49) Urinalysis (03/14/25 12:49) Troponin-I Hs (03/14/25 13:49) Troponin-I Hs (03/14/25 15:49) Abg W/ Co-Ox (03/14/25 13:49) BIPAP (03/14/25 14:25) Abg W/ Co-Ox (03/14/25 15:30) Potassium (03/14/25 18:39) Insulin R 10units Iv X One (03/14/25 14:45) Dextrose 50% 1amp=50ml (03/14/25 14:45) Albuterol 20mg Medneb X One (03/14/25 14:45) Sod Bicarb 50ml=1amp (03/14/25 14:45) Lasix 20mg Iv X One (03/14/25 14:45) Calcium Gluc 1 Amp Ivpb (03/14/25 14:45) Lokelma 10gm Po X One (03/14/25 14:45) Vital Signs Date Time Temp Pulse Resp B/P (MAP) Pulse Ox O2 Delivery O2 Flow Rate FiO2 03/14/25 14:13 38 91 Nasal Cannula* 4 36 03/14/25 13:44 158/80 03/14/25 13:30 97.8 98 35 158/80 (106) 95 97.8 03/14/25 13:30 95 Nasal Cannula* 4 36 03/14/25 12:40 98.6 90 24 198/91 96 98.6 Laboratory Tests Test 03/14/25 13:32 White Blood Count 11.6 10^3/uL (4.4-10.8) H Medications Medications Dose Ordered Sig/Edson Route Start Time Stop Time Status Last Admin Dose Admin Albuterol 5 mg ONCE ONCE NEB 03/14/25 14:00 03/14/25 14:01 DC 03/14/25 14:13 Furosemide 40 mg ONCE ONCE IV 03/14/25 13:00 03/14/25 13:01 DC 03/14/25 13:44 Ipratropium [place] 0.5 mg ONCE ONCE NEB 03/14/25 14:00 03/14/25 14:01 DC 03/14/25 14:13 Magnesium Sulfate/ Dextrose 100 ml @ 100 mls/hr ONCE ONCE IV 03/14/25 13:00 03/14/25 13:59 DC 03/14/25 13:43 Methylprednisolone Sodium Succinate 125 mg ONCE ONCE IV 03/14/25 13:00 03/14/25 13:01 DC 03/14/25 13:43 Departure 1 Departure Time of Disposition: 14:43 Impression: Primary Impression: CHF (congestive heart failure) Qualified Codes: I50.43 - Acute on chronic combined systolic (congestive) and diastolic (congestive) heart failure Additional Impressions: End-stage renal disease on hemodialysis Hyperkalemia Disposition: ADMITTED INPATIENT Admit to: ICU Condition: Guarded Critical Care Note Critical Care Time?: Yes (90 min-critical care time only) Stability Stability form required: No Heart Score Heart Score: Heart Score Response (Comments) Value History Slightly Suspicious 0 EKG Normal 0 Age >65 2 Risk Factors >3 or Hx ASHD 2 Troponin Normal limit 0 Total 4 I personally scribed for BRITTNEY YEUNG MD ([email or web address]) on 03/14/25 at 13:11. Electronically submitted by Angel Luis Garcia ([email or web address]). BRITTNEY YEUNG MD Mar 14, 2025 13:11
[2025-03-14 13:30] VITALS: O2SAT 95
[2025-03-14] MEDS: MAGNESIUM SULFATE 1GM/100ML 100 ML IV ONE (13:43)
[2025-03-14] MEDS: methylPREDNISolone SOD SUCC 125 MG/2 ML VL IV ONE (13:43)
[2025-03-14] MEDS: FUROSEMIDE 40 MG/4 ML VIAL IV ONE (13:44)
[2025-03-14 13:45] LABS: Hematocrit 40.7 % (41.0-53.0); Hemoglobin 13.8 g/dL (13.5-17.5); Mean Corpuscular Hemoglobin 32.3 pg (28.0-32.0); Mean Corpuscular Volume 95.3 fL (80.0-100.0); Nucleated Red Blood Cells % 0.1 %
--- NOTE | 2025-03-14 14:09 | DVH ---
CHEST RADIOGRAPH Indication: sob Technique: Single frontal view of the chest was obtained Comparison: XY CHEST PORTABLE on DOS: 02/20/25, XY CHEST PORTABLE on DOS: 01/04/25, XY CHEST PORTABLE o n DOS: 12/15/24 FINDINGS: Lines and Tubes: None. Right-sided approach single lead AICD terminating within right ventricle. Lungs: Interstitial and alveolar type opacities of bilateral to lower lung zones. Minimal blunting of the left costophrenic angle. No pneumothorax. Cardiomediastinal contours: Borderline cardiomegaly. Midline sternotomy wires surgical clips are not ed consistent with prior history of CABG. Vascular stent is noted over the left axilla. Bones: No acute osseous abnormality. IMPRESSION: Interstitial and alveolar type opacities of bilateral mid to lower lung zones which may represent pne umonia in the right clinical setting. Trace left-sided pleural effusion.
[2025-03-14] MEDS: IPRATROPIUM BROM 0.5 MG/2.5ML INH SOL NEB ONE (14:13)
[2025-03-14] MEDS: ALBUTEROL SULF 2.5 MG/0.5ML(0.5%) NEB SOLN NEB ONE ×3 (14:13→21:01)
[2025-03-14 14:14] LABS: Albumin 4.2 g/dL (3.2-4.8); Alkaline Phosphatase 109 U/L (46-116); Anion Gap 18 (5-15); BUN/Creatinine Ratio 6.2 (10.0-20.0); Bilirubin, Total 0.5 mg/dL (0.2-1.0); Calcium 10.2 mg/dL (8.7-10.4); Carbon Dioxide 22 mmol/L (20-31); Glucose 102 mg/dL (74-106); Total Protein 7.9 g/dL (5.7-8.2)
[2025-03-14 14:16] LABS: Sodium 130 mmol/L (136-145)
[2025-03-14 14:17] LABS: Alanine Aminotransferase 79 U/L (7-40); Blood Urea Nitrogen 65 mg/dL (9-23); Chloride 90 mmol/L (98-107); Potassium 6.0 mmol/L (3.5-5.1)
[2025-03-14 14:21] LABS: Base Excess -2.6 mmol/L (-2.0-3.0)
[2025-03-14] MEDS: CALCIUM GLUC 1,000mg/50ml-NS 50 ML IV ONE ×2 (14:51→20:41)
[2025-03-14] MEDS: SODIUM ZIRCONIUM CYCL 10 GM PAK PO ONE ×2 (14:51→20:41)
[2025-03-14] MEDS: DEXTROSE (50%) 50ML SYRG IV ONE ×2 (14:51→20:41)
[2025-03-14] MEDS: SODIUM BICARB 8.4% 50Meq/50ml SYR INJ IV ONE (14:51)
[2025-03-14] MEDS: FUROSEMIDE 20 MG/2 ML VIAL IV ONE (14:52)
[2025-03-14] MEDS: InsuLIN REG 1unit/0.01ml Soln (100units/ml) IV ONE ×2 (14:53→20:41)
[2025-03-14 16:24] LABS: Base Excess 1.6 mmol/L (-2.0-3.0)
--- NOTE | 2025-03-14 17:10 | DVHINCON2 ---
Date of service: Mar 14, 2025 Referring Physician Reason for Consultation End-stage kidney disease, hyperkalemia History of Present Illness This is a 75-year-old male with history of end-stage kidney disease presenting to the emergency room because of shortness of breath. As per the history obtained from the patient his dialysis days are Saturday. Patient went for his dialysis on Saturday instead of Saturday. Ultrafiltration was minimal. Developed shortness of breath today and hence presented to the emergency room. Noted to be hypoxic and placed on BiPAP. Also noted to be with a potassium of five and medical management has been done for the same. Past Medical History End-stage kidney disease on hemodialysis Coronary artery disease Hypertension Type 2 diabetes Congestive heart failure COPD Past Surgical History Status post CABG Dialysis access Family History: FH: cancer G8 MOTHER FH: heart disease G8 FATHER Family History Noncontributory Social History No active history of smoking, alcohol or drug abuse Allergies: Coded Allergies: NO KNOWN ALLERGIES (Unverified , 01/05/24) Home Meds Active Scripts Carvedilol (COREG) 12.5 Mg Tab, 12.5 MG PO BID for 30 Days, #60 TAB 0 Refills Prov:CHRISSIE THOMAS MD 02/23/25 Magnesium Oxide (MAGNESIUM OXIDE) 400 Mg Tab, 1 TAB PO BID, #60 TAB 1 Refill Prov:MAYNOR WEBB 01/06/25 Ipratropium [place] (Ipratropium [place]) 0.02 % Brittany, 0.5 % HHN QIDP for 30 Days, #90 ML 3 Refills Prov:CRIAG NAZARIO MD 12/17/24 Albuterol Sulfate (Albuterol Sulfate) 1.25 Mg/3 Ml Neb, 1.25 MG IN QIDP for 30 Days, #90 INH 2 Refills Prov:CRAIG NAZARIO MD 12/17/24 Reported Medications Magnesium Oxide (Magnesium Oxide) 400 Mg Tab, 1 TAB PO DAILY for 90 Days, #90 10/29/24 Meloxicam (Meloxicam) 15 Mg Tab, 1 TAB PO DAILY for 30 Days, #30 10/29/24 Nitroglycerin (Nitrostat) 0.4 Mg Sub, 1 TAB PO UD for 33 Days, #100 10/29/24 Atorvastatin Calcium (ATORVASTATIN CALCIUM) 40 Mg Tab, 1 TAB PO DAILY for 90 Days, #90 10/29/24 Isosorbide Mononitrate (Isosorbide Mononitrate Er) 30 Mg Tab, 1 TAB PO DAILY for 90 Days, #90 10/29/24 Clopidogrel Bisulfate (CLOPIDOGREL) 75 Mg Tab, 1 TAB PO DAILY for 90 Days, #90 10/29/24 Ranolazine (Ranolazine ER) 500 Mg Tab, 1 TAB PO BID for 30 Days, #60 10/29/24 Furosemide (Furosemide) 40 Mg Tab, 1 TAB PO DAILY for 90 Days, #90 01/07/24 Ergocalciferol (Vitamin D) 50,000 Unit Cap, 1 CAP PO QWEEKLY 01/07/24 Omeprazole (Omeprazole Dr) 40 Mg Cap, 1 CAP PO DAILY for 90 Days, #90 01/07/24 Aspirin (Aspirin Low Dose) 81 Mg Chw, 1 TAB PO DAILY 01/07/24 Sevelamer Carbonate (Renvela) 800 Mg Tab, 2 TAB PO TID 01/07/24 Oxycodone HCl (Oxycodone Hydrochloride) 15 Mg Tab, 1 TAB PO QID for 30 Days, #120 01/07/24 Review of Systems 12 point review of system negative except as stated in the HPI Vital Signs Vital Signs Date Time Temp Pulse Resp B/P (MAP) Pulse Ox O2 Delivery O2 Flow Rate FiO2 03/14/25 16:23 89 03/14/25 16:13 149/80 Facial BiPAP Mask 35 03/14/25 15:30 21 97 03/14/25 14:13 4 03/14/25 13:30 97.8 97.8 Physical Exam Patient is on BiPAP. HEENT: Normocephalic, no JVD Lungs: Bilateral rhonchi CVS: S1, S2 regular rate rhythm Abdomen: Soft, bowel sounds present F[employer] PRESIDENT: No focal deficits Labs/Diagnostic Data Labs Test 03/14/25 16:15 03/14/25 14:45 03/14/25 14:27 03/14/25 14:15 Range/Units Blood Gas Specimen Type Arterial Blood Gas Sample Site Right radial Blood Gas Patient Temperature 37.0 Arterial Blood Date Drawn [id number] Arterial Blood pH 7.438 7.350-7.450 Arterial Blood Partial Pressure CO2 38.9 35.0-48.0 mmHg Arterial Blood Partial Pressure O2 81.2 L 83.0-108.0 mmHg Arterial Blood HCO3 25.7 21.0-28.0 mmol/L Arterial Blood Oxygen Saturation 94.9 94.0-98.0 % Arterial Blood Base Excess 1.6 -2.0-3.0 mmol/L Arterial Blood Oxyhemoglobin 93.9 L 94.0-98.0 % Arterial Blood Carboxyhemoglobin 0.8 0.5-1.5 % Arterial Blood Methemoglobin 0.3 0.0-1.5 % Max Test Yes Blood Gas Total Hemoglobin 13.40 L 13.5-17.5 g/dL Blood Gas Modality Mask - bipap FiO2 % 35.0 Blood Gas EPAP 5 Blood Gas IPAP 12 POC Glucose 130 H 70-106 mg/dl Troponin I High Sensitivity 109 *H </=54 ng/L Blood Gas Liter Flow 4.00 Test 03/14/25 13:32 Range/Units White Blood Count 11.6 H 4.4-10.8 10^3/uL Red Blood Count 4.27 L 4.5-5.90 10^6/uL Hemoglobin 13.8 13.5-17.5 g/dL Hematocrit 40.7 L 41.0-53.0 % Mean Corpuscular Volume 95.3 80.0-100.0 fL Mean Corpuscular Hemoglobin 32.3 H 28.0-32.0 pg Mean Corpuscular Hemoglobin Concent 33.9 32.0-36.0 g/dL Red Cell Distribution Width 16.0 H 11.8-14.3 % Platelet Count 187 140-450 10^3/uL Mean Platelet Volume 7.4 6.9-10.8 fL Neutrophils (%) (Auto) 78.2 37.0-80.0 % Lymphocytes (%) (Auto) 9.2 L 10.0-50.0 % Monocytes (%) (Auto) 10.6 0.0-12.0 % Eosinophils (%) (Auto) 1.4 0.0-7.0 % Basophils (%) (Auto) 0.6 0.0-2.0 % Neutrophils # (Auto) 9.1 H 1.6-8.6 10 ^3/uL Lymphocytes # (Auto) 1.1 0.4-5.4 10 ^3/uL Monocytes # (Auto) 1.2 0-1.3 10 ^3/uL Eosinophils # (Auto) 0.2 0-0.8 10 ^3/uL Basophils # (Auto) 0.1 0-0.2 10 ^3/uL Nucleated Red Blood Cells 0.1 % Sodium Level 130 L 136-145 mmol/L Potassium Level 6.0 *H 3.5-5.1 mmol/L Chloride Level 90 L 98-107 mmol/L Carbon Dioxide Level 22 20-31 mmol/L Anion Gap 18 H 5-15 Blood Urea Nitrogen 65 H 9-23 mg/dL Creatinine 10.51 *H 0.700-1.30 mg/dL Glomerular Filtration Rate Calc 5 >90 mL/min BUN/Creatinine Ratio 6.2 L 10.0-20.0 Serum Glucose 102 74-106 mg/dL Calcium Level 10.2 8.7-10.4 mg/dL Total Bilirubin 0.5 0.2-1.0 mg/dL Aspartate Amino Transferase (AST) 69 H 13-40 U/L Alanine Aminotransferase (ALT) 79 H 7-40 U/L Alkaline Phosphatase 109 46-116 U/L Total Protein 7.9 5.7-8.2 g/dL Albumin 4.2 3.2-4.8 g/dL Assessment End-stage kidney disease on hemodialysis Acute on chronic hypoxic respiratory failure Fluid overload Hyperkalemia Elevated troponins History of coronary artery disease status post CABG Hypertension Plan/Recommendation Medical management of hyperkalemia Patient will be dialyzed tomorrow a.m as the 1st case Continue with BiPAP support. Patient and have been updated Plan discussed with: Patient, Spouse SHAREE KHANNA MD Mar 14, 2025 17:10
[2025-03-14 17:56] VITALS: BP 159/90; PULSE 88; O2SAT 100
[2025-03-14] MEDS ORDERED: NITROGLYCERIN 0.4 MG SL TAB SL PRN (19:45)
[2025-03-14] MEDS ORDERED: ACETAMINOPHEN 325 MG TAB PO PRN (19:45)
[2025-03-14] MEDS ORDERED: MORPHINE SULFATE INJ 2 MG/ml SYRG IV PRN (19:45)
[2025-03-14] MEDS ORDERED: ONDANSETRON HCL 4 MG/2 ML VIAL IV PRN (19:45)
[2025-03-14] MEDS ORDERED: ALBUTEROL SULF 2.5 MG/0.5ML(0.5%) NEB SOLN NEB PRN (19:45)
[2025-03-14] MEDS: CLOPIDOGREL BISULFATE 75 MG TAB PO ONE (20:00)
[2025-03-14] MEDS: CARVEDILOL 12.5 MG TAB PO SCH (20:00)
[2025-03-14 20:08] VITALS: BP 147/78; PULSE 85; O2SAT 100
[2025-03-14] MEDS: ENOXAPARIN SOD 100 MG/1 ML SYRINGE SC ONE (20:41)
[2025-03-14] MEDS: SODIUM BICARB 8.4% 50Meq/50ml SYR Vial IV ONE (20:41)
[2025-03-14 21:01] VITALS: PULSE 97; RESP 18; RESP 24; O2SAT 99
[2025-03-14 21:11] VITALS: PULSE 95; RESP 22; O2SAT 99
[2025-03-14 22:00] VITALS: BP 150/73; PULSE 88; RESP 22; TEMP 97.6; O2SAT 99
[2025-03-14] MEDS: ATORVASTATIN 20 MG TAB PO SCH (22:14)
[2025-03-14] MEDS: RANOLAZINE ER 500 MG TAB PO SCH (22:14)
[2025-03-15] VITALS (7 sets, daily range): BP systolic 102; BP diastolic 60; PULSE 84–94; RESP 18–20; TEMP 97.6; O2SAT 95–100
[2025-03-15 04:11] LABS: Hematocrit 39.0 % (41.0-53.0); Hemoglobin 13.6 g/dL (13.5-17.5); Mean Corpuscular Hemoglobin 34.4 pg (28.0-32.0); Mean Corpuscular Volume 98.8 fL (80.0-100.0); Nucleated Red Blood Cells % 0.1 %
--- NOTE | 2025-03-15 04:37 | DVHHP2 ---
History of Present Illness Reason for Visit: Shortness for breath History of Present Illness 75-year-old male presents for evaluation of shortness for breath. Patient presents with a one day history of worsening shortness for breath with a nonproductive cough currently on BiPAP. Patient reports missing one session of his dialysis last week due to shortness for breath. Denies any chest pain at the moment. No other acute complaints. Past Medical History COPD, end-stage renal disease, CHF, hypertension Past Surgical History Pacemaker, dialysis access Family History Noncontributory Smoke: No ALCOHOL: none Drugs: None Lives: with Family Review of Systems Review of Systems Review of systems are currently negative otherwise addressed in HPI. Allergies: Coded Allergies: NO KNOWN ALLERGIES (Unverified , 01/05/24) Medications Current Medications Medications Dose Ordered Sig/Edson Route Start Time Stop Time Status Last Admin Dose Admin Albuterol 2.5 mg Q6HPRN PRN NEB 03/14/25 19:45 Atorvastatin Calcium 40 mg HS PO 03/14/25 22:00 03/14/25 22:14 40 MG Carvedilol 12.5 mg BIDWM PO 03/14/25 19:49 03/14/25 20:00 12.5 MG Clopidogrel Bisulfate 75 mg DAILY PO 03/15/25 10:00 Furosemide 40 mg DAILY PO 03/15/25 10:00 Isosorbide Mononitrate 30 mg DAILY PO 03/15/25 10:00 Ranolazine 500 mg BID PO 03/14/25 22:00 03/14/25 22:14 500 MG Sevelamer HCl 800 mg TIDWM PO 03/15/25 08:00 Aspirin 162 mg DAILY PO 03/15/25 10:00 Ondansetron HCl 4 mg Q4HP PRN IV 03/14/25 19:45 Acetaminophen 650 mg Q6HP PRN PO 03/14/25 19:45 Nitroglycerin 0.4 mg Q5MINP PRN SL 03/14/25 19:45 Morphine Sulfate 2 mg Q30M PRN IV 03/14/25 19:45 Exam Vital Signs Vital Signs Date Time Temp Pulse Resp B/P (MAP) Pulse Ox O2 Delivery O2 Flow Rate FiO2 03/15/25 04:00 81 18 141/71 (94) 99 03/15/25 02:44 Nasal Cannula* 3 32 03/14/25 22:00 97.6 97.6 Exam Gen: 75-year-old male in mild distress Skin: Warm, dry, normal color and texture, no rash. HEENT: Normocephalic atraumatic, mucous membranes moist and pink. Neck: Cervical and supraclavicular nodes normal without enlargement, trachea is midline, thyroid gland is normal without masses. Pulmonary: Bilateral rhonchi Cardiac: Regular rate and rhythm. No murmur Abdomen: Soft, nontender, nondistended, bowel sounds present all 4 quadrants, no guarding, no rigidity, no organomegaly. Extremities: No cyanosis, clubbing, no edema Neuro: Cranial nerves II through XII grossly intact, normal affect and speech, no focal motor deficits. Labs/Xrays ORDERING PHYSICIAN: BRITTNEY YEUNG MD PROCEDURE(s): CXRP - CHEST PORTABLE REASON: sob ORDER NUMBER(s): [id number], ACCESSION NUMBER(s): [id number] CHEST RADIOGRAPH Indication: sob Technique: Single frontal view of the chest was obtained Comparison: XY CHEST PORTABLE on DOS: 02/20/25, XY CHEST PORTABLE on DOS: 01/04/25, XY CHEST PORTABLE on DOS: 12/15/24 FINDINGS: Lines and Tubes: None. Right-sided approach single lead AICD terminating within right ventricle. Lungs: Interstitial and alveolar type opacities of bilateral to lower lung zones. Minimal blunting of the left costophrenic angle. No pneumothorax. Cardiomediastinal contours: Borderline cardiomegaly. Midline sternotomy wires surgical clips are noted consistent with prior history of CABG. Vascular stent is noted over the left axilla. Bones: No acute osseous abnormality. IMPRESSION: Interstitial and alveolar type opacities of bilateral mid to lower lung zones which may represent pneumonia in the right clinical setting. Trace left-sided pleural effusion. Labs Test 03/15/25 03:28 03/14/25 20:44 03/14/25 19:10 03/14/25 16:15 Range/Units White Blood Count 8.5 # 4.4-10.8 10^3/uL Red Blood Count 3.95 L 4.5-5.90 10^6/uL Hemoglobin 13.6 13.5-17.5 g/dL Hematocrit 39.0 L 41.0-53.0 % Mean Corpuscular Volume 98.8 80.0-100.0 fL Mean Corpuscular Hemoglobin 34.4 H 28.0-32.0 pg Mean Corpuscular Hemoglobin Concent 34.8 32.0-36.0 g/dL Red Cell Distribution Width 15.9 H 11.8-14.3 % Platelet Count 148 140-450 10^3/uL Mean Platelet Volume 7.5 6.9-10.8 fL Neutrophils (%) (Auto) 89.8 H 37.0-80.0 % Lymphocytes (%) (Auto) 4.9 L 10.0-50.0 % Monocytes (%) (Auto) 5.0 0.0-12.0 % Eosinophils (%) (Auto) 0.1 0.0-7.0 % Basophils (%) (Auto) 0.2 0.0-2.0 % Neutrophils # (Auto) 7.7 1.6-8.6 10 ^3/uL Lymphocytes # (Auto) 0.4 0.4-5.4 10 ^3/uL Monocytes # (Auto) 0.4 0-1.3 10 ^3/uL Eosinophils # (Auto) 0 0-0.8 10 ^3/uL Basophils # (Auto) 0 0-0.2 10 ^3/uL Nucleated Red Blood Cells 0.1 % POC Glucose 119 H 70-106 mg/dl Troponin I High Sensitivity 252 *H </=54 ng/L B-Type Natriuretic Peptide 3537.35 0-100 pg/mL Blood Gas Specimen Type Arterial Blood Gas Sample Site Right radial Blood Gas Patient Temperature 37.0 Arterial Blood Date Drawn [id number] Arterial Blood pH 7.438 7.350-7.450 Arterial Blood Partial Pressure CO2 38.9 35.0-48.0 mmHg Arterial Blood Partial Pressure O2 81.2 L 83.0-108.0 mmHg Arterial Blood HCO3 25.7 21.0-28.0 mmol/L Arterial Blood Oxygen Saturation 94.9 94.0-98.0 % Arterial Blood Base Excess 1.6 -2.0-3.0 mmol/L Arterial Blood Oxyhemoglobin 93.9 L 94.0-98.0 % Arterial Blood Carboxyhemoglobin 0.8 0.5-1.5 % Arterial Blood Methemoglobin 0.3 0.0-1.5 % Max Test Yes Blood Gas Total Hemoglobin 13.40 L 13.5-17.5 g/dL Blood Gas Modality Mask - bipap FiO2 % 35.0 Blood Gas EPAP 5 Blood Gas IPAP 12 Test 03/14/25 14:15 03/14/25 13:32 Range/Units Blood Gas Liter Flow 4.00 Total Bilirubin 0.5 0.2-1.0 mg/dL Aspartate Amino Transferase (AST) 69 H 13-40 U/L Alanine Aminotransferase (ALT) 79 H 7-40 U/L Alkaline Phosphatase 109 46-116 U/L Total Protein 7.9 5.7-8.2 g/dL Albumin 4.2 3.2-4.8 g/dL SEPSIS Sepsis Screen Date sepsis recognized/suspect: Mar 15, 2025 Time Sepsis recognized/suspect: 229 Recent Procedure: No On Antibiotic Therapy: No Respiratory Rate >20: No Heart Rate >90: No Temp<36 C (96.8 F) or >38.3 C: No SBP <90 or MAP <65 mmHG: No New Acute Mental Status Change: No Is the patient on CPAP, BIPAP,: No Vital Signs Date Time Temp Pulse Resp B/P (MAP) Pulse Ox O2 Delivery O2 Flow Rate FiO2 03/15/25 04:00 81 18 141/71 (94) 99 03/15/25 04:00 85 03/15/25 02:44 84 20 99 Nasal Cannula* 3 32 03/15/25 02:00 84 20 151/54 (86) 99 03/15/25 00:00 87 21 141/73 (95) 98 03/14/25 22:00 97.6 88 22 150/73 99 3.0 32 97.6 03/14/25 22:00 97 21 160/91 (114) 97 03/14/25 21:11 95 22 99 03/14/25 21:01 99 Bi-Pap+ 35 35 03/14/25 21:01 99 Bi-pap/CPAP 03/14/25 21:01 97 24 99 03/14/25 21:00 95 150/73 Laboratory Tests Test 03/15/25 03:28 White Blood Count 8.5 10^3/uL (4.4-10.8) # Medications Medications Dose Ordered Sig/Edson Route Start Time Stop Time Status Last Admin Dose Admin Albuterol 20 mg ONCE ONCE NEB 03/14/25 20:30 03/14/25 20:34 DC 03/14/25 21:01 20 MG Atorvastatin Calcium 40 mg HS PO 03/14/25 22:00 03/14/25 22:14 40 MG Calcium Gluconate/ Sodium Chloride 50 ml @ 100 mls/hr ONCE ONCE IV 03/14/25 20:30 03/14/25 20:59 DC 03/14/25 20:41 100 MLS/HR Carvedilol 12.5 mg BIDWM PO 03/14/25 19:49 03/14/25 20:00 12.5 MG Clopidogrel Bisulfate 75 mg ONCE ONCE PO 03/14/25 19:49 03/14/25 19:53 DC 03/14/25 20:00 75 MG Dextrose 50 ml ONCE ONCE IV 03/14/25 20:30 03/14/25 20:34 DC 03/14/25 20:41 50 ML Enoxaparin Sodium 80 mg ONCE ONCE SC 03/14/25 20:30 03/14/25 20:34 DC 03/14/25 20:41 80 MG Insulin Human Regular 10 units ONCE ONCE IV 03/14/25 20:30 03/14/25 20:34 DC 03/14/25 20:41 10 UNITS Ranolazine 500 mg BID PO 03/14/25 22:00 03/14/25 22:14 500 MG Sodium Bicarbonate 50 ml ONCE ONCE IV 03/14/25 20:30 03/14/25 20:34 DC 03/14/25 20:41 50 ML Zirconium Oxide 10 gm ONCE ONCE PO 03/14/25 20:30 03/14/25 20:34 DC 03/14/25 20:41 10 GM Assessment/Plan Assessment/Plan Assessment Fluid overload Congestive heart failure End-stage renal disease, dialysis dependent with hyperkalemia Elevated troponin, demand ischemia Plan Admit the patient to [facility] to the hospitalist Nephrology consultation Resume home medications Continue treatment per orders. Total critical care time excluding procedures performed this 50 minutes. Plan discussed with: Patient My Orders Orders - CRAIG ROOT AGACNP Procedure Category Date Status Time Albuterol Medneb PHA 03/14/25 In Process (Ventolin Medneb) 19:45 Atorvastatin (Lipitor) PHA 03/14/25 In Process 22:00 Carvedilol Tablet PHA 03/14/25 In Process (Coreg Tablet) 19:49 Clopidogrel Bisulfate PHA 03/15/25 In Process (Plavix) 10:00 Furosemide Tablet PHA 03/15/25 In Process (Lasix Tablet) 10:00 Isosorbide PHA 03/15/25 In Process Mononitrate Tablet 10:00 Ranolazine (Ranexa Er) PHA 03/14/25 In Process 22:00 Sevelamer (Renagel) PHA 03/15/25 In Process 08:00 Basic Metabolic Panel LAB 03/15/25 In Process 04:00 Aspirin Tablet PHA 03/15/25 In Process 10:00 Admit ADMIT 03/14/25 Transmitted 19:34 Renal DIET 03/15/25 Transmitted Standard(2gna,3gk,Lopho) Breakfast Ondansetron Hcl PHA 03/14/25 In Process (Zofran) 19:45 Condition: Serious RADHA 03/14/25 In Process 19:34 Acetaminophen Tablet PHA 03/14/25 In Process (Tylenol Tablet) 19:45 Bedrest With Bathroom RADHA 03/14/25 In Process Privileg 19:34 Nitroglycerin PHA 03/14/25 In Process Sublingual (Ntrostat 19:45 Morphine Sulfate PHA 03/14/25 In Process Injection 19:45 Stat Ekg For Chest [facility] 03/14/25 In Process Pain 19:34 Notify Md Of Changes [facility] 03/14/25 In Process From Base 19:34 Roping Tender For [facility] 03/14/25 In Process 24 Hours 19:34 Emergency Dysrhythmia [facility] 03/14/25 In Process Protocol 19:34 Rhythm Strips Once [facility] 03/14/25 In Process Every Shift 19:34 Oxygen By Nasal RT 03/14/25 Transmitted Cannula 19:34 Date of Service: Mar 14, 2025 Billing Provider: CRAIG ROOT Common Visit Codes: [id number] CARE 30-74 MIN CRAIG ROOT Mar 15, 2025 04:37
[2025-03-15 05:01] LABS: Anion Gap 19 (5-15); Calcium 9.6 mg/dL (8.7-10.4); Carbon Dioxide 22 mmol/L (20-31)
[2025-03-15 05:02] LABS: Chloride 88 mmol/L (98-107); Sodium 129 mmol/L (136-145)
[2025-03-15 05:04] LABS: Potassium 6.0 mmol/L (3.5-5.1)
[2025-03-15 05:07] LABS: BUN/Creatinine Ratio 4.9 (10.0-20.0)
[2025-03-15 05:10] LABS: Blood Urea Nitrogen 56 mg/dL (9-23); Glucose 236 mg/dL (74-106)
[2025-03-15] MEDS: CALCIUM GLUC 1,000mg/50ml-NS 50 ML IV ONE (05:47)
[2025-03-15] MEDS: DEXTROSE (50%) 50ML SYRG IV ONE (05:49)
[2025-03-15] MEDS: ALBUTEROL SULF 2.5 MG/0.5ML(0.5%) NEB SOLN NEB ONE (05:50)
[2025-03-15] MEDS: SODIUM ZIRCONIUM CYCL 10 GM PAK PO ONE (05:57)
[2025-03-15] MEDS: SODIUM BICARB 8.4% 50Meq/50ml SYR INJ IV ONE (05:57)
[2025-03-15] MEDS: InsuLIN REG 1unit/0.01ml Soln (100units/ml) IV ONE (06:00)
[2025-03-15] MEDS: SODIUM CHL 0.9% 1000 ML BAG XX ONE (07:00)
[2025-03-15] MEDS: SEVELAMER 800 MG TAB PO SCH (07:54)
[2025-03-15] MEDS: ISOSORBIDE MONONITRATE ER 60 MG TAB PO SCH (10:00)
[2025-03-15] MEDS: CLOPIDOGREL BISULFATE 75 MG TAB PO SCH (10:38)
[2025-03-15] MEDS: FUROSEMIDE 40 MG TAB PO SCH (10:40)
[2025-03-15 14:32] LABS: Hepatitis B Surface Antigen Negative (Negative)
--- NOTE | 2025-03-15 16:11 | DVHPN2 ---
Progress Note - Dictate Date Seen: Mar 15, 2025 Medical Necessity Reason Pt with a Central, PICC or Fol: No Subjective no new symptoms vital signs Vital Sign Date Time Temp Pulse Resp B/P (MAP) Pulse Ox O2 Delivery O2 Flow Rate FiO2 03/15/25 14:00 74 16 137/68 (91) 99 03/15/25 08:00 97.5 97.5 03/15/25 07:25 Nasal Cannula* 2 28 medications Current Medications Medications Dose Ordered Sig/Edson Route Start Time Stop Time Status Last Admin Dose Admin Albuterol 2.5 mg Q6HPRN PRN NEB 03/14/25 19:45 Atorvastatin Calcium 40 mg HS PO 03/14/25 22:00 03/14/25 22:14 40 MG Carvedilol 12.5 mg BIDWM PO 03/14/25 19:49 03/15/25 07:54 12.5 MG Clopidogrel Bisulfate 75 mg DAILY PO 03/15/25 10:00 03/15/25 10:38 75 MG Furosemide 40 mg DAILY PO 03/15/25 10:00 03/15/25 10:40 40 MG Isosorbide Mononitrate 30 mg DAILY PO 03/15/25 10:00 03/15/25 10:00 30 MG Ranolazine 500 mg BID PO 03/14/25 22:00 03/15/25 10:39 500 MG Sevelamer HCl 800 mg TIDWM PO 03/15/25 08:00 03/15/25 12:14 800 MG Aspirin 162 mg DAILY PO 03/15/25 10:00 03/15/25 10:38 162 MG Ondansetron HCl 4 mg Q4HP PRN IV 03/14/25 19:45 Acetaminophen 650 mg Q6HP PRN PO 03/14/25 19:45 Nitroglycerin 0.4 mg Q5MINP PRN SL 03/14/25 19:45 Morphine Sulfate 2 mg Q30M PRN IV 03/14/25 19:45 objective Skin: Warm, dry, normal color and texture, no rash. HEENT: Normocephalic atraumatic, mucous membranes moist and pink. Neck: Cervical and supraclavicular nodes normal without enlargement, trachea is midline, thyroid gland is normal without masses. Pulmonary: Bilateral rhonchi Cardiac: Regular rate and rhythm. No murmur Abdomen: Soft, nontender, nondistended, bowel sounds present all 4 quadrants, no guarding, no rigidity, no organomegaly. Extremities: No cyanosis, clubbing, no edema Neuro: Cranial nerves II through XII grossly intact, normal affect and speech, no focal motor deficits. laboratory and microbiology Laboratory Tests 03/15/25 03:28 Test 03/15/25 03:28 Range/Units Serum Glucose 236 #H 74-106 mg/dL Assessment/Plan End-stage kidney disease on hemodialysis Acute on chronic hypoxic respiratory failure Fluid overload Hyperkalemia Elevated troponins History of coronary artery disease status post CABG Hypertension Plan/Recommendation Seen on HD today. tolerating well Repeat HD tomorrow Fluid restriction Continue with BiPAP support. KRISTEN post HD as needed. goal Hb: 10-11 g/dl Plan discussed with: Patient, Other TRI LI MD Mar 15, 2025 16:11
--- NOTE | 2025-03-15 17:46 | DVHPN2 ---
Subjective Seen and examined at bedside in the ED. For hemodialysis today. Will await Cardiology consult with Dr. Hager. Changes from previous H/P or p: No Changes Objective Vitals Vital Signs Date Time Temp Pulse Resp B/P (MAP) Pulse Ox O2 Delivery O2 Flow Rate FiO2 03/15/25 16:15 80 17 119/68 (85) 100 03/15/25 08:00 97.5 97.5 03/15/25 07:25 Nasal Cannula* 2 28 General Appearance: Alert, Oriented X3, Cooperative, mild distress HEENT: Atraumatic Lungs: Other (Creps b/l) Cardiovascular: Regular rate, Normal S1, Normal S2 Abdomen: Normal bowel sounds, Soft Extremities: Other (Left Fistula+) Psych/Mental Status: Mental status NL Medications Current Medications Medications Dose Ordered Sig/Edson Route Start Time Stop Time Status Last Admin Dose Admin Albuterol 2.5 mg Q6HPRN PRN NEB 03/14/25 19:45 Atorvastatin Calcium 40 mg HS PO 03/14/25 22:00 03/14/25 22:14 40 MG Carvedilol 12.5 mg BIDWM PO 03/14/25 19:49 03/15/25 07:54 12.5 MG Clopidogrel Bisulfate 75 mg DAILY PO 03/15/25 10:00 03/15/25 10:38 75 MG Furosemide 40 mg DAILY PO 03/15/25 10:00 03/15/25 10:40 40 MG Isosorbide Mononitrate 30 mg DAILY PO 03/15/25 10:00 03/15/25 10:00 30 MG Ranolazine 500 mg BID PO 03/14/25 22:00 03/15/25 10:39 500 MG Sevelamer HCl 800 mg TIDWM PO 03/15/25 08:00 03/15/25 12:14 800 MG Aspirin 162 mg DAILY PO 03/15/25 10:00 03/15/25 10:38 162 MG Ondansetron HCl 4 mg Q4HP PRN IV 03/14/25 19:45 Acetaminophen 650 mg Q6HP PRN PO 03/14/25 19:45 Nitroglycerin 0.4 mg Q5MINP PRN SL 03/14/25 19:45 Morphine Sulfate 2 mg Q30M PRN IV 03/14/25 19:45 Laboratory Results Laboratory Tests 03/15/25 03:28 Chemistry Test 03/15/25 03:28 Calcium Level 9.6 mg/dL (8.7-10.4) Cardiac Markers Test 03/14/25 19:10 B-Type Natriuretic Peptide 3537.35 pg/mL (0-100) Assessment/Plan Assessment/Plan # ESRD on HD # Acute Resp Failure - Titrate oxygen down # NSTEMI - Cardio Cx # Pulm Edema # Goals of care discussion >19 mins FULL CODE Plan discussed with: Patient My Orders Orders - AYDE PEREZ MD Procedure Category Date Status Time Basic Metabolic Panel LAB 03/16/25 Verified 04:00 Complete Blood Count LAB 03/16/25 Verified 04:00 B-Type Natriuretic LAB 03/16/25 Verified Peptide 04:00 *Consult Dr. Israel CONS 03/15/25 Transmitted 17:35 Date of Service: Mar 15, 2025 Billing Provider: AYDE PEREZ MD Common Visit Codes: [id number] INP/OBS CARE(HIGH) Secondary Visit Codes: [id number] CARE PLAN 30 MINUTES AYDE PEREZ MD Mar 15, 2025 17:46
[2025-03-16] VITALS (10 sets, daily range): BP systolic 141–151; BP diastolic 68–89; PULSE 80–92; RESP 18–20; TEMP 97–97.7; O2SAT 95–100
[2025-03-16 07:13] LABS: Anion Gap 13 (5-15); Carbon Dioxide 31 mmol/L (20-31); Potassium 4.8 mmol/L (3.5-5.1); Sodium 137 mmol/L (136-145)
[2025-03-16 07:14] LABS: Calcium 9.3 mg/dL (8.7-10.4)
[2025-03-16 07:15] LABS: Hematocrit 36.3 % (41.0-53.0); Hemoglobin 12.7 g/dL (13.5-17.5); Mean Corpuscular Hemoglobin 34.9 pg (28.0-32.0); Mean Corpuscular Volume 99.7 fL (80.0-100.0); Nucleated Red Blood Cells % 0.1 %
[2025-03-16 07:19] LABS: BUN/Creatinine Ratio 5.9 (10.0-20.0)
[2025-03-16 07:24] LABS: Chloride 93 mmol/L (98-107)
[2025-03-16 07:25] LABS: Blood Urea Nitrogen 51 mg/dL (9-23); Glucose 149 mg/dL (74-106)
--- NOTE | 2025-03-16 10:25 | DVHINCON2 ---
Date of service: Mar 16, 2025 History of Present Illness HPI Patient is a 75-year-old gentleman who presented with shortness of breath on March 14, 2025. Does have history of end-stage renal disease and is on hemodialysis. He had missed 1 set of dialysis (mentions it was his birthday). Cardiology is involved for cardiac aspects of care. Patient denies any chest pains. Home Meds Active Scripts Carvedilol (COREG) 12.5 Mg Tab, 12.5 MG PO BID for 30 Days, #60 TAB 0 Refills Prov:CHRISSIE THOMAS MD 02/23/25 Magnesium Oxide (MAGNESIUM OXIDE) 400 Mg Tab, 1 TAB PO BID, #60 TAB 1 Refill Prov:MAYNOR WEBB 01/06/25 Ipratropium [place] (Ipratropium [place]) 0.02 % Brittany, 0.5 % HHN QIDP for 30 Days, #90 ML 3 Refills Prov:CRAIG NAZARIO MD 12/17/24 Albuterol Sulfate (Albuterol Sulfate) 1.25 Mg/3 Ml Neb, 1.25 MG IN QIDP for 30 Days, #90 INH 2 Refills Prov:CRAIG NAZARIO MD 12/17/24 Reported Medications Magnesium Oxide (Magnesium Oxide) 400 Mg Tab, 1 TAB PO DAILY for 90 Days, #90 10/29/24 Meloxicam (Meloxicam) 15 Mg Tab, 1 TAB PO DAILY for 30 Days, #30 10/29/24 Nitroglycerin (Nitrostat) 0.4 Mg Sub, 1 TAB PO UD for 33 Days, #100 10/29/24 Atorvastatin Calcium (ATORVASTATIN CALCIUM) 40 Mg Tab, 1 TAB PO DAILY for 90 Days, #90 10/29/24 Isosorbide Mononitrate (Isosorbide Mononitrate Er) 30 Mg Tab, 1 TAB PO DAILY for 90 Days, #90 10/29/24 Clopidogrel Bisulfate (CLOPIDOGREL) 75 Mg Tab, 1 TAB PO DAILY for 90 Days, #90 10/29/24 Ranolazine (Ranolazine ER) 500 Mg Tab, 1 TAB PO BID for 30 Days, #60 10/29/24 Furosemide (Furosemide) 40 Mg Tab, 1 TAB PO DAILY for 90 Days, #90 01/07/24 Ergocalciferol (Vitamin D) 50,000 Unit Cap, 1 CAP PO QWEEKLY 01/07/24 Omeprazole (Omeprazole Dr) 40 Mg Cap, 1 CAP PO DAILY for 90 Days, #90 01/07/24 Aspirin (Aspirin Low Dose) 81 Mg Chw, 1 TAB PO DAILY 01/07/24 Sevelamer Carbonate (Renvela) 800 Mg Tab, 2 TAB PO TID 01/07/24 Oxycodone HCl (Oxycodone Hydrochloride) 15 Mg Tab, 1 TAB PO QID for 30 Days, #120 01/07/24 Past Medical History Others Past medical history includes end-stage renal disease on hemodialysis, coronary artery disease and status post CABG and PCI, ischemic cardiomyopathy, systolic heart failure, status post right nephrectomy, COPD on home oxygen, hypertension, hyperlipidemia, diabetes mellitus, gallstones, BPH, history of symptomatic V- tach and status post ICD (Biotronik) implantation. He has had pneumonia recently. 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 Patient has had PCI previously. On September 01, 2024 patient had PCI of LAD (shockwave) by Dr. Cardona. Patient Family History: FH: cancer G8 MOTHER FH: heart disease G8 FATHER Lives with: With family Review of Systems Constitutional: No symptom reported Ears, Nose, & Throat: No symptom reported All Other Systems 14 point review of system was performed. Relevant findings as per above and as per HPI. Otherwise negative. H&P Exam Vital Signs Vital Signs Date Time Temp Pulse Resp B/P (MAP) Pulse Ox O2 Delivery O2 Flow Rate FiO2 03/16/25 08:53 97.0 80 19 145/77 (99) 97 97.0 03/16/25 06:05 Nasal Cannula* 2 28 General Appeara: Well developed Head Exam: Normal inspection Eye Exam: bilateral eye PERRL Pulmonary/Respiratory: Rhonci Cardiovascular/Chest: Normal inspection, Regular rate, Systolic murmur Peripheral Pulses: 2+ carotid (R), 2+ carotid (L), 2+ femoral (R), 2+ femoral (L), 2+ dorsalis pedis (R), 2+ dorsalis pedis (L), 2+ Radial (R), 2+ Radial (L) Abdominal Exam: Normal bowel sounds, Soft Neuro/Mental St: Alert, Oriented Appearance: Appropriate appearance Eye contact/ Speech: Cooperative Labs/Xrays Labs Test 03/16/25 06:23 03/15/25 13:43 03/15/25 05:42 03/15/25 03:28 Range/Units White Blood Count 7.4 4.4-10.8 10^3/uL Red Blood Count 3.64 L 4.5-5.90 10^6/uL Hemoglobin 12.7 L 13.5-17.5 g/dL Hematocrit 36.3 L 41.0-53.0 % Mean Corpuscular Volume 99.7 80.0-100.0 fL Mean Corpuscular Hemoglobin 34.9 H 28.0-32.0 pg Mean Corpuscular Hemoglobin Concent 35.0 32.0-36.0 g/dL Red Cell Distribution Width 15.6 H 11.8-14.3 % Platelet Count 136 L 140-450 10^3/uL Mean Platelet Volume 7.6 6.9-10.8 fL Neutrophils (%) (Auto) 81.3 H 37.0-80.0 % Lymphocytes (%) (Auto) 6.9 L 10.0-50.0 % Monocytes (%) (Auto) 11.5 0.0-12.0 % Eosinophils (%) (Auto) 0.1 0.0-7.0 % Basophils (%) (Auto) 0.2 0.0-2.0 % Neutrophils # (Auto) 6.0 1.6-8.6 10 ^3/uL Lymphocytes # (Auto) 0.5 0.4-5.4 10 ^3/uL Monocytes # (Auto) 0.8 0-1.3 10 ^3/uL Eosinophils # (Auto) 0 0-0.8 10 ^3/uL Basophils # (Auto) 0 0-0.2 10 ^3/uL Nucleated Red Blood Cells 0.1 % Sodium Level 137 # 136-145 mmol/L Potassium Level 4.8 3.5-5.1 mmol/L Chloride Level 93 L 98-107 mmol/L Carbon Dioxide Level 31 20-31 mmol/L Anion Gap 13 5-15 Blood Urea Nitrogen 51 H 9-23 mg/dL Creatinine 8.64 #H 0.700-1.30 mg/dL Glomerular Filtration Rate Calc 6 >90 mL/min BUN/Creatinine Ratio 5.9 L 10.0-20.0 Serum Glucose 149 H 74-106 mg/dL Calcium Level 9.3 8.7-10.4 mg/dL B-Type Natriuretic Peptide 4964.17 0-100 pg/mL Hepatitis B Surface Antigen Negative Negative Hepatitis B Surface Antibody Positive H Negative POC Glucose 220 H 70-106 mg/dl Hemoglobin A1c 5.9 H <5.7 % A1C Test 03/14/25 19:10 03/14/25 16:15 03/14/25 14:15 03/14/25 13:32 Range/Units Troponin I High Sensitivity 252 *H </=54 ng/L Blood Gas Specimen Type Arterial Blood Gas Sample Site Right radial Blood Gas Patient Temperature 37.0 Arterial Blood Date Drawn [id number] Arterial Blood pH 7.438 7.350-7.450 Arterial Blood Partial Pressure CO2 38.9 35.0-48.0 mmHg Arterial Blood Partial Pressure O2 81.2 L 83.0-108.0 mmHg Arterial Blood HCO3 25.7 21.0-28.0 mmol/L Arterial Blood Oxygen Saturation 94.9 94.0-98.0 % Arterial Blood Base Excess 1.6 -2.0-3.0 mmol/L Arterial Blood Oxyhemoglobin 93.9 L 94.0-98.0 % Arterial Blood Carboxyhemoglobin 0.8 0.5-1.5 % Arterial Blood Methemoglobin 0.3 0.0-1.5 % Max Test Yes Blood Gas Total Hemoglobin 13.40 L 13.5-17.5 g/dL Blood Gas Modality Mask - bipap FiO2 % 35.0 Blood Gas EPAP 5 Blood Gas IPAP 12 Blood Gas Liter Flow 4.00 Total Bilirubin 0.5 0.2-1.0 mg/dL Aspartate Amino Transferase (AST) 69 H 13-40 U/L Alanine Aminotransferase (ALT) 79 H 7-40 U/L Alkaline Phosphatase 109 46-116 U/L Total Protein 7.9 5.7-8.2 g/dL Albumin 4.2 3.2-4.8 g/dL Assessment/Plan Plan Patient is a 75-year-old gentleman who presented with shortness of breath on March 14, 2025. Does have history of end-stage renal disease and is on hemodialysis. He had missed 1 set of dialysis (mentions it was his birthday). Cardiology is involved for cardiac aspects of care. Patient denies any chest pains. He comes to our office for cardiology followups. Does have baseline history of systolic heart failure and component of acute on chronic heart failure could doe ve contributed to the clinical picture. Not in acute distress. Lying flat in bed. No JVD. Mucosa is pink and wet. No carotid bruit. Scattered rhonchi in the lungs is heard. No rales. Cardiac: Regular, no thrill. Systolic murmur 2/6 in the apex is heard. Abdomen is soft. There is no gross mass/hepatomegaly. Bowel sound is positive. Extremities do not reveal edema. Dorsalis pedis is 2+ bilateral Past medical history includes end-stage renal disease on hemodialysis, coronary artery disease and status post CABG and PCI, ischemic cardiomyopathy, systolic heart failure, status post right nephrectomy, COPD on home oxygen, hypertension, hyperlipidemia, diabetes mellitus, gallstones, BPH, history of symptomatic V- tach and status post ICD (Biotronik) implantation. He has had pneumonia recently. 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 Patient has had PCI previously. On September 01, 2024 patient had PCI of LAD (shockwave) by Dr. Cardona. Echocardiogram of October 30, 2024 (performed in [facility]) revealed ejection fraction of 35-40%, moderate /MR Echocardiogram of February 21, 2025 revealed ejection fraction of 35-40%, ischemic cardiomyopathy, possible [place] in LCX/RCA territory, optimal moderate aortic stenosis, [id number] mitral regurgitation, [id number] tricuspid regurgitation and right ventricular systolic pressure of 39 mm Hg Left heart catheterization of October 23, 2024 revealed SUPPORT SERVICES SPECIALIST of RCA and LCX. Patent stent in LAD. SVG to diagonal (small-vessel) was patent. Thomas to diagonal was patent with no disease. (Images reviewed and thomas may actually have been to ramus intermedius). There was no bypass to the RCA territory. Creatinine: 10.51 - 11.48 Potassium: 6.0 - 6.2 - 6.0 AST/ALT: 69/79 Troponin (high sensitive): 86 - 109 -252 BNP: 3537.35 Chest x-ray revealed: IMPRESSION: Interstitial and alveolar type opacities of bilateral mid to lower lung zones which may represent pneumonia in the right clinical setting. Trace left-sided pleural effusion. Tele reveals sinus rhythm Patient is a 75-year-old gentleman who presented with shortness of breath. Had missed his hemodialysis. Does have history of noncompliance with medications and followups. Was found to have mild increase in troponin. Does have baseline/previous increased troponin. Presentation is not considered acute coronary syndrome. Increased troponin is assessed to reflect demand physiology at this point. Does have baseline history of coronary artery disease and has had PCI in August 2024 and repeated cardiac catheterization was performed in October 2024. At this point, continuation of dual antiplatelet therapy (on aspirin/Plavix) is advised. Shortness of breaths Acute on chronic systolic heart failure Fluid overload Ventricular tachycardia Noncompliant with hemodialysis Ischemic cardiomyopathy Status post CABG Status post PCI End-stage renal disease on hemodialysis Noncompliant with hemodialysis Gallstones Increased D-dimer Pneumonia? Cardiac suggestion for management: Manage on telemetry Follow-up electrolytes and kidney function tests and correct abnormalities Repeated/aggressive hemodialysis Amiodarone: 200 mg p.o. b.i.d. Carvedilol: 12.5 mg p.o. b.i.d. Continuation of aspirin/Plavix (81 mg/75 mg) is advised Nephrology follow-up Thank you for consultation Further evaluation and management depends on the above and clinical course A total of 75 minutes was spent reviewing the patient record, examining the patient, making a diagnostic and therapeutic plan, discussing this plan with medical personnel, following up on diagnostic studies and following the patient for clinical stability excluding any and all procedures. At least 50% of this t susu was spent in direct, [id number] contact. Thank you for allowing me to participate in this patient's care. Further recommendations will depend on patient's clinical course. Please do not hesitate to contact me if you have any questions or concerns. This medical document was created using electronic medical record system with [employer] computerized dictation system. Although this document has been carefully reviewed, there may still be some phonetic and typographical errors. These areas are purely typographical due to the imperfection of the software programs, and do not reflect any compromise in the patient's medical care. Plan discussed with: Patient, Other (Nurse) JOSE DONNELLY MD Mar 16, 2025 10:25
[2025-03-16] MEDS: AMIODARONE HCL 200 MG TAB PO SCH (11:10)
[2025-03-16] MEDS: SODIUM CHL 0.9% 1000 ML BAG XX ONE (13:40)
--- NOTE | 2025-03-16 14:43 | DVHPN2 ---
Subjective Seen and examined at bedside, For hemodialysis today. No complaints. DC tomorrow Changes from previous H/P or p: No Changes Objective Vitals Vital Signs Date Time Temp Pulse Resp B/P (MAP) Pulse Ox O2 Delivery O2 Flow Rate FiO2 03/16/25 08:53 97.0 80 19 145/77 (99) 97 97.0 03/16/25 06:05 Nasal Cannula* 2 28 Intake/Output Intake and Output 03/16/25 07:00 Intake Total 500 ml Balance 500 ml Intake Oral 500 ml General Appearance: Alert, Oriented X3, Cooperative, mild distress HEENT: Atraumatic Lungs: Other (Creps b/l) Cardiovascular: Regular rate, Normal S1, Normal S2 Abdomen: Normal bowel sounds, Soft Extremities: Other (Left Fistula+) Psych/Mental Status: Mental status NL Medications Current Medications Medications Dose Ordered Sig/Edson Route Start Time Stop Time Status Last Admin Dose Admin Albuterol 2.5 mg Q6HPRN PRN NEB 03/14/25 19:45 Atorvastatin Calcium 40 mg HS PO 03/14/25 22:00 03/15/25 22:13 40 MG Carvedilol 12.5 mg BIDWM PO 03/14/25 19:49 03/15/25 18:43 12.5 MG Clopidogrel Bisulfate 75 mg DAILY PO 03/15/25 10:00 03/16/25 11:10 75 MG Furosemide 40 mg DAILY PO 03/15/25 10:00 03/15/25 10:40 40 MG Isosorbide Mononitrate 30 mg DAILY PO 03/15/25 10:00 03/15/25 10:00 30 MG Ranolazine 500 mg BID PO 03/14/25 22:00 03/16/25 11:10 500 MG Sevelamer HCl 800 mg TIDWM PO 03/15/25 08:00 03/16/25 13:15 800 MG Aspirin 162 mg DAILY PO 03/15/25 10:00 03/16/25 11:10 162 MG Ondansetron HCl 4 mg Q4HP PRN IV 03/14/25 19:45 Acetaminophen 650 mg Q6HP PRN PO 03/14/25 19:45 Nitroglycerin 0.4 mg Q5MINP PRN SL 03/14/25 19:45 Morphine Sulfate 2 mg Q30M PRN IV 03/14/25 19:45 Amiodarone HCl 200 mg BID PO 03/16/25 10:00 03/16/25 11:10 200 MG Laboratory Results Laboratory Tests 03/16/25 06:23 Chemistry Test 03/16/25 06:23 Calcium Level 9.3 mg/dL (8.7-10.4) Cardiac Markers Test 03/16/25 06:23 B-Type Natriuretic Peptide 4964.17 pg/mL (0-100) Microbiology Microbiology Date/Time Source Procedure Growth Status 03/15/25 21:26 Nose MRSA Screen - Final Complete Assessment/Plan Assessment/Plan # ESRD on HD # Acute Resp Failure - Titrate oxygen down # NSTEMI - Cardio Cx # Pulm Edema # Goals of care discussion >19 mins FULL CODE Plan discussed with: Patient My Orders Orders - AYDE PEREZ MD Procedure Category Date Status Time *Consult Dr. Israel CONS 03/15/25 Transmitted 21:04 Date of Service: Mar 16, 2025 Billing Provider: AYDE PEREZ MD Common Visit Codes: [id number] INP/OBS CARE(HIGH) AYDE PEREZ MD Mar 16, 2025 14:43
--- NOTE | 2025-03-16 16:48 | DVHPN2 ---
Progress Note - Dictate Date Seen: Mar 16, 2025 Medical Necessity Reason Pt with a Central, PICC or Fol: No Subjective no new symptoms vital signs Vital Sign Date Time Temp Pulse Resp B/P (MAP) Pulse Ox O2 Delivery O2 Flow Rate FiO2 03/16/25 08:53 97.0 80 19 145/77 (99) 97 97.0 03/16/25 06:05 Nasal Cannula* 2 28 Total Intake and Output 03/15/25 03/15/25 03/16/25 15:00 23:00 07:00 Intake Total 500 ml Balance 500 ml medications Current Medications Medications Dose Ordered Sig/Edson Route Start Time Stop Time Status Last Admin Dose Admin Albuterol 2.5 mg Q6HPRN PRN NEB 03/14/25 19:45 Atorvastatin Calcium 40 mg HS PO 03/14/25 22:00 03/15/25 22:13 40 MG Carvedilol 12.5 mg BIDWM PO 03/14/25 19:49 03/15/25 18:43 12.5 MG Clopidogrel Bisulfate 75 mg DAILY PO 03/15/25 10:00 03/16/25 11:10 75 MG Furosemide 40 mg DAILY PO 03/15/25 10:00 03/15/25 10:40 40 MG Isosorbide Mononitrate 30 mg DAILY PO 03/15/25 10:00 03/15/25 10:00 30 MG Ranolazine 500 mg BID PO 03/14/25 22:00 03/16/25 11:10 500 MG Sevelamer HCl 800 mg TIDWM PO 03/15/25 08:00 03/16/25 13:15 800 MG Aspirin 162 mg DAILY PO 03/15/25 10:00 03/16/25 11:10 162 MG Ondansetron HCl 4 mg Q4HP PRN IV 03/14/25 19:45 Acetaminophen 650 mg Q6HP PRN PO 03/14/25 19:45 Nitroglycerin 0.4 mg Q5MINP PRN SL 03/14/25 19:45 Morphine Sulfate 2 mg Q30M PRN IV 03/14/25 19:45 Amiodarone HCl 200 mg BID PO 03/16/25 10:00 03/16/25 11:10 200 MG objective Skin: Warm, dry, normal color and texture, no rash. HEENT: Normocephalic atraumatic, mucous membranes moist and pink. Neck: Cervical and supraclavicular nodes normal without enlargement, trachea is midline, thyroid gland is normal without masses. Pulmonary: Bilateral rhonchi Cardiac: Regular rate and rhythm. No murmur Abdomen: Soft, nontender, nondistended, bowel sounds present all 4 quadrants, no guarding, no rigidity, no organomegaly. Extremities: No cyanosis, clubbing, no edema Neuro: Cranial nerves II through XII grossly intact, normal affect and speech, no focal motor deficits. laboratory and microbiology Laboratory Tests 03/16/25 06:23 Test 03/16/25 06:23 Range/Units Serum Glucose 149 H 74-106 mg/dL Assessment/Plan End-stage kidney disease on hemodialysis Acute on chronic hypoxic respiratory failure Fluid overload Hyperkalemia Elevated troponins History of coronary artery disease status post CABG Hypertension Plan/Recommendation Seen on HD today. tolerating well Repeat HD again today (Saturday) Fluid restriction Continue with BiPAP support. KRISTEN post HD as needed. goal Hb: 10-11 g/dl Plan discussed with: Patient TRI LI MD Mar 16, 2025 16:48
[2025-03-17] VITALS (9 sets, daily range): BP systolic 117–142; BP diastolic 59–86; PULSE 68–77; RESP 17–18; TEMP 36.7; O2SAT 98–100
[2025-03-17 00:14] LABS: Urine Protein, UAD 2+ (Negative)
--- NOTE | 2025-03-17 06:35 | DVHPN2 ---
Progress Note - Dictate Date Seen: Mar 17, 2025 Medical Necessity Reason Pt with a Central, PICC or Fol: No vital signs Vital Sign Date Time Temp Pulse Resp B/P (MAP) Pulse Ox O2 Delivery O2 Flow Rate FiO2 03/17/25 05:00 97.6 76 18 142/59 (86) 100 97.6 03/16/25 20:00 Nasal Cannula* 2 28 Total Intake and Output 03/16/25 03/16/25 03/17/25 15:00 23:00 07:00 Intake Total 400 ml 1160 ml Balance 400 ml 1160 ml medications Current Medications Medications Dose Ordered Sig/Edson Route Start Time Stop Time Status Last Admin Dose Admin Albuterol 2.5 mg Q6HPRN PRN NEB 03/14/25 19:45 Atorvastatin Calcium 40 mg HS PO 03/14/25 22:00 03/16/25 22:03 40 MG Carvedilol 12.5 mg BIDWM PO 03/14/25 19:49 03/16/25 18:40 12.5 MG Clopidogrel Bisulfate 75 mg DAILY PO 03/15/25 10:00 03/16/25 11:10 75 MG Furosemide 40 mg DAILY PO 03/15/25 10:00 03/15/25 10:40 40 MG Isosorbide Mononitrate 30 mg DAILY PO 03/15/25 10:00 03/15/25 10:00 30 MG Ranolazine 500 mg BID PO 03/14/25 22:00 03/16/25 22:03 500 MG Sevelamer HCl 800 mg TIDWM PO 03/15/25 08:00 03/16/25 18:40 800 MG Aspirin 162 mg DAILY PO 03/15/25 10:00 03/16/25 11:10 162 MG Ondansetron HCl 4 mg Q4HP PRN IV 03/14/25 19:45 Acetaminophen 650 mg Q6HP PRN PO 03/14/25 19:45 Nitroglycerin 0.4 mg Q5MINP PRN SL 03/14/25 19:45 Morphine Sulfate 2 mg Q30M PRN IV 03/14/25 19:45 Amiodarone HCl 200 mg BID PO 03/16/25 10:00 03/16/25 22:03 200 MG laboratory and microbiology Laboratory Tests 03/16/25 06:23 Test 03/16/25 06:23 Range/Units Serum Glucose 149 H 74-106 mg/dL Assessment/Plan Patient is a 75-year-old gentleman who presented with shortness of breath on March 14, 2025. Does have history of end-stage renal disease and is on hemodialysis. He had missed 1 set of dialysis (mentions it was his birthday). Cardiology is involved for cardiac aspects of care. Patient denies any chest pains. He comes to our office for cardiology followups. Does have baseline history of systolic heart failure and component of acute on chronic heart failure could have contributed to the clinical picture. Not in acute distress. Lying flat in bed. No JVD. Mucosa is pink and wet. No carotid bruit. Scattered rhonchi in the lungs is heard. No rales. Cardiac: Regular, no thrill. Systolic murmur 2/6 in the apex is heard. Abdomen is soft. There is no gross mass/hepatomegaly. Bowel sound is positive. Extremities do not reveal edema. Dorsalis pedis is 2+ bilateral Past medical history includes end-stage renal disease on hemodialysis, coronary artery disease and status post CABG and PCI, ischemic cardiomyopathy, systolic heart failure, status post right nephrectomy, COPD on home oxygen, hypertension, hyperlipidemia, diabetes mellitus, gallstones, BPH, history of symptomatic V- tach and status post ICD (Biotronik) implantation. He has had pneumonia recently. 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 Patient has had PCI previously. On September 01, 2024 patient had PCI of LAD (shockwave) by Dr. Cardona. Echocardiogram of October 30, 2024 (performed in [facility]) revealed ejection fraction of 35-40%, moderate /MR Echocardiogram of February 21, 2025 revealed ejection fraction of 35-40%, ischemic cardiomyopathy, possible CT in LCX/RCA territory, optimal moderate aortic stenosis, [id number] mitral regurgitation, [id number] tricuspid regurgitation and right ventricular systolic pressure of 39 mm Hg Left heart catheterization of October 23, 2024 revealed ENERGY BROKER of RCA and LCX. Patent stent in LAD. SVG to diagonal (small-vessel) was patent. Thomas to diagonal was patent with no disease. (Images reviewed and thomas may actually have been to ramus intermedius). There was no bypass to the RCA territory. Creatinine: 10.51 - 11.48 - 8.64 Potassium: 6.0 - 6.2 - 6.0 - 4.8 AST/ALT: 69/79 Troponin (high sensitive): 86 - 109 -252 BNP: 3537.35 - 4964.17 Chest x-ray revealed: IMPRESSION: Interstitial and alveolar type opacities of bilateral mid to lower lung zones which may represent pneumonia in the right clinical setting. Trace left-sided pleural effusion. Tele reveals sinus rhythm Patient is a 75-year-old gentleman who presented with shortness of breath. Had missed his hemodialysis. Does have history of noncompliance with medications and followups. Was found to have mild increase in troponin. Does have baseline/previous increased troponin. Presentation is not considered acute coronary syndrome. Increased troponin is assessed to reflect demand physiology at this point. Does have baseline history of coronary artery disease and has had PCI in August 2024 and repeated cardiac catheterization was performed in October 2024. At this point, continuation of dual antiplatelet therapy (on aspirin/Plavix) is advised. Shortness of breaths Acute on chronic systolic heart failure Fluid overload Ventricular tachycardia Noncompliant with hemodialysis Ischemic cardiomyopathy Status post CABG Status post PCI End-stage renal disease on hemodialysis Noncompliant with hemodialysis Gallstones Increased D-dimer Pneumonia? Cardiac suggestion for management: Manage on telemetry Follow-up electrolytes and kidney function tests and correct abnormalities Repeated/aggressive hemodialysis Amiodarone: 200 mg p.o. b.i.d. Carvedilol: 12.5 mg p.o. b.i.d. Continuation of aspirin/Plavix (81 mg/75 mg) is advised Nephrology follow-up Cardiac brothers, stable Further evaluation and management depends on the above and clinical course A total of 55 minutes was spent reviewing the patient record, examining the patient, making a diagnostic and therapeutic plan, discussing this plan with medical personnel, following up on diagnostic studies and following the patient for clinical stability excluding any and all procedures. At least 50% of this time was spent in direct, [id number] contact. Thank you for allowing me to participate in this patient's care. Further recommendations will depend on patient's clinical course. Please do not hesitate to contact me if you have any questions or concerns. This medical document was created using electronic medical record system with [employer] dictation system. Although this document has been carefully reviewed, there may still be some phonetic and typographical errors. These areas are purely typographical due to the imperfection of the software programs, and do not reflect any compromise in the patient's medical care. Plan discussed with: Patient, Other (nurse) JOSE DONNELLY MD Mar 17, 2025 06:35
--- NOTE | 2025-03-17 07:25 | DVHPN2 ---
Progress Note - Dictate Date Seen: Mar 17, 2025 Medical Necessity Reason Pt with a Central, PICC or Fol: No Subjective no new symptoms vital signs Vital Sign Date Time Temp Pulse Resp B/P (MAP) Pulse Ox O2 Delivery O2 Flow Rate FiO2 03/17/25 05:00 97.6 76 18 142/59 (86) 100 97.6 03/16/25 20:00 Nasal Cannula* 2 28 Total Intake and Output 03/16/25 03/16/25 03/17/25 15:00 23:00 07:00 Intake Total 400 ml 1160 ml Balance 400 ml 1160 ml medications Current Medications Medications Dose Ordered Sig/Edson Route Start Time Stop Time Status Last Admin Dose Admin Albuterol 2.5 mg Q6HPRN PRN NEB 03/14/25 19:45 Atorvastatin Calcium 40 mg HS PO 03/14/25 22:00 03/16/25 22:03 40 MG Carvedilol 12.5 mg BIDWM PO 03/14/25 19:49 03/16/25 18:40 12.5 MG Clopidogrel Bisulfate 75 mg DAILY PO 03/15/25 10:00 03/16/25 11:10 75 MG Furosemide 40 mg DAILY PO 03/15/25 10:00 03/15/25 10:40 40 MG Isosorbide Mononitrate 30 mg DAILY PO 03/15/25 10:00 03/15/25 10:00 30 MG Ranolazine 500 mg BID PO 03/14/25 22:00 03/16/25 22:03 500 MG Sevelamer HCl 800 mg TIDWM PO 03/15/25 08:00 03/16/25 18:40 800 MG Aspirin 162 mg DAILY PO 03/15/25 10:00 03/16/25 11:10 162 MG Ondansetron HCl 4 mg Q4HP PRN IV 03/14/25 19:45 Acetaminophen 650 mg Q6HP PRN PO 03/14/25 19:45 Nitroglycerin 0.4 mg Q5MINP PRN SL 03/14/25 19:45 Morphine Sulfate 2 mg Q30M PRN IV 03/14/25 19:45 Amiodarone HCl 200 mg BID PO 03/16/25 10:00 03/16/25 22:03 200 MG objective Skin: Warm, dry, normal color and texture, no rash. HEENT: Normocephalic atraumatic, mucous membranes moist and pink. Neck: Cervical and supraclavicular nodes normal without enlargement, trachea is midline, thyroid gland is normal without masses. Pulmonary: Bilateral rhonchi Cardiac: Regular rate and rhythm. No murmur Abdomen: Soft, nontender, nondistended, bowel sounds present all 4 quadrants, no guarding, no rigidity, no organomegaly. Extremities: No cyanosis, clubbing, no edema Neuro: Cranial nerves II through XII grossly intact, normal affect and speech, no focal motor deficits. laboratory and microbiology Laboratory Tests 03/16/25 06:23 Test 03/16/25 06:23 Range/Units Serum Glucose 149 H 74-106 mg/dL Assessment/Plan End-stage kidney disease on hemodialysis Acute on chronic hypoxic respiratory failure Fluid overload Hyperkalemia Elevated troponins History of coronary artery disease status post CABG Hypertension Plan/Recommendation s/p HD Saturday and Saturday Next HD on Fluid restriction KRISTEN post HD as needed. goal Hb: 10-11 g/dl Plan discussed with: Patient TRI LI MD Mar 17, 2025 07:25
--- NOTE | 2025-03-17 11:49 | DVHDS2 ---
Discharge Summary Date of Admission Mar 14, 2025 at 19:34 Date of Discharge: Mar 17, 2025 Admitting Diagnosis ESRD on HD Labs/Diagnostic Data: Laboratory Results Test 03/16/25 23:50 03/16/25 06:23 03/15/25 13:43 03/15/25 05:42 Urine Color Light-yellow (Yellow) Urine Clarity Clear (Clear) Urine pH 7.5 (5.0-9.0) Urine Specific [place] 1.012 (1.001-1.035) Urine Protein 2+ (Negative) Urine Ketones Negative (Negative) Urine Blood Trace /uL (Negative) Urine Nitrite Negative (Negative) Urine Bilirubin Negative (Negative) Urine Urobilinogen Normal mg/dL (Negative) Urine Leukocyte Esterase 1+ /uL (Negative) Urine RBC 1 /hpf (0 - 3) Urine Microscopic WBC 21 /HPF (0-3) Urine Squamous Epithelial Cells Few /hpf (<5) Urine Bacteria None seen /hpf (None Seen) Urine Glucose 3+ mg/dL (Normal) White Blood Count 7.4 10^3/uL (4.4-10.8) Red Blood Count 3.64 10^6/uL (4.5-5.90) Hemoglobin 12.7 g/dL (13.5-17.5) Hematocrit 36.3 % (41.0-53.0) Mean Corpuscular Volume 99.7 fL (80.0-100.0) Mean Corpuscular Hemoglobin 34.9 pg (28.0-32.0) Mean Corpuscular Hemoglobin Concent 35.0 g/dL (32.0-36.0) Red Cell Distribution Width 15.6 % (11.8-14.3) Platelet Count 136 10^3/uL (140-450) Mean Platelet Volume 7.6 fL (6.9-10.8) Neutrophils (%) (Auto) 81.3 % (37.0-80.0) Lymphocytes (%) (Auto) 6.9 % (10.0-50.0) Monocytes (%) (Auto) 11.5 % (0.0-12.0) Eosinophils (%) (Auto) 0.1 % (0.0-7.0) Basophils (%) (Auto) 0.2 % (0.0-2.0) Neutrophils # (Auto) 6.0 10 ^3/uL (1.6-8.6) Lymphocytes # (Auto) 0.5 10 ^3/uL (0.4-5.4) Monocytes # (Auto) 0.8 10 ^3/uL (0-1.3) Eosinophils # (Auto) 0 10 ^3/uL (0-0.8) Basophils # (Auto) 0 10 ^3/uL (0-0.2) Nucleated Red Blood Cells 0.1 % Sodium Level 137 mmol/L (136-145) Potassium Level 4.8 mmol/L (3.5-5.1) Chloride Level 93 mmol/L (98-107) Carbon Dioxide Level 31 mmol/L (20-31) Anion Gap 13 (5-15) Blood Urea Nitrogen 51 mg/dL (9-23) Creatinine 8.64 mg/dL (0.700-1.30) Glomerular Filtration Rate Calc 6 mL/min (>90) BUN/Creatinine Ratio 5.9 (10.0-20.0) Serum Glucose 149 mg/dL (74-106) Calcium Level 9.3 mg/dL (8.7-10.4) B-Type Natriuretic Peptide 4964.17 pg/mL (0-100) Hepatitis B Surface Antigen Negative (Negative) Hepatitis B Surface Antibody Positive (Negative) POC Glucose 220 mg/dl (70-106) Test 03/15/25 03:28 03/14/25 19:10 03/14/25 16:15 03/14/25 14:15 Hemoglobin A1c 5.9 % A1C (<5.7) Troponin I High Sensitivity 252 ng/L (</=54) Blood Gas Specimen Type Arterial Blood Gas Sample Site Right radial Blood Gas Patient Temperature 37.0 Arterial Blood Date Drawn [id number] Arterial Blood pH 7.438 (7.350-7.450) Arterial Blood Partial Pressure CO2 38.9 mmHg (35.0-48.0) Arterial Blood Partial Pressure O2 81.2 mmHg (83.0-108.0) Arterial Blood HCO3 25.7 mmol/L (21.0-28.0) Arterial Blood Oxygen Saturation 94.9 % (94.0-98.0) Arterial Blood Base Excess 1.6 mmol/L (-2.0-3.0) Arterial Blood Oxyhemoglobin 93.9 % (94.0-98.0) Arterial Blood Carboxyhemoglobin 0.8 % (0.5-1.5) Arterial Blood Methemoglobin 0.3 % (0.0-1.5) Max Test Yes Blood Gas Total Hemoglobin 13.40 g/dL (13.5-17.5) Blood Gas Modality Mask - bipap FiO2 % 35.0 Blood Gas EPAP 5 Blood Gas IPAP 12 Blood Gas Liter Flow 4.00 Test 03/14/25 13:32 Total Bilirubin 0.5 mg/dL (0.2-1.0) Aspartate Amino Transferase (AST) 69 U/L (13-40) Alanine Aminotransferase (ALT) 79 U/L (7-40) Alkaline Phosphatase 109 U/L (46-116) Total Protein 7.9 g/dL (5.7-8.2) Albumin 4.2 g/dL (3.2-4.8) Other Laboratory Tests 03/16/25 06:23 Brief Hx & Hospital Course: This is a 75-year-old male with history of end-stage kidney disease presenting to the emergency room because of shortness of breath. As per the history obtained from the patient his dialysis days are Saturday. Patient went for his dialysis on Saturday instead of Saturday. Ultrafiltration was minimal. Developed shortness of breath today and hence presented to the emergency room. Noted to be hypoxic and placed on BiPAP. Patient also has elevated tropnins, no chest pain. Underwent dialysis, tolerated well. Will discharge home. Condition at Discharge: Poor Final Diagnosis/Problems List # ESRD on HD # Acute Resp Failure - Titrate oxygen down # NSTEMI - Cardio Cx # Pulm Edema # Goals of care discussion >19 mins FULL CODE Discharge Disposition: Home Discharge Instruct/Medications Diet: Renal Activity: Light activity Scheduled Albuterol Sulfate (Albuterol Sulfate), 1.25 MG IN QIDP Aspirin (Aspirin Low Dose), 1 TAB PO DAILY, (Reported) Atorvastatin Calcium (Atorvastatin Calcium), 1 TAB PO DAILY, (Reported) Carvedilol (Coreg), 12.5 MG PO BID Clopidogrel Bisulfate (Clopidogrel), 1 TAB PO DAILY, (Reported) Ergocalciferol (Vitamin D), 1 CAP PO QWEEKLY, (Reported) Furosemide (Furosemide), 1 TAB PO DAILY, (Reported) Ipratropium [place] (Ipratropium [place]), 0.5 % HHN QIDP Isosorbide Mononitrate (Isosorbide Mononitrate Er), 1 TAB PO DAILY, (Reported) Magnesium Oxide (Magnesium Oxide), 1 TAB PO DAILY, (Reported) Magnesium Oxide (Magnesium Oxide), 1 TAB PO BID Meloxicam (Meloxicam), 1 TAB PO DAILY, (Reported) Nitroglycerin (Nitrostat), 1 TAB PO UD, (Reported) Omeprazole (Omeprazole Dr), 1 CAP PO DAILY, (Reported) Oxycodone HCl (Oxycodone Hydrochloride), 1 TAB PO QID, (Reported) Ranolazine (Ranolazine ER), 1 TAB PO BID, (Reported) Sevelamer Carbonate (Renvela), 2 TAB PO TID, (Reported) Discharge Statement: "Patient was advised to return to the ER or call 911 if any headaches, dizziness, shortness of breath, chest pain, abdominal pain, bleeding, fevers, or worsening of medical condition. Patient was counseled about treatment plan, medications, possible side effects, patientverbalized understanding. All questions were answered to the best of my ability. This discharge took greater then 30 minutes in planning, reviewing documentation, counseling the patient, and discussing with other team members." ASSESSMENT ASSESSMENT Assessment # ESRD on HD # Acute Resp Failure - Titrate oxygen down # NSTEMI - Cardio Cx # Pulm Edema # Goals of care discussion >19 mins FULL CODE Date of Service: Mar 17, 2025 Billing Provider: AYDE PEREZ MD Common Visit Codes: 72697-FAJ/OBS DISCH DAY >30min AYDE PEREZ MD Mar 17, 2025 11:49
[2025-03-18] MEDS ORDERED: SODIUM CHL 0.9% 1000 ML BAG XX ONE (07:00)
--- NOTE | 2025-03-18 07:37 | ECG ---
[facility] Test Date: 2025-03-16 Test Time: 17:20:25 Pat Name: MAXIMUS MAR Department: Respiratoy Room: 0295T A Gender: M Mine Expert: DERREK IGLESIAS LVN : 1950 Requested By: AYDE PEREZ Order Number: [id number] Reading MD: Measurements Intervals [place] Rate: 83 P: 85 VA: 186 QRS: 64 QRSD: 103 T: 131 QT: 424 QTc: 499 Interpretive Statements Sinus rhythm LVH with secondary repolarization abnormality Anterior ST elevation, probably due to LVH Borderline prolonged QT interval Please click the below link to view image of tracing.
--- NOTE | 2025-03-18 07:38 | ECG ---
[facility] Test Date: 2025-03-16 Test Time: 17:21:41 Pat Name: MAXIMUS MAR Department: Respiratoy Room: 0295T A Gender: M Tax Assistant: DERREK IGLESIAS LVN : 1950 Requested By: AYDE PEREZ Order Number: [id number] Reading MD: Measurements Intervals [place] Rate: 81 P: 88 AL: 184 QRS: 58 QRSD: 107 T: 115 QT: 477 QTc: 554 Interpretive Statements Sinus rhythm LVH with secondary repolarization abnormality Anterior ST elevation, probably due to LVH Prolonged QT interval Please click the below link to view image of tracing.
== END 2025-03-17 17:44 | disposition home or self-care (01) | DRG 280 ==
LOC: EDBD 12:29 → ER 12:29 → OVERFLOW 19:34 → TELE-WESTW 03-15 21:25
PROVIDERS: ADMIT Internal Medicine; ATTEND Internal Medicine
PROC: 5A09357 Assistance with Respiratory Ventilation, Less than 24 Consecutive Hours, Continuous Positive Airway Pressure (ICD-10-PCS; 2025-03-14)
PROC: 5A1D70Z Performance of Urinary Filtration, Intermittent, Less than 6 Hours Per Day (ICD-10-PCS; principal; 2025-03-15)
PROC: 5A1D70Z Performance of Urinary Filtration, Intermittent, Less than 6 Hours Per Day (ICD-10-PCS; 2025-03-16)
DX: I21.4 Non-ST elevation (NSTEMI) myocardial infarction (principal); I50.23 Acute on chronic systolic (congestive) heart failure; J96.21 Acute and chronic respiratory failure with hypoxia; N18.6 End stage renal disease; R65.11 Systemic inflammatory response syndrome (SIRS) of non-infectious origin with acute organ dysfunction; I13.2 Hypertensive heart and chronic kidney disease with heart failure and with stage 5 chronic kidney disease, or end stage renal disease; I47.20 Ventricular tachycardia, unspecified; E87.5 Hyperkalemia; E11.22 Type 2 diabetes mellitus with diabetic chronic kidney disease; I25.10 Atherosclerotic heart disease of native coronary artery without angina pectoris; N40.0 Benign prostatic hyperplasia without lower urinary tract symptoms; J44.9 Chronic obstructive pulmonary disease, unspecified; E78.5 Hyperlipidemia, unspecified; I25.5 Ischemic cardiomyopathy; K80.20 Calculus of gallbladder without cholecystitis without obstruction; Z79.82 Long term (current) use of aspirin; Z79.899 Other long term (current) drug therapy; Z99.81 Dependence on supplemental oxygen; Z95.1 Presence of aortocoronary bypass graft; Z79.02 Long term (current) use of antithrombotics/antiplatelets; Z98.61 Coronary angioplasty status; Z91.148 Patient's other noncompliance with medication regimen for other reason; Z91.158 Patient's noncompliance with renal dialysis for other reason; Z95.810 Presence of automatic (implantable) cardiac defibrillator; Z99.2 Dependence on renal dialysis; Z90.5 Acquired absence of kidney
CPT/HCPCS: 36415; 36600; 71045; 80048; 80053; 81001; 82805; 82962; 83036; 83880; 84132; 84484; 85025; 86706; 87081; 87340; 90935; 93005; 94640; 94660; 96365; 99291; 99292; G0378; J1642; J1815

== ENCOUNTER 2025-03-22 03:06 | Inpatient (IN) | payer MEDICARE, MEDICAID ==
[~2025-03-22] VITALS: Ht 175.3 cm; Wt 70.9 kg
[2025-03-22] VITALS (14 sets, daily range): BP systolic 103–178; BP diastolic 33–99; PULSE 90–121; RESP 19–34; TEMP 97.7–98; O2SAT 90–100
[2025-03-22 04:30] LABS: Base Excess 1.7 mmol/L (-2.0-3.0)
[2025-03-22] MEDS: ALBUTEROL SULF 2.5 MG/0.5ML(0.5%) NEB SOLN NEB ONE ×2 (04:33→09:21)
[2025-03-22] MEDS: IPRATROPIUM BROM 0.5 MG/2.5ML INH SOL NEB ONE ×2 (04:33→09:22)
[2025-03-22] MEDS: IPRATROPIUM BROM 0.5 MG/2.5ML INH SOL ONE ×3 (04:47→16:56)
[2025-03-22] MEDS: ALBUTEROL SULF 2.5 MG/0.5ML(0.5%) NEB SOLN ONE ×3 (04:47→16:56)
--- NOTE | 2025-03-22 05:25 | DVH ---
CHEST RADIOGRAPH Indication: cp Technique: Single frontal view of the chest was obtained COMPARISON: XY CHEST PORTABLE on DOS: 03/14/25, XY CHEST PORTABLE on DOS: 02/20/25, US CHEST ULTRASOUND on DOS: 01/04/25, XY CHEST PORTABLE on DOS: 01/04/25, XY CHEST PORTABLE on DOS: 12/15/24 FINDINGS: Lines and Tubes: None. Right anterior chest wall cardiac pacing device. Lungs: Grossly stable appearing bilateral middle and lower lung zone pulmonary airspace disease with consolidative features. Stable appearing small left pleural effusion. No pneumothorax. Cardiomediastinal contours: Cardiomegaly status post median sternotomy. Bones: Unremarkable IMPRESSION: 1. Stable appearing bilateral middle and lower lung zone pulmonary airspace disease with consolidativ e features. 2. Stable appearing small left pleural effusion. 3. Cardiomegaly.
--- NOTE | 2025-03-22 05:31 | ED.PDOC ---
History of Present Illness HPI Comments 75-year-old male who is brought in by ambulance for chief complaint of shortness of breath. Significant history of COPD with home oxygen use. Patient endorses on sudden, unprovoked, atraumatic onset of difficulty breathing, which has been progressively worsening since 1830, yesterday. No relief or improvement with increase in O2 flow rate or asthma inhaler use. Denies any chest pain, cough, congestion, or further associated symptoms. REVIEW OF SYSTEMS: General: No fever, no chills, or fatigue HEENT: No sore throat, no earache, no congestion, no neck pain. Cardiac: No chest pain. No palpitations. Lungs: No shortness of breath, no cough. GI: No nausea, no vomiting, no diarrhea, no constipation, no abdominal pain : No dysuria, frequency, or urgency. No hematuria. Musculoskeletal: No joint pain , no joint swelling, no extremity edema. Skin: No rash, no itching. Neuro: No headache, no dizziness, no weakness PHYSICAL EXAM: General: Awake, alert and oriented. No acute distress. Skin: Skin in warm, dry and intact. Appropriate color for ethnicity. HEENT: The head is normocephalic and atraumatic. Conjunctivae are clear without exudates or hemorrhage. Sclera is non-icteric. EOM are intact. No signs of nystagmus. Eyelids are normal in appearance without swelling or lesions. Oral mucosa is pink and moist Neck: The neck is supple with normal range of motion. No JVD. Cardiac: Heart rate and rhythm are normal. No murmurs, gallops, or rubs are auscultated. Respiratory: Labored respirations, tachypneic, rales bilaterally. Abdominal: Abdomen is soft, non-tender without distention, guarding or rigidity. Bowel sounds are present and normoactive in all four quadrants. Extremities: Upper and lower extremities are atraumatic in appearance without deformity or edema. Neurological: The patient is awake, alert and oriented to person, place, and time with normal speech. Speech is clear. There is no facial asymmetry. Psychiatric: Appropriate mood and affect. Good judgement and insight. Chief Complaint: Shortness of Breath Time Seen by MD: 04:03 Primary Care Provider: UNKNOWN Allergies: Coded Allergies: NO KNOWN ALLERGIES (Unverified , 01/05/24) Home Meds Active Scripts Carvedilol (COREG) 12.5 Mg Tab, 12.5 MG PO BID for 30 Days, #60 TAB 0 Refills Prov:CHRISSIE THOMAS MD 02/23/25 Magnesium Oxide (MAGNESIUM OXIDE) 400 Mg Tab, 1 TAB PO BID, #60 TAB 1 Refill Prov:MAYNOR WEBB 01/06/25 Ipratropium [place] (Ipratropium [place]) 0.02 % Brittany, 0.5 % HHN QIDP for 30 Days, #90 ML 3 Refills Prov:CRAIG NAZARIO MD 12/17/24 Albuterol Sulfate (Albuterol Sulfate) 1.25 Mg/3 Ml Neb, 1.25 MG IN QIDP for 30 Days, #90 INH 2 Refills Prov:CRAIG NAZARIO MD 12/17/24 Reported Medications Magnesium Oxide (Magnesium Oxide) 400 Mg Tab, 1 TAB PO DAILY for 90 Days, #90 10/29/24 Meloxicam (Meloxicam) 15 Mg Tab, 1 TAB PO DAILY for 30 Days, #30 10/29/24 Nitroglycerin (Nitrostat) 0.4 Mg Sub, 1 TAB PO UD for 33 Days, #100 10/29/24 Atorvastatin Calcium (ATORVASTATIN CALCIUM) 40 Mg Tab, 1 TAB PO DAILY for 90 Days, #90 10/29/24 Isosorbide Mononitrate (Isosorbide Mononitrate Er) 30 Mg Tab, 1 TAB PO DAILY for 90 Days, #90 10/29/24 Clopidogrel Bisulfate (CLOPIDOGREL) 75 Mg Tab, 1 TAB PO DAILY for 90 Days, #90 10/29/24 Ranolazine (Ranolazine ER) 500 Mg Tab, 1 TAB PO BID for 30 Days, #60 10/29/24 Furosemide (Furosemide) 40 Mg Tab, 1 TAB PO DAILY for 90 Days, #90 01/07/24 Ergocalciferol (Vitamin D) 50,000 Unit Cap, 1 CAP PO QWEEKLY 01/07/24 Omeprazole (Omeprazole Dr) 40 Mg Cap, 1 CAP PO DAILY for 90 Days, #90 01/07/24 Aspirin (Aspirin Low Dose) 81 Mg Chw, 1 TAB PO DAILY 01/07/24 Sevelamer Carbonate (Renvela) 800 Mg Tab, 2 TAB PO TID 01/07/24 Oxycodone HCl (Oxycodone Hydrochloride) 15 Mg Tab, 1 TAB PO QID for 30 Days, #120 01/07/24 Information Source: Patient, Emergency Med Personnel Mode of Arrival: EMS Past Medical History PAST MEDICAL HISTORY: CHF, COPD, ESRD Surgical History: Pacemaker Family History Family History: Reviewed,noncontributory to illness, Unknown Social History Smoker: Non-Smoker Alcohol: Denies ETOH Use Drugs: Denies Drug Use Lives In: Home Was a procedure done? Was a procedure done?: No EKG EKG : Pulse Rate (adult): 104 [place]: Normal Cardiac Rhythm: ST Block: None Hypertrophy: None ST: Normal Differential Dx Considerations may include: Differential diagnoses considered includebut arenot limited to acute Bronchitis, Asthma, COPD, Pneumothorax, PE, CHF, Pulmonary HTN, Anemia, CO Poisoning, Methemoglobinemia, Hyperventilation, Metabolic Acidosis, Pulmonary Edema, Pneumonia, ACS, Pericardial Tamponade, Anxiety, other X-Ray, Labs, Meds, VS Vital Signs Date Time Temp Pulse Resp B/P (MAP) Pulse Ox O2 Delivery O2 Flow Rate FiO2 03/22/25 10:00 88 15 143/79 (100) 100 03/22/25 09:29 107 03/22/25 09:22 22 94 Nasal Cannula* 4 36 03/22/25 08:00 97.7 92 17 140/83 (102) 99 97.7 03/22/25 07:42 Nasal Cannula* 4 36 03/22/25 07:12 148/82 03/22/25 07:00 90 17 148/82 (104) 100 03/22/25 06:00 88 24 142/73 (96) 98 03/22/25 05:40 104 03/22/25 05:00 99 36 159/83 (108) 98 03/22/25 04:33 30 98 Nasal Cannula* 3 32 03/22/25 03:53 106 34 96 Nasal Cannula* 5 40 03/22/25 03:53 98.0 106 34 168/89 (115) 96 98.0 03/22/25 03:42 104 03/22/25 03:10 98.0 112 30 201/106 98 98.0 Lab Test 03/22/25 07:34 03/22/25 05:55 03/22/25 04:20 Range/Units Troponin I High Sensitivity 406 *H 238 *H </=54 ng/L White Blood Count 7.9 4.4-10.8 10^3/uL Red Blood Count 4.20 L 4.5-5.90 10^6/uL Hemoglobin 13.7 13.5-17.5 g/dL Hematocrit 40.5 #L 41.0-53.0 % Mean Corpuscular Volume 96.6 80.0-100.0 fL Mean Corpuscular Hemoglobin 32.7 H 28.0-32.0 pg Mean Corpuscular Hemoglobin Concent 33.9 32.0-36.0 g/dL Red Cell Distribution Width 16.2 H 11.8-14.3 % Platelet Count 132 L 140-450 10^3/uL Mean Platelet Volume 7.9 6.9-10.8 fL Neutrophils (%) (Auto) 77.4 37.0-80.0 % Lymphocytes (%) (Auto) 8.3 L 10.0-50.0 % Monocytes (%) (Auto) 12.7 H 0.0-12.0 % Eosinophils (%) (Auto) 1.3 0.0-7.0 % Basophils (%) (Auto) 0.3 0.0-2.0 % Neutrophils # (Auto) 6.2 1.6-8.6 10 ^3/uL Lymphocytes # (Auto) 0.7 0.4-5.4 10 ^3/uL Monocytes # (Auto) 1.0 0-1.3 10 ^3/uL Eosinophils # (Auto) 0.1 0-0.8 10 ^3/uL Basophils # (Auto) 0 0-0.2 10 ^3/uL Nucleated Red Blood Cells 0.1 % Sodium Level 139 136-145 mmol/L Potassium Level 4.8 3.5-5.1 mmol/L Chloride Level 93 L 98-107 mmol/L Carbon Dioxide Level 26 20-31 mmol/L Anion Gap 20 H 5-15 Blood Urea Nitrogen 69 H 9-23 mg/dL Creatinine 10.18 *H 0.700-1.30 mg/dL Glomerular Filtration Rate Calc 5 >90 mL/min BUN/Creatinine Ratio 6.8 L 10.0-20.0 Serum Glucose 140 H 74-106 mg/dL Calcium Level 9.6 8.7-10.4 mg/dL B-Type Natriuretic Peptide 4918.43 0-100 pg/mL Blood Gas Specimen Type Arterial Blood Gas Sample Site Right radial Blood Gas Patient Temperature 37.0 Arterial Blood Date Drawn [id number] Arterial Blood pH 7.397 7.350-7.450 Arterial Blood Partial Pressure CO2 44.8 35.0-48.0 mmHg Arterial Blood Partial Pressure O2 84.4 83.0-108.0 mmHg Arterial Blood HCO3 26.9 21.0-28.0 mmol/L Arterial Blood Oxygen Saturation 95.1 94.0-98.0 % Arterial Blood Base Excess 1.7 -2.0-3.0 mmol/L Arterial Blood Oxyhemoglobin 94.2 94.0-98.0 % Arterial Blood Carboxyhemoglobin 0.4 L 0.5-1.5 % Arterial Blood Methemoglobin 0.5 0.0-1.5 % Max Test Yes Blood Gas Total Hemoglobin 12.60 L 13.5-17.5 g/dL Blood Gas Liter Flow 3.00 Blood Gas Modality Nasal cannula FiO2 % 32.0 Current Medications Medications (Trade) Dose Ordered Sig/Edson Route Start Time Stop Time Status Last Admin Furosemide (Lasix Injection) 40 mg ONCE ONCE IV 03/22/25 05:30 03/22/25 05:35 DC 03/22/25 07:12 Enoxaparin Sodium (Lovenox) 80 mg ONCE ONCE SC 03/22/25 07:30 03/22/25 07:31 DC 03/22/25 08:03 Albuterol (Ventolin Medneb) 5 mg ONCE ONCE NEB 03/22/25 09:15 03/22/25 09:16 DC 03/22/25 09:21 Ipratropium [place] (Atrovent Medneb) 0.5 mg ONCE ONCE NEB 03/22/25 09:15 03/22/25 09:16 DC 03/22/25 09:[address] [address] Ph: [phone] DIAGNOSTIC IMAGING Diagnostic Imaging Report : [id number] Signed PATIENT: MAXIMUS MAR JR ACCT: [id number] UNIT: [id number] : 1950 LOC: ER ROOM / BED: / AGE / SEX: 75 / M ADM STATUS: REG ER SERVICE DT: [id number] ORDERING PHYSICIAN: KRISTI SELLERS MD PROCEDURE(s): CXR1 - CHEST XRAY 1 VIEW REASON: cp ORDER NUMBER(s): [id number], ACCESSION NUMBER(s): [id number] CHEST RADIOGRAPH Indication: cp Technique: Single frontal view of the chest was obtained COMPARISON: XY CHEST PORTABLE on DOS: 03/14/25, XY CHEST PORTABLE on DOS: 02/20/25, US CHEST ULTRASOUND on DOS: 01/04/25, XY CHEST PORTABLE on DOS: 01/04/25, XY CHEST PORTABLE on DOS: 12/15/24 FINDINGS: Lines and Tubes: None. Right anterior chest wall cardiac pacing device. Lungs: Grossly stable appearing bilateral middle and lower lung zone pulmonary airspace disease with consolidative features. Stable appearing small left pleural effusion. No pneumothorax. Cardiomediastinal contours: Cardiomegaly status post median sternotomy. Bones: Unremarkable IMPRESSION: 1. Stable appearing bilateral middle and lower lung zone pulmonary airspace disease with consolidative features. 2. Stable appearing small left pleural effusion. 3. Cardiomegaly. ATED BY: FELIBERTO CHAVEZ MD DICTATED DATE/TIME: 03/22/25522 SIGNED BY: FELIBERTO CHAVEZ MD SIGNED DATE/TIME: 03/22/25522 Time of 1ST Reevaluation: 04:33 Reevaluation 1ST: Unchanged Patient Education/Counseling: Treatment Family Education/Counseling: No Family Present SEPSIS Sepsis Screen Date sepsis recognized/suspect: Mar 22, 2025 Time Sepsis recognized/suspect: 035 Recent Procedure: No On Antibiotic Therapy: Yes Respiratory Rate >20: Yes Heart Rate >90: Yes Temp<36 C (96.8 F) or >38.3 C: No SBP <90 or MAP <65 mmHG: No New Acute Mental Status Change: No Is the patient on CPAP, BIPAP,: No Physician Orders Abg W/ Co-Ox (03/22/25 04:10) Chest Xray 1 View (03/22/25 04:25) Saline Lock (03/22/25 04:25) Application Development Intern (03/22/25 ) *Dr. Mariel Menendez -Da Eleni (03/22/25 09:15) Vital Signs Date Time Temp Pulse Resp B/P (MAP) Pulse Ox O2 Delivery O2 Flow Rate FiO2 03/22/25 10:00 88 15 143/79 (100) 100 03/22/25 09:29 107 03/22/25 09:22 22 94 Nasal Cannula* 4 36 03/22/25 08:00 97.7 92 17 140/83 (102) 99 97.7 03/22/25 07:42 Nasal Cannula* 4 36 03/22/25 07:12 148/82 03/22/25 07:00 90 17 148/82 (104) 100 03/22/25 06:00 88 24 142/73 (96) 98 03/22/25 05:40 104 03/22/25 05:00 99 36 159/83 (108) 98 03/22/25 04:33 30 98 Nasal Cannula* 3 32 03/22/25 03:53 106 34 96 Nasal Cannula* 5 40 03/22/25 03:53 98.0 106 34 168/89 (115) 96 98.0 03/22/25 03:42 104 03/22/25 03:10 98.0 112 30 201/106 98 98.0 Laboratory Tests Test 03/22/25 05:55 White Blood Count 7.9 10^3/uL (4.4-10.8) Departure 1 Departure Time of Disposition: 05:31 Impression: Primary Impression: CHF exacerbation Disposition: ADMITTED INPATIENT Condition: Guarded Comments 75-year-old male who presents with shortness of breath and increased oxygen requirement. Patient admitted to hospitalist service for further treatment, evaluation and monitoring. MDM: Extensive evaluation was performed in attempt to identify or rule out: (See differential diagnosis section) The following tests were ordered, and results were reviewed by me and discussed with patient: (See diagnostic results section) The following test were independently interpreted by me: BECAME DUE I reviewed and agreed with the following test results read by other providers: Chest x-ray Decision regarding hospitalization or escalation of hospital level of care: Risk and benefits of admission for further treatment of patient's condition was considered. Due to patient's current clinical condition, high risk of decline and poor outcome if discharged and need for further inpatient management and monitoring, patient will be admitted to the hospital. Critical Care Note Critical Care Time?: No Stability Stability form required: No Heart Score Heart Score: Heart Score Response (Comments) Value History Moderate Suspicious 1 EKG Normal 0 Age >65 2 Risk Factors >3 or Hx ASHD 2 Troponin N/A 0 Total 5 I personally scribed for KRISTI SELLERS MD ([email or web address]) on 03/22/25 at 05:40. E lectronically submitted by Gabino Uriostegui ([email or web address]). KRISTI SELLERS MD Mar 22, 2025 05:31
[2025-03-22 06:44] LABS: Hematocrit 40.5 % (41.0-53.0); Hemoglobin 13.7 g/dL (13.5-17.5); Mean Corpuscular Hemoglobin 32.7 pg (28.0-32.0); Mean Corpuscular Volume 96.6 fL (80.0-100.0); Nucleated Red Blood Cells % 0.1 %
[2025-03-22 06:47] LABS: Potassium 4.8 mmol/L (3.5-5.1); Sodium 139 mmol/L (136-145)
[2025-03-22 06:48] LABS: Anion Gap 20 (5-15); Carbon Dioxide 26 mmol/L (20-31)
[2025-03-22 06:49] LABS: Calcium 9.6 mg/dL (8.7-10.4)
[2025-03-22 06:53] LABS: BUN/Creatinine Ratio 6.8 (10.0-20.0)
[2025-03-22 06:59] LABS: Blood Urea Nitrogen 69 mg/dL (9-23); Chloride 93 mmol/L (98-107); Glucose 140 mg/dL (74-106)
[2025-03-22] MEDS: FUROSEMIDE 40 MG/4 ML VIAL IV ONE (07:12)
[2025-03-22] MEDS: ENOXAPARIN SOD 80 MG/0.8ML SYRINGE SC ONE (08:03)
--- NOTE | 2025-03-22 08:22 | ECG ---
[facility] Test Date: 2025-03-22 Test Time: 03:42:45 Pat Name: MAXIMUS MAR Department: Room: 0266 Gender: M Manager School: : 1950 Requested By: EMERGENCY EMERGENCY Order Number: [id number] Reading MD: Armaan Cardona Measurements Intervals [place] Rate: 104 P: 99 AR: 173 QRS: 44 QRSD: 114 T: 124 QT: 352 QTc: 463 Interpretive Statements Sinus tachycardia Multiple ventricular premature complexes LVH with secondary repolarization abnormality Anterior Q waves, possibly due to LVH Electronically Signed On 03-24-2025 9:52:08 PDT by Armaan Cardona Please click the below link to view image of tracing.
[2025-03-22] MEDS: CLOPIDOGREL BISULFATE 75 MG TAB PO ONE (10:15)
--- NOTE | 2025-03-22 10:58 | DVHHPRES ---
History of Present Illness Resident Creating Document: JHPARTHBOUCHRA RESIDENT History of Present Illness Patient is a 75-year-old male with a medical history of end-stage renal disease on dialysis in the last 2 years, ischemic cardiomyopathy s/p stent to LCX and RCA, s/p AICD placement, hypertension presented to the hospital last night with a chief complaint of worsening shortness of breath. Patient was recently discharged from the hospital and underwent dialysis on and Saturday at [facility] dialysis, but usually gets dialysis on Saturday and Saturday but since the patient had to go out on the weekend he missed the dialysis on Saturday. Saturday evening patient has started to have worsening shortness of breath following which EMS were called. At home patient is on 2 L oxygen at home. Patient did not have any chest pain, fever, chills, no cough or phlegm. Past Medical History end-stage renal disease on dialysis in the last 2 years, ischemic cardiomyopathy s/p stent to LCX and RCA, s/p AICD placement, hypertension Past Surgical History Left upper arm AV fistula for dialysis access Family History: None Past Social History Denies smoking, alcohol, drug use and lives with his Home medications: Aspirin 81 once daily, carvedilol 12.5 b.i.d., atorvastatin 40 once daily, furosemide 40 mg daily, isosorbide mononitrate 30 mg daily, omeprazole 40 mg daily, ranolazine 500 mg b.i.d., sevelamer 1600 mg t.i.d, losartan 25 mg twice daily Review of Systems Review of Systems Patient reported feeling short of breath currently on 5 L oxygen via nasal cannula No chest pain, cough, chills, headache, abdominal pain, diarrhea, nausea or vomiting Allergies: Coded Allergies: NO KNOWN ALLERGIES (Unverified , 01/05/24) Medications Current Medications Medications Dose Ordered Sig/Edson Route Start Time Stop Time Status Last Admin Dose Admin Aspirin 81 mg DAILY PO 03/23/25 10:00 UNV Clopidogrel Bisulfate 75 mg DAILY PO 03/23/25 10:00 UNV Carvedilol 12.5 mg Q12HR PO 03/22/25 22:00 UNV Pantoprazole Sodium 40 mg DAILY IV 03/23/25 10:00 UNV Albuterol 2.5 mg Q8HR NEB 03/22/25 14:00 UNV Ipratropium [place] 0.5 mg Q8HR NEB 03/22/25 14:00 UNV Exam Vital Signs Vital Signs Date Time Temp Pulse Resp B/P (MAP) Pulse Ox O2 Delivery O2 Flow Rate FiO2 03/22/25 10:33 97.7 107 22 140/83 94 4.5 38 97.7 03/22/25 09:22 Nasal Cannula* Exam Gen - no pallor, no icterus, no cyanosis, no LAD, no edema . Skin - Patients skin is warm and dry. HEENT - normocephalic, atraumatic, moist mucous membranes. Neck - full ROM, no LAD, no JVD Pulmonary - B/L decreased breath sounds with diffuse coarse crackles, no wheezing, no stridor. cardiovascular - regular S1,S2 heard, no added sounds, no murmurs heard. GI - soft, nontender abdomen. no hepatospleenomegaly. Bowel sounds normoactive Neurological - Patient is A/O X 3 . Bilateral upper extremity strength 4/5, bilateral lower extremity strength 4/5, no facial droop, normal speech, no tremor, no sensory deficiets. Labs/Xrays Labs Test 03/22/25 10:07 03/22/25 05:55 03/22/25 04:20 Range/Units Troponin I High Sensitivity 351 *H </=54 ng/L White Blood Count 7.9 4.4-10.8 10^3/uL Red Blood Count 4.20 L 4.5-5.90 10^6/uL Hemoglobin 13.7 13.5-17.5 g/dL Hematocrit 40.5 #L 41.0-53.0 % Mean Corpuscular Volume 96.6 80.0-100.0 fL Mean Corpuscular Hemoglobin 32.7 H 28.0-32.0 pg Mean Corpuscular Hemoglobin Concent 33.9 32.0-36.0 g/dL Red Cell Distribution Width 16.2 H 11.8-14.3 % Platelet Count 132 L 140-450 10^3/uL Mean Platelet Volume 7.9 6.9-10.8 fL Neutrophils (%) (Auto) 77.4 37.0-80.0 % Lymphocytes (%) (Auto) 8.3 L 10.0-50.0 % Monocytes (%) (Auto) 12.7 H 0.0-12.0 % Eosinophils (%) (Auto) 1.3 0.0-7.0 % Basophils (%) (Auto) 0.3 0.0-2.0 % Neutrophils # (Auto) 6.2 1.6-8.6 10 ^3/uL Lymphocytes # (Auto) 0.7 0.4-5.4 10 ^3/uL Monocytes # (Auto) 1.0 0-1.3 10 ^3/uL Eosinophils # (Auto) 0.1 0-0.8 10 ^3/uL Basophils # (Auto) 0 0-0.2 10 ^3/uL Nucleated Red Blood Cells 0.1 % Sodium Level 139 136-145 mmol/L Potassium Level 4.8 3.5-5.1 mmol/L Chloride Level 93 L 98-107 mmol/L Carbon Dioxide Level 26 20-31 mmol/L Anion Gap 20 H 5-15 Blood Urea Nitrogen 69 H 9-23 mg/dL Creatinine 10.18 *H 0.700-1.30 mg/dL Glomerular Filtration Rate Calc 5 >90 mL/min BUN/Creatinine Ratio 6.8 L 10.0-20.0 Serum Glucose 140 H 74-106 mg/dL Calcium Level 9.6 8.7-10.4 mg/dL B-Type Natriuretic Peptide 4918.43 0-100 pg/mL Blood Gas Specimen Type Arterial Blood Gas Sample Site Right radial Blood Gas Patient Temperature 37.0 Arterial Blood Date Drawn [id number] Arterial Blood pH 7.397 7.350-7.450 Arterial Blood Partial Pressure CO2 44.8 35.0-48.0 mmHg Arterial Blood Partial Pressure O2 84.4 83.0-108.0 mmHg Arterial Blood HCO3 26.9 21.0-28.0 mmol/L Arterial Blood Oxygen Saturation 95.1 94.0-98.0 % Arterial Blood Base Excess 1.7 -2.0-3.0 mmol/L Arterial Blood Oxyhemoglobin 94.2 94.0-98.0 % Arterial Blood Carboxyhemoglobin 0.4 L 0.5-1.5 % Arterial Blood Methemoglobin 0.5 0.0-1.5 % Max Test Yes Blood Gas Total Hemoglobin 12.60 L 13.5-17.5 g/dL Blood Gas Liter Flow 3.00 Blood Gas Modality Nasal cannula FiO2 % 32.0 SEPSIS Sepsis Screen Date sepsis recognized/suspect: Mar 22, 2025 Time Sepsis recognized/suspect: 356 Recent Procedure: No On Antibiotic Therapy: Yes Respiratory Rate >20: Yes Heart Rate >90: Yes Temp<36 C (96.8 F) or >38.3 C: No SBP <90 or MAP <65 mmHG: No New Acute Mental Status Change: No Is the patient on CPAP, BIPAP,: No Physician Orders Abg W/ Co-Ox (03/22/25 04:10) Chest Xray 1 View (03/22/25 04:25) Vital Signs Q1HR (03/22/25 04:25) Saline Lock (03/22/25 04:25) Product Safety Tester (03/22/25 ) *Dr. Mariel Menendez -Da Eleni (03/22/25 09:15) Admit (03/22/25 10:06) Respiratory Culture W/ Gs (03/22/25 10:06) Aspirin Tablet (03/23/25 10:00) Aspirin Tablet (03/22/25 10:15) Clopidogrel Bisulfate (Plavix) (03/23/25 10:00) Clopidogrel Bisulfate (Plavix) (03/22/25 10:15) Carvedilol Tablet (Coreg Tablet) (03/22/25 22:00) Pantoprazole (Protonix) (03/22/25 10:15) Pantoprazole (Protonix) (03/23/25 10:00) Albuterol Medneb (Ventolin Medneb) (03/22/25 14:00) Ipratropium Medneb (Atrovent Medneb) (03/22/25 14:00) Full Code (03/22/25 10:06) Renal Standard(2gna,3gk,Lopho) (03/22/25 Lunch) Phosphorus (03/22/25 10:06) Magnesium (03/22/25 10:06) Vital Signs Date Time Temp Pulse Resp B/P (MAP) Pulse Ox O2 Delivery O2 Flow Rate FiO2 03/22/25 10:33 97.7 107 22 140/83 94 4.5 38 97.7 03/22/25 10:00 88 15 143/79 (100) 100 03/22/25 09:29 107 03/22/25 09:22 22 94 Nasal Cannula* 4 36 03/22/25 08:00 97.7 92 17 140/83 (102) 99 97.7 03/22/25 07:42 Nasal Cannula* 4 36 03/22/25 07:12 148/82 03/22/25 07:00 90 17 148/82 (104) 100 03/22/25 06:00 88 24 142/73 (96) 98 03/22/25 05:40 104 03/22/25 05:00 99 36 159/83 (108) 98 03/22/25 04:33 30 98 Nasal Cannula* 3 32 03/22/25 03:53 106 34 96 Nasal Cannula* 5 40 03/22/25 03:53 98.0 106 34 168/89 (115) 96 98.0 03/22/25 03:42 104 03/22/25 03:10 98.0 112 30 201/106 98 98.0 Laboratory Tests Test 03/22/25 05:55 White Blood Count 7.9 10^3/uL (4.4-10.8) Medications Medications Dose Ordered Sig/Edson Route Start Time Stop Time Status Last Admin Dose Admin Albuterol 2.5 mg ONCE ONCE NEB 03/22/25 04:15 03/22/25 04:16 DC 03/22/25 04:33 2.5 MG Albuterol 5 mg ONCE ONCE NEB 03/22/25 09:15 03/22/25 09:16 DC 03/22/25 09:21 5 MG Enoxaparin Sodium 80 mg ONCE ONCE SC 03/22/25 07:30 03/22/25 07:31 DC 03/22/25 08:03 80 MG Furosemide 40 mg ONCE ONCE IV 03/22/25 05:30 03/22/25 05:35 DC 03/22/25 07:12 40 MG Ipratropium [place] 0.5 mg ONCE ONCE NEB 03/22/25 04:15 03/22/25 04:16 DC 03/22/25 04:33 0.5 MG Ipratropium [place] 0.5 mg ONCE ONCE NEB 03/22/25 09:15 03/22/25 09:16 DC 03/22/25 09:22 0.5 MG Assessment/Plan Assessment/Plan Respiratory Acute on chronic hypoxic respiratory failure Bilateral pulmonary edema Possible left lower lobe pneumonia due to gram +/- bacteria - chest x-ray shows bilateral pulmonary edema with possible left lower lobe consolidation - ABG compensated - patient makes minimal urine as he has ESRD, Bumex 2 mg IV once given - respiratory culture pending - ceftriaxone and vancomycin per pharmacy - duo nebs q.8 hours - with the patient has difficulty breathing and increased work of breathing, BiPAP will be initiated Cardiovascular NSTEMI likely type 2 from demand ischemia Acute exacerbation of heart failure with reduced ejection fraction Hypertensive heart disease with heart failure Ischemic cardiomyopathy s/p stent S/p AICD - ECG reviewed showed sinus tachycardia with a PVCs, LVH, Q-wave in inferior leads, ST depression and T wave inversions in lateral leads - echo from February 2025 showed LVEF 35-40% - carvedilol 12.5 b.i.d. - Bumex 2 mg IV - nephrology consult for dialysis - continued on aspirin and Plavix Nephrology End-stage renal disease on dialysis, TTS, missed dialysis on saturday - nephrology consultation - monitor electrolytes , potassium, magnesium, phosphorus Hematology Thrombocytopenia - platelet count at 132 DVT prophylaxis: Heparin PUD prophylaxis: Protonix Goals of care discussed with the patient. Full code Time spent: 33 minutes Plan discussed with Dr. Perez Plan discussed with: Patient My Orders Orders - BOUCHRA STEINER RESIDENT Procedure Category Date Status Time Admit ADMIT 03/22/25 Transmitted 10:06 Respiratory Culture MARU 03/22/25 Logged W/ Gs 10:06 Aspirin Tablet PHA 03/23/25 Logged 10:00 Aspirin Tablet PHA 03/22/25 Logged 10:15 Clopidogrel Bisulfate PHA 03/23/25 Logged (Plavix) 10:00 Clopidogrel Bisulfate PHA 03/22/25 Logged (Plavix) 10:15 Carvedilol Tablet PHA 03/22/25 Logged (Coreg Tablet) 22:00 Pantoprazole PHA 03/22/25 Logged (Protonix) 10:15 Pantoprazole PHA 03/23/25 Logged (Protonix) 10:00 Albuterol Medneb PHA 03/22/25 Logged (Ventolin Medneb) 14:00 Ipratropium Medneb PHA 03/22/25 Logged (Atrovent Medneb) 14:00 Full Code RADHA 03/22/25 In Process 10:06 Renal DIET 03/22/25 Transmitted Standard(2gna,3gk,Lopho) Lunch Phosphorus LAB 03/22/25 Logged 10:06 Magnesium LAB 03/22/25 Logged 10:06 Date of Service: Mar 22, 2025 Billing Provider: AYDE PEREZ MD Common Visit Codes: [id number] INP/OBS CARE (HIGH) Secondary Visit Codes: [id number] CARE PLAN 30 MINUTES BOUCHRA STEINER RESIDENT Mar 22, 2025 10:58
[2025-03-22] MEDS: PANTOPRAZOLE 40 MG/10 ML VIAL INJ IV ONE (11:29)
[2025-03-22] MEDS ORDERED: VANCOMYCIN PER PHARMACY 0 MG IV SCH (12:00)
[2025-03-22 12:01] LABS: Magnesium 1.4 mg/dL (1.6-2.6)
[2025-03-22] MEDS: ALBUTEROL SULF 2.5 MG/0.5ML(0.5%) NEB SOLN NEB SCH (13:15)
[2025-03-22] MEDS: IPRATROPIUM BROM 0.5 MG/2.5ML INH SOL NEB SCH (13:15)
[2025-03-22] MEDS: BUMETANIDE 2.5mg/10ml (0.25 mg/ml) INJ IV ONE ×2 (13:15→18:15)
[2025-03-22 14:52] LABS: Base Excess -2.2 mmol/L (-2.0-3.0)
[2025-03-22] MEDS: MAGNESIUM SULFATE 1GM/100ML 100 ML IV ONE ×2 (15:07→16:41)
[2025-03-22 16:02] LABS: COVID19 ANTIGEN SOFIA FIA NEGATIVE (NEGATIVE)
[2025-03-22] MEDS: VANCOMYCIN 1GM/250ML KIT 0 ML IV ONE (16:40)
[2025-03-22] MEDS: VANCOMYCIN 1.25GM/250ML 250 ML IV ONE (16:41)
[2025-03-22] MEDS: SODIUM CHL 0.9% 1000 ML BAG XX ONE (19:15)
[2025-03-22] MEDS: CARVEDILOL 12.5 MG TAB PO SCH (21:51)
[2025-03-22] MEDS: HEPARIN SODIUM (PORCINE) 5000 UNITS/ML 1ML VIAL SC SCH (21:51)
[2025-03-23] VITALS (78 sets, daily range): BP systolic 107–185; BP diastolic 31–98; PULSE 73–99; RESP 14–35; TEMP 98–99; O2SAT 78–100
[2025-03-23] MEDS: ACETAMINOPHEN 325 MG TAB PO PRN (00:45)
[2025-03-23] MEDS: ACETAMINOPHEN 325 MG TAB PO ONE (00:49)
--- NOTE | 2025-03-23 06:29 | DVH ---
CHEST RADIOGRAPH Indication: SOB Technique: Single frontal view of the chest was obtained Comparison: XY CHEST XRAY 1 VIEW on DOS: 03/22/25 FINDINGS: Lines and Tubes: AICD/pacemaker. Lungs: Diffuse bilateral airspace disease compatible with edema or pneumonia. Pleura: Left pleural effusion is unchanged. No pneumothorax. Cardiomediastinal contours: Unremarkable Bones: No acute osseous abnormality. Status post median sternotomy. IMPRESSION: 1. Diffuse bilateral airspace disease compatible with edema or pneumonia. 2. Unchanged left pleural effusion.
[2025-03-23] MEDS: SODIUM CHL 0.9% 1000 ML BAG XX ONE (07:00)
[2025-03-23 10:35] LABS: Potassium 4.9 mmol/L (3.5-5.1); Sodium 137 mmol/L (136-145)
[2025-03-23 10:36] LABS: Anion Gap 18 (5-15); Carbon Dioxide 25 mmol/L (20-31)
[2025-03-23 10:41] LABS: BUN/Creatinine Ratio 8.8 (10.0-20.0); Glucose 97 mg/dL (74-106)
[2025-03-23 10:53] LABS: Blood Urea Nitrogen 89 mg/dL (9-23); Calcium 8.2 mg/dL (8.7-10.4); Chloride 94 mmol/L (98-107)
[2025-03-23 10:56] LABS: Hematocrit 31.4 % (41.0-53.0); Hemoglobin 10.9 g/dL (13.5-17.5); Mean Corpuscular Hemoglobin 34.5 pg (28.0-32.0); Mean Corpuscular Volume 99.3 fL (80.0-100.0); Nucleated Red Blood Cells % 0.0 %
[2025-03-23] MEDS ORDERED: VANCOMYCIN 500mg/100mL 100 ML IV ONE (11:30)
--- NOTE | 2025-03-23 13:20 | DVHPN2 ---
Progress Note Date Seen: Mar 23, 2025 Medical Necessity Reason Pt with a Central, PICC or Fol: No Subjective Patient reports: No new complaints Review of Systems: HEENT:Normal, CVS:Normal, RESPIRATORY:Normal, GI:Normal, :Normal, MSK:Normal, NEURO:Normal Objective vital signs Vital Sign Date Time Temp Pulse Resp B/P (MAP) Pulse Ox O2 Delivery O2 Flow Rate FiO2 03/23/25 12:13 92 143/98 99 Facial BiPAP Mask 30 03/23/25 11:00 33 03/23/25 08:00 99.0 99.0 03/23/25 08:00 0 Total Intake and Output 03/22/25 03/22/25 03/23/25 15:00 23:00 07:00 Intake Total 150 ml Output Total 0 ml Balance 150 ml medications Current Medications Medications Dose Ordered Sig/Edson Route Start Time Stop Time Status Last Admin Dose Admin Aspirin 81 mg DAILY PO 03/23/25 10:00 Clopidogrel Bisulfate 75 mg DAILY PO 03/23/25 10:00 Carvedilol 12.5 mg Q12HR PO 03/22/25 22:00 03/22/25 21:51 12.5 MG Pantoprazole Sodium 40 mg DAILY IV 03/23/25 10:00 Albuterol 2.5 mg Q8HR NEB 03/22/25 14:00 03/23/25 06:32 2.5 MG Ipratropium [place] 0.5 mg Q8HR NEB 03/22/25 14:00 03/23/25 06:32 0.5 MG Vancomycin HCl 0 ml @ 0 mls/hr UD IV 03/22/25 12:00 Ceftriaxone Sodium 50 ml @ 100 mls/hr DAILY@09 IV 03/23/25 09:00 Heparin Sodium (Porcine) 5,000 units Q12HR SC 03/22/25 22:00 03/22/25 21:51 5,000 UNITS Acetaminophen 650 mg Q6HP PRN PO 03/23/25 00:45 03/23/25 00:45 650 MG Examination: GENERAL:Normal, HEENT:Normal, NECK:Normal, LUNGS:Normal, LUNGS:Abnormal (on bipap), CVS:Normal, ABDOMEN:Normal, MSK:Normal, SKIN:Normal, NEURO:Normal, :Normal laboratory and microbiology Laboratory Tests 9/16/25 10:13 Test 03/23/25 10:13 Range/Units Serum Glucose 97 74-106 mg/dL Problem List/Assessment/Plan Problem List/Assessment/Plan * Acute respiratory failure: on bipap * Acute on chronic systolic heart failure: dialysis * End-stage renal disease on hemodialysis. * Coronary artery disease with previous stent. * History of CABG. * COPD with exacerbation. * Anemia. * s/p aicd * Diabetes mellitus. * History of hepatitis C. * Non-ST elevation DC: type 2 *thrombocytopenia Plan discussed with: Patient Critical Care Time (mins): 41 (critical care time excluding procedures is 41 mins) Date of Service: Mar 23, 2025 Billing Provider: CRAIG NAZARIO MD Common Visit Codes: [id number] CARE 30-74 MIN CRAIG NAZARIO MD Mar 23, 2025 13:20
[2025-03-23] MEDS: PANTOPRAZOLE 40 MG/10 ML VIAL INJ IV SCH (14:44)
[2025-03-23] MEDS: CLOPIDOGREL BISULFATE 75 MG TAB PO SCH (14:45)
[2025-03-23] MEDS: ISOSORBIDE MONONITRATE ER 60 MG TAB PO ONE (14:47)
--- NOTE | 2025-03-23 16:13 | DVHINCON2 ---
DATE OF CONSULTATION: 03/23/2025 CONSULTING PHYSICIAN: Jose Lucas MD REASON FOR CONSULTATION: Management of dialysis. HISTORY OF PRESENT ILLNESS: The patient is a 75-year-old -[place] gentleman who is well known to me. He has been admitted to this hospital multiple times over the last several months. He came back to the hospital yesterday complaining of shortness of breath. He had received 2 [id number] dialysis treatments in the outpatient clinic last and Saturday. Over the weekend, he developed apparently fluid overload. He came to the hospital complaining of shortness of breath yesterday. Yesterday, he felt that he was breathing better when he was put on oxygen. His potassium was normal. I was called to arrange for him to have dialysis. The patient was dialyzed earlier today, 3 liters of fluid were removed. He is feeling much better. At this point, he does not have any other symptoms or complaints. For details on his past medical history and medications, please refer to the multiple recent consultations. PHYSICAL EXAMINATION: VITAL SIGNS: Blood pressure is 140/98, heart rate 91, respirations 20, temperature 98. GENERAL: The patient is in no acute distress, alert and oriented x3. HEENT: Unremarkable. NECK: No jugular venous distention. LUNGS: Show good air entry at the bases. No crackles. CARDIOVASCULAR: Shows regular rate with an S4 gallop. ABDOMEN: Soft, nontender. No organomegaly. No ascites. SKIN: Show no clubbing, cyanosis or edema. LABORATORY FINDINGS: Hemoglobin is 10.9, white blood cell count 4.9. Sodium is 137, potassium 4.9, creatinine 10, this was before dialysis today. ASSESSMENT AND PLAN: * End-stage renal disease. * No electrolyte imbalances. * Mild fluid overload with uncontrolled hypertension, both improved after dialysis. * Anemia of renal disease. Hemoglobin is at target range. The patient could be discharged home if there are no contraindications. Continue dialysis as an outpatient. Thank you for the consultation. MD ERICA Zacarias/ANDREAS TID: [id number] RECEIPT: [id number]
[2025-03-23] MEDS: SEVELAMER 800 MG TAB PO SCH (17:04)
[2025-03-23] MEDS: ATORVASTATIN 20 MG TAB PO SCH (21:58)
[2025-03-23] MEDS: RANOLAZINE ER 500 MG TAB PO SCH (21:59)
[2025-03-24] VITALS (53 sets, daily range): BP systolic 100–181; BP diastolic 20–69; PULSE 72–93; RESP 13–25; TEMP 97.8–98.5; O2SAT 94–100
[2025-03-24] MEDS: PANTOPRAZOLE 40 MG TAB PO SCH (05:52)
--- NOTE | 2025-03-24 06:17 | DVH ---
CHEST RADIOGRAPH Indication: chf Technique: Single frontal view of the chest was obtained Comparison: XY CHEST XRAY 1 VIEW on DOS: 03/23/25 FINDINGS: Lines and Tubes: AICD. Lungs: Patchy bilateral airspace disease. Pleura: No effusion. No pneumothorax. Cardiomediastinal contours: Cardiomegaly. Bones: No acute osseous abnormality. IMPRESSION: 1. Cardiomegaly. 2. Patchy bilateral airspace disease. 3. No significant interval change.
[2025-03-24 08:18] LABS: Hematocrit 33.0 % (41.0-53.0); Hemoglobin 11.2 g/dL (13.5-17.5); Mean Corpuscular Hemoglobin 33.9 pg (28.0-32.0); Mean Corpuscular Volume 99.8 fL (80.0-100.0); Nucleated Red Blood Cells % 0.0 %
[2025-03-24 08:49] LABS: Alanine Aminotransferase 24 U/L (7-40); Alkaline Phosphatase 67 U/L (46-116); Anion Gap 14 (5-15); BUN/Creatinine Ratio 5.2 (10.0-20.0); Calcium 8.9 mg/dL (8.7-10.4); Carbon Dioxide 26 mmol/L (20-31); Potassium 4.4 mmol/L (3.5-5.1); Sodium 138 mmol/L (136-145); Total Protein 6.6 g/dL (5.7-8.2)
[2025-03-24 08:50] LABS: Albumin 3.7 g/dL (3.2-4.8); Blood Urea Nitrogen 48 mg/dL (9-23); Chloride 98 mmol/L (98-107); Glucose 179 mg/dL (74-106)
[2025-03-24 08:52] LABS: Bilirubin, Total 0.4 mg/dL (0.2-1.0)
[2025-03-24] MEDS: ISOSORBIDE MONONITRATE ER 60 MG TAB PO SCH (10:00)
--- NOTE | 2025-03-24 11:02 | DVHPN2 ---
Progress Note Date Seen: Mar 24, 2025 Medical Necessity Reason Pt with a Central, PICC or Fol: No Subjective Patient reports: No new complaints Review of Systems: HEENT:Normal, CVS:Normal, RESPIRATORY:Normal, GI:Normal, :Normal, MSK:Normal, NEURO:Normal Objective vital signs Vital Sign Date Time Temp Pulse Resp B/P (MAP) Pulse Ox O2 Delivery O2 Flow Rate FiO2 03/24/25 06:30 75 17 97 03/24/25 05:36 Nasal Cannula* 2 28 03/24/25 04:00 98.5 98.5 Total Intake and Output 03/23/25 03/23/25 03/24/25 15:00 23:00 07:00 Intake Total 240 ml 240 ml Output Total 0 ml 0 ml Balance 240 ml 240 ml medications Current Medications Medications Dose Ordered Sig/Edson Route Start Time Stop Time Status Last Admin Dose Admin Aspirin 81 mg DAILY PO 03/23/25 10:00 03/23/25 14:45 81 MG Clopidogrel Bisulfate 75 mg DAILY PO 03/23/25 10:00 03/23/25 14:45 75 MG Carvedilol 12.5 mg Q12HR PO 03/22/25 22:00 03/23/25 21:59 12.5 MG Pantoprazole Sodium 40 mg DAILY IV 03/23/25 10:00 03/23/25 14:44 40 MG Albuterol 2.5 mg Q8HR NEB 03/22/25 14:00 03/24/25 05:36 2.5 MG Ipratropium [place] 0.5 mg Q8HR NEB 03/22/25 14:00 03/24/25 05:36 0.5 MG Heparin Sodium (Porcine) 5,000 units Q12HR SC 03/22/25 22:00 03/23/25 22:00 5,000 UNITS Acetaminophen 650 mg Q6HP PRN PO 03/23/25 00:45 03/23/25 00:45 650 MG Ranolazine 500 mg BID PO 03/23/25 22:00 03/23/25 21:59 500 MG Sevelamer HCl 800 mg TIDWM PO 03/23/25 18:00 03/24/25 08:34 800 MG Atorvastatin Calcium 40 mg HS PO 03/23/25 22:00 03/23/25 21:58 40 MG Isosorbide Mononitrate 30 mg DAILY PO 03/24/25 10:00 Pantoprazole Sodium 40 mg DAILY@0600 PO 03/24/25 06:00 03/24/25 05:52 40 MG Examination: GENERAL:Normal, HEENT:Normal, NECK:Normal, LUNGS:Normal, LUNGS:Abnormal (on oxygen), CVS:Normal, ABDOMEN:Normal, MSK:Normal, SKIN:Normal, NEURO:Normal, :Normal laboratory and microbiology Laboratory Tests 03/24/25 07:48 03/24/25 07:40 Test 03/24/25 07:40 Range/Units Serum Glucose 179 H 74-106 mg/dL Microbiology Date/Time Source Procedure Growth Status 03/22/25 20:02 Nose MRSA Screen - Final Complete 03/22/25 15:11 Blood Blood Culture - Preliminary NO GROWTH AFTER 24 HOURS OF INCUBATION. Resulted Problem List/Assessment/Plan Problem List/Assessment/Plan * Acute respiratory failure: on bipap- off * Acute on chronic systolic heart failure: dialysis * End-stage renal disease on hemodialysis. * Coronary artery disease with previous stent. * History of CABG. * COPD with exacerbation. * Anemia. * s/p aicd * Diabetes mellitus. * History of hepatitis C. * Non-ST elevation ID: type 2 *thrombocytopenia advance care planning- full code- time spent 19 mins Plan discussed with: Patient My Orders My Orders Orders - CRAIG NAZARIO MD Procedure Category Date Status Time Ranolazine (Ranexa Er) PHA 03/23/25 In Process 22:00 Sevelamer (Renagel) PHA 03/23/25 In Process 18:00 Atorvastatin (Lipitor) PHA 03/23/25 In Process 22:00 Isosorbide PHA 03/24/25 In Process Mononitrate Tablet 10:00 Chest Portable XY 03/24/25 Resulted 06:00 Pantoprazole Tablet PHA 03/24/25 In Process (Protonix Tablet) 06:00 Transfer Orders XFER 03/24/25 Verified 11:00 Pt Request For Service PT 03/24/25 Verified 11:00 Date of Service: Mar 24, 2025 Billing Provider: CRAIG NAZARIO MD Common Visit Codes: [id number] INP/OBS CARE(HIGH) Secondary Visit Codes: [id number] CARE PLAN 30 MINUTES CRAIG NAZARIO MD Mar 24, 2025 11:02
[2025-03-24] MEDS: SODIUM CHL 0.9% 1000 ML BAG XX ONE (12:15)
--- NOTE | 2025-03-24 12:21 | DVHPN2 ---
Progress Note - Dictate Date Seen: Mar 24, 2025 Has the PT tested + for MRSA If YES, has PT been informed?: No Medical Necessity Reason Pt with a Central, PICC or Fol: No Subjective Feels better vital signs Vital Sign Date Time Temp Pulse Resp B/P (MAP) Pulse Ox O2 Delivery O2 Flow Rate FiO2 03/24/25 06:30 75 17 97 03/24/25 05:36 Nasal Cannula* 2 28 03/24/25 04:00 98.5 98.5 Total Intake and Output 03/23/25 03/23/25 03/24/25 15:00 23:00 07:00 Intake Total 240 ml 240 ml Output Total 0 ml 0 ml Balance 240 ml 240 ml medications Current Medications Medications Dose Ordered Sig/Edson Route Start Time Stop Time Status Last Admin Dose Admin Aspirin 81 mg DAILY PO 03/23/25 10:00 03/23/25 14:45 81 MG Clopidogrel Bisulfate 75 mg DAILY PO 03/23/25 10:00 03/23/25 14:45 75 MG Carvedilol 12.5 mg Q12HR PO 03/22/25 22:00 03/23/25 21:59 12.5 MG Albuterol 2.5 mg Q8HR NEB 03/22/25 14:00 03/24/25 05:36 2.5 MG Ipratropium [place] 0.5 mg Q8HR NEB 03/22/25 14:00 03/24/25 05:36 0.5 MG Heparin Sodium (Porcine) 5,000 units Q12HR SC 03/22/25 22:00 03/23/25 22:00 5,000 UNITS Acetaminophen 650 mg Q6HP PRN PO 03/23/25 00:45 03/23/25 00:45 650 MG Ranolazine 500 mg BID PO 03/23/25 22:00 03/23/25 21:59 500 MG Sevelamer HCl 800 mg TIDWM PO 03/23/25 18:00 03/24/25 08:34 800 MG Atorvastatin Calcium 40 mg HS PO 03/23/25 22:00 03/23/25 21:58 40 MG Isosorbide Mononitrate 30 mg DAILY PO 03/24/25 10:00 Pantoprazole Sodium 40 mg DAILY@0600 PO 03/24/25 06:00 03/24/25 05:52 40 MG objective GENERAL: The patient is in no acute distress, alert and oriented x3. HEENT: Unremarkable. NECK: No jugular venous distention. LUNGS: Show good air entry at the bases. No crackles. CARDIOVASCULAR: Shows regular rate with an S4 gallop. ABDOMEN: Soft, nontender. No organomegaly. No ascites. SKIN: Show no clubbing, cyanosis or edema. laboratory and microbiology Laboratory Tests 03/24/25 07:48 03/24/25 07:40 Test 03/24/25 07:40 Range/Units Serum Glucose 179 H 74-106 mg/dL Assessment/Plan ASSESSMENT AND PLAN: * End-stage renal disease. * No electrolyte imbalances. * Mild fluid overload with uncontrolled hypertension, both improved after dialysis. * Anemia of renal disease. Hemoglobin is at target range. HD again today UF goal 2 L The patient could be discharged home if there are no contraindications. Continue dialysis as an outpatient. Thank you for the consultation. Plan discussed with: Patient HI WINTER MD Mar 24, 2025 12:21
[2025-03-25] VITALS (15 sets, daily range): BP systolic 129–144; BP diastolic 70–90; PULSE 71–83; RESP 16–18; TEMP 97.5–98.3; O2SAT 92–100
--- NOTE | 2025-03-25 14:23 | DVHPN2 ---
Progress Note Date Seen: Mar 25, 2025 Has the PT tested + for MRSA If YES, has PT been informed?: No Medical Necessity Reason Pt with a Central, PICC or Fol: No Subjective Patient reports: No new complaints Review of Systems: HEENT:Normal, CVS:Normal, RESPIRATORY:Normal, GI:Normal, :Normal, MSK:Normal, NEURO:Normal Objective vital signs Vital Sign Date Time Temp Pulse Resp B/P (MAP) Pulse Ox O2 Delivery O2 Flow Rate FiO2 03/25/25 11:42 76 138/71 03/25/25 09:00 98.0 18 92 98.0 03/25/25 08:00 Nasal Cannula* 2 28 Total Intake and Output 03/24/25 03/24/25 03/25/25 15:00 23:00 07:00 Intake Total 500 ml 250 ml Output Total 300 ml Balance 500 ml -50 ml medications Current Medications Medications Dose Ordered Sig/Edson Route Start Time Stop Time Status Last Admin Dose Admin Aspirin 81 mg DAILY PO 03/23/25 10:00 03/25/25 10:51 81 MG Clopidogrel Bisulfate 75 mg DAILY PO 03/23/25 10:00 03/25/25 10:50 75 MG Carvedilol 12.5 mg Q12HR PO 03/22/25 22:00 03/25/25 10:51 12.5 MG Albuterol 2.5 mg Q8HR NEB 03/22/25 14:00 03/25/25 06:30 2.5 MG Ipratropium [place] 0.5 mg Q8HR NEB 03/22/25 14:00 03/25/25 06:30 0.5 MG Heparin Sodium (Porcine) 5,000 units Q12HR SC 03/22/25 22:00 03/25/25 10:53 5,000 UNITS Acetaminophen 650 mg Q6HP PRN PO 03/23/25 00:45 03/23/25 00:45 650 MG Ranolazine 500 mg BID PO 03/23/25 22:00 03/25/25 10:52 500 MG Sevelamer HCl 800 mg TIDWM PO 03/23/25 18:00 03/25/25 11:42 800 MG Atorvastatin Calcium 40 mg HS PO 03/23/25 22:00 03/24/25 21:09 40 MG Isosorbide Mononitrate 30 mg DAILY PO 03/24/25 10:00 03/25/25 10:51 30 MG Pantoprazole Sodium 40 mg DAILY@0600 PO 03/24/25 06:00 03/25/25 05:04 40 MG Examination: GENERAL:Normal, HEENT:Normal, NECK:Normal, LUNGS:Normal, CVS:Normal, ABDOMEN:Normal, MSK:Normal, SKIN:Normal, NEURO:Normal, :Normal laboratory and microbiology Laboratory Tests 03/24/25 07:48 03/24/25 07:40 Test 03/24/25 07:40 Range/Units Serum Glucose 179 H 74-106 mg/dL Microbiology Date/Time Source Procedure Growth Status 03/22/25 20:02 Nose MRSA Screen - Final Complete 03/22/25 15:11 Blood Blood Culture - Preliminary NO GROWTH AFTER 48 HOURS OF INCUBATION. Resulted Problem List/Assessment/Plan Problem List/Assessment/Plan * Acute respiratory failure: on bipap- off * Acute on chronic systolic heart failure: dialysis * End-stage renal disease on hemodialysis. * Coronary artery disease with previous stent. * History of CABG. * COPD with exacerbation. * Anemia. * s/p aicd * Diabetes mellitus. * History of hepatitis C. * Non-ST elevation [place]: type 2 *thrombocytopenia advance care planning- full code- time spent 19 mins Plan discussed with: Patient My Orders My Orders Orders - CRAIG NAZARIO MD Procedure Category Date Status Time * Product Manager Medical Device CONS 03/25/25 Verified Consult Date of Service: Mar 25, 2025 Billing Provider: CRAIG NAZARIO MD Common Visit Codes: [id number] INP/OBS CARE(HIGH) CRAIG NAZARIO MD Mar 25, 2025 14:23
--- NOTE | 2025-03-25 15:21 | DVHPN2 ---
Progress Note - Dictate Date Seen: Mar 25, 2025 Has the PT tested + for MRSA If YES, has PT been informed?: No Medical Necessity Reason Pt with a Central, PICC or Fol: No Subjective No new complaints vital signs Vital Sign Date Time Temp Pulse Resp B/P (MAP) Pulse Ox O2 Delivery O2 Flow Rate FiO2 03/25/25 14:37 72 16 100 03/25/25 13:00 98.3 144/79 (100) 98.3 03/25/25 08:00 Nasal Cannula* 2 28 Total Intake and Output 03/24/25 03/24/25 03/25/25 15:00 23:00 07:00 Intake Total 500 ml 250 ml Output Total 300 ml Balance 500 ml -50 ml medications Current Medications Medications Dose Ordered Sig/Edson Route Start Time Stop Time Status Last Admin Dose Admin Aspirin 81 mg DAILY PO 03/23/25 10:00 03/25/25 10:51 81 MG Clopidogrel Bisulfate 75 mg DAILY PO 03/23/25 10:00 03/25/25 10:50 75 MG Carvedilol 12.5 mg Q12HR PO 03/22/25 22:00 03/25/25 10:51 12.5 MG Albuterol 2.5 mg Q8HR NEB 03/22/25 14:00 03/25/25 14:27 2.5 MG Ipratropium [place] 0.5 mg Q8HR NEB 03/22/25 14:00 03/25/25 14:27 0.5 MG Heparin Sodium (Porcine) 5,000 units Q12HR SC 03/22/25 22:00 03/25/25 10:53 5,000 UNITS Acetaminophen 650 mg Q6HP PRN PO 03/23/25 00:45 03/23/25 00:45 650 MG Ranolazine 500 mg BID PO 03/23/25 22:00 03/25/25 10:52 500 MG Sevelamer HCl 800 mg TIDWM PO 03/23/25 18:00 03/25/25 11:42 800 MG Atorvastatin Calcium 40 mg HS PO 03/23/25 22:00 03/24/25 21:09 40 MG Isosorbide Mononitrate 30 mg DAILY PO 03/24/25 10:00 03/25/25 10:51 30 MG Pantoprazole Sodium 40 mg DAILY@0600 PO 03/24/25 06:00 03/25/25 05:04 40 MG objective GENERAL: The patient is in no acute distress, alert and oriented x3. HEENT: Unremarkable. NECK: No jugular venous distention. LUNGS: Show good air entry at the bases. No crackles. CARDIOVASCULAR: Shows regular rate with an S4 gallop. ABDOMEN: Soft, nontender. No organomegaly. No ascites. SKIN: Show no clubbing, cyanosis or edema. laboratory and microbiology Laboratory Tests 03/24/25 07:48 03/24/25 07:40 Test 03/24/25 07:40 Range/Units Serum Glucose 179 H 74-106 mg/dL Assessment/Plan * End-stage renal disease, stable * No electrolyte imbalances. * Mild fluid overload with uncontrolled hypertension, both improved after dialysis. * Anemia of renal disease. Hemoglobin is at target range. HD on MWF schedule The patient could be discharged home if there are no contraindications. Continue dialysis as an outpatient. Thank you for the consultation. Plan discussed with: Patient HI WINTER MD Mar 25, 2025 15:21
[2025-03-26] VITALS (14 sets, daily range): BP systolic 137–159; BP diastolic 68–80; PULSE 74–95; RESP 14–24; TEMP 97.3–98.1; O2SAT 95–100
[2025-03-26] MEDS: SODIUM CHL 0.9% 1000 ML BAG XX ONE (07:00)
--- NOTE | 2025-03-26 13:09 | DVHPN2 ---
Subjective Continues to report having dyspnea, despite being dialyzed. Reviewed: Care Plan, H&P, Labs, Medications Changes from previous H/P or p: No Changes General: Per HPI Objective Vitals Vital Signs Date Time Temp Pulse Resp B/P (MAP) Pulse Ox O2 Delivery O2 Flow Rate FiO2 03/26/25 12:41 97.3 75 16 148/68 (94) 95 97.3 03/26/25 07:30 Nasal Cannula* 2 28 Intake/Output Intake and Output 03/26/25 07:00 Intake Total 1350 ml Output Total 900 ml Balance 450 ml Intake Oral 1350 ml Output Urine Total 900 ml General Appearance: Alert, Oriented X3, Cooperative, mild distress HEENT: Atraumatic, PERRLA Lungs: Clear to auscultation, Normal air movement Cardiovascular: Normal S1, Normal S2 Musculoskeletal: Normal sensory function, Normal motor function Neuro: Normal gait, Normal speech, Strength at 5/5 X4 ext Skin: Dry, Intact Psych/Mental Status: Mental status NL, Mood NL Medications Current Medications Medications Dose Ordered Sig/Edson Route Start Time Stop Time Status Last Admin Dose Admin Aspirin 81 mg DAILY PO 03/23/25 10:00 03/26/25 08:38 81 MG Clopidogrel Bisulfate 75 mg DAILY PO 03/23/25 10:00 03/26/25 08:38 75 MG Carvedilol 12.5 mg Q12HR PO 03/22/25 22:00 03/25/25 22:24 12.5 MG Albuterol 2.5 mg Q8HR NEB 03/22/25 14:00 03/26/25 06:20 2.5 MG Ipratropium [place] 0.5 mg Q8HR NEB 03/22/25 14:00 03/26/25 06:20 0.5 MG Heparin Sodium (Porcine) 5,000 units Q12HR SC 03/22/25 22:00 03/26/25 08:40 5,000 UNITS Acetaminophen 650 mg Q6HP PRN PO 03/23/25 00:45 03/23/25 00:45 650 MG Ranolazine 500 mg BID PO 03/23/25 22:00 03/25/25 10:52 500 MG Sevelamer HCl 800 mg TIDWM PO 03/23/25 18:00 03/26/25 08:37 800 MG Atorvastatin Calcium 40 mg HS PO 03/23/25 22:00 03/25/25 22:24 40 MG Isosorbide Mononitrate 30 mg DAILY PO 03/24/25 10:00 03/25/25 10:51 30 MG Pantoprazole Sodium 40 mg DAILY@0600 PO 03/24/25 06:00 03/26/25 06:00 40 MG Laboratory Results Laboratory Tests 03/24/25 07:40 03/24/25 07:48 Microbiology Microbiology Date/Time Source Procedure Growth Status 03/22/25 20:02 Nose MRSA Screen - Final Complete 03/22/25 15:11 Blood Blood Culture - Preliminary NO GROWTH AFTER 72 HOURS OF INCUBATION. Resulted Labs and/or images reviewed: Labs reviewed by me, Image(s) reviewed by me Assessment/Plan Assessment/Plan Impression: -acute hypoxic respiratory failure -end-stage renal disease with hemodialysis -coronary artery disease with previous PTCA and stent placement -primary hypertension -acute on chronic systolic and diastolic heart failure -anemia of chronic disease -thrombocytopenia -NSTEMI type 2 -COPD with exacerbation Plan: -patient continues to report having dyspnea despite breathing treatments and having dialysis. -nephrology consultation: Patient receiving renal replacement therapy at this time -continue dual antiplatelet therapy -guideline directed medical therapy. Continue Coreg, add Entresto -bronchodilators -repeat labs in a.m. Given patient continues to have severe dyspnea, we will hold discharge today. Patient may benefit from repeat HD tomorrow, per supervisor benzene refining. Total time spent with patient discussing and formulating plan of care: 35 minutes. This medical document was created using an electronic medical record system with [employer] dictation system. Although this document has been carefully reviewed, there may still be some phonetic and typographical errors. These areas are purely typographical due to imperfections of the software programs, and do not reflect any compromise in the patient's medical care. Plan discussed with: Patient, Other (RN) Date of Service: Mar 26, 2025 Billing Provider: WOO LOMBARDI NP Common Visit Codes: [id number] INP/OBS CARE(HIGH) WOO LOMBARDI NP Mar 26, 2025 13:09
--- NOTE | 2025-03-26 13:19 | DVHPN2 ---
Progress Note - Dictate Date Seen: Mar 26, 2025 Has the PT tested + for MRSA If YES, has PT been informed?: No Medical Necessity Reason Pt with a Central, PICC or Fol: No Subjective No new complaints vital signs Vital Sign Date Time Temp Pulse Resp B/P (MAP) Pulse Ox O2 Delivery O2 Flow Rate FiO2 03/26/25 12:41 97.3 75 16 148/68 (94) 95 97.3 03/26/25 07:30 Nasal Cannula* 2 28 Total Intake and Output 03/25/25 03/25/25 03/26/25 15:00 23:00 07:00 Intake Total 650 ml 700 ml Output Total 400 ml 500 ml Balance 250 ml 200 ml medications Current Medications Medications Dose Ordered Sig/Edson Route Start Time Stop Time Status Last Admin Dose Admin Aspirin 81 mg DAILY PO 03/23/25 10:00 03/26/25 08:38 81 MG Clopidogrel Bisulfate 75 mg DAILY PO 03/23/25 10:00 03/26/25 08:38 75 MG Carvedilol 12.5 mg Q12HR PO 03/22/25 22:00 03/25/25 22:24 12.5 MG Albuterol 2.5 mg Q8HR NEB 03/22/25 14:00 03/26/25 06:20 2.5 MG Ipratropium [place] 0.5 mg Q8HR NEB 03/22/25 14:00 03/26/25 06:20 0.5 MG Heparin Sodium (Porcine) 5,000 units Q12HR SC 03/22/25 22:00 03/26/25 08:40 5,000 UNITS Acetaminophen 650 mg Q6HP PRN PO 03/23/25 00:45 03/23/25 00:45 650 MG Sevelamer HCl 800 mg TIDWM PO 03/23/25 18:00 03/26/25 08:37 800 MG Atorvastatin Calcium 40 mg HS PO 03/23/25 22:00 03/25/25 22:24 40 MG Isosorbide Mononitrate 30 mg DAILY PO 03/24/25 10:00 03/25/25 10:51 30 MG Pantoprazole Sodium 40 mg DAILY@0600 PO 03/24/25 06:00 03/26/25 06:00 40 MG Sacubitril/ Valsartan 1 tab BID PO 03/26/25 22:00 UNV objective GENERAL: The patient is in no acute distress, alert and oriented x3. HEENT: Unremarkable. NECK: No jugular venous distention. LUNGS: Show good air entry at the bases. No crackles. CARDIOVASCULAR: Shows regular rate with an S4 gallop. ABDOMEN: Soft, nontender. No organomegaly. No ascites. SKIN: Show no clubbing, cyanosis or edema. laboratory and microbiology Laboratory Tests 03/24/25 07:48 03/24/25 07:40 Test 03/24/25 07:40 Range/Units Serum Glucose 179 H 74-106 mg/dL Assessment/Plan * End-stage renal disease, stable * No electrolyte imbalances. * Mild fluid overload with uncontrolled hypertension, both improved after dialysis. * Anemia of renal disease. Hemoglobin is at target range. HD on MWF schedule The patient could be discharged home if there are no contraindications. Continue dialysis as an outpatient. Thank you for the consultation. Dietary Evaluation Review Comments: CCHO-60 Renal standard diet Expected Outcomes/Goals: maintain BW, Controlled DM Plan discussed with: Patient HI WINTER MD Mar 26, 2025 13:19
[2025-03-26] MEDS: SACUBITRIL-VALSARTAN 24mg/26mg TAB PO SCH (21:44)
[2025-03-27] VITALS (14 sets, daily range): BP systolic 107–151; BP diastolic 58–77; PULSE 62–86; RESP 14–19; TEMP 97.6–98; O2SAT 95–100
--- NOTE | 2025-03-27 06:44 | DVH ---
CHEST RADIOGRAPH Indication: chf Technique: Single frontal view of the chest was obtained COMPARISON: XY CHEST PORTABLE on DOS: 03/24/25, XY CHEST XRAY 1 VIEW on DOS: 03/23/25, XY CHEST XRAY 1 VIEW on DOS: 03/22/25, XY CHEST PORTABLE on DOS: 03/14/25, CT CT ANGIO CHEST CONTRAST on DOS: 02/21/25 FINDINGS: Lines and Tubes: None. Right anterior chest wall cardiac pacing device. Lungs: Stable chronic appearing bilateral interstitial pulmonary markings. Small left pleural effusio n unchanged. No evidence of focal consolidation. No pneumothorax. Cardiomediastinal contours: Unremarkable status post median sternotomy. Bones: Unremarkable. Proximal left upper extremity vascular stent. IMPRESSION: 1. Stable chronic appearing bilateral interstitial pulmonary markings. 2. Small left pleural effusion unchanged.
[2025-03-27 08:15] LABS: Potassium 4.9 mmol/L (3.5-5.1); Sodium 137 mmol/L (136-145)
[2025-03-27 08:16] LABS: Anion Gap 14 (5-15); Calcium 9.6 mg/dL (8.7-10.4); Carbon Dioxide 25 mmol/L (20-31)
[2025-03-27 08:17] LABS: Chloride 98 mmol/L (98-107)
[2025-03-27 08:21] LABS: BUN/Creatinine Ratio 5.7 (10.0-20.0)
[2025-03-27 08:22] LABS: Blood Urea Nitrogen 44 mg/dL (9-23); Glucose 120 mg/dL (74-106)
--- NOTE | 2025-03-27 10:04 | DVHPN2 ---
Progress Note - Dictate Date Seen: Mar 27, 2025 Has the PT tested + for MRSA If YES, has PT been informed?: No Medical Necessity Reason Pt with a Central, PICC or Fol: No Subjective No new complaints vital signs Vital Sign Date Time Temp Pulse Resp B/P (MAP) Pulse Ox O2 Delivery O2 Flow Rate FiO2 03/27/25 09:21 97.6 74 14 135/70 (91) 99 97.6 03/27/25 06:51 Nasal Cannula* 2 28 Total Intake and Output 03/26/25 03/26/25 03/27/25 15:00 23:00 07:00 Intake Total 500 ml 850 ml Output Total 25 ml 600 ml Balance 475 ml 250 ml medications Current Medications Medications Dose Ordered Sig/Edson Route Start Time Stop Time Status Last Admin Dose Admin Aspirin 81 mg DAILY PO 03/23/25 10:00 03/26/25 08:38 81 MG Clopidogrel Bisulfate 75 mg DAILY PO 03/23/25 10:00 03/26/25 08:38 75 MG Carvedilol 12.5 mg Q12HR PO 03/22/25 22:00 03/26/25 21:45 12.5 MG Albuterol 2.5 mg Q8HR NEB 03/22/25 14:00 03/27/25 06:51 2.5 MG Ipratropium [place] 0.5 mg Q8HR NEB 03/22/25 14:00 03/27/25 06:51 0.5 MG Heparin Sodium (Porcine) 5,000 units Q12HR SC 03/22/25 22:00 03/26/25 21:43 5,000 UNITS Acetaminophen 650 mg Q6HP PRN PO 03/23/25 00:45 03/26/25 20:34 650 MG Sevelamer HCl 800 mg TIDWM PO 03/23/25 18:00 03/26/25 17:58 800 MG Atorvastatin Calcium 40 mg HS PO 03/23/25 22:00 03/26/25 21:45 40 MG Isosorbide Mononitrate 30 mg DAILY PO 03/24/25 10:00 03/25/25 10:51 30 MG Pantoprazole Sodium 40 mg DAILY@0600 PO 03/24/25 06:00 03/27/25 05:32 40 MG Sacubitril/ Valsartan 1 tab BID PO 03/26/25 22:00 objective GENERAL: The patient is in no acute distress, alert and oriented x3. HEENT: Unremarkable. NECK: No jugular venous distention. LUNGS: Show good air entry at the bases. No crackles. CARDIOVASCULAR: Shows regular rate with an S4 gallop. ABDOMEN: Soft, nontender. No organomegaly. No ascites. SKIN: Show no clubbing, cyanosis or edema. laboratory and microbiology Laboratory Tests 03/27/25 05:55 03/24/25 07:48 Test 03/27/25 05:55 Range/Units Serum Glucose 120 H 74-106 mg/dL Assessment/Plan * End-stage renal disease, stable * No electrolyte imbalances. * Mild fluid overload with uncontrolled hypertension, both improved after dialysis. * Anemia of renal disease. Hemoglobin is at target range. HD on MWF schedule but patient wants tpo get dialyzed today since he might be going home and today was his HD day at the clinic. The patient could be discharged home if there are no contraindications. Continue dialysis as an outpatient. Thank you for the consultation. Dietary Evaluation Review Comments: CCHO-60 Renal standard diet Expected Outcomes/Goals: maintain BW, Controlled DM Plan discussed with: Patient HI WINTER MD Mar 27, 2025 10:04
--- NOTE | 2025-03-27 16:54 | DVHPN2 ---
Subjective Patient reports that his breathing has improved. Currently receiving hemodialysis at 5:00 p.m.. Reviewed: Care Plan, H&P, Labs, Medications Changes from previous H/P or p: Changes General: Per HPI Objective Vitals Vital Signs Date Time Temp Pulse Resp B/P (MAP) Pulse Ox O2 Delivery O2 Flow Rate FiO2 03/27/25 13:16 83 18 100 03/27/25 13:14 97.8 151/75 (100) 97.8 03/27/25 13:10 Nasal Cannula* 2 28 Intake/Output Intake and Output 03/27/25 07:00 Intake Total 1350 ml Output Total 625 ml Balance 725 ml Intake Oral 1350 ml Output Urine Total 625 ml # Voids 4 General Appearance: Alert, Oriented X3, Cooperative, mild distress HEENT: Atraumatic, PERRLA Lungs: Clear to auscultation, Normal air movement Cardiovascular: Normal S1, Normal S2 Musculoskeletal: Normal sensory function, Normal motor function Neuro: Normal gait, Normal speech, Strength at 5/5 X4 ext Skin: Dry, Intact Psych/Mental Status: Mental status NL, Mood NL Medications Current Medications Medications Dose Ordered Sig/Edson Route Start Time Stop Time Status Last Admin Dose Admin Aspirin 81 mg DAILY PO 03/23/25 10:00 03/27/25 12:32 81 MG Clopidogrel Bisulfate 75 mg DAILY PO 03/23/25 10:00 03/27/25 12:34 75 MG Carvedilol 12.5 mg Q12HR PO 03/22/25 22:00 03/27/25 12:33 12.5 MG Albuterol 2.5 mg Q8HR NEB 03/22/25 14:00 03/27/25 13:10 2.5 MG Ipratropium [place] 0.5 mg Q8HR NEB 03/22/25 14:00 03/27/25 13:10 0.5 MG Heparin Sodium (Porcine) 5,000 units Q12HR SC 03/22/25 22:00 03/26/25 21:43 5,000 UNITS Acetaminophen 650 mg Q6HP PRN PO 03/23/25 00:45 03/26/25 20:34 650 MG Sevelamer HCl 800 mg TIDWM PO 03/23/25 18:00 03/27/25 12:00 800 MG Atorvastatin Calcium 40 mg HS PO 03/23/25 22:00 03/26/25 21:45 40 MG Isosorbide Mononitrate 30 mg DAILY PO 03/24/25 10:00 03/25/25 10:51 30 MG Pantoprazole Sodium 40 mg DAILY@0600 PO 03/24/25 06:00 03/27/25 05:32 40 MG Sacubitril/ Valsartan 1 tab BID PO 03/26/25 22:00 03/27/25 12:33 1 TAB Laboratory Results Laboratory Tests 03/24/25 07:48 03/27/25 05:55 Chemistry Test 03/27/25 05:55 Calcium Level 9.6 mg/dL (8.7-10.4) Microbiology Microbiology Date/Time Source Procedure Growth Status 03/22/25 20:02 Nose MRSA Screen - Final Complete 03/22/25 15:11 Blood Blood Culture - Final NO GROWTH AFTER 5 DAYS OF INCUBATION. Complete Labs and/or images reviewed: Labs reviewed by me, Image(s) reviewed by me Assessment/Plan Assessment/Plan Impression: -acute hypoxic respiratory failure -end-stage renal disease with hemodialysis -coronary artery disease with previous PTCA and stent placement -primary hypertension -acute on chronic systolic and diastolic heart failure -anemia of chronic disease -thrombocytopenia -NSTEMI type 2 -COPD with exacerbation Plan: Events: Patient's respiratory status improved. Patient currently receiving hemodialysis this evening. Discussed with the patient plan for discharge in a.m. if he remains without incident overnight. He is agreeable. -nephrology consultation: Patient receiving renal replacement therapy at this time -continue dual antiplatelet therapy -guideline directed medical therapy. Continue Coreg, add Entresto -bronchodilators -repeat labs in a.m. Total time spent with patient discussing and formulating plan of care: 35 minutes. This medical document was created using an electronic medical record system with [employer] dictation system. Although this document has been carefully reviewed, there may still be some phonetic and typographical errors. These areas are purely typographical due to imperfections of the software programs, and do not reflect any compromise in the patient's medical care. Plan discussed with: Patient, Other (RN) Date of Service: Mar 27, 2025 Billing Provider: WOO LOMBARDI NP Common Visit Codes: [id number] INP/OBS CARE(HIGH) WOO LOMBARDI NP Mar 27, 2025 16:54
[2025-03-27] MEDS ORDERED: DEXTROSE (50%) 50ML SYRG IV PRN (22:00)
[2025-03-28] VITALS (10 sets, daily range): BP systolic 119–138; BP diastolic 61–73; PULSE 68–88; RESP 14–18; TEMP 97.3–97.9; O2SAT 97–100
[2025-03-28] MEDS: ACCU-CHEK COMFORT CURVE STRIP VI SCH (00:10)
[2025-03-28] MEDS: InsuLIN REG 1unit/0.01ml Soln (100units/ml) SC SCH (00:10)
[2025-03-28 01:58] LABS: Hematocrit 35.5 % (41.0-53.0); Hemoglobin 12.0 g/dL (13.5-17.5)
--- NOTE | 2025-03-28 09:00 | DVHDS2 ---
Discharge Summary Date of Admission Mar 22, 2025 at 10:06 Date of Discharge: Mar 28, 2025 Admitting Diagnosis Acute on chronic hypoxic respiratory failure. Labs/Diagnostic Data: Laboratory Results Test 03/28/25 03:28 03/28/25 01:44 03/27/25 05:55 03/24/25 07:49 POC Glucose 74 mg/dl (70-106) Hemoglobin 12.0 g/dL (13.5-17.5) Hematocrit 35.5 % (41.0-53.0) Hemoglobin A1c 6.4 % A1C (<5.7) Sodium Level 137 mmol/L (136-145) Potassium Level 4.9 mmol/L (3.5-5.1) Chloride Level 98 mmol/L (98-107) Carbon Dioxide Level 25 mmol/L (20-31) Anion Gap 14 (5-15) Blood Urea Nitrogen 44 mg/dL (9-23) Creatinine 7.71 mg/dL (0.700-1.30) Glomerular Filtration Rate Calc 7 mL/min (>90) BUN/Creatinine Ratio 5.7 (10.0-20.0) Serum Glucose 120 mg/dL (74-106) Calcium Level 9.6 mg/dL (8.7-10.4) Hepatitis B Surface Antigen Negative (Negative) Test 03/24/25 07:48 03/24/25 07:40 03/22/25 14:47 03/22/25 13:00 White Blood Count 4.4 10^3/uL (4.4-10.8) Red Blood Count 3.31 10^6/uL (4.5-5.90) Mean Corpuscular Volume 99.8 fL (80.0-100.0) Mean Corpuscular Hemoglobin 33.9 pg (28.0-32.0) Mean Corpuscular Hemoglobin Concent 33.9 g/dL (32.0-36.0) Red Cell Distribution Width 16.0 % (11.8-14.3) Platelet Count 134 10^3/uL (140-450) Mean Platelet Volume 7.7 fL (6.9-10.8) Neutrophils (%) (Auto) 64.9 % (37.0-80.0) Lymphocytes (%) (Auto) 15.1 % (10.0-50.0) Monocytes (%) (Auto) 18.6 % (0.0-12.0) Eosinophils (%) (Auto) 1.1 % (0.0-7.0) Basophils (%) (Auto) 0.3 % (0.0-2.0) Neutrophils # (Auto) 2.9 10 ^3/uL (1.6-8.6) Lymphocytes # (Auto) 0.7 10 ^3/uL (0.4-5.4) Monocytes # (Auto) 0.8 10 ^3/uL (0-1.3) Eosinophils # (Auto) 0 10 ^3/uL (0-0.8) Basophils # (Auto) 0 10 ^3/uL (0-0.2) Nucleated Red Blood Cells 0.0 % Platelet Estimate Decreased Random Vancomycin Level 12.4 ug/mL (5-10) Total Bilirubin 0.4 mg/dL (0.2-1.0) Aspartate Amino Transferase (AST) 26 U/L (13-40) Alanine Aminotransferase (ALT) 24 U/L (7-40) Alkaline Phosphatase 67 U/L (46-116) Total Protein 6.6 g/dL (5.7-8.2) Albumin 3.7 g/dL (3.2-4.8) Blood Gas Specimen Type Arterial Blood Gas Sample Site Right radial Blood Gas Patient Temperature 37.0 Arterial Blood Date Drawn [id number] Arterial Blood pH 7.405 (7.350-7.450) Arterial Blood Partial Pressure CO2 35.9 mmHg (35.0-48.0) Arterial Blood Partial Pressure O2 79.4 mmHg (83.0-108.0) Arterial Blood HCO3 22.0 mmol/L (21.0-28.0) Arterial Blood Oxygen Saturation 94.4 % (94.0-98.0) Arterial Blood Base Excess -2.2 mmol/L (-2.0-3.0) Arterial Blood Oxyhemoglobin 93.5 % (94.0-98.0) Arterial Blood Carboxyhemoglobin 0.7 % (0.5-1.5) Arterial Blood Methemoglobin 0.3 % (0.0-1.5) Max Test Yes Blood Gas Total Hemoglobin 12.90 g/dL (13.5-17.5) Blood Gas Set Respiration Rate 12.0 Blood Gas Modality Mask - bipap FiO2 % 30.0 Blood Gas EPAP 5 Blood Gas IPAP 12 Influenza Type A Antigen Negative (Negative) Influenza Type B Antigen Negative (Negative) SARS-CoV-2 Antigen (Rapid) Negative (NEGATIVE) Test 03/22/25 10:07 03/22/25 05:55 03/22/25 04:20 Phosphorus Level 4.3 mg/dL (2.4-5.1) Magnesium Level 1.4 mg/dL (1.6-2.6) Troponin I High Sensitivity 351 ng/L (</=54) B-Type Natriuretic Peptide 4918.43 pg/mL (0-100) Blood Gas Liter Flow 3.00 Other Laboratory Tests 03/28/25 01:44 03/27/25 05:55 03/24/25 07:48 Brief Hx & Hospital Course: History of Present Illness Patient is a 75-year-old male with a medical history of end-stage renal disease on dialysis in the last 2 years, ischemic cardiomyopathy s/p stent to LCX and RCA, s/p AICD placement, hypertension presented to the hospital last night with a chief complaint of worsening shortness of breath. Patient was recently discharged from the hospital and underwent dialysis on and Saturday at [facility] dialysis, but usually gets dialysis on Saturday and Saturday but since the patient had to go out on the weekend he missed the dialysis on Saturday. Saturday evening patient has started to have worsening shortness of breath following which EMS were called. At home patient is on 2 L oxygen at home. Patient did not have any chest pain, fever, chills, no cough or phlegm. Course of hospitalization: Patient was restarted on guideline directed medical therapy. Fluid restriction was implemented. Patient continued to be on home O2 supplementation at 2 L/min. Patient had multiple hemodialysis treatments including consecutive treatments on 03/26 as well as 03/27 with the patient reporting that his respiratory status has improved dramatically. Patient was discussed the need to be adherent with his medications, diet, as well as fluid restriction. He reported that he recently did go to [place], and perhaps had too much sodium intake during the trip. Patient reports that he will attempt to monitor his dietary intake as well. He will continue all previous home medications, follow up with his established hemodialysis chair time, and follow up with his PCP within 1-2 weeks. Patient was agreeable with discharge plan. All questions answered. Physical examination General: Alert and Oriented x3. No acute distress. Well-nourished. Eyes: EOMI. Anicteric. HENT: Moist mucous membranes. Lungs: Clear to auscultation bilaterally. No accessory muscle use. Cardiovascular: Regular rate and rhythm. No murmur. No JVD. Abdomen: Soft, non-tender and non-distended. No palpable masses. Extremities: No edema. Non-tender. Skin: No rashes or lesions. Warm. Neurologic: No focal neurological deficits. CN II-XII grossly intact, but not individually tested. Psychiatric: Cooperative. Appropriate mood and affect. Total time spent with patient discussing and formulating plan of care: 35 minutes. This medical document was created using an electronic medical record system with [employer] dictation system. Although this document has been carefully reviewed, there may still be some phonetic and typographical errors. These areas are purely typographical due to imperfections of the software programs, and do not reflect any compromise in the patient's medical care. Consults/Reason for consult Nephrology: Hemodialysis Condition at Discharge: Poor Final Diagnosis/Problems List Acute decompensated systolic heart failure -acute hypoxic respiratory failure -end-stage renal disease with hemodialysis -coronary artery disease with previous PTCA and stent placement -primary hypertension -acute on chronic systolic and diastolic heart failure -anemia of chronic disease -thrombocytopenia -NSTEMI type 2 -COPD with exacerbation Discharge Disposition: Home Discharge Instruct/Medications Diet: Cardiac 2g Na,low cholest, Renal Diet comment: Patient was instructed importance of fluid restriction. Patient also educated on the need to monitor sodium intake when he is traveling and eating out. Activity: No Restrictions, As Tolerated Follow Up/Referral: Follow up with PCP in 1-2 weeks Follow up with sales representative printing paper in 1-2 weeks Continue established hemodialysis chair time TTS Medications: Continue all home medications Scheduled Albuterol Sulfate (Albuterol Sulfate), 1.25 MG IN QIDP Aspirin (Aspirin Low Dose), 1 TAB PO DAILY, (Reported) Atorvastatin Calcium (Atorvastatin Calcium), 1 TAB PO DAILY, (Reported) Carvedilol (Coreg), 12.5 MG PO BID Clopidogrel Bisulfate (Clopidogrel), 1 TAB PO DAILY, (Reported) Ergocalciferol (Vitamin D), 1 CAP PO QWEEKLY, (Reported) Furosemide (Furosemide), 1 TAB PO DAILY, (Reported) Ipratropium Lynch (Ipratropium Lynch), 0.5 % HHN QIDP Isosorbide Mononitrate (Isosorbide Mononitrate Er), 1 TAB PO DAILY, (Reported) Magnesium Oxide (Magnesium Oxide), 1 TAB PO DAILY, (Reported) Magnesium Oxide (Magnesium Oxide), 1 TAB PO BID Meloxicam (Meloxicam), 1 TAB PO DAILY, (Reported) Nitroglycerin (Nitrostat), 1 TAB PO UD, (Reported) Omeprazole (Omeprazole Dr), 1 CAP PO DAILY, (Reported) Oxycodone HCl (Oxycodone Hydrochloride), 1 TAB PO QID, (Reported) Ranolazine (Ranolazine ER), 1 TAB PO BID, (Reported) Sevelamer Carbonate (Renvela), 2 TAB PO TID, (Reported) 36 Discharge Statement: "Patient was advised to return to the ER or call 911 if any headaches, dizziness, shortness of breath, chest pain, abdominal pain, bleeding, fevers, or worsening of medical condition. Patient was counseled about treatment plan, medications, possible side effects, patientverbalized understanding. All questions were answered to the best of my ability. This discharge took greater then 30 minutes in planning, reviewing documentation, counseling the patient, and discussing with other team members." ASSESSMENT ASSESSMENT Assessment Acute decompensated systolic heart failure Date of Service: Mar 28, 2025 Billing Provider: WOO LOMBARDI NP Common Visit Codes: 23624-EFY/OBS DISCH DAY >30min WOO LOMBARDI NP Mar 28, 2025 09:00
[2025-03-28] MEDS: SODIUM CHL 0.9% 1000 ML BAG XX ONE (13:03)
--- NOTE | 2025-03-28 13:54 | DVHPN2 ---
Progress Note - Dictate Date Seen: Mar 28, 2025 Has the PT tested + for MRSA If YES, has PT been informed?: No Medical Necessity Reason Pt with a Central, PICC or Fol: No Subjective Patient feels well and he wants to go home vital signs Vital Sign Date Time Temp Pulse Resp B/P (MAP) Pulse Ox O2 Delivery O2 Flow Rate FiO2 03/28/25 13:23 72 18 100 03/28/25 13:17 Nasal Cannula 2.0 03/28/25 13:17 28 03/28/25 12:36 165/83 03/28/25 10:45 97.9 Total Intake and Output 03/27/25 03/27/25 03/28/25 15:00 23:00 07:00 Intake Total 400 ml 800 ml Output Total 100 ml Balance 300 ml 800 ml medications Current Medications Medications Dose Ordered Sig/Edson Route Start Time Stop Time Status Last Admin Dose Admin Aspirin 81 mg DAILY PO 03/23/25 10:00 03/28/25 12:36 81 MG Clopidogrel Bisulfate 75 mg DAILY PO 03/23/25 10:00 03/28/25 12:35 75 MG Carvedilol 12.5 mg Q12HR PO 03/22/25 22:00 03/28/25 12:36 12.5 MG Albuterol 2.5 mg Q8HR NEB 03/22/25 14:00 03/28/25 13:17 2.5 MG Ipratropium Jber 0.5 mg Q8HR NEB 03/22/25 14:00 03/28/25 13:17 0.5 MG Heparin Sodium (Porcine) 5,000 units Q12HR SC 03/22/25 22:00 03/27/25 22:36 5,000 UNITS Acetaminophen 650 mg Q6HP PRN PO 03/23/25 00:45 03/26/25 20:34 650 MG Sevelamer HCl 800 mg TIDWM PO 03/23/25 18:00 03/28/25 12:35 800 MG Atorvastatin Calcium 40 mg HS PO 03/23/25 22:00 03/27/25 22:33 40 MG Isosorbide Mononitrate 30 mg DAILY PO 03/24/25 10:00 03/25/25 10:51 30 MG Pantoprazole Sodium 40 mg DAILY@0600 PO 03/24/25 06:00 03/28/25 05:34 40 MG Sacubitril/ Valsartan 1 tab BID PO 03/26/25 22:00 03/27/25 12:33 1 TAB Diagnostic Test (Pha) 1 strip IQ4HR 03/28/25 00:00 03/28/25 03:35 1 STRIP Dextrose 50 ml UD PRN IV 03/27/25 22:00 objective HEENT: No evidence of JVD, no oral ulcers. Pulmonary: Lungs are clear on auscultation bilaterally Cardiovascular S1-S2, no S3 or S4 Abdomen: Bowel sounds positive, soft no rebound tenderness Skin: No rash Neurological: Alert, oriented, no focal weakness laboratory and microbiology Laboratory Tests 03/28/25 01:44 03/27/25 05:55 03/24/25 07:48 Test 03/27/25 05:55 Range/Units Serum Glucose 120 H 74-106 mg/dL Assessment/Plan Assessment End-stage renal disease, stable No electrolyte imbalances. Hypertension Chronic hypoxic respiratory failure CHF Anemia of renal disease. Hemoglobin is at target range. Plan Hemodialysis was completed yesterday Patient will go to his dialysis unit tomorrow The patient could be discharged home if there are no contraindications. Continue dialysis as an outpatient. Thank you for the consultation. Dietary Evaluation Review Comments[facility] diet Expected Outcomes/Goals: maintain BW, Controlled DM Plan discussed with: Patient CARLOS SETHI MD Mar 28, 2025 13:54
== END 2025-03-28 15:45 | disposition home health service (06) | DRG 280 ==
LOC: EDBD 03:06 → ER 03:06 → OVERFLOW 10:06 → TELE-WESTW 17:35 → DOU IN ICU 19:51 → ICU CENTRL 20:00 → TELE-WESTW 03-24 18:38
PROVIDERS: ADMIT Nurse Practitioner Acute Care; ATTEND Nurse Practitioner Acute Care
PROC: 5A09357 Assistance with Respiratory Ventilation, Less than 24 Consecutive Hours, Continuous Positive Airway Pressure (ICD-10-PCS; 2025-03-22)
PROC: 5A1D70Z Performance of Urinary Filtration, Intermittent, Less than 6 Hours Per Day (ICD-10-PCS; principal; 2025-03-23)
PROC: 5A09357 Assistance with Respiratory Ventilation, Less than 24 Consecutive Hours, Continuous Positive Airway Pressure (ICD-10-PCS; 2025-03-23)
PROC: 5A1D70Z Performance of Urinary Filtration, Intermittent, Less than 6 Hours Per Day (ICD-10-PCS; 2025-03-24)
PROC: 5A1D70Z Performance of Urinary Filtration, Intermittent, Less than 6 Hours Per Day (ICD-10-PCS; 2025-03-26)
PROC: 5A1D70Z Performance of Urinary Filtration, Intermittent, Less than 6 Hours Per Day (ICD-10-PCS; 2025-03-27)
DX: I13.2 Hypertensive heart and chronic kidney disease with heart failure and with stage 5 chronic kidney disease, or end stage renal disease (principal); I50.43 Acute on chronic combined systolic (congestive) and diastolic (congestive) heart failure; I21.A1 Myocardial infarction type 2; J96.21 Acute and chronic respiratory failure with hypoxia; N18.6 End stage renal disease; J44.1 Chronic obstructive pulmonary disease with (acute) exacerbation; Z20.822 Contact with and (suspected) exposure to COVID-19; I25.5 Ischemic cardiomyopathy; D69.6 Thrombocytopenia, unspecified; I25.10 Atherosclerotic heart disease of native coronary artery without angina pectoris; D63.1 Anemia in chronic kidney disease; E11.22 Type 2 diabetes mellitus with diabetic chronic kidney disease; Z95.810 Presence of automatic (implantable) cardiac defibrillator; Z95.5 Presence of coronary angioplasty implant and graft; Z99.2 Dependence on renal dialysis; Z79.82 Long term (current) use of aspirin; Z79.4 Long term (current) use of insulin
CPT/HCPCS: 36415; 36600; 71045; 80048; 80053; 80202; 82805; 82962; 83036; 83735; 83880; 84100; 84484; 85014; 85018; 85025; 87040; 87081; 87340; 87426; 87804; 90935; 93005; 94640; 94660; 96374; 97110; 97116; 97163; 97530; G0378; J1642; J1815; J2470; J3490

== ENCOUNTER 2025-04-27 06:59 | Inpatient (IN) | payer MEDICARE, MEDICAID ==
[~2025-04-27] VITALS: Ht 175.3 cm; Wt 74.8 kg
[2025-04-27] VITALS (10 sets, daily range): BP systolic 92–142; BP diastolic 60–80; PULSE 79–96; RESP 15–18; TEMP 98.2–98.4; O2SAT 95–100
--- NOTE | 2025-04-27 07:40 | ED.PDOC ---
HPI Comments 75 year old male with PMHx HTN, CHF, ESRD, COPD, CABG, pacemaker, defibrillator presents to the ED with a chief compliant of chest pain onset 4 days. Patient states he has been experiencing intermittent chest pain for the past 4 days described as a sharp pain. Patient noticed pain worsens with light exertion, causes shortness of breath. Prior to ED arrival patient took 3 0.4 Nitro SL, currently symptoms have improved. Patient has dialysis on Saturday, , Saturday, has not received dialysis today.. Denies fever, chills, nausea, vomiting, diarrhea, dizziness, headache, blurred vision dysuria, hematuria, hematemesis, numbness/tingling. No other symptoms or modifying pancreas present at this time. Chief Complaint: Chest Pain Time Seen by MD: 07:25 Primary Care Provider: UNKNOWN Reviewed Notes: Medications, Allergies Allergies: Coded Allergies: NO KNOWN ALLERGIES (Unverified , 01/05/24) Home Meds Active Scripts Carvedilol (COREG) 12.5 Mg Tab, 12.5 MG PO BID for 30 Days, #60 TAB 0 Refills Prov:CHRISSIE THOMAS MD 02/23/25 Magnesium Oxide (MAGNESIUM OXIDE) 400 Mg Tab, 1 TAB PO BID, #60 TAB 1 Refill Prov:MAYNOR WEBB 01/06/25 Ipratropium [place] (Ipratropium [place]) 0.02 % Brittany, 0.5 % HHN QIDP for 30 Days, #90 ML 3 Refills Prov:CRAIG NAZARIO MD 12/17/24 Albuterol Sulfate (Albuterol Sulfate) 1.25 Mg/3 Ml Neb, 1.25 MG IN QIDP for 30 Days, #90 INH 2 Refills Prov:CRAIG NAZARIO MD 12/17/24 Reported Medications Magnesium Oxide (Magnesium Oxide) 400 Mg Tab, 1 TAB PO DAILY for 90 Days, #90 10/29/24 Meloxicam (Meloxicam) 15 Mg Tab, 1 TAB PO DAILY for 30 Days, #30 10/29/24 Nitroglycerin (Nitrostat) 0.4 Mg Sub, 1 TAB PO UD for 33 Days, #100 10/29/24 Atorvastatin Calcium (ATORVASTATIN CALCIUM) 40 Mg Tab, 1 TAB PO DAILY for 90 Days, #90 10/29/24 Isosorbide Mononitrate (Isosorbide Mononitrate Er) 30 Mg Tab, 1 TAB PO DAILY for 90 Days, #90 10/29/24 Clopidogrel Bisulfate (CLOPIDOGREL) 75 Mg Tab, 1 TAB PO DAILY for 90 Days, #90 10/29/24 Ranolazine (Ranolazine ER) 500 Mg Tab, 1 TAB PO BID for 30 Days, #60 10/29/24 Furosemide (Furosemide) 40 Mg Tab, 1 TAB PO DAILY for 90 Days, #90 01/07/24 Ergocalciferol (Vitamin D) 50,000 Unit Cap, 1 CAP PO QWEEKLY 01/07/24 Omeprazole (Omeprazole Dr) 40 Mg Cap, 1 CAP PO DAILY for 90 Days, #90 01/07/24 Aspirin (Aspirin Low Dose) 81 Mg Chw, 1 TAB PO DAILY 01/07/24 Sevelamer Carbonate (Renvela) 800 Mg Tab, 2 TAB PO TID 01/07/24 Oxycodone HCl (Oxycodone Hydrochloride) 15 Mg Tab, 1 TAB PO QID for 30 Days, #120 01/07/24 Information Source: Patient Mode of Arrival: Wheelchair Severity: Moderate Timing: Days Duration: Intermittent Prehospital treatment: Other (Nitro) Location: Chest (L) Radiation: No Radiation Quality: Sharp Onset: At Rest Cardiac Risk Factors: HTN PE Risk Factors: None History of: Similar pain in past Modifying Factors: Nothing Associated Signs and Symptoms: SOB Past Medical History PAST MEDICAL HISTORY: CHF, COPD, ESRD, HTN Surgical History: CABG, Pacemaker Family History Family History: Reviewed,noncontributory to illness, Unknown Social History Smoker: Non-Smoker Alcohol: Denies ETOH Use Drugs: Denies Drug Use Lives In: Home Constitutional: denies: chills, diaphoresis, fatigue, fever, malaise, sweats, weakness, others EENTM: denies: blurred vision, double vision, ear bleeding, ear discharge, ear drainage, ear pain, ear ringing, eye pain, eye redness, hearing loss, mouth pain, mouth swelling, nasal discharge, nose bleeding, nose congestion, nose pain, photophobia, tearing, throat pain, throat swelling, voice changes, others Respiratory: denies: cough, hemoptysis, orthopnea, SOB at rest, shortness of breath, SOB with excertion, stridor, wheezing, others Cardiovascular: reports: chest pain; denies: dizzy spells, diaphoresis, Dyspnea on exertion, edema, irregular heart beat, left arm pain, lightheadedness, palpitations, PND, syncope, others Gastrointestinal: denies: abdomen distended, abdominal pain, blood streaked bowels, constipated, diarrhea, dysphagia, difficulty swallowing, hematemesis, melena, nausea, poor appetite, poor fluid intake, rectal bleeding, rectal pain, vomiting, others Genitourinary: denies: burning, dysuria, flank pain, frequency, hematuria, incontinence, penile discharge, penile sore, pain, testicle pain, testicle swelling, urgency, others Neurological: denies: dizziness, fainting, headache, left sided numbness, left sided weakness, numbness, paresthesia, pre-existing deficit, right sided n umbness, right sided weakness, seizure, speech problems, tingling, tremors, weakness, others Musculoskeletal: denies: back pain, gout, joint pain, joint swelling, muscle pain, muscle stiffness, neck pain, others Integumetry: denies: bruises, change in color, change in hair/nails, dryness, laceration, lesions, lumps, rash, wounds, others Allergic/Immunocompromised: denies: Difficulty Healing, Frequent Infections, Hives, Itching, others Hematologic/Lymphatic: denies: anemia, blood clots, easy bleeding, easy bruising, swollen glands, others Endocrine: denies: excessive hunger, excessive sweating, excessive thirst, excessive urination, flushing, intolerance to cold, intolerance to heat, unexplained weight gain, unexplained weight loss, others Psychiatric: denies: anxiety, bipolar disorder, depression, hopeless, panic disorder, schizophrenia, sleepless, suicidal, others All Other Systems: Reviewed and Negative Physical Exam General Appearance: Normal HEENT: Normal ENT Inspection, Pharynx Normal, TMs Normal Neck: Full Range of Motion, Non-Tender, Normal, Normal Inspection Respiratory: Chest Non-Tender, Lungs Clear, No Accessory Muscle Use, No Respiratory Distress, Normal Breath Sounds Cardiovascular: No Edema, No JVD, No Murmur, No Gallop, Normal Peripheral Pulses, Regular Rate/Rhythm Breast Exam: Deferred Gastrointestinal: No Organomegaly, Non Tender, No Pulsatile Mass, Normal Bowel Sounds, Soft Genitalia: Deferred Pelvic: Deferred Rectal: Deferred Extremities: No calf tenderness, Normal capillary refill, Normal inspection, Normal range of motion, Non-tender, No pedal edema Musculoskeletal : Apperance: Normal Neurologic: Alert, structures assembler II-XII nml as Tested, No Motor Deficits, Normal Affect, Normal Mood, No Sensory Deficits Cerebellar Function: Normal Reflexes: Normal Skin: Dry, Normal Color, Warm Lymphatic: No Adenopathy Was a procedure done? Was a procedure done?: No CP Differential Dx Differential Diagnosis: MAT, IL, PAC's Differential Diagnosis: CHF, HTN Essential, HTN Accelerated Differential Diagnosis: Gastritis, Myocardial Infarction, Pericarditis, Pneumonia X-Ray, Labs, Meds, VS Vital Signs Date Time Temp Pulse Resp B/P (MAP) Pulse Ox O2 Delivery O2 Flow Rate FiO2 04/27/25 09:10 79 15 95 Nasal Cannula* 2 28 04/27/25 08:30 81 04/27/25 08:30 75 04/27/25 08:27 98.1 79 15 128/68 (88) 95 98.1 04/27/25 07:06 86 04/27/25 07:05 97.6 83 18 124/66 96 97.6 Lab Test 04/27/25 08:39 04/27/25 07:30 Range/Units Troponin I High Sensitivity Pending 161 *H </=54 ng/L White Blood Count 6.2 4.4-10.8 10^3/uL Red Blood Count 3.65 L 4.5-5.90 10^6/uL Hemoglobin 11.8 L 13.5-17.5 g/dL Hematocrit 35.4 L 41.0-53.0 % Mean Corpuscular Volume 96.9 80.0-100.0 fL Mean Corpuscular Hemoglobin 32.3 H 28.0-32.0 pg Mean Corpuscular Hemoglobin Concent 33.3 32.0-36.0 g/dL Red Cell Distribution Width 16.4 H 11.8-14.3 % Platelet Count 163 140-450 10^3/uL Mean Platelet Volume 7.5 6.9-10.8 fL Neutrophils (%) (Auto) 60.2 37.0-80.0 % Lymphocytes (%) (Auto) 20.3 10.0-50.0 % Monocytes (%) (Auto) 16.6 H 0.0-12.0 % Eosinophils (%) (Auto) 2.2 0.0-7.0 % Basophils (%) (Auto) 0.7 0.0-2.0 % Neutrophils # (Auto) 3.7 1.6-8.6 10 ^3/uL Lymphocytes # (Auto) 1.3 0.4-5.4 10 ^3/uL Monocytes # (Auto) 1.0 0-1.3 10 ^3/uL Eosinophils # (Auto) 0.1 0-0.8 10 ^3/uL Basophils # (Auto) 0 0-0.2 10 ^3/uL Nucleated Red Blood Cells 0.1 % Sodium Level 134 L 136-145 mmol/L Potassium Level 5.4 H 3.5-5.1 mmol/L Chloride Level 88 L 98-107 mmol/L Carbon Dioxide Level 30 20-31 mmol/L Anion Gap 16 H 5-15 Blood Urea Nitrogen 87 *H 9-23 mg/dL Creatinine 10.84 *H 0.700-1.30 mg/dL Glomerular Filtration Rate Calc 5 >90 mL/min BUN/Creatinine Ratio 8.0 L 10.0-20.0 Serum Glucose 101 74-106 mg/dL Calcium Level 10.8 H 8.7-10.4 mg/dL [place] [id number] Ph: [phone] DIAGNOSTIC IMAGING Diagnostic Imaging Report : [id number] Signed PATIENT: MAXIMUS MAR JR ACCT: [id number] UNIT: [id number] : 1950 LOC: ER ROOM / BED: / AGE / SEX: 75 / M ADM STATUS: REG ER SERVICE 0734 ORDERING PHYSICIAN: KANG CHAVIRA MD PROCEDURE(s): CXRP - CHEST PORTABLE REASON: cp ORDER NUMBER(s): [id number], ACCESSION NUMBER(s): [id number] EXAM: XY CHEST PORTABLE Indication: cp Technique: Single frontal view of the chest was obtained Comparison: XY CHEST PORTABLE on DOS: 03/27/25, XY CHEST PORTABLE on DOS: 03/24/25, XY CHEST XRAY 1 VIEW on DOS: 03/23/25, XY CHEST XRAY 1 VIEW on DOS: 9/15/25, XY CHEST PORTABLE on DOS: 03/14/25 FINDINGS: Lines and Tubes: Cardiac pacemaker projects over the right chest wall. Lungs: Pulmonary edema. Pleura: Trace left pleural effusion. No pneumothorax. Cardiomediastinal contours: Cardiomegaly. Bones: No acute osseous abnormality. IMPRESSION: Cardiomegaly. Pulmonary edema. ATED BY: ANDREA VARGAS MD DICTATED DATE/TIME: 04/27/25809 SIGNED BY: ANDREA VARGAS MD SIGNED DATE/TIME: 04/27/25809 CC: Time of 1ST Reevaluation: 07:55 Reevaluation 1ST: Unchanged Patient Education/Counseling: Diagnosis, Treatment, Prognosis Family Education/Counseling: No Family Present SEPSIS Sepsis Screen Date sepsis recognized/suspect: Apr 27, 2025 Time Sepsis recognized/suspect: 704 Recent Procedure: No On Antibiotic Therapy: No Respiratory Rate >20: No Heart Rate >90: No Temp<36 C (96.8 F) or >38.3 C: No SBP <90 or MAP <65 mmHG: No New Acute Mental Status Change: No Is the patient on CPAP, BIPAP,: No Physician Orders Troponin-I Hs (04/27/25 08:04) Troponin-I Hs (04/27/25 10:04) Electrocardigram (04/27/25 08:04) Electrocardigram (04/27/25 10:04) Chest Portable (04/27/25 07:34) Vital Signs Date Time Temp Pulse Resp B/P (MAP) Pulse Ox O2 Delivery O2 Flow Rate FiO2 04/27/25 09:10 79 15 95 Nasal Cannula* 2 28 04/27/25 08:30 81 04/27/25 08:30 75 04/27/25 08:27 98.1 79 15 128/68 (88) 95 98.1 04/27/25 07:06 86 04/27/25 07:05 97.6 83 18 124/66 96 97.6 Laboratory Tests Test 04/27/25 07:30 White Blood Count 6.2 10^3/uL (4.4-10.8) Departure 1 Departure Time of Disposition: 09:20 (Patient presented with chest pain that was concerning for possible STEMI, ACS, PE, Pneumonia, Muscle Strain, COPD, Dissection. Data: 1. I ordered and reviewed the result of at least 3 labs including a CBC, BMP, and Troponin. 2. I independently interpreted the following tests: EKG which shows sinus arrhythmia and Chest X-ray which shows vascular congestion.Risk:This patient has a high risk of morbidity due to further diagnostic testing or treatment and may suffer from an acute cardiac or respiratory disorder. Workup reveals concern for ACS and patient should be admitted for further workup and possible expert consultation. ) Impression: Primary Impression: Acute chest pain Additional Impressions: Missed dialysis Shortness of breath Disposition: ADMITTED INPATIENT Admit to: Tele Condition: Guarded Critical Care Note Critical Care Time?: Yes Critical care comment: Acute chest pain Authorized and Performed by: Kang Chavira MD Total critical care time: Approximately 38 minutes Due to a high probability of clinically significant, life threatening deterioration, the patient required my highest level of preparedness to intervene emergently and I personally spent this critical care time directly and personally managing the patient. This critical care time included obtaining a history; examining the patient; pulse oximetry; ordering and review of studies; arranging urgent treatment with development of a management plan; evaluation of patient's response to treatment; frequent reassessment; and, discussions with other providers. This critical care time was performed to assess and manage the high probability of imminent, life-threatening deterioration that could result in multi-organ failure. It was exclusive of separately billable procedures and treating other p atients and teaching time. Please see my other sections and the rest of the note for further information on patient assessment and treatment. Stability Stability form required: No Heart Score Heart Score: Heart Score Response (Comments) Value History Moderate Suspicious 1 EKG Repolarization Disturb 1 Age >65 2 Risk Factors >3 or Hx ASHD 2 Troponin >3 x's Normal limit 2 Total 8 I personally scribed for KANG CHAVIRA MD ([email or web address]) on 04/27/25 at 07:40. Electronically submitted by Marlene Moralez ([email or web address]). I personally scribed for KANG CHAVIRA MD ([email or web address]) on 04/27/25 at 08:24. Electronically submitted by Marlene Moralez ([email or web address]). KANG CHAVIRA MD Apr 27, 2025 07:40
[2025-04-27 07:50] LABS: Hematocrit 35.4 % (41.0-53.0); Hemoglobin 11.8 g/dL (13.5-17.5); Mean Corpuscular Hemoglobin 32.3 pg (28.0-32.0); Mean Corpuscular Volume 96.9 fL (80.0-100.0); Nucleated Red Blood Cells % 0.1 %
[2025-04-27 07:57] LABS: Chloride 88 mmol/L (98-107); Potassium 5.4 mmol/L (3.5-5.1); Sodium 134 mmol/L (136-145)
[2025-04-27 07:58] LABS: Anion Gap 16 (5-15); Carbon Dioxide 30 mmol/L (20-31)
[2025-04-27 08:03] LABS: BUN/Creatinine Ratio 8.0 (10.0-20.0); Glucose 101 mg/dL (74-106)
[2025-04-27 08:08] LABS: Calcium 10.8 mg/dL (8.7-10.4)
[2025-04-27 08:10] LABS: Blood Urea Nitrogen 87 mg/dL (9-23)
--- NOTE | 2025-04-27 08:12 | DVH ---
EXAM: XY CHEST PORTABLE Indication: cp Technique: Single frontal view of the chest was obtained Comparison: XY CHEST PORTABLE on DOS: 03/27/25, XY CHEST PORTABLE on DOS: 03/24/25, XY CHEST XRAY 1 VIE W on DOS: 03/23/25, XY CHEST XRAY 1 VIEW on DOS: 03/22/25, XY CHEST PORTABLE on DOS: 03/14/25 FINDINGS: Lines and Tubes: Cardiac pacemaker projects over the right chest wall. Lungs: Pulmonary edema. Pleura: Trace left pleural effusion. No pneumothorax. Cardiomediastinal contours: Cardiomegaly. Bones: No acute osseous abnormality. IMPRESSION: Cardiomegaly. Pulmonary edema.
--- NOTE | 2025-04-27 08:33 | ECG ---
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
[2025-04-27] MEDS ORDERED: MORPHINE SULFATE INJ 2 MG/ml SYRG IV PRN ×2 (10:15→10:30)
[2025-04-27] MEDS ORDERED: ACETAMINOPHEN 325 MG TAB PO PRN (10:15)
[2025-04-27] MEDS ORDERED: HYDROcodone-ACET 5/325MG TAB PO PRN (10:15)
[2025-04-27] MEDS ORDERED: ONDANSETRON HCL 4 MG/2 ML VIAL IV PRN ×2 (10:15→10:30)
[2025-04-27] MEDS ORDERED: DOCUSATE SOD 100 MG CAP PO PRN ×2 (10:15→10:30)
[2025-04-27] MEDS ORDERED: NITROGLYCERIN 0.4 MG SL TAB SL PRN (10:15)
--- NOTE | 2025-04-27 10:22 | ECG ---
[facility] Test Date: 2025-04-27 Test Time: 10:19:10 Pat Name: MAXIMUS MAR Department: [facility] ED Room: 0272T Gender: M Typing Checker: GARRICK : 1950 Requested By: KANG CHAVIRA Order Number: [id number] Reading MD: Armaan Cardona Measurements Intervals [place] Rate: 80 P: -33 MI: 199 QRS: 5 QRSD: 114 T: -57 QT: 363 QTc: 419 Interpretive Statements Sinus rhythm Vent pre-excit'n(WPW), right access'y pathway Electronically Signed On 05-03-2025 13:47:20 PDT by Armaan Cardona Please click the below link to view image of tracing.
[2025-04-27] MEDS ORDERED: CARV6.2551 PO (10:24)
[2025-04-27] MEDS: FUROSEMIDE 100 MG/10ML VIAL IV ONE (10:36)
--- NOTE | 2025-04-27 12:00 | DVHHP2 ---
History of Present Illness Reason for Visit: Chest pain History of Present Illness Bernard Mccauley Jr is a 75-year-old male with past medical history of hypertension, coronary artery disease, CHF, ESRD on HD, and COPD, who came to the hospital for chest pain. Patient states he has been experiencing chest pain for about 1 week. He states it feels like a heaviness, worse with exertion, deep breaths, and laying down, with an associated cough and right hand numbness. Patient was scheduled to have HD this morning. However, when he called and explained his symptoms he was instructed to go to the hospital to be evaluated. Cardiovascular: CAD, CHF, HTN, hyperipidemia, Other (PTCA with stent, CABG) Pulmonary: COPD Renal/: Chronic renal failure (on HD ,,SAT) Past Surgical History: CABG (2023) Smoke: No ALCOHOL: none Drugs: None Lives: with Family Review of Systems Constitutional: No: Fever, Chills, Sweats, Weakness, Malaise, Other Eyes: No: Pain, Vision change, Conjunctivae inflammation, Eyelid inflammation, Other, Redness ENT: No: Ear pain, Ear discharge, Nose pain, Nose discharge, Nose congestion, Mouth pain, Mouth swelling, Throat pain, Throat swelling, Other Respiratory: Cough, Shortness of breath; No: Dry, SOB with excertion, Wheezing, Hemoptysis, Pleuritic Pain, Sputum, Wheezing, Other Cardiovascular: Chest Pain; No: Palpitations, Orthopnea, Paroxysmal Noc. Dyspnea, Edema, Lt Headedness, Other Gastrointestinal: No: Nausea, Vomiting, Abdominal Pain, Diarrhea, Constipation, Melena, Hematochezia, Other Genitourinary: No Dysuria, No Frequency, No Incontinence, No Hematuria, No Retention, No Other Musculoskeletal: No: other, neck pain, shoulder pain, arm pain, back pain, hand pain, leg pain, foot pain Skin: No: Rash, Lesions, Jaundice, Bruising, Other Neurological: Numbness (right hand); No: Weakness, Incoordination, Change in speech, Confusion, Seizures, Other Allergies: Coded Allergies: NO KNOWN ALLERGIES (Unverified , 01/05/24) Medications Current Medications Medications Dose Ordered Sig/Edson Route Start Time Stop Time Status Last Admin Dose Admin Sodium Chloride 10 ml Q8HR IV 04/27/25 14:00 UNV Acetaminophen/ Hydrocodone Bitart 1 tab Q4HP PRN PO 04/27/25 10:15 UNV Ondansetron HCl 4 mg Q4HP PRN IV 04/27/25 10:15 UNV Docusate Sodium 100 mg BIDPRN PRN PO 04/27/25 10:15 UNV Acetaminophen 650 mg Q6HP PRN PO 04/27/25 10:15 UNV Nitroglycerin 0.4 mg Q5MINP PRN SL 04/27/25 10:15 UNV Morphine Sulfate 2 mg Q30M PRN IV 04/27/25 10:15 UNV Exam Vital Signs Vital Signs Date Time Temp Pulse Resp B/P (MAP) Pulse Ox O2 Delivery O2 Flow Rate FiO2 04/27/25 09:10 79 15 95 Nasal Cannula* 2 28 04/27/25 08:27 98.1 128/68 (88) 98.1 General Appearance: Alert, Oriented X3, Cooperative, moderate distress HEENT: Atraumatic, PERRLA Respiratory: Other (Diminished breath sounds) Cardiovascular: Regular rate, Normal S1, Normal S2, Other (left arm fistula) Abdominal: Normal bowel sounds, Soft, No tenderness Extremities: No clubbing, No cyanosis, No edema, Normal pulses Skin: No breakdown, No significant lesion Neuro: Normal gait, Normal speech, Strength at 5/5 X4 ext Psych/Mental Status: Mental status NL, Mood NL Labs/Xrays Labs Test 04/27/25 08:39 04/27/25 07:30 Range/Units Troponin I High Sensitivity 155 *H </=54 ng/L White Blood Count 6.2 4.4-10.8 10^3/uL Red Blood Count 3.65 L 4.5-5.90 10^6/uL Hemoglobin 11.8 L 13.5-17.5 g/dL Hematocrit 35.4 L 41.0-53.0 % Mean Corpuscular Volume 96.9 80.0-100.0 fL Mean Corpuscular Hemoglobin 32.3 H 28.0-32.0 pg Mean Corpuscular Hemoglobin Concent 33.3 32.0-36.0 g/dL Red Cell Distribution Width 16.4 H 11.8-14.3 % Platelet Count 163 140-450 10^3/uL Mean Platelet Volume 7.5 6.9-10.8 fL Neutrophils (%) (Auto) 60.2 37.0-80.0 % Lymphocytes (%) (Auto) 20.3 10.0-50.0 % Monocytes (%) (Auto) 16.6 H 0.0-12.0 % Eosinophils (%) (Auto) 2.2 0.0-7.0 % Basophils (%) (Auto) 0.7 0.0-2.0 % Neutrophils # (Auto) 3.7 1.6-8.6 10 ^3/uL Lymphocytes # (Auto) 1.3 0.4-5.4 10 ^3/uL Monocytes # (Auto) 1.0 0-1.3 10 ^3/uL Eosinophils # (Auto) 0.1 0-0.8 10 ^3/uL Basophils # (Auto) 0 0-0.2 10 ^3/uL Nucleated Red Blood Cells 0.1 % Sodium Level 134 L 136-145 mmol/L Potassium Level 5.4 H 3.5-5.1 mmol/L Chloride Level 88 L 98-107 mmol/L Carbon Dioxide Level 30 20-31 mmol/L Anion Gap 16 H 5-15 Blood Urea Nitrogen 87 *H 9-23 mg/dL Creatinine 10.84 *H 0.700-1.30 mg/dL Glomerular Filtration Rate Calc 5 >90 mL/min BUN/Creatinine Ratio 8.0 L 10.0-20.0 Serum Glucose 101 74-106 mg/dL Calcium Level 10.8 H 8.7-10.4 mg/dL EXAM: XY CHEST PORTABLE FINDINGS: Lines and Tubes: Cardiac pacemaker projects over the right chest wall. Lungs: Pulmonary edema. Pleura: Trace left pleural effusion. No pneumothorax. Cardiomediastinal contours: Cardiomegaly. Bones: No acute osseous abnormality. IMPRESSION: Cardiomegaly. Pulmonary edema. SEPSIS Sepsis Screen Date sepsis recognized/suspect: Apr 27, 2025 Time Sepsis recognized/suspect: 09 Recent Procedure: No On Antibiotic Therapy: No Respiratory Rate >20: No Heart Rate >90: No Temp<36 C (96.8 F) or >38.3 C: No SBP <90 or MAP <65 mmHG: No New Acute Mental Status Change: No Is the patient on CPAP, BIPAP,: No Physician Orders Troponin-I Hs (04/27/25 10:04) Electrocardigram (04/27/25 10:04) Chest Portable (04/27/25 07:34) *Dr. Mariel Menendez -Gareth Knowles (04/27/25 09:37) Admit (04/27/25 10:10) Code Status (04/27/25 10:10) Sodium Chloride Lock (Saline Lock Ns) (04/27/25 14:00) Hydrocodone-Acet 5/325mg Tab ([place] 5/32 (04/27/25 10:15) Ondansetron Hcl (Zofran) (04/27/25 10:15) Docusate Sodium Capsule (Colace Capsule) (04/27/25 10:15) Complete Blood Count (04/28/25 04:00) Comprehensive Metabolic Panel (04/28/25 04:00) Cardiac Diet-2gna,Lofat,Lochol (04/27/25 Lunch) Condition: Serious (04/27/25 10:10) Acetaminophen Tablet (Tylenol Tablet) (04/27/25 10:15) Nitroglycerin Sublingual (Ntrostat Subli (04/27/25 10:15) Morphine Sulfate Injection (04/27/25 10:15) Stat Ekg For Chest Pain (04/27/25 10:10) Notify Md Of Changes From Base (04/27/25 10:10) Plastics Supervisor For 24 Hours (04/27/25 10:10) Emergency Dysrhythmia Protocol (04/27/25 10:10) Rhythm Strips Once Every Shift (04/27/25 10:10) Oxygen By Nasal Cannula (04/27/25 10:10) * Cardiology Consult (04/27/25 10:21) Clopidogrel Bisulfate (Plavix) (04/28/25 10:00) Vital Signs Date Time Temp Pulse Resp B/P (MAP) Pulse Ox O2 Delivery O2 Flow Rate FiO2 04/27/25 09:10 79 15 95 Nasal Cannula* 2 28 04/27/25 08:30 81 04/27/25 08:30 75 04/27/25 08:27 98.1 79 15 128/68 (88) 95 98.1 04/27/25 07:06 86 04/27/25 07:05 97.6 83 18 124/66 96 97.6 Laboratory Tests Test 04/27/25 07:30 White Blood Count 6.2 10^3/uL (4.4-10.8) Assessment/Plan Assessment/Plan Assessment: Elevated troponin, Fluid overload, Pulmonary edema, ESRD on HD, CHF, Hypertension, COPD, Plan: Admit to Tele, Nephrology consult, Cardiology consult, IV Lasix, Breathing treatments as needed, Supplemental oxygen, Home medications reconciled, Plan discussed with: Patient, Spouse My Orders Orders - LADONNA LENTZ Procedure Category Date Status Time *Dr. Mariel Menendez -Da CONS 04/27/25 Transmitted Eleni 09:37 Admit ADMIT 04/27/25 Transmitted 10:10 Code Status CODE 04/27/25 Transmitted 10:10 Sodium Chloride Lock PHA 04/27/25 Logged (Saline Lock Ns) 14:00 Hydrocodone-Acet PHA 04/27/25 Logged 5/325mg Tab ([place] 10:15 Ondansetron Hcl PHA 04/27/25 Logged (Zofran) 10:15 Docusate Sodium PHA 04/27/25 Logged Capsule (Colace 10:15 Complete Blood Count LAB 04/28/25 Verified 04:00 Comprehensive LAB 04/28/25 Verified Metabolic Panel 04:00 Cardiac DIET 04/27/25 Transmitted Diet-2gna,Lofat,Lochol Lunch Condition: Serious RADHA 04/27/25 In Process 10:10 Acetaminophen Tablet PHA 04/27/25 Logged (Tylenol Tablet) 10:15 Nitroglycerin PHA 04/27/25 Logged Sublingual (Ntrostat 10:15 Morphine Sulfate PHA 04/27/25 Logged Injection 10:15 Stat Ekg For Chest RADHA 04/27/25 In Process Pain 10:10 Notify Md Of Changes RADHA 04/27/25 In Process From Base 10:10 Plastics Supervisor For RADHA 04/27/25 In Process 24 Hours 10:10 Emergency Dysrhythmia RDAHA 04/27/25 In Process Protocol 10:10 Rhythm Strips Once RADHA 04/27/25 In Process Every Shift 10:10 Oxygen By Nasal RT 04/27/25 Transmitted Cannula 10:10 * Cardiology Consult CONS 04/27/25 Verified 10:21 Clopidogrel Bisulfate PHA 04/28/25 Verified (Plavix) 10:00 Date of Service: Apr 27, 2025 Billing Provider: LADONNA LENTZ Common Visit Codes: [id number] INP/OBS CARE (HIGH) LADONNA LENTZP Apr 27, 2025 12:00
[2025-04-27] MEDS: HYDROcodone-ACET 5/325MG TAB PO PRN (12:52)
[2025-04-27] MEDS: SEVELAMER 800 MG TAB PO SCH (13:25)
[2025-04-27] MEDS ORDERED: SODIUM CHLOR 0.9% PF (SALINE LOCK) 10ML VIAL/SYR IV SCH (14:00)
[2025-04-27] MEDS ORDERED: PATIENTS OWN MEDICATION (Sevelamer Carbonate (Renvela) 2 TAB) PO SCH (14:00)
[2025-04-27] MEDS: SODIUM CHLOR 0.9% PF (SALINE LOCK) 10ML VIAL/SYR IV SCH (14:00)
[2025-04-27] MEDS: NITROGLYCERIN 0.4 MG SL TAB SL PRN (14:52)
--- NOTE | 2025-04-27 16:50 | DVHINCON2 ---
Date of service: Apr 27, 2025 History of Present Illness HPI Patient is a 75-year-old gentleman who presented with few days of intermittent sharp chest pains. They worsened with lying down. It was accompanied with cough and shortness of breath. Cardiology is involved for cardiac aspects of care. His troponin has been mildly elevated. Patient is known to our practice from outside and before. He mentions that he missed his hemodialysis secondary to chest discomfort. Home Meds Active Scripts Magnesium Oxide (MAGNESIUM OXIDE) 400 Mg Tab, 1 TAB PO BID, #60 TAB 1 Refill Prov:MAYNOR WEBB 01/06/25 Ipratropium Escalante (Ipratropium Escalante) 0.02 % Brittany, 0.5 % HHN QIDP for 30 Days, #90 ML 3 Refills Prov:CRAIG NAZARIO MD 12/17/24 Albuterol Sulfate (Albuterol Sulfate) 1.25 Mg/3 Ml Neb, 1.25 MG IN QIDP for 30 Days, #90 INH 2 Refills Prov:CRAIG NAZARIO MD 12/17/24 Reported Medications Carvedilol (Carvedilol) 6.25 Mg Tab, 1 TAB PO BID, #180 TAB 1 Refill 04/27/25 Meloxicam (Meloxicam) 15 Mg Tab, 1 TAB PO DAILY for 30 Days, #30 10/29/24 Nitroglycerin (Nitrostat) 0.4 Mg Sub, 1 TAB PO UD for 33 Days, #100 10/29/24 Atorvastatin Calcium (ATORVASTATIN CALCIUM) 40 Mg Tab, 1 TAB PO DAILY for 90 Days, #90 10/29/24 Isosorbide Mononitrate (Isosorbide Mononitrate Er) 30 Mg Tab, 1 TAB PO DAILY for 90 Days, #90 10/29/24 Clopidogrel Bisulfate (CLOPIDOGREL) 75 Mg Tab, 1 TAB PO DAILY for 90 Days, #90 10/29/24 Ranolazine (Ranolazine ER) 500 Mg Tab, 1 TAB PO BID for 30 Days, #60 10/29/24 Furosemide (Furosemide) 40 Mg Tab, 1 TAB PO DAILY for 90 Days, #90 01/07/24 Ergocalciferol (Vitamin D) 50,000 Unit Cap, 1 CAP PO QWEEKLY 01/07/24 Omeprazole (Omeprazole Dr) 40 Mg Cap, 1 CAP PO DAILY for 90 Days, #90 01/07/24 Aspirin (Aspirin Low Dose) 81 Mg Chw, 1 TAB PO DAILY 01/07/24 Sevelamer Carbonate (Renvela) 800 Mg Tab, 2 TAB PO TID 01/07/24 Oxycodone HCl (Oxycodone Hydrochloride) 15 Mg Tab, 1 TAB PO QID for 30 Days, #120 01/07/24 Discontinued Reported Medications Magnesium Oxide (Magnesium Oxide) 400 Mg Tab, 1 TAB PO DAILY for 90 Days, #90 10/29/24 Discontinued Scripts Carvedilol (COREG) 12.5 Mg Tab, 12.5 MG PO BID for 30 Days, #60 TAB 0 Refills Prov:CHRISSIE THOMAS MD 02/23/25 Past Medical History Others Past medical history includes end-stage renal disease on hemodialysis, coronary artery disease and status post CABG and PCI, ischemic cardiomyopathy, systolic heart failure, status post right nephrectomy, COPD on home oxygen, hypertension, hyperlipidemia, diabetes mellitus, gallstones, BPH, history of symptomatic V- tach and status post ICD (Biotronik) implantation. He has had pneumonia recently. It is of note that patient's saddle tree stitcher was Dr. 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 Patient has had PCI previously. On September 01, 2024 patient had PCI of LAD (shockwave) by Dr. Cardona. Patient Family History: FH: cancer G8 MOTHER FH: heart disease G8 FATHER Smoker: Quit Review of Systems Constitutional: No symptom reported Ears, Nose, & Throat: No symptom reported Pulmonary/Respiratory: Dyspnea Cardiovascular: Chest Pain Gastrointestinal: No symptom reported All Other Systems Fourteen point review of system was performed. Relevant findings as per above and as per HPI. Otherwise negative. H&P Exam Vital Signs Vital Signs Date Time Temp Pulse Resp B/P (MAP) Pulse Ox O2 Delivery O2 Flow Rate FiO2 04/27/25 15:01 129/69 04/27/25 14:52 96 Nasal Cannula 2.0 04/27/25 14:52 28 04/27/25 14:50 98.2 87 18 98.2 General Appeara: Well developed Head Exam: Normal inspection Eye Exam: bilateral eye PERRL Mouth: Normal Inspection Pulmonary/Respiratory: Rhonci Cardiovascular/Chest: Regular rate, Systolic murmur Peripheral Pulses: 2+ carotid (R), 2+ carotid (L), 2+ femoral (R), 2+ femoral (L) Abdominal Exam: Normal bowel sounds, Soft Neuro/Mental St: Alert, Oriented Appearance: Appropriate appearance Eye contact/ Speech: Cooperative Labs/Xrays Labs Test 04/27/25 10:36 04/27/25 07:30 Range/Units Troponin I High Sensitivity 164 *H </=54 ng/L White Blood Count 6.2 4.4-10.8 10^3/uL Red Blood Count 3.65 L 4.5-5.90 10^6/uL Hemoglobin 11.8 L 13.5-17.5 g/dL Hematocrit 35.4 L 41.0-53.0 % Mean Corpuscular Volume 96.9 80.0-100.0 fL Mean Corpuscular Hemoglobin 32.3 H 28.0-32.0 pg Mean Corpuscular Hemoglobin Concent 33.3 32.0-36.0 g/dL Red Cell Distribution Width 16.4 H 11.8-14.3 % Platelet Count 163 140-450 10^3/uL Mean Platelet Volume 7.5 6.9-10.8 fL Neutrophils (%) (Auto) 60.2 37.0-80.0 % Lymphocytes (%) (Auto) 20.3 10.0-50.0 % Monocytes (%) (Auto) 16.6 H 0.0-12.0 % Eosinophils (%) (Auto) 2.2 0.0-7.0 % Basophils (%) (Auto) 0.7 0.0-2.0 % Neutrophils # (Auto) 3.7 1.6-8.6 10 ^3/uL Lymphocytes # (Auto) 1.3 0.4-5.4 10 ^3/uL Monocytes # (Auto) 1.0 0-1.3 10 ^3/uL Eosinophils # (Auto) 0.1 0-0.8 10 ^3/uL Basophils # (Auto) 0 0-0.2 10 ^3/uL Nucleated Red Blood Cells 0.1 % Sodium Level 134 L 136-145 mmol/L Potassium Level 5.4 H 3.5-5.1 mmol/L Chloride Level 88 L 98-107 mmol/L Carbon Dioxide Level 30 20-31 mmol/L Anion Gap 16 H 5-15 Blood Urea Nitrogen 87 *H 9-23 mg/dL Creatinine 10.84 *H 0.700-1.30 mg/dL Glomerular Filtration Rate Calc 5 >90 mL/min BUN/Creatinine Ratio 8.0 L 10.0-20.0 Serum Glucose 101 74-106 mg/dL Calcium Level 10.8 H 8.7-10.4 mg/dL Assessment/Plan Plan Patient is a 75-year-old gentleman who presented with few days of intermittent sharp chest pains. They worsened with lying down. It was accompanied with cough and shortness of breath. Cardiology is involved for cardiac aspects of care. His troponin has been mildly elevated. Patient is known to our practice from outside and before. He mentions that he missed his hemodialysis secondary to chest discomfort. Not in acute distress. Lying flat in bed. No JVD. Mucosa is pink and wet. No carotid bruit. Scattered rhonchi in the lungs is heard. No rales. Cardiac: Regular, no thrill. Systolic murmur 2/6 in the apex is heard. Abdomen is soft. There is no gross mass/hepatomegaly. Bowel sound is positive. Extremities do not reveal edema. Dorsalis pedis is 2+ bilateral Past medical history includes end-stage renal disease on hemodialysis, coronary artery disease and status post CABG and PCI, ischemic cardiomyopathy, systolic heart failure, status post right nephrectomy, COPD on home oxygen, hypertension, hyperlipidemia, diabetes mellitus, gallstones, BPH, history of symptomatic V- tach and status post ICD (Biotronik) implantation. He has had pneumonia recently. It is of note that patient's saddle tree stitcher was Dr. 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 Patient has had PCI previously. On September 01, 2024 patient had PCI of LAD (shockwave) by Dr. Cardona. Echocardiogram of October 30, 2024 (performed in [facility]) revealed ejection fraction of 35-40%, moderate /MR Echocardiogram of February 21, 2025 revealed ejection fraction of 35-40%, ischemic cardiomyopathy, possible WA in LCX/RCA territory, optimal moderate aortic stenosis, [id number] mitral regurgitation, [id number] tricuspid regurgitation and right ventricular systolic pressure of 39 mm Hg Left heart catheterization of October 23, [address] INTERPRETER of RCA and LCX. P atent stent in LAD. SVG to diagonal (small-vessel) was patent. Thomas to diagonal was patent with no disease. (Images reviewed and thomas may actually have been to ramus intermedius). There was no bypass to the RCA territory. Creatinine: 10.84 Potassium: 5.4 Hemoglobin: 11.8 Troponin (high sensitive): 161 - 155 - 164 Chest x-ray revealed: IMPRESSION: Cardiomegaly. Pulmonary edema. EKG revealed sinus rhythm, old inferior WA, left ventricular hypertrophy Tele reveals sinus rhythm Patient is a 75-year-old gentleman who presented with chest discomfort for around a week. Mentions compliant with medications. Is found to have minimally elevated troponin. Does have history of coronary artery disease and has had CABG/PCI before. Presentation could be secondary to unstable angina/non-STEMI. Had missed his hemodialysis. Does have history of noncompliance with medications and followups. Was found to have mild increase in troponin. Does have baseline history of coronary artery disease and has had PCI in August 2024 and repeated cardiac catheterization was performed in October 2024. Patient has presented with repeated chest discomforts. Recognizing the presentation, repeat left heart catheterization can be justified. Unstable angina/non-STEMI History of coronary artery disease, status post CABG/PCI Acute on chronic systolic heart failure Ventricular tachycardia, history Noncompliant with hemodialysis Ischemic cardiomyopathy End-stage renal disease on hemodialysis Noncompliant with hemodialysis Gallstones Questionable pneumonia Cardiac suggestion for management: Manage on telemetry Follow-up electrolytes and kidney function tests and correct abnormalities Repeated/aggressive hemodialysis For now, heparin drip Echocardiogram Left heart catheterization, tentatively tomorrow Carvedilol: 12.5 mg p.o. b.i.d. Continuation of aspirin/Plavix (81 mg/75 mg) is advised Thank you for consultation Further evaluation and management depends on the above and clinical course A total of 75 minutes was spent reviewing the patient record, examining the patient, making a diagnostic and therapeutic plan, discussing this plan with medical personnel, following up on diagnostic studies and following the patient for clinical stability excluding any and all procedures. At least 50% of this time was spent in direct, [id number] contact. Thank you for allowing me to participate in this patient's care. Further recommendations will depend on patient's clinical course. Please do not hesitate to contact me if you have any questions or concerns. This medical document was created using electronic medical record system with [employer] dictation system. Although this document has been carefully reviewed, there may still be some phonetic and typographical errors. These areas are purely typographical due to the imperfection of the software programs, and do not reflect any compromise in the patient's medical care. Plan discussed with: Patient, Other (nurse) JOSE DONNELLY MD Apr 27, 2025 16:50
--- NOTE | 2025-04-27 17:17 | DVHINCON2 ---
Date of service: Apr 27, [address] Alonzo Reason for Consultation End-stage kidney disease History of Present Illness 75-year-old male with history of end-stage kidney disease on hemodialysis, coronary artery disease status post CABG presenting to the emergency room because of intermittent chest pain which has been going on for the past one week. This is associated with shortness of breath and numbness to his right hand. Patient has extensive cardiac history. Evaluated by Cardiology. Scheduled for left heart catheterization tomorrow. Nephrology has been consulted for continuation of dialysis. His last dialysis was on Saturday. Past Medical History Cardiovascular: CAD, CHF, HTN, hyperipidemia, Other (PTCA with stent, CABG) Pulmonary: COPD Renal/: End-stage kidney disease (on HD ,,SAT) Past Surgical History Past Surgical History: CABG (2023) Family History: FH: cancer G8 MOTHER FH: heart disease G8 FATHER Social History No active history of smoking, alcohol or drug abuse Allergies: Coded Allergies: NO KNOWN ALLERGIES (Unverified , 01/05/24) Home Meds Active Scripts Magnesium Oxide (MAGNESIUM OXIDE) 400 Mg Tab, 1 TAB PO BID, #60 TAB 1 Refill Prov:MAYNOR WEBB 01/06/25 Ipratropium Shohola (Ipratropium Shohola) 0.02 % Brittany, 0.5 % HHN QIDP for 30 Days, #90 ML 3 Refills Prov:CRAIG NAZARIO MD 12/17/24 Albuterol Sulfate (Albuterol Sulfate) 1.25 Mg/3 Ml Neb, 1.25 MG IN QIDP for 30 Days, #90 INH 2 Refills Prov:CRAIG NAZARIO MD 12/17/24 Reported Medications Carvedilol (Carvedilol) 6.25 Mg Tab, 1 TAB PO BID, #180 TAB 1 Refill 04/27/25 Meloxicam (Meloxicam) 15 Mg Tab, 1 TAB PO DAILY for 30 Days, #30 10/29/24 Nitroglycerin (Nitrostat) 0.4 Mg Sub, 1 TAB PO UD for 33 Days, #100 10/29/24 Atorvastatin Calcium (ATORVASTATIN CALCIUM) 40 Mg Tab, 1 TAB PO DAILY for 90 Days, #90 10/29/24 Isosorbide Mononitrate (Isosorbide Mononitrate Er) 30 Mg Tab, 1 TAB PO DAILY for 90 Days, #90 10/29/24 Clopidogrel Bisulfate (CLOPIDOGREL) 75 Mg Tab, 1 TAB PO DAILY for 90 Days, #90 10/29/24 Ranolazine (Ranolazine ER) 500 Mg Tab, 1 TAB PO BID for 30 Days, #60 10/29/24 Furosemide (Furosemide) 40 Mg Tab, 1 TAB PO DAILY for 90 Days, #90 01/07/24 Ergocalciferol (Vitamin D) 50,000 Unit Cap, 1 CAP PO QWEEKLY 01/07/24 Omeprazole (Omeprazole Dr) 40 Mg Cap, 1 CAP PO DAILY for 90 Days, #90 01/07/24 Aspirin (Aspirin Low Dose) 81 Mg Chw, 1 TAB PO DAILY 01/07/24 Sevelamer Carbonate (Renvela) 800 Mg Tab, 2 TAB PO TID 01/07/24 Oxycodone HCl (Oxycodone Hydrochloride) 15 Mg Tab, 1 TAB PO QID for 30 Days, #120 01/07/24 Discontinued Reported Medications Magnesium Oxide (Magnesium Oxide) 400 Mg Tab, 1 TAB PO DAILY for 90 Days, #90 10/29/24 Discontinued Scripts Carvedilol (COREG) 12.5 Mg Tab, 12.5 MG PO BID for 30 Days, #60 TAB 0 Refills Prov:CHRISSIE THOMAS MD 02/23/25 Current Medications Current Medications Medications (Trade) Dose Ordered Sig/Edson Route PRN Reason Start Time Stop Time Status Last Admin Sodium Chloride (Saline Lock Ns) 10 ml Q8HR IV 04/27/25 14:00 04/27/25 10:24 DC Acetaminophen/ Hydrocodone Bitart (Sharon 5/325MG Tab) 1 tab Q4HP PRN PO MODERATE PAIN (4-6 PAIN SCALE) 04/27/25 10:15 04/27/25 10:24 DC Ondansetron HCl (Zofran) 4 mg Q4HP PRN IV NAUSEA / VOMITING 04/27/25 10:15 04/27/25 10:24 DC Docusate Sodium (Colace Capsule) 100 mg BIDPRN PRN PO FOR CONSTIPATION 04/27/25 10:15 04/27/25 10:24 DC Acetaminophen (Tylenol Tablet) 650 mg Q6HP PRN PO PAIN SCALE 1-3 OR TEMP>100.4 04/27/25 10:15 04/27/25 10:24 DC Nitroglycerin (Ntrostat Sublingual) 0.4 mg Q5MINP PRN SL FOR CHEST PAIN 04/27/25 10:15 04/27/25 10:24 DC Morphine Sulfate 2 mg Q30M PRN IV FOR CHEST PAIN 04/27/25 10:15 04/27/25 10:24 DC Clopidogrel Bisulfate (Plavix) 75 mg DAILY PO 04/28/25 10:00 04/27/25 10:24 DC Patient Own Medication 1 tab DAILY PO 04/28/25 10:00 04/27/25 10:24 DC Patient Own Medication 1 tab DAILY PO 04/28/25 10:00 04/27/25 10:24 DC Patient Own Medication 1 tab BID PO 04/27/25 22:00 04/27/25 10:24 DC Patient Own Medication 2 tab TID PO 04/27/25 14:00 04/27/25 10:24 DC Sodium Chloride (Saline Lock Ns) 10 ml Q8HR IV 04/27/25 14:00 Ondansetron HCl (Zofran) 4 mg Q4HP PRN IV NAUSEA / VOMITING 04/27/25 10:30 Morphine Sulfate 2 mg Q30M PRN IV FOR CHEST PAIN 04/27/25 10:30 Acetaminophen/ Hydrocodone Bitart (Sharon 5/325MG Tab) 1 tab Q4HP PRN PO MODERATE PAIN (4-6 PAIN SCALE) 04/27/25 10:30 04/27/25 12:52 Docusate Sodium (Colace Capsule) 100 mg BIDPRN PRN PO FOR CONSTIPATION 04/27/25 10:30 Acetaminophen (Tylenol Tablet) 650 mg Q6HP PRN PO PAIN SCALE 1-3 OR TEMP>100.4 04/27/25 10:30 Nitroglycerin (Ntrostat Sublingual) 0.4 mg Q5MINP PRN SL FOR CHEST PAIN 04/27/25 10:30 04/27/25 15:01 Clopidogrel Bisulfate (Plavix) 75 mg DAILY PO 04/28/25 10:00 Aspirin 81 mg DAILY PO 04/28/25 10:00 Atorvastatin Calcium (Lipitor) 40 mg HS PO 04/27/25 22:00 Magnesium Oxide (Mag-Ox Tablet) 400 mg BID PO 04/27/25 22:00 Sevelamer HCl (Renagel) 1,600 mg TIDWM PO 04/27/25 12:00 04/27/25 13:25 Ipratropium Shohola (Atrovent Medneb) 0.5 mg Q6HPRN PRN NEB SHORTNESS OF BREATH 04/27/25 14:30 Albuterol (Ventolin Medneb) 2.5 mg Q6HPRN PRN NEB SHORTNESS OF BREATH 04/27/25 14:30 Heparin Sodium/ Dextrose 250 ml @ 8.34 mls/hr Q24H IV 04/27/25 16:45 UNV Amiodarone HCl (Cordarone Tablet) 200 mg HS PO 04/27/25 22:00 Review of Systems 12 point review of system negative except as stated in the HPI Vital Signs Vital Signs Date Time Temp Pulse Resp B/P (MAP) Pulse Ox O2 Delivery O2 Flow Rate FiO2 04/27/25 16:51 98.2 88 16 92/60 (71) 96 98.2 04/27/25 15:39 Nasal Cannula* 2 28 Physical Exam Awake alert oriented x3 HEENT: Normocephalic, no JVD Lungs: Bilateral good air entry CVS: S1, S2 regular rate rhythm Abdomen: Soft, bowel sounds present 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 DUSTING: No focal deficits Labs/Diagnostic Data Labs Test 04/27/25 10:36 04/27/25 07:30 Range/Units Troponin I High Sensitivity 164 *H </=54 ng/L White Blood Count 6.2 4.4-10.8 10^3/uL Red Blood Count 3.65 L 4.5-5.90 10^6/uL Hemoglobin 11.8 L 13.5-17.5 g/dL Hematocrit 35.4 L 41.0-53.0 % Mean Corpuscular Volume 96.9 80.0-100.0 fL Mean Corpuscular Hemoglobin 32.3 H 28.0-32.0 pg Mean Corpuscular Hemoglobin Concent 33.3 32.0-36.0 g/dL Red Cell Distribution Width 16.4 H 11.8-14.3 % Platelet Count 163 140-450 10^3/uL Mean Platelet Volume 7.5 6.9-10.8 fL Neutrophils (%) (Auto) 60.2 37.0-80.0 % Lymphocytes (%) (Auto) 20.3 10.0-50.0 % Monocytes (%) (Auto) 16.6 H 0.0-12.0 % Eosinophils (%) (Auto) 2.2 0.0-7.0 % Basophils (%) (Auto) 0.7 0.0-2.0 % Neutrophils # (Auto) 3.7 1.6-8.6 10 ^3/uL Lymphocytes # (Auto) 1.3 0.4-5.4 10 ^3/uL Monocytes # (Auto) 1.0 0-1.3 10 ^3/uL Eosinophils # (Auto) 0.1 0-0.8 10 ^3/uL Basophils # (Auto) 0 0-0.2 10 ^3/uL Nucleated Red Blood Cells 0.1 % Sodium Level 134 L 136-145 mmol/L Potassium Level 5.4 H 3.5-5.1 mmol/L Chloride Level 88 L 98-107 mmol/L Carbon Dioxide Level 30 20-31 mmol/L Anion Gap 16 H 5-15 Blood Urea Nitrogen 87 *H 9-23 mg/dL Creatinine 10.84 *H 0.700-1.30 mg/dL Glomerular Filtration Rate Calc 5 >90 mL/min BUN/Creatinine Ratio 8.0 L 10.0-20.0 Serum Glucose 101 74-106 mg/dL Calcium Level 10.8 H 8.7-10.4 mg/dL Assessment End-stage kidney disease on hemodialysis Non ST-elevation RI History of coronary artery disease status post CABG Hyperkalemia Plan/Recommendation Hemodialysis today. Evaluated by Cardiology. Scheduled for left heart catheterization tomorrow. Plan discussed with: Patient SHAREE KHANNA MD Apr 27, 2025 17:17
[2025-04-27 17:41] LABS: Hematocrit 35.5 % (41.0-53.0); Hemoglobin 12.0 g/dL (13.5-17.5); Mean Corpuscular Hemoglobin 32.5 pg (28.0-32.0); Mean Corpuscular Volume 96.1 fL (80.0-100.0); Nucleated Red Blood Cells % 0.0 %
[2025-04-27 17:58] LABS: INR 1.11 (0.9-1.15); Partial Thromboplastin Time 26.8 SEC (24.5-34.5); Prothrombin Time 11.6 sec (9.3-11.8)
[2025-04-27] MEDS: HEPARIN DRIP/D5W 100UNITS/ML 250 ML IV SCH (18:19)
[2025-04-27] MEDS: IPRATROPIUM BROM 0.5 MG/2.5ML INH SOL NEB PRN (18:47)
[2025-04-27] MEDS: ALBUTEROL SULF 2.5 MG/0.5ML(0.5%) NEB SOLN NEB PRN (18:47)
[2025-04-27] MEDS: SODIUM CHL 0.9% 1000 ML BAG XX ONE (18:49)
[2025-04-27] MEDS: MAGNESIUM OXIDE 400 MG TAB PO SCH (21:50)
[2025-04-27] MEDS: ATORVASTATIN 20 MG TAB PO SCH (21:50)
[2025-04-27] MEDS: AMIODARONE HCL 200 MG TAB PO SCH (21:51)
[2025-04-27] MEDS ORDERED: PATIENTS OWN MEDICATION (Magnesium Oxide 1 TAB) PO SCH (22:00)
[2025-04-28] VITALS (20 sets, daily range): BP systolic 108–182; BP diastolic 57–89; PULSE 50–108; RESP 16–33; TEMP 97.4–98.4; O2SAT 92–100
[2025-04-28 01:17] LABS: INR 1.14 (0.9-1.15); Partial Thromboplastin Time 30.4 SEC (24.5-34.5); Prothrombin Time 11.9 sec (9.3-11.8)
[2025-04-28] MEDS: HEPARIN DRIP/D5W 100UNITS/ML 250 ML IV SCH (02:31)
[2025-04-28] MEDS: ACETAMINOPHEN 325 MG TAB PO PRN (02:37)
[2025-04-28] MEDS: HEPARIN SODIUM (PORCINE) 5000 UNITS/ML 1ML VIAL IV ONE (02:40)
[2025-04-28] MEDS: IODIXANOL 320MG/ML 100ML BTL IV ONE ×4 (07:30→10:09)
[2025-04-28] MEDS: LIDOCAINE 2%HCL (LOCAL ANESTH.) INJ 20ML MDV ONE (08:07)
[2025-04-28] MEDS: MIDAZOLAM HCL 2MG/2ML 2ml VIAL (1mg/ml) ONE (08:07)
[2025-04-28] MEDS: fentaNYL CITRATE 100 MCG/2 ML VL ONE (08:07)
[2025-04-28] MEDS: ANGIOMAX 250 MG VIAL IV ONE (08:22)
[2025-04-28] MEDS: SODIUM CHL 0.9% 50 ML ONE (08:22)
[2025-04-28] MEDS ORDERED: PATIENTS OWN MEDICATION (Aspirin (Aspirin Low Dose) 1 TAB) PO SCH (10:00)
[2025-04-28] MEDS ORDERED: CLOPIDOGREL BISULFATE 75 MG TAB PO SCH (10:00)
[2025-04-28] MEDS: CLOPIDOGREL BISULFATE 75 MG TAB PO SCH (10:00)
[2025-04-28] MEDS ORDERED: PATIENTS OWN MEDICATION (Atorvastatin Calcium 1 TAB) PO SCH (10:00)
[2025-04-28] MEDS: CLOPIDOGREL BISULFATE 75 MG TAB ONE ×2 (10:10→11:03)
--- NOTE | 2025-04-28 10:33 | DVHOP2 ---
Operative Report Procedures performed: Left heart catheterization, bilateral coronary angiogram and bypass angiography (CONKLIN to diagonal and SVG to diagonal) PCI (drug-eluting stent deployment) of mid LAD and ostial LAD Ultrasound guided access Moderate sedation lasting more than 45 minutes Diagnosis: Multivessel coronary artery disease Significant lesion in ostial LAD (90%) and also mid LAD (mid LAD lesion was 99% in-stent stenosis), status post drug-eluting stent deployment in mid LAD and also in ostial LAD SPEECH LANGUAGE PATHOLOGIST ASSISTANT of LCX SPEECH LANGUAGE PATHOLOGIST ASSISTANT of RCA Patent SVG to small diagonal Patent CONKLIN to large-sized diagonal Increased EDP Cardiac suggestion for management: Dual antiplatelet therapy (loaded with aspirin/Plavix) for at least 1 year Optimized medical therapy High potency statin, beta blockers and ADIS inhibitor versus ARB Lifestyle and risk factor modifications Findings: LVEDP: 18 mm Hg There was no transaortic valve pressure gradient Left main: Left main was coming off the left sinus of Valsalva and had mild diffuse disease Ramus intermedius: Ramus intermedius was coming off the left main. It was a medium-sized vessel with moderate diffuse disease. LAD: LAD was coming off the left main. It had 90% ostial lesion. There was stent in mid LAD. There was 99% in-stent stenosis. Other portions of LAD had mild diffuse disease. There were 2 diagonals which were nourished via patent grafts. One of them was was nourished via a patent CONKLIN graft. The 2nd one was nourished via a patent SVG graft. LCX: LCX was SPEECH LANGUAGE PATHOLOGIST ASSISTANT at its proximal section. RCA: RCA was SPEECH LANGUAGE PATHOLOGIST ASSISTANT at its proximal section. RCA originally was dominant vessel. CONKLIN to diagonal was patent with no significant lesion. SVG to diagonal was patent with no significant disease in SVG. It is of note that the diagonal itself was a very small-caliber vessel with diffuse disease Presentation: Patient is a 75-year-old gentleman who presented with chest discomfort to the hospital. Does have baseline history of coronary artery disease and has had CABG and PCIs before. He is known to have closed/SPEECH LANGUAGE PATHOLOGIST ASSISTANT of LCX and RCA. He is known to have CONKLIN to diagonal. He is known to have a SVG to small-caliber diagonal. He is known not to have any graft to RCA territory. Recent echocardiogram had revealed ejection fraction of 35-40% and up to moderate aortic stenosis. He does have end-stage renal disease and is on hemodialysis. It is of note that the previous echocardiogram had revealed thinned walled inferior wall which points to previous myocardial infarction of the LCX/RCA territory. He has had PCI to LAD earlier this year. Patient was sent for cardiac catheterization. Procedure: After obtaining informed consent, the patient was brought to the blood and plasma laboratory assistant. He was prepped and draped in sterile fashion. 2 mg of Versed and 50 mcg of fentanyl were used for moderate sedation which lasted more than 45 minutes. We used right femoral artery for access. Under ultrasound guidance, the right femoral artery was accessed. We did use micropuncture for access. After angiographically proving a good access point, the micropuncture sheath was exchanged over a wire to a 6 Maltese femoral sheath. A 6 Maltese JL4 diagnostic catheter was used to perform left coronary angiography. A 6 Maltese JR4 diagnostic catheter was used to perform left heart catheterization (obtaining pressures). The same 6 Maltese JR4 diagnostic catheter was used to perform right coronary angiography and SVG angiography to diagonal. A 6 Maltese IM catheter was used to perform CONKLIN angiography to diagonal. We did recognize the disease in ostial LAD and mid LAD. Recognizing previous echocardiogram findings of thinning of the myocardium in the inferior wall, diseases is in RCA/LCX territory were decided to be left alone and to be managed medically. Patient was started on Angiomax. We used many different guides to attempt to access the LAD (XB 3.5, XB LAD 4) unsuccessfully. 3.75 EBU guiding catheter could help us out. We also used many different wires (run-through wire, Specter wire and BMW wire) unsuccessfully to get into the LAD (ostial LAD was hindering our access). At last, Fielder wire was able to get into the LAD. It is of note that the FREDRICK flow in LAD, prior to any intervention, was FREDRICK 2 flow. We used compliant balloon 2.5 x 15 for predilatation of the mid LAD lesion. This was followed by deploying a drug-eluting moni 3.0 x 26 stent in the mid LAD area (it was a in- stent stenosis disease). This was followed by postdilatation using a 3.0 x 20 noncompliant balloon. At this point, we paid attention to the ostial LAD lesion. We did use a 3.5 x 12 moni compliant balloon for predilatation. At this time, we proceeded with deploying a 3.5 x 12 drug-eluting moni stent in the ostial LAD area. This was followed by a postdilatation using a 3.5 x 8 noncompliant balloon. Repeat angiography revealed well deployed stents. Post interventions, FREDRICK flow in LAD became FREDRICK 3 flow. Remaining disease in mid LAD area was 5%. Remaining disease in ostial LAD area was 0%. There was no dissection/hematoma/perforation. Total bleeding was less than 15 mL. Patient tolerated the procedure with no complication. Right femoral artery access site was managed by deploying an Angio-Seal device. Fluoroscopy time: 41.4 minutes contrast: 450 mL of Visipaque. JOSE DONNELLY MD Apr 28, 2025 10:33
--- NOTE | 2025-04-28 10:37 | DVHPN2 ---
Progress Note - Dictate Date Seen: Apr 28, 2025 Medical Necessity Reason Pt with a Central, PICC or Fol: No vital signs Vital Sign Date Time Temp Pulse Resp B/P (MAP) Pulse Ox O2 Delivery O2 Flow Rate FiO2 04/28/25 05:00 97.6 96 18 126/84 (98) 100 97.6 04/27/25 20:00 Nasal Cannula* 2 28 Total Intake and Output 04/27/25 04/27/25 04/28/25 15:00 23:00 07:00 Intake Total 400 ml 400 ml Balance 400 ml 400 ml medications Current Medications Medications Dose Ordered Sig/Edson Route Start Time Stop Time Status Last Admin Dose Admin Sodium Chloride 10 ml Q8HR IV 04/27/25 14:00 04/28/25 05:48 10 ML Ondansetron HCl 4 mg Q4HP PRN IV 04/27/25 10:30 Morphine Sulfate 2 mg Q30M PRN IV 04/27/25 10:30 Acetaminophen/ Hydrocodone Bitart 1 tab Q4HP PRN PO 04/27/25 10:30 04/27/25 22:42 1 TAB Docusate Sodium 100 mg BIDPRN PRN PO 04/27/25 10:30 Acetaminophen 650 mg Q6HP PRN PO 04/27/25 10:30 04/28/25 02:37 650 MG Nitroglycerin 0.4 mg Q5MINP PRN SL 04/27/25 10:30 04/27/25 15:01 0.4 MG Clopidogrel Bisulfate 75 mg DAILY PO 04/28/25 10:00 Aspirin 81 mg DAILY PO 04/28/25 10:00 Atorvastatin Calcium 40 mg HS PO 04/27/25 22:00 04/27/25 21:50 40 MG Magnesium Oxide 400 mg BID PO 04/27/25 22:00 04/27/25 21:50 400 MG Sevelamer HCl 1,600 mg TIDWM PO 04/27/25 12:00 04/27/25 17:35 1,600 MG Ipratropium Issue 0.5 mg Q6HPRN PRN NEB 04/27/25 14:30 04/27/25 18:47 0.5 MG Albuterol 2.5 mg Q6HPRN PRN NEB 04/27/25 14:30 04/27/25 18:47 2.5 MG Amiodarone HCl 200 mg HS PO 04/27/25 22:00 04/27/25 21:51 200 MG Heparin Sodium/ Dextrose 250 ml @ 11 mls/hr [id number] IV 04/28/25 02:30 04/28/25 02:31 11 MLS/HR laboratory and microbiology Laboratory Tests 04/27/25 17:20 04/27/25 07:30 Test 04/27/25 07:30 Range/Units Serum Glucose 101 74-106 mg/dL Assessment/Plan Patient is a 75-year-old gentleman who presented with few days of intermittent sharp chest pains. They worsened with lying down. It was accompanied with cough and shortness of breath. Cardiology is involved for cardiac aspects of care. His troponin has been mildly elevated. Patient is known to our practice from outside and before. He mentions that he missed his hemodialysis secondary to chest discomfort. Not in acute distress. Lying flat in bed. No JVD. Mucosa is pink and wet. No carotid bruit. Scattered rhonchi in the lungs is heard. No rales. Cardiac: Regular, no thrill. Systolic murmur 2/6 in the apex is heard. Abdomen is soft. There is no gross mass/hepatomegaly. Bowel sound is positive. Extremities do not reveal edema. Dorsalis pedis is 2+ bilateral Past medical history includes end-stage renal disease on hemodialysis, coronary artery disease and status post CABG and PCI, ischemic cardiomyopathy, systolic heart failure, status post right nephrectomy, COPD on home oxygen, hypertension, hyperlipidemia, diabetes mellitus, gallstones, BPH, history of symptomatic V- tach and status post ICD (Biotronik) implantation. He has had pneumonia recently. 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 Patient has had PCI previously. On September 01, 2024 patient had PCI of LAD (shockwave) by Dr. Cardona. Echocardiogram of October 30, 2024 (performed in [facility]) revealed ejection fraction of 35-40%, moderate /MR Echocardiogram of February 21, 2025 revealed ejection fraction of 35-40%, ischemic cardiomyopathy, possible FL in LCX/RCA territory, optimal moderate aortic stenosis, uicgbrix-ik-hpyein mitral regurgitation, vdcy-cp-ixwmgaro tricuspid regurgitation and right ventricular systolic pressure of 39 mm Hg Left heart catheterization of October 23, 2024 revealed CASING TRIMMER of RCA and LCX. Patent stent in LAD. SVG to diagonal (small-vessel) was patent. Thomas to diagonal was patent with no disease. (Images reviewed and thomas may actually have been to ramus intermedius). There was no bypass to the RCA territory. Creatinine: 10.84 Potassium: 5.4 Hemoglobin: 11.8 Troponin (high sensitive): 161 - 155 - 164 Chest x-ray revealed: IMPRESSION: Cardiomegaly. Pulmonary edema. EKG revealed sinus rhythm, old inferior FL, left ventricular hypertrophy Tele reveals sinus rhythm Left heart catheterization was performed: It revealed multivessel coronary artery disease. PCI (drug-eluting stent deployment) of mid LAD lesion (in stenosis area) and ostial LAD was performed. Patient was loaded with aspirin/Plavix. Patient is a 75-year-old gentleman who presented with chest discomfort for around a week. Mentions compliant with medications. Is found to have minimally elevated troponin. Does have history of coronary artery disease and has had CABG/PCI before. Presentation could be secondary to unstable angina/non-STEMI. Had missed his hemodialysis. Does have history of noncompliance with medications and followups. Was found to have mild increase in troponin. Does have baseline history of coronary artery disease and has had PCI in August 2024 and repeated cardiac catheterization was performed in October 2024. Patient has presented with repeated chest discomforts. Recognizing the presentation, repeat left heart catheterization can be justified. Left heart catheterization was performed which revealed coronary artery disease. Patient is status post PCI (drug-eluting stent deployment) of ostial LAD area and also mid LAD (in stent stenosis). Unstable angina/non-STEMI History of coronary artery disease, status post CABG/PCI Acute on chronic systolic heart failure Ventricular tachycardia, history Noncompliant with hemodialysis Ischemic cardiomyopathy End-stage renal disease on hemodialysis Noncompliant with hemodialysis Gallstones Questionable pneumonia Cardiac suggestion for management: Manage on telemetry Follow-up electrolytes and kidney function tests and correct abnormalities Repeated/aggressive hemodialysis Awaiting Echocardiogram Carvedilol: 12.5 mg p.o. b.i.d. Continuation of aspirin/Plavix (81 mg/75 mg) is advised Further evaluation and management depends on the above and clinical course A total of 75 minutes was spent reviewing the patient record, examining the patient, making a diagnostic and therapeutic plan, discussing this plan with medical personnel, following up on diagnostic studies and following the patient for clinical stability excluding any and all procedures. At least 50% of this time was spent in direct, metp-ki-uhaq contact. Thank you for allowing me to participate in this patient's care. Further recommendations will depend on patient's clinical course. Please do not hesitate to contact me if you have any questions or concerns. This medical document was created using electronic medical record system with [employer] LS15 computerized dictation system. Although this document has been carefully reviewed, there may still be some phonetic and typographical errors. These areas are purely typographical due to the imperfection of the software programs, and do not reflect any compromise in the patient's medical care. Plan discussed with: Patient, Other (nurse) JOSE DONNELLY MD Apr 28, 2025 10:37
[2025-04-28] MEDS: CLOPIDOGREL BISULFATE 75 MG TAB PO ONE (10:59)
[2025-04-28] MEDS: NITROGLYCERIN 0.4 MG SL TAB SL ONE ×2 (11:02→12:14)
--- NOTE | 2025-04-28 11:23 | ECG ---
[facility] Test Date: 2025-04-27 Test Time: 07:06:49 Pat Name: MAXIMUS MAR Department: ED Room: [facility]2T B Gender: M Valet Parker: JENNIFER : 1950 Requested By: KANG CHAVIRA Order Number: [id number] Reading MD: Armaan Cardona Measurements Intervals [place] Rate: 86 P: 105 SC: 204 QRS: 27 QRSD: 108 T: 131 QT: 348 QTc: 417 Interpretive Statements Sinus rhythm LVH with secondary repolarization abnormality Inferior infarct, old Electronically Signed On 05-03-2025 13:47:02 PDT by Armaan Cardona Please click the below link to view image of tracing.
[2025-04-28 11:32] LABS: Hematocrit 40.6 % (41.0-53.0); Hemoglobin 13.4 g/dL (13.5-17.5); Mean Corpuscular Hemoglobin 32.8 pg (28.0-32.0); Mean Corpuscular Volume 99.4 fL (80.0-100.0); Nucleated Red Blood Cells % 0.0 %
--- NOTE | 2025-04-28 11:32 | DVHPN2 ---
Subjective Patient denies any symptoms Reviewed: Care Plan, H&P, Labs, Medications, Previous Orders Changes from previous H/P or p: No Changes General: Per HPI Eyes: No Pain, No Vision change, No Conjunctivae inflammation, No Eyelid inflammation, No Other, No Redness ENT: No Ear pain, No Ear discharge, No Nose pain, No Nose discharge, No Nose congestion, No Mouth pain, No Mouth swelling, No Throat pain, No Throat swelling, No Other Cardiovascular: Chest Pain; No Palpitations, No Orthopnea, No Paroxysmal Noc. Dyspnea, No Edema, No Lt Headedness, No Other Respiratory: Cough; No Dry; Shortness of breath; No SOB with excertion, No Wheezing, No Hemoptysis, No Pleuritic Pain, No Sputum, No Other Gastrointestinal: No Nausea, No Vomiting, No Abdominal Pain, No Diarrhea, No Constipation, No Melena, No Hematochezia, No Other Genitourinary: No Dysuria, No Frequency, No Incontinence, No Hematuria, No Retention, No Other Musculoskeletal: No other, No neck pain, No shoulder pain, No arm pain, No back pain, No hand pain, No leg pain, No foot pain Skin: No Rash, No Lesions, No Jaundice, No Bruising, No Other Objective Vitals Vital Signs Date Time Temp Pulse Resp B/P (MAP) Pulse Ox O2 Delivery O2 Flow Rate FiO2 04/28/25 05:00 97.6 96 18 126/84 (98) 100 97.6 04/27/25 20:00 Nasal Cannula* 2 28 Intake/Output Intake and Output 04/28/25 07:00 Intake Total 800 ml Balance 800 ml Intake Oral 800 ml General Appearance: Alert, Oriented X3, Cooperative, mild distress HEENT: Atraumatic, PERRLA Cardiovascular: Normal S1, Normal S2 Abdomen: Normal bowel sounds, Soft, No tenderness, No hepatospenomegaly Musculoskeletal: Normal sensory function, Normal motor function Neuro: Normal speech Skin: Dry Psych/Mental Status: Mental status NL, Mood NL Medications Current Medications Medications Dose Ordered Sig/Edson Route Start Time Stop Time Status Last Admin Dose Admin Sodium Chloride 10 ml Q8HR IV 04/27/25 14:00 04/28/25 05:48 10 ML Ondansetron HCl 4 mg Q4HP PRN IV 04/27/25 10:30 Morphine Sulfate 2 mg Q30M PRN IV 04/27/25 10:30 Acetaminophen/ Hydrocodone Bitart 1 tab Q4HP PRN PO 04/27/25 10:30 04/27/25 22:42 1 TAB Docusate Sodium 100 mg BIDPRN PRN PO 04/27/25 10:30 Acetaminophen 650 mg Q6HP PRN PO 04/27/25 10:30 04/28/25 02:37 650 MG Nitroglycerin 0.4 mg Q5MINP PRN SL 04/27/25 10:30 04/27/25 15:01 0.4 MG Clopidogrel Bisulfate 75 mg DAILY PO 04/28/25 10:00 Aspirin 81 mg DAILY PO 04/28/25 10:00 Atorvastatin Calcium 40 mg HS PO 04/27/25 22:00 04/27/25 21:50 40 MG Magnesium Oxide 400 mg BID PO 04/27/25 22:00 04/27/25 21:50 400 MG Sevelamer HCl 1,600 mg TIDWM PO 04/27/25 12:00 04/27/25 17:35 1,600 MG Ipratropium [place] 0.5 mg Q6HPRN PRN NEB 04/27/25 14:30 04/28/25 11:28 0.5 MG Albuterol 2.5 mg Q6HPRN PRN NEB 04/27/25 14:30 04/28/25 11:28 2.5 MG Amiodarone HCl 200 mg HS PO 04/27/25 22:00 04/27/25 21:51 200 MG Heparin Sodium/ Dextrose 250 ml @ 11 mls/hr [id number] IV 04/28/25 02:30 04/28/25 02:31 11 MLS/HR Laboratory Results Chemistry Test 04/28/25 10:45 Albumin Pending Calcium Level Pending Total Protein Pending Coagulation Test 04/27/25 17:20 04/28/25 00:28 04/28/25 10:45 Prothrombin Time 11.6 sec (9.3-11.8) 11.9 sec (9.3-11.8) H Pending Prothrombin Time INR 1.11 (0.9-1.15) 1.14 (0.9-1.15) Pending Activated Partial Thromboplast Time 26.8 SEC (24.5-34.5) 30.4 SEC (24.5-34.5) Pending LFT Test 04/28/25 10:45 Alanine Aminotransferase (ALT) Pending Alkaline Phosphatase Pending Aspartate Amino Transferase (AST) Pending Total Bilirubin Pending Labs and/or images reviewed: Labs reviewed by me, Image(s) reviewed by me Assessment/Plan Assessment/Plan Impression: -NSTEMI type 1, status post PTCA and stent placement to ostial LAD and mid LAD -coronary artery disease with previous CABG in previous stents -end-stage renal disease with hemodialysis -dyslipidemia -hyperkalemia -acute on chronic systolic heart failure with previous ejection fraction 35% Plan: -cardiology consultation: Patient to cardiac catheterization lab, undergoing PTCA stent placement to LAD x2 -nephrology consultation: Patient plan for HD -continue dual antiplatelet therapy, loaded with Plavix and aspirin in cathead worker -dyslipidemia -echocardiogram pending -repeat labs in a.m. Total time spent with patient discussing and formulating plan of care: 35 minutes. This medical document was created using an electronic medical record system with [employer] dictation system. Although this document has been carefully reviewed, there may still be some phonetic and typographical errors. These areas are purely typographical due to imperfections of the software programs, and do not reflect any compromise in the patient's medical care. Plan discussed with: Patient, Other (RN) Date of Service: Apr 28, 2025 Billing Provider: WOO LOMBARDI NP Common Visit Codes: [id number] INP/OBS CARE(HIGH) WOO LOMBARDI NP Apr 28, 2025 11:32
[2025-04-28] MEDS: CARVEDILOL 3.125 MG TAB PO ONE (11:40)
[2025-04-28 11:43] LABS: Anion Gap 13 (5-15); BUN/Creatinine Ratio 6.3 (10.0-20.0); Calcium 9.9 mg/dL (8.7-10.4); Carbon Dioxide 26 mmol/L (20-31); Potassium 4.8 mmol/L (3.5-5.1); Total Protein 7.6 g/dL (5.7-8.2)
[2025-04-28 11:44] LABS: Albumin 4.1 g/dL (3.2-4.8); Bilirubin, Total 0.4 mg/dL (0.2-1.0)
[2025-04-28 11:48] LABS: Alanine Aminotransferase 45 U/L (7-40); Alkaline Phosphatase 116 U/L (46-116); Blood Urea Nitrogen 54 mg/dL (9-23); Chloride 90 mmol/L (98-107); Glucose 175 mg/dL (74-106); Sodium 129 mmol/L (136-145)
[2025-04-28 12:00] LABS: INR 3.43 (0.9-1.15); Prothrombin Time 32.2 sec (9.3-11.8)
--- NOTE | 2025-04-28 12:06 | DVHPN2 ---
Progress Note - Dictate Date Seen: Apr 28, 2025 Medical Necessity Reason Pt with a Central, PICC or Fol: No Subjective underwent LHC . stenting of LAD done . Post procedure patient with significant shortness of breath vital signs Vital Sign Date Time Temp Pulse Resp B/P (MAP) Pulse Ox O2 Delivery O2 Flow Rate FiO2 04/28/25 11:40 95 131/89 04/28/25 11:38 18 99 04/28/25 11:28 Nasal Cannula* 5 40 04/28/25 10:02 97.4 97.4 Total Intake and Output 04/27/25 04/27/25 04/28/25 15:00 23:00 07:00 Intake Total 400 ml 400 ml Balance 400 ml 400 ml medications Current Medications Medications Dose Ordered Sig/Edson Route Start Time Stop Time Status Last Admin Dose Admin Sodium Chloride 10 ml Q8HR IV 04/27/25 14:00 04/28/25 05:48 10 ML Ondansetron HCl 4 mg Q4HP PRN IV 04/27/25 10:30 Morphine Sulfate 2 mg Q30M PRN IV 04/27/25 10:30 Acetaminophen/ Hydrocodone Bitart 1 tab Q4HP PRN PO 04/27/25 10:30 04/27/25 22:42 1 TAB Docusate Sodium 100 mg BIDPRN PRN PO 04/27/25 10:30 Acetaminophen 650 mg Q6HP PRN PO 04/27/25 10:30 04/28/25 02:37 650 MG Nitroglycerin 0.4 mg Q5MINP PRN SL 04/27/25 10:30 04/27/25 15:01 0.4 MG Clopidogrel Bisulfate 75 mg DAILY PO 04/28/25 10:00 Aspirin 81 mg DAILY PO 04/28/25 10:00 Atorvastatin Calcium 40 mg HS PO 04/27/25 22:00 04/27/25 21:50 40 MG Magnesium Oxide 400 mg BID PO 04/27/25 22:00 04/27/25 21:50 400 MG Sevelamer HCl 1,600 mg TIDWM PO 04/27/25 12:00 04/27/25 17:35 1,600 MG Ipratropium [place] 0.5 mg Q6HPRN PRN NEB 04/27/25 14:30 04/28/25 11:28 0.5 MG Albuterol 2.5 mg Q6HPRN PRN NEB 04/27/25 14:30 04/28/25 11:28 2.5 MG Amiodarone HCl 200 mg HS PO 04/27/25 22:00 04/27/25 21:51 200 MG Heparin Sodium/ Dextrose 250 ml @ 11 mls/hr [id number] IV 04/28/25 02:30 04/28/25 02:31 11 MLS/HR objective Awake alert oriented x3. 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 Patient was dialysed last evening too . continue HD on TTS schedule Plan discussed with: Patient SHAREE KHANNA MD Apr 28, 2025 12:06
[2025-04-28] MEDS: HEPARIN DRIP/D5W 100UNITS/ML 250 ML IV ONE (12:14)
[2025-04-28] MEDS: SODIUM CHL 0.9% 1000 ML BAG XX ONE (12:15)
[2025-04-28 12:23] LABS: Partial Thromboplastin Time > 139.0 SEC (24.5-34.5)
--- NOTE | 2025-04-28 13:45 | CONS ---
Pharmacy Clinical Information: HEPARIN DRIP, ACS PROTOCOL @1045 APTT >139 - HOLD DOSE FOR 1H, RESUME HEPARIN DRIP AT RATE 800 UNITS/HR @1445 NEXT APTT DRAW SCHEDULED @2100 PER RX PROTOCOL CONFIRMED AND READ BACK WITH JADA CHOI,[facility] Apr 28, 2025 13:45
[2025-04-28] MEDS ORDERED: HEPARIN DRIP/D5W 100UNITS/ML 250 ML IV SCH (14:45)
--- NOTE | 2025-04-28 17:03 | DVHSR ---
APPROVED REPORT EXAM: Two-dimensional and M-mode echocardiogram with Doppler and color Doppler. Blood Pressure: 109/64 mmHg INDICATION Chest Pain Surgery/Intervention Pacemaker: CABG: RISK FACTORS Height: 5' 9", Weight: 158 DIMENSIONS LVDd5.8 (3.8-5.7cm)LA (2D)4.6 (1.9-4.0cm)Aortic Root3.3 (2.0-3.7cm) LVDs5.3 (2.5-4.0cm)LA (MM) (1.9-4.0cm)Aortic Cusp Exc1.7 (1.5-2.0cm) EF (%) 25.0 (55-70%)Rt. Atrium4.3 (1.9-4.0cm)Asc. Aorta cm IVSd1.2 (0.7-1.1cm)RV (D) (1.8-2.4cm) PWd1.0 (0.7-1.1cm) Mitral Valve MitralMitral Stenosis E wave1.60m/sMV Mean GR.mmHg A wave0.60m/sMV Peak GR.mmHg E/A ratio2.72D MVAcm2 Aortic Valve Aortic ValveAortic Stenosis V10.80m/Bhavesh Mean GR.4mmHg V21.40m/Bhavesh Peak GR.8mmHg LVOT Diameter2.1 (1.8-2.4cm)Doppler AVA1.98cm2 Pulmonic Valve V20.60m/s Tricuspid Valve TR Velocity3.80m/s [id number] Conclusion Left ventricle: Dilated left ventricle. LVEF was around 30%. Regional variation was seen. More hy pokinesis of inferior wall was seen. Right ventricle is dilated with mildly reduced systolic function. Both atria were dilated. Aortic sclerosis with no stenosis is seen. Trace aortic insufficiency was seen. Moderate mitral reg urgitation was seen. Mild tricuspid regurgitation was seen. Mild pulmonary valve insufficiency was seen. Right ventricular systolic pressure was assessed that 70 mm Hg. There was no pericardial effusion.
[2025-04-28] MEDS: PANTOPRAZOLE 40 MG/10 ML VIAL INJ IV ONE (17:04)
[2025-04-29] VITALS (10 sets, daily range): BP systolic 100–129; BP diastolic 44–84; PULSE 77–102; RESP 16–20; TEMP 97.4–98.7; O2SAT 96–100
--- NOTE | 2025-04-29 07:12 | DVHPN2 ---
Progress Note - Dictate Date Seen: Apr 29, 2025 Medical Necessity Reason Pt with a Central, PICC or Fol: No vital signs Vital Sign Date Time Temp Pulse Resp B/P (MAP) Pulse Ox O2 Delivery O2 Flow Rate FiO2 04/29/25 05:00 98.7 77 20 104/56 (72) 99 98.7 04/28/25 21:15 Nasal Cannula* 5 40 Total Intake and Output 04/28/25 04/28/25 04/29/25 15:00 23:00 07:00 Intake Total 400 ml 130 ml Balance 400 ml 130 ml medications Current Medications Medications Dose Ordered Sig/Edson Route Start Time Stop Time Status Last Admin Dose Admin Sodium Chloride 10 ml Q8HR IV 04/27/25 14:00 04/29/25 05:58 10 ML Ondansetron HCl 4 mg Q4HP PRN IV 04/27/25 10:30 Morphine Sulfate 2 mg Q30M PRN IV 04/27/25 10:30 Acetaminophen/ Hydrocodone Bitart 1 tab Q4HP PRN PO 04/27/25 10:30 04/27/25 22:42 1 TAB Docusate Sodium 100 mg BIDPRN PRN PO 04/27/25 10:30 Acetaminophen 650 mg Q6HP PRN PO 04/27/25 10:30 04/28/25 02:37 650 MG Nitroglycerin 0.4 mg Q5MINP PRN SL 04/27/25 10:30 04/27/25 15:01 0.4 MG Clopidogrel Bisulfate 75 mg DAILY PO 04/28/25 10:00 Aspirin 81 mg DAILY PO 04/28/25 10:00 Atorvastatin Calcium 40 mg HS PO 04/27/25 22:00 04/28/25 21:36 40 MG Magnesium Oxide 400 mg BID PO 04/27/25 22:00 04/28/25 21:36 400 MG Sevelamer HCl 1,600 mg TIDWM PO 04/27/25 12:00 04/28/25 17:05 1,600 MG Ipratropium [place] 0.5 mg Q6HPRN PRN NEB 04/27/25 14:30 04/28/25 11:28 0.5 MG Albuterol 2.5 mg Q6HPRN PRN NEB 04/27/25 14:30 04/28/25 11:28 2.5 MG Amiodarone HCl 200 mg HS PO 04/27/25 22:00 04/28/25 21:35 200 MG Heparin Sodium/ Dextrose 250 ml @ 8 mls/hr Q24H IV 04/28/25 14:45 Cancel Pantoprazole Sodium 40 mg DAILY IV 04/29/25 10:00 laboratory and microbiology Laboratory Tests 04/28/25 10:45 Test 04/28/25 10:45 Range/Units Serum Glucose 175 H 74-106 mg/dL Assessment/Plan Patient is a 75-year-old gentleman who presented with few days of intermittent sharp chest pains. They worsened with lying down. It was accompanied with cough and shortness of breath. Cardiology is involved for cardiac aspects of care. His troponin has been mildly elevated. Patient is known to our practice from outside and before. He mentions that he missed his hemodialysis secondary to chest discomfort. Not in acute distress. Lying flat in bed. No JVD. Mucosa is pink and wet. No carotid bruit. Scattered rhonchi in the lungs is heard. No rales. Cardiac: Regular, no thrill. Systolic murmur 2/6 in the apex is heard. Abdomen is soft. There is no gross mass/hepatomegaly. Bowel sound is positive. Extremities do not reveal edema. Dorsalis pedis is 2+ bilateral Past medical history includes end-stage renal disease on hemodialysis, coronary artery disease and status post CABG and PCI, ischemic cardiomyopathy, systolic heart failure, status post right nephrectomy, COPD on home oxygen, hypertension, hyperlipidemia, diabetes mellitus, gallstones, BPH, history of symptomatic V- tach and status post ICD (Biotronik) implantation. He has had pneumonia recently. It is of note that patient's arranging funeral director was Dr. 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 Patient has had PCI previously. On September 01, 2024 patient had PCI of LAD (shockwave) by Dr. Cardona. 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 Patent stent in LAD. SVG to diagonal (small-vessel) was patent. Thomas to diagonal was patent with no disease. (Images reviewed and thomas may actually have been to ramus intermedius). There was no bypass to the RCA territory. Creatinine: 10.84 8.59 Potassium: 5.4 - 4.8 Hemoglobin: 11.8 - 12.0 - 13.4 Troponin (high sensitive): 161 - 155 - 164 Chest x-ray revealed: IMPRESSION: Cardiomegaly. Pulmonary edema. EKG revealed sinus rhythm, old inferior KS, left ventricular hypertrophy Tele reveals sinus rhythm Echocardiogram revealed: Left ventricle: Dilated left ventricle. LVEF was around 30%. Regional variation was seen. More hypokinesis of inferior wall was seen. Right ventricle is dilated with mildly reduced systolic function. Both atria were dilated. Aortic sclerosis with no stenosis is seen. Trace aortic insufficiency was seen. Moderate mitral regurgitation was seen. Mild tricuspid regurgitation was seen. Mild pulmonary valve insufficiency was seen. Right ventricular systolic pressure was assessed that 70 mm Hg. There was no pericardial effusion. Left heart catheterization was performed: It revealed multivessel coronary artery disease. PCI (drug-eluting stent deployment) of mid LAD lesion (in stenosis area) and ostial LAD was performed. Patient was loaded with aspirin/Plavix. Patient is a 75-year-old gentleman who presented with chest discomfort for around a week. Mentions compliant with medications. Is found to have minimally elevated troponin. Does have history of coronary artery disease and has had CABG/PCI before. Presentation could be secondary to unstable angina/non-STEMI. Had missed his hemodialysis. Does have history of noncompliance with medications and followups. Was found to have mild increase in troponin. Does have baseline history of coronary artery disease and has had PCI in August 2024 and repeated cardiac catheterization was performed in October 2024. Patient has presented with repeated chest discomforts. Recognizing the presentation, repeat left heart catheterization can be justified. Left heart catheterization was performed which revealed coronary artery disease. Patient is status post PCI (drug-eluting stent deployment) of ostial LAD area and also mid LAD (in stent stenosis). Unstable angina/non-STEMI History of coronary artery disease, status post CABG/PCI Acute on chronic systolic heart failure Ventricular tachycardia, history Noncompliant with hemodialysis Ischemic cardiomyopathy End-stage renal disease on hemodialysis Noncompliant with hemodialysis Gallstones Questionable pneumonia Cardiac suggestion for management: Manage on telemetry Follow-up electrolytes and kidney function tests and correct abnormalities Repeated/aggressive hemodialysis Carvedilol: 3.125 mg p.o. b.i.d. Continuation of aspirin/Plavix (81 mg/75 mg) is advised Further evaluation and management depends on the above and clinical course A total of 75 minutes was spent reviewing the patient record, examining the patient, making a diagnostic and therapeutic plan, discussing this plan with medical personnel, following up on diagnostic studies and following the patient for clinical stability excluding any and all procedures. At least 50% of this time was spent in direct, [id number] contact. Thank you for allowing me to participate in this patient's care. Further recommendations will depend on patient's clinical course. Please do not hesitate to contact me if you have any questions or concerns. This medical document was created using electronic medical record system with [employer] computerized dictation system. Although this document has been carefully reviewed, there may still be some phonetic and typographical errors. These areas are purely typographical due to the imperfection of the software programs, and do not reflect any compromise in the patient's medical care. Plan discussed with: Patient, Other (nurse) JOSE DONNELLY MD Apr 29, 2025 07:12
--- NOTE | 2025-04-29 08:08 | ECG ---
[facility] Test Date: 2025-04-28 Test Time: 10:36:45 Pat Name: MAXIMUS MAR Department: Room: 0272T B Gender: M General Assistant: : 1950 Requested By: JOSE DONNELLY Order Number: [id number] Reading MD: Armaan Cardona Measurements Intervals [place] Rate: 79 P: 78 ND: 178 QRS: 69 QRSD: 120 T: 149 QT: 382 QTc: 438 Interpretive Statements Normal sinus rhythm with sinus arrhythmia Incomplete left bundle branch block ST & T wave abnormality, consider anterolateral ischemia Electronically Signed On 05-03-2025 15:25:46 PDT by Armaan Cardona Please click the below link to view image of tracing.
[2025-04-29] MEDS: PANTOPRAZOLE 40 MG/10 ML VIAL INJ IV SCH (08:15)
[2025-04-29] MEDS: CARVEDILOL 3.125 MG TAB PO SCH (08:23)
--- NOTE | 2025-04-29 09:35 | DVHPN2 ---
Subjective Patient reports having bloody bowel movement yesterday after angiogram. Reviewed: Care Plan, H&P, Labs, Medications, Previous Orders Changes from previous H/P or p: No Changes General: Per HPI Eyes: No Pain, No Vision change, No Conjunctivae inflammation, No Eyelid inflammation, No Other, No Redness ENT: No Ear pain, No Ear discharge, No Nose pain, No Nose discharge, No Nose congestion, No Mouth pain, No Mouth swelling, No Throat pain, No Throat swelling, No Other Cardiovascular: Chest Pain; No Palpitations, No Orthopnea, No Paroxysmal Noc. Dyspnea, No Edema, No Lt Headedness, No Other Respiratory: Cough; No Dry; Shortness of breath; No SOB with excertion, No Wheezing, No Hemoptysis, No Pleuritic Pain, No Sputum, No Other Gastrointestinal: No Nausea, No Vomiting, No Abdominal Pain, No Diarrhea, No Constipation, No Melena, No Hematochezia, No Other Genitourinary: No Dysuria, No Frequency, No Incontinence, No Hematuria, No Retention, No Other Musculoskeletal: No other, No neck pain, No shoulder pain, No arm pain, No back pain, No hand pain, No leg pain, No foot pain Skin: No Rash, No Lesions, No Jaundice, No Bruising, No Other Objective Vitals Vital Signs Date Time Temp Pulse Resp B/P (MAP) Pulse Ox O2 Delivery O2 Flow Rate FiO2 04/29/25 08:32 98.1 81 17 112/58 (76) 99 98.1 04/28/25 21:15 Nasal Cannula* 5 40 Intake/Output Intake and Output 04/29/25 07:00 Intake Total 530 ml Balance 530 ml Intake Oral 530 ml # Voids 1 # Bowel Movements 1 General Appearance: Alert, Oriented X3, Cooperative, mild distress HEENT: Atraumatic, PERRLA Cardiovascular: Normal S1, Normal S2 Abdomen: Normal bowel sounds, Soft, No tenderness, No hepatospenomegaly Musculoskeletal: Normal sensory function, Normal motor function Neuro: Normal speech Skin: Dry Psych/Mental Status: Mental status NL, Mood NL Medications Current Medications Medications Dose Ordered Sig/Edson Route Start Time Stop Time Status Last Admin Dose Admin Sodium Chloride 10 ml Q8HR IV 04/27/25 14:00 04/29/25 05:58 10 ML Ondansetron HCl 4 mg Q4HP PRN IV 04/27/25 10:30 Morphine Sulfate 2 mg Q30M PRN IV 04/27/25 10:30 Acetaminophen/ Hydrocodone Bitart 1 tab Q4HP PRN PO 04/27/25 10:30 04/27/25 22:42 1 TAB Docusate Sodium 100 mg BIDPRN PRN PO 04/27/25 10:30 Acetaminophen 650 mg Q6HP PRN PO 04/27/25 10:30 04/28/25 02:37 650 MG Nitroglycerin 0.4 mg Q5MINP PRN SL 04/27/25 10:30 04/27/25 15:01 0.4 MG Clopidogrel Bisulfate 75 mg DAILY PO 04/28/25 10:00 04/29/25 08:16 75 MG Aspirin 81 mg DAILY PO 04/28/25 10:00 04/29/25 08:16 81 MG Atorvastatin Calcium 40 mg HS PO 04/27/25 22:00 04/28/25 21:36 40 MG Magnesium Oxide 400 mg BID PO 04/27/25 22:00 04/29/25 08:16 400 MG Sevelamer HCl 1,600 mg TIDWM PO 04/27/25 12:00 04/29/25 08:15 1,600 MG Ipratropium [place] 0.5 mg Q6HPRN PRN NEB 04/27/25 14:30 04/28/25 11:28 0.5 MG Albuterol 2.5 mg Q6HPRN PRN NEB 04/27/25 14:30 04/28/25 11:28 2.5 MG Amiodarone HCl 200 mg HS PO 04/27/25 22:00 04/28/25 21:35 200 MG Heparin Sodium/ Dextrose 250 ml @ 8 mls/hr Q24H IV 04/28/25 14:45 Cancel Pantoprazole Sodium 40 mg DAILY IV 04/29/25 10:00 04/29/25 08:15 40 MG Carvedilol 3.125 mg Q12HR PO 04/29/25 10:00 Laboratory Results Laboratory Tests 04/28/25 10:45 Chemistry Test 04/28/25 10:45 Albumin 4.1 g/dL (3.2-4.8) Calcium Level 9.9 mg/dL (8.7-10.4) Total Protein 7.6 g/dL (5.7-8.2) Coagulation Test 04/28/25 10:45 Prothrombin Time 32.2 sec (9.3-11.8) H Prothrombin Time INR 3.43 (0.9-1.15) H Activated Partial Thromboplast Time > 139.0 SEC (24.5-34.5) *H LFT Test 04/28/25 10:45 Alanine Aminotransferase (ALT) 45 U/L (7-40) H Alkaline Phosphatase 116 U/L (46-116) Aspartate Amino Transferase (AST) 178 U/L (13-40) H Total Bilirubin 0.4 mg/dL (0.2-1.0) Microbiology Microbiology Date/Time Source Procedure Growth Status 04/27/25 17:30 Nose MRSA Screen - Final Complete Labs and/or images reviewed: Labs reviewed by me, Image(s) reviewed by me Assessment/Plan Assessment/Plan Impression: -NSTEMI type 1, status post PTCA and stent placement to ostial LAD and mid LAD -coronary artery disease with previous CABG in previous stents -end-stage renal disease with hemodialysis -dyslipidemia -hyperkalemia -acute on chronic systolic heart failure with previous ejection fraction 3% -out GI bleed Plan: Events: Patient had repeat hemodialysis yesterday. No reports of letter BM or BM today. -cardiology consultation: Recommendations reviewed -nephrology consultation: Patient be per their discretion -continue dual antiplatelet therapy -continue statins -echocardiogram : Results reviewed -repeat BMP and CBC today Total time spent with patient discussing and formulating plan of care: 35 minutes. This medical document was created using an electronic medical record system with [employer] dictation system. Although this document has been carefully reviewed, there may still be some phonetic and typographical errors. These areas are purely typographical due to imperfections of the software programs, and do not reflect any compromise in the patient's medical care. Plan discussed with: Patient, Other (RN) My Orders RN Orders - WOO LOMBARDI [employer]T SANDER Procedure Category Date Status Time Pantoprazole PHA 04/29/25 In Process (Protonix) 10:00 Basic Metabolic Panel LAB 04/29/25 Logged 09:27 Complete Blood Count LAB 04/29/25 Logged 09:27 Chest Xray 1 View XY 04/29/25 Logged 09:28 Date of Service: Apr 29, 2025 Billing Provider: WOO LOMBARDI NP Common Visit Codes: [id number] INP/OBS CARE(HIGH) WOO LOMBARDI NP Apr 29, 2025 09:35
--- NOTE | 2025-04-29 10:20 | DVH ---
CHEST RADIOGRAPH Indication: chf Technique: Single frontal view of the chest was obtained Comparison: XY CHEST PORTABLE on DOS: 04/27/25, XY CHEST PORTABLE on DOS: 03/27/25, XY CHEST PORTABLE on DOS: 03/24/25, XY CHEST XRAY 1 VIEW on DOS: 03/23/25, XY CHEST XRAY 1 VIEW on DOS: 03/22/25, XY CHEST PORTABLE on DOS: 04/27/25 FINDINGS: Lines and Tubes: Cardiac pacemaker projects over the right chest wall. Lungs: Pulmonary edema. Pleura: Trace left pleural effusion. No pneumothorax. Cardiomediastinal contours: Cardiomegaly. Bones: No acute osseous abnormality. IMPRESSION: Cardiomegaly. Pulmonary edema.
[2025-04-29 15:49] LABS: Hematocrit 37.4 % (41.0-53.0); Hemoglobin 12.3 g/dL (13.5-17.5); Mean Corpuscular Hemoglobin 33.5 pg (28.0-32.0); Mean Corpuscular Volume 102.1 fL (80.0-100.0); Nucleated Red Blood Cells % 0.3 %
[2025-04-29 15:56] LABS: Potassium 4.5 mmol/L (3.5-5.1); Sodium 139 mmol/L (136-145)
[2025-04-29 15:57] LABS: Anion Gap 13 (5-15); Carbon Dioxide 29 mmol/L (20-31)
[2025-04-29 15:58] LABS: Calcium 9.1 mg/dL (8.7-10.4); Chloride 97 mmol/L (98-107)
[2025-04-29 16:02] LABS: BUN/Creatinine Ratio 6.4 (10.0-20.0)
[2025-04-29 16:03] LABS: Blood Urea Nitrogen 40 mg/dL (9-23); Glucose 121 mg/dL (74-106)
--- NOTE | 2025-04-29 17:11 | DVHPN2 ---
Progress Note - Dictate Date Seen: Apr 29, 2025 Medical Necessity Reason Pt with a Central, PICC or Fol: No Subjective Underwent left heart catheterization yesterday. Status post PCI. Dialyzed yesterday urgently postprocedure because of shortness of breaths. Scheduled for dialysis again today. vital signs Vital Sign Date Time Temp Pulse Resp B/P (MAP) Pulse Ox O2 Delivery O2 Flow Rate FiO2 04/29/25 17:01 98.0 84 16 129/72 (91) 100 98.0 04/29/25 10:00 Nasal Cannula 5.0 04/29/25 10:00 28 Total Intake and Output 04/28/25 04/28/25 04/29/25 15:00 23:00 07:00 Intake Total 400 ml 130 ml Balance 400 ml 130 ml medications Current Medications Medications Dose Ordered Sig/Edson Route Start Time Stop Time Status Last Admin Dose Admin Sodium Chloride 10 ml Q8HR IV 04/27/25 14:00 04/29/25 14:25 10 ML Ondansetron HCl 4 mg Q4HP PRN IV 04/27/25 10:30 Morphine Sulfate 2 mg Q30M PRN IV 04/27/25 10:30 Acetaminophen/ Hydrocodone Bitart 1 tab Q4HP PRN PO 04/27/25 10:30 04/27/25 22:42 1 TAB Docusate Sodium 100 mg BIDPRN PRN PO 04/27/25 10:30 Acetaminophen 650 mg Q6HP PRN PO 04/27/25 10:30 04/28/25 02:37 650 MG Nitroglycerin 0.4 mg Q5MINP PRN SL 04/27/25 10:30 04/27/25 15:01 0.4 MG Clopidogrel Bisulfate 75 mg DAILY PO 04/28/25 10:00 04/29/25 08:16 75 MG Aspirin 81 mg DAILY PO 04/28/25 10:00 04/29/25 08:16 81 MG Atorvastatin Calcium 40 mg HS PO 04/27/25 22:00 04/28/25 21:36 40 MG Magnesium Oxide 400 mg BID PO 04/27/25 22:00 04/29/25 08:16 400 MG Sevelamer HCl 1,600 mg TIDWM PO 04/27/25 12:00 04/29/25 13:07 1,600 MG Ipratropium [place] 0.5 mg Q6HPRN PRN NEB 04/27/25 14:30 04/28/25 11:28 0.5 MG Albuterol 2.5 mg Q6HPRN PRN NEB 04/27/25 14:30 04/28/25 11:28 2.5 MG Amiodarone HCl 200 mg HS PO 04/27/25 22:00 04/28/25 21:35 200 MG Heparin Sodium/ Dextrose 250 ml @ 8 mls/hr Q24H IV 04/28/25 14:45 Cancel Pantoprazole Sodium 40 mg DAILY IV 04/29/25 10:00 04/29/25 08:15 40 MG Carvedilol 3.125 mg Q12HR PO 04/29/25 10:00 objective Awake alert oriented x3. Respiratory distress HEENT: Normocephalic, no JVD Lungs: Bilateral rhonchi CVS: S1, S2 regular rate rhythm Abdomen: Soft, bowel sounds present [employer] CLERK: No focal deficits laboratory and microbiology Laboratory Tests 04/29/25 15:22 Test 04/29/25 15:22 Range/Units Serum Glucose 121 H 74-106 mg/dL Problem List End-stage kidney disease on hemodialysis Non ST-elevation [place],s/p LHC and intervention of LAD Acute hypoxic respiratory failure History of coronary artery disease status post CABG Hyperkalemia,resolved Assessment/Plan Continue hemodialysis on TTS schedule. Stable from renal standpoint. Plan discussed with: Patient SHAREE KHANNA MD Apr 29, 2025 17:11
[2025-04-30] VITALS (10 sets, daily range): BP systolic 122–130; BP diastolic 63–79; PULSE 73–94; RESP 16–20; TEMP 36.8; O2SAT 98–100
--- NOTE | 2025-04-30 07:23 | DVHPN2 ---
Progress Note - Dictate Date Seen: Apr 30, 2025 Medical Necessity Reason Pt with a Central, PICC or Fol: No vital signs Vital Sign Date Time Temp Pulse Resp B/P (MAP) Pulse Ox O2 Delivery O2 Flow Rate FiO2 04/30/25 05:00 98.7 85 16 123/67 (85) 100 98.7 04/29/25 21:07 Nasal Cannula 2.0 04/29/25 21:07 28 Total Intake and Output 04/29/25 04/29/25 04/30/25 15:00 23:00 07:00 Intake Total 800 ml 400 ml Balance 800 ml 400 ml medications Current Medications Medications Dose Ordered Sig/Edson Route Start Time Stop Time Status Last Admin Dose Admin Sodium Chloride 10 ml Q8HR IV 04/27/25 14:00 04/30/25 05:50 10 ML Ondansetron HCl 4 mg Q4HP PRN IV 04/27/25 10:30 Morphine Sulfate 2 mg Q30M PRN IV 04/27/25 10:30 Acetaminophen/ Hydrocodone Bitart 1 tab Q4HP PRN PO 04/27/25 10:30 04/27/25 22:42 1 TAB Docusate Sodium 100 mg BIDPRN PRN PO 04/27/25 10:30 Acetaminophen 650 mg Q6HP PRN PO 04/27/25 10:30 04/28/25 02:37 650 MG Nitroglycerin 0.4 mg Q5MINP PRN SL 04/27/25 10:30 04/27/25 15:01 0.4 MG Clopidogrel Bisulfate 75 mg DAILY PO 04/28/25 10:00 04/29/25 08:16 75 MG Aspirin 81 mg DAILY PO 04/28/25 10:00 04/29/25 08:16 81 MG Atorvastatin Calcium 40 mg HS PO 04/27/25 22:00 04/29/25 21:48 40 MG Magnesium Oxide 400 mg BID PO 04/27/25 22:00 04/29/25 21:53 400 MG Sevelamer HCl 1,600 mg TIDWM PO 04/27/25 12:00 04/29/25 18:34 1,600 MG Ipratropium [place] 0.5 mg Q6HPRN PRN NEB 04/27/25 14:30 04/28/25 11:28 0.5 MG Albuterol 2.5 mg Q6HPRN PRN NEB 04/27/25 14:30 04/28/25 11:28 2.5 MG Amiodarone HCl 200 mg HS PO 04/27/25 22:00 04/29/25 21:53 200 MG Heparin Sodium/ Dextrose 250 ml @ 8 mls/hr Q24H IV 04/28/25 14:45 Cancel Pantoprazole Sodium 40 mg DAILY IV 04/29/25 10:00 04/29/25 08:15 40 MG Carvedilol 3.125 mg Q12HR PO 04/29/25 10:00 04/29/25 21:52 3.125 MG laboratory and microbiology Laboratory Tests 04/29/25 15:22 Test 04/29/25 15:22 Range/Units Serum Glucose 121 H 74-106 mg/dL Assessment/Plan Patient is a 75-year-old gentleman who presented with few days of intermittent sharp chest pains. They worsened with lying down. It was accompanied with cough and shortness of breath. Cardiology is involved for cardiac aspects of care. His troponin has been mildly elevated. Patient is known to our practice from outside and before. He mentions that he missed his hemodialysis secondary to chest discomfort. Not in acute distress. Lying flat in bed. No JVD. Mucosa is pink and wet. No carotid bruit. Scattered rhonchi in the lungs is heard. No rales. Cardiac: Regular, no thrill. Systolic murmur 2/6 in the apex is heard. Abdomen is soft. There is no gross mass/hepatomegaly. Bowel sound is positive. Extremities do not reveal edema. Dorsalis pedis is 2+ bilateral Past medical history includes end-stage renal disease on hemodialysis, coronary artery disease and status post CABG and PCI, ischemic cardiomyopathy, systolic heart failure, status post right nephrectomy, COPD on home oxygen, hypertension, hyperlipidemia, diabetes mellitus, gallstones, BPH, history of symptomatic V- tach and status post ICD (Biotronik) implantation. He has had pneumonia recently. It is of note that patient's research management associate was Dr. 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 Patient has had PCI previously. On September 01, 2024 patient had PCI of LAD (shockwave) by Dr. Cardona. Echocardiogram of October 30, 2024 (performed in [facility]) revealed ejection fraction of 35-40%, moderate /MR Echocardiogram of February 21, 2025 revealed ejection fraction of 35-40%, ischemic cardiomyopathy, possible IA in LCX/RCA territory, optimal moderate aortic stenosis, [id number] mitral regurgitation, [id number] tricuspid regurgitation and right ventricular systolic pressure of 39 mm Hg Left heart catheterization of October 23, 2024 revealed [employer] of RCA and LCX. Patent stent in LAD. SVG to diagonal (small-vessel) was patent. Thomas to diagonal was patent with no disease. (Images reviewed and thomas may actually have been to ramus intermedius). There was no bypass to the RCA territory. Creatinine: 10.84 - 8.59 - 6.28 Potassium: 5.4 - 4.8 - 4.5 Hemoglobin: 11.8 - 12.0 - 13.4 - 12.3 Troponin (high sensitive): 161 - 155 - 164 Chest x-ray revealed: IMPRESSION: Cardiomegaly. Pulmonary edema. Repeat chest xry revealed: IMPRESSION: Cardiomegaly. Pulmonary edema. EKG revealed sinus rhythm, old inferior IA, left ventricular hypertrophy Tele reveals sinus rhythm Echocardiogram revealed: Left ventricle: Dilated left ventricle. LVEF was around 30%. Regional variation was seen. More hypokinesis of inferior wall was seen. Right ventricle is dilated with mildly reduced systolic function. Both atria were dilated. Aortic sclerosis with no stenosis is seen. Trace aortic insufficiency was seen. Moderate mitral regurgitation was seen. Mild tricuspid regurgitation was seen. Mild pulmonary valve insufficiency was seen. Right ventricular systolic pressure was assessed that 70 mm Hg. There was no pericardial effusion. Left heart catheterization was performed: It revealed multivessel coronary artery disease. PCI (drug-eluting stent deployment) of mid LAD lesion (in stenosis area) and ostial LAD was performed. Patient was loaded with aspirin/Plavix. Patient is a 75-year-old gentleman who presented with chest discomfort for around a week. Mentions compliant with medications. Is found to have minimally elevated troponin. Does have history of coronary artery disease and has had CABG/PCI before. Presentation could be secondary to unstable angina/non-STEMI. Had missed his hemodialysis. Does have history of noncompliance with medications and followups. Was found to have mild increase in troponin. Does have baseline history of coronary artery disease and has had PCI in August 2024 and repeated cardiac catheterization was performed in October 2024. Patient has presented with repeated chest discomforts. Recognizing the presentation, repeat left heart catheterization can be justified. Left heart catheterization was performed which revealed coronary artery disease. Patient is status post PCI (drug-eluting stent deployment) of ostial LAD area and also mid LAD (in stent stenosis). Unstable angina/non-STEMI History of coronary artery disease, status post CABG/PCI Acute on chronic systolic heart failure Ventricular tachycardia, history Noncompliant with hemodialysis Ischemic cardiomyopathy End-stage renal disease on hemodialysis Noncompliant with hemodialysis Gallstones Questionable pneumonia Cardiac suggestion for management: Manage on telemetry Follow-up electrolytes and kidney function tests and correct abnormalities Repeated/aggressive hemodialysis Carvedilol: 3.125 mg p.o. b.i.d. Continuation of aspirin/Plavix (81 mg/75 mg) is advised Cardiac brothers, can be followed as outpatient Further evaluation and management depends on the above and clinical course A total of 75 minutes was spent reviewing the patient record, examining the patient, making a diagnostic and therapeutic plan, discussing this plan with medical personnel, following up on diagnostic studies and following the patient for clinical stability excluding any and all procedures. At least 50% of this time was spent in direct, [id number] contact. Thank you for allowing me to participate in this patient's care. Further recommendations will depend on patient's clinical course. Please do not hesitate to contact me if you have any questions or concerns. This medical document was created using electronic medical record system with [employer] computerized dictation system. Although this document has been carefully reviewed, there may still be some phonetic and typographical errors. These areas are purely typographical due to the imperfection of the software programs, and do not reflect any compromise in the patient's medical care. Plan discussed with: Patient, Other (nurse) JOSE DONNELLY MD Apr 30, 2025 07:23
[2025-04-30] MEDS ORDERED: ASPI1TAB20 PO (10:42)
[2025-04-30] MEDS ORDERED: CLOP75TA28 PO (10:42)
--- NOTE | 2025-04-30 10:49 | DVHDS2 ---
Discharge Summary Date of Admission Apr 27, 2025 at 10:10 Date of Discharge: Apr 30, 2025 Admitting Diagnosis Elevated troponin Labs/Diagnostic Data: Laboratory Results Test 04/29/25 15:22 04/28/25 10:45 04/28/25 10:42 04/27/25 10:36 White Blood Count 5.3 10^3/uL (4.4-10.8) Red Blood Count 3.67 10^6/uL (4.5-5.90) Hemoglobin 12.3 g/dL (13.5-17.5) Hematocrit 37.4 % (41.0-53.0) Mean Corpuscular Volume 102.1 fL (80.0-100.0) Mean Corpuscular Hemoglobin 33.5 pg (28.0-32.0) Mean Corpuscular Hemoglobin Concent 32.8 g/dL (32.0-36.0) Red Cell Distribution Width 17.0 % (11.8-14.3) Platelet Count 126 10^3/uL (140-450) Mean Platelet Volume 7.4 fL (6.9-10.8) Neutrophils (%) (Auto) 68.0 % (37.0-80.0) Lymphocytes (%) (Auto) 13.9 % (10.0-50.0) Monocytes (%) (Auto) 16.5 % (0.0-12.0) Eosinophils (%) (Auto) 1.0 % (0.0-7.0) Basophils (%) (Auto) 0.6 % (0.0-2.0) Neutrophils # (Auto) 3.6 10 ^3/uL (1.6-8.6) Lymphocytes # (Auto) 0.7 10 ^3/uL (0.4-5.4) Monocytes # (Auto) 0.9 10 ^3/uL (0-1.3) Eosinophils # (Auto) 0.1 10 ^3/uL (0-0.8) Basophils # (Auto) 0 10 ^3/uL (0-0.2) Nucleated Red Blood Cells 0.3 % Sodium Level 139 mmol/L (136-145) Potassium Level 4.5 mmol/L (3.5-5.1) Chloride Level 97 mmol/L (98-107) Carbon Dioxide Level 29 mmol/L (20-31) Anion Gap 13 (5-15) Blood Urea Nitrogen 40 mg/dL (9-23) Creatinine 6.28 mg/dL (0.700-1.30) Glomerular Filtration Rate Calc 9 mL/min (>90) BUN/Creatinine Ratio 6.4 (10.0-20.0) Serum Glucose 121 mg/dL (74-106) Calcium Level 9.1 mg/dL (8.7-10.4) Prothrombin Time 32.2 sec (9.3-11.8) Prothrombin Time INR 3.43 (0.9-1.15) Activated Partial Thromboplast Time > 139.0 SEC (24.5-34.5) Total Bilirubin 0.4 mg/dL (0.2-1.0) Aspartate Amino Transferase (AST) 178 U/L (13-40) Alanine Aminotransferase (ALT) 45 U/L (7-40) Alkaline Phosphatase 116 U/L (46-116) Total Protein 7.6 g/dL (5.7-8.2) Albumin 4.1 g/dL (3.2-4.8) POC Glucose 191 mg/dl (70-106) Troponin I High Sensitivity 164 ng/L (</=54) Test 04/27/25 07:30 Hepatitis B Surface Antigen Negative (Negative) Other Laboratory Tests 04/29/25 15:22 Brief Hx & Hospital Course: History of Present Illness Bernard Mccauley Jr is a 75-year-old male with past medical history of hypertension, coronary artery disease, CHF, ESRD on HD, and COPD, who came to the hospital for chest pain. Patient states he has been experiencing chest pain for about 1 week. He states it feels like a heaviness, worse with exertion, deep breaths, and laying down, with an associated cough and right hand numbness. Patient was scheduled to have HD this morning. However, when he called and explained his symptoms he was instructed to go to the hospital to be evaluated. Course of hospitalization: Cardiology consultation was obtained with the patient subsequently being transferred to the cardiac catheterization lab. Findings were proximal in mid LAD with noted InStent stenosis. Patient underwent PTCA and stent placement x2. Patient's chest pain and heart failure symptoms resolved. Patient was continued on hemodialysis while in the hospital. It was noted with the patient had bloody bowel movements in the day of cardiac catheterization, which resolved after cessation of heparin drip. Patient's currently asymptomatic and is agreeable to be discharged home. He will follow up with his established hemodialysis chair time which is tomorrow, follow up with Dr. Hager in 1-2 weeks, as well as following up with his PCP in 1-2 weeks. He will be continued on Plavix 75 mg p.o. daily as well as aspirin 81 mg p.o. daily in addition to his previous home medications. Physical examination General: Alert and Oriented x3. No acute distress. Well-nourished. Eyes: EOMI. Anicteric. HENT: Moist mucous membranes. Lungs: Clear to auscultation bilaterally. No accessory muscle use. Cardiovascular: Regular rate and rhythm. No murmur. No JVD. Abdomen: Soft, non-tender and non-distended. No palpable masses. Extremities: No edema. Non-tender. Skin: No rashes or lesions. Warm. Neurologic: No focal neurological deficits. CN II-XII grossly intact, but not individually tested. Psychiatric: Cooperative. Appropriate mood and affect. Total time spent with patient discussing and formulating plan of care: 35 minutes. This medical document was created using an electronic medical record system with [employer] dictation system. Although this document has been carefully reviewed, there may still be some phonetic and typographical errors. These areas are purely typographical due to imperfections of the software programs, and do not reflect any compromise in the patient's medical care. Consults/Reason for consult Cardiology: NSTEMI Operations or Procedures PTCA and stent placement to ostial and mid LAD Condition at Discharge: Guarded Final Diagnosis/Problems List -NSTEMI type 1, status post PTCA and stent placement to ostial LAD and mid LAD -coronary artery disease with previous CABG in previous stents -end-stage renal disease with hemodialysis -dyslipidemia -hyperkalemia -acute on chronic systolic heart failure with previous ejection fraction 3% -ruled out GI bleed Discharge Disposition: Home Discharge Instruct/Medications Diet: Consistent carbohydrate, Cardiac 2g Na,low cholest, Renal Activity: No Restrictions, As Tolerated Follow Up/Referral: Follow up with Dr. Hager in 1-2 weeks Follow up with PCP in 1-2 weeks Continue with established hemodialysis chair time Medications: Aspirin 81 mg p.o. daily Plavix 75 mg p.o. daily Continue all previous home medications Scheduled Albuterol Sulfate (Albuterol Sulfate), 1.25 MG IN QIDP Aspirin (Aspirin Low Dose), 1 TAB PO DAILY, (Reported) Aspirin (Aspir-81), 1 TAB PO DAILY Atorvastatin Calcium (Atorvastatin Calcium), 1 TAB PO DAILY, (Reported) Carvedilol (Carvedilol), 1 TAB PO BID, (Reported) Clopidogrel Bisulfate (Clopidogrel), 1 TAB PO DAILY, (Reported) Clopidogrel Bisulfate (Plavix), 1 TAB PO DAILY Ergocalciferol (Vitamin D), 1 CAP PO QWEEKLY, (Reported) Furosemide (Furosemide), 1 TAB PO DAILY, (Reported) Ipratropium [place] (Ipratropium [place]), 0.5 % HHN QIDP Isosorbide Mononitrate (Isosorbide Mononitrate Er), 1 TAB PO DAILY, (Reported) Magnesium Oxide (Magnesium Oxide), 1 TAB PO BID Meloxicam (Meloxicam), 1 TAB PO DAILY, (Reported) Nitroglycerin (Nitrostat), 1 TAB PO UD, (Reported) Omeprazole (Omeprazole Dr), 1 CAP PO DAILY, (Reported) Oxycodone HCl (Oxycodone Hydrochloride), 1 TAB PO QID, (Reported) Ranolazine (Ranolazine ER), 1 TAB PO BID, (Reported) Sevelamer Carbonate (Renvela), 2 TAB PO TID, (Reported) Discontinued Medications Carvedilol (Coreg), 12.5 MG PO BID Magnesium Oxide (Magnesium Oxide), 1 TAB PO DAILY, (Reported) 36 Discharge Statement: "Patient was advised to return to the ER or call 911 if any headaches, dizziness, shortness of breath, chest pain, abdominal pain, bleeding, fevers, or worsening of medical condition. Patient was counseled about treatment plan, medications, possible side effects, patientverbalized understanding. All questions were answered to the best of my ability. This discharge took greater then 30 minutes in planning, reviewing documentation, counseling the patient, and discussing with other team members." ASSESSMENT ASSESSMENT Assessment NSTEMI type 2 Date of Service: Apr 30, 2025 Billing Provider: WOO LOMBARDI NP Common Visit Codes: 93336-XUO/OBS DISCH DAY >30min WOO LOMBARDI NP Apr 30, 2025 10:49
--- NOTE | 2025-04-30 10:56 | DVHPN2 ---
Progress Note - Dictate Date Seen: Apr 30, 2025 Medical Necessity Reason Pt with a Central, PICC or Fol: No Subjective No acute issues. vital signs Vital Sign Date Time Temp Pulse Resp B/P (MAP) Pulse Ox O2 Delivery O2 Flow Rate FiO2 04/30/25 09:08 77 131/73 04/30/25 09:00 98.3 18 98 98.3 04/30/25 07:55 Nasal Cannula* 2 28 Total Intake and Output 04/29/25 04/29/25 04/30/25 15:00 23:00 07:00 Intake Total 800 ml 400 ml Balance 800 ml 400 ml medications Current Medications Medications Dose Ordered Sig/Edson Route Start Time Stop Time Status Last Admin Dose Admin Sodium Chloride 10 ml Q8HR IV 04/27/25 14:00 04/30/25 05:50 10 ML Ondansetron HCl 4 mg Q4HP PRN IV 04/27/25 10:30 Morphine Sulfate 2 mg Q30M PRN IV 04/27/25 10:30 Acetaminophen/ Hydrocodone Bitart 1 tab Q4HP PRN PO 04/27/25 10:30 04/27/25 22:42 1 TAB Docusate Sodium 100 mg BIDPRN PRN PO 04/27/25 10:30 Acetaminophen 650 mg Q6HP PRN PO 04/27/25 10:30 04/28/25 02:37 650 MG Nitroglycerin 0.4 mg Q5MINP PRN SL 04/27/25 10:30 04/27/25 15:01 0.4 MG Clopidogrel Bisulfate 75 mg DAILY PO 04/28/25 10:00 04/30/25 09:06 75 MG Aspirin 81 mg DAILY PO 04/28/25 10:00 04/30/25 09:07 81 MG Atorvastatin Calcium 40 mg HS PO 04/27/25 22:00 04/29/25 21:48 40 MG Magnesium Oxide 400 mg BID PO 04/27/25 22:00 04/30/25 09:07 400 MG Sevelamer HCl 1,600 mg TIDWM PO 04/27/25 12:00 04/30/25 08:32 1,600 MG Ipratropium [place] 0.5 mg Q6HPRN PRN NEB 04/27/25 14:30 04/28/25 11:28 0.5 MG Albuterol 2.5 mg Q6HPRN PRN NEB 04/27/25 14:30 04/28/25 11:28 2.5 MG Amiodarone HCl 200 mg HS PO 04/27/25 22:00 04/29/25 21:53 200 MG Heparin Sodium/ Dextrose 250 ml @ 8 mls/hr Q24H IV 04/28/25 14:45 Cancel Pantoprazole Sodium 40 mg DAILY IV 04/29/25 10:00 04/30/25 09:06 40 MG Carvedilol 3.125 mg Q12HR PO 04/29/25 10:00 04/30/25 09:08 3.125 MG objective Awake alert oriented x3. Respiratory distress HEENT: Normocephalic, no JVD Lungs: Bilateral rhonchi CVS: S1, S2 regular rate rhythm Abdomen: Soft, bowel sounds present STONE REPAIRER: No focal deficits laboratory and microbiology Laboratory Tests 04/29/25 15:22 Test 04/29/25 15:22 Range/Units Serum Glucose 121 H 74-106 mg/dL Problem List End-stage kidney disease on hemodialysis Non ST-elevation AL,s/p LHC and intervention of LAD Acute hypoxic respiratory failure History of coronary artery disease status post CABG Hyperkalemia,resolved Assessment/Plan Continue hemodialysis on TTS schedule. Cleared from renal standpoint for discharge Plan discussed with: Patient SHAREE KHANNA MD Apr 30, 2025 10:55
[2025-04-30 11:44] LABS: Sodium 136 mmol/L (136-145)
[2025-04-30 11:45] LABS: Anion Gap 10 (5-15); Calcium 9.6 mg/dL (8.7-10.4); Carbon Dioxide 28 mmol/L (20-31)
[2025-04-30 11:50] LABS: BUN/Creatinine Ratio 5.4 (10.0-20.0); Glucose 84 mg/dL (74-106)
[2025-04-30 11:56] LABS: Blood Urea Nitrogen 47 mg/dL (9-23); Chloride 98 mmol/L (98-107)
[2025-04-30 11:58] LABS: Potassium 5.6 mmol/L (3.5-5.1)
[2025-04-30] MEDS: SODIUM ZIRCONIUM CYCL 10 GM PAK PO ONE (12:33)
== END 2025-04-30 15:40 | disposition home or self-care (01) | DRG 321 ==
LOC: ER 06:59 → OVERFLOW 10:10 → ER 10:21 → TELE-WESTW 14:55
PROVIDERS: ADMIT Nurse Practitioner Acute Care; ATTEND Nurse Practitioner Acute Care
PROC: 5A1D70Z Performance of Urinary Filtration, Intermittent, Less than 6 Hours Per Day (ICD-10-PCS; 2025-04-27)
PROC: 027035Z Dilation of Coronary Artery, One Artery with Two Drug-eluting Intraluminal Devices, Percutaneous Approach (ICD-10-PCS; principal; 2025-04-28)
PROC: 4A023N7 Measurement of Cardiac Sampling and Pressure, Left Heart, Percutaneous Approach (ICD-10-PCS; 2025-04-28)
PROC: B213YZZ Fluoroscopy of Multiple Coronary Artery Bypass Grafts using Other Contrast (ICD-10-PCS; 2025-04-28)
PROC: B211YZZ Fluoroscopy of Multiple Coronary Arteries using Other Contrast (ICD-10-PCS; 2025-04-28)
PROC: 5A1D70Z Performance of Urinary Filtration, Intermittent, Less than 6 Hours Per Day (ICD-10-PCS; 2025-04-28)
PROC: 5A1D70Z Performance of Urinary Filtration, Intermittent, Less than 6 Hours Per Day (ICD-10-PCS; 2025-04-29)
DX: T82.855A Stenosis of coronary artery stent, initial encounter (principal); I21.4 Non-ST elevation (NSTEMI) myocardial infarction; I50.23 Acute on chronic systolic (congestive) heart failure; N18.6 End stage renal disease; J96.01 Acute respiratory failure with hypoxia; I13.2 Hypertensive heart and chronic kidney disease with heart failure and with stage 5 chronic kidney disease, or end stage renal disease; E11.22 Type 2 diabetes mellitus with diabetic chronic kidney disease; J44.9 Chronic obstructive pulmonary disease, unspecified; E87.5 Hyperkalemia; E78.5 Hyperlipidemia, unspecified; N40.0 Benign prostatic hyperplasia without lower urinary tract symptoms; I35.0 Nonrheumatic aortic (valve) stenosis; I34.0 Nonrheumatic mitral (valve) insufficiency; K80.20 Calculus of gallbladder without cholecystitis without obstruction; I25.10 Atherosclerotic heart disease of native coronary artery without angina pectoris; Z87.891 Personal history of nicotine dependence; Z90.5 Acquired absence of kidney; Z91.148 Patient's other noncompliance with medication regimen for other reason; Z99.81 Dependence on supplemental oxygen; Z99.2 Dependence on renal dialysis; Z95.1 Presence of aortocoronary bypass graft; Z79.82 Long term (current) use of aspirin; Z79.899 Other long term (current) drug therapy; Z91.158 Patient's noncompliance with renal dialysis for other reason; Z95.810 Presence of automatic (implantable) cardiac defibrillator; Y84.8 Other medical procedures as the cause of abnormal reaction of the patient, or of later complication, without mention of misadventure at the time of the procedure; Y92.89 Other specified places as the place of occurrence of the external cause
CPT/HCPCS: 36415; 71045; 80048; 80053; 82962; 84484; 85025; 85610; 85730; 86850; 86900; 86901; 87081; 87340; 90935; 92941; 93005; 93306; 93459; 94640; 99152; 99291; C1887; C1894; G0378; J2250; J2470; Q9967

== ENCOUNTER 2025-06-28 08:54 | Outpatient (CLI) | payer MEDICARE ==
[~2025-06-28 08:54] MED LIST changes: +ASPI1TAB20 PO; -CARV-216 PO; +CARV6.2551 PO; +CLOP75TA28 PO; -MAGN400T6 PO
[2025-06-28 10:32] LABS: Alanine Aminotransferase 26 U/L (7-40); Anion Gap 11 (5-15); BUN/Creatinine Ratio 4.3 (10.0-20.0); Calcium 10.3 mg/dL (8.7-10.4); Potassium 4.3 mmol/L (3.5-5.1); Sodium 137 mmol/L (136-145); Total Protein 7.5 g/dL (5.7-8.2); Triglycerides 50 mg/dL (< 150)
[2025-06-28 10:33] LABS: Albumin 4.3 g/dL (3.2-4.8); Alkaline Phosphatase 172 U/L (46-116); Blood Urea Nitrogen 39 mg/dL (9-23); Carbon Dioxide 34 mmol/L (20-31); Chloride 92 mmol/L (98-107); Cholesterol 100 mg/dL (< 200); Glucose 58 mg/dL (74-106); Magnesium 3.2 mg/dL (1.6-2.6)
[2025-06-28 10:34] LABS: Bilirubin, Direct 0.1 mg/dL (<0.3); HDL Cholesterol 51 mg/dL (40-59)
[2025-06-28 10:37] LABS: Hemoglobin 12.7 g/dL (13.5-17.5); Nucleated Red Blood Cells % 0.1 %
[2025-06-28 10:39] LABS: Hematocrit 36.7 % (41.0-53.0); Mean Corpuscular Hemoglobin 35.7 pg (28.0-32.0); Mean Corpuscular Volume 103.3 fL (80.0-100.0)
[2025-06-28 10:42] LABS: Bilirubin, Total 0.2 mg/dL (0.2-1.0)
== END 2025-06-28 17:00 | disposition home or self-care (01) ==
LOC: LAB 08:54
PROVIDERS: ATTEND Specialist
DX: I11.0 Hypertensive heart disease with heart failure (principal); I50.9 Heart failure, unspecified; E11.9 Type 2 diabetes mellitus without complications; E78.5 Hyperlipidemia, unspecified; E83.40 Disorders of magnesium metabolism, unspecified; E03.9 Hypothyroidism, unspecified; D64.9 Anemia, unspecified; R68.89 Other general symptoms and signs
CPT/HCPCS: 36415; 80053; 80061; 82248; 83036; 83735; 84443; 85025